=== PATIENT | male | born 1945 | race Hispanic/Latino ===

== ENCOUNTER 2016-11-05 21:07 | Inpatient (IN) | payer MEDICARE, OTHER ==
[2016-11-05] MEDS ORDERED: Albuterol-Ipratrop 3 mg / 0.5 (3 ml) UD IH STA (21:20)
[2016-11-05] MEDS ORDERED: Albuterol-Ipratrop 3 mg / 0.5 (3 ml) UD ONE (21:22)
[2016-11-05 21:49] LABS: BASO # 0.04 K/mm3 (0.0-2.0); BASO % 0.6 % (0.0-3.0); EOS # 0.2 (0.0-0.7); EOS % 2.8 % (1.5-5.0); GRAN # 5.05 (1.4-6.5); GRAN % 69.5 % (50.0-68.0); HEMATOCRIT 30.1 % (42.0-52.0); LYMPH # 1.1 (1.2-3.4); LYMPH % 14.5 % (22.0-35.0); MEAN CELL VOLUME 91.2 fl (80.0-105.0); MEAN CORPUSCULAR HEMOGLOBIN 33.9 pg (25.0-35.0); MEAN CORPUSCULAR HGB CONC 37.2 g/dl (31.0-37.0); MEAN PLATELET VOLUME 11.8 fl (7.0-11.0); MONO # 0.9 (0.1-0.6); MONO % 12.6 % (1.0-6.0); RED CELL DISTRIBUTION WIDTH 16.7 % (11.5-14.5); WHITE BLOOD COUNT 7.3 10^3/ul (4.5-11.0)
[2016-11-05 21:54] LABS: BILIRUBIN,TOTAL 1.7 mg/dL (0.2-1.3); CALCIUM 9.5 mg/dL (8.4-10.5); POTASSIUM 4.6 mmol/L (3.6-5.0)
[2016-11-05 22:07] LABS: TROPONIN I 0.01 ng/mL
--- NOTE | 2016-11-05 22:17 | ED PDOC ---
Arrival/HPI - General Chief Complaint: Shortness Of Breath Time Seen by Provider: 11/05/16 21:08 Historian: Patient - History of Present Illness Narrative History of Present Illness (Text): 11/05/16 21:35 A 71 year old male, whose past medical history includes hypertension, atrial fibrillation, and asbestosis, presents to the emergency department complaining of shortness of breath for 1 day. Patient denies of fever, chills, nausea, vomiting, diarrhea, abdominal pain, chest pain, or any other complaints. PMD: Dr. Reyes Time/Duration: 24 hours Symptom Onset: Sudden Symptom Course: Unchanged Activities at Onset: Rest, Light Context: Home Past Medical History - Provider Review Nursing Documentation Reviewed: Yes - Cardiac Hx Atrial Fibrillation: Yes Hx Hypertension: Yes - Pulmonary Hx Respiratory Disorders: Yes (asbestosis) - Neurological Hx Paralysis: No - HEENT Hx Macular Degeneration: Yes - Renal Hx Renal Disorder: No Hx Kidney Stones: Yes (several times) - Endocrine/Metabolic Hx Diabetes Mellitus Type 2: Yes Hx Hypothyroidism: Yes - Hematological/Oncological Hx Blood Transfusions: No Hx Blood Transfusion Reaction: No - Integumentary Hx Dermatological Disorder: No Other/Comment: ble brown skin discolorations - Musculoskeletal/Rheumatological Hx Musculoskeletal Disorders: Yes - Gastrointestinal Hx Gastrointestinal Disorders: Yes (colon polyps) - Genitourinary/Gynecological Other/Comment: kidney stones - Psychiatric Hx Emotional Abuse: No Hx Physical Abuse: No Hx Substance Use: No - Surgical History Hx Cholecystectomy: Yes Other/Comment: hernia repair. bilateral knee surgery - Anesthesia Hx Anesthesia Reactions: No Hx Malignant Hyperthermia: No - Suicidal Assessment Feels Threatened In Home Enviroment: No Family/Social History - Physician Review Nursing Documentation Reviewed: Yes Family/Social History: No Known Family HX Smoking Status: Former Smoker Hx Alcohol Use: No (SOCIALLY) Hx Substance Use: No Allergies/Home Meds Allergies/Adverse Reactions: Allergies No Known Allergies Allergy (Verified 11/05/16 21:11) Home Medications: Home Meds Medication Instructions Recorded Confirmed Cholecalciferol (Vitamin D3) 5,000 iu PO DAILY 10/08/14 11/05/16 [Vitamin D3] Aspirin [Ecotrin] 81 mg PO DAILY 04/30/15 11/09/16 Insulin Aspart Prot/Insuln Asp 25 units SQ BID 04/30/15 11/05/16 [Novolog Mix 70-30 Vial] Levothyroxine Sodium [Levoxyl] 88 mcg PO QAM 04/30/15 11/09/16 Amiodarone [Cordarone] 200 mg PO QAM 05/12/15 11/09/16 Fenofibrate [Tricor] 134 mg PO DAILY 05/12/15 11/09/16 Metoprolol Succinate [Toprol XL] 50 mg PO QAM 05/12/15 11/09/16 Liraglutide [Victoza 3-Anuel] 1.8 mg SQ DAILY 10/22/16 11/05/16 Pantoprazole [Protonix EC Tab] 40 mg PO DAILY 10/22/16 11/09/16 amLODIPine [Norvasc] 5 mg PO DAILY 10/22/16 11/09/16 Cilostazol 50 mg PO BID 11/06/16 11/09/16 Gabapentin [Neurontin] 300 mg PO BID 11/06/16 11/09/16 Review of Systems - Physician Review All systems were reviewed & negative as marked: Yes - Review of Systems Constitutional: absent: Fevers, Night Sweats Respiratory: SOB. absent: Cough Cardiovascular: absent: Chest Pain Gastrointestinal: absent: Abdominal Pain, Diarrhea, Nausea, Vomiting Physical Exam Vital Signs Reviewed: Yes Vital Signs Temp Pulse Resp BP Pulse Ox 11/06/16 02:04 79 18 144/86 100 11/06/16 00:59 151/73 H 11/06/16 00:36 80 18 155/56 H 98 11/05/16 21:25 23 100 11/05/16 21:20 97.7 F 76 16 162/69 H 100 Temperature: Afebrile Blood Pressure: Hypertensive Pulse: Regular Respiratory Rate: Normal Appearance: Positive for: Well-Appearing Pain Distress: None Mental Status: Positive for: Alert and Oriented X 3 - Systems Exam Head: Present: Atraumatic, Normocephalic Pupils: Present: PERRL Extroacular Muscles: Present: EOMI Conjunctiva: Present: Normal Mouth: Present: Moist Mucous Membranes Neck: Present: Normal Range of Motion Respiratory/Chest: Present: Decreased Breath Sounds (bilaterally poor breath ) Cardiovascular: Present: Regular Rate and Rhythm, Normal S1, S2. No: Murmurs Abdomen: Present: Normal Bowel Sounds. No: Tenderness, Distention, Peritoneal Signs Back: Present: Normal Inspection Upper Extremity: Present: Normal Inspection. No: Cyanosis, Edema Lower Extremity: Present: Normal Inspection. No: Edema Neurological: Present: GCS=15, CN II-XII Intact, Speech Normal Skin: Present: Warm, Dry, Normal Color. No: Rashes Psychiatric: Present: Alert, Oriented x 3, Normal Insight, Normal Concentration Medical Decision Making ED Course and Treatment: 11/05/16 21:40 Impression: 71 year old male with shortness of breath. Physical exam shows bilaterally poor breathing. Plan: -- EKG -- Chest X-ray -- Labs -- Blood Culture -- Duoneb -- Reassess and disposition Prior Visits: Notes and results from previous visits were reviewed. Patient was last seen in the emergency department on 04/30/2015 for renal colic. Progress Notes: 11/05/16 21:37 EKG: Ordered, reviewed, and independently interpreted the EKG. Rate : 78 BPM Rhythm : Sinus rhytm with 1st degree AV block Interpretation : ST and T-wave abnormality, consider lateral ischemia. Abnormal ECG Comparison : No previous EKG for comparison. 11/06/2016 00:37 NM Lung Perfusion and Ventilation Scan FINDINGS: Ventilation: Unremarkable. No ventilation defects. Perfusion: There are multifocal tracer accumulation within the lungs felt to be iatrogenic secondary to clumping of the tracer material. No segmental perfusion defects. IMPRESSION: No findings to suggest pulmonary embolism. Thank you for allowing us to participate in the care of your patient. Dictated and Authenticated by: Jose Jimenez MD 11/06/16 00:16 Chest X-ray fluoroplex consistent with asbestosis. case d/w dr eisenberg will tele obs 11/09/16 16:17 - Lab Interpretations Microbiology Results: Microbiology Results 11/05/16 21:40 Blood-Venous Blood Culture - Preliminary NO GROWTH AFTER 3 DAYS 11/05/16 21:15 Blood-Venous Blood Culture - Preliminary NO GROWTH AFTER 3 DAYS Lab Results: 11/05/16 21:25 11/05/16 21:25 Lab Results 11/05/16 21:25: D-Dimer, Quantitative 4.26 H 11/05/16 21:25: Sodium 145, Potassium 4.6, Chloride 114 H, Carbon Dioxide 17 L, Anion Gap 19, BUN 47 H, Creatinine 3.5 H, Est GFR ( Amer) 21, Est GFR ( Non-Af Amer) 17, Random Glucose 218 H, Calcium 9.5, Total Bilirubin 1.7 H, AST 68 H, ALT 44, Alkaline Phosphatase 131, Lactate Dehydrogenase 724 H, Total Creatine Kinase 121, Troponin I 0.01, NT-Pro-B Natriuret Pep 1530 H, Total Protein 8.0, Albumin 4.0, Globulin 3.9, Albumin/Globulin Ratio 1.0 L 11/05/16 21:25: WBC 7.3, RBC 3.30 L, Hgb 11.2 L, Hct 30.1 L, MCV 91.2, MCH 33.9 , MCHC 37.2 H, RDW 16.7 H, Plt Count 148, MPV 11.8 H, Gran % 69.5 H, Lymph % ( Auto) 14.5 L, [place] % (Auto) 12.6 H, Eos % (Auto) 2.8, Baso % (Auto) 0.6, Gran # 5.05, Lymph # 1.1 L, [place] # 0.9 H, Eos # 0.2, Baso # 0.04 I have reviewed the lab results: Yes - RAD Interpretation Radiology Orders: 11/05/16 21:20 CHEST PORTABLE [RAD] Stat 11/05/16 22:13 LUNG PERF & VENT SCAN [NM] Stat - Medication Orders Current Medication Orders: Discontinued Medications Acetaminophen (Tylenol 325mg Tab) 650 mg PO Q4H PRN PRN Reason: Pain, Mild (1-3) Albuterol/Ipratropium (Duoneb 3 Mg/0.5 Mg (3 Ml) Ud) 3 ml IH STAT STA Stop: 11/05/16 21:21 Last Admin: 11/05/16 21:23 Dose: 3 ml Albuterol/Ipratropium (Duoneb 3 Mg/0.5 Mg (3 Ml) Ud) Confirm Administered Dose 3 ml .ROUTE .STK-MED ONE Stop: 11/05/16 21:23 Last Admin: 11/05/16 21:25 Dose: Albuterol/Ipratropium (Duoneb 3 Mg/0.5 Mg (3 Ml) Ud) 3 ml IH Q4H PRN PRN Reason: Shortness of Breath Amiodarone HCl (Cordarone) 200 mg PO DAILY [facility] Last Admin: 11/09/16 10:56 Dose: 200 mg Amlodipine Besylate (Norvasc) 5 mg PO DAILY [facility] Last Admin: 11/09/16 10:55 Dose: 5 mg Aspirin (Ecotrin) 81 mg PO DAILY [facility] Last Admin: 11/09/16 10:55 Dose: 81 mg Calcium Acetate (Phoslo) 667 mg PO WM [facility] Last Admin: 11/09/16 12:55 Dose: 667 mg Cilostazol (Pletal) 50 mg PO BID [facility] Last Admin: 11/09/16 10:55 Dose: 50 mg Darbepoetin Ju[place]ino (Aranesp) 60 mcg SC ONCE ONE Stop: 11/09/16 10:01 Last Admin: 11/09/16 12:55 Dose: 60 mcg Fenofibrate (Tricor) 145 mg PO DAILY [facility] Last Admin: 11/09/16 10:55 Dose: 145 mg Furosemide (Lasix) 20 mg IVP ONCE ONE Stop: 11/06/16 00:46 Last Admin: 11/06/16 00:59 Dose: 20 mg Furosemide (Lasix) 80 mg IVP Q12H [facility] Last Admin: 11/08/16 22:20 Dose: 80 mg Gabapentin (Neurontin) 300 mg PO BID [facility] PRN Reason: Protocol Last Admin: 11/09/16 10:54 Dose: 300 mg Re-Assess: Reassess Psych Meds Document 11/09/16 11:54 GE (Rec: 11/09/16 12:20 GE [id number]) Reassess Psych Med Effective Heparin Sodium (Porcine) (Heparin) 8,800 units IV ONCE ONE PRN Reason: Protocol Stop: 11/05/16 22:28 Last Admin: 11/05/16 23:00 Dose: 8,800 units Heparin Sodium/Dextrose (Heparin 25,000 Units/250ml In D5w) 25,000 units in 250 mls @ 19.91 mls/hr IV .[id number] PRN; Protocol; 17 UNITS/KG/HR PRN Reason: ADJUST RATE PER PROTOCOL Last Admin: 11/06/16 13:23 Dose: 14.42 units/kg/hr, 16.888 mls/hr Insulin Detemir (Levemir) 12 unit SC [facility] Last Admin: 11/08/16 22:21 Dose: 12 unit Insulin Human Regular (Humulin R High) 0 units SC [facility] PRN Reason: Protocol Last Admin: 11/09/16 12:55 Dose: 1 units Levothyroxine Sodium (Synthroid) 88 mcg PO ACB [facility] Last Admin: 11/09/16 08:49 Dose: 88 mcg Metolazone (Zaroxolyn) 5 mg PO DAILY [facility] Last Admin: 11/08/16 10:02 Dose: 5 mg Metoprolol Succinate (Toprol Xl) 50 mg PO BRK [facility] Last Admin: 11/09/16 08:51 Dose: Nystatin (Nystop Topical Powder) 0 gm TOP BID [facility] Last Admin: 11/09/16 12:20 Dose: Not Given Non-Admin Reason: Patient Refused Pantoprazole Sodium (Protonix Ec Tab) 40 mg PO ACB [facility] Last Admin: 11/09/16 08:49 Dose: 40 mg - Scribe Statement The provider has reviewed the documentation as recorded by the Serjio Marques Provider Scribe Attestation: All medical record entries made by the Serjio were at my direction and personally dictated by me. I have reviewed the chart and agree that the record accurately reflects my personal performance of the history, physical exam, medical decision making, and the department course for this patient. I have also personally directed, reviewed, and agree with the discharge instructions and disposition. Disposition/Present on Arrival - Present on Arrival Any Indicators Present on Arrival: No History of DVT/PE: No History of Uncontrolled Diabetes: No Urinary Catheter: No History of Decub. Ulcer: No History Surgical Site Infection Following: None - Disposition Have Diagnosis and Disposition been Completed?: Yes Diagnosis: CHF (congestive heart failure) Disposition: HOSPITALIZED Disposition Time: 00:50 Condition: GOOD
[2016-11-05 22:18] VITALS: BMI 37.0
--- NOTE | 2016-11-05 22:21 | ED PDOC ---
Physical Exam Vital Signs Temp Pulse Resp BP Pulse Ox 11/05/16 21:25 23 100 11/05/16 21:20 97.7 F 76 16 162/69 H 100 Medical Decision Making ED Course and Treatment: 11/05/16 22:20 pt cleared by pes for dc - Lab Interpretations Lab Results: 11/05/16 21:25 11/05/16 21:25 Lab Results 11/05/16 21:25: D-Dimer, Quantitative 4.26 H 11/05/16 21:25: Sodium 145, Potassium 4.6, Chloride 114 H, Carbon Dioxide 17 L, Anion Gap 19, BUN 47 H, Creatinine 3.5 H, Est GFR ( Amer) 21, Est GFR ( Non-Af Amer) 17, Random Glucose 218 H, Calcium 9.5, Total Bilirubin 1.7 H, AST 68 H, ALT 44, Alkaline Phosphatase 131, Lactate Dehydrogenase 724 H, Total Creatine Kinase 121, Troponin I 0.01, NT-Pro-B Natriuret Pep 1530 H, Total Protein 8.0, Albumin 4.0, Globulin 3.9, Albumin/Globulin Ratio 1.0 L 11/05/16 21:25: WBC 7.3, RBC 3.30 L, Hgb 11.2 L, Hct 30.1 L, MCV 91.2, MCH 33.9 , MCHC 37.2 H, RDW 16.7 H, Plt Count 148, MPV 11.8 H, Gran % 69.5 H, Lymph % ( Auto) 14.5 L, [place] % (Auto) 12.6 H, Eos % (Auto) 2.8, Baso % (Auto) 0.6, Gran # 5.05, Lymph # 1.1 L, [place] # 0.9 H, Eos # 0.2, Baso # 0.04 - RAD Interpretation Radiology Orders: 11/05/16 21:20 CHEST PORTABLE [RAD] Stat 11/05/16 22:13 LUNG PERF & VENT SCAN [NM] Stat - Medication Orders Current Medication Orders: Discontinued Medications Albuterol/Ipratropium (Duoneb 3 Mg/0.5 Mg (3 Ml) Ud) 3 ml IH STAT STA Stop: 11/05/16 21:21 Last Admin: 11/05/16 21:23 Dose: 3 ml Albuterol/Ipratropium (Duoneb 3 Mg/0.5 Mg (3 Ml) Ud) Confirm Administered Dose 3 ml .ROUTE .[facility]-MED ONE Stop: 11/05/16 21:23 Last Admin: 11/05/16 21:25 Dose: Disposition/Present on Arrival - Present on Arrival Any Indicators Present on Arrival: No History of DVT/PE: No History of Uncontrolled Diabetes: No Urinary Catheter: No History of Decub. Ulcer: No History Surgical Site Infection Following: None - Disposition Have Diagnosis and Disposition been Completed?: Yes Diagnosis: Anxiety Disposition: HOME/ ROUTINE Disposition Time: 22:20 Condition: GOOD Referrals: Jim eRyes MD [Primary Care Provider] - Follow up with primary Forms: [employer] ([place]i)
[2016-11-05] MEDS ORDERED: Heparin 25,000units in D5W 25,000 UNITS/250 ML BAG IV PRN (22:27)
[2016-11-05] MEDS: Heparin 25,000units in D5W 25,000 UNITS/250 ML BAG IV PRN (23:03)
[2016-11-06] MEDS ORDERED: Albuterol-Ipratrop 3 mg / 0.5 (3 ml) UD IH PRN (01:00)
[2016-11-06] MEDS: Heparin 25,000units in D5W 25,000 UNITS/250 ML BAG IV PRN ×2 (08:00→13:23)
--- NOTE | 2016-11-06 10:39 | RAD ---
HISTORY: sob COMPARISON: 04/30/2015. FINDINGS: LUNGS: Extensive bilateral calcified pleural changes are again noted ; findings consistent with prior exposure to asbestos however clinical correlation with history recommended. Possibility of subtle underlying infiltrate not completely excluded. PLEURA: No significant pleural effusion identified, no pneumothorax apparent. CARDIOVASCULAR: . Heart appears enlarged. OSSEOUS STRUCTURES: No significant abnormalities. VISUALIZED UPPER ABDOMEN: Normal. OTHER FINDINGS: None. IMPRESSION: Extensive bilateral calcified pleural plaque changes again noted, consistent with prior asbestos exposure however clinical correlation recommended. Possibility of subtle underlying infiltrate not completely excluded Cardiomegaly.
[2016-11-06] MEDS: Metoprolol Succinate 50 mg XL Tab PO SCH (13:06)
[2016-11-06] MEDS: Cilostazol 50 mg Tab UD PO SCH ×2 (13:06→18:08)
[2016-11-06] MEDS: Levothyroxine 88 MCG TAB PO SCH (13:06)
[2016-11-06] MEDS: Pantoprazole 40 mg EC Tab PO SCH (13:07)
--- NOTE | 2016-11-06 13:25 | CP.PCM.CON ---
History of Present Illness - History of Present Illness History of Present Illness: 71 yo M w/ pmh of CKD, HTN, DM, ? CHF that presented with sob. Pt states he has had worsening sob and le edema for the last 2 weeks or so that has been progressively getting worse. Its not clear if he has CHF Or not he follows w/ cardiology though. He does have known history of kidney disease and follows w/ Dr. Dalton. At home on a review of his outpt meds he is not on a diuretic. He denies any n/v. he dose endorse NSAID use bid for the past week or so for this arthritis. He otherwise states uop has been ok. ROS: a full detailed ROS is negative except as in my hpi famhx: no esrd sochx: no active smoke/etoh/ivdu Past Patient History - Past Social History Smoking Status: 2 cigars/d - CARDIAC Hx Cardia Arrhythmia: Yes Hx Congestive Heart Failure: Yes Hx Hypertension: Yes - PULMONARY Hx Respiratory Disorders: Yes (Asbestosis) - NEUROLOGICAL Hx Paralysis: No - HEENT Hx Macular Degeneration: Yes - RENAL Hx Kidney Stones: Yes - ENDOCRINE/METABOLIC Hx Diabetes Mellitus Type 1: Yes - HEMATOLOGICAL/ONCOLOGICAL Hx Blood Transfusions: No Hx Blood Transfusion Reaction: No - INTEGUMENTARY Hx Dermatological Problems: No Other/Comment: ble brown skin discolorations - MUSCULOSKELETAL/RHEUMATOLOGICAL Hx Falls: No - GASTROINTESTINAL Hx Gastrointestinal Disorders: Yes (colon polyps) - GENITOURINARY/GYNECOLOGICAL Other/Comment: kidney stones - PSYCHIATRIC Hx Substance Use: No - SURGICAL HISTORY Hx Surgeries: Yes Hx Cholecystectomy: Yes Hx Musculoskeletal Surgery: Yes - ANESTHESIA Hx Anesthesia Reactions: No Hx Malignant Hyperthermia: No Meds Allergies/Adverse Reactions: Allergies Allergy/AdvReac Type Severity Reaction Status Date / Time No Known Allergies Allergy Verified 11/05/16 21:11 - Medications Medications: Current Medications Acetaminophen (Tylenol 325mg Tab) 650 mg PO Q4H PRN PRN Reason: Pain, Mild (1-3) Albuterol/Ipratropium (Duoneb 3 Mg/0.5 Mg (3 Ml) Ud) 3 ml IH Q4H PRN PRN Reason: Shortness of Breath Amiodarone HCl (Cordarone) 200 mg PO DAILY [facility] Amlodipine Besylate (Norvasc) 5 mg PO DAILY [facility] Last Admin: 11/06/16 13:06 Dose: 5 mg Aspirin (Ecotrin) 81 mg PO DAILY [facility] Cilostazol (Pletal) 50 mg PO BID [facility] Last Admin: 11/06/16 13:06 Dose: 50 mg Fenofibrate (Tricor) 145 mg PO DAILY [facility] Last Admin: 11/06/16 13:06 Dose: 145 mg Furosemide (Lasix) 80 mg IVP Q12H [facility] Last Admin: 11/06/16 13:07 Dose: 80 mg Gabapentin (Neurontin) 300 mg PO BID [facility] PRN Reason: Protocol Heparin Sodium/Dextrose (Heparin 25,000 Units/250ml In D5w) 25,000 units in 250 mls @ 19.91 mls/hr IV .[id number] PRN; Protocol; 17 UNITS/KG/HR PRN Reason: ADJUST RATE PER PROTOCOL Last Admin: 11/06/16 08:00 Dose: 14.42 units/kg/hr, 16.9 mls/hr Insulin Detemir (Levemir) 12 unit SC HS [facility] Levothyroxine Sodium (Synthroid) 88 mcg PO ACB [facility] Last Admin: 11/06/16 13:06 Dose: 88 mcg Metoprolol Succinate (Toprol Xl) 50 mg PO BRK [facility] Last Admin: 11/06/16 13:06 Dose: 50 mg Nystatin (Nystop Topical Powder) 0 gm TOP BID [facility] Pantoprazole Sodium (Protonix Ec Tab) 40 mg PO ACB [facility] Last Admin: 11/06/16 13:07 Dose: 40 mg Physical Exam - Constitutional Appears: Non-toxic - Head Exam Head Exam: ATRAUMATIC - Eye Exam Eye Exam: Normal appearance - ENT Exam ENT Exam: Mucous Membranes Moist - Neck Exam Neck exam: Positive for: Normal Inspection - Respiratory Exam Additional comments: dec at bases - Cardiovascular Exam Cardiovascular Exam: +S1, +S2 - GI/Abdominal Exam GI & Abdominal Exam: Normal Bowel Sounds - Extremities Exam Additional comments: 2+ edema - Back Exam Back exam: NORMAL INSPECTION - Neurological Exam Neurological exam: Alert, Oriented x3 - Psychiatric Exam Psychiatric exam: Normal Mood - Skin Skin Exam: Dry Results - Vital Signs Recent Vital Signs: Last Vital Signs Temp 97.9 F 11/06/16 12:00 Pulse 72 11/06/16 12:00 Resp 20 11/06/16 12:00 BP 135/60 11/06/16 13:07 Pulse Ox 98 11/06/16 06:00 - Labs Result Diagrams: 11/05/16 21:25 11/05/16 21:25 Labs: Laboratory Results - last 24 hr 11/06/16 11/06/16 06:00 11:49 APTT > 180.0 H* POC Glucose (mg/dL) 323 H Assessment & Plan - Assessment and Plan (Free Text) Assessment: ARF / CKD stage iii/iv/ anemia / ? CHF/ htn/ nsaid abuse plan: [place] - not sure of baseline but suspect [place] component from NSAID abuse this week +/- heart failure. Willl check ua and upcr Rec TTE. Agree w/ diuresis as ordered Will check renal us to r/o obstructive component bp well controlled hold nsaid
[2016-11-06] MEDS: Nystatin 100,000 Units/gm Topical Pow(15 gm) TOP SCH ×2 (14:20→18:08)
--- NOTE | 2016-11-06 16:30 | NM ---
COMPARISON: Portable chest 11/05/2016 TECHNIQUE: 30.0 mCi technetium 99-m DTPA aerosol. 3.0 mCI technetium 99-m MAA administered intravenously. FINDINGS: VENTILATION COMPONENT: Normal. PERFUSION COMPONENT: Essentially Normal. There are few areas of hyperactivity in the right upper lobe and left lower lobe which are felt to be related to clumping of radioisotope. IMPRESSION: Lowprobability ventilation perfusion scan for pulmonary embolism. Concur with V rad preliminary interpretation performed 11/06/2016 12:37 a.m..
--- NOTE | 2016-11-06 16:58 | US ---
PROCEDURE: Ultrasound of the Kidneys HISTORY: arf COMPARISON: Comparison made with prior renal ultrasound dated 01/16/2016 [address] made with CT scan of the abdomen and pelvis dated 07/19/2016 TECHNIQUE: Sonogram of the kidneys. FINDINGS: RIGHT KIDNEY: Measures: Measures approximately 10.0 x 4.5 x 5.2 cm. Renal parenchyma is appears slightly echogenic; rule out underlying medical renal disease. Clinical correlation recommended. No stone, solid mass lesion or hydronephrosis visualized. LEFT KIDNEY: Measures approximately 10.0 x 4.5 x 5.6 cm. Slight increased echogenicity; rule out underlying medical renal disease. Previously noted calculus in the lower pole left kidney (as seen on prior CT scan abdomen pelvis 07/19/2016 is poorly visualized on this exam OTHER FINDINGS: None. IMPRESSION: Previously noted nonobstructing calculus lower pole left kidney poorly visualized on this study as detailed above. Rule out underlying mild medical renal disease as detailed above.
[2016-11-06 18:08] LABS: URINE BILIRUBIN NEGATIVE (NEGATIVE); URINE BLOOD TRACE-LYSED (NEGATIVE); URINE GLUCOSE (UA) 250 mg/dL (NEGATIVE); URINE KETONE NEGATIVE (NEGATIVE); URINE LEUKOCYTE ESTERASE NEGATIVE Leu/uL (NEGATIVE); URINE PROTEIN NEGATIVE mg/dL (<30 mg/dL); URINE UROBILINOGEN 0.2 E.U./dL (<1 E.U./dL)
[2016-11-06] MEDS: metOLazone 5 MG TAB PO SCH (18:09)
[2016-11-06] MEDS: Insulin Reg-HIGH-Coverage SC SCH ×2 (18:09→22:04)
[2016-11-06 18:10] LABS: URINE APPEARANCE CLEAR (CLEAR); URINE COLOR YELLOW (YELLOW)
[2016-11-06 18:22] LABS: URINE BACTERIA FEW (NEG); URINE WBC 0 - 2 /hpf (0-6)
[2016-11-06] MEDS: Insulin Detemir 100 units/ml Vial (Levemir) SC SCH (22:07)
--- NOTE | 2016-11-07 01:34 | CARD ---
APPROVED REPORT EKG Measurement Heart [id number] <Conclusion> Sinus rhythm with 1st degree AV block Incomplete left bundle branch block ST & T wave abnormality, consider lateral ischemia Abnormal ECG
--- NOTE | 2016-11-07 05:54 | CON ---
DATE: 11/06/2016 SUBJECTIVE: The patient is in room 270, bed 1. REASON FOR CONSULTATION: Shortness of breath and swelling on the legs. HISTORY OF PRESENT ILLNESS: Patient known to have hypertension since five years, renal dysfunction since one year, diabetes mellitus since 20 years, asbestosis of lungs, atrial fibrillation for which he has ablation converted to sinus rhythm, history of kidney stones, admitted with history significant for which he is getting shortness of breath and he has got edema of the legs. He sleeps with three pillows and sometimes wakes up and he has to sit up for shortness of breath. Patient denies chest pain or palpitation. Patient was also told to have peripheral vascular disease. PAST MEDICAL HISTORY: Includes hypertension, renal dysfunction, diabetes mellitus, atrial fibrillation, for which he has ablation to maintain a sinus rhythm, asbestosis of lungs. Kidney stones most of them have passed, he will go to the stone center, patient still has one stone in one of the kidneys, a large stone. PERSONAL HISTORY: He smokes two cigars a day, used to smoke four packs of cigarettes for 30 years. Denies drinking. ALLERGIES: NO ALLERGIES. THE PATIENT DOES NOT HAVE ANY ALLERGIES. REVIEW OF SYSTEMS: All other systems were reviewed and positive is mentioned in the history. Patient states that he has gained around 50 pounds of weight in last four weeks. MEDICATIONS: Home medications included Neurontin 300 mg b.i.d., cilostazol 50 mg b.i.d., Norvasc 5 mg daily, Protonix 40 mg daily, Toprol-XL 50 mg daily, Victoza 3-Anuel 1.8 mg subQ daily, Levoxyl 88 mcg p.o. daily, insulin Novolog Mix 70/30, insulin aspart, fenofibrate, which is TriCor 134 mg p.o. daily, aspirin 81 mg daily, amiodarone 200 mg p.o. daily. PHYSICAL EXAMINATION VITAL SIGNS: Blood pressure 135/58, respiration 20, pulse 70, and temperature 97.9. HEENT: Head is normocephalic. Eyes, pupils are normal. Conjunctivae normal. NECK: JVP low. LUNGS: Bilateral rales all over the lungs. CARDIOVASCULAR: S1 and S2. ABDOMEN: Protuberant, according to the patient abdominal girth has increased. No organomegaly. Bowel sounds normal. EXTREMITIES: Patient has bilateral edema on the legs extending above the knees. LABORATORY DATA: Including WBC 7.3, hemoglobin 11.2, hematocrit of 30.1, and platelet 148, 000. Sodium 145, potassium 4.6, BUN 47 and creatinine 3.5. Random sugar 323, another glucose 212 and 218. Total bilirubin is 1.7, AST 68, troponin 0.01, NT-proBNP 1530. Protein and albumin normal. D-dimer 4.26. Patient's PTT is above 180, normal is 23.7 to 30.8. Chest x-ray shows extensive bilateral calcified pleural plaque changes consistent with asbestosis, cardiomegaly. EKG showed regular sinus rhythm with prolonged [place] ST-T changes. DIAGNOSES: Fifty pound gain of weight in last four weeks, fluid overload, kidney failure, diabetes mellitus, hypertension, kidney stones, asbestosis of lungs, atrial fibrillation status post ablation sinus rhythm, prolonged APTT, and anemia. PLAN: Patient had a stress test October 21, 2016 it shows a normal ejection fraction of 65%. 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 Patient is on amiodarone 200 mg daily, DuoNeb nebulizer therapy, aspirin 81 mg daily, heparin drip so that PTT that is prolonged is probably related to heparin, Lasix 80 mg IV q. 12 hour, Neurontin 300 mg b.i.d., amlodipine 5 mg daily, Pletal 50 mg p.o. b.i.d., Protonix 40 mg daily, Synthroid 88 mcg p.o. daily, Toprol-XL 50 mg p.o. daily, and fenofibrate 145 mg p.o. daily. We will also give Zaroxolyn 5 mg today to increase the diuresis and we will monitor the kidney function and we will follow with you closely. Isabella Connors MD
--- NOTE | 2016-11-07 06:18 | HP ---
CHIEF COMPLAINT: Volume overload, body edema, shortness of breath. HISTORY OF PRESENT ILLNESS: This is a 71-year-old man, new patient to me, but known to my office for several years, as he sees my partner Dr. Jim Reyes on a regular basis for diabetes and hypertension. The patient has a history of hypertension and diabetes, as well as first-degree AV block as best I recall and the patient reports there is a history of atrial fibrillation reported in the hospital records. I'll need to pursue this a little further. 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 He underwent Thallium Stress Test on 10/21/2016, 15 days ago, which has reported that it showed no ischemia and normal ejection fraction and so with the diagnoses of volume overload and CHF admitted in the ER and arrangements were made for him to be admitted to medical floor, because of his symptoms of shortness of breath, VQ scan was done. PAST MEDICAL HISTORY: Significant for hypertension and diabetes as well as renal insufficiency for which he follows closely with renal senior recruitment consultant Dr. Dalton. He follows a diabetic diet, takes insulin at home. Has recently seen Dr. Emery Dia for both venous and arterial Doppler's of lower extremities in 07/2016. No evidence of venous thrombus and arterial Doppler showed some degree of peripheral artery disease. CURRENT MEDICATIONS: Include amlodipine, pantoprazole, metoprolol, Victoza, Levoxyl, levothyroxine, NovoLog 70/30 insulin, Neurontin, fenofibrate, cilostazol, vitamin D, aspirin, and amiodarone. PAST SURGICAL HISTORY: Include right total knee replacement. ALLERGIES: He has no known allergies. SOCIAL HISTORY: Does not smoke or drink alcohol. REVIEW OF SYSTEMS: Otherwise unremarkable except for the items mentioned above, in particularly the worsening shortness of breath in the just the few days and chronic arthritis, especially knees and back. PHYSICAL EXAMINATION GENERAL: The patient was seen resting comfortably in room 270, bed 1 this Tuesday morning with his , son, and sister at the bedside. His sister is well known nurse from pediatrics floor here at [facility]. The patient was resting, awake, and alert. HEENT: Head and neck were unremarkable. Conjunctivae pink. Mucous membranes moist. NECK: Supple without masses. Thyroid was not palpable. There were no carotid bruits. LUNGS: Clear with a few basilar crackles. HEART: Regular, but not tachycardic. ABDOMEN: Soft, moderately overweight. No firm tenderness. EXTREMITIES: Soft, pitting edema on the dependant portions of the thighs and buttocks and low back. IMPRESSION: 1. Volume overload, anasarca. (suspect CKD as major contributing factor) 2. Diabetes. 3. Hypertension. 4. Diabetic neuropathy. 5. Chronic kidney disease - renal insufficiency. 6. History of cardiac arrhythmia on amiodarone. We will need to pursue further, as the patient was not able to give a detailed history. (a-fib in past , cardioverted to RSR) 7. History of hypothyroidism. 9. History of gastrointestinal exacerbated symptoms, gastroesophageal reflux disease versus peptic ulcer disease, therefore on pantoprazole 40 mg daily. PLAN: Begin aggressive diuresis. Case was discussed with the patient's developer programmer analyst Dr. Connosr on the floor. We will ask for renal consultation by Dr. Dalton who knows the patient well. We will resume prior medications or finish coverage and insulin. Morning labs were ordered as well. We will need to follow closely to determine etiology of his anasarca and volume overload. Berto Reyes MD MTDD
[2016-11-07 08:17] LABS: BASO # 0.04 K/mm3 (0.0-2.0); BASO % 0.7 % (0.0-3.0); EOS # 0.2 (0.0-0.7); EOS % 2.5 % (1.5-5.0); GRAN # 4.06 (1.4-6.5); GRAN % 66.4 % (50.0-68.0); HEMATOCRIT 26.7 % (42.0-52.0); LYMPH # 1.1 (1.2-3.4); MEAN CELL VOLUME 90.5 fl (80.0-105.0); MEAN CORPUSCULAR HEMOGLOBIN 32.5 pg (25.0-35.0); MONO # 0.8 (0.1-0.6); MONO % 12.4 % (1.0-6.0); PLATELET COUNT 123 10^3/uL (120.0-450.0); RED CELL DISTRIBUTION WIDTH 16.7 % (11.5-14.5); RETIC% 2.13 % (0.5-1.5); WHITE BLOOD COUNT 6.1 10^3/ul (4.5-11.0)
[2016-11-07 08:30] LABS: ALB/GLOB RATIO 0.9 (1.1-1.8); BILIRUBIN,TOTAL 1.5 mg/dL (0.2-1.3); CALCIUM 9.1 mg/dL (8.4-10.5); POTASSIUM 4.3 mmol/L (3.6-5.0); TOTAL PROTEIN 6.6 g/dL (5.8-8.3)
[2016-11-07] MEDS: Insulin Reg-HIGH-Coverage SC SCH ×4 (08:31→21:49)
[2016-11-07 08:36] LABS: IRON 107 ug/dL (45-180)
[2016-11-07 08:39] LABS: TROPONIN I 0.06 ng/mL
[2016-11-07 08:46] LABS: FREE T4 2.5 ng/dL (0.78-2.19)
[2016-11-07 09:00] LABS: THYROID STIMULATING HORMONE 2.09 mIU/mL (0.46-4.68)
[2016-11-07 09:30] LABS: ERYTHROCYTE SEDIMENTATION RATE 35 mm/hr (0.00-15.0)
[2016-11-07] MEDS: Metoprolol Succinate 50 mg XL Tab PO SCH (09:45)
[2016-11-07] MEDS: Pantoprazole 40 mg EC Tab PO SCH (09:45)
[2016-11-07] MEDS: Cilostazol 50 mg Tab UD PO SCH ×2 (09:45→17:40)
[2016-11-07] MEDS: Levothyroxine 88 MCG TAB PO SCH (09:45)
[2016-11-07] MEDS: metOLazone 5 MG TAB PO SCH (09:46)
[2016-11-07] MEDS: Nystatin 100,000 Units/gm Topical Pow(15 gm) TOP SCH ×2 (12:31→18:57)
[2016-11-07 13:26] LABS: FOLATE 12.8 ng/mL
--- NOTE | 2016-11-07 14:04 | PN ---
DATE: 11/07/2016 SUBJECTIVE: The patient is seen this Tuesday morning in room 270, bed 1, with his and sister and family at the bedside. Leg edema has gone down a bit overnight, but creatinine has gone up to 4.0. He is a bit more comfortable and less short of breath. PHYSICAL EXAMINATION: HEENT: Head and neck unremarkable. GASTROINTESTINAL: Abdomen is a bit bloated and protuberant. He said he moved his bowels yesterday. ASSESSMENT AND PLAN: Renal note is appreciated by Dr. Shelton. We will continue diuresis for now as well as cardiology follow up. Case discussed with Dr. Connors, the patient has a history of atrial fibrillation in the past with cardioversion to sinus rhythm. We will await further renal input and workup as indicated. Berto Reyes MD
[2016-11-07] MEDS: Insulin Detemir 100 units/ml Vial (Levemir) SC SCH (21:49)
[2016-11-08 00:07] VITALS: O2SAT 97
--- NOTE | 2016-11-08 00:49 | PN ---
DATE: 11/07/2016 LOCATION: The patient in room 270, bed 1. REASON FOR CONSULTATION AND FOLLOWUP: Shortness of breath, swelling of the legs. SUBJECTIVE: The patient was admitted with shortness of breath, swollen legs. He still has shortness of breath and swollen legs, but he states he is feeling slightly better. Denies any chest pain or heart palpitation. PHYSICAL EXAMINATION: VITAL SIGNS: Blood pressure 126/70, respirations 20, pulse 64, temperature 98.4. HEENT: Head is normocephalic. Eyes: Pupils normal. Conjunctiva slightly pale. NECK: JVP is low. Carotids equal. Thorax, AP diameter normal. LUNGS: Bilateral rales. CARDIOVASCULAR: S1 and S2. ABDOMEN: Protuberant. Abdominal girth has increased recently. No organomegaly. Bowel sounds are normal. EXTREMITIES: The patient has edema. No clubbing. No cyanosis. LABORATORY DATA: WBC is 6.1, hemoglobin 9.6, hematocrit 26.7, platelet 123. Sodium 140, potassium 4.3, BUN 49, creatinine 4.0, random sugar 244. Total bilirubin 1.5. AST and ALT normal. Alkaline phosphatase normal. Troponin 0.06. TSH is 2.09. DIAGNOSES: Shortness of breath, edema of legs, fluid overload, renal failure, the patient gained 50 pounds in 4 weeks, hypertension, kidney stone, diabetes mellitus, asbestosis of the lung, atrial fibrillation, status post ablation, now in sinus rhythm, prolonged PTT and anemia. Today, PTT 132.6. The patient is on amiodarone 200 daily, aspirin 81 mg daily, DuoNeb hand nebulizer therapy, furosemide 50 mg IV q.12 hour, Zaroxolyn 5 mg daily, insulin as ordered, Neurontin 300 mg b.i.d., amlodipine 5 mg daily, Pletal 50 mg b.i.d., Protonix 40 daily, levothyroxine 88 mcg p.o. daily, Toprol-XL 50 mg b.i.d., Tricor 145 mg daily, Zaroxolyn 5 mg daily. PLAN: We will continue to diurese the patient, and we will continue to monitor with you and follow with you. Isabella Connors MD
[2016-11-08 06:57] LABS: BASO # 0.03 K/mm3 (0.0-2.0); BASO % 0.4 % (0.0-3.0); EOS # 0.2 (0.0-0.7); EOS % 2.8 % (1.5-5.0); GRAN # 4.57 (1.4-6.5); GRAN % 67.6 % (50.0-68.0); HEMATOCRIT 27.3 % (42.0-52.0); LYMPH # 1.1 (1.2-3.4); LYMPH % 16.5 % (22.0-35.0); MEAN CELL VOLUME 90.7 fl (80.0-105.0); MEAN CORPUSCULAR HEMOGLOBIN 32.9 pg (25.0-35.0); MEAN CORPUSCULAR HGB CONC 36.3 g/dl (31.0-37.0); MEAN PLATELET VOLUME 11.6 fl (7.0-11.0); MONO # 0.9 (0.1-0.6); MONO % 12.7 % (1.0-6.0); RED CELL DISTRIBUTION WIDTH 16.4 % (11.5-14.5); WHITE BLOOD COUNT 6.8 10^3/ul (4.5-11.0)
[2016-11-08 07:04] LABS: CALCIUM 9.3 mg/dL (8.4-10.5); POTASSIUM 4.4 mmol/L (3.6-5.0)
[2016-11-08] MEDS: Levothyroxine 88 MCG TAB PO SCH (08:14)
[2016-11-08] MEDS: Pantoprazole 40 mg EC Tab PO SCH (08:14)
[2016-11-08] MEDS: Metoprolol Succinate 50 mg XL Tab PO SCH (08:15)
--- NOTE | 2016-11-08 09:39 | PQF CHF ---
This form is a permanent part of the medical record Dr. Connors, Patient admitted with SOB, volume overload, leg edema/weight gain. Patient has hx CHF and afib. BNP elevated, treated with Lasix IV. Most recent EF noted to be 65%. Please document if CHF was present (type and severity), ruled out, undetermined. Clarification of your documentation is requested to better reflect the severity of illness and intensity of treatment of your patient. Indicators present [] Diagnosis of CHF and/or history of CHF [] BNP > 200 [] Imaging Finding of Pulmonary Edema /Pleural Effusions [x] Fluid/Volume Overload [] Pitting edema [] Ejection Fraction < 40% (Indicative of Systolic Heart Failure) [] Ejection Fraction > 40% (Indicative of Diastolic Heart Failure) [] Dyspnea / Orthopenea / Paroxysmal Nocturnal Dyspnea [] Other: Location in the medical record that reflects the above clinical findings: [] Treatment Provided: [] PHYSICIAN'S RESPONSE Based on your medical judgment of the clinical indicators outlined above, are you treating this patient for a known or suspected: [] Acute CHF [] Systolic [] Diastolic [] Combined [] Chronic CHF [] Systolic [] Diastolic [] Combined [] Acute on Chronic CHF []Systolic [] Diastolic [] Combined [] CHF due hypertension [] Acute systolic []Chronic systolic [] Acute/ chronic systolic [] Other, please indicate: [] [] If Unable to Determine, please check the box, sign and date. Present On Admission (POA) Indicator: [] Present at the time of admission [] Not present at the time of admission [] Clinically Undetermined In responding to this query, please exercise your independent professional judgment. The fact that a question is asked does not imply that any particular answer is desired or expected. Thank you for your clarification on this documentation. 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
[2016-11-08] MEDS: Cilostazol 50 mg Tab UD PO SCH ×2 (10:01→17:30)
[2016-11-08] MEDS: metOLazone 5 MG TAB PO SCH (10:02)
[2016-11-08] MEDS: Insulin Reg-HIGH-Coverage SC SCH ×4 (10:05→22:21)
[2016-11-08] MEDS: Nystatin 100,000 Units/gm Topical Pow(15 gm) TOP SCH ×2 (10:14→17:31)
--- NOTE | 2016-11-08 14:19 | PN ---
DATE: 11/08/2016 SUBJECTIVE: The patient is currently seen lying comfortable in bed on telemetry. Family is at bedside. The patient has diuresed 15 pounds since admission with IV diuretics and oral diuretic therapy. His lower extremity edema has significantly improved. MEDICATIONS: The patient is currently on Cordarone, DuoNeb, Ecotrin, insulin, IV Lasix, Neurontin, Norvasc, nystatin, Pletal, Protonix, Synthroid, Toprol, TriCor, Tylenol p.r.n. and Zaroxolyn. PHYSICAL EXAMINATION/OBJECTIVE: INTAKE/OUTPUT: Intake 1500 and output 4525. Weight today is 243 pounds down from 258 on admission. VITAL SIGNS: Blood pressure is 112/52, pulse is 65 and regular. Afebrile. Respiratory rate is 16. HEENT: Shows him to be normocephalic and atraumatic. Conjunctivae are pale. Sclerae nonicteric. NECK: Supple. No neck vein distention. CHEST: Clear to auscultation and percussion with slight decreased breath sounds at the bases. CARDIOVASCULAR: Shows regular rate and rhythm without audible murmurs, rubs or gallops. ABDOMEN: Soft. Bowel sounds are normal. No rebound, no guarding and no masses. EXTREMITIES: Continue to show 1 to 2+ pitting lower extremity edema. No cyanosis or clubbing. NEUROLOGIC: Shows him to be alert and oriented, with no focal deficits. LABORATORY DATA AND IMAGING: Renal ultrasound done on admission showed chronic medical renal disease and normal size kidneys. No obstruction. Admitting chest x-ray showed pleural plaquing consistent with asbestosis with the possibility of underlying infiltrates, not clearly seen. Admitting EKG showed normal sinus rhythm and first-degree AV block. LABORATORY DATA: CBC: White blood cell count is 6.8, with hemoglobin of 9.9, and platelet count is 118,000. Chemistries; normal electrolytes. BUN of 55 with a creatinine of 4.3, his baseline creatinine in the office in the early summer was in the low to mid 3 range. Last one actually being 3.1. Glucose is 165. Calcium is 9.3 and iron saturations are 31%. Thyroid function test showed free T4 level of 2.5, and TSH level of 2.09. ASSESSMENT: 1. Significant hypervolemia with edema and perhaps mild congestive heart failure. The patient has diuresed 15 pounds with intravenous Lasix and p.o. Zaroxolyn therapy as a consequence to that his BUN and creatinine have elevated, baseline BUN is the 40s and baseline creatinine is in the low 3 range. He is currently running a BUN of 55 with creatinine of 4.3. The patient and his family were explained that the elevation of BUN and creatinine is likely secondary to the aggressive diuresis given his significant edema and mild congestive heart failure. The elevation is unavoidable. We will be cautious not over diurese patient, he is still continues to have significant lower extremity edema and for my standpoint may remain on intravenous diuretic therapy together with oral diuretic therapy. 2. History of chronic kidney disease, stage III as a baseline with baseline creatinine in the low 3 range. 3. History of diabetic nephropathy, secondary to longstanding insulin-dependent diabetes mellitus. 4. History of anemia, secondary to chronic kidney disease. The patient will be started on Aranesp and he will receive oral iron supplements. 5. History of atrial fibrillation, status post ablation therapy currently in the sinus rhythm with first-degree atrioventricular block, currently stable. 6. History of hypothyroidism, appears to be clinically and biochemically euthyroid. 7. History of nephrolithiasis with stent placement. Past history of obstructive uropathy, not an issue at this time. 8. History of insulin-dependent diabetes mellitus. Continue current insulin regimen. Continue to monitor sugars. PLAN: 1. As discussed with the patient and family, the elevation of BUN and creatinine is unavoidable given the circumstance of needing diuresis. 2. However, we will be cautious not to over diurese patient. 3. Continue accurate intake and output and daily weights. 4. Perhaps switch over in the next 24 to 48 hours to oral Lasix therapy, with perhaps the ability to discontinue Zaroxolyn therapy. 5. Aranesp and oral iron to be started today. 6. Check phosphorous level, the patient as an outpatient had no evidence for secondary hyperparathyroidism given his kidney disease. Manpreet Dalton MD
--- NOTE | 2016-11-08 19:23 | PN ---
DATE: 11/08/2016 LOCATION: Room 270, Bed 1. REASON FOR CONSULTATION: Followup of shortness of breath and swelling of legs. SUBJECTIVE: The patient still has swelling of legs and shortness of breath, but is improving. Denies chest pain or palpitation. PHYSICAL EXAMINATION: VITAL SIGNS: Blood pressure 126/65, respirations 20, pulse 59, temperature 98.1. HEENT: Head is normocephalic. Eyes: Pupils normal. Conjunctivae are slightly pale. NECK: JVP is low. Carotids equal. Thorax; AP diameter normal. LUNGS: Basal rales present. CARDIOVASCULAR: S1 and S2. ABDOMEN: Soft. No organomegaly. Bowel sounds normal. EXTREMITIES: No clubbing. No cyanosis. Still has edema on the legs. LABORATORY DATA: WBC is 6.8, hemoglobin 9.9, hematocrit 27.3, platelets 118. Sodium 140, potassium 4.4, BUN 55, creatinine 4.3, sugar 189, calcium 9.3. The patient's output 4525 and input 1500 for a negative balance of 3 L. DIAGNOSES: Shortness of breath, edema of legs, fluid overload, renal failure, the patient gained 50 pound weight in 4 weeks, hypertension, kidney stone, diabetes mellitus, asbestosis of the lung, atrial fibrillation, status post ablation, now maintaining a sinus rhythm, prolonged PTT. PLAN: Continue diuresis. The patient is on amiodarone 200 mg daily, aspirin 81 mg daily, furosemide 80 mg IV q.12 hours, amlodipine 5 mg daily, Pletal 50 mg b.i.d., Synthroid 88 mcg daily, metoprolol succinate, Toprol-XL 50 mg daily, Tricor 145 mg daily, Zaroxolyn 5 mg daily. We will follow with you. Isabella Connors MD
[2016-11-08] MEDS: Insulin Detemir 100 units/ml Vial (Levemir) SC SCH (22:21)
[2016-11-09 07:24] LABS: HEMATOCRIT 28.4 % (42.0-52.0); MEAN CORPUSCULAR HEMOGLOBIN 32.9 pg (25.0-35.0); MEAN PLATELET VOLUME 11.9 fl (7.0-11.0); RED CELL DISTRIBUTION WIDTH 15.8 % (11.5-14.5); WHITE BLOOD COUNT 5.8 10^3/ul (4.5-11.0)
[2016-11-09] MEDS: Insulin Reg-HIGH-Coverage SC SCH ×2 (08:49→12:55)
[2016-11-09] MEDS: Levothyroxine 88 MCG TAB PO SCH (08:49)
[2016-11-09] MEDS: Pantoprazole 40 mg EC Tab PO SCH (08:49)
[2016-11-09] MEDS: Metoprolol Succinate 50 mg XL Tab PO SCH (08:51)
[2016-11-09 09:46] LABS: BILIRUBIN,TOTAL 1.6 mg/dL (0.2-1.3); CALCIUM 9.4 mg/dL (8.4-10.5); PHOSPHOROUS 4.8 mg/dL (2.5-4.5); POTASSIUM 3.9 mmol/L (3.6-5.0); TOTAL PROTEIN 7.3 g/dL (5.8-8.3)
[2016-11-09] MEDS ORDERED: Darbepoetin Alfa 60 mcg/ml Inj SC ONE (10:00)
[2016-11-09] MEDS: Cilostazol 50 mg Tab UD PO SCH (10:55)
[2016-11-09 11:27] VITALS: BP 110/54; PULSE 67; RESP 16; TEMP 98
[2016-11-09] MEDS: Nystatin 100,000 Units/gm Topical Pow(15 gm) TOP SCH (12:20)
--- NOTE | 2016-11-09 14:28 | PN ---
DATE: SUBJECTIVE: The patient is currently seen sitting up in bed. Family is at bedside. The patient is continued to diurese. His weight this morning is down to 230.4 pounds, very close to his outpatient baseline weight in the upper 220 range. The patient remains in negative fluid balance. His BUN and creatinine have increased with successful diuresis. He has no uremic symptoms. MEDICATIONS: Medication list reviewed. The patient is currently on amiodarone, DuoNeb, Ecotrin, insulin, Lasix, Neurontin, Norvasc, nystatin, Pletal, Protonix, Synthroid, Toprol, TriCor, Tylenol and Zaroxolyn. OBJECTIVE: INTAKE/OUTPUT: Intake 840 mL and output 3175. Weight today again is 230.4 pounds. If accurate, this weight is down 28 pounds from admission. VITAL SIGNS: Blood pressure 106/56, pulse 58, respiratory rate 20 with a temperature of 98.4. HEENT: Shows him to be normocephalic and atraumatic. Conjunctivae are pale. Sclerae nonicteric. NECK: Supple. No neck vein distention. CHEST: Clear to auscultation and percussion. No rales, no rhonchi, no wheezing. CARDIOVASCULAR: Regular rate and rhythm without audible murmurs, rubs or gallops. ABDOMEN: Soft. Bowel sounds are normal. No rebound, no guarding and no masses. EXTREMITIES: Showed no lower extremity edema. No thigh edema. No cyanosis or clubbing. LABORATORY DATA AND IMAGING: Labs today, white blood cell count on CBC is 5.8, hemoglobin 10.5, stable with a platelet count of 123,000. Chemistries showed normal electrolytes. BUN 65 with a creatinine of 4.9. Glucose is 155. Calcium is 9.4 with a phosphorus of 4.8 and a magnesium level of 2.0. Bilirubin 1.6, liver enzymes are normal otherwise. Albumin is 3.6. PTH and vitamin D level are pending. ASSESSMENT: 1. Acute renal failure superimposed on chronic kidney disease stage III. The patient has a baseline creatinine in the low 3 range, his current creatinine is now 4.9. The patient's baseline BUN is in the 30-40 range. Current BUN is 65. The patient has been diuresed successfully. He is no longer hypervolemic. Edema has resolved. No evidence clinically for congestive heart failure. No choice, but put the diuretics on hold. I have explained the patient and his family that use of diuretics is a balancing act. Too dry would make him too prerenal; too wet would make him symptomatic from edema and congestive heart failure. For right now, I will place Zaroxolyn on hold and hold IV Lasix. 2. History of chronic kidney disease, stage III, baseline creatinine is in the low 3 range. 3. History of diabetic nephropathy, secondary to longstanding insulin-dependent diabetes mellitus, currently stable. Glucose control is excellent.. 4. History of anemia. The patient received Aranesp. He is on oral iron supplements. Try to keep hemoglobin in the 10-11 range. 5. History of atrial fibrillation, status post ablation therapy, currently appears to be in normal sinus rhythm with first-degree atrioventricular block, currently stable. 6. History of hypothyroidism, currently stable, clinically and biochemically euthyroid. 7. History of nephrolithiasis with stent placement, past history of obstructive uropathy. 8. History of insulin-dependent diabetes mellitus. Continue current regimen with long-acting and short-acting insulin. 9. Mild hyperphosphatemia, which is likely secondary to secondary hyperparathyroidism in the setting of acute renal failure superimposed on chronic kidney disease stage III. PTH and vitamin D level are pending. I will start the patient on binder therapy. PLAN: 1. Discussed with the patient and his family the need to place diuretics on hold. 2. Continue to monitor I's and O's and daily weights. 3. In all likelihood, the patient will be discharged home on low-dose oral Lasix therapy if his BUN and creatinine far closer to his baseline range. 4. The patient is a candidate for outpatient Procrit therapy if hemoglobin remains below 10. 5. Continue to monitor the patient on telemetry. Manpreet Dalton MD
--- NOTE | 2016-11-09 17:54 | PN ---
REASON FOR CONSULTATION: Cardiac evaluation, admitted with shortness of breath and swelling in the leg. SUBJECTIVE: Denies any chest pain, denies shortness of breath, denies any palpitation. OBJECTIVE: GENERAL: The patient sitting at the bedside, playing with telephone and texting, not in apparent distress. VITAL SIGNS: Temperature afebrile, heart rate 76, blood pressure 106/56. HEENT: PERRLA. Extraocular muscles intact. NECK: Supple. No carotid bruit. No thyromegaly. CHEST: Clear to auscultation. HEART: S1 and S2 regular. ABDOMEN: Soft. EXTREMITIES: Clubbing and cyanosis negative. LABORATORY DATA: Blood workup as follows: WBC 5.8, hemoglobin 10.5, hematocrit 28.4, platelet count 123. Chemistry shows sodium 139, potassium 3.9, chloride 99, carbon dioxide 25, anion gap of 19, BUN 65, creatinine 4.9. IMPRESSION: A 71-year-old male with past medical history significant for diabetes, hypertension, hyperlipidemia, history of kidney stone, history of paroxysmal atrial fibrillation, status post radiofrequency ablation, now the patient in normal sinus, admitted with acute on chronic renal insufficiency, now renal function is worsening, stage IV chronic kidney disease. No evidence of acute myocardial infarction. RECOMMENDATION: Continue amlodipine, avoid nephrotoxic medication. Continue amiodarone to maintain the normal sinus. Continue baby aspirin. Monitor renal function. Continue Synthroid for hypothyroidism. Continue metoprolol. Repeat the lab in the morning. We will follow electrolytes. We will discontinue telemetry. EKG shows normal sinus rhythm first-degree AV block, no arrhythmia noted during telemetry. Thank you, for providing us the opportunity in taking care of the patient Ciro Morales. Isabella Mcgregor MD
--- NOTE | 2016-11-25 05:29 | DS ---
HISTORY OF PRESENT ILLNESS: This is a 71-year-old man, new patient to me, but known to the office for several years as he sees my partner Dr. Jim Reyes, on a regular basis for diabetes and hypertension. 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 He said he had a thallium stress test just weeks before coming to the hospital that showed no ischemia and normal ejection fraction. He was also being followed by renal healthcare market consultant for renal insufficiency. PAST MEDICAL HISTORY: As mentioned above is significant for hypertension, diabetes, renal insufficiency. He further says that he in just 3 months ago had both venous and arterial Doppler of lower extremity by Dr. Emery Dia. He denies excessive salt intake or change in the diet. He denies chest pain or shortness of breath, but had volume overload. He was seen and admitted through the emergency room with anasarca of volume overload, diabetes etc. COURSE OF HOSPITAL STAY: The patient was admitted and consultation was requested by Dr. Connors, his consulting unit tender, who knows him as well as Dr. Dalton, renal healthcare market consultant and followup him on a outpatient basis. He was aggressively diuresed and over the course of the following 3 days that would be November 06, , and he diuresed nicely. I came to see him on Tuesday and found that he had been discharged to home via conversations with the nurse practitioner and reportedly other consultants and physicians involved and or based on the notes in the chart. He was instructed to followup in the office soon thereafter and followup with renal healthcare market consultant within a few days. FINAL DISCHARGE DIAGNOSES: 1. Anasarca, volume overload due to renal failure. 2. Hypertension. 3. Diabetes. 4. Diabetic neuropathy. 5. Chronic kidney disease. 6. History of cardiac arrhythmia, atrial fibrillation, now on amiodarone. 7. Hypothyroidism. 8. Gastroesophageal reflux and peptic ulcer disease. Berto Reyes MD
== END 2016-11-09 14:36 | disposition home or self-care (01) | DRG 292 ==
LOC: ED 21:07 → ERH 11-06 00:53 → 2RSO 11-06 02:04
PROVIDERS: ADMIT Internal Medicine; ATTEND Internal Medicine
DX: I13.0 Hypertensive heart and chronic kidney disease with heart failure and stage 1 through stage 4 chronic kidney disease, or unspecified chronic kidney disease (principal); N17.9 Acute kidney failure, unspecified; E10.40 Type 1 diabetes mellitus with diabetic neuropathy, unspecified; E10.21 Type 1 diabetes mellitus with diabetic nephropathy; N25.81 Secondary hyperparathyroidism of renal origin; I50.9 Heart failure, unspecified; I48.0 Paroxysmal atrial fibrillation; N18.3 Chronic kidney disease, stage 3 (moderate); N20.0 Calculus of kidney; E03.9 Hypothyroidism, unspecified; E78.5 Hyperlipidemia, unspecified; J61 Pneumoconiosis due to asbestos and other mineral fibers; I44.0 Atrioventricular block, first degree; D63.1 Anemia in chronic kidney disease; E83.39 Other disorders of phosphorus metabolism; F17.290 Nicotine dependence, other tobacco product, uncomplicated; M17.9 Osteoarthritis of knee, unspecified; Z96.651 Presence of right artificial knee joint; R79.1 Abnormal coagulation profile; Z79.82 Long term (current) use of aspirin; Z79.4 Long term (current) use of insulin

== ENCOUNTER 2016-11-10 07:06 | Inpatient (IN) | payer MEDICARE, OTHER ==
[2016-11-10 07:24] VITALS: BMI 32.1
--- NOTE | 2016-11-10 07:30 | ED PDOC ---
Arrival/HPI - General Time Seen by Provider: 11/10/16 07:12 Historian: Patient, Spouse - History of Present Illness Narrative History of Present Illness (Text): 11/10/16 07:12 A 71 year old male, whose past medical history includes hypertension, atrial fibrillation, and asbestosis, was brought in by EMS, along with , and presents to the emergency department complaining of AMS since this morning. Patient's reports patient was discharged yesterday for congestive heart failure and was stable. Patient was brought home and went to bed at 21:30. This morning when tried to have patient get up from bed to be measured on a scale, patient began to yell and appeared shaky. Patient went to go the bathroom at home and found that he had urinated on his bed. Afterwards, patient became combative and started to drool. Patient states not feeling well and denies of any pain or any other complaints. Also, mentions he becomes irritable around her, but is stable around other people. PMD: Dr. Reyes Time/Duration: Other (morning today) Symptom Onset: Sudden Symptom Course: Unchanged Context: Home Past Medical History - Provider Review Nursing Documentation Reviewed: Yes - Cardiac Hx Atrial Fibrillation: Yes Hx Hypertension: Yes - Pulmonary Hx Respiratory Disorders: Yes (asbestosis) - Neurological Hx Paralysis: No - HEENT Hx Macular Degeneration: Yes - Renal Hx Renal Disorder: No Hx Kidney Stones: Yes (several times) - Endocrine/Metabolic Hx Diabetes Mellitus Type 2: Yes Hx Hypothyroidism: Yes - Hematological/Oncological Hx Blood Transfusions: No Hx Blood Transfusion Reaction: No - Integumentary Hx Dermatological Disorder: No Other/Comment: ble brown skin discolorations - Musculoskeletal/Rheumatological Hx Musculoskeletal Disorders: Yes - Gastrointestinal Hx Gastrointestinal Disorders: Yes (colon polyps) - Genitourinary/Gynecological Other/Comment: kidney stones - Psychiatric Hx Emotional Abuse: No Hx Physical Abuse: No Hx Substance Use: No - Surgical History Hx Cholecystectomy: Yes Other/Comment: hernia repair. bilateral knee surgery - Anesthesia Hx Anesthesia Reactions: No Hx Malignant Hyperthermia: No - Suicidal Assessment Feels Threatened In Home Enviroment: No Family/Social History - Physician Review Nursing Documentation Reviewed: Yes Family/Social History: Other (nc) Smoking Status: Former Smoker Hx Alcohol Use: No (SOCIALLY) Hx Substance Use: No Allergies/Home Meds Allergies/Adverse Reactions: Allergies No Known Allergies Allergy (Verified 11/10/16 08:06) Home Medications: Home Meds Medication Instructions Recorded Confirmed Cholecalciferol (Vitamin D3) 5,000 iu PO DAILY 10/08/14 11/10/16 [Vitamin D3] Aspirin [Ecotrin] 81 mg PO DAILY 04/30/15 11/10/16 Insulin Aspart Prot/Insuln Asp 25 units SQ BID 04/30/15 11/10/16 [Novolog Mix 70-30 Vial] Levothyroxine Sodium [Levoxyl] 88 mcg PO QAM 04/30/15 11/10/16 Amiodarone [Cordarone] 200 mg PO QAM 05/12/15 11/10/16 Fenofibrate [Tricor] 134 mg PO DAILY 05/12/15 11/10/16 Metoprolol Succinate [Toprol XL] 50 mg PO QAM 05/12/15 11/10/16 Liraglutide [Victoza 3-Anuel] 1.8 mg SQ DAILY 10/22/16 11/10/16 Pantoprazole [Protonix EC Tab] 40 mg PO DAILY 10/22/16 11/10/16 amLODIPine [Norvasc] 5 mg PO BID 10/22/16 11/10/16 Cilostazol 50 mg PO BID 11/06/16 11/10/16 Gabapentin [Neurontin] 300 mg PO BID 11/06/16 11/10/16 Review of Systems - Review of Systems Systems not reviewed;Unavailable: Altered Mental Status Physical Exam Vital Signs Reviewed: Yes Vital Signs Temp Pulse Resp BP Pulse Ox 11/10/16 11:24 62 16 122/55 L 97 11/10/16 07:24 97.8 F 62 21 145/63 100 Appearance: Positive for: Comfortable Pain Distress: None Mental Status: Positive for: Confused - Systems Exam Head: Present: Atraumatic Pupils: Present: PERRL Mouth: Present: Moist Mucous Membranes Nose (Internal): No: Epistaxis Neck: Present: Normal Range of Motion Respiratory/Chest: Present: Clear to Auscultation. No: Respiratory Distress, Accessory Muscle Use Cardiovascular: Present: Regular Rate and Rhythm, Murmurs Abdomen: No: Tenderness, Distention Upper Extremity: Present: NORMAL PULSES Lower Extremity: Present: Edema (trace) Neurological: Present: Motor Func Grossly Intact, Normal Sensory Function, Other (myoclonic jerks. no focal deficits.). No: GCS=15 Skin: Present: Warm, Dry Psychiatric: Present: Alert. No: Oriented x 3 Medical Decision Making ED Course and Treatment: ecg- junctional rhythm 62, nonspecific IVCD 11/10/16 08:07 Chest X-ray shows bilateral patchy opacities, improved from prior in 11/05/2016 11/10/2016 09:[address] FINDINGS: HEMORRHAGE: No intracranial hemorrhage. BRAIN: No mass effect or edema. No atrophy or chronic microvascular ischemic changes. VENTRICLES: Unremarkable. No hydrocephalus. CALVARIUM: Unremarkable. PARANASAL SINUSES: Unremarkable as visualized. No significant inflammatory changes. MASTOID AIR CELLS: Unremarkable as visualized. No inflammatory changes. OTHER FINDINGS: None. IMPRESSION: Normal CT of the Head. Dictator : Jim Youssef MD - Lab Interpretations Lab Results: 11/10/16 07:45 11/10/16 07:45 Lab Results 11/10/16 09:10: pO2 48, VBG pH 7.49 H, VBG pCO2 37.0 L, VBG HCO3 28.2 H, VBG Total CO2 29.3 H, VBG O2 Sat (Calc) 90.4 H, VBG Base Excess 4.6 H, VBG Potassium 3.7, Glucose 135 H, Lactate 1.4, FiO2 21.0, Sodium 138.0, Chloride 103.0, Venous Blood Potassium 3.7 11/10/16 07:45: Alcohol, Quantitative < 10 11/10/16 07:45: Ammonia 37 H 11/10/16 07:45: WBC 6.1, RBC 3.09 L, Hgb 10.4 L, Hct 27.5 L, MCV 89.0, MCH 33.7 , MCHC 37.8 H, RDW 15.9 H, Plt Count 127, MPV 12.5 H, Gran % 69.6 H, Lymph % ( Auto) 16.6 L, [place] % (Auto) 11.2 H, Eos % (Auto) 2.1, Baso % (Auto) 0.5, Gran # 4.24, Lymph # 1.0 L, [place] # 0.7 H, Eos # 0.1, Baso # 0.03 11/10/16 07:45: Sodium 138, Potassium 3.9, Chloride 99, Carbon Dioxide 26, Anion Gap 17, BUN 70 H, Creatinine 5.0 H, Est GFR ( Amer) 14, Est GFR ( Non-Af Amer) 11, Random Glucose 132 H, Calcium 9.4, Total Bilirubin 1.8 H, AST 53, ALT 45, Alkaline Phosphatase 117, Troponin I 0.03 D, NT-Pro-B Natriuret Pep 1310 H, Total Protein 7.5, Albumin 3.8, Globulin 3.8, Albumin/Globulin Ratio 1.0 L 11/10/16 07:35: POC Glucose (mg/dL) 117 H I have reviewed the lab results: Yes - RAD Interpretation Radiology Orders: 11/10/16 07:30 HEAD W/O CONTRAST [CT] Stat 11/10/16 07:31 CHEST PORTABLE [RAD] Stat - Medication Orders Current Medication Orders: Amiodarone HCl (Cordarone) 200 mg PO QAM [facility] Amlodipine Besylate (Norvasc) 5 mg PO BID [facility] Aspirin (Ecotrin) 81 mg PO DAILY [facility] Calcium Acetate (Phoslo) 667 mg PO WM [facility] Cholecalciferol (Vitamin D) 5,000 iu PO DAILY [facility] Cilostazol (Pletal) 50 mg PO BID [facility] Fenofibrate (Tricor) 145 mg PO DAILY [facility] Gabapentin (Neurontin) 300 mg PO BID [facility] PRN Reason: Protocol Insulin Lispro Protam/Lispro Human (Humalog Mix 75/25) 25 units SC BID [facility] Levothyroxine Sodium (Synthroid) 88 mcg PO QAM [facility] Metoprolol Succinate (Toprol Xl) 50 mg PO QAM [facility] Liraglutide [Victoza 3-Anuel] 1.8 Mg ( Home Med) 1.8 mg SQ DAILY [facility] Pantoprazole Sodium (Protonix Ec Tab) 40 mg PO DAILY [facility] Discontinued Medications Sodium Chloride (Sodium Chloride 0.9%) 500 mls @ 999 mls/hr IV .Q31M STA Stop: 11/10/16 08:55 Last Admin: 11/10/16 08:55 Dose: 999 mls/hr - Scribe Statement The provider has reviewed the documentation as recorded by the Serjio Marques Provider Scribe Attestation: All medical record entries made by the Scribe were at my direction and personally dictated by me. I have reviewed the chart and agree that the record accurately reflects my personal performance of the history, physical exam, medical decision making, and the department course for this patient. I have also personally directed, reviewed, and agree with the discharge instructions and disposition. Disposition/Present on Arrival - Present on Arrival Any Indicators Present on Arrival: No History of DVT/PE: No History of Uncontrolled Diabetes: No Urinary Catheter: No History Surgical Site Infection Following: None - Disposition Have Diagnosis and Disposition been Completed?: Yes Diagnosis: Metabolic encephalopathy Disposition: HOSPITALIZED Disposition Time: 10:08 Condition: GUARDED
[2016-11-10 08:05] LABS: BASO # 0.03 K/mm3 (0.0-2.0); BASO % 0.5 % (0.0-3.0); EOS # 0.1 (0.0-0.7); EOS % 2.1 % (1.5-5.0); GRAN # 4.24 (1.4-6.5); GRAN % 69.6 % (50.0-68.0); HEMATOCRIT 27.5 % (42.0-52.0); LYMPH % 16.6 % (22.0-35.0); MEAN CORPUSCULAR HEMOGLOBIN 33.7 pg (25.0-35.0); MEAN CORPUSCULAR HGB CONC 37.8 g/dl (31.0-37.0); MEAN PLATELET VOLUME 12.5 fl (7.0-11.0); MONO # 0.7 (0.1-0.6); MONO % 11.2 % (1.0-6.0); RED CELL DISTRIBUTION WIDTH 15.9 % (11.5-14.5); WHITE BLOOD COUNT 6.1 10^3/ul (4.5-11.0)
[2016-11-10 08:11] LABS: BILIRUBIN,TOTAL 1.8 mg/dL (0.2-1.3); CALCIUM 9.4 mg/dL (8.4-10.5); POTASSIUM 3.9 mmol/L (3.6-5.0); TOTAL PROTEIN 7.5 g/dL (5.8-8.3)
[2016-11-10 08:22] LABS: TROPONIN I 0.03 ng/mL
[2016-11-10] MEDS ORDERED: Sodium Chloride 0.9% 500 ML IV STA (08:25)
--- NOTE | 2016-11-10 08:42 | RAD ---
HISTORY: ams COMPARISON: Portable chest 11/05/2016 FINDINGS: LUNGS: No definitive active pulmonary disease. PLEURA: No significant pleural effusion identified, no pneumothorax apparent. Multifocal pleural plaques are again seen at the left and right chest. CARDIOVASCULAR: Cardiac silhouette appears stable. There is no pulmonary vascular derangement appreciated. OSSEOUS STRUCTURES: No significant abnormalities. VISUALIZED UPPER ABDOMEN: Normal. OTHER FINDINGS: None. IMPRESSION: No definitive acute cardiopulmonary disease appreciated. Multifocal calcified pleural plaques again seen bilaterally. No significant interval change compared to 11/05/2016.
[2016-11-10 09:27] LABS: VENOUS BLOOD GAS BASE EXCESS 4.6 mmol/L (0.0-2.0); VENOUS BLOOD PH 7.49 (7.32-7.43)
--- NOTE | 2016-11-10 09:42 | CT ---
PROCEDURE: CT HEAD WITHOUT CONTRAST. HISTORY: ams COMPARISON: None available. TECHNIQUE: Axial computed tomography images were obtained through the head/brain without intravenous contrast. Radiation dose: Total exam DLP = 789 mGy-cm. This CT exam was performed using one or more of the following dose reduction techniques: Automated exposure control, adjustment of the mA and/or kV according to patient size, and/or use of iterative reconstruction technique. FINDINGS: HEMORRHAGE: No intracranial hemorrhage. BRAIN: No mass effect or edema. No atrophy or chronic microvascular ischemic changes. VENTRICLES: Unremarkable. No hydrocephalus. CALVARIUM: Unremarkable. PARANASAL SINUSES: Unremarkable as visualized. No significant inflammatory changes. MASTOID AIR CELLS: Unremarkable as visualized. No inflammatory changes. OTHER FINDINGS: None. IMPRESSION: Normal CT of the Head.
[2016-11-10 10:49] LABS: URINE BILIRUBIN NEGATIVE (NEGATIVE); URINE BLOOD TRACE-INTACT (NEGATIVE); URINE GLUCOSE (UA) NEGATIVE (NEGATIVE); URINE KETONE NEGATIVE (NEGATIVE); URINE LEUKOCYTE ESTERASE NEGATIVE Leu/uL (NEGATIVE); URINE PROTEIN TRACE mg/dL (<30 mg/dL)
[2016-11-10 10:50] LABS: URINE APPEARANCE CLEAR (CLEAR); URINE COLOR YELLOW (YELLOW)
[2016-11-10 11:04] LABS: URINE RBC NEGATIVE /hpf (0-2); URINE WBC NEGATIVE /hpf (0-6)
--- NOTE | 2016-11-10 12:29 | CARD ---
APPROVED REPORT EKG Measurement Heart [id number] <Conclusion> Sinus rhythm with first degree AV block Nonspecific intraventricular conduction delay Borderline ECG
[2016-11-10] MEDS ORDERED: LIRAGLUTIDE 1.8 MG SQ SCH ×2 (12:45→20:12)
[2016-11-10] MEDS: Pantoprazole 40 mg EC Tab PO SCH (13:34)
[2016-11-10 13:38] LABS: URINE BILIRUBIN NEGATIVE (NEGATIVE); URINE BLOOD TRACE-INTACT (NEGATIVE); URINE GLUCOSE (UA) NEGATIVE (NEGATIVE); URINE KETONE NEGATIVE (NEGATIVE); URINE LEUKOCYTE ESTERASE NEGATIVE Leu/uL (NEGATIVE); URINE PROTEIN TRACE mg/dL (<30 mg/dL)
[2016-11-10 13:40] LABS: URINE APPEARANCE SL CLOUDY (CLEAR); URINE COLOR YELLOW (YELLOW)
[2016-11-10 13:51] LABS: URINE RBC NEGATIVE /hpf (0-2); URINE WBC NEGATIVE /hpf (0-6)
[2016-11-10] MEDS: Cilostazol 50 mg Tab UD PO SCH (17:44)
--- NOTE | 2016-11-10 17:59 | CP.PCM.CON ---
<Lobo Varma - Last Filed: 11/10/16 17:35> History of Present Illness - History of Present Illness History of Present Illness: Neurology Consult Note for Dr. Shah Service Consulted for AMS HPI: This is a 71 yo M with PMH of AFib s/p ablation in 1998, HTN, CKD Stage IV, HLD, PVD, DM, and asbestosis who presents to [facility] with complaint of AMS since this morning. Patient's reports patient was discharged yesterday for suspected congestive heart failure and was mentating normally. Patient has no memory of events this AM, so HPI provided by ED documentation and family at bedside. As per , patient was difficult to arouse this AM, and when he was finally awakened, had acutely worsened gait, requiring assistance to the bathroom. When arriving at the bathroom, patient became combative, refusing to step on the scale, and then repeatedly needed to go to the bathroom. Patient became somnolent again, and did not recognize his son, so family returned him to bed, and called EMS. Later noted patient urinated in the bed and soaked it and himself. Family denies hematuria, shortness of breath, fevers/chills, diarrhea/melena/hematochezia. Patient remained confused in the ED, but at time of exam on the floors, patient is AAOx3 , and family at bedside report he is back to his mentation baseline. Only persisting symptom as per family is a bilateral UE tremor that appears to be an intention tremor. All other ROS in 12-point system review negative. EKG in the ED was supicious for borderline bradycardic afib, was read as Sinus at 63 bpm with 1st degree AV block, prolonged QTc (525), and non-specific intraventricular conduction delay. CT head obtained was negative for acute process. CXR was read as multifocal calicified pleural plaques previously seen without significant interval change from last scan. PMH: As above PSH: Cholecystectomy, Hernia Repair, L knee replacement FHx: Possible CO (Mother), Denies any hx of stroke in immediate family SHx: Denies tobacco, illicits/IVDA; Admits social alcohol, but denies any binging episode within last 4 weeks PMD: Dr. Reyes Review of Systems - Review of Systems All systems: reviewed and no additional remarkable complaints except (as per HPI ) Past Patient History - Past Social History Smoking Status: 2 cigars a - CARDIAC Hx Cardia Arrhythmia: Yes (afob) Hx Congestive Heart Failure: Yes (d/c'd [place] 11[place]09[place] [facility] [place]) Hx Hypertension: Yes Hx Peripheral Edema: Yes (ble +1 tight skin) Other/Comment: cardiac ablation - PULMONARY Hx Respiratory Disorders: Yes (asbestosis) - NEUROLOGICAL Hx Neurological Disorder: Yes (neuropathy "all over" pt stated) - HEENT Hx Macular Degeneration: Yes - RENAL Hx Chronic Kidney Disease: No Hx Kidney Stones: Yes (several times) - ENDOCRINE/METABOLIC Hx Diabetes Mellitus Type 2: Yes Hx Hypothyroidism: Yes - HEMATOLOGICAL/ONCOLOGICAL Hx Blood Disorders: No - INTEGUMENTARY Hx Dermatological Problems: No Other/Comment: ble brown skin discolorations, redness dry flakey skin multiple dry brown skin areas to lle, inner left thigh flat red itchy rash, right inner thigh smaller area of red flat itchy rash just noticed by this morning, 1cm round water blister to rle, red discolored dry flakey skin, skin tight to both lower extremities, buttocks hard dry red skin b/l 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 skin burning painful "especially" at night" as per pt no openings noted,b/l surgical scars both knees, left foot skin discolorations, pt being treated by dr farrah jerry for vascular issues last saw him 2 wks ago, [place] - MUSCULOSKELETAL/RHEUMATOLOGICAL Hx Falls: No - GASTROINTESTINAL Hx Gastrointestinal Disorders: Yes (colon polyps) - GENITOURINARY/GYNECOLOGICAL Other/Comment: kidney stones, stone center x5 - PSYCHIATRIC Hx Substance Use: No - SURGICAL HISTORY Hx Cholecystectomy: Yes Other/Comment: hernia repair, b/l total knee replacement 1996, 2001, left pigtail stent, r elbow sx - ANESTHESIA Hx Anesthesia Reactions: No Hx Malignant Hyperthermia: No Meds Allergies/Adverse Reactions: Allergies Allergy/AdvReac Type Severity Reaction Status Date / Time No Known Allergies Allergy Verified 11/10/16 08:06 - Medications Medications: Current Medications Amiodarone HCl (Cordarone) 200 mg PO QAM [facility] Amlodipine Besylate (Norvasc) 5 mg PO BID [facility] Aspirin (Ecotrin) 81 mg PO DAILY [facility] Last Admin: 11/10/16 13:45 Dose: 81 mg Calcium Acetate (Phoslo) 667 mg PO WM [facility] Cholecalciferol (Vitamin D) 5,000 iu PO DAILY [facility] Cilostazol (Pletal) 50 mg PO BID [facility] Fenofibrate (Tricor) 145 mg PO DAILY [facility] Gabapentin (Neurontin) 300 mg PO BID [facility] PRN Reason: Protocol Insulin Lispro Protam/Lispro Human (Humalog Mix 75/25) 25 units SC BID [facility] Levothyroxine Sodium (Synthroid) 88 mcg PO QAM [facility] Metoprolol Succinate (Toprol Xl) 50 mg PO QAM [facility] Liraglutide [Victoza 3-Anuel] 1.8 Mg ( Home Med) 1.8 mg SQ DAILY [facility] Pantoprazole Sodium (Protonix Ec Tab) 40 mg PO DAILY [facility] Last Admin: 11/10/16 13:34 Dose: 40 mg Thiamine HCl (Vitamin B1 Tab) 100 mg PO BID [facility] Physical Exam - Constitutional Appears: Well, Non-toxic, No Acute Distress - Head Exam Head Exam: ATRAUMATIC, NORMAL INSPECTION, NORMOCEPHALIC - Eye Exam Eye Exam: EOMI, Normal appearance, PERRL. absent: Conjunctival injection, Scleral icterus Pupil Exam: NORMAL ACCOMODATION, PERRL. absent: Fixed, Irregular, Unequal - ENT Exam ENT Exam: Mucous Membranes Moist - Neck Exam Neck exam: Positive for: Full Rom. Negative for: Lymphadenopathy, Tenderness, Thyromegaly - Respiratory Exam Respiratory Exam: Decreased Breath Sounds (mildly decreased breath sounds in all ayon), Clear to Auscultation Bilateral, NORMAL BREATHING PATTERN. absent : Accessory Muscle Use, Chest Wall Tenderness, Prolonged Expiratory Phase, Rales , Rhonchi, Wheezes - Cardiovascular Exam Cardiovascular Exam: Bradycardia, REGULAR RHYTHM, +S1, +S2. absent: Tachycardia , Clicks, Irregular Rhythm, JVD, +S4 - GI/Abdominal Exam GI & Abdominal Exam: Normal Bowel Sounds, Soft. absent: Diminished Bowel Sounds , Distended, Firm, Hyperactive Bowel Sounds, Hypoactive Bowel Sounds, Rigid, Tenderness - Extremities Exam Additional comments: Bilateral LE redness from ankles to mid rae, no abnormal warmth to palpation, and waxy skin at both sites, so more likely PVD than cellulitis Sensation grossly intact in all extremities, some tenderness to palpation at bilateral heels Faintly palpable bilateral dorsalis pedis pulses, +2 bilateral radial pulses - Back Exam Back exam: absent: CVA tenderness (L), CVA tenderness (R), rash noted - Neurological Exam Neurological exam: Alert, CN II-XII Intact, Oriented x3 Additional comments: Motor and sensory grossly intact +3/5 LE strength, +4/5 UE strength, +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 and foot flexion/ extension bilaterally - Psychiatric Exam Psychiatric exam: Normal Affect, Normal Mood - Skin Skin Exam: Dry, Intact, Normal Color (except as noted in Extremities exam), Warm Results - Vital Signs Recent Vital Signs: Last Vital Signs Temp 98.3 F 11/10/16 16:00 Pulse 64 11/10/16 16:00 Resp 18 11/10/16 16:00 BP 134/82 11/10/16 16:00 Pulse Ox 97 11/10/16 16:00 - Labs Result Diagrams: 11/10/16 07:45 11/10/16 07:45 Labs: Laboratory Results - last 24 hr 11/10/16 11/10/16 10:45 13:10 Urine Color Yellow Yellow Urine Appearance Clear Sl cloudy Urine pH 7.0 7.0 Ur Specific [place] 1.015 1.010 Urine Protein Trace H Trace H Urine Glucose (UA) Negative Negative Urine Ketones Negative Negative Urine Blood Trace-intact H Trace-intact H Urine Nitrate Negative Negative Urine Bilirubin Negative Negative Urine Urobilinogen 1.0 H 1.0 H Ur Leukocyte Esterase Negative Negative Urine RBC Negative Negative Urine WBC Negative Negative Assessment & Plan - Assessment and Plan (Free Text) Assessment: This is a 71 yo M with PMH of AFib s/p ablation in 1998, Provoked DVT , HTN, CKD Stage IV, HLD, PVD, DM, and asbestosis who presents to [facility] with complaint of AMS since this morning. AMS likely 2/2 metabolic encephalopathy from elevated ammonia in setting of underlying CKD appearing to acutely worsen (Cr 4.0 3 days prior, trending up to 5.0 on this admission). However, given risk of histories of paroxysmal afib, prior DVT, and vascular disease, need to rule out AMS 2/2 embolic stroke. Gait instability may be due to encephalopathy vs PVD vs underlying diabetic neuropathy. Plan: 1) MRI brain w/ & w/o contrast ordered, f/u 2) ASA 81mg PO daily 3) Thaimine 100mg PO BID 4) PT/OT due to gait instability. Case discussed and reviewed with attending, Dr. Lynne Shah. <Asad Shah - Last Filed: 11/10/16 18:22> Meds - Medications Medications: Current Medications Amiodarone HCl (Cordarone) 200 mg PO QAM [facility] Amlodipine Besylate (Norvasc) 5 mg PO BID [facility] Last Admin: 11/10/16 17:42 Dose: 5 mg Aspirin (Ecotrin) 81 mg PO DAILY [facility] Last Admin: 11/10/16 13:45 Dose: 81 mg Calcium Acetate (Phoslo) 667 mg PO WM [facility] Last Admin: 11/10/16 17:42 Dose: 667 mg Cholecalciferol (Vitamin D) 5,000 iu PO DAILY [facility] Cilostazol (Pletal) 50 mg PO BID [facility] Last Admin: 11/10/16 17:44 Dose: 50 mg Fenofibrate (Tricor) 145 mg PO DAILY [facility] Gabapentin (Neurontin) 300 mg PO BID [facility] PRN Reason: Protocol Last Admin: 11/10/16 17:42 Dose: 300 mg Insulin Lispro Protam/Lispro Human (Humalog Mix 75/25) 25 units SC BID [facility] Levothyroxine Sodium (Synthroid) 88 mcg PO QAM [facility] Metoprolol Succinate (Toprol Xl) 50 mg PO QAM [facility] Liraglutide [Victoza 3-Anuel] 1.8 Mg ( Home Med) 1.8 mg SQ DAILY [facility] Last Admin: 11/10/16 17:45 Dose: Not Given Pantoprazole Sodium (Protonix Ec Tab) 40 mg PO DAILY [facility] Last Admin: 11/10/16 13:34 Dose: 40 mg Thiamine HCl (Vitamin B1 Tab) 100 mg PO BID [facility] Last Admin: 11/10/16 17:49 Dose: 100 mg Results - Vital Signs Recent Vital Signs: Last Vital Signs Temp 98.3 F 11/10/16 16:00 Pulse 64 11/10/16 17:42 Resp 18 11/10/16 16:00 BP 134/82 11/10/16 17:42 Pulse Ox 97 11/10/16 16:00 - Labs Result Diagrams: 11/10/16 07:45 11/10/16 07:45 Labs: Laboratory Results - last 24 hr 11/10/16 11/10/16 10:45 13:10 Urine Color Yellow Yellow Urine Appearance Clear Sl cloudy Urine pH 7.0 7.0 Ur Specific [place] 1.015 1.010 Urine Protein Trace H Trace H Urine Glucose (UA) Negative Negative Urine Ketones Negative Negative Urine Blood Trace-intact H Trace-intact H Urine Nitrate Negative Negative Urine Bilirubin Negative Negative Urine Urobilinogen 1.0 H 1.0 H Ur Leukocyte Esterase Negative Negative Urine RBC Negative Negative Urine WBC Negative Negative Attending/Attestation - Attestation I have personally seen and examined this patient.: Yes I have fully participated in the care of the patient.: Yes I have reviewed all pertinent clinical information: Yes
[2016-11-10] MEDS ORDERED: TraMADol/Apap 37.5/325 mg Tab PO PRN (19:46)
[2016-11-11 08:30] VITALS: TEMP 97.7
[2016-11-11] MEDS: Insulin Lispro (humaLOG) MIX 75/25(10 ml) SC SCH ×2 (10:00→18:14)
[2016-11-11] MEDS: Levothyroxine 88 MCG TAB PO SCH (10:42)
[2016-11-11] MEDS: Pantoprazole 40 mg EC Tab PO SCH (10:42)
[2016-11-11] MEDS: Cilostazol 50 mg Tab UD PO SCH ×2 (10:42→17:33)
[2016-11-11] MEDS: Metoprolol Succinate 50 mg XL Tab PO SCH (10:42)
[2016-11-11] MEDS ORDERED: Sodium Chloride 0.45% 1,000 ML IV SCH (10:45)
--- NOTE | 2016-11-11 14:17 | CP.PCM.PN ---
<Lobo Varma - Last Filed: 11/11/16 14:12> Subjective - Date & Time of Evaluation Date of Evaluation: 11/11/16 Time of Evaluation: 09:20 - Subjective Subjective: Neurology Progress Note for Dr. Shah Service Patient seen and examined at bedside. Overnight and early this AM, patient became increasingly confused (as per patient and family at bedside), believing that staff and family were not being honest about his condition and hiding things from him. This AM, at time of exam, patient displays normal mentation, AAOx4 (self, location, year, president), logical thought processes, and denies any complaints, including chest pain, shortness of breath, dizziness, vision changes, or syncope. Still complains of some L heel pain, reports that this is baseline. Objective - Vital Signs/Intake and Output Vital Signs (last 24 hours): Temp Pulse Resp BP Pulse Ox 97.7 F 60 20 120/54 L 96 11/11/16 08:29 11/11/16 10:40 11/11/16 08:29 11/11/16 10:40 11/11/16 08:29 Intake and Output: 11/11/16 11/11/16 06:59 18:59 Intake Total 900 Output Total 1900 Balance -1000 - Medications Medications: Current Medications Amiodarone HCl (Cordarone) 200 mg PO QAM [facility] Last Admin: 11/11/16 10:41 Dose: 200 mg Amlodipine Besylate (Norvasc) 5 mg PO BID [facility] Last Admin: 11/11/16 10:40 Dose: 5 mg Aspirin (Ecotrin) 81 mg PO DAILY [facility] Last Admin: 11/11/16 10:41 Dose: 81 mg Calcium Acetate (Phoslo) 667 mg PO WM [facility] Last Admin: 11/11/16 08:42 Dose: 667 mg Cholecalciferol (Vitamin D) 5,000 iu PO DAILY [facility] Last Admin: 11/11/16 10:43 Dose: 5,000 iu Cilostazol (Pletal) 50 mg PO BID [facility] Last Admin: 11/11/16 10:42 Dose: 50 mg Fenofibrate (Tricor) 145 mg PO DAILY [facility] Last Admin: 11/11/16 10:42 Dose: 145 mg Sodium Chloride (Sodium Chloride 0.45%) 1,000 mls @ 60 mls/hr IV .[id number] [facility] Insulin Lispro Protam/Lispro Human (Humalog Mix 75/25) 25 units SC BID [facility] Lactulose (Enulose) 20 gm PO HS [facility] Levothyroxine Sodium (Synthroid) 88 mcg PO QAM [facility] Last Admin: 11/11/16 10:42 Dose: 88 mcg Metoprolol Succinate (Toprol Xl) 50 mg PO QAM [facility] Last Admin: 11/11/16 10:42 Dose: 50 mg Liraglutide [Victoza 3-Anuel] 1.8 Mg ( Home Med) 1.8 mg SQ DAILY [facility] Pantoprazole Sodium (Protonix Ec Tab) 40 mg PO DAILY [facility] Last Admin: 11/11/16 10:42 Dose: 40 mg Thiamine HCl (Vitamin B1 Tab) 100 mg PO BID [facility] Last Admin: 11/11/16 10:43 Dose: 100 mg Tramadol/Acetaminophen (Ultracet 37.5/325 Mg) 2 tab PO Q12H PRN PRN Reason: Headache Stop: 11/14/16 19:47 Last Admin: 11/10/16 23:22 Dose: 2 tab - Additional Findings Additional findings: - Constitutional Appears: Well, Non-toxic, No Acute Distress - Head Exam Head Exam: ATRAUMATIC, NORMAL INSPECTION, NORMOCEPHALIC - Eye Exam Eye Exam: EOMI, Normal appearance, PERRL. absent: Conjunctival injection, Scleral icterus Pupil Exam: NORMAL ACCOMODATION, PERRL. absent: Fixed, Irregular, Unequal - ENT Exam ENT Exam: Mucous Membranes Moist - Neck Exam Neck exam: Positive for: Full Rom. Negative for: Lymphadenopathy, Tenderness, Thyromegaly - Respiratory Exam Respiratory Exam: Decreased Breath Sounds (mildly decreased breath sounds in all ayon), Clear to Auscultation Bilateral, NORMAL BREATHING PATTERN. absent : Accessory Muscle Use, Chest Wall Tenderness, Prolonged Expiratory Phase, Rales , Rhonchi, Wheezes - Cardiovascular Exam Cardiovascular Exam: Bradycardia, Irregularly Irregular, +S1, +S2. absent: Tachycardia, Clicks, RRR, JVD, +S4 - GI/Abdominal Exam GI & Abdominal Exam: Normal Bowel Sounds, Soft. absent: Diminished Bowel Sounds , Distended, Firm, Hyperactive Bowel Sounds, Hypoactive Bowel Sounds, Rigid, Tenderness - Extremities Exam Bilateral LE redness from ankles to mid rae, no abnormal warmth to palpation, and waxy skin at both sites, no change in size/location of erythema & waxy skin Sensation grossly intact in all extremities, some tenderness to palpation at bilateral heels Faintly palpable bilateral dorsalis pedis pulses, +2 bilateral radial pulses - Back Exam Back exam: absent: CVA tenderness (L), CVA tenderness (R), Rash - Neurological Exam Neurological exam: Alert, CN II-XII Intact, Oriented x3 Motor and sensory grossly intact +3/5 LE strength, +4/5 UE strength, +5/5 application systems engineer strength and foot flexion/ extension bilaterally - Psychiatric Exam Psychiatric exam: Normal Affect, Normal Mood - Skin Skin Exam: Dry, Intact, Normal Color (except as noted in Extremities exam), Warm Assessment and Plan - Assessment and Plan (Free Text) Assessment: This is a 71 yo M with PMH of AFib s/p ablation in 1998, Provoked DVT , HTN, CKD Stage IV, HLD, PVD, DM, and asbestosis who presents to [facility] with complaint of AMS since this morning. AMS likely 2/2 metabolic encephalopathy from elevated ammonia in setting of underlying CKD appearing to acutely worsen (Cr 4.0 3 days prior, trending up to 5.0 on this admission). However, given risk of histories of paroxysmal afib, prior DVT, and vascular disease, need to rule out AMS 2/2 embolic stroke. Gait instability may be due to encephalopathy vs PVD vs underlying diabetic neuropathy. Still pending MRI to rule out embolic CVA. Plan: 1) MRI brain w/o contrast ordered (no contrast due to renal fxn), pending 2) ASA 81mg PO daily 3) Thaimine 100mg PO BID 4) PT/OT due to gait instability. Case discussed and reviewed with attending, Dr. Lynne Shah. <Asad Shah - Last Filed: 11/11/16 14:24> Objective - Vital Signs/Intake and Output Vital Signs (last 24 hours): Temp Pulse Resp BP Pulse Ox 97.7 F 60 20 120/54 L 96 11/11/16 08:29 11/11/16 10:40 11/11/16 08:29 11/11/16 10:40 11/11/16 08:29 Intake and Output: 11/11/16 11/11/16 06:59 18:59 Intake Total 900 Output Total 1900 Balance -1000 - Medications Medications: Current Medications Amiodarone HCl (Cordarone) 200 mg PO QAM [facility] Last Admin: 11/11/16 10:41 Dose: 200 mg Amlodipine Besylate (Norvasc) 5 mg PO BID [facility] Last Admin: 11/11/16 10:40 Dose: 5 mg Aspirin (Ecotrin) 81 mg PO DAILY [facility] Last Admin: 11/11/16 10:41 Dose: 81 mg Calcium Acetate (Phoslo) 667 mg PO WM [facility] Last Admin: 11/11/16 08:42 Dose: 667 mg Cholecalciferol (Vitamin D) 5,000 iu PO DAILY [facility] Last Admin: 11/11/16 10:43 Dose: 5,000 iu Cilostazol (Pletal) 50 mg PO BID [facility] Last Admin: 11/11/16 10:42 Dose: 50 mg Fenofibrate (Tricor) 145 mg PO DAILY [facility] Last Admin: 11/11/16 10:42 Dose: 145 mg Sodium Chloride (Sodium Chloride 0.45%) 1,000 mls @ 60 mls/hr IV .[id number] [facility] Insulin Lispro Protam/Lispro Human (Humalog Mix 75/25) 25 units SC BID [facility] Lactulose (Enulose) 20 gm PO HS [facility] Levothyroxine Sodium (Synthroid) 88 mcg PO QAM [facility] Last Admin: 11/11/16 10:42 Dose: 88 mcg Metoprolol Succinate (Toprol Xl) 50 mg PO QAM [facility] Last Admin: 11/11/16 10:42 Dose: 50 mg Liraglutide [Victoza 3-Anuel] 1.8 Mg ( Home Med) 1.8 mg SQ DAILY [facility] Pantoprazole Sodium (Protonix Ec Tab) 40 mg PO DAILY [facility] Last Admin: 11/11/16 10:42 Dose: 40 mg Thiamine HCl (Vitamin B1 Tab) 100 mg PO BID [facility] Last Admin: 11/11/16 10:43 Dose: 100 mg Tramadol/Acetaminophen (Ultracet 37.5/325 Mg) 2 tab PO Q12H PRN PRN Reason: Headache Stop: 11/14/16 19:47 Last Admin: 11/10/16 23:22 Dose: 2 tab Attending/Attestation - Attestation I have personally seen and examined this patient.: Yes I have fully participated in the care of the patient.: Yes I have reviewed all pertinent clinical information, including history, physical exam and plan: Yes
[2016-11-11 18:19] LABS: BASO # 0.02 K/mm3 (0.0-2.0); BASO % 0.3 % (0.0-3.0); EOS # 0.1 (0.0-0.7); EOS % 1.1 % (1.5-5.0); GRAN # 4.81 (1.4-6.5); GRAN % 77.5 % (50.0-68.0); HEMATOCRIT 29.3 % (42.0-52.0); LYMPH # 0.8 (1.2-3.4); LYMPH % 12.4 % (22.0-35.0); MEAN CELL VOLUME 89.6 fl (80.0-105.0); MEAN CORPUSCULAR HEMOGLOBIN 33.3 pg (25.0-35.0); MEAN CORPUSCULAR HGB CONC 37.2 g/dl (31.0-37.0); MEAN PLATELET VOLUME 11.5 fl (7.0-11.0); MONO # 0.5 (0.1-0.6); MONO % 8.7 % (1.0-6.0); RED CELL DISTRIBUTION WIDTH 15.8 % (11.5-14.5); WHITE BLOOD COUNT 6.2 10^3/ul (4.5-11.0)
[2016-11-11 18:29] LABS: BILIRUBIN,TOTAL 1.8 mg/dL (0.2-1.3); CALCIUM 9.4 mg/dL (8.4-10.5); MAGNESIUM 2.3 mg/dL (1.7-2.2); PHOSPHOROUS 4.2 mg/dL (2.5-4.5); POTASSIUM 4.3 mmol/L (3.6-5.0); TOTAL PROTEIN 7.5 g/dL (5.8-8.3)
--- NOTE | 2016-11-11 18:31 | EEG ---
DATE: 11/11/2016 CONDITION OF THE RECORDING: Drowsy. DIAGNOSIS: Altered mental status. MEDICATIONS: Reviewed by nurse per reconciliation sheet. INTERPRETATION: This is a 16-channel international recording. Background activity of this tracing was composed of 6 to 7 cycles per second. There was small amount of beta activity of 16 to 20 cycles per second seen in this tracing. There was increased amount of theta activity of 5 to 7 cycles per second seen in this tracing. Drowsiness was characterized by mixed beta and theta activities. Sleep was characterized by vertex transient waves and sleep spindles and bilateral slowing. Photic stimulation showed no change in the tracing. No paroxysmal activity noted in this recording. CONCLUSION: This is an abnormal EEG due to presence of diffuse slowing throughout the recording consistent with bilateral cerebral dysfunction. Please clinically correlate. No evidence of any epileptiform activity. Asad Shah MD
--- NOTE | 2016-11-11 20:22 | US ---
PROCEDURE: Lower extremity IMTIAZ exam HISTORY: Peripheral vascular disease with ischemic pain. Diabetes. Smoker. PHYSICIAN(S): Emery Dia MD. FINDINGS: The exam is limited by calcified noncompressible vessels. The resting ABIs are reliable The brachial systolic pressures are symmetric. The high thigh pressures noncompressible. The high thigh PVR waveforms are normal and symmetric. The right calf PVR waveform is normal. The left calf PVR waveform is mildly blunted. The findings are consistent with left SFA occlusive disease The right ankle and metatarsal waveforms are mildly blunted. The left ankle and metatarsal waveforms are moderately blunted. This could represent subtle bilateral tibial disease IMPRESSION: 1. Limited study due to calcified vessels. 2. Left SFA occlusive disease. 3. Possible subtle bilateral tibial occlusive disease.
--- NOTE | 2016-11-11 21:35 | CON ---
DATE OF CONSULTATION: 11/11/2016 ADMITTING PROVIDER: Dr. Jim Reyes. REFERRING PROVIDER: Dr. Berto Reyes. REASON FOR CONSULTATION: Evaluation of a patient with a rising BUN and creatinine in the setting of previous diuretic therapy who presents with altered mental status and asterixis. HISTORY OF PRESENT ILLNESS: The patient is a pleasant 71-year-old white male, known to me from outpatient followup and from recent inpatient followup. The patient was admitted to the hospital earlier this week with a 20 to 25-pound fluid gain, edema, and CHF. He was successfully diuresed. His BUN and creatinine had elevated secondary to the diuretics. The patient was sent home off diuretics, told to increase p.o. fluid hydration. The patient was noted by his family to have asterixis, altered mental status. He was brought back to the hospital. He was noted to have a BUN of 70 with a creatinine of 5.0, and noted to have a mild elevation of his ammonia level at 37. The patient is currently seen in 3R. He appears to be comfortable. His weight is similar to his weight upon discharge, 230 pounds, down approximately 20 to 25 pounds with successful IV diuretic therapy. His baseline BUN is in the 30 to 40 range with a baseline creatinine in the low-to-mid 3 range. The patient has chronic kidney disease, stage III/IV. This is in the setting of diabetic nephropathy. We are asked to evaluate the patient for his asterixis, elevated BUN and creatinine, and to help with fluid administration given his previous hypervolumic state and his now more advanced renal failure. PAST MEDICAL HISTORY: Significant for that of chronic kidney disease stage III/IV, baseline creatinine in the low-to-mid range of 3 with baseline BUN in the 30 to 40 range. History of atrial fibrillation, status post ablation therapy. History of diabetic nephropathy secondary to longstanding IDDM, history of anemia secondary to chronic kidney disease. History of hypothyroidism, on thyroid replacement therapy, history of mild hyperphosphatemia with mild secondary hyperparathyroidism, history of nephrolithiasis. History of recent CHF and edema, status post recent aggressive diuretic therapy. No past history of liver disease. The patient had been a drinker in the past but now only drinks socially. MEDICATIONS: At home include that of Norvasc, Protonix, Toprol, Victoza, Levoxyl, insulin, Neurontin, TriCor, cilostazol, vitamin D, PhosLo, Ecotrin, and amiodarone. Current medications in hospital include that of Victoza, amiodarone, Ecotrin, insulin, Neurontin has been discontinued, Norvasc, PhosLo, Pletal, Protonix, Synthroid, Toprol, TriCor, Ultracet, vitamin B1, and vitamin D. ALLERGIES: The patient has no known allergies to medications. SOCIAL HISTORY: The patient has a supportive family. The patient does not smoke cigarettes. Positive occupational exposure to asbestos. History of alcohol use in the past but most recently, he is only a social drinker. FAMILY HISTORY: Mother of gastric cancer. Father of colon cancer. REVIEW OF SYSTEMS: GENERAL: The patient states that he has lost 20 to 25 pounds with the recent diuresis. Appetite has been stable, but he has been hospitalized over the last several days, so decreased appetite. HEENT: Denies any hearing or visual problems. PULMONARY: No shortness of breath at present. No history of COPD. History of pleural plaquing on his chest x-ray and chest scan secondary to asbestosis. No history of asthma. CARDIAC: History of atrial fibrillation, status post ablation therapy as noted above. GASTROINTESTINAL: No history of nausea, no vomiting, no diarrhea, no constipation, no abdominal pain. GENITOURINARY: History of advanced chronic kidney disease, stage III/IV. ENDOCRINE: History of diabetes with macrovascular and microvascular complications, history of secondary hyperparathyroidism. MUSCULOSKELETAL: No complaints. NEUROLOGIC: No past history of CVA, TIA, seizure, or syncope. HEME/ONC: History of anemia secondary to chronic kidney disease. PSYCHIATRIC: Negative. PHYSICAL EXAMINATION: GENERAL: The patient is currently seen in . The patient is sitting up in bed. He appears to be comfortable. He does have some mild jerkiness of his hands. VITAL SIGNS: Blood pressure 128/54, pulse 60, temperature 97.7, respiratory rate 20, pulse oximetry of 96%. HEENT: Shows him to be normocephalic, atraumatic. Conjunctivae are pink. Sclerae are anicteric. Pupils are equal and reactive to light and accommodation. Extraocular muscles are intact. Posterior pharynx is normal. NECK: Supple. No neck vein distention. No thyromegaly. No lymphadenopathy. No bruits. CHEST: Clear to auscultation and percussion. No rales, no rhonchi, no wheezing. CARDIOVASCULAR: Shows irregular rate and rhythm with 2 to 3/6 holosystolic murmur in the left lower sternal border. No S3,no S4, no rub. ABDOMEN: Soft. Bowel sounds are normal. No rebound, no guarding, no masses. No organomegaly noted. BACK: No CVAT, no swelling, no tenderness. EXTREMITIES: Show no lower extremity edema. No cyanosis or clubbing. Slightly diminished pulses in his lower extremity bilaterally. NEUROLOGIC: Shows him to have asterixis bilaterally. No gross focal motor or sensory deficits noted. LABORATORY DATA AND IMAGING: Admitting chest x-ray showed pleural plaques, no acute pulmonary disease. Admitting head CT was normal. Admitting EKG showed normal sinus rhythm and first-degree AV block. Renal ultrasound done on previous admission earlier this week showed left kidney stones, nonobstructive. No hydronephrosis with bilateral scarring in his kidneys consistent with chronic medical renal disease. Labs, CBC, white blood cell count 6.1, hemoglobin 10.4, and platelet count of 127,000. Chemistries today, sodium 138, potassium 3.9, chloride 99, CO2 of 26, BUN 70 with a creatinine of 5.0. When the patient left the hospital 2 days ago, his BUN was 55, his baseline BUN is in the upper 30 and lower 40 range. Creatinine 5.0. When the patient left the hospital, it was 4.3, baseline creatinine is in the low-to-mid 3 range. Glucose is 132. Calcium is 9.4, bilirubin 1.8, liver enzymes are normal. Ammonia level was noted to be high at 37. BNP is slightly elevated at 1310. Troponin is negative with 0.03. Albumin is 3.8. Urine showed trace protein. No white blood cells. No red blood cells. Toxicology screen for alcohol is negative. Microbiology, all cultures are pending at the time of dictation. ASSESSMENT: 1. Acute renal failure superimposed on chronic kidney disease stage III/IV in the setting of known diabetic nephropathy. The elevated BUN and creatinine were secondary to the use of diuretics during the previous admission. In all likelihood, oral intake has been down over the last 24 to 36 hours. So his BUN and creatinine have continued to drift higher. I see no choice but to start the patient on gentle intravenous fluid hydration. We again need to balance out the kidney disease with hypervolemia, congestive heart failure, and edema. The patient understands that he will be receiving intravenous fluid hydration. He may drink adequate amounts of fluid without fluid restriction. We will need to follow with labs on a daily basis. His baseline BUN is in the upper 30 and lower 40 range, the baseline creatinine in the low-to-mid 3 range. There is concern regarding him having some [id number] asterixis. Neurontin has been discontinued as this can cause asterixis in a patient with chronic kidney disease. Also noted is a mild elevation of his ammonia level. Perhaps, treatment with lactulose as per Gastroenterology client care consultant. Renal ultrasound done on previous admission showed no acute abnormalities. I would expect this BUN and creatinine to drift back to baseline levels with cautious intravenous fluid hydration. I did have a short discussion with the patient about the possible need to start thinking about dialysis should his BUN and creatinine remain elevated. 2. History of [id number] diabetes mellitus, now on insulin with diabetic nephropathy. The patient will continue present outpatient medication for his diabetes. He is on insulin plus Victoza. 3. Hypothyroidism. Continue thyroid replacement therapy. His TSH level from the previous admission was acceptable at 2.09. 4. History of mild secondary hyperparathyroidism. We will check his phosphorus levels. The patient will continue on Renal-guided binder therapy. 5. Past history of congestive heart failure and edema. Diuretics will be on hold and again, cautious intravenous fluid hydration. 6. History of anemia. The patient would be a candidate for Procrit and iron therapy should his hemoglobin drop below 10.4. 7. Past history of atrial fibrillation, status post ablation therapy. The patient appears to be in normal sinus rhythm with a first-degree atrioventricular block on his EKG. PLAN: 1. Discussed with the patient, patient's sister, the patient's family, and Dr. Reyes in detail. We will cautiously start IV fluid hydration. Goal is to try and lower his BUN and creatinine close to baseline range. 2. Continue to monitor accurate I's and O's and daily labs. 3. Hoping to see resolution of the asterixis with lowering of the ammonia level, lowering of the BUN and creatinine, and potentially uremic toxins, and discontinuation of Neurontin. 4. Neuro evaluation. Thank you for letting me partake and share in the care of our mutual patient. Manpreet Dalton MD
[2016-11-11] MEDS: LIRAGLUTIDE 1.8 MG SQ SCH (21:38)
--- NOTE | 2016-11-11 22:43 | HP ---
HISTORY OF PRESENT ILLNESS: The patient is a 71-year-old male who is brought to the emergency room with mental status changes. The patient was discharged from [facility] yesterday. At that time, he was admitted with volume overload, anasarca, shortness of breath and leg pains. He was treated and was originally planning to go to the transitional care unit; however, Nephrology decided that the patient was no longer in need of intravenous Lasix, and therefore, the patient was no longer qualified for our transitional care unit and was discharged to home. He was fine yesterday evening and overnight; however, this morning when he woke up, he was very aggressive, abusive verbally, and simply not himself, so he was brought to the emergency room. He was also confused and disoriented. PAST MEDICAL HISTORY: Positive for hypertension; diabetes; chronic renal insufficiency, for which he is followed by nephrology, Dr. Dalton; he is an insulin-dependant diabetic; and has some degree of peripheral vascular disease as per arterial Doppler studies from July 2016. SOCIAL HISTORY: He is a nonsmoker and nonalcoholic drinker. ALLERGIES: HE HAS NO KNOWN MEDICAL ALLERGIES. MEDICATIONS: Included amlodipine, pantoprazole, metoprolol, Victoza, Levoxyl, NovoLog 70/30 insulin, Neurontin, fenofibrate, cilostazol, vitamin D, aspirin, and amiodarone. REVIEW OF SYSTEMS: When seen, the patient is resting comfortably in bed. His family is at bedside. He is complaining of onset of mild left frontal headache. He does not recall the events from this morning. He does not recall being verbally abusive or belligerent this morning. PHYSICAL EXAMINATION: HEAD, EYES, EARS, NOSE AND THROAT: Unremarkable. NECK: Supple with no lymphadenopathy and no goiter. LUNGS: Distant, but clear to auscultation and percussion. CARDIAC: Heart sounds are regular. ABDOMEN: Soft and nontender. EXTREMITIES: Show +1 edema. They are tender to palpation. NEUROLOGIC: The patient is awake, alert and, oriented; however, he does not recall events surrounding his presentation to the emergency room. VITAL SIGNS: His blood pressure is 122/55 with a heart rate of 62, and he is afebrile. LABORATORY STUDIES: Show the white blood cell count to be 6.1, hemoglobin and hematocrit are 10.4 and 27.5, platelet count is 12.2. Sodium is 138, potassium 3.7, BUN is slightly elevated from discharge yesterday at 70 and creatinine is 5.0, which yesterday was 4.9. Nonfasting glucose is 132. DIAGNOSTIC DATA: CAT scan of the head done in the emergency room shows no acute changes. Chest x-ray shows no acute disease. EKG shows no acute changes. IMPRESSION: The patient is admitted. Consultation from Dr. Shah, the neurologist, as well as Dr. Dalton, the weather analyst, is requested. The patient will be reevaluated in the morning and will be followed closely. ADMITTING DIAGNOSES: 1. Mental status changes. 2. Metabolic encephalopathy. Jim Reyes MD
--- NOTE | 2016-11-11 23:11 | CP.PCM.PN ---
Subjective - Date & Time of Evaluation Date of Evaluation: 11/11/16 Time of Evaluation: 23:05 - Subjective Subjective: It was requested by nurse to order sliding scale insulin.FSBS is 335 mg %. Patient is on Novolog 70/30 27 units BID and 1.2 mg of Victoza. With this regime his glucose is under control as per . Has no complaints at this time. Medical record was reviewed. This 71 year old white male was admitted altered mental status. Has PMH of IDDM, Hypertension, chronic renal insufficiency, PVD. Objective - Vital Signs/Intake and Output Vital Signs (last 24 hours): Temp Pulse Resp BP Pulse Ox 97.7 F 62 18 120/60 99 11/11/16 16:00 11/11/16 17:32 11/11/16 16:00 11/11/16 17:32 11/11/16 16:00 Intake and Output: 11/11/16 11/12/16 18:59 06:59 Intake Total 300 240 Output Total 800 900 Balance -500 -660 - Medications Medications: Current Medications Amiodarone HCl (Cordarone) 200 mg PO QAM [facility] Last Admin: 11/11/16 10:41 Dose: 200 mg Amlodipine Besylate (Norvasc) 5 mg PO BID [facility] Last Admin: 11/11/16 17:32 Dose: 5 mg Aspirin (Ecotrin) 81 mg PO DAILY [facility] Last Admin: 11/11/16 10:41 Dose: 81 mg Calcium Acetate (Phoslo) 667 mg PO WM [facility] Last Admin: 11/11/16 17:33 Dose: 667 mg Cholecalciferol (Vitamin D) 5,000 iu PO DAILY [facility] Last Admin: 11/11/16 10:43 Dose: 5,000 iu Cilostazol (Pletal) 50 mg PO BID [facility] Last Admin: 11/11/16 17:33 Dose: 50 mg Fenofibrate (Tricor) 145 mg PO DAILY [facility] Last Admin: 11/11/16 10:42 Dose: 145 mg Sodium Chloride (Sodium Chloride 0.45%) 1,000 mls @ 60 mls/hr IV .[id number] [facility] Last Admin: 11/11/16 10:45 Dose: 60 mls/hr Insulin Lispro Protam/Lispro Human (Humalog Mix 75/25) 25 units SC BID [facility] Last Admin: 11/11/16 18:14 Dose: 25 units Lactulose (Enulose) 20 gm PO [facility] Levothyroxine Sodium (Synthroid) 88 mcg PO QAM [facility] Last Admin: 11/11/16 10:42 Dose: 88 mcg Metoprolol Succinate (Toprol Xl) 50 mg PO QAM [facility] Last Admin: 11/11/16 10:42 Dose: 50 mg Liraglutide [Victoza 3-Anuel] 1.8 Mg ( Home Med) 1.8 mg SQ 2100 [facility] Last Admin: 11/11/16 21:38 Dose: 1.8 mg Pantoprazole Sodium (Protonix Ec Tab) 40 mg PO DAILY [facility] Last Admin: 11/11/16 10:42 Dose: 40 mg Thiamine HCl (Vitamin B1 Tab) 100 mg PO BID [facility] Last Admin: 11/11/16 17:33 Dose: 100 mg Tramadol/Acetaminophen (Ultracet 37.5/325 Mg) 2 tab PO Q12H PRN PRN Reason: Headache Stop: 11/14/16 19:47 Last Admin: 11/10/16 23:22 Dose: 2 tab - Labs Labs: 11/11/16 18:14 11/11/16 18:14 - Constitutional Appears: Well, No Acute Distress - Head Exam Head Exam: ATRAUMATIC, NORMAL INSPECTION, NORMOCEPHALIC - Eye Exam Eye Exam: Normal appearance - ENT Exam ENT Exam: Normal External Ear Exam - Neck Exam Neck Exam: Normal Inspection - Respiratory Exam Respiratory Exam: NORMAL BREATHING PATTERN - Cardiovascular Exam Cardiovascular Exam: absent: JVD - GI/Abdominal Exam GI & Abdominal Exam: absent: Distended - Rectal Exam Rectal Exam: Deferred - Exam Additional comments: Deferred. - Extremities Exam Extremities Exam: Normal Inspection - Back Exam Back Exam: NORMAL INSPECTION - Neurological Exam Additional comments: Asleep. - Psychiatric Exam Additional comments: Asleep. - Skin Skin Exam: Normal Color - Additional Findings Additional findings: Spoke to who in sitting in chair next to him. Assessment and Plan - Assessment and Plan (Free Text) Assessment: Hyperglycemia. IDDM. HTN. Chronic renal insufficiency. PVD. Plan: Regular insulin sliding scale (Medium) ordered. Continue present management.
--- NOTE | 2016-11-12 00:53 | CON ---
DATE: 11/11/2016 LOCATION: The patient in room 376, bed 2. REASON FOR CONSULTATION: Altered mental status, hypertension, history of atrial fibrillation status post ablation; and renal failure. HISTORY OF PRESENT ILLNESS: The patient known to have paroxysmal atrial fibrillation for which he had ablation. Since ablation, he has been staying in sinus rhythm. The patient also known to have hypertension, renal dysfunction, diabetes mellitus, asbestosis of lungs, history of kidney stones and renal failure. The patient was recently in hospital for gaining lot of fluid and shortness of breath for which he was treated and sent home and according to family, the patient at home started having incontinence and he became very shaky and could not stand up and he also was inappropriate in his behavior. Also, having tremors and no history of chest pain, shortness of breath or palpitation. PAST MEDICAL HISTORY: Includes hypertension, paroxysmal atrial fibrillation status post ablation, renal dysfunction, diabetes mellitus, asbestosis of the lungs; kidney stone, most of them have passed, the patient still has 1 stone in one of the kidney, which is a large stone. PERSONAL HISTORY: He smokes 2 cigars a days, used to smoke 4 packs of cigarettes for 30 years. Denies drinking. ALLERGIES: THE PATIENT DOES NOT HAVE ANY ALLERGIES. REVIEW OF SYSTEMS: All the systems reviewed. Positive mentioned in the history, others are negative. MEDICATIONS: The patient's home medications include amlodipine 5 mg daily, Protonix 40 daily, metoprolol succinate, which is Toprol-XL 50 mg daily, Victoza 3-Anuel 1.8 mg subQ daily, Levoxyl 88 mcg p.o. daily, NovoLog insulin mix 70/30, 25 units b.i.d., Neurontin 300 mg b.i.d., TriCor 134 p.o. daily, cilostazol 50 mg b.i.d., PhosLo 667 mg p.o. Wednesdays and Mondays, aspirin 81 daily and amiodarone 200 mg p.o. daily. PHYSICAL EXAMINATION: VITAL SIGNS: Blood pressure 120/54, respirations 20, pulse 60 and temperature 97.7. HEAD: Normocephalic. EYES: Pupils normal. Conjunctivae slightly pale. NECK: JVP low. Carotids equal. THORAX: AP diameter normal. LUNGS: Clear. CARDIOVASCULAR: S1 and S2. ABDOMEN: Soft and nontender. No organomegaly. Bowel sounds normal. EXTREMITIES: No clubbing and no cyanosis. LABORATORY AND DIAGNOSTIC DATA: WBC 6.1, hemoglobin 10.4, hematocrit 27.5, platelets 127. Chemistry; sodium 138, potassium 3.9, BUN 70, creatinine 5.0. Random glucose 132. Ammonia level is 37, which is elevated slightly, normal is 5 to 33. Troponin 0.03, which is normal. Total protein and albumin normal. EKG showed regular sinus rhythm with prolonged AL, nonspecific ST-T changes. Chest x-ray; multifocal calcified pleural plaques seen bilaterally, no change from 11/05/2016. DIAGNOSES: Diabetes mellitus, asbestosis, hypertension, paroxysmal atrial fibrillation status post ablation, altered mental status, acute on chronic renal failure, anemia, high ammonia level. PLAN: The patient on IV fluid 0.45 saline 60 mL an hour, amiodarone 200 mg daily, aspirin 81 mg daily, lactulose 20 mg p.o. at bedtime has been ordered, that will help ammonia level, insulin has ordered, amlodipine 5 mg daily, PhosLo 667 mg p.o. W and M, Pletal 50 mg b.i.d., Protonix 40 daily, Synthroid 88 mcg daily, Toprol-XL 50 daily, TriCor 145 p.o. daily, thiamine 100 mg b.i.d. We will continue present therapy. We will follow the repeat labs and we will monitor the patient closely. We will follow with you. Isabella Connors MD
--- NOTE | 2016-11-12 02:14 | PN ---
DATE: 11/11/2016 SUBJECTIVE: The patient was seen this morning in room 376, bed 1 with his daughter and sister at the bedside. He is groggy, lethargy, encephalopathic. Answers most questions appropriately, but is obviously slow in mentation and for him, his far from his baseline. PHYSICAL EXAMINATION: HEENT: Conjunctiva is pink. Mucous membrane is dry. NECK: Supple without masses. LUNGS: Show good aeration right and left. HEART: Regular, but not tachycardiac. ABDOMEN: Soft, nontender. EXTREMITIES: Show no significant edema. Arm show a flap and asterixis. IMPRESSION: 1. Metabolic encephalopathy. 2. History of heavy alcohol use in the distant past with minimal alcohol consumption in the last 40 years. 3. Diabetes. 4. Hypertension. 5. Chronic renal failure worsening. PLAN: Case was discussed at great length with Dr. Dalton at the bedside. Give IV fluids, gentle IV hydration for the next one to three days and then transfer to transitional care unit for further evaluation. We will monitor liver enzymes and ammonia level as well. Berto Reyes MD [facility]
[2016-11-12 06:50] LABS: BASO # 0.04 K/mm3 (0.0-2.0); BASO % 0.7 % (0.0-3.0); EOS # 0.2 (0.0-0.7); EOS % 3.1 % (1.5-5.0); GRAN # 4.27 (1.4-6.5); GRAN % 69.6 % (50.0-68.0); LYMPH # 0.9 (1.2-3.4); LYMPH % 15.3 % (22.0-35.0); MEAN CELL VOLUME 89.3 fl (80.0-105.0); MEAN CORPUSCULAR HEMOGLOBIN 33.1 pg (25.0-35.0); MEAN CORPUSCULAR HGB CONC 37.1 g/dl (31.0-37.0); MEAN PLATELET VOLUME 11.7 fl (7.0-11.0); MONO # 0.7 (0.1-0.6); MONO % 11.3 % (1.0-6.0); RED CELL DISTRIBUTION WIDTH 15.9 % (11.5-14.5); WHITE BLOOD COUNT 6.1 10^3/ul (4.5-11.0)
[2016-11-12 06:59] LABS: ALB/GLOB RATIO 0.9 (1.1-1.8); BILIRUBIN,TOTAL 1.7 mg/dL (0.2-1.3); CALCIUM 9.4 mg/dL (8.4-10.5); MAGNESIUM 2.2 mg/dL (1.7-2.2); PHOSPHOROUS 4.1 mg/dL (2.5-4.5); POTASSIUM 3.9 mmol/L (3.6-5.0); TOTAL PROTEIN 7.9 g/dL (5.8-8.3)
[2016-11-12] MEDS: Insulin Reg-MEDIUM-Coverage SC SCH ×4 (07:44→21:17)
--- NOTE | 2016-11-12 09:56 | MRI ---
PROCEDURE: MRI BRAIN WITHOUT CONTRAST HISTORY: Encephalopathy COMPARISON: None. TECHNIQUE: Multiplanar, multisequence MR images of the brain were obtained without intravenous contrast enhancement. FINDINGS: HEMORRHAGE: None DWI: No evidence of an acute or early subacute infarction. BRAIN PARENCHYMA: Periventricular white matter lucency is well as sub cm long TR hyperintensities scattered in the subcortical centrum semiovale and optic radiation white matter distributions is compatible chronic microangiopathy. Further, minimal expansion of the ventricular sulcal and cisternal spaces appreciated compatible diffuse cerebral atrophy. There is no mass effect or suspicious extra-axial fluid collection identified. Midline brain anatomy appears within normal limits including the corpus callosum and brainstem. No cortical edema is identified throughout. Posterior fossa contents appear diffusely unremarkable the brainstem. VENTRICLES: Unremarkable. No hydrocephalus. CRANIUM: Unremarkable. ORBITS: Grossly unremarkable. PARANASAL SINUSES/MASTOIDS: Left mastoiditis identified. VASCULAR SYSTEM: Skull base flow voids intact. OTHER FINDINGS: None. IMPRESSION: 1. Nonacute unenhanced brain MRI. 2. Age-appropriate limited age-related neuro degenerate changes are identified.
[2016-11-12] MEDS: Metoprolol Succinate 50 mg XL Tab PO SCH (10:00)
[2016-11-12] MEDS: Cilostazol 50 mg Tab UD PO SCH ×2 (10:01→18:10)
[2016-11-12] MEDS: Levothyroxine 88 MCG TAB PO SCH (10:01)
[2016-11-12] MEDS: Pantoprazole 40 mg EC Tab PO SCH (10:01)
[2016-11-12] MEDS: Insulin Lispro (humaLOG) MIX 75/25(10 ml) SC SCH ×3 (10:05→18:10)
--- NOTE | 2016-11-12 10:33 | CP.PCM.PN ---
<oLbo Varma - Last Filed: 11/12/16 12:39> Subjective - Date & Time of Evaluation Date of Evaluation: 11/12/16 Time of Evaluation: 07:55 - Subjective Subjective: Neurology Progress Note for Dr. Shah Service Patient seen and examined at bedside. Somnolent, resting without overt discomfort. As per at bedside, had another episode of lethargy prior to sleep last night, but not confused or refusing medications. Objective - Vital Signs/Intake and Output Vital Signs (last 24 hours): Temp Pulse Resp BP Pulse Ox 97.7 F 62 20 110/48 L 99 11/12/16 08:30 11/12/16 08:30 11/12/16 08:30 11/12/16 08:30 11/12/16 08:30 Intake and Output: 11/12/16 11/12/16 06:59 18:59 Intake Total 1440 Output Total 900 Balance 540 - Medications Medications: Current Medications Amiodarone HCl (Cordarone) 200 mg PO QAM [facility] Last Admin: 11/11/16 10:41 Dose: 200 mg Amlodipine Besylate (Norvasc) 5 mg PO BID [facility] Last Admin: 11/11/16 17:32 Dose: 5 mg Aspirin (Ecotrin) 81 mg PO DAILY [facility] Last Admin: 11/11/16 10:41 Dose: 81 mg Calcium Acetate (Phoslo) 667 mg PO WM [facility] Last Admin: 11/12/16 09:07 Dose: Not Given Cholecalciferol (Vitamin D) 5,000 iu PO DAILY [facility] Last Admin: 11/11/16 10:43 Dose: 5,000 iu Cilostazol (Pletal) 50 mg PO BID [facility] Last Admin: 11/11/16 17:33 Dose: 50 mg Fenofibrate (Tricor) 145 mg PO DAILY [facility] Last Admin: 11/11/16 10:42 Dose: 145 mg Sodium Chloride (Sodium Chloride 0.45%) 1,000 mls @ 60 mls/hr IV .[id number] [facility] Last Admin: 11/11/16 10:45 Dose: 60 mls/hr Insulin Human Regular (Humulin R Med) 0 units SC [facility] PRN Reason: Protocol Last Admin: 11/12/16 07:44 Dose: Not Given Insulin Lispro Protam/Lispro Human (Humalog Mix 75/25) 25 units SC BID [facility] Last Admin: 11/11/16 18:14 Dose: 25 units Lactulose (Enulose) 20 gm PO HS [facility] Last Admin: 11/11/16 22:00 Dose: Not Given Levothyroxine Sodium (Synthroid) 88 mcg PO QAM [facility] Last Admin: 11/11/16 10:42 Dose: 88 mcg Metoprolol Succinate (Toprol Xl) 50 mg PO QAM [facility] Last Admin: 11/11/16 10:42 Dose: 50 mg Liraglutide [Victoza 3-Anuel] 1.8 Mg ( Home Med) 1.8 mg SQ 2100 [facility] Last Admin: 11/11/16 21:38 Dose: 1.8 mg Pantoprazole Sodium (Protonix Ec Tab) 40 mg PO DAILY [facility] Last Admin: 11/11/16 10:42 Dose: 40 mg Thiamine HCl (Vitamin B1 Tab) 100 mg PO BID [facility] Last Admin: 11/11/16 17:33 Dose: 100 mg Tramadol/Acetaminophen (Ultracet 37.5/325 Mg) 2 tab PO Q12H PRN PRN Reason: Headache Stop: 11/14/16 19:47 Last Admin: 11/10/16 23:22 Dose: 2 tab - Labs Labs: 11/12/16 06:00 11/12/16 06:00 Assessment and Plan - Assessment and Plan (Free Text) Assessment: This is a 71 yo M with PMH of AFib s/p ablation in 1998, Provoked DVT , HTN, CKD Stage IV, HLD, PVD, DM, and asbestosis who presents to [facility] with complaint of AMS since this morning. AMS likely 2/2 metabolic encephalopathy from elevated ammonia (was 105, now 95) in setting of underlying CKD appearing to acutely worsen (Cr 4.0 3 days prior, trending up to 5.0 on this admission). However, given risk of histories of paroxysmal afib, prior DVT, and vascular disease, need to rule out AMS 2/2 embolic stroke. Gait instability may be due to encephalopathy vs PVD vs underlying diabetic neuropathy. MRI to rule out embolic CVA negative for acute findings. EEG obtained, notable for diffuse slowing (please see full report for further details) consistent with bilateral cerebral dysfxn. Plan: 1) MRI brain negative for acute findings, EEG negative for seizures 2) ASA 81mg PO daily 3) Thaimine 100mg PO BID for cognition 4) PT/OT due to gait instability. 5) Repeat ammonia level 105 yesterday, 95 today; continue Lactulose as per Nephro; may benefit from GI consult 6) Delirium precautions; frequent daytime re-orientations, avoid nighttime interruptions Case discussed and reviewed with attending, Dr. Lynne Shah. <Asad Shah - Last Filed: 11/12/16 12:43> Objective - Vital Signs/Intake and Output Vital Signs (last 24 hours): Temp Pulse Resp BP Pulse Ox 97.7 F 62 20 110/48 L 99 11/12/16 08:30 11/12/16 10:00 11/12/16 08:30 11/12/16 10:00 11/12/16 08:30 Intake and Output: 11/12/16 11/12/16 06:59 18:59 Intake Total 1440 Output Total 900 Balance 540 - Medications Medications: Current Medications Amiodarone HCl (Cordarone) 200 mg PO QAM [facility] Last Admin: 11/12/16 10:00 Dose: 200 mg Amlodipine Besylate (Norvasc) 5 mg PO BID [facility] Last Admin: 11/12/16 10:00 Dose: 5 mg Aspirin (Ecotrin) 81 mg PO DAILY [facility] Last Admin: 11/12/16 10:01 Dose: 81 mg Calcium Acetate (Phoslo) 667 mg PO WM [facility] Last Admin: 11/12/16 10:00 Dose: 667 mg Cholecalciferol (Vitamin D) 5,000 iu PO DAILY [facility] Last Admin: 11/12/16 09:59 Dose: 5,000 iu Cilostazol (Pletal) 50 mg PO BID [facility] Last Admin: 11/12/16 10:01 Dose: 50 mg Fenofibrate (Tricor) 145 mg PO DAILY [facility] Last Admin: 11/12/16 10:01 Dose: 145 mg Sodium Chloride (Sodium Chloride 0.45%) 1,000 mls @ 60 mls/hr IV .[id number] [facility] Last Admin: 11/11/16 10:45 Dose: 60 mls/hr Insulin Human Regular (Humulin R Med) 0 units SC ACHS [facility] PRN Reason: Protocol Last Admin: 11/12/16 11:39 Dose: Not Given Insulin Lispro Protam/Lispro Human (Humalog Mix 75/25) 25 units SC BID [facility] Last Admin: 11/12/16 10:05 Dose: 25 units Lactulose (Enulose) 20 gm PO HS [facility] Last Admin: 11/12/16 09:59 Dose: 20 gm Levothyroxine Sodium (Synthroid) 88 mcg PO QAM [facility] Last Admin: 11/12/16 10:01 Dose: 88 mcg Metoprolol Succinate (Toprol Xl) 50 mg PO QAM [facility] Last Admin: 11/12/16 10:00 Dose: 50 mg Liraglutide [Victoza 3-Anuel] 1.8 Mg ( Home Med) 1.8 mg SQ 2100 [facility] Last Admin: 11/11/16 21:38 Dose: 1.8 mg Pantoprazole Sodium (Protonix Ec Tab) 40 mg PO DAILY [facility] Last Admin: 11/12/16 10:01 Dose: 40 mg Thiamine HCl (Vitamin B1 Tab) 100 mg PO BID [facility] Last Admin: 11/12/16 10:03 Dose: 100 mg Tramadol/Acetaminophen (Ultracet 37.5/325 Mg) 2 tab PO Q12H PRN PRN Reason: Headache Stop: 11/14/16 19:47 Last Admin: 11/10/16 23:22 Dose: 2 tab - Labs Labs: 11/12/16 06:00 11/12/16 06:00 Attending/Attestation - Attestation I have personally seen and examined this patient.: Yes I have fully participated in the care of the patient.: Yes I have reviewed all pertinent clinical information, including history, physical exam and plan: Yes
[2016-11-12 16:40] VITALS: RESP 18; O2SAT 98
--- NOTE | 2016-11-12 20:45 | PN ---
DATE: 11/12/2016 SUBJECTIVE: The patient is currently seen on 3R. He has multiple family members in the room. The patient continues to doze off. The patient still has shakes in his upper extremity when he extends his hands. The patient is still not back to his baseline. He remains on IV fluid hydration with a mild improvement in his BUN and creatinine. He has not develop any significant lower extremity edema at this point in time. MEDICATIONS: Medication list reviewed. The patient is currently on amiodarone, Ecotrin, lactulose, insulin, Victoza, Norvasc, PhosLo, Pletal, Protonix, half normal saline 16-hour, Synthroid, metoprolol, TriCor, Ultracet, vitamin B1, and vitamin D. OBJECTIVE: INTAKE/OUTPUT: Intake 1740, output 1700. Last weight of 230 pounds. VITAL SIGNS: Blood pressure 110/48, temperature 97.7, pulse of 62, respiratory rate of 20, pulse oximetry of 99%. HEENT: Shows him to be normocephalic, atraumatic. Conjunctivae are pink. Sclerae are anicteric. NECK: Supple. No neck vein distention. CHEST: Clear to auscultation and percussion. No rales, rhonchi, or wheezing. CARDIOVASCULAR: Shows irregular rate and rhythm with a 2 to 3/6 holosystolic murmur in the left lower sternal border. No S3,no S4, no rub. ABDOMEN: Soft. Bowel sounds are normal. No rebound, no guarding, no masses. No organomegaly noted. EXTREMITIES: Show no lower extremity pitting edema. No cyanosis or clubbing. Diminished lower extremity pulses. NEUROLOGIC: Shows him to have asterixis bilaterally. His upper extremity unchanged from previous exam. LABORATORY DATA: CBC today, white blood cell count is 6.1, hemoglobin 11.5, platelet count 127,000. Coags show PTT of 31. Chemistries normal electrolytes. BUN 57 down from 70. Creatinine 4.5 down from high at 5.0 again his baseline BUN is in the 30-40 range with a baseline creatinine in the upper 2 to low 3 range. Calcium is 9.4, phosphorus 4.1, magnesium 2.2, glucose is 142, bilirubin 1.7 with mild elevation of alkaline phosphatase. Ammonia level is 105. Yesterday 95. Today, the patient had started lactulose. Albumin is 3.8. Thyroid function test are normal. PTH is normal. Vitamin D25 hydroxy level normal. ASSESSMENT: 1. Acute renal failure superimposed on chronic kidney disease stage III/IV. This is in the setting of diabetic nephropathy, elevation of his BUN and creatinine was secondary to a greater than 20 pound diuresis during the previous hospitalization. The patient presented with congestive heart failure and significant lower extremity edema. The patient is now cautiously receiving IV fluid hydration to try and balance out his level of prerenal azotemia and keeping in mind they need to prevent edema formation and re-development of congestive heart failure. His baseline BUN is in the 30-40 range with the baseline creatinine in the upper 2 to low 3 range, those will be our target goals. The patient presently has no uremic symptoms. He does; however, have to [id number] asterixis and that might be associated with high ammonia level. 2. Non-insulin dependent diabetes mellitus. The patient is currently on insulin, but not diabetic nephropathy. The patient will continue insulin plus Victoza. 3. History of hypothyroidism. Thyroid function levels have been okay. The patient will continue thyroid replacement therapy. No changes. 4. History of anemia. No Procrit necessary at this point in time. Hemoglobin is acceptable at 11.5. 5. Past history of atrial fibrillation, status post ablation therapy. The patient is presently in normal sinus rhythm with the first degree atrioventricular block. 6. Elevated pneumonia level. There was concerned about underlying liver disease. Repeat liver CT scan showed no evidence for cirrhosis or scarring. The patient is status post gallbladder resection. The patient had been a heavy drinker many years ago. 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 PLAN: 1. Discussed with family in detail. Discussed with the patient and discussed with staff on 3R. I will increase to lactulose to 20 g twice a day. I do suggest a GI evaluation with the possibility perhaps of starting Xifaxan. Also, some further clarification regarding the extent of his liver disease would be helpful. 2. Continue cautious IV fluid hydration with accurate I's and O's and daily weights. 3. Once BUN falls into the low 40 range, the creatinine falls into the low 3 range, IV fluid may be discontinued. 4. Appreciate neuro evaluation. 5. Appreciate cardiology evaluation. 6. Close renal followup during hospitalization. Manpreet Dalton MD
[2016-11-12] MEDS: LIRAGLUTIDE 1.8 MG SQ SCH (21:00)
--- NOTE | 2016-11-12 21:16 | CP.PCM.PN ---
Subjective - Date & Time of Evaluation Date of Evaluation: 11/12/16 Time of Evaluation: 21:11 - Subjective Subjective: Patient was seen at bedside. Has no complaints. Denies chest pain , sob. Was noted to have Wencheback on monitor by cardiac monitor technician and nurse. As per cardiac monitor technician heart rate went down upto 40/min several times. 71 year old white male was admitted altered mental status. PMH of Hypertension, IDDM, chronic renal insufficiency, PVD. Objective - Vital Signs/Intake and Output Vital Signs (last 24 hours): Temp Pulse Resp BP Pulse Ox 97.7 F 57 L 18 121/80 98 11/12/16 08:30 11/12/16 18:10 11/12/16 16:00 11/12/16 18:10 11/12/16 16:00 Intake and Output: 11/12/16 11/13/16 18:59 06:59 Intake Total 360 Output Total 1075 Balance -715 - Medications Medications: Current Medications Amiodarone HCl (Cordarone) 200 mg PO QAM [facility] Last Admin: 11/12/16 10:00 Dose: 200 mg Amlodipine Besylate (Norvasc) 5 mg PO BID [facility] Last Admin: 11/12/16 18:10 Dose: 5 mg Aspirin (Ecotrin) 81 mg PO DAILY [facility] Last Admin: 11/12/16 10:01 Dose: 81 mg Calcium Acetate (Phoslo) 667 mg PO WM [facility] Last Admin: 11/12/16 18:10 Dose: 667 mg Cholecalciferol (Vitamin D) 5,000 iu PO DAILY [facility] Last Admin: 11/12/16 09:59 Dose: 5,000 iu Cilostazol (Pletal) 50 mg PO BID [facility] Last Admin: 11/12/16 18:10 Dose: 50 mg Fenofibrate (Tricor) 145 mg PO DAILY [facility] Last Admin: 11/12/16 10:01 Dose: 145 mg Sodium Chloride (Sodium Chloride 0.45%) 1,000 mls @ 60 mls/hr IV .[id number] [facility] Last Admin: 11/11/16 10:45 Dose: 60 mls/hr Insulin Human Regular (Humulin R Med) 0 units SC ACHS [facility] PRN Reason: Protocol Last Admin: 11/12/16 17:13 Dose: Not Given Insulin Lispro Protam/Lispro Human (Humalog Mix 75/25) 25 units SC BID [facility] Last Admin: 11/12/16 18:10 Dose: 25 units Lactulose (Enulose) 20 gm PO BID [facility] Last Admin: 11/12/16 18:10 Dose: 20 gm Levothyroxine Sodium (Synthroid) 88 mcg PO QAM [facility] Last Admin: 11/12/16 10:01 Dose: 88 mcg Metoprolol Succinate (Toprol Xl) 50 mg PO QAM [facility] Last Admin: 11/12/16 10:00 Dose: 50 mg Liraglutide [Victoza 3-Anuel] 1.8 Mg ( Home Med) 1.8 mg SQ 2100 [facility] Last Admin: 11/11/16 21:38 Dose: 1.8 mg Pantoprazole Sodium (Protonix Ec Tab) 40 mg PO DAILY [facility] Last Admin: 11/12/16 10:01 Dose: 40 mg Thiamine HCl (Vitamin B1 Tab) 100 mg PO BID [facility] Last Admin: 11/12/16 18:10 Dose: 100 mg Tramadol/Acetaminophen (Ultracet 37.5/325 Mg) 2 tab PO Q12H PRN PRN Reason: Headache Stop: 11/14/16 19:47 Last Admin: 11/10/16 23:22 Dose: 2 tab - Labs Labs: 11/12/16 06:00 11/12/16 06:00 Most Recent Lab Values WBC 6.1 10^3/ul (4.5-11.0) 11/12/16 06:00 RBC 3.47 10^6/uL (3.5-6.1) L 11/12/16 06:00 Hgb 11.5 g/dL (14.0-18.0) L 11/12/16 06:00 Hct 31.0 % (42.0-52.0) L 11/12/16 06:00 MCV 89.3 fl (80.0-105.0) 11/12/16 06:00 MCH 33.1 pg (25.0-35.0) 11/12/16 06:00 MCHC 37.1 g/dl (31.0-37.0) H 11/12/16 06:00 RDW 15.9 % (11.5-14.5) H 11/12/16 06:00 Plt Count 127 10^3/uL (120.0-450.0) 11/12/16 06:00 MPV 11.7 fl (7.0-11.0) H 11/12/16 06:00 Gran % 69.6 % (50.0-68.0) H 11/12/16 06:00 Lymph % (Auto) 15.3 % (22.0-35.0) L 11/12/16 06:00 Rowan % (Auto) 11.3 % (1.0-6.0) H 11/12/16 06:00 Eos % (Auto) 3.1 % (1.5-5.0) 11/12/16 06:00 Baso % (Auto) 0.7 % (0.0-3.0) 11/12/16 06:00 Gran # 4.27 (1.4-6.5) 11/12/16 06:00 Lymph # 0.9 (1.2-3.4) L 11/12/16 06:00 Rowan # 0.7 (0.1-0.6) H 11/12/16 06:00 Eos # 0.2 (0.0-0.7) 11/12/16 06:00 Baso # 0.04 K/mm3 (0.0-2.0) 11/12/16 06:00 pO2 48 mm/Hg (30-55) 11/10/16 09:10 VBG pH 7.49 (7.32-7.43) H 11/10/16 09:10 VBG pCO2 37.0 (40-60) L 11/10/16 09:10 VBG HCO3 28.2 mmol/l (21-28) H 11/10/16 09:10 VBG Total CO2 29.3 mmol.L (22-28) H 11/10/16 09:10 VBG O2 Sat (Calc) 90.4 % (40-65) H 11/10/16 09:10 VBG Base Excess 4.6 mmol/L (0.0-2.0) H 11/10/16 09:10 VBG Potassium 3.7 mmol/L (3.6-5.2) 11/10/16 09:10 Sodium 138.0 mmol/L (132-148) 11/10/16 09:10 Chloride 103.0 mmol/L (98-107) 11/10/16 09:10 Glucose 135 mg/dl (75-110) H 11/10/16 09:10 Lactate 1.4 mmol/L (0.7-2.1) 11/10/16 09:10 FiO2 21.0 % 11/10/16 09:10 Sodium 138 mmol/L (132-148) 11/12/16 06:00 Potassium 3.9 mmol/L (3.6-5.0) 11/12/16 06:00 Chloride 103 mmol/L (95-110) 11/12/16 06:00 Carbon Dioxide 23 mmol/L (21-33) 11/12/16 06:00 Anion Gap 16 (10-20) 11/12/16 06:00 BUN 57 mg/dL (7-21) H 11/12/16 06:00 Creatinine 4.5 mg/dL (0.5-1.4) H 11/12/16 06:00 Est GFR ( Amer) 16 11/12/16 06:00 Est GFR (Non-Af Amer) 13 11/12/16 06:00 POC Glucose (mg/dL) 96 mg/dL (65-110) 11/12/16 22:21 Random Glucose 142 mg/dL (70-110) H 11/12/16 06:00 Calcium 9.4 mg/dL (8.4-10.5) 11/12/16 06:00 Phosphorus 4.1 mg/dL (2.5-4.5) 11/12/16 06:00 Magnesium 2.2 mg/dL (1.7-2.2) 11/12/16 06:00 Total Bilirubin 1.7 mg/dL (0.2-1.3) H 11/12/16 06:00 AST 58 U/L (17-59) 11/12/16 06:00 ALT 41 U/L (7-56) 11/12/16 06:00 Alkaline Phosphatase 128 U/L (38-126) H 11/12/16 06:00 Ammonia 95 umol/L (9-33) H 11/12/16 06:00 Troponin I 0.03 ng/mL D 11/10/16 07:45 NT-Pro-B Natriuret Pep 1310 pg/mL (0-450) H 11/10/16 07:45 Total Protein 7.9 g/dL (5.8-8.3) 11/12/16 06:00 Albumin 3.8 g/dL (3.0-4.8) 11/12/16 06:00 Globulin 4.1 gm/dL 11/12/16 06:00 Albumin/Globulin Ratio 0.9 (1.1-1.8) L 11/12/16 06:00 Venous Blood Potassium 3.7 mmol/L (3.6-5.2) 11/10/16 09:10 Urine Color Yellow (YELLOW) 11/10/16 13:10 Urine Appearance Sl cloudy (CLEAR) 11/10/16 13:10 Urine pH 7.0 (4.7-8.0) 11/10/16 13:10 Ur Specific [place] 1.010 (1.005-1.035) 11/10/16 13:10 Urine Protein Trace mg/dL (<30 mg/dL) H 11/10/16 13:10 Urine Glucose (UA) Negative mg/dL (NEGATIVE) 11/10/16 13:10 Urine Ketones Negative mg/dL (NEGATIVE) 11/10/16 13:10 Urine Blood Trace-intact (NEGATIVE) H 11/10/16 13:10 Urine Nitrate Negative (NEGATIVE) 11/10/16 13:10 Urine Bilirubin Negative (NEGATIVE) 11/10/16 13:10 Urine Urobilinogen 1.0 E.U./dL (<1 E.U./dL) H 11/10/16 13:10 Ur Leukocyte Esterase Negative Mallorie/uL (NEGATIVE) 11/10/16 13:10 Urine RBC Negative /hpf (0-2) 11/10/16 13:10 Urine WBC Negative /hpf (0-6) 11/10/16 13:10 Alcohol, Quantitative < 10 mg/dL (0-10) 11/10/16 07:45 - Constitutional Appears: Well, No Acute Distress - Head Exam Head Exam: ATRAUMATIC, NORMAL INSPECTION, NORMOCEPHALIC - Eye Exam Eye Exam: Normal appearance - ENT Exam ENT Exam: Normal External Ear Exam - Neck Exam Neck Exam: Normal Inspection - Respiratory Exam Respiratory Exam: NORMAL BREATHING PATTERN - Cardiovascular Exam Cardiovascular Exam: absent: JVD - GI/Abdominal Exam GI & Abdominal Exam: absent: Distended - Rectal Exam Rectal Exam: Deferred - Exam Additional comments: Deferred. - Extremities Exam Extremities Exam: Normal Inspection - Back Exam Back Exam: NORMAL INSPECTION - Neurological Exam Neurological Exam: Alert, Oriented x3 - Psychiatric Exam Psychiatric exam: Normal Affect, Normal Mood - Skin Skin Exam: Normal Color Assessment and Plan - Assessment and Plan (Free Text) Assessment: Wenchebach block. HTN. IDDM. Chronic renal insufficiency Plan: Observation. Hold Metoprolol.
--- NOTE | 2016-11-13 01:39 | PN ---
DATE: 11/12/2016 SUBJECTIVE: The patient denies any chest pain, shortness of breath, any palpitations. Family is at the bedside. PHYSICAL EXAMINATION: GENERAL: Lying flat in the bed, not in apparent distress. VITAL SIGNS: Temperature afebrile, heart rate 62, blood pressure 110/48. HEENT: PERRLA. Extraocular muscles intact. NECK: Supple. No carotid bruit or thyromegaly. CHEST: Clear to auscultation. HEART: S1 and S2, regular. ABDOMEN: Soft. EXTREMITIES: Clubbing and cyanosis negative. LABORATORY DATA: Blood workup as follows; WBC is , hemoglobin 11.4, hematocrit 31.0, platelet count 127. Chemistry showed sodium 130, potassium 3.9, chloride 103, carbon dioxide 23, anion gap 16, BUN 57, creatinine 4.5. Random sugar 142, calcium 9.4, phosphorus 4.1, magnesium 2.2, and bilirubin 1.7. IMPRESSION: Altered mental status, acute chronic renal insufficiency, diabetes, peripheral artery disease, asbestosis, hypertension, paroxysmal atrial fibrillation status post ablation, high ammonia level anemia, bilateral ankle-brachial index and pulse volume recording suggestive of possible left superficial femoral artery occlusive disease, possible bilateral tibial occlusive disease. RECOMMENDATIONS: Since the patient has renal insufficiency particularly stage IV or V, any aggressive through the patient to complete renal failure. He will try to conservatively for now, aggressive control of blood pressure. Lasix is on hold. Continue Toprol XL. Continue Tricor, Protonix, and PhosLo. Followup kiln setter and follow up blood workup. I discussed with the patient's family and will follow with you. Continue Norvasc. Avoid nephrotoxic medication. We will follow with you. Thank you, Dr. Flower, for providing us the opportunity in taking care of Andrew Tanner. Isabella Mcgregor MD
[2016-11-13 07:17] LABS: HEMATOCRIT 28.4 % (42.0-52.0); MEAN CORPUSCULAR HEMOGLOBIN 32.9 pg (25.0-35.0); MEAN PLATELET VOLUME 11.5 fl (7.0-11.0); WHITE BLOOD COUNT 5.3 10^3/ul (4.5-11.0)
[2016-11-13 07:29] LABS: ALB/GLOB RATIO 0.9 (1.1-1.8); BILIRUBIN,TOTAL 1.4 mg/dL (0.2-1.3); CALCIUM 9.1 mg/dL (8.4-10.5); POTASSIUM 3.7 mmol/L (3.6-5.0); TOTAL PROTEIN 6.8 g/dL (5.8-8.3)
[2016-11-13 07:59] LABS: FREE T4 2.98 ng/dL (0.78-2.19)
[2016-11-13 08:13] LABS: THYROID STIMULATING HORMONE 4.09 mIU/mL (0.46-4.68)
[2016-11-13] MEDS: Insulin Reg-MEDIUM-Coverage SC SCH ×2 (08:32→12:15)
[2016-11-13] MEDS: Pantoprazole 40 mg EC Tab PO SCH (10:42)
[2016-11-13] MEDS: Cilostazol 50 mg Tab UD PO SCH (10:42)
[2016-11-13] MEDS: Levothyroxine 88 MCG TAB PO SCH (10:45)
[2016-11-13 10:56] VITALS: BP 157/68; PULSE 67
--- NOTE | 2016-11-13 12:32 | PN ---
SUBJECTIVE: The patient according to the nursing staff and his family had a difficult night. He was up most of the night. He apparently urinated in bed. He still remains a bit agitated and still has asterixis. He has not back to himself yet. Of note, his ammonia level has dropped down to 68 with the doubling of the lactulose dose. Morning chemistries show a BUN of 48 with a creatinine of 4.1, which continue to show improvement with gentle hydration. MEDICATIONS: Medication list reviewed. The patient is currently on Victoza, amiodarone, Ecotrin, lactulose, insulin, Norvasc, PhosLo, Pletal, Protonix, half normal saline 60 mL an hour, Synthroid, Toprol, TriCor, Ultracet, vitamin B, and vitamin D. OBJECTIVE: INTAKE/OUTPUT: Intake is 2160 with an urine output of 6225. A.m. weight is pending. VITAL SIGNS: Blood pressure 121/80, pulse of 57, temperature is 97.7, respiratory rate is 18. HEENT: Shows him to be normocephalic, atraumatic. Conjunctivae are pink. Sclerae are nonicteric. NECK: Supple. No neck vein distention. CHEST: Clear to auscultation and percussion. No rales, rhonchi, or wheezing. CARDIOVASCULAR: Shows irregular rate and rhythm with a 2 to 3/6 holosystolic murmur in the left lower sternal border. No S3, no S4, no rub. ABDOMEN: Soft. Bowel sounds are normal. No rebound, no guarding, no masses. No organomegaly noted. EXTREMITIES: Show no lower extremity pitting edema. No cyanosis or clubbing. Diminished lower extremity pulses. NEUROLOGIC: Shows him to be mildly confused with continued asterixis of his upper extremity bilaterally. LABORATORY DATA AND IMAGING: CBC today, white blood cell count 5.3 with a hemoglobin of 10.5, platelet count is 118,000. Chemistries today show sodium 138, potassium 3.7, chloride 106 with a CO2 of 22, BUN is 48 down from 70. Creatinine is 4.1 down from 5.0. His baseline BUN is in the 30-40 range, though he is rapidly approaching that. His baseline creatinine is in the upper 2 to low 3 range. Calcium is 9.1, phosphorus is 4.1 with a magnesium of 2.2. His glucose level this morning was 94. His ammonia level is significantly improved down to 68 from 128 yesterday. Thyroid function tests were normal. PTH was normal. Vitamin D level was normal. ASSESSMENT: 1. Acute renal failure superimposed on chronic kidney disease stage III/IV. This is in the setting of history of diabetic nephropathy. BUN and creatinine continued to fall slowly with hydration despite the patient being in negative fluid balance. The patient is no longer receiving diuretics. The patient's baseline BUN and creatinine are in the upper 30 to low 40 range and mid 2 to low 3 range respectively. I will continue IV fluid hydration until he reaches his baseline BUN and creatinine with close monitoring of his volume status. He appears to be euvolemic, if anything he appears to be in negative fluid balance. No evidence for congestive heart failure and no evidence for lower extremity edema. The patient other than mild to moderate asterixis has no uremic symptoms. It is quite possible that the asterixis is related to the elevated ammonia level. 2. History of non-insulin dependent diabetes mellitus. The patient's sugar control is good, now on insulin. The patient will continue insulin plus Victoza. 3. History of hypothyroidism. Thyroid function tests are normal. 4. History of anemia. No Procrit necessary at this point in time. Hemoglobin level remains greater than 10. 5. Past history of atrial fibrillation, status post ablation therapy. The patient appears to be in normal sinus rhythm with a periodic bradycardia. 6. History of an elevated ammonia level. This has number has improved from a high of 105 down to 68 with the addition of additional lactulose. The patient will be seen by GI over the weekend. No evidence for cirrhosis. There is, however, evidence of alcohol use in the distant past with episodes of hepatitis according to his family members. PLAN: 1. Discussed with his daughter in detail and staff on 3R. The patient will continue lactulose 20 g twice a day. Await GI recommendation and followup. 2. Continue cautious IV fluid hydration and try and balance his I's and O's. 3. Once his BUN and creatinine fall to baseline range, BUN in the low 40s with a creatinine in the upper 2 to low 3 range, IV fluids may be discontinued if the patient is tolerating p.o. fluid intake. 4. Continue to hold Lasix therapy. 5. Neuro followup appreciated. 6. Cardiology followup appreciated. 7. We will continue to monitor the patient closely in the hospital from the renal standpoint. Manpreet Dalton MD [facility]
[2016-11-13] MEDS: Insulin Lispro (humaLOG) MIX 75/25(10 ml) SC SCH (15:12)
--- NOTE | 2016-11-13 18:22 | CON ---
DATE: 11/13/2016 This consult is for Dr. Mejia, who I am covering. REASON FOR CONSULTATION: I have been asked to see this 71-year-old male who was seen recently hospitalized for congestive heart failure and fluid overload who was readmitted to the hospital yesterday with increasing confusion and altered mental status. The patient apparently was disoriented and difficult to arouse on the morning of admission and was incontinent of urine. I have been asked to see this patient as he is noted to have a rise in his serum ammonia level. There is no prior history of liver disease. The patient used to consume alcohol excessively over 20 years ago, but denies any recent alcohol abuse. A CT scan of the abdomen and pelvis performed on his admission last week that showed no evidence of cirrhosis and essentially a normal appearing liver. The patient has multiple comorbidities including stage IV CKD, hypertension, diabetes mellitus, asbestosis, peripheral arterial disease with arterial insufficiency of his lower extremities and atrial fibrillation status post ablation many years ago. This morning, the patient is more lucid and is conversing with family. He is alert and oriented x3. MRI of the brain was negative for any acute changes. EEG shows diffuse cerebral dysfunction. PAST SURGICAL HISTORY: Notable for hernia repair, left knee replacement, cholecystectomy. SOCIAL HISTORY: He denies cigarette smoking. He consumes alcohol socially, but denies any recent alcohol abuse. REVIEW OF SYSTEMS: A 14-point review of systems is notable for confusion, disorientation and edema of his legs. PHYSICAL EXAMINATION: GENERAL: Middle-aged male lying in bed, awake, alert, in no acute distress. VITAL SIGNS: Reveal that he is afebrile. Blood pressure of 157/68, heart rate is 67. HEENT: Reveal sclerae to be white. Conjunctivae pink. NECK: Supple. CHEST: Reveal scattered rhonchi. HEART: Reveals a irregular rate. ABDOMEN: Protuberant, soft, nontender. EXTREMITIES: Showed trace pedal edema with some mild erythema in his tibial areas. LABORATORY DATA: Reveal white blood cell count 5.3, hemoglobin 10.5. Chemistries reveal BUN of 48, creatinine 4.1, AST 64, ALT 49, total bilirubin 1.4. Serum ammonia this morning is 68. On admission serum ammonia was 37 and 2 days ago went up to 105 and this morning is 68. IMPRESSION: A 71-year-old male with multiple comorbidities including stage IV chronic kidney disease, hypertension, asbestosis, peripheral vascular disease, admitted with altered mental status. His serum ammonia level on admission to the hospital was only minimally elevated at 37. CT scan of the abdomen and pelvis performed 1 month ago does not show any evidence of cirrhosis of the liver or any liver abnormalities. I do not believe that this patient's encephalopathy is due to liver disease although his serum ammonia level did rise. He has been started on lactulose. RECOMMENDATIONS 1. We will add Xifaxan 550 mg p.o. b.i.d. 2. Close monitoring of his mental status. Shane Bonilla MD
== END 2016-11-13 15:21 | DRG 682 ==
LOC: ED 07:06 → ERH 10:08 → 3RSO 13:12
PROVIDERS: ADMIT Internal Medicine; ATTEND Internal Medicine
DX: N17.9 Acute kidney failure, unspecified (principal); G93.41 Metabolic encephalopathy; I13.0 Hypertensive heart and chronic kidney disease with heart failure and stage 1 through stage 4 chronic kidney disease, or unspecified chronic kidney disease; I50.9 Heart failure, unspecified; E11.21 Type 2 diabetes mellitus with diabetic nephropathy; N18.4 Chronic kidney disease, stage 4 (severe); E11.40 Type 2 diabetes mellitus with diabetic neuropathy, unspecified; I48.0 Paroxysmal atrial fibrillation; N25.81 Secondary hyperparathyroidism of renal origin; E11.51 Type 2 diabetes mellitus with diabetic peripheral angiopathy without gangrene; E78.5 Hyperlipidemia, unspecified; E11.65 Type 2 diabetes mellitus with hyperglycemia; E03.9 Hypothyroidism, unspecified; R26.9 Unspecified abnormalities of gait and mobility; D63.1 Anemia in chronic kidney disease; E83.39 Other disorders of phosphorus metabolism; I44.0 Atrioventricular block, first degree; F17.290 Nicotine dependence, other tobacco product, uncomplicated; Z96.652 Presence of left artificial knee joint; Z77.090 Contact with and (suspected) exposure to asbestos; Z79.82 Long term (current) use of aspirin; Z79.4 Long term (current) use of insulin; Z87.442 Personal history of urinary calculi

== ENCOUNTER 2016-11-13 15:21 | Inpatient (IN) | payer OTHER ==
[2016-11-13] MEDS ORDERED: TraMADol/Apap 37.5/325 mg Tab PO PRN (16:09)
[2016-11-13 17:14] VITALS: BMI 22.4
[2016-11-13] MEDS ORDERED: Pneumococcal 23-Valent Vaccine IM ONE (17:14)
[2016-11-13] MEDS: Insulin Reg-MEDIUM-Coverage SC SCH ×2 (17:14→22:40)
[2016-11-13] MEDS: Sodium Chloride 0.45% 1,000 ML IV SCH (17:18)
[2016-11-13] MEDS: Cilostazol 50 mg Tab UD PO SCH (17:19)
[2016-11-13] MEDS: Insulin Lispro (humaLOG) MIX 75/25(10 ml) SC SCH (17:20)
[2016-11-13] MEDS: LIRAGLUTIDE SC SCH (22:38)
[2016-11-14] MEDS: Pantoprazole 40 mg EC Tab PO SCH (05:29)
[2016-11-14] MEDS: Levothyroxine 88 MCG TAB PO SCH (05:29)
[2016-11-14 06:19] LABS: BASO # 0.03 K/mm3 (0.0-2.0); BASO % 0.5 % (0.0-3.0); EOS # 0.2 (0.0-0.7); EOS % 2.5 % (1.5-5.0); GRAN # 3.77 (1.4-6.5); GRAN % 62.9 % (50.0-68.0); HEMATOCRIT 28.1 % (42.0-52.0); LYMPH # 1.3 (1.2-3.4); LYMPH % 21.8 % (22.0-35.0); MEAN CELL VOLUME 89.2 fl (80.0-105.0); MEAN CORPUSCULAR HEMOGLOBIN 32.7 pg (25.0-35.0); MEAN CORPUSCULAR HGB CONC 36.7 g/dl (31.0-37.0); MEAN PLATELET VOLUME 11.2 fl (7.0-11.0); MONO # 0.7 (0.1-0.6); MONO % 12.3 % (1.0-6.0); RED CELL DISTRIBUTION WIDTH 16.4 % (11.5-14.5)
[2016-11-14 06:29] LABS: BILIRUBIN,TOTAL 1.4 mg/dL (0.2-1.3); CALCIUM 9.3 mg/dL (8.4-10.5); POTASSIUM 3.8 mmol/L (3.6-5.0); TOTAL PROTEIN 7.1 g/dL (5.8-8.3)
[2016-11-14] MEDS: Insulin Reg-MEDIUM-Coverage SC SCH ×4 (08:06→22:38)
[2016-11-14] MEDS: Metoprolol Succinate 50 mg XL Tab PO SCH (08:48)
[2016-11-14] MEDS: Sodium Chloride 0.45% 1,000 ML IV SCH (10:37)
[2016-11-14] MEDS: Insulin Lispro (humaLOG) MIX 75/25(10 ml) SC SCH ×2 (10:40→18:13)
[2016-11-14] MEDS: Cilostazol 50 mg Tab UD PO SCH ×2 (10:42→18:14)
--- NOTE | 2016-11-14 13:52 | PN ---
DATE: 11/14/2016 SUBJECTIVE: The patient is seen in TCU. He is sitting in a chair, awake, alert. He denies any abdominal pain, nausea, vomiting. OBJECTIVE: VITAL SIGNS: Reveal temperature of 98.4, blood pressure 125/50, heart rate of 83. HEENT: Reveal sclerae to be white. Conjunctivae pink. NECK: Supple. CHEST: Reveal lungs to be clear. HEART: Reveal an irregular rate. ABDOMEN: Soft, nontender. EXTREMITIES: Sow erythema of his pretibial area with small blister on his right leg anteriorly. LABORATORY DATA: Reveal hemoglobin 10.3. Chemistries reveal BUN 42, creatinine 3.9, AST 63, ammonia 52. IMPRESSION: This is a 71-year-old male with stage IV chronic kidney disease, peripheral vascular disease admitted to the hospital with altered mental status with confusion and disorientation and combativeness. The patient was noted to have a elevated ammonia level after initial serum ammonia level was only mildly elevated. Repeat showed ammonia level over 100. The patient improved clinically with lactulose and Xifaxan. This morning his ammonia level was 52. Again, he does appear to have asterixis. His lactulose was stopped due to diarrhea. For some reason his Xifaxan was not reordered on admission to TCU. RECOMMENDATIONS: 1. We will reorder Xifaxan 550 mg p.o. b.i.d. 2. The patient can again elective liver spleen scan for further evaluation of cirrhosis. A CT scan of the abdomen and pelvis performed several months ago did not show any radiographic evidence of cirrhosis. Shane Bonilla MD
--- NOTE | 2016-11-14 19:23 | CON ---
DATE: 11/14/2016 CHIEF COMPLAINT: Altered mental status, confusion. HISTORY OF PRESENT ILLNESS: This 71-year-old man with stage IV chronic kidney disease, peripheral vascular disease, history of atrial fibrillation, status post ablation 1998, history of provoked DVT, hypertension, PVD, hyperlipidemia, type 2 diabetes mellitus, history of asbestosis, initial came to [facility] because he was altered. On previous evaluation, he was found to have intermittent confusion, so he was disoriented and combative. He was found to have elevated ammonia level. Today his ammonia level is 52. GI is on board, and this patient is on Xifaxan. Lactulose was stopped due to diarrhea. Currently, in TRCU for underlying deconditioned state, again rehabilitated. He has intermittent episodes of confusion but is somewhat stable. His MRI of the brain showed no acute intracranial abnormalities. EEG showed features consistent with bilateral cerebral dysfunction. No evidence of any epileptiform activity. He is following simple commands. He had some metabolic derangements seen on his labs today. He is on aspirin 81 mg and Pletal 50 mg p.o. b.i.d. for stroke as well as peripheral vascular disease prevention. No acute events overnight. PAST MEDICAL HISTORY: Atrial fibrillation, status post ablation in 1998; provoked DVT; hypertension; chronic kidney disease, stage IV; hyperlipidemia; peripheral vascular disease; type 2 diabetes mellitus; asbestosis. REVIEW OF SYSTEMS: A 14-point review of systems negative except as per HPI. FAMILY HISTORY: Noncontributory. ALLERGY: NO KNOWN DRUG ALLERGIES. SOCIAL HISTORY: Former smoker. No illicit drug abuse, smoking, or EtOH abuse. PHYSICAL EXAMINATION: VITAL SIGNS: Temperature 98.4, pulse rate 70, blood pressure 125/60, respirations 18, oxygen saturation is 97% on room air. GENERAL: The patient is sitting up in bed, in no acute distress. HEART: S1 and S2 normal, irregular rate and rhythm. No murmurs, rubs or gallops. LUNGS: Slightly decreased breath sounds but no adventitious sounds heard. ABDOMEN: Soft, nontender, nondistended. Bowel sounds present. EXTREMITIES: Has some erythema on the pretibial area with some small blisters on his right leg anteriorly. NEUROLOGIC: The patient is alert, oriented to person place, month, and year. Recall in 5 minutes is 0/3. Poor attention span, slow thought process. Cranial nerves II to XII intact. Motor exam: Moves all extremities equally. Slight increased tone throughout. decreased strength. Sensory exam: Decreased light touch and pinprick up to calves bilaterally. Decreased vibration to the toes. Proprioception is intact. DTRs are 2+ throughout, 1 at the knees, and absent at the ankles. Coordination: Coordination: [id number] intact. Gait is deferred for now. He has some mild asterixis when his hands are outstretched. LABORATORY DATA: Sodium 141, potassium 3.8, chloride 110, carbon dioxide 20, BUN of 42, creatinine 2.9, random glucose 80, ammonia level of 52. ASSESSMENT: This is a 71-year-old man with history of atrial fibrillation, status post ablation, provoked deep venous thrombosis, hypertension, chronic kidney disease stage IV, hyperlipidemia, peripheral vascular disease, type 2 diabetes mellitus, asbestosis was called for transient and confusional episodes. His altered mental status is secondary to metabolic encephalopathy following elevated ammonia. 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 His ammonia level was slightly elevated with 52. GI is on the case. He is on Xifaxan. RECOMMENDATION: 1. Frequent orientation throughout the day. His MRI of the brain was negative for any acute findings and EEG is negative for any seizures. 2. Continue with thiamine 100 mg p.o. b.i.d. for cognition. 3. Avoid sedative medications. 4. Continue PT and OT for gait dysfunction and deconditioned state, and poor balance. At this time delirium precautions should be intact. Continue current present medical management. No further neurological workup needed at this time. Thank you for this consult. Asad Shah MD
[2016-11-14] MEDS: LIRAGLUTIDE SC SCH (22:37)
[2016-11-15] MEDS: Sodium Chloride 0.45% 1,000 ML IV SCH ×3 (02:06→21:45)
--- NOTE | 2016-11-15 02:12 | PN ---
SUBJECTIVE: The patient is a 71-year-old male, who was admitted to [facility] on 11/10 with mental status changes. He had been discharged from [facility] the day before after being treated for volume overload, anasarca, shortness of breath, and leg pains. 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 His ammonia level was found to be elevated at 105. He was admitted with a diagnosis of metabolic encephalopathy. He had been treated with lactulose and his ammonia level is decreasing as the patient's mental status is increasing. Yesterday, he was transferred to the transitional care unit for continued therapy and ambulatory physical therapy. When seen today, his is at bedside. The patient was out in the [place]arcia receiving physical therapy, walking with a walker and doing quite well. He is awake, alert, oriented. He had previously been complaining of pain in the legs, however, this is not a problem at this time. His heart is regular. His lungs are clear. Extremities reveal +1 edema in the lower extremities bilaterally. This morning, his ammonia level is down to 52. His white blood cell count is 6.0, hemoglobin and hematocrit are 10.3 and 28.1 respectively. Sodium is 141, potassium 3.8, BUN is 42, and creatinine is 3.9. The patient is being followed by Dr. Dalton, the seo associate, by Dr. Mcgregor, the clinical fellow, as well as Dr. Shah, the neurologist, and Dr. Bonilla, the boiler setter. Dr. Bonilla is covering for Dr. Mejia. The patient was started on Xifaxan by Dr. Bonilla as the ammonia level is decreased and the patient is having diarrhea from the lactulose. I will discontinue the lactulose at this time. The patient is also having some difficulty sleeping. I will change the Ambien to Valium 5 mg to be given at bedtime. The patient will be re-evaluated in the morning, and we will continue to follow the patient closely. Jim Reyes MD
[2016-11-15] MEDS: Pantoprazole 40 mg EC Tab PO SCH (06:17)
[2016-11-15] MEDS: Levothyroxine 88 MCG TAB PO SCH (06:18)
[2016-11-15] MEDS: Insulin Reg-MEDIUM-Coverage SC SCH ×4 (07:14→21:46)
[2016-11-15] MEDS: Metoprolol Succinate 50 mg XL Tab PO SCH (08:22)
[2016-11-15] MEDS: Cilostazol 50 mg Tab UD PO SCH ×2 (09:58→17:23)
[2016-11-15] MEDS: Insulin Lispro (humaLOG) MIX 75/25(10 ml) SC SCH ×2 (10:04→17:21)
--- NOTE | 2016-11-15 14:48 | PN ---
SUBJECTIVE: The patient had been transferred to the TCU. He currently remained stable on low volume IV fluid hydration. The patient was switched to Xifaxan and lactulose was discontinued. His ammonia level continues to drop. The patient has less asterixis and is getting back to baseline levels. MEDICATIONS: Medication list reviewed. The patient is on Benadryl, amiodarone, Ecotrin, Victoza, insulin, Norvasc, PhosLo, Pletal, Protonix, half normal saline 60 an hour, Synthroid, Toprol, TriCor, Ultracet, vitamin B1 tablet, vitamin D, and Xifaxan. OBJECTIVE: VITAL SIGNS: Blood pressure 148/75, pulse 69, temperature 98.4 with a respiratory rate of 18. Yesterday's weight according to the family though not charted was 223 pounds. HEENT: Shows him to be normocephalic and atraumatic. Conjunctivae pink. Sclerae nonicteric. NECK: Supple. No neck vein distention. CHEST: Clear to auscultation and percussion. No rales, no rhonchi, no wheezing. CARDIOVASCULAR: Shows a regular rate and rhythm with 2 to 3/6 holosystolic murmur, left lower sternal border. No S3, no S4, no rub. ABDOMEN: Soft. Bowel sounds normal. No rebound, no guarding, no masses. No organomegaly noted. EXTREMITIES: Show no lower extremity edema. No cyanosis or clubbing. Diminished lower extremity pulses bilaterally. NEUROLOGIC: Shows him to be completely lucid. No level of confusion noted this morning. He has only very minimal asterixis of his upper extremity with his hands extended. LABORATORY DATA AND IMAGING: CBC today, white blood cell count 6.0, hemoglobin 10.3 with a platelet count of 111,000. Chemistries showed a sodium of 141, potassium 3.8, chloride 110 with a CO2 of 20, BUN 42 with a creatinine of 3.9. The patient's baseline BUN is in the upper 30 to lower 40 range with a baseline creatinine in the mid 3 range. He is slowly approaching baseline ranges with gentle IV fluid hydration. Glucose was 111. Calcium 9.3. Last ammonia level was 52. ASSESSMENT: 1. Acute renal failure superimposed on chronic kidney disease stage 3/4. With gentle IV fluid hydration, coming off aggressive diuresis, the patient's BUN and creatinine are slowly falling to baseline levels. I will likely continue IV fluid hydration perhaps 24 hours more, at which point in time, the patient should remain adequately hydrated with oral fluids and IV fluids may be discontinued. At this point in time, I will not restart diuretics back. As his weights appear to be at baseline low levels, in the 220 to 223 range. 2. History of NIDDM, the patient's sugar control is excellent on insulin. The patient will continue insulin plus Victoza. 3. History of hypothyroidism. Thyroid function levels have been normal. 4. History of anemia. Hemoglobin has remained stable above 10. No Procrit necessary. 5. Past history of atrial fibrillation, status post ablation therapy. The patient is in a normal sinus rhythm at present. 6. Elevated ammonia level. The patient was seen by GI and was felt not to have any significant chronic liver disease. For right now, he will remain on Xifaxan to try and keep his ammonia level as close to normal as possible. Lactulose was discontinued. PLAN: 1. Again, discussed with the patient's entire family and the patient in detail. He appears to be making progress, but clinically and biochemically. We will recheck ammonia levels tomorrow along with labs. His creatinine is in the mid 3 range. IV fluids may be discontinued. His BUN is currently at baseline range. 2. We will continue to hold diuretic therapy as his weights have remained stable and he has no significant lower extremity edema. 3. Continue rehabilitation and followup in the TCU. 4. Obtain daily weights. Manpreet Dalton MD
[2016-11-15] MEDS: LIRAGLUTIDE SC SCH (21:46)
--- NOTE | 2016-11-16 01:27 | PN ---
DATE: 11/15/2016 SUBJECTIVE: This patient was seen and evaluated earlier, the patient's family was at bedside. The patient appears more alert. PHYSICAL EXAMINATION: VITAL SIGNS: Temperature is 98.4, pulse is 66, and blood pressure is 125/62. HEENT: Atraumatic and anicteric. NECK: Supple. HEART: S1 and S2 heard. LUNGS: Bilateral air entry present. ABDOMEN: Soft and there was no tenderness. EXTREMITIES: Mild erythema present in the right leg. LABORATORY DATA: Hemoglobin is 10.3, hematocrit is 28.1, WBC is 86.0, and platelets are 111. There is no recent labs today. The patient's ammonia yesterday was 52. IMPRESSION: This 71-year-old patient was recently discharged from the hospital and was readmitted with a change of mental status, confusion. The patient was found to have elevated ammonia level and also may elevated liver function tests. The patient was on lactulose, have developed diarrhea, it was discontinued and presently on Xifaxan. He appears more alert and ambulating. The etiology for the chronic liver disease is unclear. The imaging studies done in the past, CT done without contrast did not suggest any obvious cirrhosis. However, in view of this thrombocytopenia and elevated ammonia level, the concern is still possible cirrhosis to be considered. In this setting, the patient had history of colon polyp and does not having an endoscopy done recently. RECOMMENDATIONS: We would recommend: 1. Continue the Xifaxan. 2. Follow up of the ammonia level. 3. Hepatitis profile and also autoimmune markers to further evaluate the chronic liver disease. 4. The patient may benefit from the elective endoscopy to evaluate for varices. His other comorbidities include diabetes mellitus, peripheral vascular disease, chronic kidney disease, asbestosis, and hypertension. Thank you very much for allowing us to participate in the care of the patient. We will continue to closely follow up with care and suggest further management based on the clinical course. Delbert Mejia MD
[2016-11-16] MEDS: Levothyroxine 88 MCG TAB PO SCH (05:56)
[2016-11-16] MEDS: Pantoprazole 40 mg EC Tab PO SCH (05:57)
[2016-11-16 07:21] LABS: HEMATOCRIT 28.5 % (42.0-52.0); MEAN CELL VOLUME 88.2 fl (80.0-105.0); MEAN CORPUSCULAR HEMOGLOBIN 32.5 pg (25.0-35.0); MEAN CORPUSCULAR HGB CONC 36.8 g/dl (31.0-37.0); MEAN PLATELET VOLUME 11.5 fl (7.0-11.0); RED CELL DISTRIBUTION WIDTH 16.1 % (11.5-14.5); WHITE BLOOD COUNT 5.6 10^3/ul (4.5-11.0)
[2016-11-16 07:30] LABS: INR 1.18 (0.93-1.08)
[2016-11-16 07:57] LABS: BILIRUBIN,TOTAL 1.1 mg/dL (0.2-1.3); CALCIUM 8.9 mg/dL (8.4-10.5); MAGNESIUM 1.8 mg/dL (1.7-2.2); PHOSPHOROUS 3.3 mg/dL (2.5-4.5); POTASSIUM 3.8 mmol/L (3.6-5.0); TOTAL PROTEIN 6.7 g/dL (5.8-8.3)
[2016-11-16] MEDS: Insulin Reg-MEDIUM-Coverage SC SCH ×4 (07:57→22:16)
[2016-11-16] MEDS: Metoprolol Succinate 50 mg XL Tab PO SCH (08:40)
[2016-11-16] MEDS: Cilostazol 50 mg Tab UD PO SCH ×2 (10:07→17:32)
[2016-11-16] MEDS: Insulin Lispro (humaLOG) MIX 75/25(10 ml) SC SCH ×2 (10:12→17:28)
--- NOTE | 2016-11-16 20:47 | PN ---
SUBJECTIVE: The patient is currently seen in the TCU, lying comfortable in bed. IV fluids are running. His BUN and creatinine have returned to baseline levels with a BUN of 36 and a creatinine of 3.4. Of note, his ammonia level is high at 97 today. Lactulose was discontinued and Xifaxan was started. The patient is being followed by GI. He no longer has asterixis. MEDICATIONS: Medication list reviewed. The patient is currently on Benadryl, amiodarone, Ecotrin, Victoza, insulin, Norvasc, PhosLo, Pletal, Protonix, half-normal saline which will be discontinued, Synthroid, Toprol, TriCor, Ultracet p.r.n., vitamin B1 and vitamin D. OBJECTIVE: GENERAL: The patient states his weight today is 222-1/2 pounds, stable. VITAL SIGNS: Blood pressure 133/72, temperature 98.2, respiratory rate 20 with a pulse of 72, pulse ox is 97%. HEENT: Exam shows him to be normocephalic and atraumatic. Conjunctivae are pale. Sclerae are nonicteric. NECK: Supple. No neck vein distention. CHEST: Clear to auscultation and percussion. No rales, no rhonchi, no wheezing. CARDIOVASCULAR: Shows a regular rate and rhythm with a holosystolic murmur, 2 to 3/6 left lower sternal border. No S3, no S4, no rub. ABDOMEN: Soft. Bowel sounds normal. No rebound, no guarding, no masses. No organomegaly noted. No tenderness over his right upper quadrant EXTREMITIES: Show no lower extremity edema. No cyanosis or clubbing. NEUROLOGIC: Shows complete resolution of his asterixis. The patient is alert, oriented x3 with no gross focal, motor or sensory deficits noted. LABORATORY DATA AND IMAGING: CBC today, white blood cell count 5.6, hemoglobin 10.5, stable; platelet count of 114,000. Coags PT 12.7 with an INR of 1.18, PTT 32. Chemistries showed sodium 138, potassium 3.8, chloride is 108 with a CO2 of 19, BUN is 36 with a creatinine of 3.4, which are back to baseline levels. Glucose is 148. Calcium 8.9, phosphorus 3.3, mag 1.8. Ammonia level is higher today at 97 up from yesterdays' 52. Albumin level is 3.3. Liver serologies were all negative. Hepatitis A negative, hepatitis B surface antigen and hepatitis B core antibody negative; hepatitis C antibody negative. ASSESSMENT: 1. Status post acute renal failure. The patient is now back to baseline. Chronic kidney disease, stage III/IV. The patient achieved this with gentle IV fluid hydration, he was aggressively diuresed during his previous admission to the hospital with over 20 pounds of fluid removed. With the addition of IV fluids in a controlled manner, the patient was able to maintain his bodyweight, he has no edema, no CHF and his BUN and creatinine have returned back to baseline. 2. History of non-insulin dependent diabetes mellitus. The patient's sugar control remains controlled on Victoza and insulin. 3. History of hypothyroidism. Thyroid function tests have been normal. 4. History of anemia. Hemoglobin stable from 10 to 11 range likely secondary to chronic kidney disease. No Procrit necessary. 5. History of atrial fibrillation, status post ablation therapy. The patient appears to be in a normal sinus rhythm. 6. Elevated ammonia levels. Underlying liver disease suspect. The patient is being evaluated by gastroenterology. Perhaps the combination use of lactulose together with Xifaxan to further lower his ammonia level. His asterixis has resolved. PLAN: 1. Continue to monitor labs closely in the TCU. 2. Await for the GI evaluation workup and recommendations. 3. IV fluids to be discontinued. At this point in time, no diuretic therapy needs to be restarted as he appears to be euvolemic and he has had no weight gain with IV fluid hydration over the last several days. 4. Continue rehabilitation in the TCU. Manpreet Dalton MD
--- NOTE | 2016-11-16 20:53 | CP.PCM.PN ---
Subjective - Date & Time of Evaluation Date of Evaluation: 11/16/16 Time of Evaluation: 18:00 Objective - Vital Signs/Intake and Output Vital Signs (last 24 hours): Temp Pulse Resp BP Pulse Ox 98.2 F 70 14 127/65 97 11/16/16 16:09 11/16/16 17:32 11/16/16 16:09 11/16/16 17:32 11/16/16 06:39 - Medications Medications: Current Medications Amiodarone HCl (Cordarone) 200 mg PO DAILY MOHINDER PRN Reason: Protocol Last Admin: 11/16/16 10:01 Dose: 200 mg Amlodipine Besylate (Norvasc) 5 mg PO BID MOHINDER PRN Reason: Protocol Last Admin: 11/16/16 17:32 Dose: 5 mg Aspirin (Ecotrin) 81 mg PO 0800 MOHINDER PRN Reason: Protocol Last Admin: 11/16/16 08:40 Dose: 81 mg Calcium Acetate (Phoslo) 667 mg PO WM MOHINDER PRN Reason: Protocol Last Admin: 11/16/16 17:31 Dose: 667 mg Cholecalciferol (Vitamin D) 5,000 iu PO DAILY MOHINDER PRN Reason: Protocol Last Admin: 11/16/16 10:09 Dose: 5,000 iu Cilostazol (Pletal) 50 mg PO BID MOHINDER PRN Reason: Protocol Last Admin: 11/16/16 17:32 Dose: 50 mg Diphenhydramine HCl (Benadryl) 50 mg PO HS [facility] Last Admin: 11/15/16 21:45 Dose: 50 mg Fenofibrate (Tricor) 145 mg PO DAILY MOHINDER PRN Reason: Protocol Last Admin: 11/16/16 10:09 Dose: 145 mg Home Med (Home Med) 1.8 unit SC HS MOHINDER PRN Reason: Protocol Last Admin: 11/15/16 21:46 Dose: 1.8 unit Insulin Human Regular (Humulin R Med) 0 units SC ACHS MOHINDER PRN Reason: Protocol Last Admin: 11/16/16 17:28 Dose: 3 units Insulin Lispro Protam/Lispro Human (Humalog Mix 75/25) 25 units SC BID MOHINDER PRN Reason: Protocol Last Admin: 11/16/16 17:28 Dose: 25 units Lactulose (Enulose) 20 gm PO 1800 MOHINDER PRN Reason: Protocol Last Admin: 11/16/16 18:33 Dose: 20 gm Levothyroxine Sodium (Synthroid) 88 mcg PO 0600 MOHINDER PRN Reason: Protocol Last Admin: 11/16/16 05:56 Dose: 88 mcg Metoprolol Succinate (Toprol Xl) 50 mg PO BRK MOHINDER PRN Reason: Protocol Last Admin: 11/16/16 08:40 Dose: 50 mg Pantoprazole Sodium (Protonix Ec Tab) 40 mg PO 0600 MOHINDER PRN Reason: Protocol Last Admin: 11/16/16 05:57 Dose: 40 mg Rifaximin (Xifaxan) 550 mg PO BID MOHINDER PRN Reason: Protocol Last Admin: 11/16/16 17:31 Dose: 550 mg Thiamine HCl (Vitamin B1 Tab) 100 mg PO BID MOHINDER PRN Reason: Protocol Last Admin: 11/16/16 17:33 Dose: 100 mg Tramadol/Acetaminophen (Ultracet 37.5/325 Mg) 2 tab PO Q12H PRN; Protocol PRN Reason: Pain, moderate (4-7) Last Admin: 11/13/16 22:46 Dose: 2 tab - Labs Labs: 11/16/16 07:00 11/16/16 07:00 PT 12.7 Seconds (9.9-11.8) H 11/16/16 07:00 INR 1.18 (0.93-1.08) H 11/16/16 07:00 APTT 32.0 Seconds (23.7-30.8) H 11/16/16 07:00 Assessment and Plan - Assessment and Plan (Free Text) Assessment: This patient was seen and evaluated earlier. This is an addendum to the GI progress report dictated by Darline Hannah APN. ammonia level is now elevated again. Etiology of his chronic liver disease is unclear. Requested for sonogram autoimmune markers and hepatitis profile On examination patient does not have any asterixis alert oriented at the present time Would restart lactulose at 30 cc daily first dose now. We'll also continue his rifaximin. Patient had significant diarrhea while on lactulose before. However we need to restart it as the patient's ammonia level is significantly high. We will titrate the dose based on the patient's bowel movements
--- NOTE | 2016-11-16 21:37 | PN ---
DATE: 11/16/2016 Today is day #3 in transitional care unit for the patient. He has already been oriented to the activities of the unit. He is being monitored closely by renal consultants, Dr. Dalton, as well as GI. He is overall doing well. His H and H is holding steady at 10 and 28. Coags are unremarkable. Chemistries show his creatinine has improved a slight bit to 3.9 with a BUN of 36. Hepatitis serology for hepatitis A, B and C are negative. PHYSICAL EXAMINATION: VITAL SIGNS: Otherwise unremarkable. Heart rate is not tachycardic, running in the high 60s to 70s. He is afebrile with blood pressure in the 120 to 130/70. He is comfortable and his meds are being adjusted as his fluid and electrolyte status is monitored closely. His medications included Benadryl for sleep, amiodarone, aspirin, Lactulose, insulin, amlodipine, PhosLo, Pletal, Protonix, Synthroid, metoprolol, TriCor, tramadol, vitamin B, vitamin D and Xifaxan for hepatic encephalopathy. Berto Reyes MD
--- NOTE | 2016-11-16 22:19 | CP.PCM.PN ---
Subjective - Date & Time of Evaluation Date of Evaluation: 11/16/16 Time of Evaluation: 17:40 - Subjective Subjective: Seen and examined at bedside late afternoon. Chart reviewed. No acute overnight events or complaints. No recent BM. Family at bedside. Denies N/V, abdominal pain. No acute distress, ammonia level today is 95. Objective - Vital Signs/Intake and Output Vital Signs (last 24 hours): Temp Pulse Resp BP Pulse Ox 98.2 F 70 14 127/65 97 11/16/16 16:09 11/16/16 17:32 11/16/16 16:09 11/16/16 17:32 11/16/16 06:39 - Medications Medications: Current Medications Amiodarone HCl (Cordarone) 200 mg PO DAILY MOHINDER PRN Reason: Protocol Last Admin: 11/16/16 10:01 Dose: 200 mg Amlodipine Besylate (Norvasc) 5 mg PO BID MOHINDER PRN Reason: Protocol Last Admin: 11/16/16 17:32 Dose: 5 mg Aspirin (Ecotrin) 81 mg PO 0800 MOHINDER PRN Reason: Protocol Last Admin: 11/16/16 08:40 Dose: 81 mg Calcium Acetate (Phoslo) 667 mg PO WM MOHINDER PRN Reason: Protocol Last Admin: 11/16/16 17:31 Dose: 667 mg Cholecalciferol (Vitamin D) 5,000 iu PO DAILY MOHINDER PRN Reason: Protocol Last Admin: 11/16/16 10:09 Dose: 5,000 iu Cilostazol (Pletal) 50 mg PO BID MOHINDER PRN Reason: Protocol Last Admin: 11/16/16 17:32 Dose: 50 mg Diphenhydramine HCl (Benadryl) 50 mg PO HS MOHINDER Last Admin: 11/15/16 21:45 Dose: 50 mg Fenofibrate (Tricor) 145 mg PO DAILY MOHINDER PRN Reason: Protocol Last Admin: 11/16/16 10:09 Dose: 145 mg Home Med (Home Med) 1.8 unit SC HS MOHINDER PRN Reason: Protocol Last Admin: 11/15/16 21:46 Dose: 1.8 unit Insulin Human Regular (Humulin R Med) 0 units SC ACHS MOHINDER PRN Reason: Protocol Last Admin: 11/16/16 17:28 Dose: 3 units Insulin Lispro Protam/Lispro Human (Humalog Mix 75/25) 25 units SC BID MOHINDER PRN Reason: Protocol Last Admin: 11/16/16 17:28 Dose: 25 units Lactulose (Enulose) 20 gm PO 1800 MOHINDER PRN Reason: Protocol Last Admin: 11/16/16 18:33 Dose: 20 gm Levothyroxine Sodium (Synthroid) 88 mcg PO 0600 MOHINDER PRN Reason: Protocol Last Admin: 11/16/16 05:56 Dose: 88 mcg Metoprolol Succinate (Toprol Xl) 50 mg PO BRK MOHINDER PRN Reason: Protocol Last Admin: 11/16/16 08:40 Dose: 50 mg Pantoprazole Sodium (Protonix Ec Tab) 40 mg PO 0600 MOHINDER PRN Reason: Protocol Last Admin: 11/16/16 05:57 Dose: 40 mg Rifaximin (Xifaxan) 550 mg PO BID MOHINDER PRN Reason: Protocol Last Admin: 11/16/16 17:31 Dose: 550 mg Thiamine HCl (Vitamin B1 Tab) 100 mg PO BID MOHINDER PRN Reason: Protocol Last Admin: 11/16/16 17:33 Dose: 100 mg Tramadol/Acetaminophen (Ultracet 37.5/325 Mg) 2 tab PO Q12H PRN; Protocol PRN Reason: Pain, moderate (4-7) Last Admin: 11/13/16 22:46 Dose: 2 tab - Labs Labs: 11/16/16 07:00 11/16/16 07:00 PT 12.7 Seconds (9.9-11.8) H 11/16/16 07:00 INR 1.18 (0.93-1.08) H 11/16/16 07:00 APTT 32.0 Seconds (23.7-30.8) H 11/16/16 07:00 - Constitutional Appears: No Acute Distress - Head Exam Head Exam: NORMOCEPHALIC - Eye Exam Eye Exam: Normal appearance. absent: Scleral icterus - ENT Exam ENT Exam: Mucous Membranes Moist - Neck Exam Neck Exam: Normal Inspection - Respiratory Exam Respiratory Exam: NORMAL BREATHING PATTERN. absent: Respiratory Distress - Cardiovascular Exam Cardiovascular Exam: +S1, +S2 - GI/Abdominal Exam GI & Abdominal Exam: Soft, Normal Bowel Sounds. absent: Guarding, Tenderness, Organomegaly, Rebound - Extremities Exam Extremities Exam: Normal Capillary Refill. absent: Calf Tenderness, Pedal Edema - Neurological Exam Neurological Exam: Alert, Awake, Oriented x3 (no axterxis), Reflexes Normal - Skin Skin Exam: Dry, Warm Assessment and Plan - Assessment and Plan (Free Text) Assessment: Assessment: Altered mental status Hepatic encephalopathy Chronic liver disease, etiology unclear, CT scan with no obvious cirrhosis History of colon polyps Plan: Give stat dose of lactulose and continue daily Trend ammonia level check autoimmune marker, see orders abdominal US in am May benefit from elective endoscopy to evaluate for varices, discuss with patient and family at bedside. Seen and discussed w/ Dr. Mejia.
[2016-11-16] MEDS: LIRAGLUTIDE SC SCH (23:52)
[2016-11-17] MEDS: Levothyroxine 88 MCG TAB PO SCH (05:21)
[2016-11-17] MEDS: Pantoprazole 40 mg EC Tab PO SCH (05:21)
[2016-11-17 06:40] LABS: HEMATOCRIT 29.8 % (42.0-52.0); MEAN CELL VOLUME 88.4 fl (80.0-105.0); MEAN CORPUSCULAR HEMOGLOBIN 32.9 pg (25.0-35.0); MEAN CORPUSCULAR HGB CONC 37.2 g/dl (31.0-37.0); RED CELL DISTRIBUTION WIDTH 16.2 % (11.5-14.5); WHITE BLOOD COUNT 5.4 10^3/ul (4.5-11.0)
[2016-11-17] MEDS: Insulin Reg-MEDIUM-Coverage SC SCH ×4 (06:54→22:06)
[2016-11-17 06:55] LABS: ALB/GLOB RATIO 0.9 (1.1-1.8); BILIRUBIN,TOTAL 1.3 mg/dL (0.2-1.3); CALCIUM 9.2 mg/dL (8.4-10.5); POTASSIUM 3.8 mmol/L (3.6-5.0); TOTAL PROTEIN 6.9 g/dL (5.8-8.3)
[2016-11-17] MEDS: Metoprolol Succinate 50 mg XL Tab PO SCH (08:24)
--- NOTE | 2016-11-17 10:57 | CP.PCM.PN ---
Subjective - Date & Time of Evaluation Date of Evaluation: 11/17/16 Time of Evaluation: 09:00 - Subjective Subjective: Seen and examined at the bedside earlier today. The patient had abdominal ultrasound this morning, reports still pending. He tolerated oral lactulose last night and reported having 3 bowel movements, no reports of melena or bright red blood per rectum. Denies nausea, vomiting, or abdominal pain. Daughter visiting at bedside.ammonia level improved this morning from 97 to 59. Objective - Vital Signs/Intake and Output Vital Signs (last 24 hours): Temp Pulse Resp BP Pulse Ox 98.2 F 65 14 136/61 97 11/16/16 16:09 11/17/16 08:24 11/16/16 16:09 11/17/16 08:24 11/16/16 06:39 - Medications Medications: Current Medications Amiodarone HCl (Cordarone) 200 mg PO DAILY MOHINDER PRN Reason: Protocol Last Admin: 11/16/16 10:01 Dose: 200 mg Amlodipine Besylate (Norvasc) 5 mg PO BID MOHINDER PRN Reason: Protocol Last Admin: 11/16/16 17:32 Dose: 5 mg Aspirin (Ecotrin) 81 mg PO 0800 MOHINDER PRN Reason: Protocol Last Admin: 11/17/16 08:23 Dose: 81 mg Calcium Acetate (Phoslo) 667 mg PO WM MOHINDER PRN Reason: Protocol Last Admin: 11/17/16 08:23 Dose: 667 mg Cholecalciferol (Vitamin D) 5,000 iu PO DAILY MOHINDER PRN Reason: Protocol Last Admin: 11/16/16 10:09 Dose: 5,000 iu Cilostazol (Pletal) 50 mg PO BID MOHINDER PRN Reason: Protocol Last Admin: 11/16/16 17:32 Dose: 50 mg Diphenhydramine HCl (Benadryl) 50 mg PO HS MOHINDER Last Admin: 11/16/16 22:16 Dose: 50 mg Fenofibrate (Tricor) 145 mg PO DAILY MOHINDER PRN Reason: Protocol Last Admin: 11/16/16 10:09 Dose: 145 mg Home Med (Home Med) 1.8 unit SC HS MOHINDER PRN Reason: Protocol Last Admin: 11/16/16 23:52 Dose: Not Given Insulin Human Regular (Humulin R Med) 0 units SC ACHS MOHINDER PRN Reason: Protocol Last Admin: 11/17/16 06:54 Dose: Not Given Insulin Lispro Protam/Lispro Human (Humalog Mix 75/25) 25 units SC BID MOHINDER PRN Reason: Protocol Last Admin: 11/16/16 17:28 Dose: 25 units Lactulose (Enulose) 20 gm PO 1800 MOHINDER PRN Reason: Protocol Last Admin: 11/16/16 18:33 Dose: 20 gm Levothyroxine Sodium (Synthroid) 88 mcg PO 0600 MOHINDER PRN Reason: Protocol Last Admin: 11/17/16 05:21 Dose: 88 mcg Metoprolol Succinate (Toprol Xl) 50 mg PO BRK MOHINDER PRN Reason: Protocol Last Admin: 11/17/16 08:24 Dose: 50 mg Pantoprazole Sodium (Protonix Ec Tab) 40 mg PO 0600 MOHINDER PRN Reason: Protocol Last Admin: 11/17/16 05:21 Dose: 40 mg Rifaximin (Xifaxan) 550 mg PO BID MOHINDER PRN Reason: Protocol Last Admin: 11/16/16 17:31 Dose: 550 mg Thiamine HCl (Vitamin B1 Tab) 100 mg PO BID MOHINDER PRN Reason: Protocol Last Admin: 11/16/16 17:33 Dose: 100 mg Tramadol/Acetaminophen (Ultracet 37.5/325 Mg) 2 tab PO Q12H PRN; Protocol PRN Reason: Pain, moderate (4-7) Last Admin: 11/13/16 22:46 Dose: 2 tab - Labs Labs: 11/17/16 06:30 11/17/16 06:30 PT 12.7 Seconds (9.9-11.8) H 11/16/16 07:00 INR 1.18 (0.93-1.08) H 11/16/16 07:00 APTT 32.0 Seconds (23.7-30.8) H 11/16/16 07:00 - Constitutional Appears: No Acute Distress - Head Exam Head Exam: NORMOCEPHALIC - Eye Exam Eye Exam: Normal appearance. absent: Scleral icterus - ENT Exam ENT Exam: Mucous Membranes Moist - Neck Exam Neck Exam: Normal Inspection - Respiratory Exam Respiratory Exam: Clear to Ausculation Bilateral, NORMAL BREATHING PATTERN. absent: Respiratory Distress - Cardiovascular Exam Cardiovascular Exam: +S1, +S2 - GI/Abdominal Exam GI & Abdominal Exam: Soft, Normal Bowel Sounds. absent: Guarding, Tenderness, Rebound - Extremities Exam Extremities Exam: Normal Capillary Refill. absent: Calf Tenderness, Pedal Edema - Neurological Exam Neurological Exam: Alert, Awake, Oriented x3 (no asterxis) - Skin Skin Exam: Dry (Belen), Warm Assessment and Plan - Assessment and Plan (Free Text) Assessment: Assessment: S/P Altered mental status Hepatic encephalopathy Chronic liver disease, etiology unclear, CT scan with no obvious cirrhosis History of colon polyps Plan: continue lactulose daily, monitor stools Trend ammonia level Follow-up autoimmune markers Follow-up abdominal US final report May benefit from elective endoscopy to evaluate for varices, discuss with patient and family at bedside. Seen and discussed w/ Dr. Mejia.
[2016-11-17] MEDS: Insulin Lispro (humaLOG) MIX 75/25(10 ml) SC SCH ×2 (10:58→17:43)
[2016-11-17] MEDS: Cilostazol 50 mg Tab UD PO SCH ×2 (10:59→17:45)
--- NOTE | 2016-11-17 13:24 | US ---
HISTORY: Elevated LFT COMPARISON: CT abdomen and pelvis without contrast 06/19/2016 TECHNIQUE: Sonographic evaluation of the abdomen. FINDINGS: LIVER: Measures 19.5 cm. The liver is enlarged Normal echogenicity of the liver parenchyma. No mass. No intrahepatic bile duct dilatation. GALLBLADDER: Nonvisualized consistent with a prior cholecystectomy COMMON BILE DUCT: Measures 5.9 mm. No stones. No dilatation. PANCREAS: Unremarkable as visualized. No mass. No ductal dilatation. RIGHT KIDNEY: Measures 11.6 x 4.3 x 5.9cm. Normal echogenicity. No calculus, mass, or hydronephrosis. LEFT KIDNEY: Measures 10.9 x 4.7 x 6.0cm. Normal echogenicity. No calculus, mass, or hydronephrosis. The CT prior referenced 7 mm stone in left lower renal pole is not appreciated on this exam SPLEEN: Sprain is enlarged at 16.3 x 6.8 x 6.9 No mass. AORTA: No aneurysmal dilatation. IVC: Unremarkable. OTHER FINDINGS: None. IMPRESSION: Hepatomegaly. Splenomegaly. Status postcholecystectomy The CT prior referenced 7 mm stone in left lower renal pole is not appreciated on this exam
--- NOTE | 2016-11-17 14:22 | PN ---
DATE: 11/17/2016 SUBJECTIVE: The patient is seen sitting in chair. is at bedside. He is awake, he is alert, is comfortable. He denies any pain. He denies any shortness of breath. PHYSICAL EXAMINATION GENERAL: An elderly male sitting in chair. VITAL SIGNS: Blood pressure is 144/75, heart rate is 66, respiratory rate is 20, and temperature is 98.7. HEENT: Normocephalic and atraumatic. NECK: Supple and no JVD. LUNGS: Bilateral equal entry, no rales. CARDIAC: S1 and S2, regular rate and rhythm. No murmur and no rub. ABDOMEN: Obese, distended, soft, and nontender. Bowel sounds present. EXTREMITIES: No lower extremity edema, dressing of the left foot. INTAKE AND OUTPUT: Not charted. LABORATORY DATA: WBC of 5.4, hemoglobin of 11.1, hematocrit of 29.8, and platelets of 109. Sodium of 140, potassium of 3.8, chloride of 110, CO2 of 18, BUN of 37, creatinine of 3.4, and glucose of 99. Calcium of 9.2, phosphorus of 3.3, and albumin of 3.3. Hepatitis negative. RADIOLOGIC DATA: Ultrasound of the abdomen: Right kidney 11.6 cm, left kidney 10.9 cm hepatomegaly, splenomegaly. ASSESSMENT AND PLAN: 1. Resolving acute kidney injury. 2. Underlying chronic kidney disease stage IV. 3. Anemia of chronic kidney disease. 4. Ass-niwcrep-roatcqdhs diabetes mellitus. 5. Hypertension. 6. Hypothyroidism. 7. Atrial fibrillation. 8. Hyperammonemia. PLAN 1. Continue to monitor labs. 2. Off IV FLUIDS 3. Continue physical therapy. 4. Follow up GI recommendations. 5. Continue lactulose and rifaximin. Selina Garcia MD
[2016-11-17] MEDS: LIRAGLUTIDE SC SCH (22:12)
--- NOTE | 2016-11-18 00:01 | PN ---
DATE: 11/17/2016 SUBJECTIVE: The patient is a 71-year-old male who was admitted to [facility] on 11/10/2016, with mental status changes. He was found to have elevated ammonia level. He had just been discharged to home to be treated for congestive heart failure. He is also noted to have stage III/IV chronic renal disease, hypertension, insulin dependent diabetes, and peripheral vascular disease. The patient was treated with lactulose during his hospital stay. The ammonia levels came down to the low 50s. The patient was then started on Xifaxan by Dr. Bonilla. The lactulose was then discontinued. The patient is being followed also by Dr. Dalton for his chronic renal failure. This morning his BUN is 37 and his creatinine is 3.4, which is on the lower side of baseline for this patient. When seeing the patient is awake, alert, and oriented. He is very happy. He is in good spirits. He feels he is doing well at physical therapy. His PT/INR is at 1.18. He had been taking warfarin for a history of atrial fibrillation in the past; however, it does not appear on his medication list at this time. We will consider resuming the warfarin in the morning. We are continuing to encourage physical therapy. Jim Reyes MD MTDD
[2016-11-18] MEDS: Levothyroxine 88 MCG TAB PO SCH (05:48)
[2016-11-18] MEDS: Pantoprazole 40 mg EC Tab PO SCH (05:48)
[2016-11-18] MEDS: Insulin Reg-MEDIUM-Coverage SC SCH ×4 (08:04→22:31)
[2016-11-18] MEDS: Metoprolol Succinate 50 mg XL Tab PO SCH (08:05)
[2016-11-18] MEDS: Cilostazol 50 mg Tab UD PO SCH ×2 (11:33→17:44)
[2016-11-18] MEDS: Insulin Lispro (humaLOG) MIX 75/25(10 ml) SC SCH ×2 (11:50→17:42)
[2016-11-18 12:04] LABS: BASO # 0.05 K/mm3 (0.0-2.0); BASO % 0.8 % (0.0-3.0); EOS # 0.2 (0.0-0.7); EOS % 3.9 % (1.5-5.0); GRAN # 3.94 (1.4-6.5); GRAN % 64.8 % (50.0-68.0); HEMATOCRIT 32.3 % (42.0-52.0); LYMPH # 1.2 (1.2-3.4); LYMPH % 19.5 % (22.0-35.0); MEAN CELL VOLUME 89.5 fl (80.0-105.0); MEAN CORPUSCULAR HGB CONC 36.8 g/dl (31.0-37.0); MEAN PLATELET VOLUME 11.6 fl (7.0-11.0); MONO # 0.7 (0.1-0.6); RED CELL DISTRIBUTION WIDTH 16.1 % (11.5-14.5); WHITE BLOOD COUNT 6.1 10^3/ul (4.5-11.0)
[2016-11-18 12:08] LABS: INR 1.13 (0.93-1.08)
[2016-11-18 12:10] LABS: BILIRUBIN,TOTAL 1.8 mg/dL (0.2-1.3); CALCIUM 9.9 mg/dL (8.4-10.5); MAGNESIUM 2.1 mg/dL (1.7-2.2); POTASSIUM 4.3 mmol/L (3.6-5.0); TOTAL PROTEIN 8.4 g/dL (5.8-8.3)
--- NOTE | 2016-11-18 14:29 | PN ---
DATE: 11/18/2016 SUBJECTIVE: The patient is seen sitting in chair. He is awake, he is alert, is comfortable. He denies any pain, shortness of breath. PHYSICAL EXAMINATION GENERAL: Elderly male sitting in chair. VITAL SIGNS: Blood pressure 125/59, heart rate 60, respiratory rate 18, temperature 98.4. HEENT: Normocephalic, atraumatic. NECK: Supple, no JVD. LUNGS: Bilateral equal entry, no rales. CARDIAC: S1 and S2. Regular rate and rhythm. No murmur, no rub. ABDOMEN: Obese, distended, soft, nontender, bowel sounds present. EXTREMITIES: No lower extremity edema. Intake and output not charted. LABORATORY DATA: WBC 6.1, hemoglobin 11.9, hematocrit 32, platelets 137. Sodium 139, potassium 4.3, chloride 107, CO2 of 18, BUN 39, creatinine 3.5, glucose 223, calcium 9.9, phosphorus not checked, magnesium 2.1, total bili 1.8, AST 62, ALT 27. PAIGE negative. Hepatitis profile negative. Current medications list reviewed. ASSESSMENT/PLAN 1. Stable chronic kidney disease, stage IV. 2. Elevated bilirubin/ammonia 3. Hepatomegaly/splenomegaly 4. Noninsulin dependent diabetes mellitus. 5. Hypertension. 6. Atrial fibrillation. 7. Hypothyroidism. PLAN 1. Monitor daily labs. 2. Continue lactulose and rifaximin per GI. 3. Closely monitor LFTs/bilirubin Selina Garcia MD
[2016-11-18] MEDS: LIRAGLUTIDE SC SCH (22:33)
--- NOTE | 2016-11-19 00:09 | PN ---
DATE: 11/18/2016 SUBJECTIVE: The patient was seen and evaluated earlier. PHYSICAL EXAMINATION GENERAL: Appears more alert. VITAL SIGNS: Temperature 98.4, blood pressure 126/59, pulse 60, respirations is 18. HEENT: Atraumatic. Anicteric. NECK: Supple. HEART: S1 and S2 heard. LUNGS: Bilateral air entry present. ABDOMEN: Soft. No mass palpable. No tenderness. EXTREMITIES: No edema. No cyanosis. LABORATORY DATA: At the time of examination, the labs were not done, which was requested for the labs. IMPRESSION: 1. Hepatic encephalopathy secondary to the probable cirrhosis, etiology unclear, probable nonalcoholic steatohepatitis to be considered. 2. Chronic kidney disease, stage IV. 3. Diabetes mellitus. 4. History of atrial fibrillation. 5. Kidney stones. Ultrasound scan of the abdomen reviewed, which revealed statu post cholecystectomy, normal common bile duct. RECOMMENDATION: Would reasonable to consider MRI to rule out any focal hepatic lesion. The patient has been on amiodarone for longtime for atrial fibrillation. In view of the hepatic dysfunction, we will discuss with the cardiology regarding the amiodarone. The patient is presently on Xifaxan and also once a day lactulose. We will titrate the dose according to the labs. Thank you very much for allowing us to participate in the care of the patient. Delbert Mejia MD
[2016-11-19] MEDS: Levothyroxine 88 MCG TAB PO SCH (06:04)
[2016-11-19] MEDS: Pantoprazole 40 mg EC Tab PO SCH (06:04)
[2016-11-19] MEDS: Insulin Reg-MEDIUM-Coverage SC SCH ×4 (08:39→23:09)
[2016-11-19] MEDS: Metoprolol Succinate 50 mg XL Tab PO SCH (09:16)
[2016-11-19] MEDS: Cilostazol 50 mg Tab UD PO SCH ×2 (09:27→18:07)
[2016-11-19] MEDS: Insulin Lispro (humaLOG) MIX 75/25(10 ml) SC SCH ×2 (11:58→18:05)
[2016-11-19 13:44] LABS: BILIRUBIN,TOTAL 1.6 mg/dL (0.2-1.3); CALCIUM 9.5 mg/dL (8.4-10.5); POTASSIUM 4.2 mmol/L (3.6-5.0); TOTAL PROTEIN 7.3 g/dL (5.8-8.3)
[2016-11-19] MEDS: LIRAGLUTIDE SC SCH (23:08)
[2016-11-20 01:06] LABS: LKM-1 Ab (IgG) <=20.0 U (<=20.0)
--- NOTE | 2016-11-20 01:17 | PN ---
DATE: 11/19/2016 SUBJECTIVE: The patient was seen, walking in the hallways. He is awake, he is alert, is comfortable. He denies any pain. He denies any shortness of breath. PHYSICAL EXAMINATION GENERAL: An elderly male. VITAL SIGNS: Blood pressure 125/69, heart rate 72, respiratory rate 18, temperature 98.2. HEENT: Normocephalic, atraumatic and anicteric. NECK: Supple and no JVD. LUNGS: Bilateral equal air entry, rales present. CARDIAC: S1 and S2, regular rate, and rhythm. No murmur and no rub. ABDOMEN: Obese, distended, soft, and nontender. Bowel sounds present. EXTREMITIES: No lower extremity edema. LABORATORY DATA: WBC 6.1, hemoglobin 11.9, hematocrit 32, platelet 137. Sodium 138, potassium 4.2, chloride 106, CO2 20, BUN 27, and creatinine 3.5. Glucose 204, calcium 9.5, total bili 1.6, ammonia 34, albumin 3.6. ASSESSMENT AND PLAN: 1. Stable chronic kidney disease, stage IV. 2. Resolved acute kidney injury. 3. Hepatomegaly/splenomegaly/elevated ammonia. 4. Non-insulin dependent diabetes mellitus. 5. Hypertension. 6. Anemia. PLAN: 1. Stable renal standpoint. 2. GI workup as per Dr. Mejia. 3. Continue lactulose. 4. Continue physical therapy. Selina Garcia MD
[2016-11-20] MEDS: Levothyroxine 88 MCG TAB PO SCH (05:38)
[2016-11-20] MEDS: Pantoprazole 40 mg EC Tab PO SCH (05:38)
[2016-11-20] MEDS: Insulin Reg-MEDIUM-Coverage SC SCH ×2 (06:40→12:30)
[2016-11-20] MEDS: Metoprolol Succinate 50 mg XL Tab PO SCH (08:33)
[2016-11-20] MEDS: Cilostazol 50 mg Tab UD PO SCH (10:31)
[2016-11-20 10:55] VITALS: BP 107/54
[2016-11-20] MEDS: Insulin Lispro (humaLOG) MIX 75/25(10 ml) SC SCH (11:00)
[2016-11-20 11:01] VITALS: PULSE 71; RESP 20; TEMP 98.3; O2SAT 99
--- NOTE | 2016-11-20 13:37 | PN ---
DATE: 11/20/2016 SUBJECTIVE: The patient is seen sitting in chair. He is awake, he is alert, he is comfortable. PHYSICAL EXAMINATION: GENERAL: Elderly male sitting in chair. VITAL SIGNS: Blood pressure 107/54, heart rate 71, respiratory rate 20, temperature 98.3. HEENT: Normocephalic, atraumatic. NECK: Supple, no JVD. LUNGS: Bilateral equal entry, no rales. CARDIAC: S1 and S2. Regular rate rhythm. No murmur, no rub. ABDOMEN: Obese, distended, soft, nontender, bowel sounds present. EXTREMITIES: No lower extremity edema. LABORATORY DATA: No new labs. MEDICATIONS: List reviewed. ASSESSMENT AND PLAN: 1. Acute kidney injury superimposed on chronic kidney disease stage IV, creatinine now stable. 2. Non-insulin dependent diabetes mellitus. 3. Hypertension. 4. Elevated ammonia. 5. Elevated bilirubin. 6. Anemia of chronic disease. PLAN: 1. Stable renal function. 2. Continue management of hyperammonemia as per GI. 3. Physical therapy. Selina Garcia MD
--- NOTE | 2016-11-22 05:36 | DS ---
HISTORY OF PRESENT ILLNESS: This is a 71-year-old man with a history of diabetes and history of alcohol use 40 years ago. He was doing rather well, but recently hospitalized for shortness of breath and found to be anasarcic with volume overload. He was diuresed and rather quickly went home from the hospital. His reports that he was well and then returned to the hospital with acute altered mental status. He had an elevated ammonia level and hepatic as well as metabolic encephalopathy, treated on the medical floor with gentle IV hydration and followed by Renal as well as Cardiology. He improved clinically and came to the transitional care unit for physical therapy and re-collaboration of his metabolic state. This is the discharge summary for his staying on TCU with complex past medical history including chronic renal insufficiency, hypertension, diabetes, coronary artery disease and anasarca. The patient stayed on transitional care and overall did rather well. His hepatic encephalopathy was treated with lactulose and Xifaxan, flapping of the hands subsided. He was ambulatory and did well. Gentle hydration was continued as part of the treatment. Fluids and electrolytes and chemistries were monitored closely. He engaged in physical therapy and activities in the unit, did well, ready for discharge to home this Tuesday morning. Prescriptions and medications were reviewed. He will stay on essentially same home medications with the addition of lactulose. I spoke with his as well as the patient and his sister, a well-known nurse from our former pediatrics unit about Xifaxan and his recent MRI, which showed cirrhosis, but no other significant abnormalities. We will continue the lactulose for now. He will follow up with us in the office in approximately within 1 week and then followup with GI and renal in the future after that. FINAL DISCHARGE DIAGNOSES: 1. Deconditioning. 2. Dehydration. 3. Metabolic encephalopathy. 4. Hepatic encephalopathy. 5. Hypertension. 6. Diabetes. 7. Chronic renal insufficiency. Berto Reyes MD
== END 2016-11-20 14:13 | disposition home or self-care (01) | DRG 71 ==
LOC: TRCU 15:21
PROVIDERS: ADMIT Internal Medicine; ATTEND Internal Medicine
PROC: F07Z9FZ Gait Training/Functional Ambulation Treatment using Assistive, Adaptive, Supportive or Protective Equipment (ICD-10-PCS; principal; 2016-11-14)
PROC: F07M6ZZ Therapeutic Exercise Treatment of Musculoskeletal System - Whole Body (ICD-10-PCS; 2016-11-14)
PROC: F08Z4ZZ Home Management Treatment (ICD-10-PCS; 2016-11-16)
DX: G93.41 Metabolic encephalopathy (principal); I13.0 Hypertensive heart and chronic kidney disease with heart failure and stage 1 through stage 4 chronic kidney disease, or unspecified chronic kidney disease; N18.4 Chronic kidney disease, stage 4 (severe); E11.22 Type 2 diabetes mellitus with diabetic chronic kidney disease; N17.9 Acute kidney failure, unspecified; E72.20 Disorder of urea cycle metabolism, unspecified; E11.42 Type 2 diabetes mellitus with diabetic polyneuropathy; I48.91 Unspecified atrial fibrillation; I50.9 Heart failure, unspecified; K72.90 Hepatic failure, unspecified without coma; E86.0 Dehydration; E03.9 Hypothyroidism, unspecified; E78.5 Hyperlipidemia, unspecified; D63.1 Anemia in chronic kidney disease; I25.10 Atherosclerotic heart disease of native coronary artery without angina pectoris; I73.9 Peripheral vascular disease, unspecified; J61 Pneumoconiosis due to asbestos and other mineral fibers; N20.0 Calculus of kidney; Z79.4 Long term (current) use of insulin; Z79.84 Long term (current) use of oral hypoglycemic drugs; Z86.010 Personal history of colon polyps; Z87.891 Personal history of nicotine dependence; R16.2 Hepatomegaly with splenomegaly, not elsewhere classified; R53.81 Other malaise

== ENCOUNTER 2017-02-10 13:28 | Inpatient (IN) | payer MEDICARE, OTHER ==
[2017-02-10 13:28] VITALS: BMI 22.4
[2017-02-10] MEDS ORDERED: Vancomycin 1gm in NS 250ml 250 ML IVPB STA (14:21)
[2017-02-10] MEDS ORDERED: Vancomycin 1gm in NS 250ml 1 GM/250 ML BAG IVPB STA (14:30)
[2017-02-10 14:59] LABS: BASO # 0.03 K/mm3 (0.0-2.0); BASO % 0.5 % (0.0-3.0); EOS # 0.2 (0.0-0.7); EOS % 2.9 % (1.5-5.0); GRAN # 4.3 (1.4-6.5); GRAN % 64.9 % (50.0-68.0); HEMATOCRIT 30.9 % (42.0-52.0); LYMPH # 1.3 (1.2-3.4); LYMPH % 20.1 % (22.0-35.0); MEAN CELL VOLUME 90.4 fl (80.0-105.0); MEAN CORPUSCULAR HEMOGLOBIN 33.6 pg (25.0-35.0); MEAN CORPUSCULAR HGB CONC 37.2 g/dl (31.0-37.0); MEAN PLATELET VOLUME 12.4 fl (7.0-11.0); MONO # 0.8 (0.1-0.6); MONO % 11.6 % (1.0-6.0); RED CELL DISTRIBUTION WIDTH 15.7 % (11.5-14.5); VENOUS BLOOD GAS BASE EXCESS -4.2 mmol/L (0.0-2.0); VENOUS BLOOD PH 7.38 (7.32-7.43); WHITE BLOOD COUNT 6.6 10^3/ul (4.5-11.0)
[2017-02-10 15:09] LABS: ALB/GLOB RATIO 0.9 (1.1-1.8); BILIRUBIN,TOTAL 2.1 mg/dL (0.2-1.3); CALCIUM 9.5 mg/dL (8.4-10.5); MAGNESIUM 2.1 mg/dL (1.7-2.2); POTASSIUM 3.9 mmol/L (3.6-5.0); TOTAL PROTEIN 7.8 g/dL (5.8-8.3)
[2017-02-10 15:15] LABS: URINE BILIRUBIN NEGATIVE (NEGATIVE); URINE BLOOD TRACE-INTACT (NEGATIVE); URINE GLUCOSE (UA) NEGATIVE (NEGATIVE); URINE KETONE NEGATIVE (NEGATIVE); URINE LEUKOCYTE ESTERASE NEGATIVE Leu/uL (NEGATIVE); URINE PROTEIN 30 mg/dL (<30 mg/dL); URINE UROBILINOGEN 0.2 E.U./dL (<1 E.U./dL)
[2017-02-10 15:16] LABS: URINE APPEARANCE CLEAR (CLEAR); URINE COLOR YELLOW (YELLOW)
[2017-02-10 15:21] LABS: INR 1.2 (0.93-1.08); PARTIAL THROMBOPLASTIN TIME 33.5 Seconds (25.1-36.5)
--- NOTE | 2017-02-10 15:56 | RAD ---
PROCEDURE: Right Foot Radiographs. HISTORY: r/o soft tissue gas COMPARISON: None. FINDINGS: BONES: Normal. No fracture. JOINTS: Normal. SOFT TISSUES: Normal. OTHER FINDINGS: None. IMPRESSION: Normal right foot radiographs.
--- NOTE | 2017-02-10 15:57 | RAD ---
PROCEDURE: Left Foot Radiographs. HISTORY: r/o perisoteal cuffing COMPARISON: None. FINDINGS: BONES: Normal. No fracture. JOINTS: Normal. SOFT TISSUES: Normal. OTHER FINDINGS: None. IMPRESSION: No acute findings
--- NOTE | 2017-02-10 16:05 | RAD ---
HISTORY: Sepsis Patient COMPARISON: 11/10/2016 TECHNIQUE: Chest PA and lateral FINDINGS: LUNGS: No active pulmonary disease. PLEURA: Bilateral pleural plaques CARDIOVASCULAR: Mild cardiomegaly OSSEOUS STRUCTURES: No significant abnormalities. VISUALIZED UPPER ABDOMEN: Normal. OTHER FINDINGS: None. IMPRESSION: No active disease.
[2017-02-10] MEDS ORDERED: Meropenem 1 GM in Dextrose 5% In Water 100 ML IVPB STA (16:52)
[2017-02-11] MEDS: Pantoprazole 40 mg EC Tab PO SCH (06:27)
[2017-02-11] MEDS: Levothyroxine 88 MCG TAB PO SCH (06:27)
[2017-02-11] MEDS ORDERED: Barium Sulfate Susp 2.1% w/v, 2.0% w/w 450 mL Bottle PO ONE (06:59)
[2017-02-11 07:14] LABS: BASO # 0.05 K/mm3 (0.0-2.0); BASO % 0.9 % (0.0-3.0); EOS # 0.2 (0.0-0.7); EOS % 3.3 % (1.5-5.0); GRAN # 3.42 (1.4-6.5); GRAN % 59.8 % (50.0-68.0); HEMATOCRIT 27.8 % (42.0-52.0); LYMPH # 1.4 (1.2-3.4); LYMPH % 23.6 % (22.0-35.0); MEAN CELL VOLUME 90.3 fl (80.0-105.0); MEAN CORPUSCULAR HEMOGLOBIN 33.1 pg (25.0-35.0); MEAN CORPUSCULAR HGB CONC 36.7 g/dl (31.0-37.0); MONO # 0.7 (0.1-0.6); MONO % 12.4 % (1.0-6.0); RED CELL DISTRIBUTION WIDTH 15.8 % (11.5-14.5); WHITE BLOOD COUNT 5.7 10^3/ul (4.5-11.0)
[2017-02-11] MEDS: Insulin Reg-HIGH-Coverage SC SCH ×4 (07:34→21:56)
[2017-02-11 07:37] LABS: CALCIUM 9.1 mg/dL (8.4-10.5); POTASSIUM 4.7 mmol/L (3.6-5.0)
[2017-02-11] MEDS: Metoprolol Succinate 50 mg XL Tab PO SCH (08:33)
--- NOTE | 2017-02-11 13:34 | CP.PCM.CON ---
<Darline Hannah - Last Filed: 02/11/17 13:06> History of Present Illness - History of Present Illness History of Present Illness: Seen and examined at the bedside earlier this morning, chart was reviewed. at bedside. Request for GI consult is for history of hepatic encephalopathy. HPI: This is a 71-year-old male with a past medical history of CHF, stage IV chronic kidney disease,, hypertension, diabetes mellitus came to the emergency room with complaints of lower extremity erythema. The patient has been seen by our service back in November for hepatic encephalopathy, the patient had elevated ammonia level. The patient has previous history of consuming excessive alcohol over 20 years ago, the patient states in his "young age",, but has not consumed alcohol for years now. The patient had abdominal MRI on which revealed hepatic cirrhosis with no focal lesion and mild ascites. The patient endorses that on outpatient basis his ammonia level was elevated at 254 and decrease to 224(?), he has been on lactulose and moving his bowels, no melena or bright red blood per. He is also on Xifaxan. He does report increasing abdominal distention as well as weight gain of 10 pounds over the past few days. Patient most recent colonoscopy was 12/2015, found to have multiple colon polyps. Past medical history: chronic kidney disease stage IV, CHF, diabetes mellitus, hypertension, peripheral arterial disease with arterial insufficieny, atrial fibrillation s/p cardiac ablation Surgical history: Hernia repair, left knee replacement, cholecystectomy Allergies: No known drug allergies Medications reviewed as per [facility] Social history: Denies smoking, in the past consumed excessive amount of alcohol , denies drugs ROS: Systems review with positive findings see HPI. Past Patient History - Past Social History Smoking Status: Light Smoker < 10 Cigarettes Daily - CARDIAC Hx Cardiac Disorders: Yes Hx Congestive Heart Failure: Yes Hx Hypertension: Yes - PULMONARY Hx Respiratory Disorders: Yes (asbestosis) - NEUROLOGICAL Hx Neurological Disorder: Yes (neuropathy "all over" pt stated) - HEENT Hx Macular Degeneration: Yes - RENAL Hx Chronic Kidney Disease: No Hx Kidney Stones: Yes (several times) - ENDOCRINE/METABOLIC Hx Diabetes Mellitus Type 2: Yes Hx Hypothyroidism: Yes Other/Comment: metabolic encephalopathy - HEMATOLOGICAL/ONCOLOGICAL Hx Blood Disorders: No - INTEGUMENTARY Hx Dermatological Problems: No Other/Comment: B/L leg erythema. Edema +1 B/L - MUSCULOSKELETAL/RHEUMATOLOGICAL Hx Falls: No - GASTROINTESTINAL Hx Gastrointestinal Disorders: Yes (COLON POLYPS,CHOLECYSTECTOMY,METABOLIC ENCEPHALOPATHY,) - GENITOURINARY/GYNECOLOGICAL Hx Genitourinary Disorders: Yes - PSYCHIATRIC Hx Emotional Abuse: No Hx Physical Abuse: No Hx Substance Use: No - SURGICAL HISTORY Hx Cholecystectomy: Yes Other/Comment: hernia repair, b/l total knee replacement 1996, 2001, left pigtail stent, r elbow sx - ANESTHESIA Hx Anesthesia Reactions: No Hx Malignant Hyperthermia: No Meds Allergies/Adverse Reactions: Allergies Allergy/AdvReac Type Severity Reaction Status Date / Time No Known Allergies Allergy Verified 02/10/17 14:02 - Medications Medications: Current Medications Acetaminophen (Tylenol 325mg Tab) 650 mg PO Q4H PRN PRN Reason: Pain, moderate (4-7) Last Admin: 02/10/17 22:26 Dose: 650 mg Amlodipine Besylate (Norvasc) 5 mg PO BID [facility] Last Admin: 02/11/17 10:12 Dose: 5 mg Aspirin (Ecotrin) 81 mg PO DAILY [facility] Last Admin: 02/11/17 10:08 Dose: 81 mg Furosemide (Lasix) 40 mg PO DAILY [facility] Last Admin: 02/11/17 10:13 Dose: 40 mg Gabapentin (Neurontin) 300 mg PO BID [facility] PRN Reason: Protocol Last Admin: 02/11/17 10:07 Dose: 300 mg Ceftaroline Fosamil 300 mg/ (Sodium Chloride) 100 mls @ 100 mls/hr IVPB Q12 [facility] PRN Reason: Protocol Stop: 02/18/17 10:01 Last Admin: 02/11/17 09:31 Dose: 100 mls/hr Insulin Human Regular (Humulin R High) 0 units SC ACHS [facility] PRN Reason: Protocol Last Admin: 02/11/17 12:03 Dose: 10 units Lactulose (Enulose) 20 gm PO HS [facility] Last Admin: 02/11/17 08:34 Dose: 20 gm Levothyroxine Sodium (Synthroid) 88 mcg PO 0600 [facility] Last Admin: 02/11/17 06:27 Dose: 88 mcg Metoprolol Succinate (Toprol Xl) 50 mg PO BRK [facility] Last Admin: 02/11/17 08:33 Dose: 50 mg Mupirocin (Bactroban Ointment) 0 gm TOP BID [facility] Oxycodone/Acetaminophen (Percocet 5/325 Mg Tab) 1 tab PO Q6H PRN PRN Reason: Pain, severe (8-10) Stop: 02/13/17 22:54 Pantoprazole Sodium (Protonix Ec Tab) 40 mg PO 0600 [facility] Last Admin: 02/11/17 06:27 Dose: 40 mg Rifaximin (Xifaxan) 550 mg PO DAILY [facility] PRN Reason: Protocol Last Admin: 02/11/17 10:07 Dose: 550 mg Physical Exam - Constitutional Appears: No Acute Distress - Head Exam Head Exam: NORMOCEPHALIC - Eye Exam Eye Exam: Normal appearance. absent: Scleral icterus - ENT Exam ENT Exam: Mucous Membranes Moist - Neck Exam Neck exam: Positive for: Normal Inspection - Respiratory Exam Respiratory Exam: Decreased Breath Sounds, NORMAL BREATHING PATTERN. absent: Rales, Wheezes, Respiratory Distress - Cardiovascular Exam Cardiovascular Exam: +S1, +S2 - GI/Abdominal Exam GI & Abdominal Exam: Distended, Normal Bowel Sounds, Soft. absent: Guarding, Rebound, Tenderness - Extremities Exam Extremities exam: Negative for: calf tenderness Additional comments: bilateral LE erythema - Neurological Exam Neurological exam: Alert, Oriented x3 - Skin Skin Exam: Dry, Warm Results - Vital Signs Recent Vital Signs: Last Vital Signs Temp 98.3 F 02/11/17 08:34 Pulse 61 02/11/17 10:12 Resp 18 02/11/17 08:34 BP 142/64 02/11/17 10:13 Pulse Ox 100 02/11/17 08:34 - Labs Result Diagrams: 02/11/17 06:10 02/11/17 06:10 Labs: Laboratory Results - last 24 hr 02/10/17 02/11/17 02/11/17 21:19 06:10 06:10 WBC 5.7 RBC 3.08 L Hgb 10.2 L Hct 27.8 L MCV 90.3 MCH 33.1 MCHC 36.7 RDW 15.8 H Plt Count 109 L MPV 12.0 H Gran % 59.8 Lymph % (Auto) 23.6 [place] % (Auto) 12.4 H Eos % (Auto) 3.3 Baso % (Auto) 0.9 Gran # 3.42 Lymph # 1.4 [place] # 0.7 H Eos # 0.2 Baso # 0.05 ESR 37 H Sodium 143 Potassium 4.7 Chloride 113 H Carbon Dioxide 21 Anion Gap 14 BUN 42 H Creatinine 3.2 H Est GFR ( Amer) 23 Est GFR (Non-Af Amer) 19 POC Glucose (mg/dL) 250 H Random Glucose 113 H Calcium 9.1 Assessment & Plan - Assessment and Plan (Free Text) Assessment: ASSESSMENT: Hepatic Cirrhosis H/O Hepatic encephelopathy H/O Excessive alcohol in the past Abdominal Ascites Lower extremity cellulitis PAD DM PLAN: on IV antibiotics as per ID pending ct scan abdomen and pelvis, FU results consider paracentesis evaluation diet as tolerated continue PPI check ammonia level on lacutlose and Xiafaxin monitor LFT as per ID/Podiatry Thank you for this consult and for allowing us to participate in your patient care, further recommendation based upon clinical course. Seen and examined w/ Dr. Mejia. <Delbert Mejia V - Last Filed: 02/12/17 00:37> Meds - Medications Medications: Current Medications Acetaminophen (Tylenol 325mg Tab) 650 mg PO Q4H PRN PRN Reason: Pain, moderate (4-7) Last Admin: 02/10/17 22:26 Dose: 650 mg Amlodipine Besylate (Norvasc) 5 mg PO BID [facility] Last Admin: 02/11/17 16:59 Dose: 5 mg Aspirin (Ecotrin) 81 mg PO DAILY [facility] Last Admin: 02/11/17 10:08 Dose: 81 mg Furosemide (Lasix) 40 mg PO DAILY [facility] Last Admin: 02/11/17 10:13 Dose: 40 mg Gabapentin (Neurontin) 300 mg PO BID [facility] PRN Reason: Protocol Last Admin: 02/11/17 16:59 Dose: 300 mg Ceftaroline Fosamil 300 mg/ (Sodium Chloride) 100 mls @ 100 mls/hr IVPB Q12 [facility] PRN Reason: Protocol Stop: 02/18/17 10:01 Last Admin: 02/11/17 21:19 Dose: 100 mls/hr Insulin Detemir (Levemir) 10 unit SC HS [facility] Last Admin: 02/11/17 21:56 Dose: 10 unit Insulin Human Regular (Humulin R High) 0 units SC ACHS [facility] PRN Reason: Protocol Last Admin: 02/11/17 21:56 Dose: 2 units Lactulose (Enulose) 20 gm PO HS [facility] Last Admin: 02/11/17 08:34 Dose: 20 gm Levothyroxine Sodium (Synthroid) 88 mcg PO 0600 [facility] Last Admin: 02/11/17 06:27 Dose: 88 mcg Metoprolol Succinate (Toprol Xl) 50 mg PO BRK [facility] Last Admin: 02/11/17 08:33 Dose: 50 mg Mupirocin (Bactroban Ointment) 0 gm TOP BID [facility] Last Admin: 02/11/17 17:00 Dose: 1 applic Oxycodone/Acetaminophen (Percocet 5/325 Mg Tab) 1 tab PO Q6H PRN PRN Reason: Pain, severe (8-10) Stop: 02/13/17 22:54 Last Admin: 02/11/17 19:35 Dose: 1 tab Pantoprazole Sodium (Protonix Ec Tab) 40 mg PO 0600 [facility] Last Admin: 02/11/17 06:27 Dose: 40 mg Rifaximin (Xifaxan) 550 mg PO DAILY [facility] PRN Reason: Protocol Last Admin: 02/11/17 10:07 Dose: 550 mg Results - Vital Signs Recent Vital Signs: Last Vital Signs Temp 98.6 F 02/11/17 16:00 Pulse 69 02/11/17 16:00 Resp 20 02/11/17 16:00 BP 143/71 02/11/17 16:00 Pulse Ox 99 02/11/17 16:00 - Labs Result Diagrams: 02/11/17 06:10 02/11/17 06:10 Labs: Laboratory Results - last 24 hr 02/10/17 02/11/17 02/11/17 21:19 06:10 06:10 WBC 5.7 RBC 3.08 L Hgb 10.2 L Hct 27.8 L MCV 90.3 MCH 33.1 MCHC 36.7 RDW 15.8 H Plt Count 109 L MPV 12.0 H Gran % 59.8 Lymph % (Auto) 23.6 [place] % (Auto) 12.4 H Eos % (Auto) 3.3 Baso % (Auto) 0.9 Gran # 3.42 Lymph # 1.4 [place] # 0.7 H Eos # 0.2 Baso # 0.05 ESR 37 H Sodium 143 Potassium 4.7 Chloride 113 H Carbon Dioxide 21 Anion Gap 14 BUN 42 H Creatinine 3.2 H Est GFR ( Amer) 23 Est GFR (Non-Af Amer) 19 POC Glucose (mg/dL) 250 H Random Glucose 113 H Calcium 9.1 02/11/17 02/11/17 02/11/17 07:18 11:36 16:13 WBC RBC Hgb Hct MCV MCH MCHC RDW Plt Count MPV Gran % Lymph % (Auto) [place] % (Auto) Eos % (Auto) Baso % (Auto) Gran # Lymph # [place] # Eos # Baso # ESR Sodium Potassium Chloride Carbon Dioxide Anion Gap BUN Creatinine Est GFR ( Amer) Est GFR (Non-Af Amer) POC Glucose (mg/dL) 117 H 300 H 263 H Random Glucose Calcium 02/11/17 21:43 WBC RBC Hgb Hct MCV MCH MCHC RDW Plt Count MPV Gran % Lymph % (Auto) [place] % (Auto) Eos % (Auto) Baso % (Auto) Gran # Lymph # [place] # Eos # Baso # ESR Sodium Potassium Chloride Carbon Dioxide Anion Gap BUN Creatinine Est GFR ( Amer) Est GFR (Non-Af Amer) POC Glucose (mg/dL) 318 H Random Glucose Calcium Attending/Attestation - Attestation I have personally seen and examined this patient.: Yes I have fully participated in the care of the patient.: Yes I have reviewed all pertinent clinical information: Yes Notes (Text): 02/12/17 00:37 p
--- NOTE | 2017-02-11 13:52 | CP.PCM.CON ---
History of Present Illness - History of Present Illness History of Present Illness: Podiatry Consult Note - Dr. Abbasi 71 year old male patient PMHx chronic kidney disease stage IV, CHF, DM, HTN, PAD , afib s/p cardiac ablation seen and evaluated at bedside for bilateral foot ulcerations. Patient is accompanied by at bedside. Patient hemodynamically stable and NAD. Patient relates that an ulcer on his left 4th digit initially appeared approximately 6 weeks ago; his 4th digit started to increase in size, turn red, hot, and swollen which led him to present to [facility] yesterday. Patient admits he was not able to walk on his left foot prior to admission 2/2 pain, however believes the pain has decreased significantly. Patient states he also has ulcers on the outside of his left 5th digit and on his right 4th digit that he believes to be healing. Patient states he follows up with an outside home care giver who has been taking care of his wounds. Patient also states that he has chronic red skin changes on the anterior aspect of his legs b/l from when he tried to remove his compression stockings; states the skin on his legs got scratched off during removal of stockings but have since healed. Patient denies N/V/F/D/C/SOB/calf pain. Offers no other pedal complaints at this time. Review of Systems - Review of Systems All systems: reviewed and no additional remarkable complaints except (as per HPI ) Past Patient History - Past Social History Smoking Status: Light Smoker < 10 Cigarettes Daily - CARDIAC Hx Cardiac Disorders: Yes Hx Congestive Heart Failure: Yes Hx Hypertension: Yes - PULMONARY Hx Respiratory Disorders: Yes (asbestosis) - NEUROLOGICAL Hx Neurological Disorder: Yes (neuropathy "all over" pt stated) - HEENT Hx Macular Degeneration: Yes - RENAL Hx Chronic Kidney Disease: No Hx Kidney Stones: Yes (several times) - ENDOCRINE/METABOLIC Hx Diabetes Mellitus Type 2: Yes Hx Hypothyroidism: Yes Other/Comment: metabolic encephalopathy - HEMATOLOGICAL/ONCOLOGICAL Hx Blood Disorders: No - INTEGUMENTARY Hx Dermatological Problems: No Other/Comment: B/L leg erythema. Edema +1 B/L - MUSCULOSKELETAL/RHEUMATOLOGICAL Hx Falls: No - GASTROINTESTINAL Hx Gastrointestinal Disorders: Yes (COLON POLYPS,CHOLECYSTECTOMY,METABOLIC ENCEPHALOPATHY,) - GENITOURINARY/GYNECOLOGICAL Hx Genitourinary Disorders: Yes - PSYCHIATRIC Hx Emotional Abuse: No Hx Physical Abuse: No Hx Substance Use: No - SURGICAL HISTORY Hx Cholecystectomy: Yes Other/Comment: hernia repair, b/l total knee replacement 1996, 2001, left pigtail stent, r elbow sx - ANESTHESIA Hx Anesthesia Reactions: No Hx Malignant Hyperthermia: No Meds Allergies/Adverse Reactions: Allergies Allergy/AdvReac Type Severity Reaction Status Date / Time No Known Allergies Allergy Verified 02/10/17 14:02 - Medications Medications: Current Medications Acetaminophen (Tylenol 325mg Tab) 650 mg PO Q4H PRN PRN Reason: Pain, moderate (4-7) Last Admin: 02/10/17 22:26 Dose: 650 mg Amlodipine Besylate (Norvasc) 5 mg PO BID [facility] Last Admin: 02/11/17 10:12 Dose: 5 mg Aspirin (Ecotrin) 81 mg PO DAILY [facility] Last Admin: 02/11/17 10:08 Dose: 81 mg Furosemide (Lasix) 40 mg PO DAILY [facility] Last Admin: 02/11/17 10:13 Dose: 40 mg Gabapentin (Neurontin) 300 mg PO BID [facility] PRN Reason: Protocol Last Admin: 02/11/17 10:07 Dose: 300 mg Ceftaroline Fosamil 300 mg/ (Sodium Chloride) 100 mls @ 100 mls/hr IVPB Q12 [facility] PRN Reason: Protocol Stop: 02/18/17 10:01 Last Admin: 02/11/17 09:31 Dose: 100 mls/hr Insulin Human Regular (Humulin R High) 0 units SC ACHS [facility] PRN Reason: Protocol Last Admin: 02/11/17 12:03 Dose: 10 units Lactulose (Enulose) 20 gm PO HS [facility] Last Admin: 02/11/17 08:34 Dose: 20 gm Levothyroxine Sodium (Synthroid) 88 mcg PO 0600 [facility] Last Admin: 02/11/17 06:27 Dose: 88 mcg Metoprolol Succinate (Toprol Xl) 50 mg PO BRK [facility] Last Admin: 02/11/17 08:33 Dose: 50 mg Mupirocin (Bactroban Ointment) 0 gm TOP BID [facility] Oxycodone/Acetaminophen (Percocet 5/325 Mg Tab) 1 tab PO Q6H PRN PRN Reason: Pain, severe (8-10) Stop: 02/13/17 22:54 Pantoprazole Sodium (Protonix Ec Tab) 40 mg PO 0600 [facility] Last Admin: 02/11/17 06:27 Dose: 40 mg Rifaximin (Xifaxan) 550 mg PO DAILY [facility] PRN Reason: Protocol Last Admin: 02/11/17 10:07 Dose: 550 mg Physical Exam - Constitutional Appears: Well, Non-toxic, No Acute Distress - Extremities Exam Additional comments: VASC: DP and PT pulses palpable 2/4. CFT <3 seconds to all digits. Temperature gradient warm to warm b/l. No increase in warmth noted to left 4th digit. Nonpitting edema noted to left 4th digit. NEURO: Gross sensation diminished bilaterally. DERM: Left 4th digit erythema with ulceration #1 noted to lateral aspect measuring approximately 1.3 x 1.3 x 0.2 cm - ulcer noted to have a 100% fibrous base with macerated rim and serous drainage; no probe to bone/purulence/ tunneling/undermining noted. Left foot dorsolateral 5th digit healed ulceration #2 measuring approximately 0.2 x 0.2 x 0.1 cm with eschar cap and hyperkeratotic rim; no clinical signs of infection noted at this time. Right foot 4th digit ulceration #3 noted to lateral asepct measuring approximately 0.3 x 0.3 x 0.1 cm - ulcer noted to have a mixed fibrogranular base and macerated rim; no drainage/purulence/probe to bone/tunneling/undermining/ erythema noted; no clinical signs of infection noted at this time. Hyperkeratotic lesion noted to dorsolateral right 5th digit. ORTHO: Mild tenderness upon ROM of left 4th digit and upon palpation of ulceration. - Neurological Exam Neurological exam: Alert, Oriented x3 - Psychiatric Exam Psychiatric exam: Normal Affect, Normal Mood Results - Vital Signs Recent Vital Signs: Last Vital Signs Temp 98.3 F 02/11/17 08:34 Pulse 61 02/11/17 10:12 Resp 18 02/11/17 08:34 BP 142/64 02/11/17 10:13 Pulse Ox 100 02/11/17 08:34 - Labs Result Diagrams: 02/11/17 06:10 02/11/17 06:10 Labs: Laboratory Results - last 24 hr 02/10/17 02/11/17 02/11/17 21:19 06:10 06:10 WBC 5.7 RBC 3.08 L Hgb 10.2 L Hct 27.8 L MCV 90.3 MCH 33.1 MCHC 36.7 RDW 15.8 H Plt Count 109 L MPV 12.0 H Gran % 59.8 Lymph % (Auto) 23.6 [place] % (Auto) 12.4 H Eos % (Auto) 3.3 Baso % (Auto) 0.9 Gran # 3.42 Lymph # 1.4 [place] # 0.7 H Eos # 0.2 Baso # 0.05 ESR 37 H Sodium 143 Potassium 4.7 Chloride 113 H Carbon Dioxide 21 Anion Gap 14 BUN 42 H Creatinine 3.2 H Est GFR ( Amer) 23 Est GFR (Non-Af Amer) 19 POC Glucose (mg/dL) 250 H Random Glucose 113 H Calcium 9.1 Assessment & Plan - Assessment and Plan (Free Text) Assessment: 71 year old male patient with bilateral foot ulcerations 2/2 diabetic neuropathy Plan: Patient seen and evaluated at bedside Discussed with attending, Dr. Abbasi Afebrile, WBC 5.7 Left foot XR reviewed - WNL Right foot XR reviewed - WNL Wound culture taken of left 4th digit ulceration Betadine applied to ulcerations and dressed with DSD Bactroban ordered, to be applied to bilateral 4th digit ulcerations QD Continue abx per ID - start Teflaro pending wound cultures and blood cultures Podiatry will continue to follow patient while in house
--- NOTE | 2017-02-11 14:38 | CT ---
PROCEDURE: CT Abdomen and Pelvis without intravenous contrast HISTORY: increase girth, ascites, cirrhosis COMPARISON: 07/19/2016 TECHNIQUE: Without contrast.. Contrast Dose: Radiation dose: Total exam DLP = 1275 mGy-cm. This CT exam was performed using one or more of the following dose reduction techniques: Automated exposure control, adjustment of the mA and/or kV according to patient size, and/or use of iterative reconstruction technique. FINDINGS: LOWER THORAX: Calcified pleural plaques on the diaphragmatic surfaces LIVER: There is minimal irregularity of the surface of the liver consistent with cirrhosis. GALLBLADDER AND BILE DUCTS: Gallbladder removed PANCREAS: Unremarkable. No gross lesion or ductal dilatation. SPLEEN: Unremarkable. ADRENALS: Unremarkable. No mass. KIDNEYS AND URETERS: There is a 5 mm stone in the lower pole of the left kidney VASCULATURE: Unremarkable. No aortic aneurysm. BOWEL: There is mural thickening throughout the colon consistent with colitis APPENDIX: Unremarkable. Normal appendix. PERITONEUM: There is moderate ascites. LYMPH NODES: Unremarkable. No enlarged lymph nodes. BLADDER: Unremarkable. REPRODUCTIVE: Unremarkable. BONES: No acute fracture. OTHER FINDINGS: None. IMPRESSION: Cirrhosis with moderate ascites. Mural thickening throughout the colon consistent with colitis
--- NOTE | 2017-02-11 17:41 | CARD ---
APPROVED REPORT EKG Measurement Heart [id number] <Conclusion> Junctional rhythm Nonspecific ST abnormality Prolonged QT Abnormal ECG
--- NOTE | 2017-02-11 18:31 | CP.PCM.CON ---
History of Present Illness - History of Present Illness History of Present Illness: 71 year old male with PMH of obesity with BMI 31, chronic liver disease, history of colonic polyps, atrial fibrillation, COPD, HTN, chronic renal failure , DM, peripheral vascular disease, asbestosis was brought in to [facility] because of continued pain i both lower extremities, particularly the left foot. The patient states that he has been having pain and swelling on the left dorsal forefoot area for the past 2 weeks and he was seen by his PMD and was given an unrecalled antibiotic which he took for a week, with minimal relief. He denies animal contacts, walking barefoot or soaking his feet in water. He denies recent travel outside of [place] in the past 3 months. He denies fever or chills, no nausea or vomiting, no chest pain, no SOB, no headache or dizziness, no abdominal pain, no diarrhea, no dysuria. Infectious diseases consult is requested to further evaluate and manage. Review of Systems - Review of Systems All systems: reviewed and no additional remarkable complaints except (as per [facility] ) Past Patient History - Past Social History Smoking Status: Light Smoker < 10 Cigarettes Daily - CARDIAC Hx Cardiac Disorders: Yes Hx Congestive Heart Failure: Yes Hx Hypertension: Yes - PULMONARY Hx Respiratory Disorders: Yes (asbestosis) - NEUROLOGICAL Hx Neurological Disorder: Yes (neuropathy "all over" pt stated) - HEENT Hx Macular Degeneration: Yes - RENAL Hx Chronic Kidney Disease: No Hx Kidney Stones: Yes (several times) - ENDOCRINE/METABOLIC Hx Diabetes Mellitus Type 2: Yes Hx Hypothyroidism: Yes Other/Comment: metabolic encephalopathy - HEMATOLOGICAL/ONCOLOGICAL Hx Blood Disorders: No - INTEGUMENTARY Hx Dermatological Problems: No Other/Comment: B/L leg erythema. Edema +1 B/L - MUSCULOSKELETAL/RHEUMATOLOGICAL Hx Falls: No - GASTROINTESTINAL Hx Gastrointestinal Disorders: Yes (COLON POLYPS,CHOLECYSTECTOMY,METABOLIC ENCEPHALOPATHY,) - GENITOURINARY/GYNECOLOGICAL Hx Genitourinary Disorders: Yes - PSYCHIATRIC Hx Emotional Abuse: No Hx Physical Abuse: No Hx Substance Use: No - SURGICAL HISTORY Hx Cholecystectomy: Yes Other/Comment: hernia repair, b/l total knee replacement 2001, left pigtail stent, r elbow sx - ANESTHESIA Hx Anesthesia Reactions: No Hx Malignant Hyperthermia: No Meds Allergies/Adverse Reactions: Allergies Allergy/AdvReac Type Severity Reaction Status Date / Time No Known Allergies Allergy Verified 02/10/17 14:02 - Medications Medications: Current Medications Acetaminophen (Tylenol 325mg Tab) 650 mg PO Q4H PRN PRN Reason: Pain, moderate (4-7) Last Admin: 02/10/17 22:26 Dose: 650 mg Amlodipine Besylate (Norvasc) 5 mg PO BID [facility] Last Admin: 02/10/17 22:27 Dose: 5 mg Aspirin (Ecotrin) 81 mg PO DAILY [facility] Furosemide (Lasix) 40 mg PO DAILY [facility] Gabapentin (Neurontin) 300 mg PO BID [facility] PRN Reason: Protocol Last Admin: 02/10/17 22:27 Dose: 300 mg Insulin Human Regular (Humulin R High) 0 units SC ACHS [facility] PRN Reason: Protocol Lactulose (Enulose) 20 gm PO HS [facility] Levothyroxine Sodium (Synthroid) 88 mcg PO 0600 [facility] Last Admin: 02/11/17 06:27 Dose: 88 mcg Metoprolol Succinate (Toprol Xl) 50 mg PO BRK [facility] Oxycodone/Acetaminophen (Percocet 5/325 Mg Tab) 1 tab PO Q6H PRN PRN Reason: Pain, severe (8-10) Stop: 02/13/17 22:54 Pantoprazole Sodium (Protonix Ec Tab) 40 mg PO 0600 [facility] Last Admin: 02/11/17 06:27 Dose: 40 mg Rifaximin (Xifaxan) 550 mg PO DAILY [facility] PRN Reason: Protocol Physical Exam - Constitutional Appears: Non-toxic, No Acute Distress - Head Exam Head Exam: NORMAL INSPECTION - ENT Exam ENT Exam: Mucous Membranes Moist - Neck Exam Neck exam: Negative for: Lymphadenopathy, Meningismus - Respiratory Exam Respiratory Exam: Decreased Breath Sounds - Cardiovascular Exam Cardiovascular Exam: +S1, +S2 - GI/Abdominal Exam GI & Abdominal Exam: Soft. absent: Tenderness - Extremities Exam Additional comments: left foot with erythema over the dorsal distal third with tenderness noted Results - Vital Signs Recent Vital Signs: Last Vital Signs Temp 98.5 F 02/11/17 00:00 Pulse 65 02/10/17 22:27 Resp 20 02/10/17 19:26 BP 129/66 02/10/17 22:27 Pulse Ox 99 02/11/17 00:00 - Labs Result Diagrams: 02/11/17 06:10 02/11/17 06:10 Labs: Laboratory Results - last 24 hr 02/10/17 21:19 POC Glucose (mg/dL) 250 H Assessment & Plan - Assessment and Plan (Free Text) Plan: Assessment Consider left foot cellulitis in a patient with DM and peripheral vascular disease obesity with BMI 31 chronic liver disease history of colonic polyps atrial fibrillation COPD HTN chronic renal failure DM peripheral vascular disease asbestosis Plan Started the patient on Teflaro pending blood and wound cx; follow up Podiatry evaluation and recommendations will monitor clinically
[2017-02-11] MEDS: Oxycodone/Acetaminophen 5/325 mg Tab PO PRN (19:35)
[2017-02-11] MEDS ORDERED: Insulin Detemir 100 units/ml Vial (Levemir) SC SCH (22:00)
--- NOTE | 2017-02-11 23:36 | PN ---
DATE: 02/11/2017 DAILY PROGRESS NOTE SUBJECTIVE: The patient was seen this Tuesday morning in room 566, bed 2, with his at the bedside. He is awake, alert, clear, and in good spirits. Erythema on the lower extremity has improved dramatically with just overnight antibiotics. Case was discussed with Infectious Disease sediment remediation consultant, Dr. Corona. We will await GI input. A CT scan of the abdomen has been ordered. Continuing antibiotics and gentle IV hydration and following the sugars. We will add the nighttime dose of long-acting insulin and continue high-schedule coverage for a.c. and at bedtime fingersticks. Berto Reyes MD MTDD
[2017-02-12] MEDS: Pantoprazole 40 mg EC Tab PO SCH (05:27)
[2017-02-12] MEDS: Levothyroxine 88 MCG TAB PO SCH (05:27)
[2017-02-12] MEDS: Insulin Reg-HIGH-Coverage SC SCH ×4 (08:21→22:03)
[2017-02-12] MEDS: Metoprolol Succinate 50 mg XL Tab PO SCH (08:37)
[2017-02-12] MEDS: Oxycodone/Acetaminophen 5/325 mg Tab PO PRN (13:42)
--- NOTE | 2017-02-12 18:05 | PN ---
DATE: 02/12/2017 SUBJECTIVE: The patient is in bed in no acute distress, nontoxic. No fevers. The patient was seen early this morning in room 566, bed 1. PHYSICAL EXAMINATION: VITAL SIGNS: Temperature is 97, blood pressure is 117/60, respiratory rate of 16. HEENT: Unremarkable. NECK: Supple. LUNGS: Have decreased breath sounds. HEART: Normal S1, S2. ABDOMEN: Emanation is soft, nontender. LABORATORY EXAMINATION: Reveals the patient have a white count of 5.7, hemoglobin of 10, platelets of 109. Chemistries reveal is noted and with a creatinine of 3.2. Microbiology reveals the foot culture has a Gram-negative johann. The blood cultures have no growth. Urine cultures are no growth and the patient is on ceftaroline. ASSESSMENT AND PLAN: A 71-year-old male with morbid obesity with a BMI of 31 and chronic liver disease, history of chronic polyps with chronic obstructive pulmonary disease, hypertension, chronic renal failure and diabetes, peripheral vascular disease who has had left foot Gram-negative johann cellulitis and diabetic with peripheral vascular disease and obesity, BMI of 31, chronic liver disease, and chronic history of colonic polyps and hypertension and currently on Teflaro, we will check on the identification and sensitivity, he has a Gram-negative johann. We will follow closely with you. Moustapha Frankel MD
--- NOTE | 2017-02-12 21:39 | PN ---
DATE: 02/12/2017 SUBJECTIVE: The patient is seen this Tuesday morning in room 566, bed 1. He is resting comfortably in bed with his at the bedside. The patient is awake, alert, clear, appropriate, and has no complaints. Pain in the foot has markedly improved. He says erythema has improved as well and recent increase in abdominal girth seem to have improved here in the hospital. PHYSICAL EXAMINATION: HEENT: Head and neck are unremarkable. Conjunctivae pink. Mucous membranes are moist. NECK: Supple without masses. LUNGS: Have good aeration in right and left. HEART: Regular. Not tachycardic. ABDOMEN: Moderately obese with ascites present. EXTREMITIES: thin, but no significant edema. Erythema of the left foot has markedly improved. Wound is healing. There is noted an ulcer between the third and fourth toes of the left foot, being dressed with Silvadene and care for by podiatry. IMPRESSION: Diabetic foot cellulitis. PLAN: Continue IV antibiotics per infectious disease security system sales consultant ([employer]). Continue to monitor sugars with insulin coverage. I have added evening dose of Levemir. The patient takes Humalog 70/30 30 units twice a day at home. We will check cultures and follow ID as far as course of antibiotics. Berto Reyes MD
[2017-02-12] MEDS: Insulin Detemir 100 units/ml Vial (Levemir) SC SCH (22:04)
[2017-02-13] MEDS: Levothyroxine 88 MCG TAB PO SCH (05:33)
[2017-02-13] MEDS: Pantoprazole 40 mg EC Tab PO SCH (05:33)
[2017-02-13 06:42] LABS: ALB/GLOB RATIO 0.9 (1.1-1.8); BILIRUBIN,TOTAL 1.5 mg/dL (0.2-1.3); CALCIUM 8.6 mg/dL (8.4-10.5); POTASSIUM 4.1 mmol/L (3.6-5.0); TOTAL PROTEIN 6.9 g/dL (5.8-8.3)
[2017-02-13] MEDS: Insulin Reg-HIGH-Coverage SC SCH ×4 (08:30→21:18)
[2017-02-13] MEDS: Metoprolol Succinate 50 mg XL Tab PO SCH (08:40)
[2017-02-13] MEDS: Lactobacillus Acidophilus 500 MU Cap PO SCH ×2 (10:44→17:37)
--- NOTE | 2017-02-13 11:13 | CP.PCM.PN ---
Subjective - Date & Time of Evaluation Date of Evaluation: 02/13/17 Time of Evaluation: 11:10 - Subjective Subjective: Podiatry progress note - Dr. Abbasi 71 year old male patient seen and evaluated at bedside for bilateral foot ulcerations. Patient is accompanied by at bedside. Patient hemodynamically stable and NAD. Patient states he follows up with an outside security services manager who has been taking care of his wounds. Patient states that he has a lot of pain on the left ulceration and less pain on the right foot. Patient denies N/V/F/D/C/SOB/ calf pain. Offers no other pedal complaints at this time. Objective - Vital Signs/Intake and Output Vital Signs (last 24 hours): Temp Pulse Resp BP Pulse Ox 98 F 83 20 126/65 98 02/13/17 08:11 02/13/17 10:45 02/13/17 08:11 02/13/17 10:45 02/13/17 08:11 Intake and Output: 02/13/17 02/13/17 06:59 18:59 Intake Total 2020 Output Total 600 Balance 1420 - Medications Medications: Current Medications Acetaminophen (Tylenol 325mg Tab) 650 mg PO Q4H PRN PRN Reason: Pain, moderate (4-7) Last Admin: 02/10/17 22:26 Dose: 650 mg Amlodipine Besylate (Norvasc) 5 mg PO BID [facility] Last Admin: 02/13/17 10:45 Dose: 5 mg Aspirin (Ecotrin) 81 mg PO DAILY [facility] Last Admin: 02/13/17 10:44 Dose: 81 mg Furosemide (Lasix) 40 mg PO DAILY [facility] Last Admin: 02/13/17 10:44 Dose: 40 mg Gabapentin (Neurontin) 300 mg PO BID [facility] PRN Reason: Protocol Last Admin: 02/13/17 10:45 Dose: 300 mg Meropenem 250 mg/ Sodium (Chloride) 100 mls @ 100 mls/hr IVPB Q8H [facility] PRN Reason: Protocol Stop: 02/21/17 11:01 Insulin Detemir (Levemir) 14 unit SC HS [facility] Last Admin: 02/12/17 22:04 Dose: 14 unit Insulin Human Regular (Humulin R High) 0 units SC ACHS [facility] PRN Reason: Protocol Last Admin: 02/13/17 08:30 Dose: Not Given Lactobacillus Acidophilus (Bacid Acidophilus) 1 cap PO BID [facility] Last Admin: 02/13/17 10:44 Dose: 1 cap Levothyroxine Sodium (Synthroid) 88 mcg PO 0600 [facility] Last Admin: 02/13/17 05:33 Dose: 88 mcg Metoprolol Succinate (Toprol Xl) 50 mg PO BRK [facility] Last Admin: 02/13/17 08:40 Dose: 50 mg Mupirocin (Bactroban Ointment) 0 gm TOP BID [facility] Last Admin: 02/13/17 10:46 Dose: 1 applic Oxycodone/Acetaminophen (Percocet 5/325 Mg Tab) 1 tab PO Q6H PRN PRN Reason: Pain, severe (8-10) Stop: 02/13/17 22:54 Last Admin: 02/12/17 13:42 Dose: 1 tab Pantoprazole Sodium (Protonix Ec Tab) 40 mg PO 0600 [facility] Last Admin: 02/13/17 05:33 Dose: 40 mg Rifaximin (Xifaxan) 550 mg PO DAILY [facility] PRN Reason: Protocol Last Admin: 02/13/17 10:44 Dose: 550 mg - Labs Labs: 02/11/17 06:10 02/13/17 05:30 PT 13.1 SECONDS (9.4-12.5) H 02/10/17 14:25 INR 1.20 (0.93-1.08) H 02/10/17 14:25 APTT 33.5 Seconds (25.1-36.5) 02/10/17 14:25 - Constitutional Appears: Well, Non-toxic, No Acute Distress - Extremities Exam Additional comments: VASC: DP and PT pulses palpable 2/4. CFT <3 seconds to all digits. Temperature gradient warm to warm b/l. No increase in warmth noted to left 4th digit. Nonpitting edema noted to left 4th digit. NEURO: Gross sensation diminished bilaterally. DERM: Left 4th digit erythema with ulceration #1 noted to lateral aspect measuring approximately 1.3 x 1.3 x 0.2 cm - ulcer noted to have a 100% fibrous base with macerated rim and serous drainage; no probe to bone/purulence/ tunneling/undermining noted. Left foot dorsolateral 5th digit healed ulceration #2 measuring approximately 0.2 x 0.2 x 0.1 cm with eschar cap and hyperkeratotic rim; no clinical signs of infection noted at this time. Right foot 4th digit ulceration #3 noted to lateral asepct measuring approximately 0.3 x 0.3 x 0.1 cm - ulcer noted to have a mixed fibrogranular base and macerated rim; no drainage/purulence/probe to bone/tunneling/undermining/ erythema noted; no clinical signs of infection noted at this time. Hyperkeratotic lesion noted to dorsolateral right 5th digit. ORTHO: Mild tenderness upon ROM of left 4th digit and upon palpation of ulceration. - Neurological Exam Neurological Exam: Alert, Awake, Oriented x3 - Psychiatric Exam Psychiatric exam: Normal Affect, Normal Mood Assessment and Plan - Assessment and Plan (Free Text) Assessment: 71 year old male patient with bilateral foot ulcerations 2/2 diabetic neuropathy Plan: Patient seen and evaluated at bedside Discussed with attending, Dr. Abbasi Afebrile Left foot XR reviewed - WNL Right foot XR reviewed - WNL Wound culture taken of left 4th digit- pseudomonas applied bactroban to bilateral foot ulcerations, DSD Continue abx per ID Podiatry will continue to follow patient while in house
[2017-02-13] MEDS: Oxycodone/Acetaminophen 5/325 mg Tab PO PRN (13:46)
--- NOTE | 2017-02-13 16:19 | PN ---
DATE: 02/13/2017 SUBJECTIVE: The patient is seen earlier today in room 566, bed 1. No fevers and no chills. Tolerating medications well. PHYSICAL EXAMINATION: VITAL SIGNS: Temperature is 98, blood pressure is 121/50, and respiratory rate of 16. HEENT: Unremarkable. NECK: Supple. LUNGS: Decreased breath sounds. HEART: Normal S1 and S2. ABDOMEN: Soft and nontender. LABORATORY DATA: Reveals white count of 5.7, hemoglobin of 10, and platelets of 109. Chemistries reveals BUN of 41 and creatinine of 3.3. Microbiology reveals Pseudomonas aeruginosa from the left foot culture, sensitive to cefepime and meropenem. Blood cultures are negative. Urine cultures are negative. ASSESSMENT AND PLAN: This is a 71-year-old male who was seen in 566, bed 1, with obesity, body mass index of 31, chronic liver disease, chronic polyps, chronic obstructive lung disease, hypertension, chronic renal failure, diabetes, and peripheral vascular disease with Pseudomonas,, cellulitis, and diabetic underlying osteomyelitis. We will discontinue Teflaro and start meropenem 250 mg IV q.8 hours due to her renal insufficiency, may be able to use a simple dose, rule out underlying osteomyelitis and vascular workup. Should have imaging to rule out underlying osteomyelitis. Check on the sed rate, C-reactive protein. Should have MRI if possible to rule out osteomyelitis. Moustapha Frankel MD
[2017-02-13] MEDS: Insulin Detemir 100 units/ml Vial (Levemir) SC SCH (21:18)
--- NOTE | 2017-02-13 23:27 | PN ---
DATE: 02/13/2017 SUBJECTIVE: The patient was seen this Tuesday morning in Room #566, bed 1 with his at the bedside. He is in bed, comfortable, awake, alert and clear. The vital signs are stable. Medications were reviewed. Case was discussed with Infectious Disease foreign legal consultant Dr. Moustapha Frankel. The patient and his were both concerned about the diarrhea, which they believe to be caused by the lactulose and questioning as sometimes at home he skips the dose. I also explained how my concern is that the diarrhea could be from C. diff. as well. So, we will hold the lactulose, check the ammonia level, check for C. diff, follow his labs and add probiotic. Physical exam remains essentially unchanged except for continued slow improvement in the erythema and swollen left foot. The ulcer between the fourth and fifth toe is being treated with topicals and dressing. Berto Reyes MD MTDD
--- NOTE | 2017-02-14 00:11 | CP.PCM.CON ---
History of Present Illness - History of Present Illness History of Present Illness: She is slightly better. He has episodes of loose bowel movement. Patient is on lactulose and also on Xifaxan. Ammonia Shows downward trend but still remains on a higher level. Past Patient History - Past Social History Smoking Status: Light Smoker < 10 Cigarettes Daily - CARDIAC Hx Cardiac Disorders: Yes Hx Congestive Heart Failure: Yes Hx Hypertension: Yes - PULMONARY Hx Respiratory Disorders: Yes (asbestosis) - NEUROLOGICAL Hx Neurological Disorder: Yes (neuropathy "all over" pt stated) - HEENT Hx Macular Degeneration: Yes - RENAL Hx Chronic Kidney Disease: No Hx Kidney Stones: Yes (several times) - ENDOCRINE/METABOLIC Hx Diabetes Mellitus Type 2: Yes Hx Hypothyroidism: Yes Other/Comment: metabolic encephalopathy - HEMATOLOGICAL/ONCOLOGICAL Hx Blood Disorders: No - INTEGUMENTARY Hx Dermatological Problems: No Other/Comment: B/L leg erythema. Edema +1 B/L - MUSCULOSKELETAL/RHEUMATOLOGICAL Hx Falls: No - GASTROINTESTINAL Hx Gastrointestinal Disorders: Yes (COLON POLYPS,CHOLECYSTECTOMY,METABOLIC ENCEPHALOPATHY,) - GENITOURINARY/GYNECOLOGICAL Hx Genitourinary Disorders: Yes - PSYCHIATRIC Hx Emotional Abuse: No Hx Physical Abuse: No Hx Substance Use: No - SURGICAL HISTORY Hx Cholecystectomy: Yes Other/Comment: hernia repair, b/l total knee replacement 1996, 2001, left pigtail stent, r elbow sx - ANESTHESIA Hx Anesthesia Reactions: No Hx Malignant Hyperthermia: No Meds Allergies/Adverse Reactions: Allergies Allergy/AdvReac Type Severity Reaction Status Date / Time No Known Allergies Allergy Verified 02/10/17 14:02 - Medications Medications: Current Medications Acetaminophen (Tylenol 325mg Tab) 650 mg PO Q4H PRN PRN Reason: Pain, moderate (4-7) Last Admin: 02/10/17 22:26 Dose: 650 mg Amlodipine Besylate (Norvasc) 5 mg PO BID [facility] Last Admin: 02/12/17 17:30 Dose: 5 mg Aspirin (Ecotrin) 81 mg PO DAILY [facility] Last Admin: 02/12/17 09:25 Dose: 81 mg Furosemide (Lasix) 40 mg PO DAILY [facility] Last Admin: 02/12/17 09:25 Dose: 40 mg Gabapentin (Neurontin) 300 mg PO BID [facility] PRN Reason: Protocol Last Admin: 02/12/17 17:31 Dose: 300 mg Ceftaroline Fosamil 300 mg/ (Sodium Chloride) 100 mls @ 100 mls/hr IVPB Q12 [facility] PRN Reason: Protocol Stop: 02/18/17 10:01 Last Admin: 02/12/17 22:05 Dose: 100 mls/hr Insulin Detemir (Levemir) 14 unit SC HS [facility] Last Admin: 02/12/17 22:04 Dose: 14 unit Insulin Human Regular (Humulin R High) 0 units SC ACHS [facility] PRN Reason: Protocol Last Admin: 02/12/17 22:03 Dose: 2 units Lactulose (Enulose) 20 gm PO HS [facility] Last Admin: 02/12/17 22:06 Dose: Not Given Levothyroxine Sodium (Synthroid) 88 mcg PO 0600 [facility] Last Admin: 02/12/17 05:27 Dose: 88 mcg Metoprolol Succinate (Toprol Xl) 50 mg PO BRK [facility] Last Admin: 02/12/17 08:37 Dose: 50 mg Mupirocin (Bactroban Ointment) 0 gm TOP BID [facility] Last Admin: 02/12/17 17:33 Dose: 1 applic Oxycodone/Acetaminophen (Percocet 5/325 Mg Tab) 1 tab PO Q6H PRN PRN Reason: Pain, severe (8-10) Stop: 02/13/17 22:54 Last Admin: 02/12/17 13:42 Dose: 1 tab Pantoprazole Sodium (Protonix Ec Tab) 40 mg PO 0600 [facility] Last Admin: 02/12/17 05:27 Dose: 40 mg Rifaximin (Xifaxan) 550 mg PO DAILY [facility] PRN Reason: Protocol Last Admin: 02/12/17 09:24 Dose: 550 mg Physical Exam - Head Exam Head Exam: ATRAUMATIC, NORMOCEPHALIC - Eye Exam Eye Exam: EOMI, PERRL - Respiratory Exam Respiratory Exam: NORMAL BREATHING PATTERN. absent: Rales, Rhonchi - Cardiovascular Exam Cardiovascular Exam: +S1, +S2 - GI/Abdominal Exam GI & Abdominal Exam: Soft Additional comments: Distended ascites present but less prominently than before - Extremities Exam Extremities exam: Positive for: full ROM. Negative for: calf tenderness, pedal edema - Neurological Exam Neurological exam: Alert, Altered, Oriented x3 Additional comments: No asterixis Results - Vital Signs Recent Vital Signs: Last Vital Signs Temp 97.7 F 02/12/17 16:02 Pulse 61 02/12/17 17:30 Resp 20 02/12/17 16:02 BP 117/61 02/12/17 17:30 Pulse Ox 100 02/12/17 16:02 - Labs Result Diagrams: 02/11/17 06:10 02/13/17 05:30 Labs: Laboratory Results - last 24 hr 02/12/17 02/12/17 02/12/17 07:40 11:20 15:59 POC Glucose (mg/dL) 147 H 293 H 236 H 02/12/17 21:10 POC Glucose (mg/dL) 318 H Assessment & Plan - Assessment and Plan (Free Text) Plan: This 71-year-old patient with decompensated cirrhosis congestive heart failure predominantly right-sided COPD chronic kidney disease refractory ascites now has cellulitis of the foot possible osteomyelitis Has elevated ammonia level also patient has diarrhea on lactulose and Xifaxan Follow-up will be ammonia levels consider titrating the dose of lactulose down The ascitic fluid is not that significant today for large-volume paracentesis will continue to closely follow per his care and suggest further recommendation based on the clinical course - Date & Time Date: 02/12/17 Time: 18:45
[2017-02-14] MEDS: Levothyroxine 88 MCG TAB PO SCH (05:17)
[2017-02-14] MEDS: Pantoprazole 40 mg EC Tab PO SCH (05:17)
[2017-02-14 06:51] LABS: BASO # 0.06 K/mm3 (0.0-2.0); BASO % 0.9 % (0.0-3.0); EOS # 0.2 (0.0-0.7); EOS % 3.5 % (1.5-5.0); GRAN # 4.33 (1.4-6.5); GRAN % 66.1 % (50.0-68.0); HEMATOCRIT 29.9 % (42.0-52.0); LYMPH # 1.3 (1.2-3.4); LYMPH % 20.2 % (22.0-35.0); MEAN CORPUSCULAR HEMOGLOBIN 32.9 pg (25.0-35.0); MEAN CORPUSCULAR HGB CONC 35.8 g/dl (31.0-37.0); MEAN PLATELET VOLUME 12.4 fl (7.0-11.0); MONO # 0.6 (0.1-0.6); MONO % 9.3 % (1.0-6.0); RED CELL DISTRIBUTION WIDTH 15.5 % (11.5-14.5); WHITE BLOOD COUNT 6.6 10^3/ul (4.5-11.0)
[2017-02-14 07:09] LABS: BILIRUBIN,TOTAL 1.5 mg/dL (0.2-1.3); CALCIUM 9.3 mg/dL (8.4-10.5); TOTAL PROTEIN 7.7 g/dL (5.8-8.3)
[2017-02-14] MEDS: Insulin Reg-HIGH-Coverage SC SCH ×4 (08:36→22:37)
[2017-02-14] MEDS: Metoprolol Succinate 50 mg XL Tab PO SCH (08:46)
--- NOTE | 2017-02-14 09:00 | CP.PCM.PN ---
Subjective - Date & Time of Evaluation Date of Evaluation: 02/14/17 Time of Evaluation: 15:00 - Subjective Subjective: Podiatry Progress Note - Dr. Abbasi 71 year old male patient seen and evaluated at bedside with attending, Dr. Abbasi , for bilateral foot ulcerations. Patient hemodynamically stable and NAD. Patient denies any acute events overnight. Patient reports decreased pain to left 4th toe. Denies N/V/F/D/C/SOB/calf pain. Offers no other pedal complaints at this time. Objective - Vital Signs/Intake and Output Vital Signs (last 24 hours): Temp Pulse Resp BP Pulse Ox 98.8 F 66 20 122/50 L 100 02/14/17 07:30 02/14/17 08:46 02/14/17 07:30 02/14/17 08:46 02/14/17 07:30 Intake and Output: 02/14/17 02/14/17 06:59 18:59 Intake Total 240 Balance 240 - Medications Medications: Current Medications Acetaminophen (Tylenol 325mg Tab) 650 mg PO Q4H PRN PRN Reason: Pain, moderate (4-7) Last Admin: 02/10/17 22:26 Dose: 650 mg Amlodipine Besylate (Norvasc) 5 mg PO BID [facility] Last Admin: 02/13/17 17:33 Dose: 5 mg Aspirin (Ecotrin) 81 mg PO DAILY [facility] Last Admin: 02/13/17 10:44 Dose: 81 mg Furosemide (Lasix) 40 mg PO DAILY [facility] Last Admin: 02/13/17 10:44 Dose: 40 mg Gabapentin (Neurontin) 300 mg PO BID [facility] PRN Reason: Protocol Last Admin: 02/13/17 17:35 Dose: 300 mg Meropenem 250 mg/ Sodium (Chloride) 100 mls @ 100 mls/hr IVPB Q8H [facility] PRN Reason: Protocol Stop: 02/21/17 11:01 Last Admin: 02/14/17 03:27 Dose: 100 mls/hr Insulin Detemir (Levemir) 14 unit SC HS [facility] Last Admin: 02/13/17 21:18 Dose: 14 unit Insulin Human Regular (Humulin R High) 0 units SC ACHS [facility] PRN Reason: Protocol Last Admin: 02/14/17 08:36 Dose: Not Given Lactobacillus Acidophilus (Bacid Acidophilus) 1 cap PO BID [facility] Last Admin: 02/13/17 17:37 Dose: 1 cap Levothyroxine Sodium (Synthroid) 88 mcg PO 0600 [facility] Last Admin: 02/14/17 05:17 Dose: 88 mcg Metoprolol Succinate (Toprol Xl) 50 mg PO BRK [facility] Last Admin: 02/14/17 08:46 Dose: 50 mg Mupirocin (Bactroban Ointment) 0 gm TOP BID [facility] Last Admin: 02/13/17 18:37 Dose: 1 applic Pantoprazole Sodium (Protonix Ec Tab) 40 mg PO 0600 [facility] Last Admin: 02/14/17 05:17 Dose: 40 mg Rifaximin (Xifaxan) 550 mg PO DAILY [facility] PRN Reason: Protocol Last Admin: 02/13/17 10:44 Dose: 550 mg - Labs Labs: 02/14/17 06:20 02/14/17 06:20 PT 13.1 SECONDS (9.4-12.5) H 02/10/17 14:25 INR 1.20 (0.93-1.08) H 02/10/17 14:25 APTT 33.5 Seconds (25.1-36.5) 02/10/17 14:25 - Constitutional Appears: Well, Non-toxic, No Acute Distress - Extremities Exam Additional comments: VASC: DP and PT pulses palpable 2/4. CFT <3 seconds to all digits. Temperature gradient warm to warm b/l. No increase in warmth noted to left 4th digit. Nonpitting edema noted to left 4th digit. NEURO: Gross sensation diminished bilaterally. DERM: Erythema noted to left 4th digit, resolving. Left 4th digit with ulceration #1 noted to lateral aspect measuring approximately 1.3 x 1.3 x 0.2 cm - ulcer noted to have a mixed fibronecrotic base with slough, macerated rim and serous drainage; no probe to bone/purulence/tunneling/undermining noted. Left foot dorsolateral 5th digit healed ulceration #2 measuring approximately 0.2 x 0.2 x 0.1 cm with eschar cap and hyperkeratotic rim; no clinical signs of infection noted at this time. Right foot 4th digit ulceration #3 noted to lateral asepct measuring approximately 0.3 x 0.3 x 0.1 cm - ulcer noted to have a mixed fibrogranular base and macerated rim; no drainage/purulence/probe to bone/tunneling/undermining/erythema noted; no clinical signs of infection noted at this time. Hyperkeratotic lesion noted to dorsolateral right 5th digit. ORTHO: Mild tenderness upon ROM of left 4th digit and upon palpation of ulceration. - Neurological Exam Neurological Exam: Alert, Awake, Oriented x3 - Psychiatric Exam Psychiatric exam: Normal Affect, Normal Mood Assessment and Plan - Assessment and Plan (Free Text) Assessment: 71 year old male patient with bilateral foot ulcerations 2/2 diabetic neuropathy Plan: Patient seen and evaluated at bedside with attending, Dr. Abbasi Afebrile, WBC 6.6 Left foot XR reviewed - WNL Right foot XR reviewed - WNL Left foot MRI reviewed -Minimal marrow edema in proximal and middle 4th phalanx. Significance uncertain. This could represent early OM Arterial duplex bilateral LE reviewed -Limited study due to calcified vessels. -Bilateral SFA disease, L>R -Bilateral tibial disease Wound culture taken of left 4th digit reveals growth of pseudomonas Applied bactroban to bilateral foot ulcerations, DSD -Santyl ordered for QD dressing changes Surgical shoe ordered for L foot -Patient WBAT in surgical shoe Continue abx per ID - Meropenem Podiatry will continue to follow patient while in house
[2017-02-14] MEDS: Lactobacillus Acidophilus 500 MU Cap PO SCH ×2 (10:12→18:13)
--- NOTE | 2017-02-14 10:24 | PN ---
DATE: 02/13/2017 SUBJECTIVE: This patient was seen and evaluated earlier. The patient feels much better, tolerating the diet. PHYSICAL EXAMINATION: VITAL SIGNS: Temperature is afebrile, blood pressure 113/59, pulse 80, respirations 20, and O2 saturation 97%. HEENT: Atraumatic and anicteric. NECK: Supple. HEART: S1 and S2 heard. LUNGS: Bilateral air entry present. ABDOMEN: Soft, less distended. EXTREMITIES: No cyanosis. No clubbing. LABORATORY DATA: Ammonia level is now 51. IMPRESSION: This 71-year-old patient with decompensated cirrhosis, history of chronic obstructive pulmonary disease, chronic kidney disease, peripheral vascular disease. The patient has diabetes with Pseudomonas cellulitis. The patient is now started on meropenem by ID ,Teflaro was discontinued. Dr. Berto Reyes's note was reviewed. I agree that the possibility of Clostridium diff has to be considered and he has a case in the past has been negative. We will request again stool for Clostridium diff. The consent in this patient, the patient is on . Presently, is off the lactulose. We will continue to closely follow up his care and followup of his stools and recommend further suggestion based on the clinical course. Reasonable option, his diarrhea still persist. Reasonable option is to consider empirically Flagyl. Thank you very much for allowing me to participate in the care of the patient. Delbert Mejia MD
--- NOTE | 2017-02-14 16:10 | MRI ---
PROCEDURE: MRI of the left foot without contrast HISTORY: r/o OM. PLEASE CUT 2MM SLICES COMPARISON: TECHNIQUE: MRI of the left foot was performed in multiple planes using multiple pulse sequences. FINDINGS: The study shows minimal marrow edema in the proximal and middle phalanx of the 4th toe. This is seen on sagittal image 27 series 5. On the axial images there is some increased signal intensity and multiple toes which is artifactual. This is not confirmed in other planes. There is no bony destruction. There is some subcutaneous edema over the dorsum of the foot. IMPRESSION: Minimal marrow edema in the proximal and middle 4th phalanx. Significance uncertain. This could represent early osteomyelitis.
--- NOTE | 2017-02-14 17:09 | US ---
PROCEDURE: Lower extremity IMTIAZ exam HISTORY: Peripheral vascular disease with pain and ulceration. Smoker. Diabetes. PHYSICIAN(S): Emery Dia MD. FINDINGS: The exam is limited by calcified noncompressible vessels bilaterally. The resting ABIs are not accurate The brachial systolic pressures are symmetric. The high thigh pressures are noncompressible. The high thigh PVR waveforms are normal and symmetric The right calf PVR waveform is relatively normal. However, it does not augment. The left calf PVR waveform is moderately blunted. Findings are consistent with bilateral SFA disease, greater on the left than the right. The right ankle PVR waveform is pulsatile and mildly blunted. The left ankle PVR waveform is moderately blunted IMPRESSION: 1. Limited study due to calcified vessels. 2. Bilateral SFA disease, greater on the left than the right. 3. Bilateral tibial disease.
--- NOTE | 2017-02-14 18:08 | CP.PCM.PN ---
Subjective - Date & Time of Evaluation Date of Evaluation: 02/14/17 Time of Evaluation: 12:05 - Subjective Subjective: Comfortable, less pain in the left foot, no fevers. Objective - Vital Signs/Intake and Output Vital Signs (last 24 hours): Temp Pulse Resp BP Pulse Ox 98.8 F 66 20 122/50 L 100 02/14/17 07:30 02/14/17 10:12 02/14/17 07:30 02/14/17 10:12 02/14/17 07:30 Intake and Output: 02/14/17 02/14/17 06:59 18:59 Intake Total 240 Balance 240 - Medications Medications: Current Medications Acetaminophen (Tylenol 325mg Tab) 650 mg PO Q4H PRN PRN Reason: Pain, moderate (4-7) Last Admin: 02/10/17 22:26 Dose: 650 mg Amlodipine Besylate (Norvasc) 5 mg PO BID [facility] Last Admin: 02/14/17 10:12 Dose: 5 mg Aspirin (Ecotrin) 81 mg PO DAILY [facility] Last Admin: 02/14/17 10:11 Dose: 81 mg Furosemide (Lasix) 40 mg PO DAILY [facility] Last Admin: 02/14/17 10:11 Dose: 40 mg Gabapentin (Neurontin) 300 mg PO BID [facility] PRN Reason: Protocol Last Admin: 02/14/17 10:11 Dose: 300 mg Meropenem 250 mg/ Sodium (Chloride) 100 mls @ 100 mls/hr IVPB Q8H [facility] PRN Reason: Protocol Stop: 02/21/17 11:01 Last Admin: 02/14/17 10:14 Dose: 100 mls/hr Insulin Detemir (Levemir) 14 unit SC HS [facility] Last Admin: 02/13/17 21:18 Dose: 14 unit Insulin Human Regular (Humulin R High) 0 units SC ACHS [facility] PRN Reason: Protocol Last Admin: 02/14/17 08:36 Dose: Not Given Lactobacillus Acidophilus (Bacid Acidophilus) 1 cap PO BID [facility] Last Admin: 02/14/17 10:12 Dose: 1 cap Levothyroxine Sodium (Synthroid) 88 mcg PO 0600 [facility] Last Admin: 02/14/17 05:17 Dose: 88 mcg Metoprolol Succinate (Toprol Xl) 50 mg PO BRK [facility] Last Admin: 12/04/17 08:46 Dose: 50 mg Mupirocin (Bactroban Ointment) 0 gm TOP BID [facility] Last Admin: 02/14/17 10:13 Dose: 1 applic Pantoprazole Sodium (Protonix Ec Tab) 40 mg PO 0600 [facility] Last Admin: 02/14/17 05:17 Dose: 40 mg Rifaximin (Xifaxan) 550 mg PO DAILY [facility] PRN Reason: Protocol Last Admin: 02/14/17 10:11 Dose: 550 mg - Labs Labs: 02/14/17 06:20 02/14/17 06:20 PT 13.1 SECONDS (9.4-12.5) H 02/10/17 14:25 INR 1.20 (0.93-1.08) H 02/10/17 14:25 APTT 33.5 Seconds (25.1-36.5) 02/10/17 14:25 - Constitutional Appears: Non-toxic - Head Exam Head Exam: NORMAL INSPECTION - ENT Exam ENT Exam: Mucous Membranes Moist - Neck Exam Neck Exam: absent: Meningismus - Respiratory Exam Respiratory Exam: Decreased Breath Sounds - Cardiovascular Exam Cardiovascular Exam: +S1, +S2 - GI/Abdominal Exam GI & Abdominal Exam: Soft. absent: Tenderness - Extremities Exam Additional comments: left foot with dressings in place Assessment and Plan - Assessment and Plan (Free Text) Plan: Assessment Consider left foot cellulitis in a patient with DM and peripheral vascular disease, growing PSeudomonas, R/O osteomyelitis obesity with BMI 31 chronic liver disease history of colonic polyps atrial fibrillation COPD HTN chronic renal failure DM peripheral vascular disease asbestosis Plan continue MErrem pending MRI of the foot; reviewed Podiatry evaluation and recommendations will monitor clinically
[2017-02-14] MEDS: Insulin Detemir 100 units/ml Vial (Levemir) SC SCH (22:36)
[2017-02-15] MEDS: Pantoprazole 40 mg EC Tab PO SCH (05:45)
[2017-02-15] MEDS: Levothyroxine 88 MCG TAB PO SCH (05:45)
[2017-02-15 06:49] LABS: HEMATOCRIT 26.6 % (42.0-52.0); MEAN CELL VOLUME 91.4 fl (80.0-105.0); MEAN CORPUSCULAR HEMOGLOBIN 33.7 pg (25.0-35.0); MEAN CORPUSCULAR HGB CONC 36.8 g/dl (31.0-37.0); MEAN PLATELET VOLUME 10.9 fl (7.0-11.0); RED CELL DISTRIBUTION WIDTH 15.3 % (11.5-14.5); WHITE BLOOD COUNT 5.5 10^3/ul (4.5-11.0)
[2017-02-15 07:27] LABS: CALCIUM 8.7 mg/dL (8.4-10.5); POTASSIUM 4.2 mmol/L (3.6-5.0)
[2017-02-15] MEDS: Insulin Reg-HIGH-Coverage SC SCH ×4 (09:02→22:53)
--- NOTE | 2017-02-15 10:57 | PN ---
DATE: SUBJECTIVE: This patient was seen and evaluated earlier today. Patient is comfortable, tolerating the diet, more alert. PHYSICAL EXAMINATION: VITAL SIGNS: Temperature is 97.7, blood pressure is 135/60, pulse 68. HEENT: Atraumatic. Anicteric. NECK: Supple. HEART: S1 and S2 heard. LUNGS: Bilateral air entry present. ABDOMEN: Soft, no tenderness. EXTREMITIES: No edema. No cyanosis. No clubbing. LABORATORY DATA: Hemoglobin 10.7, hematocrit 29.9, WBC 6.6, platelets 126. BUN 46, creatinine 3.6. Total bilirubin 1.5, AST 73 and ammonia level yesterday was 51. IMPRESSION: A 71-year-old patient with decompensated cirrhosis, ascites, chronic obstructive pulmonary disease, chronic kidney disease, and diabetes mellitus, pseudomonas cellulitis, had diarrhea, which is improved after stopping the lactulose. The patient is on meropenem, now antibiotics. RECOMMENDATIONS: We would recommend now: 1. Continue the Xifaxan. 2. Cautious use of meropenem now. The patient has refractory ascites, may need large volume paracentesis if the ascites is the major issue. Would continue Xifaxan, may add lactulose based on the ammonia level and also clinical status with regard to the hepatic encephalopathy. Lactulose has been on hold. No diarrhea at the present time. We will continue to closely follow up his care. Thank you very much for allowing us to participate in the care of the patient. Delbert Mejia MD
[2017-02-15] MEDS: Metoprolol Succinate 50 mg XL Tab PO SCH (11:15)
[2017-02-15] MEDS: Lactobacillus Acidophilus 500 MU Cap PO SCH ×2 (11:16→18:45)
--- NOTE | 2017-02-15 12:32 | CP.PCM.PN ---
Subjective - Date & Time of Evaluation Date of Evaluation: 02/15/17 Time of Evaluation: 12:31 - Subjective Subjective: Podiatry Progress Note - Dr. Abbasi 71 year old male patient seen and evaluated at bedside for bilateral foot ulceration. Patient hemodynamically stable and NAD. Family present at bedside. Denies any acute vents overnight. Patient believes his left 4th toe is improving ; denies any changes to his right 4th toe. Denies N/V/F/D/C/SOB/calf pain. Offers no other pedal complaints today. Objective - Vital Signs/Intake and Output Vital Signs (last 24 hours): Temp Pulse Resp BP Pulse Ox 98.5 F 62 18 110/62 97 02/15/17 07:30 02/15/17 11:17 02/15/17 07:30 02/15/17 11:17 02/15/17 07:30 Intake and Output: 02/15/17 02/15/17 06:59 18:59 Intake Total 600 Balance 600 - Medications Medications: Current Medications Acetaminophen (Tylenol 325mg Tab) 650 mg PO Q4H PRN PRN Reason: Pain, moderate (4-7) Last Admin: 02/10/17 22:26 Dose: 650 mg Amlodipine Besylate (Norvasc) 5 mg PO BID [facility] Last Admin: 02/15/17 11:17 Dose: 5 mg Aspirin (Ecotrin) 81 mg PO DAILY [facility] Last Admin: 02/15/17 11:17 Dose: 81 mg Collagenase (Santyl) 0 gm TOP DAILY [facility] Furosemide (Lasix) 40 mg PO DAILY [facility] Last Admin: 02/15/17 11:15 Dose: 40 mg Gabapentin (Neurontin) 300 mg PO BID [facility] PRN Reason: Protocol Last Admin: 02/15/17 11:16 Dose: 300 mg Meropenem 250 mg/ Sodium (Chloride) 100 mls @ 100 mls/hr IVPB Q8H [facility] PRN Reason: Protocol Stop: 02/21/17 11:01 Last Admin: 02/15/17 03:29 Dose: 100 mls/hr Insulin Detemir (Levemir) 14 unit SC HS [facility] Last Admin: 02/14/17 22:36 Dose: 14 unit Insulin Human Regular (Humulin R High) 0 units SC ACHS [facility] PRN Reason: Protocol Last Admin: 02/15/17 09:02 Dose: Not Given Lactobacillus Acidophilus (Bacid Acidophilus) 1 cap PO BID [facility] Last Admin: 02/15/17 11:16 Dose: 1 cap Levothyroxine Sodium (Synthroid) 88 mcg PO 0600 [facility] Last Admin: 02/15/17 05:45 Dose: 88 mcg Metoprolol Succinate (Toprol Xl) 50 mg PO BRK [facility] Last Admin: 02/15/17 11:15 Dose: 50 mg Mupirocin (Bactroban Ointment) 0 gm TOP BID [facility] Last Admin: 02/14/17 18:13 Dose: 1 applic Pantoprazole Sodium (Protonix Ec Tab) 40 mg PO 0600 [facility] Last Admin: 02/15/17 05:45 Dose: 40 mg Rifaximin (Xifaxan) 550 mg PO DAILY [facility] PRN Reason: Protocol Last Admin: 02/15/17 11:15 Dose: 550 mg - Labs Labs: 02/15/17 06:15 02/15/17 06:15 PT 13.1 SECONDS (9.4-12.5) H 02/10/17 14:25 INR 1.20 (0.93-1.08) H 02/10/17 14:25 APTT 33.5 Seconds (25.1-36.5) 02/10/17 14:25 - Constitutional Appears: Well, Non-toxic, No Acute Distress - Extremities Exam Additional comments: Dressings to bilateral 4th digit have been removed. VASC: DP and PT pulses palpable 2/4. CFT <3 seconds to all digits. Temperature gradient warm to warm b/l. No increase in warmth noted to left 4th digit. Nonpitting edema noted to left 4th digit, decreasing. NEURO: Gross sensation diminished bilaterally. DERM: Erythema noted to left 4th digit, resolving. Left 4th digit with ulceration #1 noted to lateral aspect measuring approximately 1.3 x 1.3 x 0.2 cm - ulcer noted to have a mixed fibronecrotic base with fibrin/slough, macerated rim and serous drainage; no probe to bone/purulence/tunneling/ undermining noted. Left foot dorsolateral 5th digit healed ulceration #2 measuring approximately 0.2 x 0.2 x 0.1 cm with eschar cap and hyperkeratotic rim; no clinical signs of infection noted at this time. Right foot 4th digit ulceration #3 noted to lateral asepct measuring approximately 0.3 x 0.3 x 0.1 cm - ulcer noted to have a mixed fibrogranular base and macerated rim; no drainage/purulence/probe to bone/tunneling/undermining/erythema noted; no clinical signs of infection noted at this time. Hyperkeratotic lesion noted to dorsolateral right 5th digit. ORTHO: Mild tenderness upon ROM of left 4th digit and upon palpation of ulceration. - Neurological Exam Neurological Exam: Alert, Awake, Oriented x3 - Psychiatric Exam Psychiatric exam: Normal Affect, Normal Mood Assessment and Plan - Assessment and Plan (Free Text) Assessment: 71 year old male patient with bilateral foot ulcerations 2/2 diabetic neuropathy Plan: Patient seen and evaluated at bedside Disucssed with attending, Dr. Abbasi Afebrile, WBC 5.5 Left foot XR reviewed - WNL Right foot XR reviewed - WNL Left foot MRI reviewed -Minimal marrow edema in proximal and middle 4th phalanx. Significance uncertain. This could represent early OM Arterial duplex bilateral LE reviewed -Limited study due to calcified vessels. -Bilateral SFA disease, L>R -Bilateral tibial disease Wound culture taken of left 4th digit reveals growth of pseudomonas Discussed with patient and family at length that MRI is suspicious for OM proximal and middle phalanx left 4th digit, and informed patient of terminologist abx vs. amputation with postoperative course. Patient and family demonstrate verbal understanding. Santyl applied to left foot 4th digit wound and dressed with DSD Bactroban applied to right foot 4th digit wound and dressed with DSD Patient WBAT in surgical shoe Continue abx per ID - Meropenem Podiatry will continue to follow patient while in house
[2017-02-15] MEDS: Collagenase 250 Units/gm Ointment(30 gm) TOP SCH (12:37)
--- NOTE | 2017-02-15 14:33 | CP.PCM.PN ---
<Darline Hannah - Last Filed: 02/15/17 14:33> Subjective - Date & Time of Evaluation Date of Evaluation: 02/15/17 Time of Evaluation: 11:05 - Subjective Subjective: S&E at bedside, chart reviewed, family at bedside, had MRI foot, report early osteomyelitis. no episode of diarrhea since off Lactulose per pT, stool cdiff sent and results are pending. No new complaints. Objective - Vital Signs/Intake and Output Vital Signs (last 24 hours): Temp Pulse Resp BP Pulse Ox 98.5 F 62 18 110/62 97 02/15/17 07:30 02/15/17 11:17 02/15/17 07:30 02/15/17 11:17 02/15/17 07:30 Intake and Output: 02/15/17 02/15/17 06:59 18:59 Intake Total 600 Balance 600 - Medications Medications: Current Medications Acetaminophen (Tylenol 325mg Tab) 650 mg PO Q4H PRN PRN Reason: Pain, moderate (4-7) Last Admin: 02/10/17 22:26 Dose: 650 mg Amlodipine Besylate (Norvasc) 5 mg PO BID [facility] Last Admin: 02/15/17 11:17 Dose: 5 mg Aspirin (Ecotrin) 81 mg PO DAILY [facility] Last Admin: 02/15/17 11:17 Dose: 81 mg Collagenase (Santyl) 0 gm TOP DAILY [facility] Last Admin: 02/15/17 12:37 Dose: 1 oin Furosemide (Lasix) 40 mg PO DAILY [facility] Last Admin: 02/15/17 11:15 Dose: 40 mg Gabapentin (Neurontin) 300 mg PO BID [facility] PRN Reason: Protocol Last Admin: 02/15/17 11:16 Dose: 300 mg Meropenem 250 mg/ Sodium (Chloride) 100 mls @ 100 mls/hr IVPB Q8H [facility] PRN Reason: Protocol Stop: 02/21/17 11:01 Last Admin: 02/15/17 12:36 Dose: 100 mls/hr Insulin Detemir (Levemir) 14 unit SC HS [facility] Last Admin: 02/14/17 22:36 Dose: 14 unit Insulin Human Regular (Humulin R High) 0 units SC ACHS [facility] PRN Reason: Protocol Last Admin: 02/15/17 12:35 Dose: 7 units Lactobacillus Acidophilus (Bacid Acidophilus) 1 cap PO BID [facility] Last Admin: 02/15/17 11:16 Dose: 1 cap Levothyroxine Sodium (Synthroid) 88 mcg PO 0600 [facility] Last Admin: 02/15/17 05:45 Dose: 88 mcg Metoprolol Succinate (Toprol Xl) 50 mg PO BRK [facility] Last Admin: 02/15/17 11:15 Dose: 50 mg Mupirocin (Bactroban Ointment) 0 gm TOP BID [facility] Last Admin: 02/15/17 12:35 Dose: 1 applic Pantoprazole Sodium (Protonix Ec Tab) 40 mg PO 0600 [facility] Last Admin: 02/15/17 05:45 Dose: 40 mg Rifaximin (Xifaxan) 550 mg PO DAILY [facility] PRN Reason: Protocol Last Admin: 02/15/17 11:15 Dose: 550 mg - Labs Labs: 02/15/17 06:15 02/15/17 06:15 PT 13.1 SECONDS (9.4-12.5) H 02/10/17 14:25 INR 1.20 (0.93-1.08) H 02/10/17 14:25 APTT 33.5 Seconds (25.1-36.5) 02/10/17 14:25 - Constitutional Appears: No Acute Distress - Head Exam Head Exam: NORMOCEPHALIC - Eye Exam Eye Exam: Normal appearance. absent: Scleral icterus - ENT Exam ENT Exam: Mucous Membranes Moist - Neck Exam Neck Exam: Normal Inspection - Respiratory Exam Respiratory Exam: NORMAL BREATHING PATTERN. absent: Respiratory Distress - Cardiovascular Exam Cardiovascular Exam: +S1, +S2 - GI/Abdominal Exam GI & Abdominal Exam: Soft, Normal Bowel Sounds. absent: Guarding, Tenderness, Rebound - Extremities Exam Extremities Exam: absent: Calf Tenderness Additional comments: bilateral toes w/ dressing in place, (+) erythema on both legs - Neurological Exam Neurological Exam: Alert, Awake, Oriented x3 - Skin Skin Exam: Dry, Warm Assessment and Plan - Assessment and Plan (Free Text) Assessment: ASSESSMENT: Hepatic Cirrhosis H/O Hepatic encephelopathy H/O Excessive alcohol in the past Abdominal Ascites Lower extremity cellulitis, s/p MRI ? early osteomyelitis, Left foot C&S (+) Pseudomonas Aerongenosa PAD DM PLAN: on IV antibiotics as per ID diet as tolerated continue PPI on Xiafaxin monitor LFT FU stool cdiff as per ID/Podiatry Seen and examined w/ Dr. Mejia. <Delbert Mejia V - Last Filed: 02/15/17 22:06> Objective - Vital Signs/Intake and Output Vital Signs (last 24 hours): Temp Pulse Resp BP Pulse Ox 97.5 F L 68 18 135/60 100 02/15/17 16:00 02/15/17 18:45 02/15/17 16:00 02/15/17 18:45 02/15/17 16:00 Intake and Output: 02/15/17 02/16/17 18:59 06:59 Intake Total 1250 Balance 1250 - Medications Medications: Current Medications Acetaminophen (Tylenol 325mg Tab) 650 mg PO Q4H PRN PRN Reason: Pain, moderate (4-7) Last Admin: 02/10/17 22:26 Dose: 650 mg Amlodipine Besylate (Norvasc) 5 mg PO BID [facility] Last Admin: 02/15/17 18:45 Dose: 5 mg Aspirin (Ecotrin) 81 mg PO DAILY [facility] Last Admin: 02/15/17 11:17 Dose: 81 mg Collagenase (Santyl) 0 gm TOP DAILY [facility] Last Admin: 02/15/17 12:37 Dose: 1 oin Furosemide (Lasix) 40 mg PO DAILY [facility] Last Admin: 02/15/17 11:15 Dose: 40 mg Gabapentin (Neurontin) 300 mg PO BID [facility] PRN Reason: Protocol Last Admin: 02/15/17 18:47 Dose: 300 mg Meropenem 250 mg/ Sodium (Chloride) 100 mls @ 100 mls/hr IVPB Q8H [facility] PRN Reason: Protocol Stop: 02/21/17 11:01 Last Admin: 02/15/17 21:00 Dose: 100 mls/hr Insulin Detemir (Levemir) 14 unit SC HS [facility] Last Admin: 02/14/17 22:36 Dose: 14 unit Insulin Human Regular (Humulin R High) 0 units SC ACHS [facility] PRN Reason: Protocol Last Admin: 02/15/17 18:39 Dose: 10 units Lactobacillus Acidophilus (Bacid Acidophilus) 1 cap PO BID [facility] Last Admin: 02/15/17 18:45 Dose: 1 cap Levothyroxine Sodium (Synthroid) 88 mcg PO 0600 [facility] Last Admin: 02/15/17 05:45 Dose: 88 mcg Metoprolol Succinate (Toprol Xl) 50 mg PO BRK [facility] Last Admin: 02/15/17 11:15 Dose: 50 mg Mupirocin (Bactroban Ointment) 0 gm TOP BID [facility] Last Admin: 02/15/17 18:39 Dose: 1 applic Pantoprazole Sodium (Protonix Ec Tab) 40 mg PO 0600 [facility] Last Admin: 02/15/17 05:45 Dose: 40 mg Rifaximin (Xifaxan) 550 mg PO DAILY [facility] PRN Reason: Protocol Last Admin: 02/15/17 11:15 Dose: 550 mg - Labs Labs: 02/15/17 06:15 02/15/17 06:15 PT 13.1 SECONDS (9.4-12.5) H 02/10/17 14:25 INR 1.20 (0.93-1.08) H 02/10/17 14:25 APTT 33.5 Seconds (25.1-36.5) 02/10/17 14:25 Attending/Attestation - Attestation I have personally seen and examined this patient.: Yes I have fully participated in the care of the patient.: Yes I have reviewed all pertinent clinical information, including history, physical exam and plan: Yes Notes (Text): This is an addendum to GI progress report dictated by Darline Hannah APN.The patient was seen and examined earlier. Medical records, lab studies, imagings were reviewed. Last 24 hours events reviewed. Agreed with the above treatment plan as outlined in Darline Hannah APN's notes the with the addition of the following patient is a comfortable Abdomen soft no tenderness Patient is off lactulose only on xifaxan twice a day Follow ammonia levels we'll titrate the dose based on the ammonia level and the clinical status. Patient did develop significant diarrhea this admission while on lactulose as patient is also on antibiotics follow-up stool for C. difficile 02/15/17 22:03
--- NOTE | 2017-02-15 18:17 | PN ---
DATE: 02/15/2017 SUBJECTIVE: The patient is in bed in no acute distress, nontoxic. PHYSICAL EXAMINATION: VITAL SIGNS: Temperature is 98, blood pressure is 102/40, respiratory rate of 18, heart rate of 56. HEENT: Unremarkable. NECK: Supple. LUNGS: Have decreased breath sounds. HEART: Normal S1, S2. ABDOMEN: Soft, nontender. LABORATORY EXAMINATION: Reveals a white count of 5.5, hemoglobin of 9, platelets of 100. Chemistries reveals a BUN of 46, creatinine of 3.5. Urinalysis is noted and microbiology reveals Pseudomonas in the left foot culture. MRI shows early osteomyelitis. The Pseudomonas is sensitive to Cipro and the EKG reveals the patient's QTC of 484. ASSESSMENT AND PLAN: This is a 71-year-old with Pseudomonas left foot cellulitis and osteomyelitis in a patient with diabetes mellitus, peripheral vascular disease with obesity and chronic liver disease and colonic polyps, atrial fibrillation, chronic obstructive pulmonary disease, hypertension, diabetes, and renal disease, peripheral vascular disease. We will continue the meropenem. We will need 4 to 6 weeks of antibiotics. Maybe able to use Cipro although the QTC is over 480, relative contraindication to use of Cipro here should have a sed rate from yesterday was 34 once weekly and C-reactive protein of greater than 15 once weekly in addition to CBC, SMA-18 once weekly. We will follow with you. Moustapha Frankel MD
[2017-02-15] MEDS: Insulin Detemir 100 units/ml Vial (Levemir) SC SCH (22:52)
[2017-02-16] MEDS: Pantoprazole 40 mg EC Tab PO SCH (05:07)
[2017-02-16] MEDS: Levothyroxine 88 MCG TAB PO SCH (05:07)
[2017-02-16] MEDS: Insulin Reg-HIGH-Coverage SC SCH ×4 (08:33→22:20)
[2017-02-16] MEDS: Metoprolol Succinate 50 mg XL Tab PO SCH (08:56)
[2017-02-16] MEDS: Lactobacillus Acidophilus 500 MU Cap PO SCH ×2 (09:43→17:09)
[2017-02-16] MEDS: Collagenase 250 Units/gm Ointment(30 gm) TOP SCH (09:44)
--- NOTE | 2017-02-16 10:49 | CP.PCM.PN ---
Subjective - Date & Time of Evaluation Date of Evaluation: 02/16/17 Time of Evaluation: 10:10 - Subjective Subjective: S&E at bedside this am, chart reviewed, no acute overnight events reported, BM is soft formed, no overt GI bleeding. No N/V or abdominal pain. Tolerating oral intake, does get foot pain. Making decision regarding foot surgery, at bedside. Objective - Vital Signs/Intake and Output Vital Signs (last 24 hours): Temp Pulse Resp BP Pulse Ox 97.4 F L 60 19 130/62 97 02/16/17 07:30 02/16/17 09:48 02/16/17 07:30 02/16/17 09:48 02/16/17 07:30 Intake and Output: 02/16/17 02/16/17 06:59 18:59 Intake Total 600 Balance 600 - Medications Medications: Current Medications Acetaminophen (Tylenol 325mg Tab) 650 mg PO Q4H PRN PRN Reason: Pain, moderate (4-7) Last Admin: 02/10/17 22:26 Dose: 650 mg Amlodipine Besylate (Norvasc) 5 mg PO BID [facility] Last Admin: 02/16/17 09:48 Dose: 5 mg Aspirin (Ecotrin) 81 mg PO DAILY [facility] Last Admin: 02/16/17 09:44 Dose: 81 mg Collagenase (Santyl) 0 gm TOP DAILY [facility] Last Admin: 02/16/17 09:44 Dose: Not Given Furosemide (Lasix) 40 mg PO DAILY [facility] Last Admin: 02/16/17 09:48 Dose: 40 mg Gabapentin (Neurontin) 300 mg PO BID [facility] PRN Reason: Protocol Last Admin: 02/16/17 09:43 Dose: 300 mg Meropenem 250 mg/ Sodium (Chloride) 100 mls @ 100 mls/hr IVPB Q8H [facility] PRN Reason: Protocol Stop: 02/21/17 11:01 Last Admin: 02/16/17 10:17 Dose: 100 mls/hr Insulin Detemir (Levemir) 14 unit SC HS [facility] Last Admin: 02/15/17 22:52 Dose: 14 unit Insulin Human Regular (Humulin R High) 0 units SC ACHS [facility] PRN Reason: Protocol Last Admin: 02/16/17 08:33 Dose: Not Given Lactobacillus Acidophilus (Bacid Acidophilus) 1 cap PO BID [facility] Last Admin: 02/16/17 09:43 Dose: 1 cap Levothyroxine Sodium (Synthroid) 88 mcg PO 0600 [facility] Last Admin: 02/16/17 05:07 Dose: 88 mcg Metoprolol Succinate (Toprol Xl) 50 mg PO BRK [facility] Last Admin: 02/16/17 08:56 Dose: Not Given Mupirocin (Bactroban Ointment) 0 gm TOP BID [facility] Last Admin: 02/16/17 09:44 Dose: Not Given Pantoprazole Sodium (Protonix Ec Tab) 40 mg PO 0600 [facility] Last Admin: 02/16/17 05:07 Dose: 40 mg Rifaximin (Xifaxan) 550 mg PO DAILY [facility] PRN Reason: Protocol Last Admin: 02/16/17 09:43 Dose: 550 mg - Labs Labs: 02/15/17 06:15 02/15/17 06:15 PT 13.1 SECONDS (9.4-12.5) H 02/10/17 14:25 INR 1.20 (0.93-1.08) H 02/10/17 14:25 APTT 33.5 Seconds (25.1-36.5) 02/10/17 14:25 - Constitutional Appears: No Acute Distress - Eye Exam Eye Exam: Normal appearance. absent: Scleral icterus - ENT Exam ENT Exam: Mucous Membranes Moist - Neck Exam Neck Exam: Normal Inspection - Respiratory Exam Respiratory Exam: NORMAL BREATHING PATTERN. absent: Respiratory Distress - Cardiovascular Exam Cardiovascular Exam: +S1, +S2 - GI/Abdominal Exam GI & Abdominal Exam: Soft, Normal Bowel Sounds. absent: Guarding, Tenderness, Rebound - Neurological Exam Neurological Exam: Alert, Awake, Oriented x3 - Skin Skin Exam: Dry, Warm Assessment and Plan - Assessment and Plan (Free Text) Assessment: ASSESSMENT: Hepatic Cirrhosis H/O Hepatic encephelopathy H/O Excessive alcohol in the past Abdominal Ascites Lower extremity cellulitis, s/p MRI ? early osteomyelitis, Left foot C&S (+) Pseudomonas Aerongenosa PAD DM PLAN: on IV antibiotics as per ID diet as tolerated continue PPI on Xiafaxin monitor LFT check ammonia level as per ID/Podiatry family to make decision regarding foot surgery. Seen and examined w/ Dr. Mejia.
--- NOTE | 2017-02-16 11:45 | CP.PCM.PN ---
Subjective - Date & Time of Evaluation Date of Evaluation: 02/16/17 Time of Evaluation: 11:45 - Subjective Subjective: Podiatry Progress Note - Dr. Abbasi 71 year old male patient seen and evaluated at bedside for bilateral foot ulceration. Patient hemodynamically stable and NAD. Dressings clean/dry/intact. Patient is accompanied by his at bedside. Admits the pain in his left 4th toe waxes and wanes. Denies N/V/F/D/C/SOB. Offers no other pedal complaints at this time. Objective - Vital Signs/Intake and Output Vital Signs (last 24 hours): Temp Pulse Resp BP Pulse Ox 97.4 F L 60 19 130/62 97 02/16/17 07:30 02/16/17 09:48 02/16/17 07:30 02/16/17 09:48 02/16/17 07:30 Intake and Output: 02/16/17 02/16/17 06:59 18:59 Intake Total 600 Balance 600 - Medications Medications: Current Medications Acetaminophen (Tylenol 325mg Tab) 650 mg PO Q4H PRN PRN Reason: Pain, moderate (4-7) Last Admin: 02/10/17 22:26 Dose: 650 mg Amlodipine Besylate (Norvasc) 5 mg PO BID [facility] Last Admin: 02/16/17 09:48 Dose: 5 mg Aspirin (Ecotrin) 81 mg PO DAILY [facility] Last Admin: 02/16/17 09:44 Dose: 81 mg Collagenase (Santyl) 0 gm TOP DAILY [facility] Last Admin: 02/16/17 09:44 Dose: Not Given Furosemide (Lasix) 40 mg PO DAILY [facility] Last Admin: 02/16/17 09:48 Dose: 40 mg Gabapentin (Neurontin) 300 mg PO BID [facility] PRN Reason: Protocol Last Admin: 02/16/17 09:43 Dose: 300 mg Meropenem 250 mg/ Sodium (Chloride) 100 mls @ 100 mls/hr IVPB Q8H [facility] PRN Reason: Protocol Stop: 02/21/17 11:01 Last Admin: 02/16/17 10:17 Dose: 100 mls/hr Insulin Detemir (Levemir) 14 unit SC HS [facility] Last Admin: 02/15/17 22:52 Dose: 14 unit Insulin Human Regular (Humulin R High) 0 units SC ACHS [facility] PRN Reason: Protocol Last Admin: 02/16/17 08:33 Dose: Not Given Lactobacillus Acidophilus (Bacid Acidophilus) 1 cap PO BID [facility] Last Admin: 02/16/17 09:43 Dose: 1 cap Levothyroxine Sodium (Synthroid) 88 mcg PO 0600 [facility] Last Admin: 02/16/17 05:07 Dose: 88 mcg Metoprolol Succinate (Toprol Xl) 50 mg PO BRK [facility] Last Admin: 02/16/17 08:56 Dose: Not Given Mupirocin (Bactroban Ointment) 0 gm TOP BID [facility] Last Admin: 02/16/17 09:44 Dose: Not Given Pantoprazole Sodium (Protonix Ec Tab) 40 mg PO 0600 [facility] Last Admin: 02/16/17 05:07 Dose: 40 mg Rifaximin (Xifaxan) 550 mg PO DAILY [facility] PRN Reason: Protocol Last Admin: 02/16/17 09:43 Dose: 550 mg - Labs Labs: 02/15/17 06:15 02/15/17 06:15 PT 13.1 SECONDS (9.4-12.5) H 02/10/17 14:25 INR 1.20 (0.93-1.08) H 02/10/17 14:25 APTT 33.5 Seconds (25.1-36.5) 02/10/17 14:25 - Constitutional Appears: Well, Non-toxic, No Acute Distress - Extremities Exam Additional comments: Dressings to bilateral LE appear clean/dry/intact with no strikethrough noted. VASC: DP and PT pulses palpable 2/4. CFT <3 seconds to all digits. Temperature gradient warm to warm b/l. No increase in warmth noted to left 4th digit. Nonpitting edema noted to left 4th digit. NEURO: Gross sensation diminished bilaterally. DERM: Erythema noted to left 4th digit, resolving. Left 4th digit with ulceration #1 noted to lateral aspect measuring approximately 1.3 x 1.3 x 0.2 cm - ulcer noted to have a mixed granular/fibrous/necrotic base with fibrin/ slough - necrotic sloughing appears to be decreased at this visit with increase in granulation, macerated rim and serous drainage; no probe to bone/purulence/ tunneling/undermining noted. Left foot dorsolateral 5th digit healed ulceration #2 measuring approximately 0.2 x 0.2 x 0.1 cm with eschar cap and hyperkeratotic rim; no clinical signs of infection noted at this time. Right foot 4th digit ulceration #3 noted to lateral asepct measuring approximately 0.3 x 0.3 x 0.1 cm - ulcer noted to have a mixed fibrogranular base; no drainage /purulence/probe to bone/tunneling/undermining/erythema noted; no clinical signs of infection noted at this time. Hyperkeratotic lesion noted to dorsolateral right 5th digit. ORTHO: Mild tenderness upon ROM of left 4th digit and upon palpation of ulceration. - Neurological Exam Neurological Exam: Alert, Awake, Oriented x3 - Psychiatric Exam Psychiatric exam: Normal Affect, Normal Mood Assessment and Plan - Assessment and Plan (Free Text) Assessment: 71 year old male patient with bilateral foot ulcerations 2/2 diabetic neuropathy Plan: Patient seen and evaluated at bedside Disucssed with attending, Dr. Abbasi Afebrile, WBC 5.5 yesterday Left foot XR reviewed - WNL Right foot XR reviewed - WNL Left foot MRI reviewed -Minimal marrow edema in proximal and middle 4th phalanx. Significance uncertain. This could represent early OM Arterial duplex bilateral LE reviewed -Limited study due to calcified vessels. -Bilateral SFA disease, L>R -Bilateral tibial disease -Vascular recs appreciated Wound culture taken of left 4th digit reveals growth of pseudomonas, ID recs appreciated -Continue abx per ID - Meropenem Discussed with patient and family at length that MRI is suspicious for OM proximal and middle phalanx left 4th digit, and informed patient of intermediate abx vs. amputation with postoperative course. Patient and family demonstrate verbal understanding. Continue local wound care -Santyl applied to left foot 4th digit wound and dressed with DSD -Bactroban applied to right foot 4th digit wound and dressed with DSD Patient WBAT in surgical shoe Podiatry will continue to follow patient while in house
[2017-02-16] MEDS ORDERED: Cefepime 1gm in NS 100ml 1 GM/100 ML BAG IVPB SCH (14:30)
[2017-02-16] MEDS ORDERED: Darbepoetin Alfa 60 mcg/ml Inj SC ONE (15:55)
[2017-02-16] MEDS: Nystatin 100,000 Units/gm Topical Pow(15 gm) TOP PRN (17:08)
[2017-02-16 17:18] LABS: IRON 70 ug/dL (45-180)
[2017-02-16 17:39] VITALS: RESP 20
--- NOTE | 2017-02-16 18:38 | CON ---
DATE: 02/16/2017 TIME: 04:26 p.m. CHIEF COMPLAINT AND HISTORY OF PRESENT ILLNESS: This is a 71-year-old gentleman who was admitted by Dr. Abbasi and Dr. Reyes for PVD with digital ulcerations and infection. The patient has noted the ulcerations for approximately 6 weeks. They are painful. He recently saw Dr. Emery Abbasi in the office. His most worrisome ulceration is on the left foot overlying the fourth toe. The wound is growing pseudomonas. The MRI is indeterminate for osteomyelitis. I reviewed the situation at length with Dr. Jim Reyes and Dr. Emery Abbasi. The patient's IMTIAZ/PVR exam reveals SFA and tibial disease. However, the distal waveforms are pulsatile. Options are limited by Mr. Tanner's chronic renal insufficiency. I spoke about the situation with Dr. Kim. His current creatinine is approximately 3.5. The risk of angiography and intervention is significant with that level of renal insufficiency. After discussion with Dr. Abbasi, we will initially attempt to manage the situation conservatively with wound care and antibiotics. If the wounds deteriorate, limited angiography and intervention may be necessary. Hopefully, he will improve with wound care alone. Emery Dia MD MTDD
--- NOTE | 2017-02-16 18:45 | PN ---
DATE: 02/16/2017 SUBJECTIVE: The patient is in bed, in no acute distress, nontoxic. PHYSICAL EXAMINATION: VITAL SIGNS: Temperature is 97, blood pressure is 130/60, respiratory rate of 18. HEENT: Unremarkable. NECK: Supple. LUNGS: Have decreased breath sounds. HEART: Normal S1, S2. ABDOMEN: Soft. LABORATORY EXAMINATION: Reveals a white count of 5.5, hemoglobin of 9, platelets of 100. Chemistries reveals are noted and BUN of 46, creatinine of 3.5. Urinalysis is noted. MEDICATIONS: Review of the medications reveals the patient is on meropenem. Review of the culture reveals to be Pseudomonas, but sensitive to cefepime. Reveals a creatinine of 3.5 with GFR of 17. ASSESSMENT AND PLAN: This is a 71-year-old male with Pseudomonas left foot osteomyelitis and cellulitis, severe peripheral vascular disease, chronic liver disease, atrial fibrillation, colonic polyps, chronic obstructive lung disease, hypertension, diabetes, renal disease. We will change to Maxipime 1 g q. 24 hours for 28 days. I recommend CBC, SMA-18, sedimentation rate, C-reactive protein once weekly. because of renal function is possible. We will follow closely with you. Vascular workup still in progress. Moustapha Frankel MD
--- NOTE | 2017-02-16 20:42 | CON ---
DATE: 02/16/2017 REASON FOR CONSULTATION: Safety of angiogram in the setting of chronic kidney disease stage IV. HISTORY OF PRESENT ILLNESS: A 71-year-old male, known to Dr. Dalton, from our group was admitted on 02/10/2017 because of nonhealing ulcer on the left fourth toe. The patient found to have osteomyelitis of the fourth phalanx, also found to have gangrene. The patient is receiving antibiotics. The patient had a lower extremity IMTIAZ exam, which showed calcified vessels; bilateral SFA disease, left greater than right; bilateral tibial disease. Would cultures growing Pseudomonas. The patient is on antibiotics. Reason for consultation is safety of IV contrast since angiogram has been considered. PAST MEDICAL AND SURGICAL HISTORY: NIDDM for 30 plus years; hypertension; peripheral arterial disease; atrial fibrillation status post cardiac ablation; chronic kidney disease stage IV; macular degeneration, status post surgery. FAMILY HISTORY: Hypertension and diabetes. SOCIAL HISTORY: Smoker, current smoker with 10 cigarettes a day. No alcohol. No IV drug abuse. ALLERGIES: NO KNOWN DRUG ALLERGIES. MEDICATIONS AT HOME: Tylenol, amlodipine 5 mg, aspirin, Lasix 40 mg daily, gabapentin, ceftaroline, insulin, lactulose, Synthroid, Toprol-XL 50, mupirocin, Protonix, rifaximin. REVIEW OF SYSTEMS: Currently, the patient denies any chest pain or palpitation. Denies any shortness of breath. Denies any abdominal pain, nausea, vomiting, diarrhea. He denies any constipation. He complaints of some right low back pain. He denies any urinary complaints. All other systems are reviewed and unremarkable. PHYSICAL EXAMINATION: GENERAL: An elderly male, sitting in chair, is at bedside. VITAL SIGNS: Blood pressure 130/62, heart rate 60, respiratory rate 18, temperature 97.4. HEENT: Normocephalic, atraumatic. Positive pallor. NECK: Supple. No JVD. LUNGS: Bilateral equal air entry, bilateral equal expansion, no rales. CARDIAC: S1 and S2. Regular rate and rhythm. No murmur. No rub. ABDOMEN: Obese, distended, soft, nontender. Bowel sounds present. EXTREMITIES: 1+ pitting edema of lower extremities. INTAKE AND OUTPUT: 1250/Not charted. LABORATORY DATA: WBC 5.5, hemoglobin 9.8, hematocrit 27, and platelets 100. Sodium 141, potassium 4.12, chloride 111, CO2 of 21, BUN 46, creatinine 2.5, glucose 102, and calcium 8.7. Urinalysis from the 02/10/2017, yellow clear, pH 6.0, specific gravity 1020, protein 30, blood trace intact. RBC is 123, WBC is 123. Stool occult positive on 02/14/2017. Wound culture from 02/11/2017 shows Pseudomonas. Urine culture, no growth. Blood culture, no growth. A CT of the abdomen and pelvis done on 02/10/2017 cirrhosis with moderate ascites, mural thickening throughout, the colon consistent with colitis. Kidneys and ureter 5 mm stone in the lower pole of the left kidney. ASSESSMENT AND PLAN: A 71-year-old male with history of [id number] diabetes mellitus, hypertension, peripheral arterial disease, atrial fibrillation status post ablation, chronic kidney disease stage IV, anemia of chronic kidney disease, suspect secondary hyperparathyroidism, is admitted with non-healing ulcer of the left fourth toe. Possible osteomyelitis. At this time, the patient is receiving antibiotics. Renal function appears to be stable. Creatinine is in the baseline range. We will discuss with Dr. Emery Dia regarding possibility of angiogram and angioplasty to increase/improve circulation. Discussed with the patient and at bedside at length, risk of worsening renal function with dye exposure. Discussed with the patient and measures that could be taking to minimize risk of dye induced injury. 1. Chronic kidney disease, stage IV, stable. 2. Zkr-sikssza-mytmvylzv diabetes mellitus. 3. Hypertension. 4. Peripheral vascular disease. 5. Nonhealing ulcer of the left foot, fourth toe, possible osteomyelitis. 6. Anemia of chronic kidney disease, stool occult positive?. 7. Suspect secondary hyperparathyroidism. PLAN: 1. Repeat stool occult. 2. Check iron studies. 3. Check ferritin. 4. Check phosphorous and intact PTH. 5. We will discuss with Dr. Emery Dia. 6. We will make recommendations once spoken to other doctors. Selina Garcia MD
[2017-02-16] MEDS: Insulin Detemir 100 units/ml Vial (Levemir) SC SCH (22:20)
[2017-02-17 04:06] VITALS: TEMP 98.5
[2017-02-17] MEDS: Levothyroxine 88 MCG TAB PO SCH (05:15)
[2017-02-17] MEDS: Pantoprazole 40 mg EC Tab PO SCH (05:15)
--- NOTE | 2017-02-17 07:16 | CP.PCM.PN ---
Subjective - Date & Time of Evaluation Date of Evaluation: 02/17/17 Time of Evaluation: 06:30 - Subjective Subjective: Podiatry Progress Note - Dr. Abbasi 71 year old male patient seen and evaluated at bedside with attending, Dr. Abbasi , for bilateral foot ulcerations. Patient hemodynamically stable and NAD. Patient is accompanied by at bedside. Denies any acute events overnight. Occasional mild pain, well-controlled. No pedal complaints today. Denies N/V/F/D /C/SOB. Objective - Vital Signs/Intake and Output Vital Signs (last 24 hours): Temp Pulse Resp BP Pulse Ox 98.5 F 62 20 115/56 L 97 02/17/17 00:00 02/17/17 00:00 02/17/17 00:00 02/17/17 00:00 02/17/17 00:00 Intake and Output: 02/17/17 02/17/17 06:59 18:59 Intake Total 720 Balance 720 - Medications Medications: Current Medications Acetaminophen (Tylenol 325mg Tab) 650 mg PO Q4H PRN PRN Reason: Pain, moderate (4-7) Last Admin: 02/16/17 20:01 Dose: 650 mg Amlodipine Besylate (Norvasc) 5 mg PO BID [facility] Last Admin: 02/16/17 17:09 Dose: 5 mg Aspirin (Ecotrin) 81 mg PO DAILY [facility] Last Admin: 02/16/17 09:44 Dose: 81 mg Collagenase (Santyl) 0 gm TOP DAILY [facility] Last Admin: 02/16/17 09:44 Dose: Not Given Furosemide (Lasix) 40 mg PO DAILY [facility] Last Admin: 02/16/17 09:48 Dose: 40 mg Gabapentin (Neurontin) 300 mg PO BID [facility] PRN Reason: Protocol Last Admin: 02/16/17 17:09 Dose: 300 mg Cefepime HCl (Maxipime 1gm) 1 gm in 100 mls @ 100 mls/hr IVPB Q24H [facility] PRN Reason: Protocol Stop: 03/16/17 14:31 Last Admin: 02/16/17 15:41 Dose: 100 mls/hr Insulin Detemir (Levemir) 14 unit SC HS [facility] Last Admin: 02/16/17 22:20 Dose: 14 unit Insulin Human Regular (Humulin R High) 0 units SC ACHS [facility] PRN Reason: Protocol Last Admin: 02/16/17 22:20 Dose: 2 units Lactobacillus Acidophilus (Bacid Acidophilus) 1 cap PO BID [facility] Last Admin: 02/16/17 17:09 Dose: 1 cap Levothyroxine Sodium (Synthroid) 88 mcg PO 0600 [facility] Last Admin: 02/17/17 05:15 Dose: 88 mcg Metoprolol Succinate (Toprol Xl) 50 mg PO BRK [facility] Last Admin: 02/16/17 08:56 Dose: Not Given Mupirocin (Bactroban Ointment) 0 gm TOP BID [facility] Last Admin: 02/16/17 17:10 Dose: Not Given Nystatin (Nystop Topical Powder) 1 gm TOP BID PRN PRN Reason: Other Last Admin: 02/16/17 17:08 Dose: 1 gm Pantoprazole Sodium (Protonix Ec Tab) 40 mg PO 0600 [facility] Last Admin: 02/17/17 05:15 Dose: 40 mg Rifaximin (Xifaxan) 550 mg PO DAILY [facility] PRN Reason: Protocol Last Admin: 02/16/17 09:43 Dose: 550 mg - Labs Labs: 02/15/17 06:15 02/15/17 06:15 PT 13.1 SECONDS (9.4-12.5) H 02/10/17 14:25 INR 1.20 (0.93-1.08) H 02/10/17 14:25 APTT 33.5 Seconds (25.1-36.5) 02/10/17 14:25 - Constitutional Appears: Well, Non-toxic, No Acute Distress - Extremities Exam Additional comments: Dressings to bilateral LE appear clean/dry/intact with no strikethrough noted. Bilateral surgical shoes present. VASC: DP and PT pulses palpable 2/4. CFT <3 seconds to all digits. Temperature gradient warm to warm b/l. No increase in warmth noted to left 4th digit. Nonpitting edema noted to left 4th digit. NEURO: Gross sensation diminished bilaterally. DERM: Erythema noted to left 4th digit. Left 4th digit with ulceration #1 noted to lateral aspect measuring approximately 1.3 x 1.3 x 0.2 cm - ulcer noted to have a mixed granular/fibrous/necrotic base with fibrin/slough - necrotic sloughing appears to be decreased at this visit with increase in granulation, macerated rim and serous drainage; no probe to bone/purulence/tunneling/ undermining noted. Left foot dorsolateral 5th digit healed ulceration #2 measuring approximately 0.2 x 0.2 x 0.1 cm with eschar cap and hyperkeratotic rim; no clinical signs of infection noted at this time. Right foot 4th digit ulceration #3 noted to lateral asepct measuring approximately 0.3 x 0.3 x 0.1 cm - ulcer noted to have a mixed fibrogranular base; no drainage/purulence/ probe to bone/tunneling/undermining/erythema noted; no clinical signs of infection noted at this time. Hyperkeratotic lesion noted to dorsolateral right 5th digit. ORTHO: Mild tenderness upon ROM of left 4th digit and upon palpation of ulceration. - Neurological Exam Neurological Exam: Alert, Awake, Oriented x3 - Psychiatric Exam Psychiatric exam: Normal Affect, Normal Mood Assessment and Plan - Assessment and Plan (Free Text) Assessment: 71 year old male patient with bilateral foot ulcerations 2/2 diabetic neuropathy Plan: Patient seen and evaluated at bedside with attending, Dr. Abbasi Afebrile f/u today CBC Left foot XR reviewed - WNL Right foot XR reviewed - WNL Left foot MRI reviewed -Minimal marrow edema in proximal and middle 4th phalanx. Significance uncertain. This could represent early OM Arterial duplex bilateral LE reviewed -Limited study due to calcified vessels. -Bilateral SFA disease, L>R -Bilateral tibial disease -Per vascular risk of angiography and intervention is significant due to renal insufficiency, Cr = 3.5 Wound culture taken of left 4th digit reveals growth of pseudomonas; patient currently on Cefepime -Per ID, abx changed from meropenem to cefepime. Patient will continue with this treatment 1g q24h x28 days Discussed with patient and family at length that MRI is suspicious for OM proximal and middle phalanx left 4th digit, and informed patient of penitentiary abx vs. amputation with postoperative course. Patient and family demonstrate verbal understanding. Patient elects to manage via conservative care - penitentiary abx and local wound care. -Santyl applied to bilateral 4th digit wound and dressed with DSD Patient WBAT in surgical shoe Podiatry will continue to follow patient while in house
[2017-02-17 07:25] VITALS: O2SAT 99
[2017-02-17] MEDS: Insulin Reg-HIGH-Coverage SC SCH ×2 (07:55→11:33)
[2017-02-17] MEDS: Metoprolol Succinate 50 mg XL Tab PO SCH (08:15)
[2017-02-17 08:43] LABS: ALB/GLOB RATIO 0.9 (1.1-1.8); BILIRUBIN,TOTAL 1.9 mg/dL (0.2-1.3); CALCIUM 9.4 mg/dL (8.4-10.5); POTASSIUM 5.1 mmol/L (3.6-5.0); TOTAL PROTEIN 7.7 g/dL (5.8-8.3)
[2017-02-17] MEDS ORDERED: Sod Polystyrene Sulf 15 gm/60 ml Susp PO ONE (09:23)
[2017-02-17] MEDS: Lactobacillus Acidophilus 500 MU Cap PO SCH (09:54)
[2017-02-17] MEDS: Nystatin 100,000 Units/gm Topical Pow(15 gm) TOP PRN (09:55)
[2017-02-17] MEDS: Collagenase 250 Units/gm Ointment(30 gm) TOP SCH (09:55)
[2017-02-17 10:01] VITALS: BP 118/64; PULSE 60
[2017-02-17 10:22] LABS: HEMATOCRIT 29.2 % (42.0-52.0); MEAN CORPUSCULAR HEMOGLOBIN 33.4 pg (25.0-35.0); MEAN PLATELET VOLUME 11.7 fl (7.0-11.0); RED CELL DISTRIBUTION WIDTH 15.5 % (11.5-14.5); WHITE BLOOD COUNT 6.5 10^3/ul (4.5-11.0)
--- NOTE | 2017-02-17 13:31 | PN ---
DATE: 02/17/2017 SUBJECTIVE: The patient is seen sitting in bed. He is eating breakfast. He denies any pain. Denies any shortness of breath. He denies any chest tightness at present. PHYSICAL EXAMINATION: GENERAL: Elderly male sitting in bed. VITAL SIGNS: Blood pressure 118/64, heart rate 60, respiratory rate 20, temperature 98.5. HEENT: Normocephalic, atraumatic. NECK: Supple, no JVD. LUNGS: Bilateral equal entry, bilateral equal expansion. CARDIAC: S1, S2,. regular rate and rhythm, no murmur, no rub. ABDOMEN: Obese, distended, soft, nontender, bowel sounds present. EXTREMITIES: Dressing of the left foot. INTAKE AND OUTPUT: 1920/not charted. LABORATORY DATA: WBC 6.5, hemoglobin 10.5, hematocrit 29, platelets 113. Sodium 142, potassium 5.1, chloride 106, CO2 25, BUN 50, creatinine 3.7, glucose 130, calcium 9.4, total bili 1.9, AST 75, ALT 40, albumin 3.7. Foot culture Pseudomonas. CURRENT MEDICATIONS: Acidophilus, Bactroban, Ecotrin, insulin, Lasix 40 p.o. daily, Levemir, Maxipime, Neurontin, amlodipine 5, nystatin, Protonix, collagenase, Synthroid, Toprol-XL, Tylenol. ASSESSMENT AND PLAN: 1. Nonhealing ulcer of the left fourth digit. 2. Possible osteomyelitis. 3. Peripheral vascular disease. 4. Stable chronic kidney disease stage IV. 5. Non-insulin dependent diabetes mellitus. 6. Hypertension. 7. Resolved hyperkalemia. PLAN: 1. Discussed with Dr. Emery Dia. Reviewed MRI again. MRI is indeterminate for osteomyelitis. At this time, the risk of angiogram and contrast-induced injury is much higher than likely benefit. Therefore at this time, the patient will be treated with antibiotics for his Pseudomonas wound infection. 2. Avoid use of Kayexalate. 3.. New antibiotics as per ID recommendations. 4. Monitor fingersticks. 5. Avoid nephrotoxins. 6. Close outpatient followup. Selina Garcia MD [facility] # [id number]
--- NOTE | 2017-02-17 13:35 | CP.PCM.PN ---
<Darline Hannah - Last Filed: 02/17/17 13:33> Subjective - Date & Time of Evaluation Date of Evaluation: 02/17/17 Time of Evaluation: 10:10 - Subjective Subjective: S&E at bedside , no acute overnight events, No diarrhea , no bleeding. No new complaints. Tolerating oral intake. Ammonia level 22.8. Objective - Vital Signs/Intake and Output Vital Signs (last 24 hours): Temp Pulse Resp BP Pulse Ox 98.5 F 60 20 118/64 99 02/17/17 07:24 02/17/17 09:57 02/17/17 07:24 02/17/17 09:57 02/17/17 07:24 Intake and Output: 02/17/17 02/17/17 06:59 18:59 Intake Total 720 Balance 720 - Medications Medications: Current Medications Acetaminophen (Tylenol 325mg Tab) 650 mg PO Q4H PRN PRN Reason: Pain, moderate (4-7) Last Admin: 02/16/17 20:01 Dose: 650 mg Amlodipine Besylate (Norvasc) 5 mg PO BID [facility] Last Admin: 02/17/17 09:57 Dose: 5 mg Aspirin (Ecotrin) 81 mg PO DAILY [facility] Last Admin: 02/17/17 09:54 Dose: 81 mg Collagenase (Santyl) 0 gm TOP DAILY [facility] Last Admin: 02/17/17 09:55 Dose: Not Given Furosemide (Lasix) 40 mg PO DAILY [facility] Last Admin: 02/17/17 09:57 Dose: 40 mg Gabapentin (Neurontin) 300 mg PO BID [facility] PRN Reason: Protocol Last Admin: 02/17/17 09:54 Dose: 300 mg Cefepime HCl (Maxipime 1gm) 1 gm in 100 mls @ 100 mls/hr IVPB Q24H [facility] PRN Reason: Protocol Stop: 03/16/17 14:31 Last Admin: 02/16/17 15:41 Dose: 100 mls/hr Insulin Detemir (Levemir) 14 unit SC HS [facility] Last Admin: 02/16/17 22:20 Dose: 14 unit Insulin Human Regular (Humulin R High) 0 units SC ACHS [facility] PRN Reason: Protocol Last Admin: 02/17/17 11:33 Dose: Not Given Lactobacillus Acidophilus (Bacid Acidophilus) 1 cap PO BID [facility] Last Admin: 02/17/17 09:54 Dose: 1 cap Levothyroxine Sodium (Synthroid) 88 mcg PO 0600 [facility] Last Admin: 02/17/17 05:15 Dose: 88 mcg Metoprolol Succinate (Toprol Xl) 50 mg PO BRK [facility] Last Admin: 02/17/17 08:15 Dose: 50 mg Mupirocin (Bactroban Ointment) 0 gm TOP BID [facility] Last Admin: 02/17/17 09:55 Dose: Not Given Nystatin (Nystop Topical Powder) 1 gm TOP BID PRN PRN Reason: Other Last Admin: 02/17/17 09:55 Dose: 1 gm Pantoprazole Sodium (Protonix Ec Tab) 40 mg PO 0600 [facility] Last Admin: 02/17/17 05:15 Dose: 40 mg - Labs Labs: 02/17/17 10:10 02/17/17 06:30 PT 13.1 SECONDS (9.4-12.5) H 02/10/17 14:25 INR 1.20 (0.93-1.08) H 02/10/17 14:25 APTT 33.5 Seconds (25.1-36.5) 02/10/17 14:25 - Constitutional Appears: No Acute Distress - Head Exam Head Exam: NORMOCEPHALIC - Eye Exam Eye Exam: Scleral icterus. absent: Normal appearance - ENT Exam ENT Exam: Mucous Membranes Moist - Neck Exam Neck Exam: Normal Inspection - Respiratory Exam Respiratory Exam: NORMAL BREATHING PATTERN. absent: Respiratory Distress - Cardiovascular Exam Cardiovascular Exam: +S1, +S2 - GI/Abdominal Exam GI & Abdominal Exam: Soft, Normal Bowel Sounds. absent: Guarding, Tenderness, Rebound - Extremities Exam Extremities Exam: absent: Calf Tenderness - Neurological Exam Neurological Exam: Alert, Awake, Oriented x3 - Skin Skin Exam: Dry, Warm Assessment and Plan - Assessment and Plan (Free Text) Assessment: ASSESSMENT: Hepatic Cirrhosis H/O Hepatic encephelopathy H/O Excessive alcohol in the past Abdominal Ascites Lower extremity cellulitis, s/p MRI ? early osteomyelitis, Left foot C&S (+) Pseudomonas Aerongenosa PAD DM PLAN: on IV antibiotics as per ID diet as tolerated continue PPI on Xiafaxin, ammonia level ok monitor LFT as per ID/Podiatry Patient with family opt for conservative mgt of left foot early osteomyelitis per MRI, antibiotics and podiatry FU. Plan for TCU Seen and examined w/ Dr. Mejia. <Delbert Mejia V - Last Filed: 02/18/17 01:37> Objective - Vital Signs/Intake and Output Vital Signs (last 24 hours): Temp Pulse Resp BP Pulse Ox 98.5 F 60 20 118/64 99 02/17/17 07:24 02/17/17 09:57 02/17/17 07:24 02/17/17 09:57 02/17/17 07:24 Intake and Output: 02/17/17 02/18/17 18:59 06:59 Intake Total 720 Balance 720 - Labs Labs: 02/17/17 10:10 02/17/17 06:30 PT 13.1 SECONDS (9.4-12.5) H 02/10/17 14:25 INR 1.20 (0.93-1.08) H 02/10/17 14:25 APTT 33.5 Seconds (25.1-36.5) 02/10/17 14:25 Attending/Attestation - Attestation I have personally seen and examined this patient.: Yes I have fully participated in the care of the patient.: Yes I have reviewed all pertinent clinical information, including history, physical exam and plan: Yes Notes (Text): This is an addendum to GI progress report dictated by Darline Hannah APN.The patient was seen and examined earlier. Medical records, lab studies, imagings were reviewed. Last 24 hours events reviewed. Agreed with the above treatment plan as outlined in Darline Hannah APN's notes the with the addition of the following on examination abdomen appears slightly less distended tenderness Patient is more alert Only on Xifaxan note on lactulose Continue xifaxan 02/18/17 01:36
--- NOTE | 2017-02-17 20:07 | PN ---
DATE: 02/17/2017 SUBJECTIVE: The patient is seen in bed, in no acute distress, and nontoxic. PHYSICAL EXAMINATION: VITAL SIGNS: Temperature is 98, blood pressure is 118/60, respiratory rate of 20, and heart rate of 61. HEENT: Unremarkable. NECK: Supple. LUNGS: Have decreased breath sounds. HEART: Normal S1 and S2. ABDOMEN: Soft and nontender. LABORATORY DATA: Reveals a white count of 6.5 and hemoglobin of 10. BUN of 50 and creatinine is 3.7. Microbiology reveals left foot with Pseudomonas. ASSESSMENT AND PLAN: A 71-year-old male with Pseudomonas with left foot osteomyelitis and cellulitis with severe peripheral vascular disease, chronic liver disease, atrial fibrillation, colonic polyps, chronic obstructive lung disease, hypertension, diabetes, and renal disease, currently on Maxipime 1 gm IV q.24 hours for 28 days. Recommend CBC, SMA-18, sed rate, and C-reactive protein once weekly, did have a prolonged QTc interval, poor quality, and Pseudomonas is sensitive to Cipro, we would not recommend to introduce the quinolone. Case discussed with the patient's in detail and we will follow. Moustapha Frankel MD
--- NOTE | 2017-02-18 09:29 | DS ---
HISTORY AND HOSPITAL COURSE: This is a 71-year-old man known to my office with diabetes and renal insufficiency, who presented to the Acute Care Facility at [facility] with cellulitis to lower extremity, having failed outpatient treatment with Augmentin. He was sen to the ER by his porcelain slusher concerned about nonhealing ulcer and worsening erythema in the left foot. On physical exam, there was a ulceration between the toe with erythema, so the patient was admitted and started on IV antibiotics. He was followed by Podiatry, Dr. Abbasi, and Infectious Diseases lean process deployment consultant Dr. Frankel, and Interventional Radiology, Dr. Emery Dia. He was treated with antibiotics, the erythema is improved and MRI raised a question suspicious of osteomyelitis of the fourth digit. Several options were discussed with the patient and consultants, amputation of the fourth toe versus antibiotics. The patient was perhaps leaning in the direction of the amputation as a definitive treatment and shortening the course of antibiotics and hospitalization, but then concern was raised by vascular regarding wound healing and so he opted for conservative approach, however, prolonged course of antibiotics knowing the patient with those be an option in the future. I explained him this might cause problems also with shoe fitting, etc., as there has already been an issue that the patient related to me, but we will proceed on this course. So, the patient was discharged today, , 02/17/2017 to the Transitional Care Unit for additional course of antibiotics. FINAL DISCHARGE DIAGNOSES: 1. Diabetic foot. 2. Cellulitis of the left lower extremity. 3. Diabetes. 4. Chronic renal insufficiency. Berto Reyes MD
== END 2017-02-17 14:25 | DRG 300 ==
LOC: ED 13:28 → ERH 16:48 → 5RNO 19:02
PROVIDERS: ADMIT Internal Medicine; ATTEND Internal Medicine
DX: E11.52 Type 2 diabetes mellitus with diabetic peripheral angiopathy with gangrene (principal); L03.116 Cellulitis of left lower limb; E11.628 Type 2 diabetes mellitus with other skin complications; E11.69 Type 2 diabetes mellitus with other specified complication; M86.8X7 Other osteomyelitis, ankle and foot; N18.4 Chronic kidney disease, stage 4 (severe); R18.8 Other ascites; I13.0 Hypertensive heart and chronic kidney disease with heart failure and stage 1 through stage 4 chronic kidney disease, or unspecified chronic kidney disease; E11.22 Type 2 diabetes mellitus with diabetic chronic kidney disease; N25.81 Secondary hyperparathyroidism of renal origin; E11.621 Type 2 diabetes mellitus with foot ulcer; L97.519 Non-pressure chronic ulcer of other part of right foot with unspecified severity; L97.529 Non-pressure chronic ulcer of other part of left foot with unspecified severity; E11.40 Type 2 diabetes mellitus with diabetic neuropathy, unspecified; E66.01 Morbid (severe) obesity due to excess calories; B96.5 Pseudomonas (aeruginosa) (mallei) (pseudomallei) as the cause of diseases classified elsewhere; I50.9 Heart failure, unspecified; K74.60 Unspecified cirrhosis of liver; I48.91 Unspecified atrial fibrillation; J44.9 Chronic obstructive pulmonary disease, unspecified; E03.9 Hypothyroidism, unspecified; F17.210 Nicotine dependence, cigarettes, uncomplicated; H35.30 Unspecified macular degeneration; Z77.090 Contact with and (suspected) exposure to asbestos; D63.1 Anemia in chronic kidney disease; E87.5 Hyperkalemia; R19.7 Diarrhea, unspecified; Z68.31 Body mass index [BMI] 31.0-31.9, adult; Z86.010 Personal history of colon polyps; Z79.4 Long term (current) use of insulin

== ENCOUNTER 2017-02-17 14:34 | Inpatient (IN) | payer OTHER ==
[2017-02-17] MEDS ORDERED: Nystatin 100,000 Units/gm Cream(15 gm) TOP PRN (14:39)
[2017-02-17] MEDS: Cefepime 1gm in NS 100ml 1 GM/100 ML BAG IVPB SCH (15:27)
[2017-02-17 16:22] VITALS: BMI 32.0
[2017-02-17] MEDS ORDERED: Pneumococcal 23-Valent Vaccine IM ONE (16:22)
[2017-02-17] MEDS ORDERED: Influenza Vaccine 60 mcg/0.5 mL SYR (4YR UP) IM ONE (16:22)
[2017-02-17] MEDS: Insulin Reg-HIGH-Coverage SC SCH ×2 (17:28→22:20)
[2017-02-17] MEDS: Lactobacillus Acidophilus 500 MU Cap PO SCH (17:35)
[2017-02-17] MEDS: Insulin Detemir 100 units/ml Vial (Levemir) SC SCH (21:44)
[2017-02-18] MEDS ORDERED: Cefepime 1gm in NS 100ml 1 GM/100 ML BAG IVPB SCH (06:00)
[2017-02-18] MEDS: Levothyroxine 88 MCG TAB PO SCH (06:02)
[2017-02-18] MEDS: Pantoprazole 40 mg EC Tab PO SCH (06:02)
[2017-02-18] MEDS: Insulin Reg-HIGH-Coverage SC SCH ×4 (06:52→21:54)
[2017-02-18 07:12] LABS: BASO # 0.05 K/mm3 (0.0-2.0); BASO % 0.8 % (0.0-3.0); EOS # 0.2 (0.0-0.7); EOS % 2.6 % (1.5-5.0); GRAN # 4.15 (1.4-6.5); GRAN % 66.6 % (50.0-68.0); HEMATOCRIT 28.2 % (42.0-52.0); LYMPH # 1.1 (1.2-3.4); LYMPH % 17.5 % (22.0-35.0); MEAN CELL VOLUME 93.4 fl (80.0-105.0); MEAN CORPUSCULAR HEMOGLOBIN 33.8 pg (25.0-35.0); MEAN CORPUSCULAR HGB CONC 36.2 g/dl (31.0-37.0); MEAN PLATELET VOLUME 12.5 fl (7.0-11.0); MONO # 0.8 (0.1-0.6); MONO % 12.5 % (1.0-6.0); RED CELL DISTRIBUTION WIDTH 15.3 % (11.5-14.5); WHITE BLOOD COUNT 6.2 10^3/ul (4.5-11.0)
[2017-02-18 07:46] LABS: POTASSIUM 4.4 mmol/L (3.6-5.0)
[2017-02-18] MEDS: Lactobacillus Acidophilus 500 MU Cap PO SCH ×2 (12:22→18:57)
[2017-02-18] MEDS: Metoprolol Succinate 50 mg XL Tab PO SCH (12:23)
[2017-02-18] MEDS: Collagenase 250 Units/gm Ointment(30 gm) TOP SCH (12:57)
--- NOTE | 2017-02-18 13:46 | CP.PCM.PN ---
Subjective - Date & Time of Evaluation Date of Evaluation: 02/18/17 Time of Evaluation: 10:25 - Subjective Subjective: S&E at bedside, chart reviewed, no acute overnight events, had soft BM, no bleeding. No abdominal pain, N/V. Tolerating oral intake. Objective - Vital Signs/Intake and Output Vital Signs (last 24 hours): Temp Pulse Resp BP Pulse Ox 98.8 F 70 14 142/52 L 99 02/18/17 11:18 02/18/17 11:18 02/18/17 11:18 02/18/17 12:22 02/18/17 11:18 Intake and Output: 02/18/17 02/18/17 06:59 18:59 Intake Total 360 Balance 360 - Medications Medications: Current Medications Acetaminophen (Tylenol 325mg Tab) 650 mg PO Q4H PRN; Protocol PRN Reason: Pain, moderate (4-7) Amlodipine Besylate (Norvasc) 5 mg PO BID [facility] PRN Reason: Protocol Last Admin: 02/18/17 12:56 Dose: 5 mg Aspirin (Ecotrin) 81 mg PO 0800 [facility] PRN Reason: Protocol Last Admin: 02/18/17 12:22 Dose: 81 mg Collagenase (Santyl) 0 gm TOP DAILY [facility] PRN Reason: Protocol Last Admin: 02/18/17 12:57 Dose: 1 appful Furosemide (Lasix) 40 mg PO DAILY [facility] PRN Reason: Protocol Last Admin: 02/18/17 12:22 Dose: 40 mg Gabapentin (Neurontin) 300 mg PO BID [facility] PRN Reason: Protocol Last Admin: 02/18/17 12:22 Dose: 300 mg Cefepime HCl (Maxipime 1gm) 1 gm in 100 mls @ 100 mls/hr IVPB Q24H [facility] PRN Reason: Protocol Last Admin: 02/17/17 15:27 Dose: 100 mls/hr Insulin Detemir (Levemir) 14 unit SC HS [facility] PRN Reason: Protocol Last Admin: 02/17/17 21:44 Dose: 14 unit Insulin Human Regular (Humulin R High) 0 units SC ACHS [facility] PRN Reason: Protocol Last Admin: 02/18/17 13:25 Dose: Not Given Lactobacillus Acidophilus (Bacid Acidophilus) 1 cap PO BID [facility] PRN Reason: Protocol Last Admin: 02/18/17 12:22 Dose: 1 cap Levothyroxine Sodium (Synthroid) 88 mcg PO 0600 [facility] PRN Reason: Protocol Last Admin: 02/18/17 06:02 Dose: 88 mcg Metoprolol Succinate (Toprol Xl) 50 mg PO BRK [facility] PRN Reason: Protocol Last Admin: 02/18/17 12:23 Dose: 50 mg Mupirocin (Bactroban Ointment) 0 gm TOP BID [facility] PRN Reason: Protocol Last Admin: 02/18/17 12:56 Dose: 1 apful Nystatin (Mycostatin Cream) 0 ea TOP BID PRN; Protocol PRN Reason: Other Pantoprazole Sodium (Protonix Ec Tab) 40 mg PO 0600 [facility] PRN Reason: Protocol Last Admin: 02/18/17 06:02 Dose: 40 mg - Labs Labs: 02/18/17 06:40 02/18/17 06:40 - Constitutional Appears: No Acute Distress - Head Exam Head Exam: NORMOCEPHALIC - Eye Exam Eye Exam: Normal appearance. absent: Scleral icterus - ENT Exam ENT Exam: Mucous Membranes Moist - Respiratory Exam Respiratory Exam: NORMAL BREATHING PATTERN. absent: Respiratory Distress - Cardiovascular Exam Cardiovascular Exam: +S1, +S2 - GI/Abdominal Exam GI & Abdominal Exam: Distended, Soft, Normal Bowel Sounds. absent: Guarding, Tenderness, Rebound - Extremities Exam Extremities Exam: absent: Calf Tenderness - Neurological Exam Neurological Exam: Alert, Awake, Oriented x3 - Skin Skin Exam: Dry, Warm Assessment and Plan - Assessment and Plan (Free Text) Assessment: ASSESSMENT: Hepatic Cirrhosis H/O Hepatic encephelopathy H/O Excessive alcohol in the past Abdominal Ascites Lower extremity cellulitis, s/p MRI ? early osteomyelitis, Left foot C&S (+) Pseudomonas Aerongenosa PAD DM PLAN: on IV antibiotics as per ID diet as tolerated continue PPI continue Xiafaxin, monitor ammonia , last level 127: 22 monitor LFT as per ID/Podiatry Patient with family opt for conservative mgt w/ antibiotics and podiatry FU. Seen and examined w/ Dr. Mejia.
--- NOTE | 2017-02-18 14:30 | CP.PCM.CON ---
History of Present Illness - History of Present Illness History of Present Illness: Podiatry Consult Note - Dr. Abbasi 71 year old male patient seen and evaluated in TCU for bilateral foot ulcerations. Patient hemodynamically stable and NAD. Patient is accompanied by daughter at bedside. Denies any acute events overnight. No new complaints to bilateral lower extremity. Patient states he has been working with physical therapy and has been ambulating with surgical shoes in place, no issues. Denies N/V/F/D/C/SOB/calf pain. Review of Systems - Review of Systems All systems: reviewed and no additional remarkable complaints except (as per HPI ) Past Patient History - Past Social History Smoking Status: Light Smoker < 10 Cigarettes Daily - CARDIAC Hx Cardiac Disorders: Yes Hx Congestive Heart Failure: Yes Hx Hypertension: Yes - PULMONARY Hx Respiratory Disorders: Yes (asbestosis) - NEUROLOGICAL Hx Neurological Disorder: Yes (neuropathy "all over" pt stated) - HEENT Hx Macular Degeneration: Yes - RENAL Hx Chronic Kidney Disease: No Hx Kidney Stones: Yes (several times) - ENDOCRINE/METABOLIC Hx Diabetes Mellitus Type 2: Yes Hx Hypothyroidism: Yes - HEMATOLOGICAL/ONCOLOGICAL Hx Blood Disorders: No - INTEGUMENTARY Hx Dermatological Problems: No Other/Comment: B/L leg erythema. Edema +1 B/L - MUSCULOSKELETAL/RHEUMATOLOGICAL Hx Falls: No - GASTROINTESTINAL Hx Gastrointestinal Disorders: (ascites) - GENITOURINARY/GYNECOLOGICAL Hx Reproductive Disorders: No - PSYCHIATRIC Hx Emotional Abuse: No Hx Physical Abuse: No Hx Substance Use: No - SURGICAL HISTORY Hx Cholecystectomy: Yes Other/Comment: hernia repair, b/l total knee replacement 1996, 2001, left pigtail stent, r elbow sx - ANESTHESIA Hx Anesthesia Reactions: No Hx Malignant Hyperthermia: No Meds Allergies/Adverse Reactions: Allergies Allergy/AdvReac Type Severity Reaction Status Date / Time No Known Allergies Allergy Verified 02/10/17 14:02 - Medications Medications: Current Medications Acetaminophen (Tylenol 325mg Tab) 650 mg PO Q4H PRN; Protocol PRN Reason: Pain, moderate (4-7) Amlodipine Besylate (Norvasc) 5 mg PO BID MOHINDER PRN Reason: Protocol Last Admin: 02/18/17 12:56 Dose: 5 mg Aspirin (Ecotrin) 81 mg PO 0800 MOHINDER PRN Reason: Protocol Last Admin: 02/18/17 12:22 Dose: 81 mg Collagenase (Santyl) 0 gm TOP DAILY MOHINDER PRN Reason: Protocol Last Admin: 02/18/17 12:57 Dose: 1 appful Furosemide (Lasix) 40 mg PO DAILY MOHINDER PRN Reason: Protocol Last Admin: 02/18/17 12:22 Dose: 40 mg Gabapentin (Neurontin) 300 mg PO BID MOHINDER PRN Reason: Protocol Last Admin: 02/18/17 12:22 Dose: 300 mg Cefepime HCl (Maxipime 1gm) 1 gm in 100 mls @ 100 mls/hr IVPB Q24H MOHINDER PRN Reason: Protocol Last Admin: 02/17/17 15:27 Dose: 100 mls/hr Insulin Detemir (Levemir) 14 unit SC HS MOHINDER PRN Reason: Protocol Last Admin: 02/17/17 21:44 Dose: 14 unit Insulin Human Regular (Humulin R High) 0 units SC ACHS MOHINDER PRN Reason: Protocol Last Admin: 02/18/17 13:25 Dose: Not Given Lactobacillus Acidophilus (Bacid Acidophilus) 1 cap PO BID MOHINDER PRN Reason: Protocol Last Admin: 02/18/17 12:22 Dose: 1 cap Levothyroxine Sodium (Synthroid) 88 mcg PO 0600 MOHINDER PRN Reason: Protocol Last Admin: 02/18/17 06:02 Dose: 88 mcg Metoprolol Succinate (Toprol Xl) 50 mg PO BRK MOHINDER PRN Reason: Protocol Last Admin: 02/18/17 12:23 Dose: 50 mg Mupirocin (Bactroban Ointment) 0 gm TOP BID MOHINDER PRN Reason: Protocol Last Admin: 02/18/17 12:56 Dose: 1 apful Nystatin (Mycostatin Cream) 0 ea TOP BID PRN; Protocol PRN Reason: Other Pantoprazole Sodium (Protonix Ec Tab) 40 mg PO 0600 MOHINDER PRN Reason: Protocol Last Admin: 02/18/17 06:02 Dose: 40 mg Physical Exam - Constitutional Appears: Well, Non-toxic, No Acute Distress - Extremities Exam Additional comments: Dressings to bilateral LE appear clean/dry/intact with no strikethrough noted. Bilateral surgical shoes present. VASC: DP and PT pulses palpable 2/4. CFT <3 seconds to all digits. Temperature gradient warm to warm b/l. No increase in warmth noted to left 4th digit. Nonpitting edema noted to left 4th digit with peeling skin, resolving. NEURO: Gross sensation diminished bilaterally. DERM: Erythema noted to left 4th digit, resolving. Left 4th digit with ulceration #1 noted to lateral aspect measuring approximately 1.3 x 1.3 x 0.2 cm - ulcer noted to have a mixed granular/fibrous/necrotic base with fibrin/ slough - necrotic sloughing continues to decrease with increase in granulation tissue, macerated rim and serous drainage; no probe to bone/purulence/tunneling/ undermining noted. Left foot dorsolateral 5th digit healed ulceration #2 measuring approximately 0.2 x 0.2 x 0.1 cm with eschar cap and hyperkeratotic rim; no clinical signs of infection noted at this time. Right foot 4th digit ulceration #3 noted to lateral asepct measuring approximately 0.3 x 0.3 x 0.1 cm - ulcer noted to have a mixed fibrogranular base; no drainage/purulence/ probe to bone/tunneling/undermining/erythema noted; no clinical signs of infection noted at this time. Hyperkeratotic lesion noted to dorsolateral right 5th digit. ORTHO: Mild tenderness upon ROM of left 4th digit and upon palpation of ulceration. - Neurological Exam Neurological exam: Alert, Oriented x3 - Psychiatric Exam Psychiatric exam: Normal Affect, Normal Mood Results - Vital Signs Recent Vital Signs: Last Vital Signs Temp 98.8 F 02/18/17 11:18 Pulse 70 02/18/17 11:18 Resp 14 02/18/17 11:18 BP 142/52 L 02/18/17 12:22 Pulse Ox 99 02/18/17 11:18 - Labs Result Diagrams: 02/18/17 06:40 02/18/17 06:40 Labs: Laboratory Results - last 24 hr 02/17/17 02/18/17 02/18/17 21:33 02:03 05:58 WBC RBC Hgb Hct MCV MCH MCHC RDW Plt Count MPV Gran % Lymph % (Auto) Rains % (Auto) Eos % (Auto) Baso % (Auto) Gran # Lymph # Rains # Eos # Baso # Sodium Potassium Chloride Carbon Dioxide Anion Gap BUN Creatinine Est GFR ( Amer) Est GFR (Non-Af Amer) POC Glucose (mg/dL) 341 H 330 H 236 H Random Glucose Calcium 02/18/17 02/18/17 06:40 06:40 WBC 6.2 RBC 3.02 L Hgb 10.2 L Hct 28.2 L MCV 93.4 MCH 33.8 MCHC 36.2 RDW 15.3 H Plt Count 113 L MPV 12.5 H Gran % 66.6 Lymph % (Auto) 17.5 L Rains % (Auto) 12.5 H Eos % (Auto) 2.6 Baso % (Auto) 0.8 Gran # 4.15 Lymph # 1.1 L Rains # 0.8 H Eos # 0.2 Baso # 0.05 Sodium 140 Potassium 4.4 Chloride 105 Carbon Dioxide 23 Anion Gap 16 BUN 52 H Creatinine 3.7 H Est GFR ( Amer) 20 Est GFR (Non-Af Amer) 16 POC Glucose (mg/dL) Random Glucose 219 H Calcium 9.0 Assessment & Plan - Assessment and Plan (Free Text) Assessment: 71 year old male patient with bilateral foot ulcerations and probable early OM left 4th digit 2/2 diabetic neuropathy Plan: Patient seen and evaluated at bedside Discussed with attending, Dr. Abbasi Afebrile, WBC 6.2 Left foot XR reviewed - WNL Right foot XR reviewed - WNL Left foot MRI reviewed -Minimal marrow edema in proximal and middle 4th phalanx. Significance uncertain. This could represent early OM Arterial duplex bilateral LE reviewed -Limited study due to calcified vessels. -Bilateral SFA disease, L>R -Bilateral tibial disease -Per vascular risk of angiography and intervention is significant due to renal insufficiency, Cr = 3.5 Wound culture taken of left 4th digit reveals growth of pseudomonas; patient currently on Cefepime -Per ID, abx changed from meropenem to cefepime. Patient will continue with this treatment 1g q24h x28 days Discussed with patient and family at length that MRI is suspicious for OM proximal and middle phalanx left 4th digit, and informed patient of intermediate accountant abx vs. amputation with postoperative course. Patient and family demonstrate verbal understanding. Patient elects to manage via conservative care - intermediate accountant abx and local wound care. -Santyl applied to bilateral 4th digit wounds and dressed with DSD Patient WBAT in surgical shoe b/l Podiatry will continue to follow patient while in house
--- NOTE | 2017-02-18 14:41 | RAD ---
HISTORY: CONFIRMATION OF PICC LINE PLACEMENT COMPARISON: 02/10/2017 FINDINGS: LUNGS: No active pulmonary disease. 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 CARDIOVASCULAR: No radiographic findings to suggest acute or significant cardiovascular disease. OSSEOUS STRUCTURES: No significant abnormalities. VISUALIZED UPPER ABDOMEN: Normal. OTHER FINDINGS: None. IMPRESSION: No active disease. No significant interval change compared to the prior examination(s).
--- NOTE | 2017-02-18 14:53 | RAD ---
HISTORY: Confirm PICC repositioning COMPARISON: February 16, 2017. 14:00 FINDINGS: LUNGS: No active pulmonary disease. PLEURA: No significant pleural effusion identified, no pneumothorax apparent. CARDIOVASCULAR: No radiographic findings to suggest acute or significant cardiovascular disease. PICC line in satisfactory position OSSEOUS STRUCTURES: No significant abnormalities. VISUALIZED UPPER ABDOMEN: Normal. OTHER FINDINGS: None. IMPRESSION: Satisfactory position of PICC line following repositioning.
--- NOTE | 2017-02-18 16:00 | CP.PCM.CON ---
History of Present Illness - History of Present Illness History of Present Illness: 71 year old male with PMH of obesity with BMI 32, chronic liver disease, history of colonic polyps, atrial fibrillation, COPD, HTN, chronic renal failure , DM, peripheral vascular disease, asbestosis was initially admitted in [facility] [place], [place] for left foot cellulitis and was found to have osteomyelitis. He underwent debridement and was found to have Pseudomonas in the foot. MRI was done which also showed probable early osteomyelitis of the 4th digit. He is now transferred to [facility] for continued medical therapy and physical rehab. Infectious Diseases consult is requested to further evaluate and manage. Currently he is afebrile, no headache or dizziness, no chest pain, no SOB, no nausea or vomiting, no diarrhea, no abdominal pain, no dysuria, less pain in the left foot. Review of Systems - Review of Systems All systems: reviewed and no additional remarkable complaints except (as per HPI ) Past Patient History - Past Social History Smoking Status: Light Smoker < 10 Cigarettes Daily - CARDIAC Hx Cardiac Disorders: Yes Hx Congestive Heart Failure: Yes Hx Hypertension: Yes - PULMONARY Hx Respiratory Disorders: Yes (asbestosis) - NEUROLOGICAL Hx Neurological Disorder: Yes (neuropathy "all over" pt stated) - HEENT Hx Macular Degeneration: Yes - RENAL Hx Chronic Kidney Disease: No Hx Kidney Stones: Yes (several times) - ENDOCRINE/METABOLIC Hx Diabetes Mellitus Type 2: Yes Hx Hypothyroidism: Yes - HEMATOLOGICAL/ONCOLOGICAL Hx Blood Disorders: No - INTEGUMENTARY Hx Dermatological Problems: No Other/Comment: B/L leg erythema. Edema +1 B/L - MUSCULOSKELETAL/RHEUMATOLOGICAL Hx Falls: No - GASTROINTESTINAL Hx Gastrointestinal Disorders: (ascites) - GENITOURINARY/GYNECOLOGICAL Hx Reproductive Disorders: No - PSYCHIATRIC Hx Emotional Abuse: No Hx Physical Abuse: No Hx Substance Use: No - SURGICAL HISTORY Hx Cholecystectomy: Yes Other/Comment: hernia repair, b/l total knee replacement 1996, 2001, left pigtail stent, r elbow sx - ANESTHESIA Hx Anesthesia Reactions: No Hx Malignant Hyperthermia: No Meds Allergies/Adverse Reactions: Allergies Allergy/AdvReac Type Severity Reaction Status Date / Time No Known Allergies Allergy Verified 02/10/17 14:02 - Medications Medications: Current Medications Acetaminophen (Tylenol 325mg Tab) 650 mg PO Q4H PRN; Protocol PRN Reason: Pain, moderate (4-7) Amlodipine Besylate (Norvasc) 5 mg PO BID MOHINDER PRN Reason: Protocol Last Admin: 02/17/17 17:36 Dose: 5 mg Aspirin (Ecotrin) 81 mg PO 0800 MOHINDER PRN Reason: Protocol Collagenase (Santyl) 0 gm TOP DAILY MOHINDER PRN Reason: Protocol Furosemide (Lasix) 40 mg PO DAILY MOHINDER PRN Reason: Protocol Gabapentin (Neurontin) 300 mg PO BID MOHINDER PRN Reason: Protocol Last Admin: 02/17/17 17:35 Dose: 300 mg Cefepime HCl (Maxipime 1gm) 1 gm in 100 mls @ 100 mls/hr IVPB Q24H MOHINDER PRN Reason: Protocol Last Admin: 02/17/17 15:27 Dose: 100 mls/hr Insulin Detemir (Levemir) 14 unit SC HS MOHINDER PRN Reason: Protocol Last Admin: 02/17/17 21:44 Dose: 14 unit Insulin Human Regular (Humulin R High) 0 units SC ACHS MOHINDER PRN Reason: Protocol Last Admin: 02/18/17 06:52 Dose: 4 units Lactobacillus Acidophilus (Bacid Acidophilus) 1 cap PO BID MOHINDER PRN Reason: Protocol Last Admin: 02/17/17 17:35 Dose: 1 cap Levothyroxine Sodium (Synthroid) 88 mcg PO 0600 MOHINDER PRN Reason: Protocol Last Admin: 02/18/17 06:02 Dose: 88 mcg Metoprolol Succinate (Toprol Xl) 50 mg PO BRK MOHINDER PRN Reason: Protocol Mupirocin (Bactroban Ointment) 0 gm TOP BID MOHINDER PRN Reason: Protocol Nystatin (Mycostatin Cream) 0 ea TOP BID PRN; Protocol PRN Reason: Other Pantoprazole Sodium (Protonix Ec Tab) 40 mg PO 0600 MOHINDER PRN Reason: Protocol Last Admin: 02/18/17 06:02 Dose: 40 mg Physical Exam - Constitutional Appears: Non-toxic - Head Exam Head Exam: NORMAL INSPECTION - ENT Exam ENT Exam: Mucous Membranes Moist - Neck Exam Neck exam: Negative for: Lymphadenopathy, Meningismus - Respiratory Exam Respiratory Exam: Decreased Breath Sounds - Cardiovascular Exam Cardiovascular Exam: +S1, +S2 - GI/Abdominal Exam GI & Abdominal Exam: Soft. absent: Tenderness Results - Vital Signs Recent Vital Signs: Last Vital Signs Temp 98.7 F 02/18/17 09:01 Pulse 71 02/18/17 09:01 Resp 18 02/18/17 09:01 BP 125/63 02/18/17 09:01 Pulse Ox 95 02/18/17 09:01 - Labs Result Diagrams: 02/18/17 06:40 02/18/17 06:40 Labs: Laboratory Results - last 24 hr 02/17/17 02/18/17 02/18/17 21:33 02:03 05:58 WBC RBC Hgb Hct MCV MCH MCHC RDW Plt Count MPV Gran % Lymph % (Auto) [place] % (Auto) Eos % (Auto) Baso % (Auto) Gran # Lymph # [place] # Eos # Baso # Sodium Potassium Chloride Carbon Dioxide Anion Gap BUN Creatinine Est GFR ( Amer) Est GFR (Non-Af Amer) POC Glucose (mg/dL) 341 H 330 H 236 H Random Glucose Calcium 02/18/17 02/18/17 06:40 06:40 WBC 6.2 RBC 3.02 L Hgb 10.2 L Hct 28.2 L MCV 93.4 MCH 33.8 MCHC 36.2 RDW 15.3 H Plt Count 113 L MPV 12.5 H Gran % 66.6 Lymph % (Auto) 17.5 L [place] % (Auto) 12.5 H Eos % (Auto) 2.6 Baso % (Auto) 0.8 Gran # 4.15 Lymph # 1.1 L [place] # 0.8 H Eos # 0.2 Baso # 0.05 Sodium 140 Potassium 4.4 Chloride 105 Carbon Dioxide 23 Anion Gap 16 BUN 52 H Creatinine 3.7 H Est GFR ( Amer) 20 Est GFR (Non-Af Amer) 16 POC Glucose (mg/dL) Random Glucose 219 H Calcium 9.0 Assessment & Plan - Assessment and Plan (Free Text) Plan: Assessment left foot cellulitis with probable early osteomyelitis of the 4th digit middle and proximal phalanges in a patient with DM and peripheral vascular disease, growing Pseudomonas obesity with BMI 31 chronic liver disease history of colonic polyps atrial fibrillation COPD HTN chronic renal failure DM peripheral vascular disease asbestosis Plan continue cefepime and will need 4-6 weeks of antibiotics, with weekly ESR, CRP, CBC, CMP while on antibiotics; Pseudomonas was sensitive to Cipro but patient has prolonged QTc on EKG and we would not recommend use of Cipro
[2017-02-18] MEDS ORDERED: DiphenhydrAMINE 1% 1 EA TUBE TOP PRN (16:01)
[2017-02-18] MEDS: Cefepime 1gm in NS 100ml 1 GM/100 ML BAG IVPB SCH (16:30)
[2017-02-18] MEDS: Insulin Detemir 100 units/ml Vial (Levemir) SC SCH (21:55)
[2017-02-19] MEDS: Levothyroxine 88 MCG TAB PO SCH (05:46)
[2017-02-19] MEDS: Pantoprazole 40 mg EC Tab PO SCH (05:46)
[2017-02-19] MEDS: Insulin Reg-HIGH-Coverage SC SCH ×4 (06:44→22:00)
[2017-02-19] MEDS: Metoprolol Succinate 50 mg XL Tab PO SCH (08:08)
--- NOTE | 2017-02-19 09:35 | CP.PCM.PN ---
Subjective - Date & Time of Evaluation Date of Evaluation: 02/19/17 Time of Evaluation: 09:30 - Subjective Subjective: Podiatry Consult Note - Dr. Abbasi 71 year old male patient seen and evaluated in TCU for bilateral foot ulcerations. Patient is AAO x 3 and NAD resting comfortably in his bed with his family at bedside. Denies any acute events overnight. No new complaints to bilateral lower extremity. Patient states he has been working with physical therapy and has been ambulating with surgical shoes in place, no issues. Denies N/V/F/D/C/SOB/calf pain. Objective - Vital Signs/Intake and Output Vital Signs (last 24 hours): Temp Pulse Resp BP Pulse Ox 98.6 F 59 L 20 104/52 L 96 02/19/17 06:00 02/19/17 06:00 02/19/17 06:00 02/19/17 08:08 02/19/17 06:00 - Medications Medications: Current Medications Acetaminophen (Tylenol 325mg Tab) 650 mg PO Q4H PRN; Protocol PRN Reason: Pain, moderate (4-7) Amlodipine Besylate (Norvasc) 5 mg PO BID MOHINDER PRN Reason: Protocol Last Admin: 02/18/17 18:59 Dose: 5 mg Aspirin (Ecotrin) 81 mg PO 0800 MOHINDER PRN Reason: Protocol Last Admin: 02/19/17 08:15 Dose: 81 mg Collagenase (Santyl) 0 gm TOP DAILY MOHINDER PRN Reason: Protocol Last Admin: 02/18/17 12:57 Dose: 1 appful Diphenhydramine HCl (Benadryl Maximum Strength 1%) 0 ea TOP Q6H PRN PRN Reason: Itching / Pruritus Furosemide (Lasix) 40 mg PO DAILY MOHINDER PRN Reason: Protocol Last Admin: 02/18/17 12:22 Dose: 40 mg Gabapentin (Neurontin) 300 mg PO BID MOHINDER PRN Reason: Protocol Last Admin: 02/18/17 18:59 Dose: 300 mg Cefepime HCl (Maxipime 1gm) 1 gm in 100 mls @ 100 mls/hr IVPB Q24H MOHINDER PRN Reason: Protocol Last Admin: 02/18/17 16:30 Dose: 100 mls/hr Insulin Detemir (Levemir) 14 unit SC HS MOHINDER PRN Reason: Protocol Last Admin: 02/18/17 21:55 Dose: 14 unit Insulin Human Regular (Humulin R High) 0 units SC ACHS MOHINDER PRN Reason: Protocol Last Admin: 02/19/17 06:44 Dose: Not Given Lactobacillus Acidophilus (Bacid Acidophilus) 1 cap PO BID MOHINDER PRN Reason: Protocol Last Admin: 02/18/17 18:57 Dose: 1 cap Levothyroxine Sodium (Synthroid) 88 mcg PO 0600 MOHINDER PRN Reason: Protocol Last Admin: 02/19/17 05:46 Dose: 88 mcg Metoprolol Succinate (Toprol Xl) 50 mg PO BRK MOHINDER PRN Reason: Protocol Last Admin: 02/19/17 08:08 Dose: Not Given Mupirocin (Bactroban Ointment) 0 gm TOP BID MOHINDER PRN Reason: Protocol Last Admin: 02/18/17 18:58 Dose: Not Given Nystatin (Mycostatin Cream) 0 ea TOP BID PRN; Protocol PRN Reason: Other Pantoprazole Sodium (Protonix Ec Tab) 40 mg PO 0600 MOHINDER PRN Reason: Protocol Last Admin: 02/19/17 05:46 Dose: 40 mg - Labs Labs: 02/18/17 06:40 02/18/17 06:40 - Constitutional Appears: Well, Non-toxic, No Acute Distress - Extremities Exam Additional comments: Dressings to bilateral LE appear clean/dry/intact with no strikethrough noted. Bilateral surgical shoes present. VASC: DP and PT pulses palpable 2/4. CFT <3 seconds to all digits. Temperature gradient warm to warm b/l. No increase in warmth noted to left 4th digit. Nonpitting edema noted to left 4th digit with peeling skin, resolving. NEURO: Gross sensation diminished bilaterally. DERM: Erythema previously noted to left 4th digit is resolved. Left 4th digit with ulceration #1 noted to lateral aspect measuring approximately 1.3 x 1.3 x 0.2 cm - ulcer noted to have a mixed granular/fibrous/necrotic base with fibrin/ slough - necrotic sloughing continues to decrease with increase in granulation tissue, macerated rim and serous drainage; no probe to bone/purulence/tunneling/ undermining noted. Left foot dorsolateral 5th digit healed ulceration #2 measuring approximately 0.2 x 0.2 x 0.1 cm with eschar cap and hyperkeratotic rim; no clinical signs of infection noted at this time. Right foot 4th digit ulceration #3 noted to lateral asepct measuring approximately 0.3 x 0.3 x 0.1 cm - ulcer noted to have a mixed fibrogranular base; no drainage/purulence/ probe to bone/tunneling/undermining/erythema noted; no clinical signs of infection noted at this time. Hyperkeratotic lesion noted to dorsolateral right 5th digit. Multiple superficial abrasions noted to patient's anterior right leg from patient scratching his leg noted. Periwound erythema noted. No malodor, no drainage, no other clinical signs of infection. ORTHO: Mild tenderness upon ROM of left 4th digit and upon palpation of ulceration. - Neurological Exam Neurological Exam: Alert, Awake, Oriented x3 - Psychiatric Exam Psychiatric exam: Normal Affect, Normal Mood Assessment and Plan - Assessment and Plan (Free Text) Assessment: 71 year old male patient with bilateral foot ulcerations and probable early OM left 4th digit 2/2 diabetic neuropathy Plan: Patient seen and evaluated at bedside Discussed with attending, Dr. Abbasi Afebrile, WBC 6.2 yesterday Left foot XR reviewed - WNL Right foot XR reviewed - WNL Left foot MRI reviewed -Minimal marrow edema in proximal and middle 4th phalanx. Significance uncertain. This could represent early OM Arterial duplex bilateral LE reviewed -Limited study due to calcified vessels. -Bilateral SFA disease, L>R -Bilateral tibial disease -Per vascular risk of angiography and intervention is significant due to renal insufficiency, Cr = 3.5 Wound culture taken of left 4th digit reveals growth of pseudomonas; patient currently on Cefepime -Per ID, abx changed from meropenem to cefepime. Patient will continue with this treatment 1g q24h x28 days Patient elects to manage via conservative care - skilled nursing abx and local wound care. -Santyl applied to bilateral 4th digit wounds and dressed with DSD - Mupirocin applied to superficial ulcerations Patient WBAT in surgical shoe b/l Podiatry will continue to follow patient while in house
[2017-02-19] MEDS: Lactobacillus Acidophilus 500 MU Cap PO SCH ×2 (10:12→17:20)
[2017-02-19] MEDS: Collagenase 250 Units/gm Ointment(30 gm) TOP SCH (10:13)
--- NOTE | 2017-02-19 12:52 | PN ---
DATE: 02/19/2017 SUBJECTIVE: The patient is currently seen sitting up in bed. Family is in the room in the TCU. He is receiving IV antibiotic therapy for his Pseudomonas wound infection and possible osteomyelitis of his left fourth digit. The patient anticipates continuing antibiotics in the TCU along with rehabilitation and going home with a PICC line to receive antibiotics in the outpatient setting. His creatinine has remained stable in the mid to upper 3 range. MEDICATIONS: Medication list reviewed. The patient is on acidophilus, Bactroban ointment, Benadryl, Ecotrin, insulin, p.o. Lasix, Levemir, Maxipime, Mycostatin, Neurontin, Norvasc, Protonix, Santyl, Synthroid, Toprol, and Tylenol p.r.n. OBJECTIVE: VITAL SIGNS: Blood pressure 104/52, temperature 98.6, respiratory rate 20 with a pulse of 59. HEENT: Shows him to be normocephalic, atraumatic. Conjunctivae are pale. Sclerae nonicteric. NECK: Supple. No neck vein distention. CHEST: Clear to auscultation and percussion with no rales, rhonchi or wheezing. CARDIOVASCULAR: Shows a normal S1, S2. No audible murmurs. No rubs or gallops. ABDOMEN: Soft. Bowel sounds normal. No rebound, guarding or masses. EXTREMITIES: Show trace pitting edema of his lower extremity bilaterally. He has dressings over his left foot. Diminished lower extremity pulses bilaterally. LABORATORY DATA AND IMAGING: CBC from yesterday showed a white blood cell count of 6.2, hemoglobin 10.2 with a platelet count of 113,000. Chemistries showed a BUN of 52 with a creatinine of 3.7. His baseline creatinine is in the low 3 to 4 range depending on use of diuretic therapy. Electrolytes are normal. Glucose is 219. Calcium 9.0. Iron saturations were 20%. Last albumin was 3.7. MICROBIOLOGY: Wound cultures from his left fourth toe positive for Pseudomonas. Urine cultures are negative. Blood cultures were negative and C. diff was negative. ASSESSMENT: 1. Nonhealing ulcer of his left fourth digit with possible osteomyelitis as seen on MRI. The patient will continue a prolonged course of intravenous antibiotic therapy to receive a week of antibiotic therapy in the transitional care unit and complete the course at home via a peripherally inserted central catheter line. 2. History of stable chronic kidney disease stage 4. The patient's creatinine appears to be within his baseline range and the BUN and creatinine vary depending on the amount of diuretic therapy that the patient requires. 3. History of mild anemia. This is likely secondary to chronic kidney disease and secondary to bone marrow suppression secondary to his foot infection. 4. History of [id number] diabetes mellitus. The patient is currently on insulin. 5. Past history of atrial fibrillation, status post ablation therapy. The patient appears to be in sinus rhythm. 6. Past history of elevated ammonia levels. The patient had been on medication to lower his ammonia level. Normally, he his last ammonia level was 22.8 on 02/17/2017. 7. History of hypertension. Blood pressure is controlled. PLAN: 1. Continue rehabilitation and IV antibiotics in the TCU as per protocol. 2. PICC line for IV antibiotic use at home for definitive treatment of possible osteomyelitis of his left fourth toe. 3. Continue to monitor renal parameters on a regular basis. 4. No choice but to continue using low-dose Lasix therapy to prevent lower extremity edema and hypervolemia. 5. Continue to monitor glucose and adjust insulin accordingly. Manpreet Dalton MD cc:
[2017-02-19] MEDS: Cefepime 1gm in NS 100ml 1 GM/100 ML BAG IVPB SCH (16:11)
--- NOTE | 2017-02-19 18:22 | CP.PCM.PN ---
Subjective - Date & Time of Evaluation Date of Evaluation: 02/19/17 Time of Evaluation: 12:10 - Subjective Subjective: Comfortable, no pain in the feet, no fevers, no nausea or diarrhea. Objective - Vital Signs/Intake and Output Vital Signs (last 24 hours): Temp Pulse Resp BP Pulse Ox 98.6 F 59 L 20 104/52 L 96 02/19/17 06:00 02/19/17 06:00 02/19/17 06:00 02/19/17 08:08 02/19/17 06:00 - Medications Medications: Current Medications Acetaminophen (Tylenol 325mg Tab) 650 mg PO Q4H PRN; Protocol PRN Reason: Pain, moderate (4-7) Amlodipine Besylate (Norvasc) 5 mg PO BID MOHINDER PRN Reason: Protocol Last Admin: 02/18/17 18:59 Dose: 5 mg Aspirin (Ecotrin) 81 mg PO 0800 MOHINDER PRN Reason: Protocol Last Admin: 02/19/17 08:15 Dose: 81 mg Collagenase (Santyl) 0 gm TOP DAILY MOHINDER PRN Reason: Protocol Last Admin: 02/18/17 12:57 Dose: 1 appful Diphenhydramine HCl (Benadryl Maximum Strength 1%) 0 ea TOP Q6H PRN PRN Reason: Itching / Pruritus Furosemide (Lasix) 40 mg PO DAILY MOHINDER PRN Reason: Protocol Last Admin: 02/18/17 12:22 Dose: 40 mg Gabapentin (Neurontin) 300 mg PO BID MOHINDER PRN Reason: Protocol Last Admin: 02/18/17 18:59 Dose: 300 mg Cefepime HCl (Maxipime 1gm) 1 gm in 100 mls @ 100 mls/hr IVPB Q24H MOHINDER PRN Reason: Protocol Last Admin: 02/18/17 16:30 Dose: 100 mls/hr Insulin Detemir (Levemir) 14 unit SC HS MOHINDER PRN Reason: Protocol Last Admin: 02/18/17 21:55 Dose: 14 unit Insulin Human Regular (Humulin R High) 0 units SC ACHS MOHINDER PRN Reason: Protocol Last Admin: 02/19/17 06:44 Dose: Not Given Lactobacillus Acidophilus (Bacid Acidophilus) 1 cap PO BID MOHINDER PRN Reason: Protocol Last Admin: 02/18/17 18:57 Dose: 1 cap Levothyroxine Sodium (Synthroid) 88 mcg PO 0600 MOHINDER PRN Reason: Protocol Last Admin: 02/19/17 05:46 Dose: 88 mcg Metoprolol Succinate (Toprol Xl) 50 mg PO BRK MOHINDER PRN Reason: Protocol Last Admin: 02/19/17 08:08 Dose: Not Given Mupirocin (Bactroban Ointment) 0 gm TOP BID MOHINDER PRN Reason: Protocol Last Admin: 02/18/17 18:58 Dose: Not Given Nystatin (Mycostatin Cream) 0 ea TOP BID PRN; Protocol PRN Reason: Other Pantoprazole Sodium (Protonix Ec Tab) 40 mg PO 0600 MOHINDER PRN Reason: Protocol Last Admin: 02/19/17 05:46 Dose: 40 mg - Labs Labs: 02/18/17 06:40 02/18/17 06:40 - Constitutional Appears: Non-toxic - Respiratory Exam Respiratory Exam: Decreased Breath Sounds - Cardiovascular Exam Cardiovascular Exam: +S1, +S2 - GI/Abdominal Exam GI & Abdominal Exam: Soft. absent: Tenderness Assessment and Plan - Assessment and Plan (Free Text) Plan: Assessment left foot cellulitis with probable early osteomyelitis of the 4th digit middle and proximal phalanges in a patient with DM and peripheral vascular disease, growing Pseudomonas obesity with BMI 31 chronic liver disease history of colonic polyps atrial fibrillation COPD HTN chronic renal failure DM peripheral vascular disease asbestosis Plan continue cefepime and will need 4-6 weeks of antibiotics, with weekly ESR, CRP, CBC, CMP while on antibiotics; Pseudomonas was sensitive to Cipro but patient has prolonged QTc on EKG and we would not recommend use of Cipro
[2017-02-19] MEDS: Insulin Detemir 100 units/ml Vial (Levemir) SC SCH (22:01)
--- NOTE | 2017-02-20 00:02 | CP.PCM.PN ---
Subjective - Date & Time of Evaluation Date of Evaluation: 02/19/17 Time of Evaluation: 15:15 - Subjective Subjective: comfortable no complaints of any abdominal pain patient's was at bedside at the time of examination Objective - Vital Signs/Intake and Output Vital Signs (last 24 hours): Temp Pulse Resp BP Pulse Ox 97.8 F 62 20 127/60 100 02/19/17 16:40 02/19/17 16:40 02/19/17 16:40 02/19/17 17:20 02/19/17 16:40 Intake and Output: 02/19/17 02/20/17 18:59 06:59 Intake Total 460 Balance 460 - Medications Medications: Current Medications Acetaminophen (Tylenol 325mg Tab) 650 mg PO Q4H PRN; Protocol PRN Reason: Pain, moderate (4-7) Amlodipine Besylate (Norvasc) 5 mg PO BID MOHINDER PRN Reason: Protocol Last Admin: 02/19/17 17:20 Dose: 5 mg Aspirin (Ecotrin) 81 mg PO 0800 MOHINDER PRN Reason: Protocol Last Admin: 02/19/17 08:15 Dose: 81 mg Collagenase (Santyl) 0 gm TOP DAILY MOHINDER PRN Reason: Protocol Last Admin: 02/19/17 10:13 Dose: 1 appful Diphenhydramine HCl (Benadryl Maximum Strength 1%) 0 ea TOP Q6H PRN PRN Reason: Itching / Pruritus Furosemide (Lasix) 40 mg PO DAILY MOHINDER PRN Reason: Protocol Last Admin: 02/19/17 10:12 Dose: 40 mg Gabapentin (Neurontin) 300 mg PO BID MOHINDER PRN Reason: Protocol Last Admin: 02/19/17 17:18 Dose: 300 mg Cefepime HCl (Maxipime 1gm) 1 gm in 100 mls @ 100 mls/hr IVPB Q24H MOHINDER PRN Reason: Protocol Last Admin: 02/19/17 16:11 Dose: 100 mls/hr Insulin Detemir (Levemir) 14 unit SC HS MOHINDER PRN Reason: Protocol Last Admin: 02/19/17 22:01 Dose: 14 unit Insulin Human Regular (Humulin R High) 0 units SC ACHS MOHINDER PRN Reason: Protocol Last Admin: 02/19/17 22:00 Dose: 2 units Lactobacillus Acidophilus (Bacid Acidophilus) 1 cap PO BID MOHINDER PRN Reason: Protocol Last Admin: 02/19/17 17:20 Dose: 1 cap Levothyroxine Sodium (Synthroid) 88 mcg PO 0600 MOHINDER PRN Reason: Protocol Last Admin: 02/19/17 05:46 Dose: 88 mcg Metoprolol Succinate (Toprol Xl) 50 mg PO BRK MOHINDER PRN Reason: Protocol Last Admin: 02/19/17 08:08 Dose: Not Given Mupirocin (Bactroban Ointment) 0 gm TOP BID MOHINDER PRN Reason: Protocol Last Admin: 02/19/17 17:17 Dose: Not Given Nystatin (Mycostatin Cream) 0 ea TOP BID PRN; Protocol PRN Reason: Other Pantoprazole Sodium (Protonix Ec Tab) 40 mg PO 0600 MOHINDER PRN Reason: Protocol Last Admin: 02/19/17 05:46 Dose: 40 mg - Labs Labs: 02/18/17 06:40 02/18/17 06:40 - Constitutional Appears: No Acute Distress - Head Exam Head Exam: ATRAUMATIC. absent: NORMOCEPHALIC - Eye Exam Eye Exam: EOMI, PERRL - ENT Exam ENT Exam: Mucous Membranes Moist, Normal External Ear Exam - Neck Exam Neck Exam: Full ROM. absent: Lymphadenopathy - Respiratory Exam Respiratory Exam: Clear to Ausculation Bilateral, NORMAL BREATHING PATTERN - Cardiovascular Exam Cardiovascular Exam: +S1, +S2 - GI/Abdominal Exam GI & Abdominal Exam: Soft. absent: Tenderness Assessment and Plan - Assessment and Plan (Free Text) Assessment: 72-year-old patient with his cirrhosis of the liver history of hepatic encephalopathy cellulitis of the foot Clinically appears stable no asterixis noticed. Follow-up ammonia level off the lactulose now considers to continue Xifaxan Will discuss with the PCP
[2017-02-20] MEDS: Levothyroxine 88 MCG TAB PO SCH (06:15)
[2017-02-20] MEDS: Pantoprazole 40 mg EC Tab PO SCH (06:15)
[2017-02-20] MEDS: Insulin Reg-HIGH-Coverage SC SCH ×4 (06:30→21:47)
[2017-02-20 06:44] LABS: HEMATOCRIT 27.5 % (42.0-52.0); MEAN CELL VOLUME 93.5 fl (80.0-105.0); MEAN CORPUSCULAR HGB CONC 36.4 g/dl (31.0-37.0); MEAN PLATELET VOLUME 11.8 fl (7.0-11.0); RED CELL DISTRIBUTION WIDTH 15.1 % (11.5-14.5)
[2017-02-20 07:24] LABS: ALB/GLOB RATIO 0.9 (1.1-1.8); BILIRUBIN,TOTAL 1.2 mg/dL (0.2-1.3); CALCIUM 9.1 mg/dL (8.4-10.5); MAGNESIUM 2.1 mg/dL (1.7-2.2); PHOSPHOROUS 3.8 mg/dL (2.5-4.5); POTASSIUM 4.1 mmol/L (3.6-5.0); TOTAL PROTEIN 7.3 g/dL (5.8-8.3)
[2017-02-20] MEDS: Metoprolol Succinate 50 mg XL Tab PO SCH (07:51)
[2017-02-20] MEDS: Lactobacillus Acidophilus 500 MU Cap PO SCH ×2 (11:12→17:07)
[2017-02-20] MEDS: Collagenase 250 Units/gm Ointment(30 gm) TOP SCH (11:13)
--- NOTE | 2017-02-20 13:06 | CP.PCM.PN ---
Subjective - Date & Time of Evaluation Date of Evaluation: 02/20/17 Time of Evaluation: 13:04 - Subjective Subjective: Podiatry Consult Note - Dr. Abbasi 71 year old male patient seen and evaluated in TCU for bilateral foot ulcerations and superficial abrasions to right anterior leg. Patient is AAO x 3 and NAD resting comfortably in his bed with his family at bedside. Denies any acute events overnight. No new complaints to bilateral lower extremity. Patient states he has been working with physical therapy and has been ambulating with surgical shoes in place, no issues. Denies N/V/F/D/C/SOB/calf pain. Objective - Vital Signs/Intake and Output Vital Signs (last 24 hours): Temp Pulse Resp BP Pulse Ox 98.7 F 68 18 118/60 98 02/20/17 10:23 02/20/17 10:23 02/20/17 10:23 02/20/17 11:12 02/20/17 10:23 Intake and Output: 02/20/17 02/20/17 06:59 18:59 Intake Total 460 Balance 460 - Medications Medications: Current Medications Acetaminophen (Tylenol 325mg Tab) 650 mg PO Q4H PRN; Protocol PRN Reason: Pain, moderate (4-7) Amlodipine Besylate (Norvasc) 5 mg PO BID MOHINDER PRN Reason: Protocol Last Admin: 02/20/17 11:12 Dose: Not Given Aspirin (Ecotrin) 81 mg PO 0800 MOHINDER PRN Reason: Protocol Last Admin: 02/20/17 08:19 Dose: 81 mg Collagenase (Santyl) 0 gm TOP DAILY MOHINDER PRN Reason: Protocol Last Admin: 02/20/17 11:13 Dose: 1 appful Diphenhydramine HCl (Benadryl Maximum Strength 1%) 0 ea TOP Q6H PRN PRN Reason: Itching / Pruritus Furosemide (Lasix) 40 mg PO DAILY MOHINDER PRN Reason: Protocol Last Admin: 02/20/17 11:12 Dose: 40 mg Gabapentin (Neurontin) 300 mg PO BID MOHINDER PRN Reason: Protocol Last Admin: 02/20/17 11:12 Dose: 300 mg Cefepime HCl (Maxipime 1gm) 1 gm in 100 mls @ 100 mls/hr IVPB Q24H MOHINDER PRN Reason: Protocol Stop: 02/20/17 15:16 Last Admin: 02/19/17 16:11 Dose: 100 mls/hr Cefepime HCl (Maxipime 2gm) 2 gm in 100 mls @ 100 mls/hr IVPB DAILY MOHINDER PRN Reason: Protocol Stop: 02/26/17 10:01 Insulin Detemir (Levemir) 14 unit SC HS MOHINDER PRN Reason: Protocol Last Admin: 02/19/17 22:01 Dose: 14 unit Insulin Human Regular (Humulin R High) 0 units SC ACHS MOHINDER PRN Reason: Protocol Last Admin: 02/20/17 12:07 Dose: 4 units Lactobacillus Acidophilus (Bacid Acidophilus) 1 cap PO BID MOHINDER PRN Reason: Protocol Last Admin: 02/20/17 11:12 Dose: 1 cap Levothyroxine Sodium (Synthroid) 88 mcg PO 0600 MOHINDER PRN Reason: Protocol Last Admin: 02/20/17 06:15 Dose: 88 mcg Metoprolol Succinate (Toprol Xl) 50 mg PO BRK MOHINDER PRN Reason: Protocol Last Admin: 02/20/17 07:51 Dose: Not Given Mupirocin (Bactroban Ointment) 0 gm TOP BID MOHINDER PRN Reason: Protocol Last Admin: 02/20/17 11:11 Dose: 1 apful Nystatin (Mycostatin Cream) 0 ea TOP BID PRN; Protocol PRN Reason: Other Pantoprazole Sodium (Protonix Ec Tab) 40 mg PO 0600 MOHINDER PRN Reason: Protocol Last Admin: 02/20/17 06:15 Dose: 40 mg - Labs Labs: 02/20/17 06:20 02/20/17 06:20 - Constitutional Appears: Well, Non-toxic, No Acute Distress - Extremities Exam Additional comments: Dressings to bilateral LE appear clean/dry/intact with no strikethrough noted. Bilateral surgical shoes present. VASC: DP and PT pulses palpable 2/4. CFT <3 seconds to all digits. Temperature gradient warm to warm b/l. No increase in warmth noted to left 4th digit. Nonpitting edema noted to left 4th digit with peeling skin, resolving. NEURO: Gross sensation diminished bilaterally. DERM: Erythema previously noted to left 4th digit is resolved. Left 4th digit with ulceration #1 noted to lateral aspect measuring approximately 1.3 x 1.3 x 0.2 cm - ulcer noted to have a mixed granular/fibrous/necrotic base with fibrin/ slough - necrotic sloughing continues to decrease with increase in granulation tissue, macerated rim and serous drainage; no probe to bone/purulence/tunneling/ undermining noted. Left foot dorsolateral 5th digit healed ulceration #2 measuring approximately 0.2 x 0.2 x 0.1 cm with eschar cap and hyperkeratotic rim; no clinical signs of infection noted at this time. Right foot 4th digit ulceration #3 noted to lateral asepct measuring approximately 0.3 x 0.3 x 0.1 cm - ulcer noted to have a mixed fibrogranular base; no drainage/purulence/ probe to bone/tunneling/undermining/erythema noted; no clinical signs of infection noted at this time. Hyperkeratotic lesion noted to dorsolateral right 5th digit. Multiple superficial abrasions noted to patient's anterior right leg from patient scratching his leg noted. Periwound erythema noted; improved since yesterday. No malodor, no drainage, no other clinical signs of infection. ORTHO: Mild tenderness upon ROM of left 4th digit and upon palpation of ulceration. No POP to b/l calves - Neurological Exam Neurological Exam: Alert, Awake, Oriented x3 - Psychiatric Exam Psychiatric exam: Normal Affect, Normal Mood Assessment and Plan - Assessment and Plan (Free Text) Assessment: 71 year old male patient with bilateral foot ulcerations and probable early OM left 4th digit 2/2 diabetic neuropathy as well as superficial abrasions to right anterior leg Plan: Patient seen and evaluated at bedside Discussed with attending, Dr. Abbasi Labs, charts, vitals reviewed Left foot XR reviewed - WNL Right foot XR reviewed - WNL Left foot MRI reviewed -Minimal marrow edema in proximal and middle 4th phalanx. Significance uncertain. This could represent early OM Arterial duplex bilateral LE reviewed -Limited study due to calcified vessels. -Bilateral SFA disease, L>R -Bilateral tibial disease -Per vascular risk of angiography and intervention is significant due to renal insufficiency, Cr = 3.5 Wound culture taken of left 4th digit reveals growth of pseudomonas; patient currently on Cefepime -Per ID, abx changed from meropenem to cefepime. Patient will continue with this treatment 1g q24h x28 days Patient elects to manage via conservative care - tile conduit layer abx and local wound care. -Santyl applied to bilateral 4th digit wounds and dressed with DSD - Mupirocin applied to superficial ulcerations Patient WBAT in surgical shoe b/l Podiatry will continue to follow patient while in house
[2017-02-20] MEDS: Cefepime 1gm in NS 100ml 1 GM/100 ML BAG IVPB SCH (15:11)
--- NOTE | 2017-02-20 16:54 | CP.PCM.PN ---
Subjective - Date & Time of Evaluation Date of Evaluation: 02/20/17 Time of Evaluation: 11:25 - Subjective Subjective: Comfortable, currently no pain in the left foot. No fevers overnight. Objective - Vital Signs/Intake and Output Vital Signs (last 24 hours): Temp Pulse Resp BP Pulse Ox 97.8 F 67 20 103/49 L 100 02/19/17 16:40 02/20/17 07:51 02/19/17 16:40 02/20/17 07:51 02/19/17 16:40 Intake and Output: 02/20/17 02/20/17 06:59 18:59 Intake Total 460 Balance 460 - Medications Medications: Current Medications Acetaminophen (Tylenol 325mg Tab) 650 mg PO Q4H PRN; Protocol PRN Reason: Pain, moderate (4-7) Amlodipine Besylate (Norvasc) 5 mg PO BID MOHINDER PRN Reason: Protocol Last Admin: 02/19/17 17:20 Dose: 5 mg Aspirin (Ecotrin) 81 mg PO 0800 MOHINDER PRN Reason: Protocol Last Admin: 02/20/17 08:19 Dose: 81 mg Collagenase (Santyl) 0 gm TOP DAILY MOHINDER PRN Reason: Protocol Last Admin: 02/19/17 10:13 Dose: 1 appful Diphenhydramine HCl (Benadryl Maximum Strength 1%) 0 ea TOP Q6H PRN PRN Reason: Itching / Pruritus Furosemide (Lasix) 40 mg PO DAILY MOHINDER PRN Reason: Protocol Last Admin: 02/19/17 10:12 Dose: 40 mg Gabapentin (Neurontin) 300 mg PO BID MOHINDER PRN Reason: Protocol Last Admin: 02/19/17 17:18 Dose: 300 mg Cefepime HCl (Maxipime 1gm) 1 gm in 100 mls @ 100 mls/hr IVPB Q24H MOHINDER PRN Reason: Protocol Last Admin: 02/19/17 16:11 Dose: 100 mls/hr Cefepime HCl (Maxipime 2gm) 2 gm in 100 mls @ 100 mls/hr IVPB DAILY MOHINDER PRN Reason: Protocol Stop: 02/26/17 10:01 Insulin Detemir (Levemir) 14 unit SC HS MOHINDER PRN Reason: Protocol Last Admin: 02/19/17 22:01 Dose: 14 unit Insulin Human Regular (Humulin R High) 0 units SC ACHS MOHINDER PRN Reason: Protocol Last Admin: 02/20/17 06:30 Dose: 2 units Lactobacillus Acidophilus (Bacid Acidophilus) 1 cap PO BID MOHINDER PRN Reason: Protocol Last Admin: 02/19/17 17:20 Dose: 1 cap Levothyroxine Sodium (Synthroid) 88 mcg PO 0600 MOHINDER PRN Reason: Protocol Last Admin: 02/20/17 06:15 Dose: 88 mcg Metoprolol Succinate (Toprol Xl) 50 mg PO BRK MOHINDER PRN Reason: Protocol Last Admin: 02/20/17 07:51 Dose: Not Given Mupirocin (Bactroban Ointment) 0 gm TOP BID MOHINDER PRN Reason: Protocol Last Admin: 02/19/17 17:17 Dose: Not Given Nystatin (Mycostatin Cream) 0 ea TOP BID PRN; Protocol PRN Reason: Other Pantoprazole Sodium (Protonix Ec Tab) 40 mg PO 0600 MOHINDER PRN Reason: Protocol Last Admin: 02/20/17 06:15 Dose: 40 mg - Labs Labs: 02/20/17 06:20 02/20/17 06:20 - Constitutional Appears: Non-toxic - Head Exam Head Exam: NORMAL INSPECTION - ENT Exam ENT Exam: Mucous Membranes Moist - Neck Exam Neck Exam: absent: Meningismus - Respiratory Exam Respiratory Exam: Decreased Breath Sounds - Cardiovascular Exam Cardiovascular Exam: +S1, +S2 - GI/Abdominal Exam GI & Abdominal Exam: Soft. absent: Tenderness Assessment and Plan - Assessment and Plan (Free Text) Plan: Assessment left foot cellulitis with probable early osteomyelitis of the 4th digit middle and proximal phalanges in a patient with DM and peripheral vascular disease, growing Pseudomonas obesity with BMI 31 chronic liver disease history of colonic polyps atrial fibrillation COPD HTN chronic renal failure DM peripheral vascular disease asbestosis Plan continue cefepime and will recommend 4-6 weeks of antibiotics, with weekly ESR, CRP, CBC, CMP while on antibiotics; Pseudomonas was sensitive to Cipro but patient has prolonged QTc on EKG and we would not recommend use of Cipro will get ESR and CRP today
[2017-02-20] MEDS: Insulin Detemir 100 units/ml Vial (Levemir) SC SCH (21:46)
[2017-02-21] MEDS: Pantoprazole 40 mg EC Tab PO SCH (05:55)
[2017-02-21] MEDS: Levothyroxine 88 MCG TAB PO SCH (05:55)
[2017-02-21] MEDS: Cefepime IV 2 gm in NS 2 GM/100 ML BAG IVPB SCH (05:55)
[2017-02-21 06:32] LABS: MEAN CELL VOLUME 93.3 fl (80.0-105.0); MEAN CORPUSCULAR HEMOGLOBIN 33.3 pg (25.0-35.0); MEAN CORPUSCULAR HGB CONC 35.7 g/dl (31.0-37.0); MEAN PLATELET VOLUME 12.2 fl (7.0-11.0); RED CELL DISTRIBUTION WIDTH 15.3 % (11.5-14.5); WHITE BLOOD COUNT 5.7 10^3/ul (4.5-11.0)
[2017-02-21] MEDS: Insulin Reg-HIGH-Coverage SC SCH ×4 (06:32→22:08)
[2017-02-21 07:07] LABS: ALB/GLOB RATIO 0.9 (1.1-1.8); BILIRUBIN,TOTAL 1.4 mg/dL (0.2-1.3); CALCIUM 9.3 mg/dL (8.4-10.5); TOTAL PROTEIN 7.3 g/dL (5.8-8.3)
--- NOTE | 2017-02-21 07:34 | CP.PCM.PN ---
Subjective - Date & Time of Evaluation Date of Evaluation: 02/21/17 Time of Evaluation: 06:45 - Subjective Subjective: Podiatry Consult Note - Dr. Abbasi 72 year old male patient seen and evaluated with attending, Dr. Abbasi, in TCU for bilateral foot ulcerations and superficial abrasions to right anterior leg. Patient is hemodynamically stable and NAD. Denies any acute events overnight. Patient states he has been using Benadryl cream to relive any itchiness in his right leg; states the redness in his leg has decreased. Patient is aware he is to follow up with Dr. Abbasi in office upon discharge. Denies N/V/F/D/C/SOB/calf pain. Objective - Vital Signs/Intake and Output Vital Signs (last 24 hours): Temp Pulse Resp BP Pulse Ox 98.8 F 74 20 139/63 99 02/21/17 06:00 02/21/17 06:00 02/21/17 06:00 02/21/17 06:00 02/21/17 06:00 Intake and Output: 02/21/17 02/21/17 06:59 18:59 Intake Total 480 Balance 480 - Medications Medications: Current Medications Acetaminophen (Tylenol 325mg Tab) 650 mg PO Q4H PRN; Protocol PRN Reason: Pain, moderate (4-7) Amlodipine Besylate (Norvasc) 5 mg PO BID MOHINDER PRN Reason: Protocol Last Admin: 02/20/17 17:07 Dose: 5 mg Aspirin (Ecotrin) 81 mg PO 0800 MOHINDER PRN Reason: Protocol Last Admin: 02/20/17 08:19 Dose: 81 mg Collagenase (Santyl) 0 gm TOP DAILY MOHINDER PRN Reason: Protocol Last Admin: 02/20/17 11:13 Dose: 1 appful Diphenhydramine HCl (Benadryl Maximum Strength 1%) 0 ea TOP Q6H PRN PRN Reason: Itching / Pruritus Furosemide (Lasix) 40 mg PO DAILY MOHINDER PRN Reason: Protocol Last Admin: 02/20/17 11:12 Dose: 40 mg Gabapentin (Neurontin) 300 mg PO BID MOHINDER PRN Reason: Protocol Last Admin: 02/20/17 17:06 Dose: 300 mg Cefepime HCl (Maxipime 2gm) 2 gm in 100 mls @ 100 mls/hr IVPB 0600 MOHINDER PRN Reason: Protocol Stop: 02/26/17 06:01 Last Admin: 02/21/17 05:55 Dose: 100 mls/hr Insulin Detemir (Levemir) 14 unit SC HS MOHINDER PRN Reason: Protocol Last Admin: 02/20/17 21:46 Dose: 14 unit Insulin Human Regular (Humulin R High) 0 units SC ACHS MOHINDER PRN Reason: Protocol Last Admin: 02/21/17 06:32 Dose: Not Given Lactobacillus Acidophilus (Bacid Acidophilus) 1 cap PO BID MOHINDER PRN Reason: Protocol Last Admin: 02/20/17 17:07 Dose: 1 cap Levothyroxine Sodium (Synthroid) 88 mcg PO 0600 MOHINDER PRN Reason: Protocol Last Admin: 02/21/17 05:55 Dose: 88 mcg Metoprolol Succinate (Toprol Xl) 50 mg PO BRK MOHINDER PRN Reason: Protocol Last Admin: 02/20/17 07:51 Dose: Not Given Mupirocin (Bactroban Ointment) 0 gm TOP BID MOHINDER PRN Reason: Protocol Last Admin: 02/20/17 17:02 Dose: Not Given Nystatin (Mycostatin Cream) 0 ea TOP BID PRN; Protocol PRN Reason: Other Pantoprazole Sodium (Protonix Ec Tab) 40 mg PO 0600 MOHINDER PRN Reason: Protocol Last Admin: 02/21/17 05:55 Dose: 40 mg - Labs Labs: 02/21/17 06:15 02/21/17 06:15 - Constitutional Appears: Well, Non-toxic, No Acute Distress - Extremities Exam Additional comments: Dressings to bilateral LE appear clean/dry/intact with no strikethrough noted. Bilateral surgical shoes present. VASC: DP and PT pulses palpable 2/4. CFT <3 seconds to all digits. Temperature gradient warm to warm b/l. No increase in warmth noted to left 4th digit. Nonpitting edema noted to left 4th digit with peeling skin, resolving. No increase in warmth to anterior right leg. NEURO: Gross sensation diminished bilaterally. DERM: Erythema previously noted to left 4th digit is resolved. Left 4th digit with ulceration #1 noted to lateral aspect measuring approximately 1.3 x 1.3 x 0.2 cm - ulcer noted to have a mixed granular/fibrous/necrotic base with fibrin/ slough - necrotic sloughing continues to decrease with increase in granulation tissue, macerated rim and serous drainage; no probe to bone/purulence/tunneling/ undermining noted. Left foot dorsolateral 5th digit healed ulceration #2 measuring approximately 0.2 x 0.2 x 0.1 cm with eschar cap and hyperkeratotic rim; no clinical signs of infection noted at this time. Right foot 4th digit ulceration #3 noted to lateral asepct measuring approximately 0.3 x 0.3 x 0.1 cm - ulcer noted to have a mixed fibrogranular base; no drainage/purulence/ probe to bone/tunneling/undermining/erythema noted; no clinical signs of infection noted at this time. Hyperkeratotic lesion noted to dorsolateral right 5th digit. Multiple superficial abrasions noted to patient's anterior right leg from patient scratching his leg noted, eschar cap noted this visit. Periwound erythema noted; improved since yesterday. No malodor, no drainage, no other clinical signs of infection. ORTHO: Mild tenderness upon ROM of left 4th digit and upon palpation of ulceration. No POP to b/l calves - Neurological Exam Neurological Exam: Alert, Awake, Oriented x3 - Psychiatric Exam Psychiatric exam: Normal Affect, Normal Mood Assessment and Plan - Assessment and Plan (Free Text) Assessment: 71 year old male patient with bilateral foot ulcerations and probable early OM left 4th digit 2/2 diabetic neuropathy as well as superficial abrasions to right anterior leg Plan: Patient seen and evaluated at bedside with attending, Dr. Abbasi Afebrile, absent leukocytosis Left foot XR reviewed - WNL Right foot XR reviewed - WNL Left foot MRI reviewed -Minimal marrow edema in proximal and middle 4th phalanx. Significance uncertain. This could represent early OM Arterial duplex bilateral LE reviewed -Limited study due to calcified vessels. -Bilateral SFA disease, L>R -Bilateral tibial disease -Per vascular risk of angiography and intervention is significant due to renal insufficiency, Cr = 3.5 Wound culture taken of left 4th digit reveals growth of pseudomonas; patient currently on Cefepime -Per ID, abx changed from meropenem to cefepime. Patient will continue with this treatment 4-6 weeks, has had 1 week of abx already Patient elects to manage via conservative care - [facility]x and local wound care. -Santyl applied to bilateral 4th digit wounds and dressed with DSD - Mupirocin applied to superficial ulcerations Patient WBAT in surgical shoe b/l Podiatry will continue to follow patient while in house Advised patient to follow up with Dr. Abbasi in office within 1 week of discharge for continued wound care
--- NOTE | 2017-02-21 08:31 | CON ---
DATE: 02/18/2017 REASON FOR CONSULTATION: Advanced chronic kidney disease stage 4. HISTORY OF PRESENTING ILLNESS: A 71-year-old male known to me from prior evaluation on the medical side. The patient was initially admitted to medical side with nonhealing ulcers of his left foot. The patient was being treated with IV antibiotics. He had vascular studies which revealed bilateral SFA disease, more on the left side. Angiogram was considered, but was deferred because of advanced chronic kidney disease. The patient is currently receiving rehabilitation in the transitional care unit. He is receiving IV antibiotics. He was found to have pseudomonas in his wound infection. He denies any pain. He denies any shortness of breath. Denies any chest tightness at present. He denies any nausea, vomiting, diarrhea. PAST MEDICAL AND SURGICAL HISTORY: NIDDM, hypertension, peripheral vascular disease, chronic kidney disease stage 4, anemia of chronic kidney disease, macular degeneration, cataract surgery. FAMILY HISTORY: Diabetes and hypertension. SOCIAL HISTORY: No smoking, no alcohol use, no IV drug abuse. ALLERGIES: NO KNOWN DRUG ALLERGIES. CURRENT MEDICATIONS: Acidophilus, Bactroban, Ecotrin, insulin, Lasix, Maxipime 1 gm daily, gabapentin 300 b.i.d., amlodipine 5 b.i.d., Protonix, Santyl, Synthroid, Toprol-XL, Tylenol. REVIEW OF SYSTEMS: All systems were reviewed, pertinent positives as mentioned in the history of presenting illness. PHYSICAL EXAMINATION: GENERAL: Elderly male sitting in chair. VITAL SIGNS: Blood pressure 142/52, heart rate 70, respiratory rate 14, temperature 98.8. HEENT: Normocephalic, atraumatic, positive pallor. NECK: Supple, no JVD. LUNGS: Bilateral equal air entry, no rales. CARDIAC: S1 and S2, regular rate and rhythm, no murmur, no rub. ABDOMEN: Obese, distended, soft, nontender, bowel sounds present. EXTREMITIES: Dressing of the left foot. INTAKE AND OUTPUT: ____ ASSESSMENT: 1. Nonhealing ulcer on the left fourth toe, pseudomonas infection. 2. Jua-[id number] diabetes mellitus. 3. Hypertension. 4. Peripheral vascular disease. 5. Chronic kidney disease stage 4. PLAN: 1. Continue antibiotics. 2. Continue fingerstick monitoring and insulin coverage. 3. Continue current antihypertensives. 4. Continue physical therapy. Thank you for the courtesy of this consultation. We will follow this patient closely with you. PS: No dye study at this time. Selina Garcia MD
[2017-02-21] MEDS: Metoprolol Succinate 50 mg XL Tab PO SCH (09:07)
[2017-02-21] MEDS ORDERED: Cefepime IV 2 gm in NS 2 GM/100 ML BAG IVPB SCH (10:00)
[2017-02-21] MEDS: Lactobacillus Acidophilus 500 MU Cap PO SCH ×2 (10:21→17:52)
[2017-02-21] MEDS: Collagenase 250 Units/gm Ointment(30 gm) TOP SCH (11:52)
--- NOTE | 2017-02-21 12:13 | CP.PCM.PN ---
Subjective - Date & Time of Evaluation Date of Evaluation: 02/21/17 Time of Evaluation: 11:05 - Subjective Subjective: Comfortable in bed, occasional itching relieved by Benadryl cream. No fevers overnight. Objective - Vital Signs/Intake and Output Vital Signs (last 24 hours): Temp Pulse Resp BP Pulse Ox 98.8 F 74 20 139/63 99 02/21/17 06:00 02/21/17 06:00 02/21/17 06:00 02/21/17 09:07 02/21/17 06:00 Intake and Output: 02/21/17 02/21/17 06:59 18:59 Intake Total 480 Balance 480 - Medications Medications: Current Medications Acetaminophen (Tylenol 325mg Tab) 650 mg PO Q4H PRN; Protocol PRN Reason: Pain, moderate (4-7) Amlodipine Besylate (Norvasc) 5 mg PO BID MOHINDER PRN Reason: Protocol Last Admin: 02/20/17 17:07 Dose: 5 mg Aspirin (Ecotrin) 81 mg PO 0800 MOHINDER PRN Reason: Protocol Last Admin: 02/21/17 09:08 Dose: 81 mg Collagenase (Santyl) 0 gm TOP DAILY MOHINDER PRN Reason: Protocol Last Admin: 02/20/17 11:13 Dose: 1 appful Diphenhydramine HCl (Benadryl Maximum Strength 1%) 0 ea TOP Q6H PRN PRN Reason: Itching / Pruritus Furosemide (Lasix) 40 mg PO DAILY MOHINDER PRN Reason: Protocol Last Admin: 02/20/17 11:12 Dose: 40 mg Gabapentin (Neurontin) 300 mg PO BID MOHINDER PRN Reason: Protocol Last Admin: 02/20/17 17:06 Dose: 300 mg Cefepime HCl (Maxipime 2gm) 2 gm in 100 mls @ 100 mls/hr IVPB 0600 MOHINDER PRN Reason: Protocol Stop: 02/26/17 06:01 Last Admin: 02/21/17 05:55 Dose: 100 mls/hr Insulin Detemir (Levemir) 14 unit SC HS MOHINDER PRN Reason: Protocol Last Admin: 02/20/17 21:46 Dose: 14 unit Insulin Human Regular (Humulin R High) 0 units SC ACHS MOHINDER PRN Reason: Protocol Last Admin: 02/21/17 06:32 Dose: Not Given Lactobacillus Acidophilus (Bacid Acidophilus) 1 cap PO BID MOHINDER PRN Reason: Protocol Last Admin: 02/20/17 17:07 Dose: 1 cap Levothyroxine Sodium (Synthroid) 88 mcg PO 0600 MOHINDER PRN Reason: Protocol Last Admin: 02/21/17 05:55 Dose: 88 mcg Metoprolol Succinate (Toprol Xl) 50 mg PO BRK MOHINDER PRN Reason: Protocol Last Admin: 02/21/17 09:07 Dose: 50 mg Mupirocin (Bactroban Ointment) 0 gm TOP BID MOHINDER PRN Reason: Protocol Last Admin: 02/20/17 17:02 Dose: Not Given Nystatin (Mycostatin Cream) 0 ea TOP BID PRN; Protocol PRN Reason: Other Pantoprazole Sodium (Protonix Ec Tab) 40 mg PO 0600 MOHINDER PRN Reason: Protocol Last Admin: 02/21/17 05:55 Dose: 40 mg - Labs Labs: 02/21/17 06:15 02/21/17 06:15 - Constitutional Appears: Non-toxic - Head Exam Head Exam: NORMAL INSPECTION - ENT Exam ENT Exam: Mucous Membranes Moist - Neck Exam Neck Exam: absent: Meningismus - Respiratory Exam Respiratory Exam: Decreased Breath Sounds - Cardiovascular Exam Cardiovascular Exam: +S1, +S2 - GI/Abdominal Exam GI & Abdominal Exam: Soft. absent: Tenderness - Extremities Exam Additional comments: left foot with dressings in place Assessment and Plan - Assessment and Plan (Free Text) Plan: Assessment left foot cellulitis with probable early osteomyelitis of the 4th digit middle and proximal phalanges in a patient with DM and peripheral vascular disease, growing Pseudomonas obesity with BMI 31 chronic liver disease history of colonic polyps atrial fibrillation COPD HTN chronic renal failure DM peripheral vascular disease asbestosis Plan continue cefepime and will recommend 4-6 weeks of antibiotics (has had a week of antibiotics already), with weekly ESR, CRP, CBC, CMP while on antibiotics; Pseudomonas was sensitive to Cipro but patient has prolonged QTc on EKG and we would not recommend use of Cipro CRP still >15 as of 02/20/2017
[2017-02-21] MEDS: Insulin Detemir 100 units/ml Vial (Levemir) SC SCH (22:14)
--- NOTE | 2017-02-21 23:40 | PN ---
DATE: 02/21/2017 SUBJECTIVE: This patient was seen and evaluated today. The patient's was at the bedside. Denies any specific GI complaints. No diarrhea. Tolerating the diet. PHYSICAL EXAMINATION: VITAL SIGNS: Afebrile, temperature is 99.8, pulse 62, blood pressure is 114/63. HEENT: Atraumatic. Anicteric. NECK: Supple. HEART: S1 and S2 heard. LUNGS: Bilateral air entry present. ABDOMEN: Softly distended, nontender. LABORATORY DATA: Hemoglobin 10, hematocrit 28.0, WBC 5.7, platelets 116. BUN 53 and creatinine 3.6. LFT shows total bilirubin of 1.4, AST 82, ALT 45, alkaline phosphatase 142, ammonia level remained stable at 42.5. IMPRESSION: This 72-year-old patient with a history of cirrhosis, hepatic encephalopathy, history of chronic liver disease, diabetes mellitus, congestive heart failure, atrial fibrillation, admitted with left foot cellulitis, possible early osteomyelitis of the fourth digit, on 4 to 6 weeks of IV antibiotics . I reviewed the MAR, the patient does not have any Xifaxan, the patient was on rifaximin before. We will check with the Pharmacy and consider restarting it. Thank you very much for allowing us to participate in the care of the patient. Delbert Mejia MD
--- NOTE | 2017-02-22 02:10 | PN ---
DATE: 02/21/2017 SUBJECTIVE: The patient is seen sitting in chair. He is awake, he is alert, is comfortable. is at bedside. PHYSICAL EXAMINATION: GENERAL: Elderly male sitting in chair. VITAL SIGNS: Blood pressure 114/63, heart rate 62, respiratory rate 18, temperature 99.8, T-max 99.8. HEENT: Normocephalic, atraumatic. NECK: Supple, no JVD. LUNGS: Bilateral equal entry, rales. CARDIAC: S1 and S2. Regular rate and rhythm, no murmur, no rub. ABDOMEN: Obese, distended, soft, positive fluid thrill. Bowel sounds present. EXTREMITIES: Dressing of the left foot. INTAKE AND OUTPUT: Not charted. LABORATORY DATA: WBC 5.7, hemoglobin 10, hematocrit 28, platelet 116. Sodium 140, potassium 4.0, chloride 107, CO2 of 22, BUN 53, creatinine 3.6, glucose 124, calcium 9.3, total bili 1.4, AST 82, ALT 45, albumin 3.4. CURRENT MEDICATIONS: Acidophilus, Ecotrin, insulin, Lasix 40 p.o. daily, Levemir 14, Maxipime 2 grams, Mycostatin Neurontin, amlodipine 5 b.i.d., Protonix 40, Synthroid, Toprol XL, Tylenol. ASSESSMENT: 1. Non-insulin dependent diabetes mellitus. 2. Hypertension. 3. Advanced chronic kidney disease stage IV. 4. Pseudomonas wound infection, left foot. 5. Peripheral vascular disease. PLAN: 1. Continue antibiotics. 2. Continue fingerstick monitoring and insulin coverage. 3. Continue current antihypertensives. 4. Monitor labs two to three times per week. Selina Garcia MD
[2017-02-22] MEDS: Cefepime IV 2 gm in NS 2 GM/100 ML BAG IVPB SCH (05:10)
[2017-02-22] MEDS: Pantoprazole 40 mg EC Tab PO SCH (05:11)
[2017-02-22] MEDS: Levothyroxine 88 MCG TAB PO SCH (05:11)
[2017-02-22] MEDS: Insulin Reg-HIGH-Coverage SC SCH ×4 (06:50→22:27)
[2017-02-22 07:21] LABS: HEMATOCRIT 29.3 % (42.0-52.0); MEAN CELL VOLUME 93.9 fl (80.0-105.0); MEAN CORPUSCULAR HEMOGLOBIN 33.3 pg (25.0-35.0); MEAN CORPUSCULAR HGB CONC 35.5 g/dl (31.0-37.0); RED CELL DISTRIBUTION WIDTH 15.5 % (11.5-14.5); WHITE BLOOD COUNT 6.9 10^3/ul (4.5-11.0)
[2017-02-22 07:35] LABS: ALB/GLOB RATIO 0.9 (1.1-1.8); BILIRUBIN,TOTAL 1.4 mg/dL (0.2-1.3); CALCIUM 9.4 mg/dL (8.4-10.5); POTASSIUM 4.5 mmol/L (3.6-5.0); TOTAL PROTEIN 7.5 g/dL (5.8-8.3)
[2017-02-22] MEDS: Metoprolol Succinate 50 mg XL Tab PO SCH (07:59)
[2017-02-22] MEDS: Lactobacillus Acidophilus 500 MU Cap PO SCH ×2 (10:26→17:50)
[2017-02-22] MEDS: Collagenase 250 Units/gm Ointment(30 gm) TOP SCH (10:26)
--- NOTE | 2017-02-22 11:38 | CP.PCM.PN ---
Subjective - Date & Time of Evaluation Date of Evaluation: 02/22/17 Time of Evaluation: 11:38 - Subjective Subjective: Podiatry Progress Note - Dr. Abbasi 72 year old male patient seen and evaluated in TCU for bilateral foot ulcerations and superficial abrasions to right anterior leg. Patient is hemodynamically stable and NAD. present at bedside. Denies any acute events overnight. Patient has been using Bendaryl cream as needed for itchiness to right leg. Reports continued mild pain to left 4th toe. Patient has been working with physical therapy without any issues. Patient aware he is to follow up with Dr. Abbasi in office 1 week of discharge. Denies N/V/F/D/C/SOB/calf pain. Objective - Vital Signs/Intake and Output Vital Signs (last 24 hours): Temp Pulse Resp BP Pulse Ox 99.8 F H 62 18 105/60 96 02/21/17 17:30 02/21/17 17:30 02/21/17 17:30 02/22/17 10:26 02/21/17 17:30 - Medications Medications: Current Medications Acetaminophen (Tylenol 325mg Tab) 650 mg PO Q4H PRN; Protocol PRN Reason: Pain, moderate (4-7) Amlodipine Besylate (Norvasc) 5 mg PO BID MOHINDER PRN Reason: Protocol Last Admin: 02/22/17 10:26 Dose: Not Given Aspirin (Ecotrin) 81 mg PO 0800 MOHINDER PRN Reason: Protocol Last Admin: 02/22/17 10:25 Dose: 81 mg Collagenase (Santyl) 0 gm TOP DAILY MOHINDER PRN Reason: Protocol Last Admin: 02/22/17 10:26 Dose: 1 appful Diphenhydramine HCl (Benadryl Maximum Strength 1%) 0 ea TOP Q6H PRN PRN Reason: Itching / Pruritus Furosemide (Lasix) 40 mg PO DAILY MOHINDER PRN Reason: Protocol Last Admin: 02/22/17 10:26 Dose: 40 mg Gabapentin (Neurontin) 300 mg PO BID MOHINDER PRN Reason: Protocol Last Admin: 02/22/17 10:26 Dose: 300 mg Cefepime HCl (Maxipime 2gm) 2 gm in 100 mls @ 100 mls/hr IVPB 0600 MOHINDER PRN Reason: Protocol Stop: 02/26/17 06:01 Last Admin: 02/22/17 05:10 Dose: 100 mls/hr Insulin Detemir (Levemir) 14 unit SC HS MOHINDER PRN Reason: Protocol Last Admin: 02/21/17 22:14 Dose: 14 unit Insulin Human Regular (Humulin R High) 0 units SC ACHS MOHINDER PRN Reason: Protocol Last Admin: 02/22/17 06:50 Dose: 2 units Lactobacillus Acidophilus (Bacid Acidophilus) 1 cap PO BID MOHINDER PRN Reason: Protocol Last Admin: 02/22/17 10:26 Dose: 1 cap Levothyroxine Sodium (Synthroid) 88 mcg PO 0600 MOHINDER PRN Reason: Protocol Last Admin: 02/22/17 05:11 Dose: 88 mcg Metoprolol Succinate (Toprol Xl) 50 mg PO BRK MOHINDER PRN Reason: Protocol Last Admin: 02/22/17 07:59 Dose: Not Given Mupirocin (Bactroban Ointment) 0 gm TOP BID MOHINDER PRN Reason: Protocol Last Admin: 02/22/17 10:25 Dose: 1 apful Nystatin (Mycostatin Cream) 0 ea TOP BID PRN; Protocol PRN Reason: Other Pantoprazole Sodium (Protonix Ec Tab) 40 mg PO 0600 MOHINDER PRN Reason: Protocol Last Admin: 02/22/17 05:11 Dose: 40 mg - Labs Labs: 02/22/17 06:45 02/22/17 06:45 - Constitutional Appears: Well, Non-toxic, No Acute Distress - Extremities Exam Additional comments: Dressings to bilateral LE appear clean/dry/intact with no strikethrough noted. Bilateral surgical shoes present. VASC: DP and PT pulses palpable 2/4. CFT <3 seconds to all digits. Temperature gradient warm to warm b/l. No increase in warmth noted to left 4th digit. Nonpitting edema noted to left 4th digit is decreasing. No increase in warmth to anterior right leg. NEURO: Gross sensation diminished bilaterally. DERM: Erythema previously noted to left 4th digit is resolved with peeling skin noted. Left 4th digit with ulceration #1 noted to lateral aspect measuring approximately 1.3 x 1.3 x 0.2 cm - ulcer noted to have a mixed granular/fibrous/ necrotic base with fibrin/slough - necrotic sloughing continues to decrease with increase in granulation tissue, macerated rim and serous drainage; no probe to bone/purulence/tunneling/undermining noted. Left foot dorsolateral 5th digit healed ulceration #2 measuring approximately 0.2 x 0.2 x 0.1 cm with eschar cap and hyperkeratotic rim; no clinical signs of infection noted at this time. Right foot 4th digit ulceration #3 noted to lateral asepct measuring approximately 0.3 x 0.3 x 0.1 cm - ulcer noted to have a mixed fibrogranular base; no drainage/purulence/probe to bone/tunneling/undermining/erythema noted; no clinical signs of infection noted at this time. Hyperkeratotic lesion noted to dorsolateral right 5th digit. Multiple superficial abrasions with eschar caps noted to patient's anterior right leg from patient scratching his leg noted. Periwound erythema noted; improving. No malodor, no drainage, no other clinical signs of infection. ORTHO: Mild tenderness upon ROM of left 4th digit and upon palpation of ulceration. No POP to b/l calves - Neurological Exam Neurological Exam: Alert, Awake, Oriented x3 - Psychiatric Exam Psychiatric exam: Normal Affect, Normal Mood Assessment and Plan - Assessment and Plan (Free Text) Assessment: 71 year old male patient with bilateral foot ulcerations and probable early OM left 4th digit 2/2 diabetic neuropathy as well as superficial abrasions to right anterior leg Plan: Patient seen and evaluated at bedside Discussed with attending, Dr. Abbasi Afebrile, absent leukocytosis Left foot XR reviewed - WNL Right foot XR reviewed - WNL Left foot MRI reviewed -Minimal marrow edema in proximal and middle 4th phalanx. Significance uncertain. This could represent early OM Arterial duplex bilateral LE reviewed -Limited study due to calcified vessels. -Bilateral SFA disease, L>R -Bilateral tibial disease -Per vascular risk of angiography and intervention is significant due to renal insufficiency, Cr = 3.5 Wound culture taken of left 4th digit reveals growth of pseudomonas; patient currently on Cefepime -Per ID, abx changed from meropenem to cefepime. 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 -Santyl applied to bilateral 4th digit wounds and dressed with DSD - Mupirocin applied to superficial ulcerations Patient WBAT in surgical shoe b/l Continue PT Podiatry will continue to follow patient while in house Advised patient to follow up with Dr. Abbasi in office within 1 week of discharge for continued wound care Patient to do QD dressing changes at home once discharged - Alicia with 4x4
--- NOTE | 2017-02-22 16:00 | PN ---
DATE: SUBJECTIVE: The patient is currently seen sitting in a chair in the TCU. He anticipates being here another 3 days. He is receiving IV antibiotic therapy for his Pseudomonas infection of his left fourth toe with possible osteomyelitis. He had a PICC line placed in his left upper extremity C. MEDICATIONS: Medication list reviewed. The patient is on acidophilus, Bactroban, Benadryl p.r.n., Ecotrin, insulin, p.o. Lasix, Levemir, Maxipime, Mycostatin cream, Neurontin, Norvasc, Protonix, Santyl, Synthroid, Toprol, and Tylenol p.r.n. OBJECTIVE: VITAL SIGNS: Blood pressure 105/57, temperature of 97.5, pulse is 64, and respiratory rate is 20. HEENT: Normocephalic, atraumatic. Conjunctivae are pale. Sclerae are nonicteric. NECK: Supple. No neck vein distention. CHEST: Clear to auscultation and percussion. No rales, rhonchi, or wheezing. CARDIOVASCULAR: Shows a normal S1 and S2 with no murmurs, rubs or gallops. ABDOMEN: Soft. Bowel sounds normal. No rebound, guarding, or masses. EXTREMITIES: Show trace to 1+ pitting edema with mild erythema of his lower extremity bilaterally. He has a dressing over his left foot. Diminished lower extremity pulses bilaterally. LABORATORY DATA AND IMAGING: CBC, white blood cell count 6.9, hemoglobin 10.4, platelet count is 129,000. Chemistries today showed normal electrolytes. BUN 49 down from a high of 55, creatinine is 3.5 down from a high of 3.7 since arrival of the TCU. Glucose is 149, calcium 9.4, last phosphorus level was 3.8, last magnesium level was 2.1. Bilirubin 1.1. Mild elevation of his liver enzymes. Albumin is 3.60. ASSESSMENT: 1. Nonhealing ulcer of his left fourth digit lower extremity with possible osteomyelitis as seen on MRI. The patient is subjected to a prolonged course of IV antibiotic therapy as per Infectious Disease. He will complete the course of antibiotic therapy at home via the PICC line of his left upper extremity. 2. History of chronic kidney disease stage IV. Creatinine appears to be stable within baseline range. If he could limit diuretic therapy his creatinine will likely stabilize in the low to mid 3 range. 3. History of mild anemia, secondary to chronic kidney disease and secondary to bone marrow suppression. 4. History of noninsulin dependent diabetes mellitus. The patient is currently on insulin. 5. Past history of atrial fibrillation, status post ablation therapy, appears to be in normal sinus rhythm. 6. History of elevated ammonia levels. His last ammonia level was acceptable at 42.5. 7. History of hypertension. Blood pressure controlled on present medical therapy. PLAN: 1. Continue rehabilitation. IV antibiotics in the TCU, he will likely be a resident there for the next 3 days. 2. Agree with placement of PICC line in preparation for IV antibiotic therapy at home. 3. Continue low dose Lasix therapy. Try and balance his elevated BUN and creatinine with his lower extremity edema. 4. Continue to follow glucose and adjust insulin accordingly. 5. The patient had an appointment for me next week; this cannot be cancel and I will see the patient back after the New Year once he completes his antibiotic therapy. Manpreet Dalton MD
--- NOTE | 2017-02-22 19:10 | PN ---
DATE: 02/22/2017 SUBJECTIVE: The patient seen early this morning in the transitional care, room 302. The patient is doing well. He states tolerating the medications well. PHYSICAL EXAMINATION: VITAL SIGNS: Temperature is 97, blood pressure is 105/50, and respiratory rate of 16. HEENT: Unremarkable. NECK: Supple. LUNGS: Decreased breath sounds. HEART: Normal S1, S2. ABDOMEN: Soft, nontender. LABORATORY EXAMINATION: Reveals a white count of 6.9, hemoglobin of 10, and platelets of 129. Chemistries reveal a BUN of 49, creatinine is 3.9. ASSESSMENT AND PLAN: This is a 72-year-old male with obesity with BMI of 31 with a left foot cellulitis and probably early osteomyelitis of the fourth digit in proximal phalanges in a patient with diabetes mellitus, peripheral vascular disease, growing Pseudomonas, currently on cefepime. Recommend 4-6 weeks of antibiotics, and we recommend sed rate, CBC, SMA-18 and C-reactive protein once weekly. Although the Pseudomonas is sensitive to Cipro, with a prolonged QTc changes on EKG, would not recommend use of Cipro. Complete 4-6 weeks of cefepime pending weekly lab results. Moustapha Frankel MD
[2017-02-22] MEDS: Insulin Detemir 100 units/ml Vial (Levemir) SC SCH (22:28)
[2017-02-23] MEDS: Cefepime IV 2 gm in NS 2 GM/100 ML BAG IVPB SCH (05:27)
[2017-02-23] MEDS: Pantoprazole 40 mg EC Tab PO SCH (05:27)
[2017-02-23] MEDS: Levothyroxine 88 MCG TAB PO SCH (05:27)
[2017-02-23] MEDS: Insulin Reg-HIGH-Coverage SC SCH ×4 (07:02→22:18)
[2017-02-23] MEDS: Metoprolol Succinate 50 mg XL Tab PO SCH (08:20)
--- NOTE | 2017-02-23 09:08 | PN ---
DATE: 02/23/2017 SUBJECTIVE: The patient is in bed in no acute distress, in room 302. PHYSICAL EXAMINATION: VITAL SIGNS: Temperature is 98, blood pressure is 106/50, and respiratory rate of 18. HEENT: Unremarkable. NECK: Supple. LUNGS: Decreased breath sounds. HEART: Normal S1, S2. ABDOMEN: Soft and nontender. LABORATORY DATA: Reveals white count of 6.9 and hemoglobin of 10. Sed rate is 55. Chemistries are noted with creatinine of 3.5. Review of orders reveals the patient to be on cefepime once daily. ASSESSMENT AND PLAN: This is a 72-year-old male with obesity, body mass index of 31, left foot cellulitis, probably early osteomyelitis on fourth digit in proximal phalanges and the patient with diabetes, peripheral vascular, is growing Pseudomonas. Recommend 4-6 weeks of antibiotics and once weekly CBC, SMA-18, C-reactive protein, and sed rate, although the Pseudomonas is sensitive to Cipro, the patient does have prolonged QTc changes on EKG, we would not recommend the use of Cipro, we will complete 4-6 weeks of cefepime once daily. Moustapha Frankel MD
[2017-02-23] MEDS ORDERED: Darbepoetin Alfa 60 mcg/ml Inj SC ONE (10:00)
[2017-02-23] MEDS: Iron Complex Polysacch 150mg Cap PO SCH (10:45)
[2017-02-23] MEDS: Lactobacillus Acidophilus 500 MU Cap PO SCH ×2 (10:45→17:43)
[2017-02-23] MEDS: Collagenase 250 Units/gm Ointment(30 gm) TOP SCH (10:46)
--- NOTE | 2017-02-23 11:10 | CP.PCM.PN ---
Subjective - Date & Time of Evaluation Date of Evaluation: 02/23/17 Time of Evaluation: 10:00 - Subjective Subjective: Seen and examined at the bedside in TCU, the chart was reviewed. Patient is moving his bowels regularly, he did have a formed stool this morning. No reports of any bleeding. Denies nausea vomiting, or abdominal pain. Tolerating oral intake. Foot pain has improved except when surrounding temp is cool. No new complaints. Objective - Vital Signs/Intake and Output Vital Signs (last 24 hours): Temp Pulse Resp BP Pulse Ox 98.5 F 71 20 106/50 L 97 02/23/17 06:00 02/23/17 06:00 02/23/17 06:00 02/23/17 08:20 02/23/17 06:00 - Medications Medications: Current Medications Acetaminophen (Tylenol 325mg Tab) 650 mg PO Q4H PRN; Protocol PRN Reason: Pain, moderate (4-7) Amlodipine Besylate (Norvasc) 5 mg PO BID MOHINDER PRN Reason: Protocol Last Admin: 02/22/17 17:42 Dose: Not Given Aspirin (Ecotrin) 81 mg PO 0800 MOHINDER PRN Reason: Protocol Last Admin: 02/23/17 08:20 Dose: 81 mg Collagenase (Santyl) 0 gm TOP DAILY MOHINDER PRN Reason: Protocol Last Admin: 02/22/17 10:26 Dose: 1 appful Diphenhydramine HCl (Benadryl Maximum Strength 1%) 0 ea TOP Q6H PRN PRN Reason: Itching / Pruritus Furosemide (Lasix) 40 mg PO DAILY MOHINDER PRN Reason: Protocol Last Admin: 02/22/17 10:26 Dose: 40 mg Gabapentin (Neurontin) 300 mg PO BID MOHINDER PRN Reason: Protocol Last Admin: 02/22/17 17:50 Dose: 300 mg Cefepime HCl (Maxipime 2gm) 2 gm in 100 mls @ 100 mls/hr IVPB 0600 MOHINDER PRN Reason: Protocol Stop: 02/26/17 06:01 Last Admin: 02/23/17 05:27 Dose: 100 mls/hr Insulin Detemir (Levemir) 14 unit SC HS MOHINDER PRN Reason: Protocol Last Admin: 02/22/17 22:28 Dose: 14 unit Insulin Human Regular (Humulin R High) 0 units SC ACHS MOHINDER PRN Reason: Protocol Last Admin: 02/23/17 07:02 Dose: 2 units Lactobacillus Acidophilus (Bacid Acidophilus) 1 cap PO BID MOHINDER PRN Reason: Protocol Last Admin: 02/22/17 17:50 Dose: 1 cap Levothyroxine Sodium (Synthroid) 88 mcg PO 0600 MOHINDER PRN Reason: Protocol Last Admin: 02/23/17 05:27 Dose: 88 mcg Metoprolol Succinate (Toprol Xl) 50 mg PO BRK MOHINDER PRN Reason: Protocol Last Admin: 02/23/17 08:20 Dose: Not Given Mupirocin (Bactroban Ointment) 0 gm TOP BID MOHINDER PRN Reason: Protocol Last Admin: 02/22/17 17:41 Dose: Not Given Nystatin (Mycostatin Cream) 0 ea TOP BID PRN; Protocol PRN Reason: Other Pantoprazole Sodium (Protonix Ec Tab) 40 mg PO 0600 MOHINDER PRN Reason: Protocol Last Admin: 02/23/17 05:27 Dose: 40 mg Polysaccharide Iron Complex (Ferrex-150) 150 mg PO DAILY MOHINDER - Labs Labs: 02/22/17 06:45 02/22/17 06:45 - Constitutional Appears: No Acute Distress - Head Exam Head Exam: NORMOCEPHALIC - Eye Exam Eye Exam: Normal appearance. absent: Scleral icterus - ENT Exam ENT Exam: Mucous Membranes Moist - Neck Exam Neck Exam: Normal Inspection - Respiratory Exam Respiratory Exam: NORMAL BREATHING PATTERN. absent: Respiratory Distress - Cardiovascular Exam Cardiovascular Exam: +S1, +S2 - GI/Abdominal Exam GI & Abdominal Exam: Soft, Normal Bowel Sounds. absent: Guarding, Tenderness, Rebound - Extremities Exam Extremities Exam: absent: Pedal Edema Additional comments: has breathable socks and open cast shoes - Neurological Exam Neurological Exam: Alert, Awake, Oriented x3 - Skin Skin Exam: Dry, Warm Assessment and Plan - Assessment and Plan (Free Text) Assessment: ASSESSMENT: Hepatic Cirrhosis H/O Hepatic encephelopathy H/O Excessive alcohol in the past Abdominal Ascites Lower extremity cellulitis, s/p MRI ? early osteomyelitis, Left foot C&S (+) Pseudomonas Aerongenosa PAD DM PLAN: on IV antibiotics as per ID diet as tolerated continue PPI monitor LFT as per ID/Podiatry noted to be off Xifaxan, check ammonia level and considering restarting Patient with family opt for conservative mgt w/ antibiotics and podiatry FU. Seen and examined w/ Dr. Mejia.
--- NOTE | 2017-02-23 15:11 | CP.PCM.PN ---
Subjective - Date & Time of Evaluation Date of Evaluation: 02/23/17 Time of Evaluation: 14:52 - Subjective Subjective: Podiatry Progress Note - Dr. Abbasi 72 year old male patient seen and evaluated in TCU for bilateral foot ulcerations and superficial abrasions to right anterior leg. Patient is hemodynamically stable and NAD. present at bedside. Denies any acute events overnight. Patient states his right leg no longer is itchy. Reports continued pain to left 4th toe, well-controlled. Denies N/V/F/D/C/SOB/calf pain. Offers no other pedal complaints at this time. Objective - Vital Signs/Intake and Output Vital Signs (last 24 hours): Temp Pulse Resp BP Pulse Ox 97.3 F L 78 20 141/69 97 02/23/17 10:00 02/23/17 10:00 02/23/17 10:00 02/23/17 10:46 02/23/17 10:00 - Medications Medications: Current Medications Acetaminophen (Tylenol 325mg Tab) 650 mg PO Q4H PRN; Protocol PRN Reason: Pain, moderate (4-7) Amlodipine Besylate (Norvasc) 5 mg PO BID MOHINDER PRN Reason: Protocol Last Admin: 02/23/17 10:46 Dose: 5 mg Aspirin (Ecotrin) 81 mg PO 0800 MOHINDER PRN Reason: Protocol Last Admin: 02/23/17 08:20 Dose: 81 mg Collagenase (Santyl) 0 gm TOP DAILY MOHINDER PRN Reason: Protocol Last Admin: 02/23/17 10:46 Dose: Not Given Diphenhydramine HCl (Benadryl Maximum Strength 1%) 0 ea TOP Q6H PRN PRN Reason: Itching / Pruritus Furosemide (Lasix) 40 mg PO DAILY MOHINDER PRN Reason: Protocol Last Admin: 02/23/17 10:46 Dose: 40 mg Gabapentin (Neurontin) 300 mg PO BID MOHINDER PRN Reason: Protocol Last Admin: 02/23/17 10:45 Dose: 300 mg Cefepime HCl (Maxipime 2gm) 2 gm in 100 mls @ 100 mls/hr IVPB 0600 MOHINDER PRN Reason: Protocol Stop: 02/26/17 06:01 Last Admin: 02/23/17 05:27 Dose: 100 mls/hr Insulin Detemir (Levemir) 14 unit SC HS MOHINDER PRN Reason: Protocol Last Admin: 02/22/17 22:28 Dose: 14 unit Insulin Human Regular (Humulin R High) 0 units SC ACHS MOHINDER PRN Reason: Protocol Last Admin: 02/23/17 12:00 Dose: 7 units Lactobacillus Acidophilus (Bacid Acidophilus) 1 cap PO BID MOHINDER PRN Reason: Protocol Last Admin: 02/23/17 10:45 Dose: 1 cap Levothyroxine Sodium (Synthroid) 88 mcg PO 0600 MOHINDER PRN Reason: Protocol Last Admin: 02/23/17 05:27 Dose: 88 mcg Metoprolol Succinate (Toprol Xl) 50 mg PO BRK MOHINDER PRN Reason: Protocol Last Admin: 02/23/17 08:20 Dose: Not Given Mupirocin (Bactroban Ointment) 0 gm TOP BID MOHINDER PRN Reason: Protocol Last Admin: 02/23/17 10:45 Dose: Not Given Nystatin (Mycostatin Cream) 0 ea TOP BID PRN; Protocol PRN Reason: Other Pantoprazole Sodium (Protonix Ec Tab) 40 mg PO 0600 MOHINDER PRN Reason: Protocol Last Admin: 02/23/17 05:27 Dose: 40 mg Polysaccharide Iron Complex (Ferrex-150) 150 mg PO DAILY MOHINDER Last Admin: 02/23/17 10:45 Dose: 150 mg - Labs Labs: 02/22/17 06:45 02/22/17 06:45 - Constitutional Appears: Well, Non-toxic, No Acute Distress - Extremities Exam Additional comments: Dressings to bilateral LE appear clean/dry/intact with no strikethrough noted. Bilateral surgical shoes present. VASC: DP and PT pulses palpable 2/4. CFT <3 seconds to all digits. Temperature gradient warm to warm b/l. No increase in warmth noted to left 4th digit. Nonpitting edema noted to left 4th digit with peeling skin, resolving. No increase in warmth to anterior right leg. NEURO: Gross sensation diminished bilaterally. DERM: Erythema previously noted to left 4th digit is resolved. Left 4th digit with ulceration #1 noted to lateral aspect measuring approximately 1.3 x 1.3 x 0.2 cm - ulcer noted to have a mixed granular/fibrous/necrotic base with fibrin/ slough - necrotic sloughing continues to decrease with increase in granulation tissue, macerated rim and serous drainage; no probe to bone/purulence/tunneling/ undermining noted. Left foot dorsolateral 5th digit healed ulceration #2 measuring approximately 0.2 x 0.2 x 0.1 cm with eschar cap and hyperkeratotic rim; no clinical signs of infection noted at this time. Right foot 4th digit ulceration #3 noted to lateral asepct measuring approximately 0.3 x 0.3 x 0.1 cm - ulcer noted to have a mixed fibrogranular base; no drainage/purulence/ probe to bone/tunneling/undermining/erythema noted; no clinical signs of infection noted at this time. Hyperkeratotic lesion noted to dorsolateral right 5th digit. Multiple superficial abrasions noted to patient's anterior right leg from patient scratching his leg noted, eschar cap noted this visit. Periwound erythema noted; continues to decrease. No malodor, no drainage, no other clinical signs of infection. ORTHO: Mild tenderness upon ROM of left 4th digit and upon palpation of ulceration. No POP to b/l calves - Neurological Exam Neurological Exam: Alert, Awake, Oriented x3 - Psychiatric Exam Psychiatric exam: Normal Affect, Normal Mood Assessment and Plan - Assessment and Plan (Free Text) Assessment: 71 year old male patient with bilateral foot ulcerations and probable early OM left 4th digit 2/2 diabetic neuropathy as well as superficial abrasions to right anterior leg Plan: Patient seen and evaluated at bedside with attending, Dr. Abbasi Afebrile, absent leukocytosis Left foot XR reviewed - WNL Right foot XR reviewed - WNL Left foot MRI reviewed -Minimal marrow edema in proximal and middle 4th phalanx. Significance uncertain. This could represent early OM Arterial duplex bilateral LE reviewed -Limited study due to calcified vessels. -Bilateral SFA disease, L>R -Bilateral tibial disease -Per vascular risk of angiography and intervention is significant due to renal insufficiency, Cr = 3.5 Wound culture taken of left 4th digit reveals growth of pseudomonas; patient currently on Cefepime -Per ID, abx changed from meropenem to cefepime. Patient will continue with this treatment 4-6 weeks, has had 1 week of abx already Patient elects to manage via conservative care - fpc abx and local wound care. -Santyl applied to bilateral 4th digit wounds and dressed with DSD -Mupirocin applied to superficial ulcerations -Instructed patient and on QD dressing changes at home once discharged. Patient WBAT in surgical shoe b/l Podiatry will continue to follow patient while in house Advised patient to follow up with Dr. Abbasi in office within 1 week of discharge for continued wound care
[2017-02-23] MEDS: Insulin Detemir 100 units/ml Vial (Levemir) SC SCH (22:17)
[2017-02-24 06:09] LABS: HEMATOCRIT 29.1 % (42.0-52.0); MEAN CELL VOLUME 93.6 fl (80.0-105.0); MEAN CORPUSCULAR HEMOGLOBIN 34.1 pg (25.0-35.0); MEAN CORPUSCULAR HGB CONC 36.4 g/dl (31.0-37.0); MEAN PLATELET VOLUME 11.5 fl (7.0-11.0); RED CELL DISTRIBUTION WIDTH 15.3 % (11.5-14.5); WHITE BLOOD COUNT 6.6 10^3/ul (4.5-11.0)
[2017-02-24 06:23] LABS: ALB/GLOB RATIO 0.9 (1.1-1.8); BILIRUBIN,TOTAL 1.7 mg/dL (0.2-1.3); CALCIUM 9.7 mg/dL (8.4-10.5); PHOSPHOROUS 3.5 mg/dL (2.5-4.5); POTASSIUM 4.2 mmol/L (3.6-5.0); TOTAL PROTEIN 7.5 g/dL (5.8-8.3)
[2017-02-24] MEDS: Levothyroxine 88 MCG TAB PO SCH (07:00)
[2017-02-24] MEDS: Cefepime IV 2 gm in NS 2 GM/100 ML BAG IVPB SCH (07:00)
[2017-02-24] MEDS: Pantoprazole 40 mg EC Tab PO SCH (07:00)
[2017-02-24] MEDS: Insulin Reg-HIGH-Coverage SC SCH ×4 (07:09→21:13)
--- NOTE | 2017-02-24 07:25 | CP.PCM.PN ---
Subjective - Date & Time of Evaluation Date of Evaluation: 02/24/17 Time of Evaluation: 07:25 - Subjective Subjective: Podiatry Progress Note - Dr. Abbasi 72 year old male patient seen and evaluated in TCU for bilateral foot ulcerations and superficial abrasions to right anterior leg. Patient is hemodynamically stable and NAD. Patient is accompanied by at bedside. No acute events overnight. No new complaints with bilateral 4th toes or front of right leg; pain to left 4th toe is well controlled. Denies N/V/F/D/C/SOB/calf pain. Patient is aware he is to follow up with Dr. Abbasi in office within 1 week of discharge; and will do daily dressing changes at home. Objective - Vital Signs/Intake and Output Vital Signs (last 24 hours): Temp Pulse Resp BP Pulse Ox 97.6 F 67 20 109/52 L 99 02/24/17 06:00 02/24/17 06:00 02/24/17 06:00 02/24/17 06:00 02/24/17 06:00 - Medications Medications: Current Medications Acetaminophen (Tylenol 325mg Tab) 650 mg PO Q4H PRN; Protocol PRN Reason: Pain, moderate (4-7) Amlodipine Besylate (Norvasc) 5 mg PO BID MOHINDER PRN Reason: Protocol Last Admin: 02/23/17 17:43 Dose: 5 mg Aspirin (Ecotrin) 81 mg PO 0800 MOHINDER PRN Reason: Protocol Last Admin: 02/23/17 08:20 Dose: 81 mg Collagenase (Santyl) 0 gm TOP DAILY MOHINDER PRN Reason: Protocol Last Admin: 02/23/17 10:46 Dose: Not Given Diphenhydramine HCl (Benadryl Maximum Strength 1%) 0 ea TOP Q6H PRN PRN Reason: Itching / Pruritus Furosemide (Lasix) 40 mg PO DAILY MOHINDER PRN Reason: Protocol Last Admin: 02/23/17 10:46 Dose: 40 mg Gabapentin (Neurontin) 300 mg PO BID MOHINDER PRN Reason: Protocol Last Admin: 02/23/17 17:43 Dose: 300 mg Cefepime HCl (Maxipime 2gm) 2 gm in 100 mls @ 100 mls/hr IVPB 0600 MOHINDER PRN Reason: Protocol Stop: 02/26/17 06:01 Last Admin: 02/24/17 07:00 Dose: 100 mls/hr Insulin Detemir (Levemir) 14 unit SC HS MOHINDER PRN Reason: Protocol Last Admin: 02/23/17 22:17 Dose: 14 unit Insulin Human Regular (Humulin R High) 0 units SC ACHS MOHINDER PRN Reason: Protocol Last Admin: 02/24/17 07:09 Dose: Not Given Lactobacillus Acidophilus (Bacid Acidophilus) 1 cap PO BID MOHINDER PRN Reason: Protocol Last Admin: 02/23/17 17:43 Dose: 1 cap Levothyroxine Sodium (Synthroid) 88 mcg PO 0600 MOHINDER PRN Reason: Protocol Last Admin: 02/24/17 07:00 Dose: 88 mcg Metoprolol Succinate (Toprol Xl) 50 mg PO BRK MOHINDER PRN Reason: Protocol Last Admin: 02/23/17 08:20 Dose: Not Given Mupirocin (Bactroban Ointment) 0 gm TOP BID MOHINDER PRN Reason: Protocol Last Admin: 02/23/17 10:45 Dose: Not Given Nystatin (Mycostatin Cream) 0 ea TOP BID PRN; Protocol PRN Reason: Other Pantoprazole Sodium (Protonix Ec Tab) 40 mg PO 0600 MOHINDER PRN Reason: Protocol Last Admin: 02/24/17 07:00 Dose: 40 mg Polysaccharide Iron Complex (Ferrex-150) 150 mg PO DAILY [facility] Last Admin: 02/23/17 10:45 Dose: 150 mg - Labs Labs: 02/24/17 05:50 02/24/17 05:50 - Constitutional Appears: Well, Non-toxic, No Acute Distress - Extremities Exam Additional comments: Dressings to bilateral LE appear clean/dry/intact with no strikethrough noted. Bilateral surgical shoes present. VASC: DP and PT pulses palpable 2/4. CFT <3 seconds to all digits. Temperature gradient warm to warm b/l. No increase in warmth noted to left 4th digit. Nonpitting edema noted to left 4th digit with peeling skin, resolving. No increase in warmth to anterior right leg. NEURO: Gross sensation diminished bilaterally. DERM: Erythema previously noted to left 4th digit is resolved. Left 4th digit with ulceration #1 noted to lateral aspect measuring approximately 1.3 x 1.3 x 0.2 cm - ulcer noted to have a mixed granular/fibrous/necrotic base with fibrin/ slough - necrotic sloughing continues to decrease with increase in granulation tissue, macerated rim and serous drainage; no probe to bone/purulence/tunneling/ undermining noted. Left foot dorsolateral 5th digit healed ulceration #2 measuring approximately 0.2 x 0.2 x 0.1 cm with eschar cap and hyperkeratotic rim; no clinical signs of infection noted at this time. Right foot 4th digit ulceration #3 noted to lateral asepct measuring approximately 0.3 x 0.3 x 0.1 cm - ulcer noted to have a mixed fibrogranular base; no drainage/purulence/ probe to bone/tunneling/undermining/erythema noted; no clinical signs of infection noted at this time. Hyperkeratotic lesion noted to dorsolateral right 5th digit. Multiple superficial abrasions noted to patient's anterior right leg from patient scratching his leg noted, eschar cap noted this visit. Periwound erythema noted; continues to decrease. No malodor, no drainage, no other clinical signs of infection. ORTHO: Mild tenderness upon ROM of left 4th digit and upon palpation of ulceration. No POP to b/l calves - Neurological Exam Neurological Exam: Alert, Awake, Oriented x3 - Psychiatric Exam Psychiatric exam: Normal Affect, Normal Mood Assessment and Plan - Assessment and Plan (Free Text) Assessment: 71 year old male patient with bilateral foot ulcerations and probable early OM left 4th digit 2/2 diabetic neuropathy as well as superficial abrasions to right anterior leg Plan: Patient seen and evaluated at bedside with attending, Dr. Abbasi Afebrile, WBC 6.6 Left foot XR reviewed - WNL Right foot XR reviewed - WNL Left foot MRI reviewed -Minimal marrow edema in proximal and middle 4th phalanx. Significance uncertain. This could represent early OM Arterial duplex bilateral LE reviewed -Limited study due to calcified vessels. -Bilateral SFA disease, L>R -Bilateral tibial disease -Per vascular risk of angiography and intervention is significant due to renal insufficiency, Cr = 3.5 Wound culture taken of left 4th digit reveals growth of pseudomonas; patient currently on Cefepime -Per ID, abx changed from meropenem to cefepime. Patient will continue with this treatment 4-6 weeks, has had 1 week of abx already Patient elects to manage via conservative care - retirement abx and local wound care. -Santyl applied to left 4th digit wound and dressed with DSD - 4x4 to right 4th digit wound -Mupirocin applied to superficial ulcerations -Instructed patient and on QD dressing changes at home once discharged. Patient WBAT in surgical shoe b/l Podiatry will continue to follow patient while in house Advised patient to follow up with Dr. Abbasi in office within 1 week of discharge for continued wound care
[2017-02-24] MEDS: Metoprolol Succinate 50 mg XL Tab PO SCH (08:54)
[2017-02-24] MEDS: Iron Complex Polysacch 150mg Cap PO SCH (10:45)
[2017-02-24] MEDS: Lactobacillus Acidophilus 500 MU Cap PO SCH ×2 (10:45→18:53)
[2017-02-24] MEDS: Collagenase 250 Units/gm Ointment(30 gm) TOP SCH (10:47)
--- NOTE | 2017-02-24 14:26 | PN ---
DATE: 02/24/2017 SUBJECTIVE: The patient is seen sitting in bed. He is awake, he is alert, he is comfortable. Denies any pain. Denies any shortness of breath. PHYSICAL EXAMINATION: GENERAL: Obese elderly male sitting in bed. VITAL SIGNS: Blood pressure 135/61, heart rate 76, respiratory rate 20, temperature 98.3. HEENT: Normocephalic, atraumatic. NECK: Supple, no JVD. LUNGS: Bilateral equal entry, no rales. EXTREMITIES: Dressing of the left foot. LABORATORY DATA: WBC 6.6, hemoglobin 10.6, hematocrit 29, platelets 123. Sodium 140, potassium 4.2, chloride 106, CO2 25, BUN 42, creatinine 2.2, glucose 108, calcium 9.7, phosphorus 3.5, magnesium 2.0, AST 90, ALT 53, albumin 3.6. CURRENT MEDICATIONS: Acidophilus, Bactroban, aspirin, iron, insulin, Lasix, Levemir, cefepime 2 g, Mycostatin, Neurontin, amlodipine, Protonix, Santyl, Synthroid, Toprol-XL. ASSESSMENT: 1. Nonhealing ulcer of the left fourth toe 2. Non-insulin dependent diabetes mellitus. 3. Hypertension. 4. Chronic kidney disease IV. 5. Cirrhosis of the liver. PLAN: 1. Continue antibiotics, needs 4 weeks of antibiotics and has PICC line placed. 2. Continue current antihypertensives. 4. Continue insulin regimen. 4. Physical therapy. 5. Discharge planning. Selina Garcia MD
--- NOTE | 2017-02-24 16:09 | CP.PCM.PCO ---
Physician Communication Note - Physician Communication Note Physician Communication Note: ammonia level 34 will restart Xifaxin 550 mg PO daily,renal insuffiency
[2017-02-24 16:39] VITALS: RESP 18
[2017-02-24] MEDS: Insulin Detemir 100 units/ml Vial (Levemir) SC SCH (21:14)
--- NOTE | 2017-02-24 21:42 | PN ---
DATE: 02/24/2017 SUBJECTIVE: The patient is seen earlier this morning in 302. The patient is tolerating his medications well. No nausea or vomiting. OBJECTIVE: VITAL SIGNS: Temperature is 98, blood pressure is 120/60, and respiratory rate of 16. HEENT: Examination of HEENT is unremarkable. NECK: Supple. LUNGS: Have decreased breath sounds. HEART: Exam shows normal S1, S2. ABDOMEN: Examination is soft, nontender. LABORATORY EXAMINATION: Reveals the patient's white count is 6.6, hemoglobin of 10, and platelets of 123. Chemistries reveal BUN of 42 and creatinine of 3.2. ASSESSMENT AND PLAN: This is a 71-year-old male with obesity with BMI of 31; left foot cellulitis, probably early osteomyelitis of the fourth digit in proximal phalanges; diabetes; peripheral vascular disease with Pseudomonas as the organism, currently on cefepime. We will recommend 4 to 6 weeks of therapy with weekly CBC, SMA-18, sed rate, C-reactive protein. Because of a prolonged QTc interval, although the Pseudomonas is sensitive to Cipro, we would not recommend use of a quinolone for prolonged QTc interval. Review of orders confirms the Pseudomonas to be active, and we will follow closely with you. Moustapha Frankel MD
--- NOTE | 2017-02-25 03:35 | PN ---
DATE: 02/24/2017 SUBJECTIVE: The patient is seen this morning in transitional care room, 302, bed 1. He is scheduled for discharge tomorrow with home IV antibiotics. PICC line is in place in the left upper extremity. 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 We will reevaluate the patient in the morning and ready for discharge. Berto Reyes MD
[2017-02-25] MEDS: Cefepime IV 2 gm in NS 2 GM/100 ML BAG IVPB SCH (05:43)
[2017-02-25] MEDS: Levothyroxine 88 MCG TAB PO SCH (05:44)
[2017-02-25] MEDS: Pantoprazole 40 mg EC Tab PO SCH (05:44)
[2017-02-25] MEDS: Insulin Reg-HIGH-Coverage SC SCH (06:49)
--- NOTE | 2017-02-25 08:07 | HP ---
CHIEF COMPLAINT: To Transitional Care Unit for IV antibiotics and some physical therapy. HISTORY OF PRESENT ILLNESS: This is a 72-year-old man, known to my own practice for many years with a history of diabetes, who presented to the acute care facility of [facility] with cellulitis of the foot and not responding to outpatient antibiotics. He was treated with IV antibiotics. MRI showed osteo of the fourth toe. The patient offered the options of surgical amputation versus antibiotics and conservative treatment. Because of the concern of his peripheral vascular disease, antibiotic option was chosen. He comes to TCU to continue his course of antibiotics where home infusion antibiotic therapy can be arranged. PAST MEDICAL HISTORY: Significant for coronary artery disease, diabetes as mentioned above, asbestosis, macular degeneration, mitral valve murmurs, history of urinary calculi, history of deep venous thromboses, hypertension and hypothyroid. SURGICAL HISTORY: Significant for cataract surgery, cholecystectomy, hernia repair, total knee replacement, colon polyp resection and cardiac ablation for SVT. SOCIAL HISTORY: He no longer smokes, but has a history of tobacco use. He is . Does not drink alcohol. Tries his best to follow diabetic diet. ALLERGIES: HE HAS NO KNOWN ALLERGIES. MEDICATIONS: Home medications include amlodipine, pantoprazole, metoprolol, Victoza, Synthroid, Novolog 70/30 insulin, Neurontin, Lasix, fenofibrate, Clozaril and aspirin 81 mg daily. REVIEW OF SYSTEMS: Unremarkable except for symptoms related to the diagnoses as listed above. PHYSICAL EXAMINATION: GENERAL: The patient is resting comfortably in the Transitional Care Unit. HEAD AND NECK: Essentially unremarkable. Conjunctivae pink. Mucous membranes are moist. NECK: Supple without masses. LUNGS: Clear. HEART: Regular with a soft II/ systolic murmur. There was mitral regurg. ABDOMEN: Overweight, nontender. EXTREMITIES: Show recent cellulitis of the left lower extremity with a wound between the fourth and fifth toe at the site of the osteo. IMPRESSION: 1. Osteomyelitis of fourth left toe. 2. Diabetes. 3. Renal insufficiency. 4. Hypertension. 5. Coronary artery disease. 6. History of supraventricular tachycardia, now status post cardiac ablation therapy. 7. Macular degeneration. 8. History of deep venous thromboses. 9. History of renal calculi. 10. Hypothyroidism. 11. Status post cataract surgery. 12. Status post cholecystectomy. 13. Status post hernia repair. 14. Status post total knee replacement. 15. History of colon polyps. 16. History of asbestosis/asbestos exposure. PLAN: The patient is admitted to Transitional Care Unit for continued antibiotics and for home antibiotic therapy can be arranged to continue course of therapy as outlined by Infectious Disease it consultant. Berto Reyes MD
[2017-02-25] MEDS: Metoprolol Succinate 50 mg XL Tab PO SCH (08:40)
[2017-02-25] MEDS: Iron Complex Polysacch 150mg Cap PO SCH (09:17)
[2017-02-25] MEDS: Lactobacillus Acidophilus 500 MU Cap PO SCH (09:17)
[2017-02-25] MEDS: Collagenase 250 Units/gm Ointment(30 gm) TOP SCH (09:18)
[2017-02-25 10:18] VITALS: BP 121/50; PULSE 67; TEMP 98.2; O2SAT 98
--- NOTE | 2017-02-25 13:19 | PN ---
DATE: 02/25/2017 SUBJECTIVE: The patient is seen early this morning in room 302. No fevers and chills. OBJECTIVE: VITAL SIGNS: Temperature is 98, blood pressure is 106/50, and respiratory rate of 18. HEENT: Unremarkable. NECK: Supple. LUNGS: Have decreased breath sounds. HEART: Normal S1 and S2. ABDOMEN: Soft and nontender. LABORATORY DATA: Reveals white count of 6.6, hemoglobin of 10, and platelets of 123. Chemistries reveals BUN of 42 and creatinine of 3.2. Microbiology is noted. ASSESSMENT AND PLAN: This is a 72-year-old male with obesity, body mass index of 31, left foot cellulitis, probably early osteomyelitis at the fourth digits in the proximal phalanx, diabetes, peripheral vascular disease, and Pseudomonas is the organism, currently on cefepime. Recommend 4-6 weeks of antibiotics. Although the Pseudomonas is sensitive to Cipro because of the prolonged QTc interval, we would not use quinolones in this patient, recommended chemistries, CBC, sed rate, and C-reactive protein once weekly. Review of the orders reveals the patient's last C-reactive protein was on the 10th 5 days ago, 15 and also on the 10th, the patient had sed rate of 55. We will follow with you. Review of the orders confirms the patient to be on cefepime, which requires renewal, which we will do so. Moustapha Frankel MD
--- NOTE | 2017-02-25 13:37 | PN ---
DATE: 02/23/2017 SUBJECTIVE: The patient is seen, sitting in chair. He is awake. He is alert. He is comfortable. He denies any abdominal pain. He denies any nausea or vomiting. He moved his bowels today. He reports his foot is healing. PHYSICAL EXAMINATION GENERAL: Elderly male sitting in chair. VITAL SIGNS: Blood pressure of 141/69, heart rate of 71, respiratory rate of 20 and temperature of 98.5. HEENT: Normocephalic and atraumatic. Positive pallor. NECK: Supple. No JVD. LUNGS: Bilateral equal entry. No rales. CARDIAC: S1 and S2. Regular rate and rhythm. No murmur. No rub. ABDOMEN: Obese, distended, soft and nontender. Bowel sounds are present. EXTREMITIES: Dressing of the left foot. INTAKE AND OUTPUT: Not charted. LABORATORY DATA: WBC of 6.9, hemoglobin of 10.4, hematocrit of 29 and platelets of 129. No chemistry available. CURRENT MEDICATIONS: List reviewed. ASSESSMENT: 1. Noninsulin-dependent diabetes mellitus. 2. Hypertension. 3. Chronic kidney disease, stage IV. 4. Nonhealing ulcer of the left foot. 5. Peripheral vascular disease. 6. Anemia of chronic kidney disease. 7. Cirrhosis. PLAN: 1. Continue antibiotics. 2. Monitor fingerstick and continue insulin. 3. Duration of antibiotics to be determined by Infectious Disease. 4. Continue current antihypertensives. 5. Follow up with Dr. Dalton. Selina Garcia MD
--- NOTE | 2017-02-25 14:15 | PN ---
DATE: 02/25/2017 SUBJECTIVE: The patient is seen sitting in chair. He is awake, he is alert, he is comfortable. PHYSICAL EXAMINATION: GENERAL: Elderly male sitting in chair. VITAL SIGNS: Blood pressure 121/50, heart rate 67, respiratory rate 18, and temperature 98.2. HEENT: Normocephalic, atraumatic. NECK: Supple, no JVD. LUNGS: Bilateral equal entry, no rales. EXTREMITIES: Dressing of the left foot. INTAKE AND OUTPUT: Not charted. LABORATORY DATA: No new labs. CURRENT MEDICATIONS: Maxipime 2 g daily, amlodipine, Toprol XL, Tylenol, and Synthroid. ASSESSMENT: 1. Nonhealing ulcer on the left foot, ?early osteomyelitis. 2. Stable chronic renal disease stage IV. 3. Noninsulin dependent diabetes mellitus. 4. Hypertension. PLAN: 1. Continue cefepime once a day for 4-6 weeks as per ID. 2. Continue current antihypertensives. 3. Avoid nephrotoxins. 4. Check labs weekly. 5. Followup with Dr. Dalton in the office. Selina Garcia MD
--- NOTE | 2017-02-27 19:55 | DS ---
HISTORY OF PRESENT ILLNESS: This is a 72-year-old man with history of diabetes, who presented to the acute care facility after being seen by a Sales Order Coordinator for the ulcer and cellulitis of the foot, failing outpatient antibiotic therapy. In the hospital, he was treated with IV antibiotics, osteo was seen on MRI at the fourth toe. He was given the option of antibiotics versus amputation. There was concern about peripheral vascular disease, and therefore the patient opted for the conservative approach of a prolonged course of IV antibiotics. So, he came to the Transitional Care Unit until outpatient antibiotic therapy could be arranged. This is the discharge summary for the patient's stay in the Transitional Care Unit at [facility]. During Andrew's stay in TCU, he engaged in some physical therapy, IV antibiotics were continued, arrangements were made for home IV therapy. . His was at the bedside regularly. The patient did well clinically and was ready for discharge to home. Arrangements were made with home IV infusion company and his antibiotics will start, he will continue to follow up with Dr. Jim Reyes and with the Infectious Disease bi consultant. FINAL DISCHARGE DIAGNOSES: 1. Osteomyelitis of the right foot (fourth toe). 2. Diabetes. 3. Cirrhosis. 4. Ascites. 5. Renal insufficiency. 6. Hypertension. 7. Hyperlipidemia (triglyceridemia). 8. Diabetes. 9. Diabetic neuropathy. 10. Hepatic encephalopathy with chronic elevations of serum ammonia level. PLAN: The patient was discharged to home to follow up with us and consultants in the next week or two. Berto Reyes MD
== END 2017-02-25 13:03 | disposition home health service (06) | DRG 638 ==
LOC: TRCU 14:34
PROVIDERS: ADMIT Internal Medicine; ATTEND Internal Medicine
PROC: F07Z9FZ Gait Training/Functional Ambulation Treatment using Assistive, Adaptive, Supportive or Protective Equipment (ICD-10-PCS; principal; 2017-02-18)
PROC: F07L6ZZ Therapeutic Exercise Treatment of Musculoskeletal System - Lower Back / Lower Extremity (ICD-10-PCS; 2017-02-18)
PROC: F08Z4ZZ Home Management Treatment (ICD-10-PCS; 2017-02-19)
DX: E11.69 Type 2 diabetes mellitus with other specified complication (principal); M86.8X7 Other osteomyelitis, ankle and foot; L03.116 Cellulitis of left lower limb; R18.8 Other ascites; E11.40 Type 2 diabetes mellitus with diabetic neuropathy, unspecified; E11.22 Type 2 diabetes mellitus with diabetic chronic kidney disease; N18.4 Chronic kidney disease, stage 4 (severe); I13.0 Hypertensive heart and chronic kidney disease with heart failure and stage 1 through stage 4 chronic kidney disease, or unspecified chronic kidney disease; E11.621 Type 2 diabetes mellitus with foot ulcer; E11.51 Type 2 diabetes mellitus with diabetic peripheral angiopathy without gangrene; I48.91 Unspecified atrial fibrillation; L97.519 Non-pressure chronic ulcer of other part of right foot with unspecified severity; L97.529 Non-pressure chronic ulcer of other part of left foot with unspecified severity; B96.5 Pseudomonas (aeruginosa) (mallei) (pseudomallei) as the cause of diseases classified elsewhere; K74.60 Unspecified cirrhosis of liver; J44.9 Chronic obstructive pulmonary disease, unspecified; I50.9 Heart failure, unspecified; E66.9 Obesity, unspecified; D63.1 Anemia in chronic kidney disease; H35.30 Unspecified macular degeneration; J61 Pneumoconiosis due to asbestos and other mineral fibers; Z68.31 Body mass index [BMI] 31.0-31.9, adult; Z79.4 Long term (current) use of insulin; Z86.010 Personal history of colon polyps; Z87.891 Personal history of nicotine dependence

== ENCOUNTER 2017-03-22 18:35 | Inpatient (IN) | payer OTHER ==
[2017-03-22 18:49] VITALS: BMI 33.7
[2017-03-22] MEDS ORDERED: Nitroglycerin 2% Ointment Foilpak UD TOP SCH (19:15)
[2017-03-22] MEDS: Insulin Reg-HIGH-Coverage SC SCH (22:41)
[2017-03-22] MEDS: guaiFENesin-Codeine 100-10mg/5ml Syrup (5 ml) UD PO PRN (23:20)
[2017-03-23] MEDS: Nitroglycerin 2% Ointment Foilpak UD TOP SCH ×5 (01:00→23:16)
[2017-03-23] MEDS ORDERED: Pneumococcal 23-Valent Vaccine IM ONE (02:33)
[2017-03-23] MEDS ORDERED: Influenza Vaccine 60 mcg/0.5 mL SYR (4YR UP) IM ONE (02:33)
[2017-03-23] MEDS: Cefepime 1gm in NS 100ml 1 GM/100 ML BAG IVPB SCH (06:23)
[2017-03-23] MEDS: Levothyroxine 100 MCG TAB PO SCH (06:24)
[2017-03-23] MEDS: Pantoprazole 40 mg EC Tab PO SCH (06:24)
[2017-03-23] MEDS: Insulin Reg-HIGH-Coverage SC SCH ×4 (07:53→23:00)
[2017-03-23] MEDS: Metoprolol Succinate 50 mg XL Tab PO SCH (08:53)
[2017-03-23] MEDS: Ammonium Lactate 12% Lotion (225 g) EXT SCH (10:14)
[2017-03-23] MEDS: Collagenase 250 Units/gm Ointment(30 gm) TOP SCH (10:15)
[2017-03-23] MEDS: Silver Sulfadiazine 1% Cream (25 gm) TP SCH ×2 (10:15→18:26)
[2017-03-23] MEDS: Cholecalciferol 1,000 INTLU TAB PO SCH (10:16)
[2017-03-23 14:27] LABS: BASO # 0.06 K/mm3 (0.0-2.0); BASO % 0.8 % (0.0-3.0); EOS # 0.2 (0.0-0.7); EOS % 2.4 % (1.5-5.0); GRAN # 5.67 (1.4-6.5); GRAN % 74.5 % (50.0-68.0); HEMOGLOBIN 9.2 g/dL (14.0-18.0); LYMPH # 0.9 (1.2-3.4); MEAN CORPUSCULAR HEMOGLOBIN 32.3 pg (25.0-35.0); MEAN CORPUSCULAR HGB CONC 34.3 g/dl (31.0-37.0); MEAN PLATELET VOLUME 12.2 fl (7.0-11.0); MONO # 0.8 (0.1-0.6); MONO % 10.3 % (1.0-6.0); RBC 2.85 10^6/uL (3.5-6.1); RED CELL DISTRIBUTION WIDTH 14.3 % (11.5-14.5); WHITE BLOOD COUNT 7.6 10^3/ul (4.5-11.0)
[2017-03-23 14:49] LABS: ALB/GLOB RATIO 0.8 (1.1-1.8); ALBUMIN 3.1 g/dL (3.0-4.8); CALCIUM 8.6 mg/dL (8.4-10.5); MAGNESIUM 1.9 mg/dL (1.7-2.2)
[2017-03-23] MEDS ORDERED: Darbepoetin Alfa 100 mcg/ml Inj IVP ONE (15:54)
--- NOTE | 2017-03-23 16:35 | CP.PCM.CON ---
History of Present Illness - History of Present Illness History of Present Illness: 71 year old male with PMH of obesity with BMI 32, chronic liver disease, history of colonic polyps, atrial fibrillation, COPD, HTN, chronic renal failure , DM, peripheral vascular disease, asbestosis came in initially to [facility] complaining of chest pain and was found to have NSTEMI and had cardiac cath and PCI. He is also continuing to have treatment for his left foot osteomyelitis with Cefepime and Infectious Diseases consult is consulted to continue treatment. He is now transferred to [facility] for continued medical therapy and physical therapy. He is currently tired from doing physical therapy, but denies fever or chills, no headache or dizziness, no chest pain, no SOB, no nausea or vomiting, no diarrhea, no abdominal pain, no dysuria, less pain in the left foot. Review of Systems - Review of Systems All systems: reviewed and no additional remarkable complaints except (as per HPI ) Past Patient History - Past Social History Smoking Status: Former Smoker - CARDIAC Hx Cardiac Disorders: Yes Hx Congestive Heart Failure: Yes Hx Hypertension: Yes - PULMONARY Hx Respiratory Disorders: Yes (asbestosis) - NEUROLOGICAL Hx Neurological Disorder: Yes (neuropathy "all over" pt stated) - HEENT Hx Macular Degeneration: Yes - RENAL Hx Chronic Kidney Disease: No Hx Kidney Stones: Yes (several times) - ENDOCRINE/METABOLIC Hx Diabetes Mellitus Type 2: Yes Hx Hypothyroidism: Yes - HEMATOLOGICAL/ONCOLOGICAL Hx Blood Disorders: No - INTEGUMENTARY Hx Dermatological Problems: Yes Hx Cellulitis: Yes (to feet bilaterally) Other/Comment: B/L leg erythema. Edema +1 B/L - MUSCULOSKELETAL/RHEUMATOLOGICAL Hx Falls: No - GASTROINTESTINAL Hx Gastrointestinal Disorders: (ascites) - GENITOURINARY/GYNECOLOGICAL Hx Reproductive Disorders: No - PSYCHIATRIC Hx Emotional Abuse: No Hx Physical Abuse: No Hx Substance Use: No - SURGICAL HISTORY Hx Surgeries: Yes - ANESTHESIA Hx Anesthesia Reactions: No Meds Allergies/Adverse Reactions: Allergies Allergy/AdvReac Type Severity Reaction Status Date / Time No Known Allergies Allergy Verified 02/10/17 14:02 - Medications Medications: Current Medications Acetaminophen (Tylenol 325mg Tab) 650 mg PO Q6H PRN; Protocol PRN Reason: Pain, Mild (1-3) Aspirin (Ecotrin) 81 mg PO 0800 MOHINDER PRN Reason: Protocol Calcium Acetate (Phoslo) 667 mg PO 0730,1200,1700 MOHINDER PRN Reason: Protocol Cholecalciferol (Vitamin D) 2,000 intlu PO DAILY MOHINDER PRN Reason: Protocol Clopidogrel Bisulfate (Plavix) 75 mg PO DAILY MOHINDER PRN Reason: Protocol Collagenase (Santyl) 0 gm TOP DAILY MOHINDER PRN Reason: Protocol Gabapentin (Neurontin) 300 mg PO DAILY MOHINDER PRN Reason: Protocol Guaifenesin/Codeine Phosphate (Robitussin W/Codeine) 5 ml PO Q4H PRN; Protocol PRN Reason: Cough and congestion Cefepime HCl (Maxipime 1gm) 1 gm in 100 mls @ 100 mls/hr IVPB 0600 MOHINDER PRN Reason: Protocol Stop: 03/30/17 06:59 Insulin Human Regular (Humulin R High) 0 units SC ACHS MOHINDER PRN Reason: Protocol Last Admin: 03/22/17 22:41 Dose: Not Given Lactic Acid (Lac-Hydrin 12% Lotion (225 G)) 0 gm EXT DAILY MOHINDER PRN Reason: Protocol Lactulose (Enulose) 20 gm PO DAILY MOHINDER PRN Reason: Protocol Levothyroxine Sodium (Synthroid) 100 mcg PO 0600 MOHINDER PRN Reason: Protocol Metoprolol Succinate (Toprol Xl) 50 mg PO 0800 MOHINDER PRN Reason: Protocol Mupirocin (Bactroban Ointment) 0 gm TOP BID MOHINDER PRN Reason: Protocol Nitroglycerin (Nitro-Bid 2% Oint) 1 ea TOP 0600,1200,1800,0000 MOHINDER PRN Reason: Protocol Pantoprazole Sodium (Protonix Ec Tab) 40 mg PO 0630 MOHINDER PRN Reason: Protocol Ramipril (Altace) 1.25 mg PO DAILY MOHINDER PRN Reason: Protocol Silver Sulfadiazine (Silvadene 1% 25 Gm) 0 gm TP BID MOHINDER PRN Reason: Protocol Zolpidem Tartrate (Ambien) 5 mg PO PRN; Protocol PRN Reason: Insomnia Physical Exam - Constitutional Appears: Non-toxic - Head Exam Head Exam: NORMAL INSPECTION - ENT Exam ENT Exam: Mucous Membranes Moist - Neck Exam Neck exam: Negative for: Meningismus - Respiratory Exam Respiratory Exam: Decreased Breath Sounds - Cardiovascular Exam Cardiovascular Exam: +S1, +S2 - GI/Abdominal Exam GI & Abdominal Exam: Soft. absent: Tenderness - Extremities Exam Additional comments: left foot with dressings in place Results - Labs Result Diagrams: 03/23/17 13:50 03/23/17 13:50 Assessment & Plan - Assessment and Plan (Free Text) Plan: Assessment left foot cellulitis with probable early osteomyelitis of the 4th digit middle and proximal phalanges in a patient with DM and peripheral vascular disease, growing Pseudomonas transudative ascites S/P paracentesis without evidence of infection CAD S/P PCI yesterday obesity with BMI 31 chronic liver disease history of colonic polyps atrial fibrillation COPD HTN chronic renal failure DM peripheral vascular disease asbestosis Plan continue cefepime to complete at least another 2-3 weeks of antibiotics (has had 5 weeks of antibiotics already but since the CRP is still elevated, may need to prolong for another 3-4 weeks), with weekly ESR, CRP, CBC, CMP while on antibiotics; Pseudomonas was sensitive to Cipro but patient has prolonged QTc on EKG and we would not recommend use of Cipro CRP still >15 as of 03/22/2017
[2017-03-23] MEDS: guaiFENesin-Codeine 100-10mg/5ml Syrup (5 ml) UD PO PRN (23:14)
--- NOTE | 2017-03-23 23:30 | CON ---
DATE: 03/23/2017 REASON FOR CONSULTATION: End stage renal disease, coronary artery disease, status post percutaneous transluminal coronary angioplasty and stent. HISTORY OF PRESENT ILLNESS: This is a 72-year-old male known to me from recent evaluation. The patient was admitted to the medical side with acute kidney injury. Superimposed on his chronic kidney disease stage IV/V. The patient started on dialysis. Now end-stage renal disease. The patient underwent angiogram and angioplasty. He was found to have triple-vessel disease with small vessel disease also. He is not a candidate for CABG. Therefore, the patient is going to have PTCA and stents. Currently, he is sitting in bed. He is awake, he is alert, and he is comfortable. He denies any pain. Denies any shortness of breath. Denies any chest tightness. PAST MEDICAL AND SURGICAL HISTORY: NIDDM, hypertension, CHF, cirrhosis of the liver, CAD, PTCA and stents x3, anemia of chronic kidney disease, and COPD. FAMILY HISTORY: Hypertension. SOCIAL HISTORY: No smoking, ex-alcohol abuse, and no IV drug abuse. ALLERGIES: NO KNOWN DRUG ALLERGIES. MEDICATIONS: Altace 1.25 daily, Ambien 5, Bactroban, aspirin 81, insulin, lactic acid, cefepime 1 gram daily, gabapentin 300 daily, PhosLo, Plavix 75, Protonix 40, Silvadene, Synthroid 100, Toprol-XL 50, Tylenol 325, and vitamin D. REVIEW OF SYSTEMS: All systems are reviewed, pertinent positive as based on the history of presenting illness, rest is unremarkable. PHYSICAL EXAMINATION: GENERAL: Obese elderly male sitting in bed. VITAL SIGNS: Blood pressure of 151/71, heart rate of 70, respiratory rate of 20, and temperature of 97.4. HEENT: Normocephalic and atraumatic. Positive pallor. NECK: Supple and no JVD. LUNGS: Bilateral equal entry, bilateral equal expansion, and no rales. CARDIAC: S1 and S2 , regular rate and rhythm. No murmur and no rub. ABDOMEN: Obese, distended, soft, nontender, and bowel sounds present. EXTREMITIES: 1+ pitting edema of the lower extremities. INTAKE AND OUTPUT: Not charted. LABORATORY DATA: WBC of 7.6, hemoglobin of 9.2, hematocrit of 27, and platelets of 93. Sodium of 135, potassium of 4.3, chloride of 99, CO2 of 26, BUN of 49 and creatinine of 3.6. Glucose of 270, calcium of 8.6, phosphorus of 3.2 magnesium of 1.9, total bilirubin of 1.5, AST of 70, ALT of 44, and albumin of 3.1. ASSESSMENT AND PLAN: 1. Chronic kidney disease stage V, now end-stage renal disease. 2. Anemia of chronic kidney disease, chronic liver disease. 3. Coronary artery disease, status post percutaneous transluminal coronary angioplasty and stent. 4. Ini-ekwcomu-pzelswqxg diabetes mellitus. 5. Hypertension. 6. Cirrhosis of the liver. PLAN 1. Dialysis today. 2. Continue Procrit and Venofer on dialysis. 3. Continue Plavix, as per Cardiology needs Plavix for 1 year at least. 4. Physical therapy. 5. Monitor fingerstick. 6. Arrange for outpatient dialysis at [facility] in [place]. Thank you for the courtesy of this consultation. We will follow this patient closely with you. Selina Garcia MD
[2017-03-24] MEDS: Cefepime 1gm in NS 100ml 1 GM/100 ML BAG IVPB SCH (05:16)
[2017-03-24] MEDS: Nitroglycerin 2% Ointment Foilpak UD TOP SCH ×3 (05:19→17:32)
[2017-03-24] MEDS: Levothyroxine 100 MCG TAB PO SCH (05:22)
[2017-03-24] MEDS: Pantoprazole 40 mg EC Tab PO SCH (06:40)
[2017-03-24] MEDS: Insulin Reg-HIGH-Coverage SC SCH ×4 (06:47→22:03)
[2017-03-24] MEDS: Metoprolol Succinate 50 mg XL Tab PO SCH (08:09)
[2017-03-24] MEDS: Collagenase 250 Units/gm Ointment(30 gm) TOP SCH (11:00)
[2017-03-24] MEDS: Silver Sulfadiazine 1% Cream (25 gm) TP SCH ×2 (11:00→17:35)
[2017-03-24] MEDS: Cholecalciferol 1,000 INTLU TAB PO SCH (11:00)
[2017-03-24] MEDS: Ammonium Lactate 12% Lotion (225 g) EXT SCH (11:00)
--- NOTE | 2017-03-24 14:01 | CP.PCM.CON ---
History of Present Illness - History of Present Illness History of Present Illness: Podiatry Progress Note - Dr. Abbasi 72 year old male patient PMHx CHF, HTN, HLD, DM, PVD, CKD Stage 4, afib s/p ablation seen and evaluated at bedside for left foot fourth digit ulceration. present at bedside. Patient AAO x 3 and NAD. Denies any acute overnight events. States that pain to left fourth toe is decreased today and denies any further pedal complaints at this time. States that his recent dialysis treatments have left him exhausted. Denies N/V/F/D/C/SOB/D/posterior calf pain when squeezed. Review of Systems - Review of Systems Review of Systems: ROS as per HPI Past Patient History - Past Social History Smoking Status: Former Smoker - CARDIAC Hx Cardiac Disorders: Yes Hx Congestive Heart Failure: Yes Hx Hypertension: Yes - PULMONARY Hx Respiratory Disorders: Yes (asbestosis) - NEUROLOGICAL Hx Neurological Disorder: Yes (neuropathy "all over" pt stated) - HEENT Hx Macular Degeneration: Yes - RENAL Hx Chronic Kidney Disease: No Hx Kidney Stones: Yes (several times) - ENDOCRINE/METABOLIC Hx Diabetes Mellitus Type 2: Yes Hx Hypothyroidism: Yes - HEMATOLOGICAL/ONCOLOGICAL Hx Blood Disorders: No - INTEGUMENTARY Hx Dermatological Problems: Yes Hx Cellulitis: Yes (to feet bilaterally) Other/Comment: B/L leg erythema. Edema +1 B/L - MUSCULOSKELETAL/RHEUMATOLOGICAL Hx Falls: No - GASTROINTESTINAL Hx Gastrointestinal Disorders: (ascites) - GENITOURINARY/GYNECOLOGICAL Hx Reproductive Disorders: No - PSYCHIATRIC Hx Emotional Abuse: No Hx Physical Abuse: No Hx Substance Use: No - SURGICAL HISTORY Hx Surgeries: Yes - ANESTHESIA Hx Anesthesia Reactions: No Meds Allergies/Adverse Reactions: Allergies Allergy/AdvReac Type Severity Reaction Status Date / Time No Known Allergies Allergy Verified 03/24/17 04:32 - Medications Medications: Current Medications Acetaminophen (Tylenol 325mg Tab) 650 mg PO Q6H PRN; Protocol PRN Reason: Pain, Mild (1-3) Last Admin: 03/23/17 23:15 Dose: 650 mg Aspirin (Ecotrin) 81 mg PO 0800 MOHINDER PRN Reason: Protocol Last Admin: 03/24/17 08:09 Dose: 81 mg Calcium Acetate (Phoslo) 667 mg PO 0730,1200,1700 MOHINDER PRN Reason: Protocol Last Admin: 03/24/17 12:53 Dose: 667 mg Cholecalciferol (Vitamin D) 2,000 intlu PO DAILY MOHINDER PRN Reason: Protocol Last Admin: 03/24/17 11:00 Dose: 2,000 intlu Clopidogrel Bisulfate (Plavix) 75 mg PO DAILY MOHINDER PRN Reason: Protocol Last Admin: 03/24/17 11:00 Dose: 75 mg Collagenase (Santyl) 0 gm TOP DAILY MOHINDER PRN Reason: Protocol Last Admin: 03/24/17 11:00 Dose: 1 applic Gabapentin (Neurontin) 300 mg PO DAILY MOHINDER PRN Reason: Protocol Last Admin: 03/24/17 11:00 Dose: 300 mg Guaifenesin/Codeine Phosphate (Robitussin W/Codeine) 5 ml PO Q4H PRN; Protocol PRN Reason: Cough and congestion Last Admin: 03/23/17 23:14 Dose: 5 ml Cefepime HCl (Maxipime 1gm) 1 gm in 100 mls @ 100 mls/hr IVPB 0600 MOHINDER PRN Reason: Protocol Stop: 04/13/17 06:01 Last Admin: 03/24/17 05:16 Dose: 100 mls/hr Insulin Human Regular (Humulin R High) 0 units SC ACHS MOHINDER PRN Reason: Protocol Last Admin: 03/24/17 12:30 Dose: 7 units Lactic Acid (Lac-Hydrin 12% Lotion (225 G)) 0 gm EXT DAILY MOHINDER PRN Reason: Protocol Last Admin: 03/24/17 11:00 Dose: 1 applic Lactulose (Enulose) 20 gm PO DAILY MOHINDER PRN Reason: Protocol Last Admin: 03/24/17 11:06 Dose: Not Given Levothyroxine Sodium (Synthroid) 100 mcg PO 0600 MOHINDER PRN Reason: Protocol Last Admin: 03/24/17 05:22 Dose: 100 mcg Metoprolol Succinate (Toprol Xl) 50 mg PO 0800 MOHINDER PRN Reason: Protocol Last Admin: 03/24/17 08:09 Dose: 50 mg Mupirocin (Bactroban Ointment) 0 gm TOP BID MOHINDER PRN Reason: Protocol Last Admin: 03/24/17 11:00 Dose: 1 unit Nitroglycerin (Nitro-Bid 2% Oint) 1 ea TOP 0600,1200,1800,0000 MOHINDER PRN Reason: Protocol Last Admin: 03/24/17 12:53 Dose: 1 ea Pantoprazole Sodium (Protonix Ec Tab) 40 mg PO 0630 MOHINDER PRN Reason: Protocol Last Admin: 03/24/17 06:40 Dose: 40 mg Ramipril (Altace) 1.25 mg PO DAILY MOHINDER PRN Reason: Protocol Last Admin: 03/24/17 11:00 Dose: Not Given Silver Sulfadiazine (Silvadene 1% 25 Gm) 0 gm TP BID MOHINDER PRN Reason: Protocol Last Admin: 03/24/17 11:00 Dose: 1 gm Zolpidem Tartrate (Ambien) 5 mg PO HS PRN; Protocol PRN Reason: Insomnia Last Admin: 03/23/17 23:14 Dose: 5 mg Physical Exam - Constitutional Appears: Well, Non-toxic, No Acute Distress - Extremities Exam Additional comments: VASC: DP and PT pulses palpable 2/4. CFT <3 seconds to all digits. Temperature gradient warm to warm b/l. No edema noted b/l. NEURO: Epicritic and protective sensation grossly diminished b/l. DERM: Ulceration noted to lateral aspect of left 4th digit measuring approximately 1 x 1 x 0.2 cm - wound base is 100% fibrous with slough. No granulation tissue noted, no active drainage, no undermining, no tunneling, no odor, no streaking, or increased calor noted. (+)probe to bone. Increased chronic erythema noted to b/l LE ORTHO: Mild tenderness upon ROM of left 4th digit and upon palpation of ulceration. No POP to b/l calves - Neurological Exam Neurological exam: Alert, Oriented x3 - Psychiatric Exam Psychiatric exam: Normal Affect, Normal Mood Results - Vital Signs Recent Vital Signs: Last Vital Signs Temp 97.9 F 03/24/17 06:00 Pulse 65 03/24/17 13:31 Resp 18 03/24/17 06:00 BP 127/58 L 03/24/17 11:00 Pulse Ox 93 L 03/24/17 13:31 - Labs Result Diagrams: 03/23/17 13:50 03/23/17 13:50 Labs: Laboratory Results - last 24 hr 03/23/17 03/23/17 03/23/17 13:50 13:50 18:24 WBC 7.6 D RBC 2.85 L Hgb 9.2 L Hct 26.8 L MCV 94.0 MCH 32.3 MCHC 34.3 RDW 14.3 Plt Count 93 L MPV 12.2 H Gran % 74.5 H Lymph % (Auto) 12.0 L [place] % (Auto) 10.3 H Eos % (Auto) 2.4 Baso % (Auto) 0.8 Gran # 5.67 Lymph # 0.9 L [place] # 0.8 H Eos # 0.2 Baso # 0.06 Sodium 135 Potassium 4.3 Chloride 99 Carbon Dioxide 26 Anion Gap 14 BUN 49 H Creatinine 3.6 H Est GFR ( Amer) 20 Est GFR (Non-Af Amer) 17 POC Glucose (mg/dL) 127 H Random Glucose 270 H Calcium 8.6 Phosphorus 3.2 Magnesium 1.9 Total Bilirubin 1.5 H AST 70 H ALT 44 Alkaline Phosphatase 169 H Total Protein 6.7 Albumin 3.1 Globulin 3.6 Albumin/Globulin Ratio 0.8 L 03/23/17 03/24/17 03/24/17 22:05 05:31 11:07 WBC RBC Hgb Hct MCV MCH MCHC RDW Plt Count MPV Gran % Lymph % (Auto) [place] % (Auto) Eos % (Auto) Baso % (Auto) Gran # Lymph # [place] # Eos # Baso # Sodium Potassium Chloride Carbon Dioxide Anion Gap BUN Creatinine Est GFR ( Amer) Est GFR (Non-Af Amer) POC Glucose (mg/dL) 284 H 192 H 290 H Random Glucose Calcium Phosphorus Magnesium Total Bilirubin AST ALT Alkaline Phosphatase Total Protein Albumin Globulin Albumin/Globulin Ratio Assessment & Plan - Assessment and Plan (Free Text) Assessment: 72 y.o male with PMH of CHF, HTN, HLD, DM, PVD, CKD stage IV, AFib s/p ablation is seen and evaluated at bedside ulceration to left fourth digit with underlying OM Plan: Patient seen and evaluated at bedside Plan discussed with attending Dr. Abbasi Afebrile Left foot xray 03/17: No overt radiographic signs of OM at fourth digit. MRI recommended Left foot MRI 03/20: Marrow edema in the fourth proximal and middle phalanx consistent with osteomyelitis Continue abx Wound dressed with Santyl, optifoam Patient's legs lathered with lac-hydrin lotion No plan for surgical intervention at this time Podiatry will continue to follow while patient in house - Date & Time Date: 03/24/17 Time: 14:03
--- NOTE | 2017-03-24 14:39 | CP.PCM.PN ---
Subjective - Date & Time of Evaluation Date of Evaluation: 03/24/17 Time of Evaluation: 12:20 - Subjective Subjective: Comfortable, no fevers, no pain in the left foot, not in distress. Objective - Vital Signs/Intake and Output Vital Signs (last 24 hours): Temp Pulse Resp BP Pulse Ox 97.4 F L 70 20 151/71 H 92 L 03/23/17 10:00 03/23/17 10:00 03/23/17 10:00 03/23/17 10:13 03/23/17 10:00 Intake and Output: 03/23/17 03/24/17 18:59 06:59 Output Total 300 Balance -300 - Medications Medications: Current Medications Acetaminophen (Tylenol 325mg Tab) 650 mg PO Q6H PRN; Protocol PRN Reason: Pain, Mild (1-3) Last Admin: 03/23/17 23:15 Dose: 650 mg Aspirin (Ecotrin) 81 mg PO 0800 MOHINDER PRN Reason: Protocol Last Admin: 03/23/17 08:53 Dose: 81 mg Calcium Acetate (Phoslo) 667 mg PO 0730,1200,1700 MOHINDER PRN Reason: Protocol Last Admin: 03/23/17 18:34 Dose: Not Given Cholecalciferol (Vitamin D) 2,000 intlu PO DAILY MOHINDER PRN Reason: Protocol Last Admin: 03/23/17 10:16 Dose: 2,000 intlu Clopidogrel Bisulfate (Plavix) 75 mg PO DAILY MOHINDER PRN Reason: Protocol Last Admin: 03/23/17 10:15 Dose: 75 mg Collagenase (Santyl) 0 gm TOP DAILY MOHINDER PRN Reason: Protocol Last Admin: 03/23/17 10:15 Dose: 1 applic Gabapentin (Neurontin) 300 mg PO DAILY MOHINDER PRN Reason: Protocol Last Admin: 03/23/17 10:15 Dose: 300 mg Guaifenesin/Codeine Phosphate (Robitussin W/Codeine) 5 ml PO Q4H PRN; Protocol PRN Reason: Cough and congestion Last Admin: 03/23/17 23:14 Dose: 5 ml Cefepime HCl (Maxipime 1gm) 1 gm in 100 mls @ 100 mls/hr IVPB 0600 MOHINDER PRN Reason: Protocol Stop: 04/13/17 06:01 Last Admin: 03/24/17 05:16 Dose: 100 mls/hr Insulin Human Regular (Humulin R High) 0 units SC ACHS MOHINDER PRN Reason: Protocol Last Admin: 03/24/17 06:47 Dose: 2 units Lactic Acid (Lac-Hydrin 12% Lotion (225 G)) 0 gm EXT DAILY MOHINDER PRN Reason: Protocol Last Admin: 03/23/17 10:14 Dose: 1 applic Lactulose (Enulose) 20 gm PO DAILY MOHINDER PRN Reason: Protocol Last Admin: 03/23/17 10:14 Dose: 20 gm Levothyroxine Sodium (Synthroid) 100 mcg PO 0600 MOHINDER PRN Reason: Protocol Last Admin: 03/24/17 05:22 Dose: 100 mcg Metoprolol Succinate (Toprol Xl) 50 mg PO 0800 MOHINDER PRN Reason: Protocol Last Admin: 03/23/17 08:53 Dose: 50 mg Mupirocin (Bactroban Ointment) 0 gm TOP BID MOHINDER PRN Reason: Protocol Last Admin: 03/23/17 18:26 Dose: Not Given Nitroglycerin (Nitro-Bid 2% Oint) 1 ea TOP 0600,1200,1800,0000 MOHINDER PRN Reason: Protocol Last Admin: 03/24/17 05:19 Dose: 1 ea Pantoprazole Sodium (Protonix Ec Tab) 40 mg PO 0630 MOHINDER PRN Reason: Protocol Last Admin: 03/24/17 06:40 Dose: 40 mg Ramipril (Altace) 1.25 mg PO DAILY MOHINDER PRN Reason: Protocol Last Admin: 03/23/17 10:13 Dose: 1.25 mg Silver Sulfadiazine (Silvadene 1% 25 Gm) 0 gm TP BID MOHINDER PRN Reason: Protocol Last Admin: 03/23/17 18:26 Dose: Not Given Zolpidem Tartrate (Ambien) 5 mg PO HS PRN; Protocol PRN Reason: Insomnia Last Admin: 03/23/17 23:14 Dose: 5 mg - Labs Labs: 03/23/17 13:50 03/23/17 13:50 - Constitutional Appears: Non-toxic - Head Exam Head Exam: NORMAL INSPECTION - ENT Exam ENT Exam: Mucous Membranes Moist - Neck Exam Neck Exam: absent: Meningismus - Respiratory Exam Respiratory Exam: Decreased Breath Sounds - Cardiovascular Exam Cardiovascular Exam: +S1, +S2 - GI/Abdominal Exam GI & Abdominal Exam: Soft. absent: Tenderness - Extremities Exam Additional comments: left foot with dressings in place Assessment and Plan - Assessment and Plan (Free Text) Plan: Assessment left foot cellulitis with probable early osteomyelitis of the 4th digit middle and proximal phalanges in a patient with DM and peripheral vascular disease, growing Pseudomonas transudative ascites S/P paracentesis without evidence of infection CAD S/P PCI yesterday obesity with BMI 31 chronic liver disease history of colonic polyps atrial fibrillation COPD HTN chronic renal failure DM peripheral vascular disease asbestosis Plan continue cefepime to complete at least another 2-3 weeks of antibiotics (has had 5 weeks of antibiotics already but since the CRP is still elevated, may need to prolong for another 3-4 weeks), with weekly ESR, CRP, CBC, CMP while on antibiotics; Pseudomonas was sensitive to Cipro but patient has prolonged QTc on EKG and we would not recommend use of Cipro CRP still >15 as of 03/22/2017
--- NOTE | 2017-03-24 17:20 | CP.PCM.PN ---
Subjective - Date & Time of Evaluation Date of Evaluation: 03/24/17 Time of Evaluation: 10:20 - Subjective Subjective: Seen and examined at the bedside earlier today. Patient is having formed BMs no reports of diarrhea or any overt GI bleed. Patient currently refusing lactulose since he is having BMs, explained to patient that this is to prevent hepatic encephalopathy. at bedside. No new complaints. Patient states he is feel feels better today. Objective - Vital Signs/Intake and Output Vital Signs (last 24 hours): Temp Pulse Resp BP Pulse Ox 98.2 F 65 18 127/58 L 93 L 03/24/17 10:00 03/24/17 13:31 03/24/17 10:00 03/24/17 11:00 03/24/17 13:31 - Medications Medications: Current Medications Acetaminophen (Tylenol 325mg Tab) 650 mg PO Q6H PRN; Protocol PRN Reason: Pain, Mild (1-3) Last Admin: 03/23/17 23:15 Dose: 650 mg Aspirin (Ecotrin) 81 mg PO 0800 MOHINDER PRN Reason: Protocol Last Admin: 03/24/17 08:09 Dose: 81 mg Calcium Acetate (Phoslo) 667 mg PO 0730,1200,1700 MOHINDER PRN Reason: Protocol Last Admin: 03/24/17 12:53 Dose: 667 mg Cholecalciferol (Vitamin D) 2,000 intlu PO DAILY MOHINDER PRN Reason: Protocol Last Admin: 03/24/17 11:00 Dose: 2,000 intlu Clopidogrel Bisulfate (Plavix) 75 mg PO DAILY MOHINDER PRN Reason: Protocol Last Admin: 03/24/17 11:00 Dose: 75 mg Collagenase (Santyl) 0 gm TOP DAILY MOHINDER PRN Reason: Protocol Last Admin: 03/24/17 11:00 Dose: 1 applic Gabapentin (Neurontin) 300 mg PO DAILY MOHINDER PRN Reason: Protocol Last Admin: 03/24/17 11:00 Dose: 300 mg Guaifenesin/Codeine Phosphate (Robitussin W/Codeine) 5 ml PO Q4H PRN; Protocol PRN Reason: Cough and congestion Last Admin: 03/23/17 23:14 Dose: 5 ml Cefepime HCl (Maxipime 1gm) 1 gm in 100 mls @ 100 mls/hr IVPB 0600 MOHINDER PRN Reason: Protocol Stop: 04/13/17 06:01 Last Admin: 03/24/17 05:16 Dose: 100 mls/hr Insulin Human Regular (Humulin R High) 0 units SC ACHS MOHINDER PRN Reason: Protocol Last Admin: 03/24/17 12:30 Dose: 7 units Lactic Acid (Lac-Hydrin 12% Lotion (225 G)) 0 gm EXT DAILY MOHINDER PRN Reason: Protocol Last Admin: 03/24/17 11:00 Dose: 1 applic Lactulose (Enulose) 20 gm PO DAILY MOHINDER PRN Reason: Protocol Last Admin: 03/24/17 11:06 Dose: Not Given Levothyroxine Sodium (Synthroid) 100 mcg PO 0600 MOHINDER PRN Reason: Protocol Last Admin: 03/24/17 05:22 Dose: 100 mcg Metoprolol Succinate (Toprol Xl) 50 mg PO 0800 MOHINDER PRN Reason: Protocol Last Admin: 03/24/17 08:09 Dose: 50 mg Mupirocin (Bactroban Ointment) 0 gm TOP BID MOHINDER PRN Reason: Protocol Last Admin: 03/24/17 11:00 Dose: 1 unit Nitroglycerin (Nitro-Bid 2% Oint) 1 ea TOP 0600,1200,1800,0000 MOHINDER PRN Reason: Protocol Last Admin: 03/24/17 12:53 Dose: 1 ea Pantoprazole Sodium (Protonix Ec Tab) 40 mg PO 0630 MOHINDER PRN Reason: Protocol Last Admin: 03/24/17 06:40 Dose: 40 mg Ramipril (Altace) 1.25 mg PO DAILY MOHINDER PRN Reason: Protocol Last Admin: 03/24/17 11:00 Dose: Not Given Silver Sulfadiazine (Silvadene 1% 25 Gm) 0 gm TP BID MOHINDER PRN Reason: Protocol Last Admin: 03/24/17 11:00 Dose: 1 gm Zolpidem Tartrate (Ambien) 5 mg PO HS PRN; Protocol PRN Reason: Insomnia Last Admin: 03/23/17 23:14 Dose: 5 mg - Labs Labs: 03/23/17 13:50 03/23/17 13:50 - Constitutional Appears: No Acute Distress - Eye Exam Eye Exam: Normal appearance. absent: Scleral icterus - ENT Exam ENT Exam: Mucous Membranes Moist - Respiratory Exam Respiratory Exam: NORMAL BREATHING PATTERN. absent: Respiratory Distress - Cardiovascular Exam Cardiovascular Exam: +S1, +S2 - GI/Abdominal Exam GI & Abdominal Exam: Soft, Normal Bowel Sounds. absent: Guarding, Tenderness, Rebound - Extremities Exam Extremities Exam: absent: Calf Tenderness - Neurological Exam Neurological Exam: Alert, Awake, Oriented x3 - Skin Skin Exam: Dry, Warm Assessment and Plan - Assessment and Plan (Free Text) Assessment: Assessment: Decompensated liver cirrhosis with refractory ascites, s/p paracentesis Triple vessel Disease, s/p cardaic cath w/ PTCA and drug eluding stent End-stage renal disease on dialysis History of hepatic encephalopathy PAD DM Plan: Continue lactulose Check ammonia level in a.m. Continue GI prophylaxis Continue DVT prophylaxis On Plavix and Aspirin On IV antibiotics Diet as tolerated As per renal Seen and discussed with Dr. Mejia.
--- NOTE | 2017-03-24 17:56 | PN ---
DATE: SUBJECTIVE: The patient is seen lying in bed. He is awake, he is alert. He appears a little frustrated and depressed. He does not want to take the lactulose anymore, but the GI has advised him to continue lactulose. PHYSICAL EXAMINATION: GENERAL: Obese, elderly male, lying in bed. VITAL SIGNS: Blood pressure 127/58, heart rate 65, respiratory rate 18, and temperature 98.2. HEENT: Normocephalic, atraumatic. NECK: Supple, no JVD. LUNGS: Bilateral equal air entry, bilateral equal expansion, no rales. CARDIAC: S1 and S2, regular rate and rhythm, no murmur, no rub. ABDOMEN: Obese, distended, soft, nontender, bowel sounds present. EXTREMITIES: 1+ pitting edema of the lower extremities. INTAKE AND OUTPUT: Not charted. LABORATORY DATA: No new labs. CURRENT MEDICATIONS: Bactroban, Ecotrin, Enulose, insulin, Maxipime, gabapentin, PhosLo, Plavix, Protonix 40, Silvadene, Synthroid, Toprol-XL 50, Tylenol, and vitamin D. ASSESSMENT: 1. Cirrhosis of the liver. 2. End-stage renal disease now on dialysis. 3. Coronary artery disease, status post percutaneous transluminal coronary angioplasty and stents, requires another procedure on 04/21/2017. 4. Noninsulin-dependent diabetes mellitus. 5. Hypertension. 6. Peripheral vascular disease. 7. Foot ulcer. PLAN: 1. Continue current management. 2. Dialysis tomorrow. 3. Outpatient dialysis at [facility] in [place]. 4. Physical therapy. 5. Permanent access as outpatient. Selina Garcia MD
[2017-03-24] MEDS: guaiFENesin-Codeine 100-10mg/5ml Syrup (5 ml) UD PO PRN (22:08)
[2017-03-25] MEDS: Nitroglycerin 2% Ointment Foilpak UD TOP SCH ×4 (02:05→22:55)
--- NOTE | 2017-03-25 02:22 | PN ---
DATE: 03/24/2017 SUBJECTIVE: The patient was seen this morning in Transitional Care Unit at [facility] with his at the bedside. He is sitting in bed, much more comfortable after several rounds of dialysis with marked decrease in his leg edema as well as his ascites. He has also undergone a recent paracentesis causing reduction in ascites. The patient is upset and that he was told he needs to take the lactulose because of raised ammonia level. This causes tremendous diarrhea and therefore he does not want to take it; however, now on dialysis; I explained to him that his ammonia levels may come down just from dialysis alone making the need for lactulose a little bit less pertinent. He described relief with this news. I will run it past GI ____ I will check an ammonia levels in the morning and go from there. In the meantime, we will continue physical therapy and activities as well as dialysis. Berto Reyes MD
[2017-03-25] MEDS: Cefepime 1gm in NS 100ml 1 GM/100 ML BAG IVPB SCH (05:39)
[2017-03-25] MEDS: Levothyroxine 100 MCG TAB PO SCH (05:39)
[2017-03-25] MEDS: Pantoprazole 40 mg EC Tab PO SCH (05:39)
[2017-03-25] MEDS: Insulin Reg-HIGH-Coverage SC SCH ×4 (06:41→22:54)
[2017-03-25 07:19] LABS: BASO # 0.04 K/mm3 (0.0-2.0); BASO % 0.6 % (0.0-3.0); EOS # 0.2 (0.0-0.7); EOS % 2.8 % (1.5-5.0); GRAN # 4.45 (1.4-6.5); HEMOGLOBIN 8.4 g/dL (14.0-18.0); LYMPH # 1.2 (1.2-3.4); LYMPH % 18.4 % (22.0-35.0); MEAN CELL VOLUME 94.2 fl (80.0-105.0); MEAN CORPUSCULAR HEMOGLOBIN 32.7 pg (25.0-35.0); MEAN CORPUSCULAR HGB CONC 34.7 g/dl (31.0-37.0); MEAN PLATELET VOLUME 11.4 fl (7.0-11.0); MONO # 0.8 (0.1-0.6); MONO % 12.2 % (1.0-6.0); RBC 2.57 10^6/uL (3.5-6.1); RED CELL DISTRIBUTION WIDTH 14.4 % (11.5-14.5); WHITE BLOOD COUNT 6.7 10^3/ul (4.5-11.0)
[2017-03-25 07:32] LABS: ALB/GLOB RATIO 0.8 (1.1-1.8); ALBUMIN 2.7 g/dL (3.0-4.8); CALCIUM 8.3 mg/dL (8.4-10.5)
[2017-03-25] MEDS: Metoprolol Succinate 50 mg XL Tab PO SCH (08:13)
[2017-03-25] MEDS: Collagenase 250 Units/gm Ointment(30 gm) TOP SCH (10:20)
[2017-03-25] MEDS: Ammonium Lactate 12% Lotion (225 g) EXT SCH (10:20)
[2017-03-25] MEDS: Cholecalciferol 1,000 INTLU TAB PO SCH (10:21)
[2017-03-25] MEDS: Silver Sulfadiazine 1% Cream (25 gm) TP SCH (10:21)
--- NOTE | 2017-03-25 11:06 | CP.PCM.PN ---
<Darline Hannah - Last Filed: 03/25/17 11:03> Subjective - Date & Time of Evaluation Date of Evaluation: 03/25/17 Time of Evaluation: 09:15 - Subjective Subjective: Seen and examined at the bedside in TCU, family at bedside. Patient had a bed to chair having formed stool, no reports of melena or bright red blood per rectum. Ammonia level this morning is 14, patient still reluctant to take lactulose. Denies nausea, vomiting, or abdominal pain. No shortness of breath or chest pain. Objective - Vital Signs/Intake and Output Vital Signs (last 24 hours): Temp Pulse Resp BP Pulse Ox 98.5 F 61 16 129/60 94 L 03/25/17 06:00 03/25/17 08:13 03/25/17 06:00 03/25/17 10:11 03/25/17 06:00 Intake and Output: 03/25/17 03/25/17 06:59 18:59 Intake Total 500 Output Total 600 Balance -100 - Medications Medications: Current Medications Acetaminophen (Tylenol 325mg Tab) 650 mg PO Q6H PRN; Protocol PRN Reason: Pain, Mild (1-3) Last Admin: 03/23/17 23:15 Dose: 650 mg Aspirin (Ecotrin) 81 mg PO 0800 MOHINDER PRN Reason: Protocol Last Admin: 03/25/17 08:13 Dose: 81 mg Calcium Acetate (Phoslo) 667 mg PO 0730,1200,1700 MOHINDER PRN Reason: Protocol Last Admin: 03/25/17 08:13 Dose: 667 mg Cholecalciferol (Vitamin D) 2,000 intlu PO DAILY MOHINDER PRN Reason: Protocol Last Admin: 03/25/17 10:21 Dose: 2,000 intlu Clopidogrel Bisulfate (Plavix) 75 mg PO DAILY MOHINDER PRN Reason: Protocol Last Admin: 03/25/17 10:20 Dose: 75 mg Collagenase (Santyl) 0 gm TOP DAILY MOHINDER PRN Reason: Protocol Last Admin: 03/25/17 10:20 Dose: 1 applic Gabapentin (Neurontin) 300 mg PO DAILY MOHINDER PRN Reason: Protocol Last Admin: 03/25/17 10:11 Dose: 300 mg Guaifenesin/Codeine Phosphate (Robitussin W/Codeine) 5 ml PO Q4H PRN; Protocol PRN Reason: Cough and congestion Last Admin: 03/24/17 22:08 Dose: 5 ml Cefepime HCl (Maxipime 1gm) 1 gm in 100 mls @ 100 mls/hr IVPB 0600 MOHINDER PRN Reason: Protocol Stop: 04/13/17 06:01 Last Admin: 03/25/17 05:39 Dose: 100 mls/hr Insulin Human Regular (Humulin R High) 0 units SC ACHS MOHINDER PRN Reason: Protocol Last Admin: 03/25/17 06:41 Dose: 2 units Lactic Acid (Lac-Hydrin 12% Lotion (225 G)) 0 gm EXT DAILY MOHINDER PRN Reason: Protocol Last Admin: 03/25/17 10:20 Dose: 1 applic Lactulose (Enulose) 20 gm PO DAILY MOHINDER PRN Reason: Protocol Last Admin: 03/25/17 10:20 Dose: Not Given Lactulose (Enulose) 10 gm PO DAILY MOHINDER Levothyroxine Sodium (Synthroid) 100 mcg PO 0600 MOHINDER PRN Reason: Protocol Last Admin: 03/25/17 05:39 Dose: 100 mcg Metoprolol Succinate (Toprol Xl) 50 mg PO 0800 MOHINDER PRN Reason: Protocol Last Admin: 03/25/17 08:13 Dose: Not Given Mupirocin (Bactroban Ointment) 0 gm TOP BID MOHINDER PRN Reason: Protocol Last Admin: 03/25/17 10:11 Dose: 1 unit Nitroglycerin (Nitro-Bid 2% Oint) 1 ea TOP 0600,1200,1800,0000 MOHINDER PRN Reason: Protocol Last Admin: 03/25/17 05:56 Dose: Not Given Pantoprazole Sodium (Protonix Ec Tab) 40 mg PO 0630 MOHINDER PRN Reason: Protocol Last Admin: 03/25/17 05:39 Dose: 40 mg Ramipril (Altace) 1.25 mg PO DAILY MOHINDER PRN Reason: Protocol Last Admin: 03/25/17 10:11 Dose: 1.25 mg Silver Sulfadiazine (Silvadene 1% 25 Gm) 0 gm TP BID MOHINDER PRN Reason: Protocol Last Admin: 03/25/17 10:21 Dose: 1 gm Zolpidem Tartrate (Ambien) 5 mg PO HS PRN; Protocol PRN Reason: Insomnia Last Admin: 03/24/17 22:05 Dose: 5 mg - Labs Labs: 03/25/17 06:45 03/25/17 06:45 - Constitutional Appears: No Acute Distress - Eye Exam Eye Exam: Normal appearance. absent: Scleral icterus - ENT Exam ENT Exam: Mucous Membranes Moist - Respiratory Exam Respiratory Exam: NORMAL BREATHING PATTERN. absent: Respiratory Distress - Cardiovascular Exam Cardiovascular Exam: +S1, +S2 - GI/Abdominal Exam GI & Abdominal Exam: Distended, Soft, Normal Bowel Sounds. absent: Guarding, Tenderness, Rebound - Extremities Exam Extremities Exam: absent: Calf Tenderness - Neurological Exam Neurological Exam: Alert, Awake, Oriented x3 Assessment and Plan - Assessment and Plan (Free Text) Assessment: Assessment: Decompensated liver cirrhosis with refractory ascites, s/p paracentesis Triple vessel Disease, s/p cardaic cath w/ PTCA and drug eluding stent End-stage renal disease on dialysis History of hepatic encephalopathy PAD DM Plan: Decrease dose of lactulose from 20 gm to 10 gm daily, discuss with pt and family , they were agreeable to have dose cut down. Disscuss that depsite ammonia level is normal should continue to prevent hepatic encephalopathy. Continue GI prophylaxis Continue DVT prophylaxis On Plavix and Aspirin On IV antibiotics Diet as tolerated As per renal Seen and discussed with Dr. Mejia. <Delbert Mejia V - Last Filed: 03/25/17 19:46> Objective - Vital Signs/Intake and Output Vital Signs (last 24 hours): Temp Pulse Resp BP Pulse Ox 97.5 F L 62 18 129/60 97 03/25/17 10:00 03/25/17 13:51 03/25/17 10:00 03/25/17 10:11 03/25/17 13:51 - Medications Medications: Current Medications Acetaminophen (Tylenol 325mg Tab) 650 mg PO Q6H PRN; Protocol PRN Reason: Pain, Mild (1-3) Last Admin: 03/23/17 23:15 Dose: 650 mg Aspirin (Ecotrin) 81 mg PO 0800 [facility] PRN Reason: Protocol Last Admin: 03/25/17 08:13 Dose: 81 mg Calcium Acetate (Phoslo) 667 mg PO 0730,1200,1700 MOHINDER PRN Reason: Protocol Last Admin: 03/25/17 17:56 Dose: Not Given Cholecalciferol (Vitamin D) 2,000 intlu PO DAILY MOHINDER PRN Reason: Protocol Last Admin: 03/25/17 10:21 Dose: 2,000 intlu Clopidogrel Bisulfate (Plavix) 75 mg PO DAILY MOHINDER PRN Reason: Protocol Last Admin: 03/25/17 10:20 Dose: 75 mg Collagenase (Santyl) 0 gm TOP DAILY MOHINDER PRN Reason: Protocol Last Admin: 03/25/17 10:20 Dose: 1 applic Gabapentin (Neurontin) 300 mg PO DAILY MOHINDER PRN Reason: Protocol Last Admin: 03/25/17 10:11 Dose: 300 mg Guaifenesin/Codeine Phosphate (Robitussin W/Codeine) 5 ml PO Q4H PRN; Protocol PRN Reason: Cough and congestion Last Admin: 03/24/17 22:08 Dose: 5 ml Cefepime HCl (Maxipime 1gm) 1 gm in 100 mls @ 100 mls/hr IVPB 0600 MOHINDER PRN Reason: Protocol Stop: 04/13/17 06:01 Last Admin: 03/25/17 05:39 Dose: 100 mls/hr Insulin Human Regular (Humulin R High) 0 units SC ACHS MOHINDER PRN Reason: Protocol Last Admin: 03/25/17 17:30 Dose: Not Given Lactic Acid (Lac-Hydrin 12% Lotion (225 G)) 0 gm EXT DAILY MOHINDER PRN Reason: Protocol Last Admin: 03/25/17 10:20 Dose: 1 applic Lactulose (Enulose) 20 gm PO DAILY MOHINDER PRN Reason: Protocol Last Admin: 03/25/17 10:20 Dose: Not Given Lactulose (Enulose) 10 gm PO DAILY MOHINDER Levothyroxine Sodium (Synthroid) 100 mcg PO 0600 MOHINDER PRN Reason: Protocol Last Admin: 03/25/17 05:39 Dose: 100 mcg Metoprolol Succinate (Toprol Xl) 50 mg PO 0800 MOHINDER PRN Reason: Protocol Last Admin: 03/25/17 08:13 Dose: Not Given Mupirocin (Bactroban Ointment) 0 gm TOP BID MOHINDER PRN Reason: Protocol Last Admin: 03/25/17 10:11 Dose: 1 unit Nitroglycerin (Nitro-Bid 2% Oint) 1 ea TOP 0600,1200,1800,0000 MOHINDER PRN Reason: Protocol Last Admin: 03/25/17 11:52 Dose: Not Given Pantoprazole Sodium (Protonix Ec Tab) 40 mg PO 0630 MOHINDER PRN Reason: Protocol Last Admin: 03/25/17 05:39 Dose: 40 mg Ramipril (Altace) 1.25 mg PO DAILY MOHINDER PRN Reason: Protocol Last Admin: 03/25/17 10:11 Dose: 1.25 mg Silver Sulfadiazine (Silvadene 1% 25 Gm) 0 gm TP BID MOHINDER PRN Reason: Protocol Last Admin: 03/25/17 10:21 Dose: 1 gm Zolpidem Tartrate (Ambien) 5 mg PO HS PRN; Protocol PRN Reason: Insomnia Last Admin: 03/24/17 22:05 Dose: 5 mg - Labs Labs: 03/25/17 06:45 03/25/17 06:45 Attending/Attestation - Attestation I have personally seen and examined this patient.: Yes I have fully participated in the care of the patient.: Yes I have reviewed all pertinent clinical information, including history, physical exam and plan: Yes Notes (Text): This is an addendum to GI progress report dictated by Darline Hannah APN.The patient was seen and examined earlier. Medical records, lab studies, imagings were reviewed. Last 24 hours events reviewed. Agreed with the above treatment plan as outlined in Darline Hannah APN's notes the with the addition of the following patient had dialysis today Discussed with the patient's family about the option of lactulose 15 mL daily and at present patient more alert oriented ammonia level significantly low 03/25/17 19:44
--- NOTE | 2017-03-25 14:04 | CP.PCM.PN ---
Subjective - Date & Time of Evaluation Date of Evaluation: 03/25/17 Time of Evaluation: 12:05 - Subjective Subjective: Comfortable, no fevers, not in distress. Objective - Vital Signs/Intake and Output Vital Signs (last 24 hours): Temp Pulse Resp BP Pulse Ox 98.5 F 61 16 95/42 L 94 L 03/25/17 06:00 03/25/17 06:00 03/25/17 06:00 03/25/17 06:00 03/25/17 06:00 Intake and Output: 03/24/17 03/25/17 18:59 06:59 Intake Total 500 Output Total 600 Balance -100 - Medications Medications: Current Medications Acetaminophen (Tylenol 325mg Tab) 650 mg PO Q6H PRN; Protocol PRN Reason: Pain, Mild (1-3) Last Admin: 03/23/17 23:15 Dose: 650 mg Aspirin (Ecotrin) 81 mg PO 0800 MOHINDER PRN Reason: Protocol Last Admin: 03/24/17 08:09 Dose: 81 mg Calcium Acetate (Phoslo) 667 mg PO 0730,1200,1700 MOHINDER PRN Reason: Protocol Last Admin: 03/24/17 17:31 Dose: 667 mg Cholecalciferol (Vitamin D) 2,000 intlu PO DAILY MOHINDER PRN Reason: Protocol Last Admin: 03/24/17 11:00 Dose: 2,000 intlu Clopidogrel Bisulfate (Plavix) 75 mg PO DAILY MOHINDER PRN Reason: Protocol Last Admin: 03/24/17 11:00 Dose: 75 mg Collagenase (Santyl) 0 gm TOP DAILY MOHINDER PRN Reason: Protocol Last Admin: 03/24/17 11:00 Dose: 1 applic Gabapentin (Neurontin) 300 mg PO DAILY MOHINDER PRN Reason: Protocol Last Admin: 03/24/17 11:00 Dose: 300 mg Guaifenesin/Codeine Phosphate (Robitussin W/Codeine) 5 ml PO Q4H PRN; Protocol PRN Reason: Cough and congestion Last Admin: 03/24/17 22:08 Dose: 5 ml Cefepime HCl (Maxipime 1gm) 1 gm in 100 mls @ 100 mls/hr IVPB 0600 MOHINDER PRN Reason: Protocol Stop: 04/13/17 06:01 Last Admin: 03/25/17 05:39 Dose: 100 mls/hr Insulin Human Regular (Humulin R High) 0 units SC ACHS MOHINDER PRN Reason: Protocol Last Admin: 03/25/17 06:41 Dose: 2 units Lactic Acid (Lac-Hydrin 12% Lotion (225 G)) 0 gm EXT DAILY MOHINDER PRN Reason: Protocol Last Admin: 03/24/17 11:00 Dose: 1 applic Lactulose (Enulose) 20 gm PO DAILY MOHINDER PRN Reason: Protocol Last Admin: 03/24/17 11:06 Dose: Not Given Levothyroxine Sodium (Synthroid) 100 mcg PO 0600 MOHINDER PRN Reason: Protocol Last Admin: 03/25/17 05:39 Dose: 100 mcg Metoprolol Succinate (Toprol Xl) 50 mg PO 0800 MOHINDER PRN Reason: Protocol Last Admin: 03/24/17 08:09 Dose: 50 mg Mupirocin (Bactroban Ointment) 0 gm TOP BID MOHINDER PRN Reason: Protocol Last Admin: 03/24/17 17:32 Dose: 1 unit Nitroglycerin (Nitro-Bid 2% Oint) 1 ea TOP 0600,1200,1800,0000 MOHINDER PRN Reason: Protocol Last Admin: 03/25/17 05:56 Dose: Not Given Pantoprazole Sodium (Protonix Ec Tab) 40 mg PO 0630 MOHINDER PRN Reason: Protocol Last Admin: 03/25/17 05:39 Dose: 40 mg Ramipril (Altace) 1.25 mg PO DAILY MOHINDER PRN Reason: Protocol Last Admin: 03/24/17 11:00 Dose: Not Given Silver Sulfadiazine (Silvadene 1% 25 Gm) 0 gm TP BID MOHINDER PRN Reason: Protocol Last Admin: 03/24/17 17:35 Dose: Not Given Zolpidem Tartrate (Ambien) 5 mg PO HS PRN; Protocol PRN Reason: Insomnia Last Admin: 03/24/17 22:05 Dose: 5 mg - Labs Labs: 03/23/17 13:50 03/23/17 13:50 - Constitutional Appears: Non-toxic, Chronically Ill - Head Exam Head Exam: NORMAL INSPECTION - ENT Exam ENT Exam: Mucous Membranes Moist - Neck Exam Neck Exam: absent: Meningismus - Respiratory Exam Respiratory Exam: Decreased Breath Sounds - Cardiovascular Exam Cardiovascular Exam: +S1, +S2 - GI/Abdominal Exam GI & Abdominal Exam: Soft. absent: Tenderness - Extremities Exam Additional comments: left foot with dressings in place Assessment and Plan - Assessment and Plan (Free Text) Plan: Assessment left foot cellulitis with probable early osteomyelitis of the 4th digit middle and proximal phalanges in a patient with DM and peripheral vascular disease, growing Pseudomonas transudative ascites S/P paracentesis without evidence of infection CAD S/P PCI yesterday obesity with BMI 31 chronic liver disease history of colonic polyps atrial fibrillation COPD HTN chronic renal failure DM peripheral vascular disease asbestosis Plan continue cefepime to complete at least another 2-3 weeks of antibiotics (has had 5 weeks of antibiotics already but since the CRP is still elevated, may need to prolong for another 3-4 weeks), with weekly ESR, CRP, CBC, CMP while on antibiotics; Pseudomonas was sensitive to Cipro but patient has prolonged QTc on EKG and we would not recommend use of Cipro CRP still >15 as of 03/22/2017
--- NOTE | 2017-03-25 19:35 | PN ---
DATE: 03/25/2017 SUBJECTIVE: The patient is seen lying in bed. He is awake, he is alert, and he is comfortable. He denies any pain. He denies any shortness of breath. PHYSICAL EXAMINATION: GENERAL: Elderly male lying in bed. VITAL SIGNS: Blood pressure 129/60, heart rate 62, respiratory rate 18, and temperature 97.5. HEENT: Normocephalic, atraumatic. NECK: Supple, no JVD. LUNGS: Bilateral equal air entry, no rales. ABDOMEN: Obese, distended, soft, nontender, and bowel sounds present. EXTREMITIES: No lower extremity edema. LABORATORY DATA: WBC 6.7, hemoglobin 8.4, hematocrit 24, and platelets 84. Sodium 136, potassium 4.0, chloride 99, CO2 of 28, BUN 34, creatinine 3.3, glucose 150, calcium 8.3, total bili 1.6, AST 53, ALT 37, and ammonia 14. MEDICATIONS: List reviewed. ASSESSMENT: 1. End-stage renal disease, dialysis Tuesday, Tuesday and Tuesday. 2. Yvs-sxibepc-cutqjwywf diabetes mellitus. 3. Hypertension. 4. Cirrhosis of the liver. 5. Peripheral vascular disease. PLAN: 1. Dialysis today. 2. Continue lactulose at a lower dose. 3. Continue current antihypertensives. 4. Monitor fingersticks. 5. Physical therapy. 6. Discharge planning. Selina Garcia MD
[2017-03-25] MEDS: guaiFENesin-Codeine 100-10mg/5ml Syrup (5 ml) UD PO PRN (21:41)
[2017-03-26] MEDS: Cefepime 1gm in NS 100ml 1 GM/100 ML BAG IVPB SCH (05:52)
[2017-03-26] MEDS: Pantoprazole 40 mg EC Tab PO SCH (05:54)
[2017-03-26] MEDS: Levothyroxine 100 MCG TAB PO SCH (05:54)
[2017-03-26] MEDS: Nitroglycerin 2% Ointment Foilpak UD TOP SCH ×4 (06:05→23:00)
[2017-03-26] MEDS: Insulin Reg-HIGH-Coverage SC SCH ×4 (06:48→22:11)
[2017-03-26] MEDS: Metoprolol Succinate 50 mg XL Tab PO SCH (08:16)
--- NOTE | 2017-03-26 09:47 | PN ---
DATE: SUBJECTIVE: The patient is currently seen sitting up in bed in the TCU, his is in the room. The patient has been tolerating dialysis well, his last dialysis was yesterday. There is some concern about the patient needing extended course of IV antibiotic therapy for treatment of his left toe osteomyelitis. MEDICATIONS: Medication list reviewed. The patient is currently on Altace, Ambien, mupirocin, Ecotrin, lactulose, insulin, Lac-Hydrin, Maxipime, Neurontin, Nitro-Bid ointment, PhosLo, Plavix, Protonix, Robitussin with Codeine p.r.n., Santyl, Silvadene, Synthroid, Toprol, Tylenol and vitamin D. OBJECTIVE: VITAL SIGNS: Blood pressure 91/47, temperature 98.1, respiratory rate 18 with a pulse of 64. HEENT: Normocephalic, atraumatic. Conjunctivae are pale. Sclerae are nonicteric. NECK: Supple. No neck vein distention. Positive chest wall dialysis PermCath. CHEST: Clear to auscultation and percussion. No rales, no rhonchi or wheezing. CARDIOVASCULAR: Shows a regular rate and rhythm without audible murmurs, rubs or gallops. ABDOMEN: Soft. Bowel sounds normal. Minimal distention. Mild ascites. No rebound, guarding or masses. EXTREMITIES: Show no lower extremity edema. He has a dressing over his left fourth toe. LABORATORY DATA AND IMAGING STUDIES: These are labs from yesterday. Predialysis, white blood cell count 6.7, hemoglobin 8.4, platelet count is 84,000. Chemistries: BUN 34, creatinine 3.3. Glucose 150. Electrolytes are normal. Calcium 8.3. Last phosphorus level was 3.2. Bilirubin 1.6. Mild elevation of alkaline phosphatase. Ammonia level is 14. ASSESSMENT: 1. Acute renal failure superimposed on chronic kidney disease stage IV/V. The patient currently now has end-stage renal disease and will continue on outpatient dialysis. He is tolerating dialysis well. The patient has plans to dialyze Tuesday, Tuesday, Tuesday at [facility] on [address] Currently, will be dialyzing with a PermCath as he remains on Plavix, status post stent placement. 2. Non-insulin dependent diabetes mellitus. Glucose control is improved. The patient continues on sliding insulin. 3. History of hypertension. Blood pressure is well-controlled. 4. History of cirrhosis with history of elevated ammonia levels. Last ammonia level was normal. Patient remains on lactulose. He is off Xifaxan. 5. Osteomyelitis of the left fourth toe. As per my discussion with the patient, it is quite possible to continue with another 3 weeks of antibiotic therapy. He does have a PICC line and he can receive his medication at home. 4. History of anemia. Hemoglobin remains low. The patient will continue Aranesp and iron therapy per protocol. 5. History of arteriosclerotic heart disease for the multivessel coronary artery disease. Status post percutaneous transluminal coronary angioplasty with stent x3 vessels. The patient will likely need to return for another two-vessel angioplasty and stent placement. He will remain on Plavix for the foreseeable future, likely outputs of 1 year. The patient will be followed closely by Cardiology. The patient continues on low-dose Altace and beta-berkley therapy. 6. History of hypothyroidism. The patient continues thyroid replacement therapy. 7. History of secondary hyperparathyroidism. Will check his phosphorus levels with dialysis on Tuesday03/28/2017. The patient continues on a renal diet and binder therapy. PLAN: 1. The patient will make a definite plan with Infectious Disease about the duration of antibiotic therapy. In all likelihood, he will be able to receive the antibiotic therapy at home IV through his PICC line. 2. The patient will continue rehabilitation in the TCU. He is apparently walking steps, so he should be able to walk steps when he gets home. 3. Continue Cardiology followup for followup angioplasty and stent placement. 4. Continue Tuesday, Tuesday, Tuesday dialysis. Patient plans to transfer over to the outpatient [facility] on [address] post discharge from the hospital. Manpreet Dalton MD
[2017-03-26] MEDS: Ammonium Lactate 12% Lotion (225 g) EXT SCH (10:55)
[2017-03-26] MEDS: Cholecalciferol 1,000 INTLU TAB PO SCH (10:57)
[2017-03-26] MEDS: Collagenase 250 Units/gm Ointment(30 gm) TOP SCH (10:57)
[2017-03-26] MEDS: Silver Sulfadiazine 1% Cream (25 gm) TP SCH ×2 (10:57→18:07)
--- NOTE | 2017-03-26 12:53 | CP.PCM.PN ---
Subjective - Date & Time of Evaluation Date of Evaluation: 03/26/17 Time of Evaluation: 12:52 - Subjective Subjective: Podiatry Progress Note - Dr. Abbasi 72 year old male patient PMHx CHF, HTN, HLD, DM, PVD, CKD Stage 4, afib s/p ablation seen and evaluated at bedside for left foot fourth digit ulceration. present at bedside. Patient AAO x 3 and NAD. Denies any acute overnight events. States that pain to left fourth toe is decreased today and denies any further pedal complaints at this time. Patient reports that he continues to do physical therapy, walking in the hallway. Denies N/V/F/D/C/SOB/D/posterior calf pain when squeezed. Objective - Vital Signs/Intake and Output Vital Signs (last 24 hours): Temp Pulse Resp BP Pulse Ox 98.1 F 64 18 114/54 L 97 03/26/17 06:00 03/26/17 08:16 03/26/17 06:00 03/26/17 10:54 03/26/17 06:00 Intake and Output: 03/26/17 03/26/17 06:59 18:59 Intake Total 840 Balance 840 - Medications Medications: Current Medications Acetaminophen (Tylenol 325mg Tab) 650 mg PO Q6H PRN; Protocol PRN Reason: Pain, Mild (1-3) Last Admin: 03/23/17 23:15 Dose: 650 mg Aspirin (Ecotrin) 81 mg PO 0800 MOHINDER PRN Reason: Protocol Last Admin: 03/26/17 08:15 Dose: 81 mg Calcium Acetate (Phoslo) 667 mg PO 0730,1200,1700 MOHINDER PRN Reason: Protocol Last Admin: 03/26/17 12:31 Dose: 667 mg Cholecalciferol (Vitamin D) 2,000 intlu PO DAILY MOHINDER PRN Reason: Protocol Last Admin: 03/26/17 10:57 Dose: 2,000 intlu Clopidogrel Bisulfate (Plavix) 75 mg PO DAILY MOHINDER PRN Reason: Protocol Last Admin: 03/26/17 10:56 Dose: 75 mg Collagenase (Santyl) 0 gm TOP DAILY MOHINDER PRN Reason: Protocol Last Admin: 03/26/17 10:57 Dose: 1 applic Gabapentin (Neurontin) 300 mg PO DAILY MOHINDER PRN Reason: Protocol Last Admin: 03/26/17 10:56 Dose: 300 mg Guaifenesin/Codeine Phosphate (Robitussin W/Codeine) 5 ml PO Q4H PRN; Protocol PRN Reason: Cough and congestion Last Admin: 03/25/17 21:41 Dose: 5 ml Cefepime HCl (Maxipime 1gm) 1 gm in 100 mls @ 100 mls/hr IVPB 0600 MOHINDER PRN Reason: Protocol Stop: 04/13/17 06:01 Last Admin: 03/26/17 05:52 Dose: 100 mls/hr Insulin Human Regular (Humulin R High) 0 units SC ACHS MOHINDER PRN Reason: Protocol Last Admin: 03/26/17 12:28 Dose: 7 units Lactic Acid (Lac-Hydrin 12% Lotion (225 G)) 0 gm EXT DAILY MOHINDER PRN Reason: Protocol Last Admin: 03/26/17 10:55 Dose: 1 applic Lactulose (Enulose) 20 gm PO DAILY MOHINDER PRN Reason: Protocol Last Admin: 03/26/17 10:54 Dose: Not Given Lactulose (Enulose) 10 gm PO DAILY [facility] Last Admin: 03/26/17 10:55 Dose: 10 gm Levothyroxine Sodium (Synthroid) 100 mcg PO 0600 MOHINDER PRN Reason: Protocol Last Admin: 03/26/17 05:54 Dose: 100 mcg Metoprolol Succinate (Toprol Xl) 50 mg PO 0800 MOHINDER PRN Reason: Protocol Last Admin: 03/26/17 08:16 Dose: Not Given Mupirocin (Bactroban Ointment) 0 gm TOP BID MOHINDER PRN Reason: Protocol Last Admin: 03/26/17 10:54 Dose: 1 unit Nitroglycerin (Nitro-Bid 2% Oint) 1 ea TOP 0600,1200,1800,0000 MOHINDER PRN Reason: Protocol Last Admin: 03/26/17 12:30 Dose: Not Given Pantoprazole Sodium (Protonix Ec Tab) 40 mg PO 0630 MOHINDER PRN Reason: Protocol Last Admin: 03/26/17 05:54 Dose: 40 mg Ramipril (Altace) 1.25 mg PO DAILY MOHINDER PRN Reason: Protocol Last Admin: 03/26/17 10:54 Dose: Not Given Silver Sulfadiazine (Silvadene 1% 25 Gm) 0 gm TP BID MOHINDER PRN Reason: Protocol Last Admin: 03/26/17 10:57 Dose: 1 gm Zolpidem Tartrate (Ambien) 5 mg PO HS PRN; Protocol PRN Reason: Insomnia Last Admin: 03/25/17 21:41 Dose: 5 mg - Labs Labs: 03/25/17 06:45 03/25/17 06:45 - Extremities Exam Additional comments: VASC: DP and PT pulses palpable 2/4. CFT <3 seconds to all digits. Temperature gradient warm to warm b/l. No edema noted b/l. NEURO: Epicritic and protective sensation grossly diminished b/l. DERM: Ulceration noted to lateral aspect of left 4th digit measuring approximately 1 x 1 x 0.2 cm - wound base is 100% fibrous with slough. No granulation tissue noted, no active drainage, no undermining, no tunneling, no odor, no streaking, or increased calor noted. (+)probe to bone. Increased chronic erythema noted to b/l LE ORTHO: Mild tenderness upon ROM of left 4th digit and upon palpation of ulceration. No POP to b/l calves Assessment and Plan - Assessment and Plan (Free Text) Assessment: 72 y.o male with PMH of CHF, HTN, HLD, DM, PVD, CKD stage IV, AFib s/p ablation is seen and evaluated at bedside ulceration to left fourth digit with underlying OM Plan: Patient seen and evaluated at bedside Plan discussed with attending Dr. Abbasi Afebrile Left foot xray 03/17: No overt radiographic signs of OM at fourth digit. MRI recommended Left foot MRI 03/20: Marrow edema in the fourth proximal and middle phalanx consistent with osteomyelitis Continue abx Wound dressed with Santyl, optifoam Patient's legs lathered with lac-hydrin lotion No plan for surgical intervention at this time Podiatry will continue to follow while patient in house
--- NOTE | 2017-03-26 15:03 | PN ---
DATE: 03/26/2017 SUBJECTIVE: Patient is in room 315. His is at the bedside. Patient is doing well. No nausea or vomiting. PHYSICAL EXAMINATION: VITAL SIGNS: Temperature is 98, blood pressure is 100/40, respiratory rate of 16. HEENT: Unremarkable. NECK: Supple. LUNGS: Have decreased breath sounds. HEART: Normal S1, S2. ABDOMEN: Soft, nontender. LABORATORY EXAMINATION: Reveals the patient to be on with a white count of 6.7, hemoglobin of 8. BUN of 34, creatinine of 3.3. Microbiology is noted and assessed. Review of the orders revealed the patient to be on cefepime 1 g daily. ASSESSMENT AND PLAN: This is a 72-year-old with a left foot cellulitis and probable early osteomyelitis in the fourth digit, middle and proximal phalanges and the patient with diabetes mellitus and peripheral vascular disease, growing Pseudomonas, transudative ascites, status post paracentesis without evidence of infection. Currently on cefepime and complete at least another 2-3 weeks of antibiotics. Patient has had 5 weeks of antibiotics already. Since the CRP is still elevated, we will continue for another 3-4 weeks with a weekly CBC, SMA-18, sed rate, C-reactive protein. Recent Pseudomonas is sensitive to Cipro. Because of a prolonged QTC on EKG, we would not recommend the use of Cipro. Moustapha Frankel MD
[2017-03-26] MEDS: guaiFENesin-Codeine 100-10mg/5ml Syrup (5 ml) UD PO PRN (22:35)
[2017-03-27] MEDS: Pantoprazole 40 mg EC Tab PO SCH (05:47)
[2017-03-27] MEDS: Cefepime 1gm in NS 100ml 1 GM/100 ML BAG IVPB SCH (05:47)
[2017-03-27] MEDS: Levothyroxine 100 MCG TAB PO SCH (05:47)
[2017-03-27] MEDS: Nitroglycerin 2% Ointment Foilpak UD TOP SCH ×3 (05:48→17:44)
[2017-03-27] MEDS: Insulin Reg-HIGH-Coverage SC SCH ×4 (06:58→22:25)
[2017-03-27] MEDS: Metoprolol Succinate 50 mg XL Tab PO SCH (08:45)
[2017-03-27] MEDS: Cholecalciferol 1,000 INTLU TAB PO SCH (09:34)
--- NOTE | 2017-03-27 09:43 | PN ---
DATE: 03/27/2017 SUBJECTIVE: The patient is in bed in no acute distress, nontoxic. PHYSICAL EXAMINATION: VITAL SIGNS: Temperature is 98, blood pressure is 111/60, and respiratory rate of 18. HEENT: Unremarkable. NECK: Supple. LUNGS: Have decreased breath sounds. HEART: Normal S1 and S2. ABDOMEN: Soft and nontender. LABORATORY DATA: Reveals white count of 6.7, hemoglobin of 8, and platelets of 84. Chemistries are noted. Microbiology is reviewed. Review of orders reveals the patient to be on cefepime, which we will renew. ASSESSMENT AND PLAN: A 72-year-old male with left foot cellulitis and probable early osteomyelitis of the fourth digit, middle and proximal phalanges and the patient with diabetes mellitus and peripheral vascular disease with Pseudomonas cellulitis and osteomyelitis. She has ascites, status post paracentesis without evidence of infection, currently on cefepime, we will continue at least two to three more weeks. Pending CBC, SMA 18, sed rate, and C-reactive protein once weekly. Because of the prolonged QTc interval unable to use p.o. Cipro, no other p.o. options available. Moustapha Frankel MD
[2017-03-27] MEDS: Silver Sulfadiazine 1% Cream (25 gm) TP SCH ×2 (10:55→17:42)
[2017-03-27] MEDS: Collagenase 250 Units/gm Ointment(30 gm) TOP SCH (10:55)
--- NOTE | 2017-03-27 11:17 | PN ---
DATE: SUBJECTIVE: The patient is currently seen in TCU. He is lying comfortable supine in bed. is in his room. The patient and his states that he will likely need several more weeks of IV antibiotic therapy for treatment of his left toe osteomyelitis. MEDICATIONS: Medication list reviewed. The patient is on Altace, Ambien, Bactroban, Ecotrin, lactulose, insulin, Lac-Hydrin, Maxipime, Neurontin, nitroglycerin ointment, PhosLo, Plavix, Protonix, Robitussin with Codeine, Santyl, Silvadene, Synthroid, Toprol, Tylenol p.r.n., and vitamin D. OBJECTIVE: VITAL SIGNS: Blood pressure 111/63, temperature 98.6, and respiratory rate 16 with pulse of 73. HEENT: Shows him to be normocephalic, atraumatic. Conjunctivae remain pale. Sclerae are nonicteric. NECK: Supple. No neck vein distention. CHEST: The patient has a right chest wall PermCath. Chest is clear to auscultation and percussion. No rales, no rhonchi or wheezing. CARDIOVASCULAR: Shows a regular rate and rhythm without audible murmurs, rubs or gallops. ABDOMEN: Soft, mildly distended. Mildly tympanitic. Bowel sounds normal. Mild ascites. No rebound, guarding or masses. EXTREMITIES: Show no lower extremity cyanosis, clubbing or edema. He has a dressing over his left fourth toe. LABORATORY DATA AND IMAGING STUDIES: No recent labs were done. Labs will be done pre-dialysis tomorrow. Last glucose was 165. Ammonia level was normal at 14. ASSESSMENT: 1. Acute renal failure superimposed on chronic kidney disease stage IV/V. The patient currently has end-stage renal disease. He is tolerating dialysis well. There are no plans for AV fistula because the patient is on chronic anticoagulation with Plavix in light of his percutaneous transluminal coronary angioplasty and stent. The patient will continue Tuesday, Tuesday, and Tuesday dialysis. Next dialysis is tomorrow. His last dialysis in the hospital will likely take place on 03/30/2017 and his first outpatient dialysis at [facility] will take place on 04/01/2017. 2. History of [id number] diabetes mellitus: Glucose control is improved. The patient continues on sliding insulin. 3. History of hypertension: Blood pressure well controlled. 4. History of cirrhosis with history of elevated ammonia levels. On lactulose the patient's ammonia level was normal. He is off Xifaxan. 5. Osteomyelitis of the left fourth toe: As from my discussion with the patient and family's discussion with Dr. Frankel, infectious disease product marketing consultant, the patient will likely remain on IV antibiotic therapy for at least 3-4 weeks. He does have a PICC line and he can receive this medication at home. His has experienced the knowledgeable about use of the PICC line and IV antibiotic administration. 6. History of anemia: Hemoglobin remains low. The patient will continue maximum dose of Aranesp on dialysis along with iron as necessary. 7. 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 According to , the patient will likely need to return for two more vessels to be angioplastied along with stent placement and this will likely take place sometime later this month or in early April. He will remain on Plavix for the foreseeable future likely in 1 year. The patient is being followed by Cardiology and he continues on low-dose Altace and beta-berkley therapy. 8. History of hypothyroidism: The patient continues thyroid replacement therapy. 9. History of secondary hyperparathyroidism: We will recheck phosphorus levels with dialysis tomorrow. The patient continues on renal diet and binder therapy. PLAN 1. Discussed with the patient and his the plan for getting set up for outpatient dialysis. His will likely visit the dialysis unit either tomorrow or on Tuesday prior to his first dialysis today or next Tuesday. 2. Continue cardiology followup. 3. Continue followup by Dr. Valdes, his medical care manager. 4. Hospital is arranging to have antibiotic therapy sent to us home for him to complete IV antibiotic therapy for his osteomyelitis of his left fourth toe. His will be administering this through his PICC line. Manpreet Dalton MD
[2017-03-27] MEDS: Ammonium Lactate 12% Lotion (225 g) EXT SCH (13:03)
--- NOTE | 2017-03-27 15:49 | PN ---
DATE: 03/26/2017 SUBJECTIVE: The patient was seen this Tuesday morning in the transitional care unit in room 315, bed 1 with his at the bedside. PHYSICAL EXAMINATION: GENERAL: He is awake, alert, clear, in no acute distress and he had dialysis yesterday and continued to be engaged in physical therapy and the activities of the unit. HEENT: Head and neck unremarkable. Conjunctivae are pink. Mucous membranes are moist. EXTREMITIES: Legs show no edema, which is a marked improvement from initial presentation. ABDOMEN: Even the abdomen bloating is much relieved. I spoke with the patient about his ammonia level and reassured him that we would not force him to take medications that have side effects that are too adverse for him to bear (lactulose and the diarrhea it gives him). PLAN: We will continue physical therapy, dialysis as ordered and arrangements to be made for outpatient dialysis and continue on IV antibiotics for osteo. Berto Reyes MD MTDJessica
--- NOTE | 2017-03-27 16:08 | PN ---
DATE: 03/27/2017 The patient was seen this Tuesday morning on the Transitional Care Unit. He was in room 315, bed 1. I spoke to his in that room in the physical therapy gym. He was doing amazing well, sitting on the reclined bicycle, exercising the legs and arms, able to do the exercise without becoming fairly dyspneic. He is in good spirits. I explained to him as well as to his the plan will be for, today is day 5 of his 8 days here on the Transitional Care Unit. He will be ready for dialysis on Tuesday, day 8, and then discharged to home. He would go home with continued IV antibiotics per Dr. Frankel as oral Cipro would not be adequate or safe given his prolonged QT interval. We will check his blood pressure as the patient says he becomes somewhat lightheaded on occasion when he stands up. This may also be just simply related to deconditioning. We will continue physical therapy and the activities at the unit. Dialysis tomorrow. Antibiotics. Berto Reyes MD
--- NOTE | 2017-03-27 16:22 | CP.PCM.PN ---
Subjective - Date & Time of Evaluation Date of Evaluation: 03/27/17 Time of Evaluation: 13:00 - Subjective Subjective: Podiatry Progress Note - Dr. Abbasi 72 year old male patient PMHx CHF, HTN, HLD, DM, PVD, CKD Stage 4, afib s/p ablation seen and evaluated at bedside for left foot fourth digit ulceration. , daughter and two granddaughters present at bedside during visitation. Patient AAO x 3 and NAD and seen resting up at bedside enjoying breakfast. Denies any acute overnight events. States that pain to left fourth toe has gotten better and denies any further pedal complaints at this time. Patient reports that he completed physical therapy today without any problems. Denies N/ V/F/D/C/SOB/D/posterior calf pain when squeezed. Objective - Vital Signs/Intake and Output Vital Signs (last 24 hours): Temp Pulse Resp BP Pulse Ox 98.6 F 73 16 118/55 L 98 03/26/17 16:00 03/27/17 08:45 03/26/17 16:00 03/27/17 09:35 03/26/17 16:00 - Medications Medications: Current Medications Acetaminophen (Tylenol 325mg Tab) 650 mg PO Q6H PRN; Protocol PRN Reason: Pain, Mild (1-3) Last Admin: 03/23/17 23:15 Dose: 650 mg Aspirin (Ecotrin) 81 mg PO 0800 MOHINDER PRN Reason: Protocol Last Admin: 03/27/17 08:45 Dose: 81 mg Calcium Acetate (Phoslo) 667 mg PO 0730,1200,1700 MOHINDER PRN Reason: Protocol Last Admin: 03/27/17 12:58 Dose: 667 mg Cholecalciferol (Vitamin D) 2,000 intlu PO DAILY MOHINDER PRN Reason: Protocol Last Admin: 03/27/17 09:34 Dose: 2,000 intlu Clopidogrel Bisulfate (Plavix) 75 mg PO DAILY MOHINDER PRN Reason: Protocol Last Admin: 03/27/17 09:34 Dose: 75 mg Collagenase (Santyl) 0 gm TOP DAILY MOHINDER PRN Reason: Protocol Last Admin: 03/27/17 10:55 Dose: 1 applic Gabapentin (Neurontin) 300 mg PO DAILY MOHINDER PRN Reason: Protocol Last Admin: 03/27/17 09:35 Dose: 300 mg Guaifenesin/Codeine Phosphate (Robitussin W/Codeine) 5 ml PO Q4H PRN; Protocol PRN Reason: Cough and congestion Last Admin: 03/26/17 22:35 Dose: 5 ml Cefepime HCl (Maxipime 1gm) 1 gm in 100 mls @ 100 mls/hr IVPB 0600 MOHINDER PRN Reason: Protocol Stop: 04/13/17 06:01 Last Admin: 03/27/17 05:47 Dose: 100 mls/hr Insulin Human Regular (Humulin R High) 0 units SC ACHS MOHINDER PRN Reason: Protocol Last Admin: 03/27/17 11:55 Dose: 4 units Lactic Acid (Lac-Hydrin 12% Lotion (225 G)) 0 gm EXT DAILY MOHINDER PRN Reason: Protocol Last Admin: 03/27/17 13:03 Dose: 1 applic Lactulose (Enulose) 10 gm PO DAILY MOHINDER Last Admin: 03/27/17 09:34 Dose: 10 gm Levothyroxine Sodium (Synthroid) 100 mcg PO 0600 MOHINDER PRN Reason: Protocol Last Admin: 03/27/17 05:47 Dose: 100 mcg Metoprolol Succinate (Toprol Xl) 50 mg PO 0800 MOHINDER PRN Reason: Protocol Last Admin: 03/27/17 08:45 Dose: 50 mg Mupirocin (Bactroban Ointment) 0 gm TOP BID MOHINDER PRN Reason: Protocol Last Admin: 03/27/17 09:36 Dose: 1 unit Nitroglycerin (Nitro-Bid 2% Oint) 1 ea TOP 0600,1200,1800,0000 MOHINDER PRN Reason: Protocol Last Admin: 03/27/17 12:55 Dose: 1 ea Pantoprazole Sodium (Protonix Ec Tab) 40 mg PO 0630 MOHINDER PRN Reason: Protocol Last Admin: 03/27/17 05:47 Dose: 40 mg Ramipril (Altace) 1.25 mg PO DAILY MOHINDER PRN Reason: Protocol Last Admin: 03/27/17 09:35 Dose: 1.25 mg Silver Sulfadiazine (Silvadene 1% 25 Gm) 0 gm TP BID MOHINDER PRN Reason: Protocol Last Admin: 03/27/17 10:55 Dose: 1 gm Zolpidem Tartrate (Ambien) 5 mg PO HS PRN; Protocol PRN Reason: Insomnia Last Admin: 03/26/17 22:34 Dose: 5 mg - Labs Labs: 03/25/17 06:45 03/25/17 06:45 - Constitutional Appears: Well, Non-toxic, No Acute Distress - Extremities Exam Additional comments: VASC: DP and PT pulses palpable 2/4. CFT <3 seconds to all digits. Temperature gradient warm to warm b/l. No edema noted b/l. NEURO: Epicritic and protective sensation grossly diminished b/l. DERM: Ulceration noted to lateral aspect of left 4th digit measuring approximately 1 x 1 x 0.2 cm - wound base is 100% fibrous with slough. No granulation tissue noted, no active drainage, no undermining, no tunneling, no odor, no streaking, or increased calor noted. (+)probe to bone. Increased chronic erythema noted to b/l LE ORTHO: Mild tenderness upon ROM of left 4th digit and upon palpation of ulceration. No POP to b/l calves - Neurological Exam Neurological Exam: Alert, Awake, Oriented x3 - Psychiatric Exam Psychiatric exam: Normal Affect, Normal Mood Assessment and Plan - Assessment and Plan (Free Text) Assessment: 72 y.o male with PMH of CHF, HTN, HLD, DM, PVD, CKD stage IV, AFib s/p ablation is seen and evaluated at bedside ulceration to left fourth digit with underlying OM Plan: Patient seen and evaluated at bedside Plan discussed with attending Dr. Abbasi Afebrile absent leukocytosis (WBC=6.7 on 03/25/17) Left foot xray 03/17: No overt radiographic signs of OM at fourth digit. MRI recommended Left foot MRI 03/20: Marrow edema in the fourth proximal and middle phalanx consistent with osteomyelitis Continue abx Wound dressed with Santyl, optifoam Patient's legs lathered with lac-hydrin lotion No plan for surgical intervention at this time Podiatry will continue to follow while patient in house
[2017-03-27] MEDS: guaiFENesin-Codeine 100-10mg/5ml Syrup (5 ml) UD PO PRN (23:11)
[2017-03-28] MEDS: Nitroglycerin 2% Ointment Foilpak UD TOP SCH ×4 (00:13→17:53)
[2017-03-28] MEDS: Cefepime 1gm in NS 100ml 1 GM/100 ML BAG IVPB SCH (06:06)
[2017-03-28] MEDS: Levothyroxine 100 MCG TAB PO SCH (06:07)
[2017-03-28] MEDS: Pantoprazole 40 mg EC Tab PO SCH (06:07)
[2017-03-28] MEDS: Insulin Reg-HIGH-Coverage SC SCH ×4 (08:04→22:03)
[2017-03-28] MEDS: Metoprolol Succinate 50 mg XL Tab PO SCH (08:12)
[2017-03-28] MEDS: Silver Sulfadiazine 1% Cream (25 gm) TP SCH ×2 (10:00→17:52)
[2017-03-28] MEDS: Ammonium Lactate 12% Lotion (225 g) EXT SCH (10:03)
[2017-03-28] MEDS: Cholecalciferol 1,000 INTLU TAB PO SCH (10:03)
[2017-03-28] MEDS: Collagenase 250 Units/gm Ointment(30 gm) TOP SCH (10:03)
[2017-03-28 14:14] LABS: BASO # 0.06 K/mm3 (0.0-2.0); EOS # 0.2 (0.0-0.7); EOS % 2.6 % (1.5-5.0); GRAN # 4.28 (1.4-6.5); GRAN % 68.7 % (50.0-68.0); HEMOGLOBIN 8.8 g/dL (14.0-18.0); LYMPH % 15.7 % (22.0-35.0); MEAN CELL VOLUME 92.8 fl (80.0-105.0); MEAN CORPUSCULAR HEMOGLOBIN 33.2 pg (25.0-35.0); MEAN CORPUSCULAR HGB CONC 35.8 g/dl (31.0-37.0); MEAN PLATELET VOLUME 11.9 fl (7.0-11.0); MONO # 0.8 (0.1-0.6); RBC 2.65 10^6/uL (3.5-6.1); RED CELL DISTRIBUTION WIDTH 14.4 % (11.5-14.5); WHITE BLOOD COUNT 6.2 10^3/ul (4.5-11.0)
[2017-03-28 14:25] LABS: ALB/GLOB RATIO 0.8 (1.1-1.8); CALCIUM 8.7 mg/dL (8.4-10.5); MAGNESIUM 1.7 mg/dL (1.7-2.2)
--- NOTE | 2017-03-28 15:26 | CP.PCM.PN ---
Subjective - Date & Time of Evaluation Date of Evaluation: 03/28/17 Time of Evaluation: 07:30 - Subjective Subjective: 72 year old male patient PMHx CHF, HTN, HLD, DM, PVD, CKD Stage 4, afib s/p ablation rounded on this morning with attending Dr. Abbasi. Patient was in bathroom for entirety of visit but patient's was spoken to. Per , patient AAO x 3 and NAD. Denies any acute overnight events. Denies any further pedal complaints at this time. Denies N/V/F/D/C/SOB/D Objective - Vital Signs/Intake and Output Vital Signs (last 24 hours): Temp Pulse Resp BP Pulse Ox 97.3 F L 64 20 115/64 94 L 03/28/17 11:55 03/28/17 11:55 03/28/17 11:55 03/28/17 11:55 03/28/17 11:55 - Medications Medications: Current Medications Acetaminophen (Tylenol 325mg Tab) 650 mg PO Q6H PRN; Protocol PRN Reason: Pain, Mild (1-3) Last Admin: 03/23/17 23:15 Dose: 650 mg Aspirin (Ecotrin) 81 mg PO 0800 MOHINDER PRN Reason: Protocol Last Admin: 03/28/17 08:12 Dose: 81 mg Calcium Acetate (Phoslo) 667 mg PO 0730,1200,1700 MOHINDER PRN Reason: Protocol Last Admin: 03/28/17 12:18 Dose: 667 mg Cholecalciferol (Vitamin D) 2,000 intlu PO DAILY MOHINDER PRN Reason: Protocol Last Admin: 03/28/17 10:03 Dose: 2,000 intlu Clopidogrel Bisulfate (Plavix) 75 mg PO DAILY MOHINDER PRN Reason: Protocol Last Admin: 03/28/17 10:03 Dose: 75 mg Collagenase (Santyl) 0 gm TOP DAILY MOHINDER PRN Reason: Protocol Last Admin: 03/28/17 10:03 Dose: 1 applic Gabapentin (Neurontin) 300 mg PO DAILY MOHINDER PRN Reason: Protocol Last Admin: 03/28/17 10:03 Dose: 300 mg Guaifenesin/Codeine Phosphate (Robitussin W/Codeine) 5 ml PO Q4H PRN; Protocol PRN Reason: Cough and congestion Last Admin: 03/27/17 23:11 Dose: 5 ml Cefepime HCl (Maxipime 1gm) 1 gm in 100 mls @ 100 mls/hr IVPB 0600 MOHINDER PRN Reason: Protocol Stop: 04/13/17 06:01 Last Admin: 03/28/17 06:06 Dose: 100 mls/hr Insulin Human Regular (Humulin R High) 0 units SC ACHS MOHINDER PRN Reason: Protocol Last Admin: 03/28/17 12:16 Dose: 7 units Lactic Acid (Lac-Hydrin 12% Lotion (225 G)) 0 gm EXT DAILY MOHINDER PRN Reason: Protocol Last Admin: 03/28/17 10:03 Dose: 1 applic Lactulose (Enulose) 10 gm PO DAILY MOHINDER Last Admin: 03/28/17 10:02 Dose: 10 gm Levothyroxine Sodium (Synthroid) 100 mcg PO 0600 MOHINDER PRN Reason: Protocol Last Admin: 03/28/17 06:07 Dose: 100 mcg Metoprolol Succinate (Toprol Xl) 50 mg PO 0800 MOHINDER PRN Reason: Protocol Last Admin: 03/28/17 08:12 Dose: Not Given Mupirocin (Bactroban Ointment) 0 gm TOP BID MOHINDER PRN Reason: Protocol Last Admin: 03/28/17 10:00 Dose: 1 unit Nitroglycerin (Nitro-Bid 2% Oint) 1 ea TOP 0600,1200,1800,0000 MOHINDER PRN Reason: Protocol Last Admin: 03/28/17 12:17 Dose: Not Given Pantoprazole Sodium (Protonix Ec Tab) 40 mg PO 0630 MOHINDER PRN Reason: Protocol Last Admin: 03/28/17 06:07 Dose: 40 mg Ramipril (Altace) 1.25 mg PO DAILY MOHINDER PRN Reason: Protocol Last Admin: 03/28/17 10:02 Dose: 1.25 mg Silver Sulfadiazine (Silvadene 1% 25 Gm) 0 gm TP BID MOHINDER PRN Reason: Protocol Last Admin: 03/28/17 10:00 Dose: 1 gm Zolpidem Tartrate (Ambien) 5 mg PO HS PRN; Protocol PRN Reason: Insomnia Last Admin: 03/27/17 23:09 Dose: 5 mg - Labs Labs: 03/28/17 14:00 03/28/17 14:00 - Extremities Exam Additional comments: Patient's denies any acute changes to the wound on patient's left fourth digit Assessment and Plan - Assessment and Plan (Free Text) Assessment: 72 year old male patient PMHx CHF, HTN, HLD, DM, PVD, CKD Stage 4, afib s/p ablation rounded on this morning with attending Dr. Abbasi Plan: Dr. Abbasi informed patient's that upon patient's discharge from hospital he should follow up in Dr. Abbasi's private office No plan for surgical intervention at this time
--- NOTE | 2017-03-28 15:56 | CP.PCM.PN ---
Subjective - Date & Time of Evaluation Date of Evaluation: 03/28/17 Time of Evaluation: 09:55 - Subjective Subjective: Seen and examined at the bedside earlier today,patient continues to have formed BM, tolerating low dose of lactulose. Denies any overt GI bleed, nausea, vomiting, or abdominal pain. He offers no new complaints. Objective - Vital Signs/Intake and Output Vital Signs (last 24 hours): Temp Pulse Resp BP Pulse Ox 97.3 F L 64 20 115/64 94 L 03/28/17 11:55 03/28/17 11:55 03/28/17 11:55 03/28/17 11:55 03/28/17 11:55 - Medications Medications: Current Medications Acetaminophen (Tylenol 325mg Tab) 650 mg PO Q6H PRN; Protocol PRN Reason: Pain, Mild (1-3) Last Admin: 03/23/17 23:15 Dose: 650 mg Aspirin (Ecotrin) 81 mg PO 0800 MOHINDER PRN Reason: Protocol Last Admin: 03/28/17 08:12 Dose: 81 mg Calcium Acetate (Phoslo) 667 mg PO 0730,1200,1700 MOHINDER PRN Reason: Protocol Last Admin: 03/28/17 12:18 Dose: 667 mg Cholecalciferol (Vitamin D) 2,000 intlu PO DAILY MOHINDER PRN Reason: Protocol Last Admin: 03/28/17 10:03 Dose: 2,000 intlu Clopidogrel Bisulfate (Plavix) 75 mg PO DAILY MOHINDER PRN Reason: Protocol Last Admin: 03/28/17 10:03 Dose: 75 mg Collagenase (Santyl) 0 gm TOP DAILY MOHINDER PRN Reason: Protocol Last Admin: 03/28/17 10:03 Dose: 1 applic Gabapentin (Neurontin) 300 mg PO DAILY MOHINDER PRN Reason: Protocol Last Admin: 03/28/17 10:03 Dose: 300 mg Guaifenesin/Codeine Phosphate (Robitussin W/Codeine) 5 ml PO Q4H PRN; Protocol PRN Reason: Cough and congestion Last Admin: 03/27/17 23:11 Dose: 5 ml Cefepime HCl (Maxipime 1gm) 1 gm in 100 mls @ 100 mls/hr IVPB 0600 MOHINDER PRN Reason: Protocol Stop: 04/13/17 06:01 Last Admin: 03/28/17 06:06 Dose: 100 mls/hr Insulin Human Regular (Humulin R High) 0 units SC ACHS MOHINDER PRN Reason: Protocol Last Admin: 03/28/17 12:16 Dose: 7 units Lactic Acid (Lac-Hydrin 12% Lotion (225 G)) 0 gm EXT DAILY MOHINDER PRN Reason: Protocol Last Admin: 03/28/17 10:03 Dose: 1 applic Lactulose (Enulose) 10 gm PO DAILY MOHINDER Last Admin: 03/28/17 10:02 Dose: 10 gm Levothyroxine Sodium (Synthroid) 100 mcg PO 0600 MOHINDER PRN Reason: Protocol Last Admin: 03/28/17 06:07 Dose: 100 mcg Metoprolol Succinate (Toprol Xl) 50 mg PO 0800 MOHINDER PRN Reason: Protocol Last Admin: 03/28/17 08:12 Dose: Not Given Mupirocin (Bactroban Ointment) 0 gm TOP BID MOHINDER PRN Reason: Protocol Last Admin: 03/28/17 10:00 Dose: 1 unit Nitroglycerin (Nitro-Bid 2% Oint) 1 ea TOP 0600,1200,1800,0000 MOHINDER PRN Reason: Protocol Last Admin: 03/28/17 12:17 Dose: Not Given Pantoprazole Sodium (Protonix Ec Tab) 40 mg PO 0630 MOHINDER PRN Reason: Protocol Last Admin: 03/28/17 06:07 Dose: 40 mg Ramipril (Altace) 1.25 mg PO DAILY MOHINDER PRN Reason: Protocol Last Admin: 03/28/17 10:02 Dose: 1.25 mg Silver Sulfadiazine (Silvadene 1% 25 Gm) 0 gm TP BID MOHINDER PRN Reason: Protocol Last Admin: 03/28/17 10:00 Dose: 1 gm Zolpidem Tartrate (Ambien) 5 mg PO HS PRN; Protocol PRN Reason: Insomnia Last Admin: 03/27/17 23:09 Dose: 5 mg - Labs Labs: 03/28/17 14:00 03/28/17 14:00 - Constitutional Appears: No Acute Distress - Head Exam Head Exam: NORMOCEPHALIC - Eye Exam Eye Exam: Normal appearance. absent: Scleral icterus - ENT Exam ENT Exam: Mucous Membranes Moist - Neck Exam Neck Exam: Normal Inspection - Respiratory Exam Respiratory Exam: NORMAL BREATHING PATTERN. absent: Respiratory Distress - Cardiovascular Exam Cardiovascular Exam: +S1, +S2 - GI/Abdominal Exam GI & Abdominal Exam: Soft, Normal Bowel Sounds. absent: Guarding, Tenderness, Organomegaly, Rebound - Extremities Exam Extremities Exam: absent: Calf Tenderness - Neurological Exam Neurological Exam: Alert, Awake, Oriented x3 - Skin Skin Exam: Dry, Warm Assessment and Plan - Assessment and Plan (Free Text) Assessment: Assessment: Decompensated liver cirrhosis with refractory ascites, s/p paracentesis Triple vessel Disease, s/p cardaic cath w/ PTCA and drug eluding stent End-stage renal disease on dialysis History of hepatic encephalopathy PAD DM Plan: continue lactulose 10 gm daily Continue GI prophylaxis Continue DVT prophylaxis On Plavix and Aspirin On IV antibiotics Diet as tolerated As per renal Case discussed with Dr. Bonilla covering Dr. Mejia.
--- NOTE | 2017-03-28 17:51 | PN ---
DATE: 03/28/2017 SUBJECTIVE: The patient seen in bed in no acute distress. The patient's at the bedside. He tolerated the antibiotic well. PHYSICAL EXAMINATION: VITAL SIGNS: Temperature is 97, blood pressure is 115/60, respiratory rate of 20. HEENT: Examination of HEENT is unremarkable. NECK: Supple. LUNGS: Have decreased breath sounds. HEART: Normal S1, S2. ABDOMEN: Soft, nontender. LABORATORY EXAMINATION: Reveals the patient's white count is 6.7, hemoglobin of 8, platelets of 84. Chemistries are BUN of 34, creatinine of 3. Microbiology is noted. ASSESSMENT/PLAN: A 72-year-old male with a left foot pseudomonas cellulitis and osteomyelitis and the patient with peripheral vascular disease and with a middle and proximal phalanges diabetic peripheral vascular disease with pseudomonas cellulitis and osteomyelitis. He had ascites and status post paracentesis without any current infection. Currently on cefepime. We would continue cefepime therapy, adjusted for renal disease with weekly CBC, SMA-18, sedimentation rate, C-reactive protein. We will follow with you. Moustapha Frankel MD
[2017-03-28 18:38] VITALS: RESP 18
--- NOTE | 2017-03-28 19:18 | PN ---
DATE: 03/28/2017 SUBJECTIVE: The patient is seen lying in bed. He is awake, he is alert, he is comfortable. He denies any pain. He denies any shortness of breath. He moved his bowels today. He is awaiting dialysis. PHYSICAL EXAMINATION: GENERAL: Obese elderly male, lying in bed. VITAL SIGNS: Blood pressure 115/64, heart rate 64, respiratory rate 20, temperature 97.3. HEENT: Normocephalic, atraumatic, positive pallor. LUNGS: Bilateral equal air entry, bilateral equal expansion. EXTREMITIES: 1+ pitting edema of the lower extremities. INTAKE AND OUTPUT: Not charted. LABORATORY DATA: No new labs. MEDICATIONS: Altace 1.25 daily, Ambien, Bactroban, Ecotrin, Enulose, insulin, cefepime, PhosLo, Neurontin, Plavix, Protonix, Silvadene, Synthroid, Toprol-XL 50 daily, Tylenol. ASSESSMENT: 1. End-stage renal disease, file for dialysis today. 2. Evn-mnqyssx-pyqgbiemp diabetes mellitus. 3. Cirrhosis of the liver. 4. Peripheral vascular disease. 5. Nonhealing ulcer. PLAN: 1. Dialysis today. 2. Continue low-dose BRIANA inhibitor. 3. Four-staged percutaneous transluminal coronary angioplasty and stent on 04/21/2017. 4. Discharge planning. Selina Garcia MD
[2017-03-28] MEDS: guaiFENesin-Codeine 100-10mg/5ml Syrup (5 ml) UD PO PRN (22:20)
[2017-03-29] MEDS: Nitroglycerin 2% Ointment Foilpak UD TOP SCH ×4 (01:18→17:23)
[2017-03-29] MEDS: Cefepime 1gm in NS 100ml 1 GM/100 ML BAG IVPB SCH (05:53)
[2017-03-29] MEDS: Pantoprazole 40 mg EC Tab PO SCH (05:54)
[2017-03-29] MEDS: Levothyroxine 100 MCG TAB PO SCH (05:54)
[2017-03-29] MEDS: Insulin Reg-HIGH-Coverage SC SCH ×4 (06:36→22:02)
[2017-03-29] MEDS: Metoprolol Succinate 50 mg XL Tab PO SCH (07:47)
--- NOTE | 2017-03-29 09:03 | PN ---
ADDENDUM DATE: 03/28/2017 I have personally examined this patient and reviewed his laboratory data. I agree with Darline Hannah' assessment and recommendations. The patient has cirrhosis as well as multiple comorbidities including congestive heart failure and coronary artery disease. Continue supportive management. Shane Bonilla MD
--- NOTE | 2017-03-29 09:34 | PN ---
DATE: 03/28/2017 DAILY PROGRESS NOTE SUBJECTIVE: The patient is a 72-year-old male with insulin-dependent diabetes mellitus and chronic hepatorenal disease, who is admitted to [facility] with a non-ST segment elevation myocardial infarction. The patient underwent catheterization and stents were placed in his circumflex artery. Plans are for him to return for repeat catheterization and stenting of his LAD and right coronary artery in early April. During his hospitalization, the patient received hemodialysis catheter and has started on a hemodialysis schedule, this will probably be long-term. Beside being followed by trimming machine set up operator, he is also followed by Gastrology, Dr. Mejia, for his hepatic failure. He is receiving lactulose. He has a chronically elevated ammonia level. When seen today, he was sleeping, but easily arousable, to being awake, alert and oriented. His is at bedside. The patient is planning discharge to home in 2 days after he is scheduled Tuesday hemodialysis. He will be going on home intravenous antibiotics for a wound in the left foot with possible osteomyelitis. He will be continuing with his Tuesday, Tuesday, and Tuesday hemodialysis schedule and follow up with the curator of collections in early April for repeat catheterization as mentioned above. PHYSICAL EXAMINATION: VITAL SIGNS: Stable. Jim Reyes MD
[2017-03-29] MEDS: Silver Sulfadiazine 1% Cream (25 gm) TP SCH ×2 (09:50→17:21)
[2017-03-29] MEDS: Ammonium Lactate 12% Lotion (225 g) EXT SCH (09:55)
[2017-03-29] MEDS: Collagenase 250 Units/gm Ointment(30 gm) TOP SCH (09:55)
[2017-03-29] MEDS: Cholecalciferol 1,000 INTLU TAB PO SCH (09:56)
--- NOTE | 2017-03-29 16:57 | CP.PCM.PN ---
Subjective - Date & Time of Evaluation Date of Evaluation: 03/29/17 Time of Evaluation: 16:53 - Subjective Subjective: 72 year old male patient PMHx CHF, HTN, HLD, DM, PVD, CKD Stage 4, afib s/p ablation seen and evaluated at bedside for left foot fourth digit ulceration. present at bedside. Patient AAO x 3 and NAD. Denies any acute overnight events. States that pain to left fourth toe is increased today and denies any further pedal complaints at this time. States that his recent dialysis treatments have left him exhausted. Denies N/V/F/D/C/SOB/D/posterior calf pain when squeezed. Objective - Vital Signs/Intake and Output Vital Signs (last 24 hours): Temp Pulse Resp BP Pulse Ox 98.2 F 79 18 108/48 L 99 03/29/17 10:00 03/29/17 16:30 03/29/17 10:00 03/29/17 10:00 03/29/17 16:30 Intake and Output: 03/29/17 03/29/17 06:59 18:59 Intake Total 460 Balance 460 - Medications Medications: Current Medications Acetaminophen (Tylenol 325mg Tab) 650 mg PO Q6H PRN; Protocol PRN Reason: Pain, Mild (1-3) Last Admin: 03/23/17 23:15 Dose: 650 mg Aspirin (Ecotrin) 81 mg PO 0800 MOHINDER PRN Reason: Protocol Last Admin: 03/29/17 07:46 Dose: 81 mg Calcium Acetate (Phoslo) 667 mg PO 0730,1200,1700 MOHINDER PRN Reason: Protocol Last Admin: 03/29/17 12:36 Dose: 667 mg Cholecalciferol (Vitamin D) 2,000 intlu PO DAILY MOHINDER PRN Reason: Protocol Last Admin: 03/29/17 09:56 Dose: 2,000 intlu Clopidogrel Bisulfate (Plavix) 75 mg PO DAILY MOHINDER PRN Reason: Protocol Last Admin: 03/29/17 09:56 Dose: 75 mg Collagenase (Santyl) 0 gm TOP DAILY MOHINDER PRN Reason: Protocol Last Admin: 03/29/17 09:55 Dose: 1 applic Gabapentin (Neurontin) 300 mg PO DAILY MOHINDER PRN Reason: Protocol Last Admin: 03/29/17 09:56 Dose: 300 mg Guaifenesin/Codeine Phosphate (Robitussin W/Codeine) 5 ml PO Q4H PRN; Protocol PRN Reason: Cough and congestion Last Admin: 03/28/17 22:20 Dose: 5 ml Cefepime HCl (Maxipime 1gm) 1 gm in 100 mls @ 100 mls/hr IVPB 0600 MOHINDER PRN Reason: Protocol Stop: 04/13/17 06:01 Last Admin: 03/29/17 05:53 Dose: 100 mls/hr Insulin Human Regular (Humulin R High) 0 units SC ACHS MOHINDER PRN Reason: Protocol Last Admin: 03/29/17 12:30 Dose: 2 units Lactic Acid (Lac-Hydrin 12% Lotion (225 G)) 0 gm EXT DAILY MOHINDER PRN Reason: Protocol Last Admin: 03/29/17 09:55 Dose: 1 applic Lactulose (Enulose) 10 gm PO DAILY MOHINDER Last Admin: 03/29/17 09:56 Dose: 10 gm Levothyroxine Sodium (Synthroid) 100 mcg PO 0600 MOHINDER PRN Reason: Protocol Last Admin: 03/29/17 05:54 Dose: 100 mcg Metoprolol Succinate (Toprol Xl) 50 mg PO 0800 MOHINDER PRN Reason: Protocol Last Admin: 03/29/17 07:47 Dose: Not Given Mupirocin (Bactroban Ointment) 0 gm TOP BID MOHINDER PRN Reason: Protocol Last Admin: 03/29/17 09:50 Dose: 1 unit Nitroglycerin (Nitro-Bid 2% Oint) 1 ea TOP 0600,1200,1800,0000 MOHINDER PRN Reason: Protocol Last Admin: 03/29/17 12:36 Dose: Not Given Pantoprazole Sodium (Protonix Ec Tab) 40 mg PO 0630 MOHINDER PRN Reason: Protocol Last Admin: 03/29/17 05:54 Dose: 40 mg Ramipril (Altace) 1.25 mg PO DAILY MOHINDER PRN Reason: Protocol Last Admin: 03/29/17 09:55 Dose: Not Given Silver Sulfadiazine (Silvadene 1% 25 Gm) 0 gm TP BID MOHINDER PRN Reason: Protocol Last Admin: 03/29/17 09:50 Dose: 1 gm Zolpidem Tartrate (Ambien) 5 mg PO HS PRN; Protocol PRN Reason: Insomnia Last Admin: 01/15/18 22:03 Dose: 5 mg - Labs Labs: 03/28/17 14:00 03/28/17 14:00 - Constitutional Appears: Well, Non-toxic, No Acute Distress - Extremities Exam Additional comments: VASC: DP and PT pulses palpable 2/4. CFT <3 seconds to all digits. Temperature gradient warm to warm b/l. No edema noted b/l. NEURO: Epicritic and protective sensation grossly diminished b/l. DERM: Ulceration noted to lateral aspect of left 4th digit measuring approximately 1 x 1 x 0.2 cm - wound base is 100% fibrous with slough. Minimal purulent drainage noted to ulceration site. No granulation tissue noted, no undermining, no tunneling, no odor, no streaking, or increased calor noted. (+) probe to bone. Increased chronic erythema noted to b/l LE ORTHO: Mild tenderness upon ROM of left 4th digit and upon palpation of ulceration. Minimal POP to ulceration site. No POP to b/l calves - Neurological Exam Neurological Exam: Alert, Awake, Oriented x3 - Psychiatric Exam Psychiatric exam: Normal Affect, Normal Mood Assessment and Plan - Assessment and Plan (Free Text) Assessment: 72 y.o male with PMH of CHF, HTN, HLD, DM, PVD, CKD stage IV, AFib s/p ablation is seen and evaluated at bedside ulceration to left fourth digit with underlying OM Plan: Patient seen and evaluated at bedside Plan discussed with attending Dr. Abbasi Afebrile, absent leukocytosis Left foot xray 03/17: No overt radiographic signs of OM at fourth digit. MRI recommended Left foot MRI 03/20: Marrow edema in the fourth proximal and middle phalanx consistent with osteomyelitis Continue abx Wound dressed with Bactroban, optifoam No plan for surgical intervention at this time Patient to be DC'd home tomorrow Patient will follow up with Dr. Abbasi at his private office this week as an outpatient
--- NOTE | 2017-03-29 21:11 | PN ---
DATE: SUBJECTIVE: The patient is currently seen in the TCU, lying comfortable supine in bed. His is in the room. The patient has had uneventful dialysis treatments in the hospital. He will be receiving his final dialysis in the hospital tomorrow prior to being discharged after start dialysis in the outpatient of [facility]. MEDICATIONS: Medication list reviewed. The patient is currently on Altace, Ambien, mupirocin, Ecotrin, Enulose, insulin, Lac-Hydrin, Maxipime, Neurontin, nitroglycerin ointment, PhosLo, Plavix, Protonix, Robitussin with codeine p.r.n., Santyl, Silvadene, Synthroid, Toprol, Tylenol p.r.n., and vitamin D. OBJECTIVE: VITAL SIGNS: Blood pressure 132/69, pulse 79, temperature 98.2 with a respiratory rate of 18. HEENT: Normocephalic and atraumatic. Conjunctivae are pale. Sclerae nonicteric. NECK: Supple. No neck vein distention. CHEST: Positive right chest wall Perm-A-Cath. Chest is clear to auscultation and percussion. No rales. No rhonchi or wheezing. CARDIOVASCULAR: Shows a regular rate and rhythm without audible murmurs, rubs, or gallops. ABDOMEN: Soft. Minimal distention. Mildly tympanitic. Bowel sounds normal. Mild ascites. No rebound, guarding, or masses. EXTREMITIES: Show no lower extremity cyanosis, clubbing, or edema. He has a dressing over his left fourth toe. LABORATORY DATA AND IMAGING: Predialysis blood work yesterday; white blood cell count 6.2, hemoglobin 8.8, stable, and platelet count is 101,000. Chemistry showed normal electrolytes. BUN 39 with a creatinine of 4.2. Glucose is 250. Mild elevation of his liver enzymes. Albumin is low at 3.0. ASSESSMENT: 1. Acute renal failure superimposed on chronic kidney disease stage IV/V. The patient currently has end-stage renal disease. The patient is tolerated inpatient dialysis well; however, his final inpatient dialysis tomorrow prior to transitioning over to outpatient care. He is scheduled for Tuesday, Tuesday, and Tuesday in the outpatient dialysis unit. His did visit the outpatient dialysis unit and she feels comfortable with him receiving dialysis there. 2. History of dhx-rwtznji-cagdjmztd diabetes mellitus. Glucose is improved. The patient continues on sliding scale insulin. 3. History of hypertension. Blood pressure is well controlled. He likelihood now require Altace in the outpatient setting. 4. History of cirrhosis with history of elevated ammonia levels. The patient's last ammonia level was normal on lactulose. He is off Xifaxan. 5. History of osteomyelitis of the left fourth toe. The patient will continue IV antibiotic therapy with Maxipime for at least several more weeks under the guidance of his Infectious Disease specialist. He has a peripherally inserted central catheter line in place. 6. History of anemia. Hemoglobin remains low. The patient will continue maximum doses of Aranesp on dialysis with iron supplementation as necessary. 7. History of atherosclerotic heart disease with multivessel coronary artery disease. He is status post percutaneous transluminal coronary angioplasty and stent x3 vessels. He will likely need to have several more vessels angioplastied and stented. This will be done sometime in early April. He will need to remain on Plavix for upwards of 1 year. This will likely the patient cannot receive an arteriovenous fistula. 8. History of hypothyroidism. The patient continues on thyroid replacement therapy. 9. History of secondary hyperparathyroidism. His phosphorus level on last check was 3.2. The patient will continue binder therapy along with renal diet. PLAN: 1. The patient will receive dialysis tomorrow. Post-dialysis, he may be discharged home. 2. Duration of antibiotics at home at least several weeks as per Dr. Frankel. 3. The patient will follow up with his fruit harvest worker, Dr. Abbasi in the outpatient setting. 4. Cardiology followup scheduled for the end of March or early April. 5. The patient is stable for discharge from a renal standpoint post-dialysis tomorrow. Manpreet Dalton MD
[2017-03-29] MEDS: guaiFENesin-Codeine 100-10mg/5ml Syrup (5 ml) UD PO PRN (22:02)
--- NOTE | 2017-03-29 22:02 | PN ---
DATE: 03/29/2017 SUBJECTIVE: The patient is in bed, in no acute distress. PHYSICAL EXAMINATION: VITAL SIGNS: Temperature is 97, blood pressure is 120/60, respiratory rate of 16. HEENT: Unremarkable. NECK: Supple. LUNGS: Decreased breath sounds. HEART: Normal S1 and S2. ABDOMEN: Soft. LABORATORY EXAMINATION: Reveals a white count of 6.2, hemoglobin of 8, platelets of 101. BUN of 39 and creatinine of 4.2. ASSESSMENT AND PLAN: This is a 72-year-old male who was seen earlier this morning in 215, with left foot Pseudomonas cellulitis and osteomyelitis with peripheral vascular disease with diabetic peripheral vascular disease, Pseudomonas, cellulitis, osteomyelitis, and ascites status post paracentesis without any evidence of infection. Currently on cefepime once daily, adjusted for renal failure. I would recommend CBC, SMA-18, sed rate, C-reactive protein once weekly. Review of orders. Review of cefepime to be available. No p.o. options are available since the patient has a prolonged QTc. Moustapha Frankel MD
--- NOTE | 2017-03-29 22:02 | PN ---
DATE: 03/29/2017 SUBJECTIVE: Today is day #7 of Andrew's 8-day stay here on [facility]. He continues dialysis on Tuesday, Tuesday, and Tuesday. Medications as outlined above and IV antibiotics for osteomyelitis until tomorrow. He is slated for discharge to home. Prescription was sent to the prescription company to resume his IV antibiotics. Case was discussed with renal consultant electronics. Tomorrow, the patient will undergo dialysis and then be ready for discharge to home. Berto Reyes MD
[2017-03-30] MEDS: Nitroglycerin 2% Ointment Foilpak UD TOP SCH ×3 (00:03→15:11)
[2017-03-30] MEDS: Insulin Reg-HIGH-Coverage SC SCH ×2 (08:30→15:11)
[2017-03-30] MEDS: Metoprolol Succinate 50 mg XL Tab PO SCH (08:44)
[2017-03-30] MEDS: Ammonium Lactate 12% Lotion (225 g) EXT SCH (10:38)
[2017-03-30] MEDS: Pantoprazole 40 mg EC Tab PO SCH (10:39)
--- NOTE | 2017-03-30 13:35 | CP.PCM.PN ---
Subjective - Date & Time of Evaluation Date of Evaluation: 03/30/17 Time of Evaluation: 11:20 - Subjective Subjective: Seen and examined at the bedside in dialysis, no acute overnight events reported or new complaints. Patient is having regular formed bowel movements and no reports of bleeding. Continues to tolerate the low-dose lactulose. Denies nausea, vomiting, shortness of breath or chest pain. Objective - Vital Signs/Intake and Output Vital Signs (last 24 hours): Temp Pulse Resp BP Pulse Ox 97.8 F 79 18 114/57 L 98 03/29/17 16:30 03/30/17 08:44 03/29/17 16:30 03/30/17 08:44 03/29/17 16:30 - Medications Medications: Current Medications Acetaminophen (Tylenol 325mg Tab) 650 mg PO Q6H PRN; Protocol PRN Reason: Pain, Mild (1-3) Last Admin: 03/23/17 23:15 Dose: 650 mg Aspirin (Ecotrin) 81 mg PO 0800 MOHINDER PRN Reason: Protocol Last Admin: 03/30/17 08:42 Dose: 81 mg Calcium Acetate (Phoslo) 667 mg PO 0730,1200,1700 MOHINDER PRN Reason: Protocol Last Admin: 03/30/17 08:30 Dose: 667 mg Cholecalciferol (Vitamin D) 2,000 intlu PO DAILY MOHINDER PRN Reason: Protocol Last Admin: 03/29/17 09:56 Dose: 2,000 intlu Clopidogrel Bisulfate (Plavix) 75 mg PO DAILY MOHINDER PRN Reason: Protocol Last Admin: 03/29/17 09:56 Dose: 75 mg Collagenase (Santyl) 0 gm TOP DAILY MOHINDER PRN Reason: Protocol Last Admin: 03/29/17 09:55 Dose: 1 applic Gabapentin (Neurontin) 300 mg PO DAILY MOHINDER PRN Reason: Protocol Last Admin: 03/30/17 10:39 Dose: Not Given Guaifenesin/Codeine Phosphate (Robitussin W/Codeine) 5 ml PO Q4H PRN; Protocol PRN Reason: Cough and congestion Last Admin: 03/29/17 22:02 Dose: 5 ml Cefepime HCl (Maxipime 1gm) 1 gm in 100 mls @ 100 mls/hr IVPB 0600 MOHINDER PRN Reason: Protocol Stop: 04/13/17 06:01 Last Admin: 03/29/17 05:53 Dose: 100 mls/hr Insulin Human Regular (Humulin R High) 0 units SC ACHS MOHINDER PRN Reason: Protocol Last Admin: 03/30/17 08:30 Dose: Not Given Lactic Acid (Lac-Hydrin 12% Lotion (225 G)) 0 gm EXT DAILY MOHINDER PRN Reason: Protocol Last Admin: 03/30/17 10:38 Dose: Not Given Lactulose (Enulose) 10 gm PO DAILY [facility] Last Admin: 03/30/17 10:38 Dose: Not Given Levothyroxine Sodium (Synthroid) 100 mcg PO 0600 MOHINDER PRN Reason: Protocol Last Admin: 03/29/17 05:54 Dose: 100 mcg Metoprolol Succinate (Toprol Xl) 50 mg PO 0800 MOHINDER PRN Reason: Protocol Last Admin: 03/30/17 08:44 Dose: Not Given Mupirocin (Bactroban Ointment) 0 gm TOP BID MOHINDER PRN Reason: Protocol Last Admin: 03/30/17 10:38 Dose: Not Given Nitroglycerin (Nitro-Bid 2% Oint) 1 ea TOP 0600,1200,1800,0000 MOHINDER PRN Reason: Protocol Last Admin: 03/30/17 06:12 Dose: Not Given Pantoprazole Sodium (Protonix Ec Tab) 40 mg PO 0630 MOHINDER PRN Reason: Protocol Last Admin: 03/30/17 10:39 Dose: Not Given Ramipril (Altace) 1.25 mg PO DAILY MOHINDER PRN Reason: Protocol Last Admin: 03/30/17 10:38 Dose: Not Given Silver Sulfadiazine (Silvadene 1% 25 Gm) 0 gm TP BID MOHINDER PRN Reason: Protocol Last Admin: 03/29/17 17:21 Dose: 1 gm Zolpidem Tartrate (Ambien) 5 mg PO HS PRN; Protocol PRN Reason: Insomnia Last Admin: 03/29/17 22:01 Dose: 5 mg - Labs Labs: 03/28/17 14:00 03/28/17 14:00 - Constitutional Appears: No Acute Distress - Eye Exam Eye Exam: Normal appearance. absent: Scleral icterus - ENT Exam ENT Exam: Mucous Membranes Moist - Respiratory Exam Respiratory Exam: NORMAL BREATHING PATTERN. absent: Respiratory Distress - Cardiovascular Exam Cardiovascular Exam: +S1, +S2 - GI/Abdominal Exam GI & Abdominal Exam: Soft, Normal Bowel Sounds. absent: Guarding, Tenderness, Organomegaly, Rebound - Extremities Exam Extremities Exam: absent: Calf Tenderness - Neurological Exam Neurological Exam: Alert, Awake, Oriented x3 - Skin Skin Exam: Dry, Warm Assessment and Plan - Assessment and Plan (Free Text) Assessment: Assessment: Decompensated liver cirrhosis with refractory ascites, s/p paracentesis Triple vessel Disease, s/p cardaic cath w/ PTCA and drug eluding stent End-stage renal disease on dialysis History of hepatic encephalopathy PAD DM Plan: continue lactulose 10 gm daily Continue GI prophylaxis Continue DVT prophylaxis On Plavix and Aspirin On IV antibiotics Diet as tolerated As per renal Plan for discharge home today, discussed with patient and can follow up in our outpatient office. Continue lactulose 10 g daily and can follow up ammonia level outpatient. Discussed with patient and to call our office with any GI concerns. Case discussed with Dr. Bonilla covering Dr. Mejia.
[2017-03-30 13:55] LABS: MAGNESIUM 1.7 mg/dL (1.7-2.2)
[2017-03-30] MEDS: Cefepime 1gm in NS 100ml 1 GM/100 ML BAG IVPB SCH (15:11)
[2017-03-30] MEDS: Cholecalciferol 1,000 INTLU TAB PO SCH (15:13)
[2017-03-30 16:26] VITALS: BP 124/54; PULSE 72; TEMP 98.2; O2SAT 99
--- NOTE | 2017-03-30 20:22 | PN ---
DATE: 03/30/2017 SUBJECTIVE: Patient is seen in the dialysis unit. He is awake. He is alert. He is comfortable. He denies any pain. He denies any shortness of breath. PHYSICAL EXAMINATION GENERAL: Obese elderly male, seen in the dialysis unit. VITAL SIGNS: Blood pressure 114/57, heart rate 79, respiratory rate 18, temperature 97.8. HEENT: Normocephalic, atraumatic. NECK: Supple, no JVD. LUNGS: Bilateral equal air entry, bilateral equal expansion. ABDOMEN: Obese, distended, bowel sounds present. EXTREMITIES: Trace lower extremity edema. Intake and output not charted. No new labs. Current medications, list reviewed. ASSESSMENT 1. Stable dialysis. 2. Cirrhosis of the liver, status post paracentesis. 3. Encephalopathy, compensated at present. 4. Non-insulin dependent diabetes mellitus. 5. Hypertension. PLAN 1. Dialysis, Tuesday, Tuesday and Tuesday. 2. Lactulose as per GI. 3. No objection to discharge Selina Garcia MD
--- NOTE | 2017-03-30 21:23 | PN ---
ADDENDUM I have personally examined this patient. There are no new laboratory data to review. I agree with Darline Hannah' assessment and recommendations. The patient has stable ascites secondary to cirrhosis without any worsening of ascites. He also has end-stage renal disease requiring hemodialysis. He has chronic anemia. The patient is to be discharged home with outpatient followup with Dr. Mejia. Shane Bonilla MD
--- NOTE | 2017-03-30 21:45 | PN ---
DATE: 03/30/2017 SUBJECTIVE: The patient is in bed, in no acute distress, nontoxic. PHYSICAL EXAMINATION VITAL SIGNS: On exam, the patient has temperature of 97, blood pressure is 114/70, and respiratory rate of 16. HEENT: Examination of HEENT is unremarkable. NECK: Supple. LUNGS: Have decreased breath sounds. HEART: Normal S1 and S2. ABDOMEN: Soft. LABORATORY DATA: Laboratory examination is noted. Microbiology is reviewed. ASSESSMENT AND PLAN: This is a 72-year-old male who is seen earlier this morning with a left foot Pseudomonas cellulitis and osteomyelitis , peripheral vascular disease, diabetic with Pseudomonas cellulitis and osteomyelitis of the foot with ascites, status post paracentesis without any evidence of infection, currently on cefepime. We will follow up as an outpatient with CBC, SMA-18, sed rate, C-reactive protein Pseudomonas sensitive to p.o. Cipro because of a prolonged QT interval. We will follow with you. Moustapha Frankel MD
== END 2017-03-30 17:24 | disposition home health service (06) | DRG 280 ==
LOC: TRCU 18:35
PROVIDERS: ADMIT Internal Medicine; ATTEND Internal Medicine
PROC: 5A1D70Z Performance of Urinary Filtration, Intermittent, Less than 6 Hours Per Day (ICD-10-PCS; principal; 2017-03-23)
PROC: F07Z9FZ Gait Training/Functional Ambulation Treatment using Assistive, Adaptive, Supportive or Protective Equipment (ICD-10-PCS; 2017-03-24)
PROC: F07L6YZ Therapeutic Exercise Treatment of Musculoskeletal System - Lower Back / Lower Extremity using Other Equipment (ICD-10-PCS; 2017-03-24)
PROC: F08Z4FZ Home Management Treatment using Assistive, Adaptive, Supportive or Protective Equipment (ICD-10-PCS; 2017-03-24)
DX: I21.4 Non-ST elevation (NSTEMI) myocardial infarction (principal); N18.6 End stage renal disease; L03.116 Cellulitis of left lower limb; M86.8X7 Other osteomyelitis, ankle and foot; N17.9 Acute kidney failure, unspecified; N25.81 Secondary hyperparathyroidism of renal origin; R18.8 Other ascites; K74.60 Unspecified cirrhosis of liver; E11.22 Type 2 diabetes mellitus with diabetic chronic kidney disease; I48.91 Unspecified atrial fibrillation; E11.51 Type 2 diabetes mellitus with diabetic peripheral angiopathy without gangrene; E11.69 Type 2 diabetes mellitus with other specified complication; I25.10 Atherosclerotic heart disease of native coronary artery without angina pectoris; I50.9 Heart failure, unspecified; E11.621 Type 2 diabetes mellitus with foot ulcer; L97.529 Non-pressure chronic ulcer of other part of left foot with unspecified severity; D63.1 Anemia in chronic kidney disease; J44.9 Chronic obstructive pulmonary disease, unspecified; E78.5 Hyperlipidemia, unspecified; B96.5 Pseudomonas (aeruginosa) (mallei) (pseudomallei) as the cause of diseases classified elsewhere; E03.9 Hypothyroidism, unspecified; Z77.090 Contact with and (suspected) exposure to asbestos; E66.9 Obesity, unspecified; Z68.31 Body mass index [BMI] 31.0-31.9, adult; Z95.5 Presence of coronary angioplasty implant and graft; Z79.4 Long term (current) use of insulin; Z99.2 Dependence on renal dialysis; Z87.891 Personal history of nicotine dependence; Z79.01 Long term (current) use of anticoagulants; Z86.010 Personal history of colon polyps

== ENCOUNTER 2017-04-21 06:07 | Day surgery (SDC) | payer MEDICARE, OTHER ==
[2017-04-19 12:17] VITALS: BMI 30.9
[2017-04-21] MEDS ORDERED: HEPARIN SODIUM/NS 2,000 ML IV ONE (07:02)
[2017-04-21] MEDS ORDERED: Iodixanol 320 MG/ML 200 ML BOTTLE IV ONE (07:02)
[2017-04-21] MEDS ORDERED: Iohexol 350mgl/ml 50 ML ONE (07:02)
[2017-04-21] MEDS ORDERED: Phenylephrine 10 mg/ml Inj ONE (07:02)
[2017-04-21] MEDS ORDERED: Lidocaine 2% Inj (20ml) ONE (07:02)
[2017-04-21 07:03] VITALS: RESP 18; O2SAT 98
[2017-04-21 07:07] LABS: CALCIUM 9.4 mg/dL (8.4-10.5)
[2017-04-21 07:23] LABS: BASO # 0.06 K/mm3 (0.0-2.0); EOS # 0.2 (0.0-0.7); EOS % 3.2 % (1.5-5.0); GRAN # 3.45 (1.4-6.5); GRAN % 58.6 % (50.0-68.0); HEMOGLOBIN 9.9 g/dL (14.0-18.0); LYMPH # 1.4 (1.2-3.4); LYMPH % 24.1 % (22.0-35.0); MEAN CORPUSCULAR HEMOGLOBIN 31.4 pg (25.0-35.0); MEAN CORPUSCULAR HGB CONC 33.4 g/dl (31.0-37.0); MEAN PLATELET VOLUME 11.8 fl (7.0-11.0); MONO # 0.8 (0.1-0.6); MONO % 13.1 % (1.0-6.0); RBC 3.15 10^6/uL (3.5-6.1); RED CELL DISTRIBUTION WIDTH 16.1 % (11.5-14.5); WHITE BLOOD COUNT 5.9 10^3/ul (4.5-11.0)
[2017-04-21 07:24] LABS: INR 1.07 (0.93-1.08); PARTIAL THROMBOPLASTIN TIME 31.6 Seconds (25.1-36.5); PROTHROMBIN TIME 12.3 SECONDS (9.4-12.5)
[2017-04-21] MEDS ORDERED: Midazolam 2 MG/2 ML VIAL ONE (07:41)
[2017-04-21] MEDS ORDERED: Eptifibatide 20 mg/10mL Inj IVP ONE ×2 (07:48→08:00)
[2017-04-21] MEDS ORDERED: Pantoprazole 40 mg EC Tab PO SCH (10:00)
[2017-04-21] MEDS ORDERED: Metoprolol Succinate 50 mg XL Tab PO SCH (10:00)
[2017-04-21] MEDS ORDERED: Cholecalciferol 1,000 INTLU TAB PO SCH (10:00)
[2017-04-21] MEDS ORDERED: Levothyroxine 88 MCG TAB PO SCH (10:00)
[2017-04-21] MEDS: Ammonium Lactate 12% Cream (140 g) TOP SCH ×2 (10:22→17:32)
[2017-04-21 12:03] VITALS: TEMP 97.4
[2017-04-21 12:44] LABS: BASO # 0.02 K/mm3 (0.0-2.0); BASO % 0.4 % (0.0-3.0); CALCIUM 8.6 mg/dL (8.4-10.5); EOS # 0.1 (0.0-0.7); EOS % 2.8 % (1.5-5.0); GRAN # 2.67 (1.4-6.5); GRAN % 56.8 % (50.0-68.0); HEMOGLOBIN 8.7 g/dL (14.0-18.0); LYMPH # 1.2 (1.2-3.4); LYMPH % 26.4 % (22.0-35.0); MEAN CORPUSCULAR HEMOGLOBIN 32.6 pg (25.0-35.0); MEAN CORPUSCULAR HGB CONC 34.7 g/dl (31.0-37.0); MONO # 0.6 (0.1-0.6); MONO % 13.6 % (1.0-6.0); RBC 2.67 10^6/uL (3.5-6.1); RED CELL DISTRIBUTION WIDTH 16.1 % (11.5-14.5); WHITE BLOOD COUNT 4.7 10^3/ul (4.5-11.0)
--- NOTE | 2017-04-21 13:54 | HP ---
REASON FOR ADMISSION: Angioplasty of LAD and RCA. BRIEF CLINICAL HISTORY: This is a 72-year-old male with past medical history significant for end-stage renal disease on dialysis, started on last admission, admitted with non-ST segment myocardial infarction, and subsequently patient underwent drug-eluting stent in the proximal circumflex, mid circumflex, and obtuse marginal 1; now patient is admitted for staged angioplasty of LAD and RCA. Patient denies any chest pain, shortness of breath, or any palpitation. PAST MEDICAL HISTORY: Significant for chronic renal insufficiency, started on dialysis recently, hypertension, hyperlipidemia. PREVIOUS CARDIAC WORKUP: Patient had a recent echo, on 03/15/2017, that showed ejection fraction of 60% to 65%, trace aortic regurgitation, mild to moderate aortic stenosis, mild mitral regurgitation, mild to moderate tricuspid regurgitation, RV systolic pressure 49. Patient had cardiac catheterization and subsequently PTCA was done on 03/21/2017. As mentioned, the cardiac catheterization revealed left main is a large caliber vessel, calcification noted, but no significant stenosis noted, bifurcated LAD circumflex, LAD has 80% to 90% stenosis in the mid segment and the distal LAD has 80% to 90% stenosis noted. Circumflex is a large caliber vessel, with diffuse calcification noted; proximal segment 80% stenosis, mid circumflex 95% stenosis noted. First obtuse marginal 1 with 99% stenosis noted. Right coronary artery has 80% stenosis. Ejection fraction of 60% 65%. EDP was in the range of 16. Patient subsequently underwent PTCA with drug-eluting stent in the proximal, mid circumflex, and obtuse marginal 1. Now patient is admitted for a staged angioplasty of LAD and RCA. Patient was initially admitted on 03/12/2017 with non-STEMI and acute kidney injury and chronic renal insufficiency, started dialysis and then patient had PTCA done. History of hypertension, history of hyperlipemia, history of chronic CKD. REVIEW OF SYSTEMS: As per HPI. CURRENT MEDICATIONS: Currently patient is taking ramipril 1.25 mg, Protonix, nitroglycerin, metoprolol, levothyroxine, lactulose, insulin, clopidogrel, aspirin. ALLERGIES: NO KNOWN DRUG ALLERGIES. REVIEW OF SYSTEMS: As per HPI. PHYSICAL EXAMINATION: VITAL SIGNS: Temperature afebrile, heart rate 72, blood pressure 124/54. HEENT: PERRLA. Extraocular muscles intact. NECK: Supple. No carotid bruit or thyromegaly. CHEST: Clear to auscultation. HEART: S1 and S2 regular. ABDOMEN: Soft. EXTREMITIES: Clubbing and cyanosis negative. LABORATORY DATA: Blood workup as follows, WBC 6.8, hemoglobin 8.8, hematocrit 24.6, platelet count 101 as on 03/28/2017. Chemistry showed sodium 134, potassium , chloride 97, carbon dioxide 28, anion gap of 30, BUN 39, creatinine 4.2. IMPRESSION: End-stage renal disease on dialysis, non-ST segment myocardial infarction, coronary artery disease status post percutaneous transluminal coronary angioplasty of proximal, mid and circumflex as well as obtuse marginal 1. Now presents for staged angioplasty of left anterior descending artery and right coronary artery, diabetes, hypertension, hyperlipidemia, obesity. RECOMMENDATIONS: Continue aspirin and Plavix. We will do the repeat blood workup. Risks, benefits, and alternative explained to the patient. Patient agreed. We will proceed for cardiac catheterization from the right femoral. Further recommendations after cardiac catheterization. We will follow with you. Thank you Dr. Reyes for providing us the opportunity in taking care of the patient, Andrew Tanner. Isabella Mcgregor MD
--- NOTE | 2017-04-21 17:26 | CARD ---
APPROVED REPORT Procedure(s) performed: Selective Right and Left Coronary Angiography PTCA with Balloon Angioplasty of proximal and Mid RCA HISTORY The patient is a 72 year-old male with a history of : previous SC (> 7 days), most recent EF: 60%. (EF Method: LVG), previous CHF, renal failure with dialysis, peripheral vascular disease, diabetes mellitus with insulin treatment , chronic lung disease, previous diagnostic cath, tobacco history() : The patient is a former smoker , previous PCI (The PCI date was 03/21/2017), hypertension , For staged PTCA of RCA. INDICATION The indication(s) include : For staged PTCA of RCA, HX of NSTEMI. CASE TECHNIQUE The patient was brought electively to the Cardiac Catheterization Laboratory in a fasting state and was prepped and draped in a sterile manner. The right femoral groin was infiltrated with 2% Lidocaine subcutaneous anesthesia. A 6 Fr x 23 cm Nereyda sheath was inserted into the right femoral artery without difficulty. Coronary angiography was performed using coronary diagnostic catheters. The left coronary system was accessed and visualized with a Diagnostic ,6 Fr Performa JL 4 catheter. The right coronary system was accessed and visualized with a Diagnostic ,6 Fr JR 3.5 catheter. Closure device was deployed with a 6 Fr / 7 Fr MynxGrip without any complications. The patient tolerated the procedure well and there were no complications associated with the procedure. Vessel Analysis The patient's coronary anatomy is right dominant. The left main coronary artery is a large size vessel with diffuse calcification noted throughout this vessel and without significant stenosis. The left main bifurcates to the left anterior descending and circumflex. The left anterior descending artery is a medium size vessel with diffuse calcification noted throughout this vessel and without significant stenosis. There is a 80-90% stenosis in the distal segment. The first diagonal branch is a small size vessel with diffuse calcification noted throughout this vessel and without significant stenosis. The circumflex artery is a large size vessel with diffuse calcification noted throughout this vessel and without significant stenosis. patent stents in proximal and mid Cx The first obtuse marginal branch is a medium size vessel atent stent in mid segment. The right coronary artery is a medium size vessel with diffuse calcification noted throughout this vessel and without significant stenosis. There is a 80-90% stenosis in the mid segment. The right posterior descending artery is a small size vessel with diffuse calcification noted throughout this vessel and without significant stenosis. PCI Technique Lesion Anticoagulation was achieved with Heparin. Percutaneous coronary intervention was performed on the mid right coronary artery. The lesion stenosis prior to intervention was 90% with JERRY 2 flow. A 6 Fr JR 4 Guide Catheter was used to engage the ostium. BALLOON DILATION A Balloon catheter 2.0 x 15 mm Sprinter RX was inserted and inflated up to 12.00atm for 12seconds. then redilated with 2.5/15 sprinter at 14 atmos STENT DEPLOYMENT Could not take stent down b/c of calcified and tortous vessel Final angiography reveals 30-40 % stenosis with JERRY 3 flow. Conclusion Successful PTCA with POBAof Mid RCA Patent stent in Cx and OM1 Recommendations Daily ASA with Plavix for at least one year Aggressive Medical TherapyCardiac Risk Reduction Program Weight Loss Reduction Program F/u stress test in 6 months to one year. If PTCA site stenosed consider ROTA Ablation of RCA+/_ LAD Cc; Dr. Robert E.MD
[2017-04-21] MEDS ORDERED: Bacitracin 500 Units/gm Oint Foilpak UD ONE (17:56)
--- NOTE | 2017-04-21 18:05 | CARD ---
APPROVED REPORT EKG Measurement Heart [id number] <Conclusion> Sinus rhythm with 1st degree AV block with premature atrial complexes Prolonged QT Abnormal ECG
--- NOTE | 2017-04-21 18:10 | CARD ---
APPROVED REPORT EKG Measurement Heart [id number] <Conclusion> Sinus rhythm with 1st degree AV block Prolonged QT Abnormal ECG
[2017-04-21 18:57] VITALS: BP 95/43; PULSE 69
--- NOTE | 2017-04-22 02:01 | CON ---
DATE: 04/21/2017 REASON FOR CONSULTATION: Need for dialysis post cardiac cath. HISTORY OF PRESENTING ILLNESS: A 72-year-old male, known to me from outpatient hemodialysis. The patient was brought in today for interval cardiac catheterization/CLOTH EXAMINER HAND. The patient is status post CLOTH EXAMINER HAND of the RCA. Balloon angioplasty. No stents placed. 100 mL of dye given. Currently, the patient is seen lying in bed. He is awake, he is alert. He denies any chest pain. He denies any palpitations. He denies any shortness of breath. His hemoglobin is 9.9. PAST MEDICAL AND SURGICAL HISTORY: NIDDM, hypertension, cirrhosis of the liver, ascites, history of hepatic encephalopathy, CAD, PTCA and stent, now status post CLOTH EXAMINER HAND of the RCA. Anemia of chronic kidney disease. FAMILY HISTORY: Noncontributory. SOCIAL HISTORY: Ex-smoker, ex-alcohol user, no IV drug abuse. ALLERGIES: NO KNOWN DRUG ALLERGIES. MEDICATIONS: Altace 1.25 daily, nitroglycerin, Protonix, lactulose, insulin, gabapentin, Plavix, Toprol XL, Synthroid, cholecalciferol, calcium acetate, aspirin. REVIEW OF SYSTEMS: All systems are reviewed, pertinent positives as mentioned in the history of presenting illness, rest unremarkable. PHYSICAL EXAMINATION: GENERAL: Elderly male, lying in bed. VITAL SIGNS: Blood pressure 121/55, heart rate 78, respiratory rate 18, temperature 97.7. HEENT: Normocephalic, atraumatic. NECK: Supple, no JVD, positive pallor. LUNGS: Bilateral equal air entry, bilateral equal expansion. CARDIAC: S1 and S2, regular rate and rhythm, no murmur, no rub. ABDOMEN: Obese, distended, soft, nontender, bowel sounds present. EXTREMITIES: Chronic stasis changes. No lower extremity edema. LABORATORY DATA: WBC 4.7, hemoglobin 8.7, hematocrit 25, platelets 41. Sodium 138, potassium 4.2, chloride 97, CO2 of 29, BUN 41, creatinine 5.0, glucose 242. ASSESSMENT: 1. Coronary artery disease, status post cardiac catheterization, percutaneous transluminal angioplasty of the right coronary artery. 2. [id number] diabetes mellitus. 3. Hypertension. 4. Peripheral vascular disease. 5. End-stage renal disease. 6. Anemia. PLAN: 1. Dialysis today for 2 hours to remove 1.5 to 2 kg. 2. Monitor H and H. 3. Regular dialysis tomorrow. 4. Continue outpatient medications. Selina Garcia MD
== END 2017-04-21 19:32 | disposition home or self-care (01) ==
LOC: SDSVAS 06:07 → 2RSO 09:05 → SDSVAS 19:32
PROVIDERS: ATTEND Internal Medicine Cardiovascular Disease
DX: I21.4 Non-ST elevation (NSTEMI) myocardial infarction (principal); I25.10 Atherosclerotic heart disease of native coronary artery without angina pectoris; I13.2 Hypertensive heart and chronic kidney disease with heart failure and with stage 5 chronic kidney disease, or end stage renal disease; N18.6 End stage renal disease; I50.9 Heart failure, unspecified; Z99.2 Dependence on renal dialysis; E11.22 Type 2 diabetes mellitus with diabetic chronic kidney disease; Z87.891 Personal history of nicotine dependence; E11.51 Type 2 diabetes mellitus with diabetic peripheral angiopathy without gangrene; Z95.5 Presence of coronary angioplasty implant and graft; D63.1 Anemia in chronic kidney disease; K74.60 Unspecified cirrhosis of liver; E78.5 Hyperlipidemia, unspecified; E66.9 Obesity, unspecified; Z79.4 Long term (current) use of insulin
CPT/HCPCS: 36415; 80048; 80061; 85025; 85175; 85610; 85730; 86850; 86900; 92920; 93005; 93454; 99152; 99153; C1725 ×3; C1760; C1769 ×3; C1887 ×3; C2629; J1327; J1644 ×2; J2250; J3010; J7030; Q9967

== ENCOUNTER 2017-05-26 12:12 | Inpatient (IN) | payer MEDICARE, OTHER ==
[2017-05-26 12:27] VITALS: BMI 29.5
--- NOTE | 2017-05-26 12:44 | ED PDOC ---
Arrival/HPI - General Chief Complaint: Altered Mental Status Time Seen by Provider: 05/26/17 12:29 Historian: Patient, Spouse - History of Present Illness Narrative History of Present Illness (Text): 05/26/17 12:40 A 72 year old male, whose past medical history includes hypertension and ESRD with hemodialysis on //, sent into the emergency department by PMD accompanied by for acting more confused. reports patient was last seen normal at 05:30 yesterday morning prior to going to dialysis. She notes when he returned home he was generally weak, fatigued and confused. For example , he was acting strangely and couldn't administer his insulin and throwing food on the floor. Denies focal weakness. denies any fever, chills, nausea, vomiting, diarrhea, abdominal pain, urinary symptoms, chest pain, shortness of breath, cough, runny nose or any other complaints. PMD: Dr. Jim Reyes 05/26/17 14:51 Time/Duration: Other (yesterday) Symptom Course: Unchanged Context: Home Past Medical History - Provider Review Nursing Documentation Reviewed: Yes - Cardiac Hx Cardiac Disorders: No Hx Pacemaker: No - Pulmonary Hx Respiratory Disorders: Yes (asbestosis) - Neurological Hx Neurological Disorder: No Hx Paralysis: No - HEENT Hx HEENT Disorder: Yes Hx Macular Degeneration: Yes - Renal Hx Renal Disorder: Yes Hx Renal Failure: Yes - Endocrine/Metabolic Hx Endocrine Disorders: Yes Hx Diabetes Mellitus Type 2: Yes Hx Hypothyroidism: Yes - Hematological/Oncological Hx Blood Disorders: No - Integumentary Hx Dermatological Disorder: Yes Hx Cellulitis: Yes (to feet bilaterally) Other/Comment: B/L leg erythema. Edema +1 B/L - Musculoskeletal/Rheumatological Hx Musculoskeletal Disorders: Yes - Gastrointestinal Hx Gastrointestinal Disorders: No - Genitourinary/Gynecological Hx Genitourinary Disorders: No Hx Reproductive Disorders: No Other/Comment: Chronic elevated Ammonia level - Psychiatric Hx Psychophysiologic Disorder: No Hx Emotional Abuse: No Hx Physical Abuse: No Hx Substance Use: No - Surgical History Hx Cholecystectomy: Yes Other/Comment: hernia repair, b/l total knee replacement 1996, 2001, left pigtail stent, r elbow sx - Anesthesia Hx Anesthesia Reactions: No - Suicidal Assessment Feels Threatened In Home Enviroment: No Family/Social History - Physician Review Nursing Documentation Reviewed: Yes Family/Social History: No Known Family HX Smoking Status: Former Smoker Hx Alcohol Use: No Hx Substance Use: No Allergies/Home Meds Allergies/Adverse Reactions: Allergies No Known Allergies Allergy (Verified 05/26/17 12:26) Home Medications: Home Meds Medication Instructions Recorded Confirmed Levothyroxine [Synthroid] 88 mcg PO DAILY 02/17/17 05/26/17 Metoprolol Succinate [Toprol XL] 50 mg PO DAILY 02/17/17 05/26/17 Cholecalciferol [Vitamin D] 2,000 mg PO DAILY 03/12/17 05/26/17 Insulin Aspart Prot/Insuln Asp 25 unit SC BID 03/12/17 05/26/17 [Novolog Mix 70-30 Vial] Clopidogrel [Plavix] 75 mg PO DAILY 04/19/17 05/26/17 Lactulose [Generlac] 10 ml PO DAILY 04/19/17 05/26/17 Nitroglycerin [Nitrostat] 0.4 mg SL PRN PRN 04/19/17 05/26/17 Ramipril [Altace] 1.25 mg PO DAILY 04/19/17 05/26/17 Alpha Lipoic Acid 600 mg PO BID 05/26/17 05/26/17 Calcium Acetate [Phoslo] 66 mg PO TID 05/26/17 05/26/17 Review of Systems - Physician Review All systems were reviewed & negative as marked: Yes - Review of Systems Constitutional: Fatigue, Other (generalized fatigue). absent: Fevers, Night Sweats ENT: absent: Rhinorrhea Respiratory: absent: SOB, Cough Cardiovascular: absent: Chest Pain Gastrointestinal: absent: Abdominal Pain, Diarrhea, Nausea, Vomiting Genitourinary Male: absent: Dysuria, Frequency, Hematuria Psychiatric: Other (confused) Physical Exam Vital Signs Reviewed: Yes Vital Signs Temp Pulse Resp BP Pulse Ox 05/26/17 13:31 97.3 F L 05/26/17 12:27 97.4 F L 69 18 135/63 100 05/26/17 12:26 97.8 F 69 18 135/63 100 Temperature: Afebrile Blood Pressure: Normal Pulse: Regular Respiratory Rate: Normal Appearance: Positive for: Well-Appearing, Non-Toxic, Comfortable Pain Distress: None Mental Status: Positive for: other (AAOx2) - Systems Exam Head: Present: Atraumatic, Normocephalic Pupils: Present: PERRL Extroacular Muscles: Present: EOMI Conjunctiva: Present: Normal Mouth: Present: Moist Mucous Membranes Neck: Present: Normal Range of Motion. No: Meningeal Signs Respiratory/Chest: Present: Clear to Auscultation, Good Air Exchange, Other ( dialysis cath to right chest wall). No: Respiratory Distress, Accessory Muscle Use Cardiovascular: Present: Regular Rate and Rhythm, Normal S1, S2. No: Murmurs Abdomen: Present: Normal Bowel Sounds. No: Tenderness, Distention, Peritoneal Signs Upper Extremity: Present: Normal Inspection, Normal ROM, Neurovascularly Intact. No: Cyanosis, Edema Lower Extremity: Present: Normal Inspection, Normal ROM, Neurovascularly Intact. No: Edema Neurological: Present: GCS=15, CN II-XII Intact, Speech Normal, Motor Func Grossly Intact, Normal Sensory Function, Normal Cerebellar Funct Skin: Present: Warm, Dry, Normal Color. No: Rashes Psychiatric: Present: Alert, Normal Insight, Normal Concentration, Other ( appears confused, oriented x 2) Medical Decision Making ED Course and Treatment: 05/26/17 12:40 Impression: A 72 year old male with fatigue and confusion. Last known well 5am yesterday Plan: -- Head CT -- Chest xray -- Labs -- Blood and Urine culture -- Urinalysis -- Reassess and disposition Progress Notes: EKG shows NSR at 69 BPM with 1st degree AV block, nonspecific ST changes, QTC 510, similar to prior on 04/21/17. Interpreted by me. 05/26/17 13:19 Lactate 2.1 but patient has no SIRS criteria. 1L IVF bolus ordered. Report Date : 05/26/2017 13:09:53 Procedure: Chest xray Dictator : Emery Mcfadden MD IMPRESSION: No active disease. Report Date : 05/26/2017 14:07:09 PROCEDURE: CT HEAD WITHOUT CONTRAST. Dictator : Jim Youssef MD IMPRESSION: No acute findings 05/26/17 14:37 Hyperglycemia treated with IVF and insulin. Labs otherwise at baseline. Will need tele observation for neuro eval for AMS and further evaluation. 05/26/17 14:53 - Lab Interpretations Lab Results: 05/26/17 12:40 05/26/17 12:40 Lab Results 05/26/17 13:47: Urine Color Yellow, Urine Appearance Clear, Urine pH 7.0, Ur Specific [place] 1.015, Urine Protein 30 H, Urine Glucose (UA) >=1000, Urine Ketones Trace H, Urine Blood Trace-intact H, Urine Nitrate Negative, Urine Bilirubin Negative, Urine Urobilinogen 1.0 H, Ur Leukocyte Esterase Trace H, Urine RBC 5 - 10, Urine WBC 2 - 5, Ur Epithelial Cells 6 - 8 05/26/17 13:03: Ammonia 32 05/26/17 13:03: pO2 45, VBG pH 7.37, VBG pCO2 51.0, VBG HCO3 29.5 H, VBG Total CO2 31.1 H, VBG O2 Sat (Calc) 83.6 H, VBG Base Excess 3.1 H, VBG Potassium 4.0, Glucose 332 H, Lactate 2.1, FiO2 21.0, Sodium 137.0, Chloride 102.0, Venous Blood Potassium 4.0 05/26/17 12:45: Alcohol, Quantitative < 10 05/26/17 12:40: Salicylates 1 L, Acetaminophen < 10.0 L 05/26/17 12:40: Sodium 139, Potassium 4.2, Chloride 99, Carbon Dioxide 29, Anion Gap 15, BUN 32 H, Creatinine 2.8 H, Est GFR ( Amer) 27, Est GFR ( Non-Af Amer) 22, Random Glucose 325 H* D, Calcium 10.0, Phosphorus 3.7, Magnesium 1.9, Total Bilirubin 1.4 H, AST 61 H, ALT 50, Alkaline Phosphatase 187 H, Total Creatine Kinase 64, Troponin I 0.02 D, Total Protein 7.9, Albumin 3.7, Globulin 4.1, Albumin/Globulin Ratio 0.9 L, Lipase 460 H 05/26/17 12:40: PT 13.3 H, INR 1.15 H, APTT 30.9 05/26/17 12:40: WBC 4.8, RBC 3.27 L, Hgb 10.7 L D, Hct 30.0 L, MCV 91.7, MCH 32.7, MCHC 35.7, RDW 16.2 H, Plt Count 89 L, MPV 12.7 H, Gran % 57.3, Lymph % ( Auto) 25.2, Carter % (Auto) 13.8 H, Eos % (Auto) 2.9, Baso % (Auto) 0.8, Gran # 2.73, Lymph # (Auto) 1.2, Carter # (Auto) 0.7 H, Eos # (Auto) 0.1, Baso # (Auto) 0.04 05/26/17 12:24: POC Glucose (mg/dL) 279 H I have reviewed the lab results: Yes - RAD Interpretation Radiology Orders: 05/26/17 12:40 CHEST PORTABLE [RAD] Stat 05/26/17 12:41 HEAD W/O CONTRAST [CT] Stat - Medication Orders Current Medication Orders: Discontinued Medications Sodium Chloride (Sodium Chloride 0.9%) 1,000 mls @ 999 mls/hr IV .Q1H1M STA Stop: 05/26/17 14:18 Last Admin: 05/26/17 13:33 Dose: 999 mls/hr eMAR Start Stop Document 05/26/17 13:33 LA (Rec: 05/26/17 13:36 NANCY [id number]) Intravenous Solution Start Date 05/26/17 Start Time 13:36 Insulin Human Regular (Humulin R) 6 units IVP STAT STA Stop: 05/26/17 14:36 Last Admin: 05/26/17 14:45 Dose: 6 units MAR Blood Glucose Document 05/26/17 14:45 LA (Rec: 05/26/17 14:45 LA [id number]) Blood Glucose Finger Stick Blood Glucose (70-120) 327 IVP Administration Document 05/26/17 14:45 LA (Rec: 05/26/17 14:45 LA [id number]) Charges for Administration # of IVP Administrations 1 NIHSS Scale ([place]) Time Performed: 14:53 - How Severe is the Stoke Baseline Level of Consciousness: 0=Alert LOC to Questions: 0=Both comments correct LOC to commands: 0=Obeys both correctly Best Gaze: 0=Normal Visual: 0=No visual loss Facial: 0=Normal Motor Arm - Left: 0=No drift Motor Arm - Right: 0=No drift Motor Leg - Left: 0=No drift Motor Leg - Right: 0=No drift Limb Ataxia: 0=Absent Sensory: 0=Normal Best Language: 0=No aphasia Dysarthia: 0=Normal articulation Extinction & Inattention (Neglect): 0=Normal, no object Score: 0 Risk Level: No Stroke Risk rTPA Inclusion/Exclusion - Refusal of Treatment Patient Refused Treatment: No - Inclusion Criteria for Altepase Patient is 18 years or Older: Yes The Clinical Diagnosis of Ischemic Stroke That is Causing a Potentially Disabling Neurological Deficit: No Time of Onset is Well Established to be Less Than 270 Minute Before Treatment Would Begin: No Risk/Benefit Discussed With Patient/Family Member Present: No - Scribe Statement The provider has reviewed the documentation as recorded by the Scribe Rosalba Jolly Provider Scribe Attestation: All medical record entries made by the Scribe were at my direction and personally dictated by me. I have reviewed the chart and agree that the record accurately reflects my personal performance of the history, physical exam, medical decision making, and the department course for this patient. I have also personally directed, reviewed, and agree with the discharge instructions and disposition. Disposition/Present on Arrival - Present on Arrival Any Indicators Present on Arrival: No History of DVT/PE: Yes History of Uncontrolled Diabetes: Yes Urinary Catheter: No History of Decub. Ulcer: No History Surgical Site Infection Following: None - Disposition Have Diagnosis and Disposition been Completed?: Yes Diagnosis: Hyperglycemia, Altered mental status, ESRD (end stage renal disease) on dialysis Disposition: HOSPITALIZED Disposition Time: 14:37 Patient Plan: Observation Patient Problems: Current Active Problems Problem Status Onset Hyperglycemia Acute Altered mental status Acute ESRD (end stage renal disease) on dialysis Acute Condition: FAIR Referrals: Jim Reyes MD [Primary Care Provider] - Follow up with primary Forms: [employer] ([place])
[2017-05-26 12:55] LABS: BASO # 0.04 K/mm3 (0.0-2.0); BASO % 0.8 % (0.0-3.0); EOS # 0.1 (0.0-0.7); EOS % 2.9 % (1.5-5.0); GRAN # 2.73 (1.4-6.5); GRAN % 57.3 % (50.0-68.0); HEMOGLOBIN 10.7 g/dL (14.0-18.0); LYMPH # 1.2 (1.2-3.4); LYMPH % 25.2 % (22.0-35.0); MEAN CELL VOLUME 91.7 fl (80.0-105.0); MEAN CORPUSCULAR HEMOGLOBIN 32.7 pg (25.0-35.0); MEAN CORPUSCULAR HGB CONC 35.7 g/dl (31.0-37.0); MEAN PLATELET VOLUME 12.7 fl (7.0-11.0); MONO # 0.7 (0.1-0.6); MONO % 13.8 % (1.0-6.0); RBC 3.27 10^6/uL (3.5-6.1); RED CELL DISTRIBUTION WIDTH 16.2 % (11.5-14.5); WHITE BLOOD COUNT 4.8 10^3/ul (4.5-11.0)
[2017-05-26 13:07] LABS: INR 1.15 (0.93-1.08); PARTIAL THROMBOPLASTIN TIME 30.9 Seconds (25.1-36.5); PROTHROMBIN TIME 13.3 SECONDS (9.4-12.5)
[2017-05-26 13:08] LABS: ACETAMINOPHEN < 10.0 ug/ml (10.0-20.0); SALICYLATE 1 mg/dL (2.0-20.0)
--- NOTE | 2017-05-26 13:11 | RAD ---
HISTORY: altered COMPARISON: 03/16/2017 FINDINGS: LUNGS: No infiltrate. A amorphous opacities bilateral consistent with calcified pleural plaque. There is also calcified pleural plaque along the diaphragmatic pleural surface bilaterally. Consistent with asbestos related pleural disease. PLEURA: No significant pleural effusion identified, no pneumothorax apparent. CARDIOVASCULAR: Normal heart size. No congestive change. Central dialysis catheter noted. OSSEOUS STRUCTURES: No significant abnormalities. VISUALIZED UPPER ABDOMEN: Normal. OTHER FINDINGS: None. IMPRESSION: No active disease.
[2017-05-26 13:13] LABS: ALB/GLOB RATIO 0.9 (1.1-1.8); ALBUMIN 3.7 g/dL (3.0-4.8)
[2017-05-26 13:14] LABS: VENOUS BLOOD GAS BASE EXCESS 3.1 mmol/L (0.0-2.0); VENOUS BLOOD GAS PO2 45 mm/Hg (30-55); VENOUS BLOOD PH 7.37 (7.32-7.43)
[2017-05-26 13:17] LABS: TROPONIN I 0.02 ng/mL
[2017-05-26] MEDS ORDERED: Sodium Chloride 0.9% 1,000 ML IV STA ×2 (13:18→13:39)
[2017-05-26 13:58] LABS: URINE BILIRUBIN NEGATIVE (NEGATIVE); URINE BLOOD TRACE-INTACT (NEGATIVE); URINE COLOR YELLOW (YELLOW); URINE GLUCOSE (UA) >=1000 mg/dL (NEGATIVE); URINE LEUKOCYTE ESTERASE TRACE Leu/uL (NEGATIVE); URINE PROTEIN 30 mg/dL (<30 mg/dL)
[2017-05-26 13:59] LABS: URINE APPEARANCE CLEAR (CLEAR)
--- NOTE | 2017-05-26 14:08 | CT ---
PROCEDURE: CT HEAD WITHOUT CONTRAST. HISTORY: altered COMPARISON: 11/10/2016 TECHNIQUE: Axial computed tomography images were obtained through the head/brain without intravenous contrast. Radiation dose: Total exam DLP = 838 mGy-cm. This CT exam was performed using one or more of the following dose reduction techniques: Automated exposure control, adjustment of the mA and/or kV according to patient size, and/or use of iterative reconstruction technique. FINDINGS: HEMORRHAGE: No intracranial hemorrhage. BRAIN: No mass effect or edema. No atrophy or chronic microvascular ischemic changes. VENTRICLES: Unremarkable. No hydrocephalus. CALVARIUM: Unremarkable. PARANASAL SINUSES: Unremarkable as visualized. No significant inflammatory changes. MASTOID AIR CELLS: Unremarkable as visualized. No inflammatory changes. OTHER FINDINGS: None. IMPRESSION: No acute findings
[2017-05-26] MEDS ORDERED: Insulin Regular 1 UNITS/0.01 ML ML IVP STA (14:35)
[2017-05-26 16:50] LABS: VENOUS BLOOD GAS BASE EXCESS 3.5 mmol/L (0.0-2.0); VENOUS BLOOD GAS PO2 42 mm/Hg (30-55)
[2017-05-26] MEDS ORDERED: Pneumococcal 23-Valent Vaccine IM ONE (23:14)
[2017-05-26] MEDS ORDERED: Influenza Vaccine 60 mcg/0.5 mL SYR (4YR UP) IM ONE (23:14)
--- NOTE | 2017-05-27 05:51 | HP ---
CHIEF COMPLAINT: Weakness, altered mental status, bizarre, confusion, and almost combative state at home. HISTORY OF PRESENT ILLNESS: This is a 72-year-old man, known to our office for several years with very difficult last two years who had multiple hospitalizations related to worsening and now endstage renal disease, osteomyelitis in the toe, congestive heart failure with volume overload, coronary artery disease with acute MO, who presented to the emergency room at the insistence of his family after bizarre behavior at home, combative and confused. The patient was apparently well on Tuesday, Tuesday, and Tuesday of this week. Tuesday evening, he did not eat well, woke up early as he usually does, Tuesday morning for dialysis at 4:00 a.m. He went to dialysis and upon returning home was just not his usual self. He was sleepy and a bit confused into the following day, which was today. He was talking bizarre things, argumentative, is not violent but confused. Family brought him to the emergency room. Evaluation was done in the ER. He was felt to be clinically dry, and he received a liter of fluids. Upon my arrival to the ER several hours later, the patient was quite awake. The family was amazed that he had returned almost completely normal to his usual baseline state, and again, this confirms their suspicion that much of this was related to hypovolemia and perhaps hypotension after dialysis. PAST MEDICAL HISTORY: Significant for coronary artery disease, diabetes, asbestosis, macular degeneration, mitral valve murmurs, history or renal colic, deep venous thrombosis, hypertension, hypothyroidism, endstage renal disease, osteomyelitis of the toe, and cirrhosis with ascites. PAST SURGICAL HISTORY: Significant for cataract surgery, cholecystectomy, hernia repair, total knee replacement, colon polyp resection, and cardiac ablation for SVT. SOCIAL HISTORY: He no longer smokes, but has a history of tobacco use. He is . He does not drink alcohol. Trying his best to follow a diabetic diet. ALLERGIES: HE HAS NO KNOWN ALLERGIES TO MEDICATIONS. REVIEW OF SYSTEMS: Significant for pain related to arthritis, generalized weakness related to dialysis, cirrhosis, ascites, and all the diagnoses as outlined above. PHYSICAL EXAMINATION: GENERAL: The patient was seen in the emergency room, slot #8 this evening, resting comfortably in the stretcher with his , sister -RN, and son at the bedside. He is awake and alert, in rather good spirits, recognizes his name, answers questions appropriately, and realizes how confused he was earlier today with good recall and insight. HEAD AND NECK: Unremarkable. Conjunctivae are pink. Mucous membranes are moist. Neck is supple, overweight without masses. LUNGS: Show good aeration, right and left. HEART: Regular, but not tachycardic. ABDOMEN: Obese, distended, and protuberant with ascites present. EXTREMITIES: Rather thin with no edema. Dorsalis pedis and posterior tibial pulses are much decreased. IMPRESSION: 1. Altered mental status due to hypovolemic status post dialysis. 2. Hypovolemic status post dialysis. 3. End-stage renal disease. 4. Status post recent hospitalization for volume overload and anasarca. 5. Cirrhosis with ascites. 6. Coronary artery disease. 7. Diabetes. 8. Status post osteomyelitis of the toe, now finished home intravenous antibiotics. 9. History of hypertension. 10. Peripheral artery disease. 11. History of volume overload, congestive heart failure, and anasarca. Berto Reyes MD MTDJessica
[2017-05-27 06:53] LABS: BASO # 0.05 K/mm3 (0.0-2.0); BASO % 1.1 % (0.0-3.0); EOS # 0.2 (0.0-0.7); EOS % 3.4 % (1.5-5.0); GRAN # 2.2 (1.4-6.5); GRAN % 49.4 % (50.0-68.0); LYMPH # 1.5 (1.2-3.4); LYMPH % 32.6 % (22.0-35.0); MEAN CELL VOLUME 91.3 fl (80.0-105.0); MEAN CORPUSCULAR HEMOGLOBIN 32.2 pg (25.0-35.0); MEAN CORPUSCULAR HGB CONC 35.2 g/dl (31.0-37.0); MEAN PLATELET VOLUME 12.5 fl (7.0-11.0); MONO # 0.6 (0.1-0.6); MONO % 13.5 % (1.0-6.0); RBC 3.11 10^6/uL (3.5-6.1); RED CELL DISTRIBUTION WIDTH 16.3 % (11.5-14.5); WHITE BLOOD COUNT 4.5 10^3/ul (4.5-11.0)
[2017-05-27 07:42] LABS: CALCIUM 9.5 mg/dL (8.4-10.5)
[2017-05-27] MEDS: Insulin Reg-MEDIUM-Coverage SC SCH ×4 (08:39→21:38)
[2017-05-27] MEDS: Levothyroxine 100 MCG TAB PO SCH (08:39)
[2017-05-27] MEDS: Pantoprazole 20 mg EC Tab PO SCH (10:13)
--- NOTE | 2017-05-27 10:33 | CARD ---
APPROVED REPORT EKG Measurement Heart [id number] CT [id number] <Conclusion> Sinus rhythm with 1st degree AV block Nonspecific ST and T wave abnormality Prolonged QT Artifact present No change
[2017-05-28] MEDS: Levothyroxine 100 MCG TAB PO SCH (08:20)
[2017-05-28] MEDS: Insulin Reg-MEDIUM-Coverage SC SCH ×4 (08:21→21:59)
[2017-05-28] MEDS: Pantoprazole 20 mg EC Tab PO SCH (09:17)
[2017-05-28 10:51] LABS: T4 11.6 ug/dL (5.5-11.0)
[2017-05-28] MEDS ORDERED: Insulin Reg-MEDIUM-Coverage SC ONE (17:20)
[2017-05-28] MEDS ORDERED: Insulin Regular 1 UNITS/0.01 ML ML SC ONE (17:26)
--- NOTE | 2017-05-28 20:54 | CON ---
DATE: 05/28/[address] Jim Reyes and Dr. Berto Reyes. REFERRING MD: Dr. Reyes. REASON FOR CONSULTATION: To provide dialysis services for patient admitted with an altered mental status. HISTORY OF PRESENT ILLNESS: Patient is a pleasant 72-year-old white male known to me for several years. History of end-stage renal disease, history of NIDDM, diabetic nephropathy, history of hypertension, history of cirrhosis with ascites with past history of high ammonia levels, history of osteomyelitis of his left fourth toe, off IV antibiotic therapy, on topical antibiotic therapy, history of anemia, history of hypothyroidism, secondary hyperparathyroidism, history of ASHD, status post multivessel coronary artery disease, status post PTCA stents, ejection fraction 64%, history of LVH, history of mild valvular heart disease, /AI/MR/TR with pulmonary hypertension. Patient, according to his , became altered and confused at home. There were no episodes of hypoglycemia. If anything, he was mildly hyperglycemic. Patient's ammonia level in the emergency room was within an acceptable range. There was no evidence for infection. There were no metabolic derangements; he is well dialyzed. He did take an Ambien tablet, but it was not certain whether that was the cause of his disorientation and altered mental status. Patient was admitted to the hospital; he received dialysis yesterday. He is currently on telemetry. He is essentially back to baseline, but it is puzzling to both his and him as to why the episode happened. We are asked to evaluate the patient to provide dialysis services. PAST MEDICAL HISTORY: Significant for that of end-stage renal disease, on chronic maintenance hemodialysis Tuesday, Tuesday, Tuesday at [facility]. NIDDM, on insulin therapy. Hypertension, history of cirrhosis with past history of high ammonia levels. History of osteomyelitis, left fourth toe. History of anemia secondary to chronic kidney disease. History of ASHD, status post multivessel coronary artery disease, status post PTCA and stents, LVH, ejection fraction 64%, /AI/MR/TR with pulmonary hypertension. History of hypothyroidism, history of secondary hyperparathyroidism. History of hyperlipidemia. MEDICATIONS AT HOME: Include that of Altace, Protonix, Nitrostat, Toprol, Synthroid, lactulose, insulin 70/30, Neurontin, Plavix, vitamin D, PhosLo, Ecotrin and alpha lipoic acid. ALLERGIES: NO KNOWN ALLERGIES TO MEDICATIONS. CURRENT MEDICATIONS IN HOSPITAL: Include that of Altace, Ecotrin, lactulose, insulin, Lopressor, Neurontin, PhosLo, Plavix, Protonix, and Synthroid. SOCIAL HISTORY: Past history of cigarette smoking, now with an occasional cigar. Most recently no cigarettes or cigars. No history of alcohol use. No history of substance abuse. FAMILY HISTORY: Noncontributory as per old charts. REVIEW OF SYSTEMS: GENERAL: According to his , his weight is down about 20 to 25 pounds since the start of dialysis, but currently stable. ENT: Denies any hearing or visual problems. PULMONARY: No shortness of breath. No symptomatic COPD, emphysema, or bronchitis. No pneumonias. CARDIAC: History of ASHD, status post PTCA and stents, on Plavix therapy. GASTROINTESTINAL: History of cirrhosis. No nausea, no vomiting, abdominal pain, diarrhea, or constipation. GENITOURINARY: Patient still makes urine, positive end-stage renal disease. ENDOCRINE: No history of diabetes or diabetic nephropathy, diabetic neuropathy. History of secondary hyperparathyroidism. MUSCULOSKELETAL: No complaints. NEUROLOGIC: No past history of CVA, TIA, seizures, or syncope. Altered mental status as noted above. HEMATOLOGY AND ONCOLOGY: History of anemia secondary to chronic kidney disease. PSYCHIATRIC: History is negative. PHYSICAL EXAMINATION: GENERAL: Patient is currently seen on telemetry, sitting up in bed, his and sister in the room. No acute distress. Patient appears to be back to myself. VITAL SIGNS: Blood pressure 120/80, temperature 97.8, respiratory rate 20 with a pulse of 63, pulse ox is 94%. HEENT: Shows him to be normocephalic, atraumatic. Conjunctivae are pale. Sclerae nonicteric. Pupils equal and reactive light and accommodation. Extraocular muscles are intact. Posterior pharynx is normal. NECK: Supple. No neck vein distention or thyromegaly. No lymphadenopathy. No bruits. CHEST: Clear to auscultation and percussion. No rales, rhonchi, or wheezing. Positive PermCath, right chest wall. CARDIOVASCULAR: Shows a regular rate and rhythm with /AI/MR/TR. No S3, no S4, no rub. Distal lower extremity pulses are reduced at 1+ bilaterally. ABDOMEN: Soft. Bowel sounds normal. No rebound, guarding, or masses. No ascites. BACK: No CVAT. No spinal tenderness. EXTREMITIES: Show no cyanosis, no clubbing, no edema. Distal lower extremity pulses are reduced. NEUROLOGIC: Shows him to be alert, oriented x3 with no gross focal motor or sensory deficits noted. IMAGING STUDIES: Head CT on admission showed no acute findings. Chest x-ray on admission showed no acute pulmonary disease. LABORATORY DATA: CBC: White blood cell count 4.5, hemoglobin 10 to 10.7, platelet count is low at 89,000 to 93,000. Coags: PT 13.3 with a PTT of 30.9. Blood gas: 7.40 with a pO2 of 42 and a pCO2 of 31; likely venous blood gas. Chemistries: Predialysis labs yesterday showed a BUN of 33 with a creatinine of 2.8. Glucose is 260. Highest glucose yesterday was 415. No hypoglycemia noted. Electrolytes are normal. Calcium 9.5, phosphorus 4 with a magnesium of 1.8. Ammonia level was 32 on admission, within normal range. Liver enzymes showed a bilirubin of 1.4 with mild elevation of his AST at 61 and alkaline phosphatase of 187. Urine showed 6 to 8 white blood cells per high-power field with trace protein in the urine. Salicylates were 1. Acetaminophen level less than 10. Alcohol, quantitated, was less than 10. Microbiology: Urine cultures were negative. Blood cultures were negative at 24 hours. ASSESSMENT: 1. Altered mental status, etiology is entirely unclear. Perhaps this is secondary to taking Ambien, but this is not certain. There were no documented hypoglycemic episodes of anything. The patient has been mildly hyperglycemic. His ammonia level is normal given his history of cirrhosis. He appears to be well dialyzed, so metabolically he appears to be at baseline. No evidence for infection. Presently, all cultures are negative. No falls. No head trauma. Head CT scan was negative. Patient will likely be monitored over the next day or so in the hospital. I have asked him to try and avoid Ambien use at home. He is not receiving Ambien in the hospital. 2. End-stage renal disease. Patient will continue Tuesday, Tuesday, Tuesday dialysis. Next dialysis is scheduled for 05/30. 3. History of non-insulin dependent diabetes mellitus, currently on insulin. Patient will continue to be monitored closely. We will try and keep him as close to euglycemia as possible without allowing him to become hypoglycemic. 4. History of hypertension. Blood pressure control is acceptable on current medication. 5. History of cirrhosis with past history of high ammonia levels. This appears to be stable. No ascites on exam. 6. Osteomyelitis of his left fourth toe. Patient has completed a course of IV antibiotic therapy and according to his , he is receiving topical antibiotics. 7. History of anemia secondary to chronic kidney disease, stable. 8. History of hypothyroidism, on thyroid replacement therapy. 9. History of secondary hyperparathyroidism. Patient will continue on binder therapy and a renal diet. 10. History of atherosclerotic heart disease, status post multivessel coronary artery disease, status post percutaneous transluminal coronary angioplasty and stent. Patient is receiving Plavix, hence he cannot have an arteriovenous fistula created. 11. History of aortic stenosis/aortic insufficiency/mitral regurgitation/tricuspid regurgitation with left ventricular hypertrophy and pulmonary hypertension, all stable. PLAN: 1. Discussed with patient, patient's , and patient's sister. No obvious etiology for his altered mental status unless secondary to perhaps using Ambien at home. 2. Continue to monitor patient on telemetry, perhaps for the next 24 to 48 hours. 3. Next dialysis will be on Tuesday. If patient remains an inpatient, this could be done in the inpatient unit. Otherwise, patient will receive dialysis at [facility]. 4. Continue to monitor labs closely. 5. Follow sugars closely. 6. Avoid any hypotension with dialysis. 7. We will continue to follow the patient with you closely during the hospitalization. 8. We would keep patient on telemetry. Thank you for letting me partake and share in the care of our mutual patient. Manpreet Dalton MD
[2017-05-29 00:50] VITALS: O2SAT 99
[2017-05-29] MEDS: Levothyroxine 100 MCG TAB PO SCH (07:49)
[2017-05-29] MEDS: Insulin Reg-MEDIUM-Coverage SC SCH ×2 (07:49→11:55)
[2017-05-29] MEDS: Pantoprazole 20 mg EC Tab PO SCH (10:21)
[2017-05-29 11:56] VITALS: BP 148/65; PULSE 59; RESP 18; TEMP 97.9
[2017-05-29] MEDS ORDERED: Insulin Regular 1 UNITS/0.01 ML ML SC ONE (12:55)
--- NOTE | 2017-05-29 14:52 | PN ---
DATE: SUBJECTIVE: The patient is currently seen sitting at the side of bed. His sister and were in the room. The patient states he has had an uneventful last 24 hours. The patient states he could possibly be discharged home later today. Perhaps, his mental status changes were in part secondary to the fluctuating sugars. There does not appear to be anything from a hemodialysis standpoint that might have caused this altered mental status issue. His glucose levels have ranged anywhere from the low 400s down as low as 244, clearly not as well controlled as the patient would like to see. MEDICATIONS: Medication list reviewed. The patient is currently on Altace, Ecotrin, Enulose, insulin, Lopressor, Neurontin, PhosLo, Plavix, Protonix and Synthroid. OBJECTIVE: INTAKE/OUTPUT: Intake 480, output 325. VITAL SIGNS: Blood pressure 109/43, temperature 97.8, respiratory rate is 19 with a pulse of 63. HEENT: Shows him to be normocephalic, atraumatic. Conjunctivae are pale. Sclerae are nonicteric. NECK: Supple. No neck vein distention. CHEST: Clear to auscultation and percussion. No rales, rhonchi or wheezing. Positive PermCath, right chest wall. CARDIOVASCULAR: Shows a regular rate and rhythm with /AI/MR/TR. ABDOMEN: Soft. Bowel sounds normal. No rebound. No guarding. No masses. No ascites. EXTREMITIES: Show no cyanosis, clubbing or edema. NEURO: Shows him to be alert, oriented and back to baseline. LABORATORY DATA: Last fasting sugar was 231. No recent chemistries were done. Last CBC showed a hemoglobin of 10.0. White blood cell count 4.5, platelet count of 93,000 dating back to 05/27/2017. Microbiology: Blood cultures are negative at 48 hours. Urine cultures are negative. ASSESSMENT: 1. Altered mental status, etiology is not completely clear to me. No evidence for hepatic encephalopathy. I do not feel this is dialysis related. Hemodynamically, the patient does appear to be stable. Perhaps related to fluctuating sugars, but that is also not completely clear to me. There is no evidence for sepsis or infection. All cultures are negative. Perhaps secondary to the patient's use of Ambien. He will avoid this sleeping pill at home. 2. End-stage renal disease. The patient will continue Tuesday, Tuesday, Tuesday dialysis. If the patient leaves today, he will have dialysis in the outpatient unit. 3. History of ptr-[id number] diabetes mellitus, currently on insulin. The patient will likely need adjustment of his insulin to help better control of his sugar levels. 4. Hypertension. Blood pressure control is acceptable on current meds. If anything, he is in the low range of normal. 5. History of anemia secondary to chronic kidney disease, stable. 6. Status post osteomyelitis of his left fourth toe. The patient has completed a course of IV antibiotic therapy. 7. History of cirrhosis with past history of high ammonia levels. Ammonia levels are presently acceptable. The patient remains on low-dose lactulose therapy. 8. History of secondary hyperparathyroidism. The patient will continue binder therapy and a renal diet. 9. History of atherosclerotic heart disease, status post multivessel coronary artery disease, status post percutaneous transluminal coronary angioplasty and stents. The patient remains on Plavix, hence he could not have an arteriovenous fistula created at this time. 10. History of valvular heart disease, currently stable. History of pulmonary hypertension with left ventricular hypertrophy, currently stable. PLAN: 1. The patient will be followed and seen by Dr. Reyes later today. Perhaps discharge home. 2. Perhaps adjustment of his insulin to achieve better sugar control. 3. The patient will continue routine dialysis treatments either as an inpatient tomorrow or at the outpatient unit. 4. No other change in medication. Manpreet Dalton MD
== END 2017-05-29 15:30 | disposition home or self-care (01) | DRG 637 ==
LOC: ED 12:12 → ERH 14:33 → 2RNO 21:57 → OBSVTOIN 05-27 15:46
PROVIDERS: ADMIT Internal Medicine; ATTEND Internal Medicine
DX: E11.65 Type 2 diabetes mellitus with hyperglycemia (principal); N18.6 End stage renal disease; I13.2 Hypertensive heart and chronic kidney disease with heart failure and with stage 5 chronic kidney disease, or end stage renal disease; E11.21 Type 2 diabetes mellitus with diabetic nephropathy; E11.51 Type 2 diabetes mellitus with diabetic peripheral angiopathy without gangrene; E11.69 Type 2 diabetes mellitus with other specified complication; I08.3 Combined rheumatic disorders of mitral, aortic and tricuspid valves; I27.20 Pulmonary hypertension, unspecified; M86.9 Osteomyelitis, unspecified; R18.8 Other ascites; N25.81 Secondary hyperparathyroidism of renal origin; R41.82 Altered mental status, unspecified; T42.6X5A Adverse effect of other antiepileptic and sedative-hypnotic drugs, initial encounter; E11.22 Type 2 diabetes mellitus with diabetic chronic kidney disease; E78.5 Hyperlipidemia, unspecified; E03.9 Hypothyroidism, unspecified; E86.1 Hypovolemia; D63.1 Anemia in chronic kidney disease; F17.290 Nicotine dependence, other tobacco product, uncomplicated; H35.30 Unspecified macular degeneration; I50.9 Heart failure, unspecified; I25.10 Atherosclerotic heart disease of native coronary artery without angina pectoris; J61 Pneumoconiosis due to asbestos and other mineral fibers; K74.60 Unspecified cirrhosis of liver; Z79.02 Long term (current) use of antithrombotics/antiplatelets; Z86.010 Personal history of colon polyps; Z90.49 Acquired absence of other specified parts of digestive tract; Z95.5 Presence of coronary angioplasty implant and graft; Z96.653 Presence of artificial knee joint, bilateral; Z99.2 Dependence on renal dialysis; R40.2412 Glasgow coma scale score 13-15, at arrival to emergency department; I44.0 Atrioventricular block, first degree; Z86.718 Personal history of other venous thrombosis and embolism; Z98.49 Cataract extraction status, unspecified eye

== ENCOUNTER 2017-06-09 21:17 | Inpatient (IN) | payer MEDICARE, OTHER ==
[2017-06-09 21:22] VITALS: BMI 31.4
--- NOTE | 2017-06-09 21:41 | ED PDOC ---
Arrival/HPI - General Chief Complaint: Weakness/Neurological Deficit Time Seen by Provider: 06/09/17 21:19 - History of Present Illness Narrative History of Present Illness (Text): 72 year old male, whose past medical history includes hypertension and ESRD with hemodialysis on M//, BIBEMS accompanied by family for altered mental status. reports patient was fatigued after dialysis yesterday like normal, came home alert however but then took nap at 2pm, and when he awoke at 4pm yesterday (30+ hours ago), he was confused, unable to administer his insulin. Denies focal weakness. denies any fever, chills, nausea, vomiting, dyspnea , diarrhea, abdominal pain, urinary symptoms, chest pain, shortness of breath, cough, runny nose or any other complaints. Patient with similar presentation 2 weeks ago, just discharged 1 week ago, improved to normal during hospital stay but etiology of AMS not found. PMD: Dr. Jim Reyes Past Medical History - Infectious Disease Hx of Infectious Diseases: None - Cardiac Hx Cardiac Arrhythmia: Yes (a fib) Hx Congestive Heart Failure: Yes Hx Hypertension: Yes Hx Pacemaker: No Hx Peripheral Edema: Yes (ble +1 pitting) Other/Comment: cellulitis b/l feet red warm dry skin - Pulmonary Hx Respiratory Disorders: Yes (asbestosis) - Neurological Hx Neurological Disorder: No - HEENT Hx HEENT Disorder: Yes Hx Macular Degeneration: Yes - Renal Type of Dialysis Access: R chest udall Date of Last Dialysis Treatment: 06/08/17 - Endocrine/Metabolic Hx Endocrine Disorders: Yes Hx Diabetes Mellitus Type 2: Yes Hx Hypothyroidism: Yes - Hematological/Oncological Hx Blood Disorders: No Other/Comment: chronic high ammonia level - Integumentary Hx Dermatological Disorder: Yes Other/Comment: B/L leg erythema. Edema +1 B/L, red dry skin - Musculoskeletal/Rheumatological Hx Falls: No - Gastrointestinal Hx Gastrointestinal Disorders: No - Genitourinary/Gynecological Hx Genitourinary Disorders: No Other/Comment: Chronic elevated Ammonia level - Psychiatric Hx Psychophysiologic Disorder: No Hx Emotional Abuse: No Hx Physical Abuse: No Hx Substance Use: No - Surgical History Hx Cholecystectomy: Yes Other/Comment: hernia repair, b/l total knee replacement 1996, 2001, left pigtail stent, r elbow sx, rcw hd cath, ablation, [facility] x5 - Anesthesia Hx Anesthesia Reactions: No - Suicidal Assessment Feels Threatened In Home Enviroment: No Family/Social History Family/Social History: No Known Family HX Smoking Status: Former Smoker Hx Alcohol Use: No Hx Substance Use: No Allergies/Home Meds Allergies/Adverse Reactions: Allergies No Known Allergies Allergy (Verified 05/26/17 12:26) Home Medications: Home Meds Medication Instructions Recorded Confirmed Levothyroxine [Synthroid] 88 mcg PO DAILY 02/17/17 06/09/17 Metoprolol Succinate [Toprol XL] 50 mg PO DAILY 02/17/17 06/09/17 Cholecalciferol [Vitamin D 1000 IU] 2,000 mg PO DAILY 03/12/17 06/09/17 Insulin Aspart Prot/Insuln Asp 25 unit SC BID 03/12/17 06/09/17 [Novolog Mix 70-30 Vial] Clopidogrel [Plavix] 75 mg PO DAILY 04/19/17 06/09/17 Lactulose [Generlac] 10 ml PO DAILY 04/19/17 06/09/17 Nitroglycerin [Nitrostat] 0.4 mg SL PRN PRN 04/19/17 06/09/17 Ramipril [Altace] 1.25 mg PO DAILY 04/19/17 06/09/17 Alpha Lipoic Acid 600 mg PO BID 05/26/17 06/09/17 Calcium Acetate [Phoslo] 667 mg PO TID 05/26/17 06/09/17 Review of Systems - Review of Systems Systems not reviewed;Unavailable: Altered Mental Status Physical Exam - Physical Exam Narrative Physical Exam (Text): Head: Present: Atraumatic, Normocephalic Pupils: Present: Constricted Extroacular Muscles: Present: EOMI Conjunctiva: Present: Normal Mouth: Present: Moist Mucous Membranes Neck: Present: Normal Range of Motion. No: Meningeal Signs Respiratory/Chest: Present: Clear to Auscultation, Good Air Exchange, Other ( dialysis cath to right chest wall). No: Respiratory Distress, Accessory Muscle Use Cardiovascular: Present: Regular Rate and Rhythm, Normal S1, S2. +Murmur Abdomen: Present: No: Tenderness, Distention, Peritoneal Signs Upper Extremity: Present: Normal Inspection, Normal ROM, Neurovascularly Intact. No: Cyanosis, Edema Lower Extremity: Present: Normal Inspection, Normal ROM, Neurovascularly Intact. No: Mild pitting edema Neurological: No focal deficit. Follows commands. Skin: Present: Warm, Dry, Normal Color. No: Rashes Psychiatric: Present: Drowsy, oriented x 1 (does not answer time and place, just repeats his name.) Vital Signs Temp Pulse Resp BP Pulse Ox 06/09/17 21:33 97.8 F 76 18 136/82 99 Finger Stick Blood Glucose: 244 Medical Decision Making ED Course and Treatment: 06/09/17 21:52: Chest X-ray read and interpreted by me shows no change from previous. EKG 70 bpm, no ST elevations, LAD 06/09/17 23:13 Ammonia found to be 225, lactulose ordered. Dr. Reyes accepts admission to his service, STAT consult placed for Renal Dr. Dalton. - Lab Interpretations Lab Results: 06/09/17 22:00 06/09/17 22:00 Lab Results 06/09/17 22:30: Urine Color Yellow, Urine Appearance Clear, Urine pH 8.0, Ur Specific Crane 1.010, Urine Protein 30 H, Urine Glucose (UA) >=1000, Urine Ketones Negative, Urine Blood Trace-intact H, Urine Nitrate Negative, Urine Bilirubin Negative, Urine Urobilinogen 1.0 H, Ur Leukocyte Esterase Negative, Urine RBC 1 - 3, Urine WBC 0 - 2, Ur Epithelial Cells 0 - 2, Urine Bacteria Trace 06/09/17 22:00: Ammonia 225 H* 06/09/17 22:00: Sodium 140, Potassium 3.8, Chloride 102, Carbon Dioxide 25, Anion Gap 17, BUN 33 H, Creatinine 2.6 H, Est GFR ( Amer) 29, Est GFR ( Non-Af Amer) 24, Random Glucose 245 H, Calcium 10.4, Total Bilirubin 1.4 H, AST 68 H, ALT 34, Alkaline Phosphatase 223 H, Total Protein 8.2, Albumin 3.8, Globulin 4.4, Albumin/Globulin Ratio 0.9 L 06/09/17 22:00: PT 12.7 H, INR 1.11 H, APTT 30.4 06/09/17 22:00: WBC 5.0, RBC 3.55, Hgb 11.7 L, Hct 31.4 L, MCV 88.5, MCH 33.0, MCHC 37.3 H, RDW 15.9 H, Plt Count 94 L, MPV 11.8 H, Gran % 57.7, Lymph % (Auto ) 25.9, [place] % (Auto) 12.2 H, Eos % (Auto) 3.6, Baso % (Auto) 0.6, Gran # 2.90, Lymph # (Auto) 1.3, [place] # (Auto) 0.6, Eos # (Auto) 0.2, Baso # (Auto) 0.03 - RAD Interpretation Radiology Orders: 06/09/17 21:37 CHEST PORTABLE [RAD] Stat - Medication Orders Current Medication Orders: Lactulose (Generlac) 200 gm NH ONCE ONE Stop: 06/09/17 23:13 Disposition/Present on Arrival - Present on Arrival Any Indicators Present on Arrival: Yes History of DVT/PE: No History of Uncontrolled Diabetes: Yes Urinary Catheter: No History of Decub. Ulcer: No History Surgical Site Infection Following: None - Disposition Have Diagnosis and Disposition been Completed?: Yes Diagnosis: Altered mental status, Metabolic encephalopathy, Hyperammonemia Disposition: HOSPITALIZED Disposition Time: 23:09 Patient Plan: Admission Condition: GUARDED Forms: [employer] (Greek)
[2017-06-09 22:14] LABS: BASO # 0.03 K/mm3 (0.0-2.0); BASO % 0.6 % (0.0-3.0); EOS # 0.2 (0.0-0.7); EOS % 3.6 % (1.5-5.0); GRAN # 2.9 (1.4-6.5); GRAN % 57.7 % (50.0-68.0); HEMOGLOBIN 11.7 g/dL (14.0-18.0); LYMPH # 1.3 (1.2-3.4); LYMPH % 25.9 % (22.0-35.0); MEAN CELL VOLUME 88.5 fl (80.0-105.0); MEAN CORPUSCULAR HGB CONC 37.3 g/dl (31.0-37.0); MEAN PLATELET VOLUME 11.8 fl (7.0-11.0); MONO # 0.6 (0.1-0.6); MONO % 12.2 % (1.0-6.0); RBC 3.55 10^6/uL (3.5-6.1); RED CELL DISTRIBUTION WIDTH 15.9 % (11.5-14.5)
[2017-06-09 22:25] LABS: INR 1.11 (0.93-1.08); PARTIAL THROMBOPLASTIN TIME 30.4 Seconds (25.1-36.5); PROTHROMBIN TIME 12.7 SECONDS (9.4-12.5)
[2017-06-09 22:31] LABS: ALB/GLOB RATIO 0.9 (1.1-1.8); ALBUMIN 3.8 g/dL (3.0-4.8); CALCIUM 10.4 mg/dL (8.4-10.5)
[2017-06-09 22:53] LABS: URINE BILIRUBIN NEGATIVE (NEGATIVE); URINE BLOOD TRACE-INTACT (NEGATIVE); URINE GLUCOSE (UA) >=1000 mg/dL (NEGATIVE); URINE LEUKOCYTE ESTERASE NEGATIVE Leu/uL (NEGATIVE); URINE PROTEIN 30 mg/dL (<30 mg/dL)
[2017-06-09 22:54] LABS: URINE APPEARANCE CLEAR (CLEAR); URINE COLOR YELLOW (YELLOW)
[2017-06-09 22:59] LABS: URINE EPITHELIAL CELLS 0 - 2 /hpf (0-5); URINE WBC 0 - 2 /hpf (0-6)
[2017-06-09 23:00] LABS: URINE BACTERIA TRACE (NEG)
[2017-06-09] MEDS ORDERED: Lactulose 10 gm/15 ml (Rectal Use) PR ONE (23:12)
--- NOTE | 2017-06-10 03:48 | CP.PCM.PN ---
Subjective - Date & Time of Evaluation Date of Evaluation: 06/10/17 Time of Evaluation: 03:46 - Subjective Subjective: Patient was seen at bedside. He was trying to get out of bed. states that he has not been drinking alcohol. Medical record was reviewed. This 72 year old white male is admitted with altered mental status,elevated ammonia level, elevated LFT's. Has PMH of HTN,CHF, atrial fibrillation, cellulitis , chronic elevated ammonia level, total knee replacement. Objective - Vital Signs/Intake and Output Vital Signs (last 24 hours): Temp Pulse Resp BP Pulse Ox 97.2 F L 76 19 165/81 H 99 06/10/17 00:44 06/10/17 00:44 06/10/17 00:44 06/10/17 00:44 06/09/17 21:33 - Labs Labs: PT 12.7 SECONDS (9.4-12.5) H 06/09/17 22:00 INR 1.11 (0.93-1.08) H 06/09/17 22:00 APTT 30.4 Seconds (25.1-36.5) 06/09/17 22:00 Most Recent Lab Values WBC 5.0 10^3/ul (4.5-11.0) 06/09/17 22:00 RBC 3.55 10^6/uL (3.5-6.1) 06/09/17 22:00 Hgb 11.7 g/dL (14.0-18.0) L 06/09/17 22:00 Hct 31.4 % (42.0-52.0) L 06/09/17 22:00 MCV 88.5 fl (80.0-105.0) 06/09/17 22:00 MCH 33.0 pg (25.0-35.0) 06/09/17 22:00 MCHC 37.3 g/dl (31.0-37.0) H 06/09/17 22:00 RDW 15.9 % (11.5-14.5) H 06/09/17 22:00 Plt Count 94 10^3/uL (120.0-450.0) L 06/09/17 22:00 MPV 11.8 fl (7.0-11.0) H 06/09/17 22:00 Gran % 57.7 % (50.0-68.0) 06/09/17 22:00 Lymph % (Auto) 25.9 % (22.0-35.0) 06/09/17 22:00 [place] % (Auto) 12.2 % (1.0-6.0) H 06/09/17 22:00 Eos % (Auto) 3.6 % (1.5-5.0) 06/09/17 22:00 Baso % (Auto) 0.6 % (0.0-3.0) 06/09/17 22:00 Gran # 2.90 (1.4-6.5) 06/09/17 22:00 Lymph # (Auto) 1.3 (1.2-3.4) 06/09/17 22:00 [place] # (Auto) 0.6 (0.1-0.6) 06/09/17 22:00 Eos # (Auto) 0.2 (0.0-0.7) 06/09/17 22:00 Baso # (Auto) 0.03 K/mm3 (0.0-2.0) 06/09/17 22:00 PT 12.7 SECONDS (9.4-12.5) H 06/09/17 22:00 INR 1.11 (0.93-1.08) H 06/09/17 22:00 APTT 30.4 Seconds (25.1-36.5) 06/09/17 22:00 Sodium 140 mmol/L (132-148) 06/09/17 22:00 Potassium 3.8 mmol/L (3.6-5.0) 06/09/17 22:00 Chloride 102 mmol/L (98-107) 06/09/17 22:00 Carbon Dioxide 25 mmol/L (21-33) 06/09/17 22:00 Anion Gap 17 (10-20) 06/09/17 22:00 BUN 33 mg/dL (7-21) H 06/09/17 22:00 Creatinine 2.6 mg/dl (0.8-1.5) H 06/09/17 22:00 Est GFR ( Amer) 06/09/17 22:00 Est GFR (Non-Af Amer) 06/09/17 22:00 Random Glucose 245 mg/dL (70-110) H 06/09/17 22:00 Calcium 10.4 mg/dL (8.4-10.5) 06/09/17 22:00 Total Bilirubin 1.4 mg/dL (0.2-1.3) H 06/09/17 22:00 AST 68 U/L (17-59) H 06/09/17 22:00 ALT 34 U/L (7-56) 06/09/17 22:00 Alkaline Phosphatase 223 U/L (38-126) H 06/09/17 22:00 Ammonia 225 umol/L (9-33) H* 06/09/17 22:00 Total Protein 8.2 g/dL (5.8-8.3) 06/09/17 22:00 Albumin 3.8 g/dL (3.0-4.8) 06/09/17 22:00 Globulin 4.4 gm/dL 06/09/17 22:00 Albumin/Globulin Ratio 0.9 (1.1-1.8) L 06/09/17 22:00 Urine Color Yellow (YELLOW) 06/09/17 22:30 Urine Appearance Clear (CLEAR) 06/09/17 22:30 Urine pH 8.0 (4.7-8.0) 06/09/17 22:30 Ur Specific [place] 1.010 (1.005-1.035) 06/09/17 22:30 Urine Protein 30 mg/dL (<30 mg/dL) H 06/09/17 22:30 Urine Glucose (UA) >=1000 mg/dL (NEGATIVE) 06/09/17 22:30 Urine Ketones Negative mg/dL (NEGATIVE) 06/09/17 22:30 Urine Blood Trace-intact (NEGATIVE) H 06/09/17 22:30 Urine Nitrate Negative (NEGATIVE) 06/09/17 22:30 Urine Bilirubin Negative (NEGATIVE) 06/09/17 22:30 Urine Urobilinogen 1.0 E.U./dL (<1 E.U./dL) H 06/09/17 22:30 Ur Leukocyte Esterase Negative [place]/uL (NEGATIVE) 06/09/17 22:30 Urine RBC 1 - 3 /hpf (0-2) 06/09/17 22:30 Urine WBC 0 - 2 /hpf (0-6) 06/09/17 22:30 Ur Epithelial Cells 0 - 2 /hpf (0-5) 06/09/17 22:30 Urine Bacteria Trace (NEG) 06/09/17 22:30 Urine Opiates Screen No result (NEGATIVE) 06/09/17 22:30 Urine Methadone Screen No result (NEGATIVE) 06/09/17 22:30 Ur Barbiturates Screen No result (NEGATIVE) 06/09/17 22:30 Ur Phencyclidine Scrn No result (NEGATIVE) 06/09/17 22:30 Ur Amphetamines Screen Negative (NEGATIVE) 06/09/17 22:30 U Benzodiazepines Scrn No result (NEGATIVE) 06/09/17 22:30 U Oth Cocaine Metabols No result (NEGATIVE) 06/09/17 22:30 U Cannabinoids Screen No result (NEGATIVE) 06/09/17 22:30 - Constitutional Appears: Other (agitated.) - Head Exam Head Exam: ATRAUMATIC, NORMAL INSPECTION, NORMOCEPHALIC - Eye Exam Eye Exam: Normal appearance - Neck Exam Neck Exam: Normal Inspection - Respiratory Exam Respiratory Exam: NORMAL BREATHING PATTERN - Cardiovascular Exam Cardiovascular Exam: absent: JVD - GI/Abdominal Exam GI & Abdominal Exam: absent: Distended - Rectal Exam Rectal Exam: Deferred - Exam Additional comments: Deferred. - Extremities Exam Extremities Exam: Normal Inspection - Back Exam Back Exam: NORMAL INSPECTION - Neurological Exam Neurological Exam: Altered - Psychiatric Exam Psychiatric exam: Agitated - Skin Skin Exam: Normal Color Assessment and Plan - Assessment and Plan (Free Text) Assessment: Agitation. Altered mental status. Elevated ammonia level. Elevated LFT's. HTN. CHF. Atrial fibrillation history. Plan: Benadryl 50 mg IV x 1. Will contact PMD prn. Management as per PMD.
[2017-06-10] MEDS ORDERED: DiphenhydrAMINE 50 mg/ml Inj IVP ONE (03:59)
[2017-06-10 07:01] LABS: BASO # 0.03 K/mm3 (0.0-2.0); BASO % 0.4 % (0.0-3.0); EOS # 0.1 (0.0-0.7); EOS % 0.7 % (1.5-5.0); GRAN # 5.51 (1.4-6.5); GRAN % 73.6 % (50.0-68.0); HEMOGLOBIN 11.5 g/dL (14.0-18.0); LYMPH % 13.6 % (22.0-35.0); MEAN CELL VOLUME 88.4 fl (80.0-105.0); MEAN CORPUSCULAR HEMOGLOBIN 32.5 pg (25.0-35.0); MEAN CORPUSCULAR HGB CONC 36.7 g/dl (31.0-37.0); MONO # 0.9 (0.1-0.6); MONO % 11.7 % (1.0-6.0); RBC 3.54 10^6/uL (3.5-6.1); RED CELL DISTRIBUTION WIDTH 16.1 % (11.5-14.5); WHITE BLOOD COUNT 7.5 10^3/ul (4.5-11.0)
[2017-06-10 07:41] LABS: CALCIUM 10.6 mg/dL (8.4-10.5)
[2017-06-10] MEDS: Pantoprazole 40 mg EC Tab PO SCH (07:54)
[2017-06-10] MEDS: Levothyroxine 88 MCG TAB PO SCH (07:54)
[2017-06-10] MEDS: Insulin Reg-HIGH-Coverage SC SCH ×4 (08:25→22:11)
--- NOTE | 2017-06-10 08:31 | RAD ---
HISTORY: Altered mental status. COMPARISON: 05/26/2017 FINDINGS: LUNGS: No active pulmonary disease. PLEURA: No significant pleural effusion identified, no pneumothorax apparent. Pleural plaques consistent with prior asbestos exposure. CARDIOVASCULAR: No radiographic findings to suggest acute or significant cardiovascular disease. Venous access catheter in stable, satisfactory position. OSSEOUS STRUCTURES: No significant abnormalities. VISUALIZED UPPER ABDOMEN: Normal. OTHER FINDINGS: None. IMPRESSION: No active disease. No significant interval change compared to the prior examination(s).
[2017-06-10 08:32] LABS: ALB/GLOB RATIO 0.9 (1.1-1.8); ALBUMIN 3.9 g/dL (3.0-4.8)
[2017-06-10] MEDS ORDERED: Lactulose 10 gm/15 ml (Rectal Use) PR SCH (10:00)
[2017-06-10] MEDS: ALPHA LIPOIC ACID 600 MG PO SCH ×2 (11:16→18:34)
[2017-06-10] MEDS: Metoprolol Succinate 50 mg XL Tab PO SCH (11:46)
[2017-06-10] MEDS: Cholecalciferol 1,000 INTLU TAB PO SCH (11:46)
--- NOTE | 2017-06-10 12:29 | CP.PCM.CON ---
History of Present Illness - History of Present Illness History of Present Illness: 72[address] Emery Abbasi's service seen and examined at bedside for left foot 4th digit ulceration. Pt's is at bedside and states he was brought to the hospital for altered mental status. States she noticed some pus coming from the 4th toe last week when at an office visit with Dr. Abbasi but since then has not seen any. She cleans and changes it daily with saline and a dry dressing with Bactroban ointment. She states he has not been complaining of any foot pain recently. Denies F/C/N/V/CP/SOB. Review of Systems - Review of Systems All systems: reviewed and no additional remarkable complaints except (per HPI) Past Patient History - Infectious Disease Hx of Infectious Diseases: None - Past Social History Smoking Status: Former Smoker - CARDIAC Hx Cardiac Disorders: Yes Hx Cardia Arrhythmia: Yes (A-Fib) Hx Congestive Heart Failure: Yes Hx Hypertension: Yes Hx Peripheral Edema: Yes (b/l LE) - PULMONARY Hx Respiratory Disorders: Yes Other/Comment: Abestosis - NEUROLOGICAL Hx Neurological Disorder: No - HEENT Hx HEENT Problems: Yes Hx Macular Degeneration: Yes - RENAL Hx Chronic Kidney Disease: Yes Hx Dialysis: Yes (M-W-F) Hx Kidney Stones: Yes Hx Renal Failure: Yes - ENDOCRINE/METABOLIC Hx Endocrine Disorders: Yes Hx Diabetes Mellitus Type 2: Yes Hx Hypothyroidism: Yes - HEMATOLOGICAL/ONCOLOGICAL Hx Blood Disorders: Yes Hx Cirrhosis: Yes - INTEGUMENTARY Hx Dermatological Problems: No - MUSCULOSKELETAL/RHEUMATOLOGICAL Hx Musculoskeletal Disorders: Yes Hx Arthritis: Yes Hx Falls: No - GASTROINTESTINAL Hx Gastrointestinal Disorders: No - GENITOURINARY/GYNECOLOGICAL Hx Genitourinary Disorders: No - PSYCHIATRIC Hx Psychophysiologic Disorder: No Hx Substance Use: No - SURGICAL HISTORY Hx Surgeries: Yes Hx Cardiac Catheterization: Yes (5 stents) Hx Cholecystectomy: Yes Hx Coronary Stent: Yes Hx Musculoskeletal Surgery: Yes (B/L total knee replacement) - ANESTHESIA Hx Anesthesia Reactions: No Meds Allergies/Adverse Reactions: Allergies Allergy/AdvReac Type Severity Reaction Status Date / Time No Known Allergies Allergy Verified 05/26/17 12:26 - Medications Medications: Current Medications Acetaminophen (Tylenol 120mg Supp) 120 mg RC Q6 PRN PRN Reason: Fever >100.4 F Aspirin (Ecotrin) 81 mg PO DAILY [facility] Last Admin: 06/10/17 11:45 Dose: Not Given Calcium Acetate (Phoslo) 66 mg PO TID [facility] Last Admin: 06/10/17 11:46 Dose: Not Given Cholecalciferol (Vitamin D) 2,000 intlu PO DAILY [facility] Last Admin: 06/10/17 11:46 Dose: Not Given Clopidogrel Bisulfate (Plavix) 75 mg PO DAILY [facility] Last Admin: 06/10/17 11:46 Dose: Not Given Gabapentin (Neurontin) 300 mg PO BID [facility] PRN Reason: Protocol Last Admin: 06/10/17 11:46 Dose: Not Given Insulin Human Regular (Humulin R High) 0 units SC ACHS [facility] PRN Reason: Protocol Last Admin: 06/10/17 08:25 Dose: 10 units Lactulose (Enulose) 20 gm NG BID [facility] Last Admin: 06/10/17 11:45 Dose: Not Given Levothyroxine Sodium (Synthroid) 88 mcg PO 0600 [facility] Last Admin: 06/10/17 07:54 Dose: Not Given Metoprolol Succinate (Toprol Xl) 50 mg PO DAILY [facility] Last Admin: 06/10/17 11:46 Dose: Not Given Alpha Lipoic Acid [ Alpha Lipoic Acid] 600 Mg (Home Med) 600 mg PO BID [facility] Last Admin: 06/10/17 11:16 Dose: Not Given Pantoprazole Sodium (Protonix Ec Tab) 40 mg PO 0600 [facility] Last Admin: 06/10/17 07:54 Dose: Not Given Ramipril (Altace) 1.25 mg PO DAILY [facility] Last Admin: 06/10/17 11:16 Dose: Not Given Physical Exam - Constitutional Appears: Well, Non-toxic, No Acute Distress - Extremities Exam Additional comments: Vasc: DP/PT pulses faintly palpable 1/4 B/L. Temperature gradient warm to cool B /L. CFT delayed but present to all digits. No pedal edema noted Derm: Circular ulceration approx 0.6cm in diameter noted to lateral left foot 4th digit. Wound base is mostly fibrotic with minor necrotic and granular tissue present in wound bed. Wound borders not hyperkeratotic or macerated. No active drainage, no malodor, no vesna wound erythema, no cellulitis, no tunneling or undermining Neuro: Protective sensation slightly diminished Ortho: No tenderness to palpation of left foot 4th digit ulceration - Neurological Exam Neurological exam: Alert - Psychiatric Exam Psychiatric exam: Normal Affect, Normal Mood Results - Vital Signs Recent Vital Signs: Last Vital Signs Temp 98.1 F 06/10/17 07:25 Pulse 103 H 06/10/17 07:25 Resp 21 06/10/17 07:25 BP 165/81 H 06/10/17 00:44 Pulse Ox 98 06/10/17 07:25 - Labs Result Diagrams: 06/13/17 05:00 06/11/17 06:00 Labs: Laboratory Results - last 24 hr 06/10/17 06/10/17 06/10/17 06:00 06:00 06:45 WBC 7.5 D RBC 3.54 Hgb 11.5 L Hct 31.3 L MCV 88.4 MCH 32.5 MCHC 36.7 RDW 16.1 H Plt Count 88 L MPV 12.0 H Gran % 73.6 H Lymph % (Auto) 13.6 L [place] % (Auto) 11.7 H Eos % (Auto) 0.7 L Baso % (Auto) 0.4 Gran # 5.51 Lymph # (Auto) 1.0 L [place] # (Auto) 0.9 H Eos # (Auto) 0.1 Baso # (Auto) 0.03 Sodium 142 Potassium 3.9 Chloride 106 Carbon Dioxide 18 L Anion Gap 23 H BUN 34 H Creatinine 2.5 H Est GFR ( Amer) 31 Est GFR (Non-Af Amer) 25 POC Glucose (mg/dL) Random Glucose 360 H* D Calcium 10.6 H Total Bilirubin 1.8 H Direct Bilirubin 1.0 H AST 64 H ALT 39 Alkaline Phosphatase 238 H Ammonia Total Protein 8.2 Albumin 3.9 Globulin 4.3 Albumin/Globulin Ratio 0.9 L 06/10/17 06/10/17 06/10/17 07:41 09:00 11:52 WBC RBC Hgb Hct MCV MCH MCHC RDW Plt Count MPV Gran % Lymph % (Auto) [place] % (Auto) Eos % (Auto) Baso % (Auto) Gran # Lymph # (Auto) [place] # (Auto) Eos # (Auto) Baso # (Auto) Sodium Potassium Chloride Carbon Dioxide Anion Gap BUN Creatinine Est GFR ( Amer) Est GFR (Non-Af Amer) POC Glucose (mg/dL) 332 H 326 H Random Glucose Calcium Total Bilirubin Direct Bilirubin AST ALT Alkaline Phosphatase Ammonia 67 H Total Protein Albumin Globulin Albumin/Globulin Ratio Assessment & Plan - Assessment and Plan (Free Text) Assessment: 72 y/o diabetic male with PAD with left foot 4th digit ulcer Plan: Seen and examined Discussed with Dr. Abbasi X-rays of L foot ordered Betadine and DSD applied to L foot Will continue to follow patient while in house Thank you for this consult
--- NOTE | 2017-06-10 14:04 | CP.PCM.CON ---
<Darline Hannah - Last Filed: 06/10/17 14:04> History of Present Illness - History of Present Illness History of Present Illness: Seen and examined at the bedside earlier today, chart reviewed. Request for GI consult is for hepatic encephalopathy. HPI: This is a 72-year-old male with a past medical history of end-stage renal disease on hemodialysis 3 days a week, hypertension, coronary artery disease, status post OR, with liver cirrhosis history of hepatic encephalopathy was brought to the emergency room by his family for altered mental status. This morning the is at the bedside, the patient reportedly had dialysis yesterday like usual and was resting and when he woke up late afternoon the patient was confused. The reported that the patient was recently hospitalized for altered mental status was brought to the emergency room and mental status improved, the thought of the cause at that time was maybe from his Ambien for adverse reaction to that days dialysis. The patient is known to our service from previous admissions. He is on lactulose and the patient patient's reports that he takes it Tuesdays and and has daily bowel movements. Patient's denies any recent falls. In review of the chart he was noted to have a CT scan on 05/26/2017 which was negative for any bleeding or infarct. No reports of any melena or bright red blood per rectum. No nausea, vomiting, hematemesis. The patient is confused, lethargic and unable to answer questions or follow any commands. He was given lactulose enema and reported to have about 3 bowel movements. His ammonia on admission was 225. Past medical history is end-stage renal disease on dialysis,Non-insulin- dependent diabetes, liver cirrhosis, hepatic encephalopathy, atrial fibrillation , CHF, cellulitis of lower extremities, coronary artery disease, OR, hypothyroidism Surgical history: Hernia repair, left knee replacement, cholecystectomy, PTCA on 03/21/2017 with drug-eluting stent Allergies: No known drug allergies Medications: Reviewed as per MAR Social history: No history of tobacco, history of EtOH, no history of illicit drug use Family history: Noncontributory to this time ROS: Systems reviewed with positive findings see HPI. Past Patient History - Infectious Disease Hx of Infectious Diseases: None - Past Social History Smoking Status: Former Smoker - CARDIAC Hx Cardiac Disorders: Yes Hx Cardia Arrhythmia: Yes (A-Fib) Hx Congestive Heart Failure: Yes Hx Hypertension: Yes Hx Peripheral Edema: Yes (b/l LE) - PULMONARY Hx Respiratory Disorders: Yes Other/Comment: Abestosis - NEUROLOGICAL Hx Neurological Disorder: No - HEENT Hx HEENT Problems: Yes Hx Macular Degeneration: Yes - RENAL Hx Chronic Kidney Disease: Yes Hx Dialysis: Yes (-W-) Hx Kidney Stones: Yes Hx Renal Failure: Yes - ENDOCRINE/METABOLIC Hx Endocrine Disorders: Yes Hx Diabetes Mellitus Type 2: Yes Hx Hypothyroidism: Yes - HEMATOLOGICAL/ONCOLOGICAL Hx Blood Disorders: Yes Hx Cirrhosis: Yes - INTEGUMENTARY Hx Dermatological Problems: No - MUSCULOSKELETAL/RHEUMATOLOGICAL Hx Musculoskeletal Disorders: Yes Hx Arthritis: Yes Hx Falls: No - GASTROINTESTINAL Hx Gastrointestinal Disorders: No - GENITOURINARY/GYNECOLOGICAL Hx Genitourinary Disorders: No - PSYCHIATRIC Hx Psychophysiologic Disorder: No Hx Substance Use: No - SURGICAL HISTORY Hx Surgeries: Yes Hx Cardiac Catheterization: Yes (5 stents) Hx Cholecystectomy: Yes Hx Coronary Stent: Yes Hx Musculoskeletal Surgery: Yes (B/L total knee replacement) - ANESTHESIA Hx Anesthesia Reactions: No Meds Allergies/Adverse Reactions: Allergies Allergy/AdvReac Type Severity Reaction Status Date / Time No Known Allergies Allergy Verified 05/26/17 12:26 - Medications Medications: Current Medications Aspirin (Ecotrin) 81 mg PO DAILY [facility] Calcium Acetate (Phoslo) 66 mg PO TID [facility] Cholecalciferol (Vitamin D) 2,000 intlu PO DAILY [facility] Clopidogrel Bisulfate (Plavix) 75 mg PO DAILY [facility] Gabapentin (Neurontin) 300 mg PO BID [facility] PRN Reason: Protocol Insulin Human Regular (Humulin R High) 0 units SC ACHS [facility] PRN Reason: Protocol Last Admin: 06/10/17 08:25 Dose: 10 units Lactulose (Enulose) 20 gm NG BID [facility] Levothyroxine Sodium (Synthroid) 88 mcg PO 0600 [facility] Last Admin: 06/10/17 07:54 Dose: Not Given Metoprolol Succinate (Toprol Xl) 50 mg PO DAILY [facility] Alpha Lipoic Acid [ Alpha Lipoic Acid] 600 Mg (Home Med) 600 mg PO BID [facility] Pantoprazole Sodium (Protonix Ec Tab) 40 mg PO 0600 [facility] Last Admin: 06/10/17 07:54 Dose: Not Given Ramipril (Altace) 1.25 mg PO DAILY [facility] Physical Exam - Constitutional Appears: Confused - Head Exam Head Exam: NORMOCEPHALIC - Eye Exam Eye Exam: Normal appearance. absent: Scleral icterus Pupil Exam: NORMAL ACCOMODATION - ENT Exam ENT Exam: Mucous Membranes Moist - Neck Exam Neck exam: Positive for: Normal Inspection - Respiratory Exam Respiratory Exam: NORMAL BREATHING PATTERN. absent: Respiratory Distress - Cardiovascular Exam Cardiovascular Exam: +S1, +S2 - GI/Abdominal Exam GI & Abdominal Exam: Normal Bowel Sounds, Soft. absent: Guarding, Rebound, Tenderness - Extremities Exam Extremities exam: Negative for: calf tenderness, pedal edema - Neurological Exam Neurological exam: Alert, Altered Additional comments: lethargic - Skin Skin Exam: Dry, Warm Results - Vital Signs Recent Vital Signs: Last Vital Signs Temp 98.1 F 06/10/17 07:25 Pulse 103 H 06/10/17 07:25 Resp 21 06/10/17 07:25 BP 165/81 H 06/10/17 00:44 Pulse Ox 98 06/10/17 07:25 - Labs Result Diagrams: 06/10/17 06:00 06/10/17 06:00 Labs: Laboratory Results - last 24 hr 06/10/17 06/10/17 06/10/17 06:00 06:00 06:45 WBC 7.5 D RBC 3.54 Hgb 11.5 L Hct 31.3 L MCV 88.4 MCH 32.5 MCHC 36.7 RDW 16.1 H Plt Count 88 L MPV 12.0 H Gran % 73.6 H Lymph % (Auto) 13.6 L [place] % (Auto) 11.7 H Eos % (Auto) 0.7 L Baso % (Auto) 0.4 Gran # 5.51 Lymph # (Auto) 1.0 L [place] # (Auto) 0.9 H Eos # (Auto) 0.1 Baso # (Auto) 0.03 Sodium 142 Potassium 3.9 Chloride 106 Carbon Dioxide 18 L Anion Gap 23 H BUN 34 H Creatinine 2.5 H Est GFR ( Amer) 31 Est GFR (Non-Af Amer) 25 POC Glucose (mg/dL) Random Glucose 360 H* D Calcium 10.6 H Total Bilirubin 1.8 H Direct Bilirubin 1.0 H AST 64 H ALT 39 Alkaline Phosphatase 238 H Ammonia Total Protein 8.2 Albumin 3.9 Globulin 4.3 Albumin/Globulin Ratio 0.9 L 06/10/17 06/10/17 07:41 09:00 WBC RBC Hgb Hct MCV MCH MCHC RDW Plt Count MPV Gran % Lymph % (Auto) [place] % (Auto) Eos % (Auto) Baso % (Auto) Gran # Lymph # (Auto) [place] # (Auto) Eos # (Auto) Baso # (Auto) Sodium Potassium Chloride Carbon Dioxide Anion Gap BUN Creatinine Est GFR ( Amer) Est GFR (Non-Af Amer) POC Glucose (mg/dL) 332 H Random Glucose Calcium Total Bilirubin Direct Bilirubin AST ALT Alkaline Phosphatase Ammonia 67 H Total Protein Albumin Globulin Albumin/Globulin Ratio Assessment & Plan - Assessment and Plan (Free Text) Assessment: ASSESSMENT: Altered Mental Status Hepatic Encephalotpathy Liver Cirrhosis ESRD on dialysis CAD, s/p PTCA DM PLAN: NPO NG tube for medication Lactulose 20 gm via NG tube BID titrate to 2 stool/day monitor LFT Monitor electrolytes IVF for hydration pending ct scan head pending swallow eval trend ammonia level Thank you for this consult and for allowing us to participate in your patient care, further recommendation based upon clinical course. Seen and discussed w/ Dr. Mejia. <Delbert Mejia V - Last Filed: 06/10/17 21:32> Meds - Medications Medications: Current Medications Acetaminophen (Tylenol 650 Mg Supp) 650 mg RC Q6 PRN PRN Reason: Fever >100.4 F Last Admin: 06/10/17 12:53 Dose: 650 mg Aspirin (Ecotrin) 81 mg PO DAILY [facility] Last Admin: 06/10/17 11:45 Dose: Not Given Calcium Acetate (Phoslo) 66 mg PO TID [facility] Last Admin: 06/10/17 17:37 Dose: Not Given Cholecalciferol (Vitamin D) 2,000 intlu PO DAILY [facility] Last Admin: 06/10/17 11:46 Dose: Not Given Clopidogrel Bisulfate (Plavix) 75 mg PO DAILY [facility] Last Admin: 06/10/17 11:46 Dose: Not Given Gabapentin (Neurontin) 300 mg PO BID [facility] PRN Reason: Protocol Last Admin: 06/10/17 17:37 Dose: Not Given Insulin Human Regular (Humulin R High) 0 units SC ACHS [facility] PRN Reason: Protocol Last Admin: 06/10/17 17:36 Dose: Not Given Lactulose (Enulose) 20 gm NG BID [facility] Last Admin: 03/30/18 18:34 Dose: Not Given Levothyroxine Sodium (Synthroid) 88 mcg PO 0600 [facility] Last Admin: 06/10/17 07:54 Dose: Not Given Lorazepam (Ativan) 0.5 mg IVP Q6H PRN; Protocol PRN Reason: Anxiety Lorazepam (Ativan) 1 mg IM Q6H PRN; Protocol PRN Reason: Agitation Metoprolol Succinate (Toprol Xl) 50 mg PO DAILY [facility] Last Admin: 06/10/17 11:46 Dose: Not Given Alpha Lipoic Acid [ Alpha Lipoic Acid] 600 Mg (Home Med) 600 mg PO BID [facility] Last Admin: 06/10/17 18:34 Dose: Not Given Pantoprazole Sodium (Protonix Ec Tab) 40 mg PO 0600 [facility] Last Admin: 06/10/17 07:54 Dose: Not Given Ramipril (Altace) 1.25 mg PO DAILY [facility] Last Admin: 06/10/17 11:16 Dose: Not Given Results - Vital Signs Recent Vital Signs: Last Vital Signs Temp 99.6 F 06/10/17 12:53 Pulse 103 H 06/10/17 07:25 Resp 21 06/10/17 07:25 BP 165/81 H 06/10/17 00:44 Pulse Ox 98 06/10/17 07:25 - Labs Result Diagrams: 06/10/17 06:00 06/10/17 06:00 Labs: Laboratory Results - last 24 hr 06/10/17 06/10/17 06/10/17 06:00 06:00 06:45 WBC 7.5 D RBC 3.54 Hgb 11.5 L Hct 31.3 L MCV 88.4 MCH 32.5 MCHC 36.7 RDW 16.1 H Plt Count 88 L MPV 12.0 H Gran % 73.6 H Lymph % (Auto) 13.6 L [place] % (Auto) 11.7 H Eos % (Auto) 0.7 L Baso % (Auto) 0.4 Gran # 5.51 Lymph # (Auto) 1.0 L [place] # (Auto) 0.9 H Eos # (Auto) 0.1 Baso # (Auto) 0.03 Sodium 142 Potassium 3.9 Chloride 106 Carbon Dioxide 18 L Anion Gap 23 H BUN 34 H Creatinine 2.5 H Est GFR ( Amer) 31 Est GFR (Non-Af Amer) 25 POC Glucose (mg/dL) Random Glucose 360 H* D Calcium 10.6 H Total Bilirubin 1.8 H Direct Bilirubin 1.0 H AST 64 H ALT 39 Alkaline Phosphatase 238 H Ammonia Total Protein 8.2 Albumin 3.9 Globulin 4.3 Albumin/Globulin Ratio 0.9 L 06/10/17 06/10/17 06/10/17 07:41 09:00 11:52 WBC RBC Hgb Hct MCV MCH MCHC RDW Plt Count MPV Gran % Lymph % (Auto) [place] % (Auto) Eos % (Auto) Baso % (Auto) Gran # Lymph # (Auto) [place] # (Auto) Eos # (Auto) Baso # (Auto) Sodium Potassium Chloride Carbon Dioxide Anion Gap BUN Creatinine Est GFR ( Amer) Est GFR (Non-Af Amer) POC Glucose (mg/dL) 332 H 326 H Random Glucose Calcium Total Bilirubin Direct Bilirubin AST ALT Alkaline Phosphatase Ammonia 67 H Total Protein Albumin Globulin Albumin/Globulin Ratio 06/10/17 06/10/17 15:08 19:25 WBC RBC Hgb Hct MCV MCH MCHC RDW Plt Count MPV Gran % Lymph % (Auto) [place] % (Auto) Eos % (Auto) Baso % (Auto) Gran # Lymph # (Auto) [place] # (Auto) Eos # (Auto) Baso # (Auto) Sodium Potassium Chloride Carbon Dioxide Anion Gap BUN Creatinine Est GFR ( Amer) Est GFR (Non-Af Amer) POC Glucose (mg/dL) 346 H 197 H Random Glucose Calcium Total Bilirubin Direct Bilirubin AST ALT Alkaline Phosphatase Ammonia Total Protein Albumin Globulin Albumin/Globulin Ratio Attending/Attestation - Attestation I have personally seen and examined this patient.: Yes I have fully participated in the care of the patient.: Yes I have reviewed all pertinent clinical information: Yes Notes (Text): This is an addendum to GI progress report dictated by Darline Hannah APN.The patient was seen and examined earlier. Medical records, lab studies, imagings were reviewed. Last 24 hours events reviewed. Agreed with the above treatment plan as outlined in Darline Hannah APN's notes with the addition of the following 06/10/17 21:32
--- NOTE | 2017-06-10 14:38 | PN ---
DATE: SUBJECTIVE: The patient is a 72-year-old male with a history of end-stage renal disease, on dialysis. He also has a history of asbestosis, COPD, insulin-dependent diabetes mellitus, hypothyroidism, hepatic failure, ascites who was admitted with an episode of confusion, onset shortly after his dialysis last Tuesday. As the symptoms became worse towards evening, the patient brought the family to the Emergency Room where he is admitted. When seen today, the patient is still quite confused. He does not respond to verbal stimuli or answer questions. There is a slow motion movement in his arms and legs reaching out. PHYSICAL EXAMINATION VITAL SIGNS: His blood pressure is 165/81, heart rate is 103 and he is afebrile. LUNGS: Clear anteriorly. HEART: Regular with a systolic murmur appreciated. ABDOMEN: Soft and nontender. EXTREMITIES: Revealed no cyanosis, clubbing, or edema. LABORATORY DATA: Shows the total bilirubin to be 1.8, ammonia level dropped from 225 yesterday to 67 this morning. White blood cell count is 7.5, hemoglobin and hematocrit are 11.5 and 31.7 respectively, platelet count is 88,000. Sodium is 142, potassium is 3.9. Blood urea nitrogen and creatinine are 34 and 2.5 respectively. Glucose is 360. So at this point, we will be giving IV benzodiazepine for the patient to be able to lie still for further testing, example, CAT scan of the head and in dialysis, which is scheduled for today. We are continuing to follow the patient closely. This case to be discussed with Dr. Shah, the neurologist, for treatment and prevention of this apparent metabolic encephalopathy. Jim Reyes MD
--- NOTE | 2017-06-10 14:59 | CT ---
PROCEDURE: CT HEAD WITHOUT CONTRAST. HISTORY: confusion COMPARISON: None available. TECHNIQUE: Axial computed tomography images were obtained through the head/brain without intravenous contrast. Radiation dose: Total exam DLP = 1904 mGy-cm. This CT exam was performed using one or more of the following dose reduction techniques: Automated exposure control, adjustment of the mA and/or kV according to patient size, and/or use of iterative reconstruction technique. FINDINGS: HEMORRHAGE: No intracranial hemorrhage. BRAIN: No mass effect or edema. No atrophy or chronic microvascular ischemic changes. VENTRICLES: Unremarkable. No hydrocephalus. CALVARIUM: Unremarkable. PARANASAL SINUSES: Unremarkable as visualized. No significant inflammatory changes. MASTOID AIR CELLS: Unremarkable as visualized. No inflammatory changes. OTHER FINDINGS: None. IMPRESSION: No acute findings
--- NOTE | 2017-06-10 15:24 | RAD ---
PROCEDURE: Left Foot Radiographs. HISTORY: left foot ulcer DM COMPARISON: None. FINDINGS: BONES: Plantar and Achilles Tendon insertion calcaneal spurs. JOINTS: Hallux valgus deformity. Degenerative changes interphalangeal joint distribution. SOFT TISSUES: Normal. OTHER FINDINGS: None. IMPRESSION: No acute findings related to/accounting for the clinical presentation.
--- NOTE | 2017-06-10 19:25 | HP ---
ADMITTING HISTORY AND PHYSICAL I would like the admitting history and physical to be read as follows, if you would be so kind. HISTORY OF PRESENT ILLNESS: The patient is a 72-year-old male who was admitted to the [facility] with extreme confusion. The patient became confused after Tuesday's dialysis; however, became markedly severe towards the evening hours of and therefore the patient's family became concerned and was taken to the emergency room. A similar episode occurred two weeks ago after his Tuesday's dialysis. The patient was hospitalized at that time, given IV fluids and responded well and discharged to home. The patient is not responding to verbal stimuli. He is moving in the bed, reaching out with the hands, holding hands. He is not talkative. PAST MEDICAL HISTORY: He is noted to have a past medical history positive for coronary artery disease, insulin-dependent diabetes mellitus, history of asbestosis, mitral valve murmurs, end stage renal disease, on dialysis, he has a history of deep vein thrombosis, hypertension, hypothyroidism, osteomyelitis of the toe, and cirrhosis of the liver with ascites. He is also known to have elevated ammonia levels in the past. He is known to have history of atrial fibrillation, congestive heart failure as well. SOCIAL HISTORY: The patient is a former smoker and nonalcoholic drinker. He is with children. ALLERGIES: HE HAS NO KNOWN MEDICAL ALLERGIES. MEDICATIONS: At the time of admission included levothyroxine 88 mcg, metoprolol succinate 50 mg, vitamin D 2000 mg daily, NovoLog Mix 70/30 25 units twice a day, Plavix 75 mg once a day, lactulose 10 mg once a day, nitroglycerin tablets 0.4 mg sublingually p.r.n., ramipril 1.25 mg daily, alpha lipoic acid 600 mg twice a day and calcium acetate/PhosLo 667 mg three times a day. PHYSICAL EXAMINATION GENERAL: The patient is lying in bed. and daughter are at bedside. The patient is aimlessly moving his arms and legs reaching out. He does not respond questions asked. He does not focus his eyes on anyone in the room. LUNGS: Clear anteriorly. HEART: Regular. There is a systolic murmur appreciated. ABDOMEN: Round, soft and nontender. EXTREMITIES: Free of cyanosis, clubbing, or edema. VITAL SIGNS: His blood pressure is 136/82, heart rate of 76, and he is afebrile at 97.8 degrees Fahrenheit. LABORATORY DATA: On admission, the white blood cell count is 5.0, hemoglobin and hematocrit are 11.7 and 31.4, platelet count is 94. Sodium is 140, potassium is 3.8, Blood urea nitrogen is 33, creatinine is 2.6. Nonfasting sugar is 245. DIAGNOSTIC DATA: Chest x-ray shows no acute disease. PLAN: So, the patient is to be admitted. Consultation with Dr. Dalton is called. We will also be asking for Neurology consult from Dr. Shah. The patient has to be given intravenous fluids. He will be reevaluated in the morning. Jim Reyes MD
--- NOTE | 2017-06-10 20:29 | CARD ---
APPROVED REPORT EKG Measurement Heart [id number] <Conclusion> Sinus rhythm with 1st degree AV Block Nonspecific ST and T wave abnormality Prolonged QT Abnormal ECG
--- NOTE | 2017-06-10 23:32 | CON ---
DATE: HISTORY OF PRESENT ILLNESS: This is a 72-year-old white male with past medical history of hypertension; end-stage renal disease, on hemodialysis Tuesday, Tuesday, Tuesday; and came with family from home with altered mental status and states that he was very fatigued after the dialysis yesterday, and woke up around 4 p.m., was very confused, and ammonia level was high, and also patient had similar presentation 2 weeks ago, and called to evaluate the patient. The patient ordered a CAT scan of the head "because of his restlessness." ALLERGIES: NO KNOWN DRUG ALLERGIES. HOME MEDICATIONS: Synthroid, Toprol, Plavix, ramipril, Azithral. REVIEW OF SYSTEMS: The patient is confused, not following commands, but spontaneously moving all the extremities. Family is at bedside. PHYSICAL EXAMINATION VITAL SIGNS: Blood pressure 136/82. HEENT: Normocephalic, atraumatic. NECK: Supple. NEUROLOGIC: Patient is confused and not following commands. Pupils reactive. Disconjugate eye movements. Spontaneous movement of all the extremities noted. Deep tendon reflexes 1+. Both plantars are downgoing. Sensory appears intact. Cerebellar, gait deferred. LABORATORY DATA: WBC 5, hemoglobin 11.7, hematocrit 31.4, and platelets 94. Sodium 140, potassium 3.8, chloride 102, CO2 of 25, glucose 245, BUN 33, and creatinine 2.6. IMPRESSION: Encephalopathy, possibly toxic metabolic, and kidney failure, on hemodialysis. We will order a CAT scan of the head without contrast and continue present management. We will follow up. Sumit Shah MD
--- NOTE | 2017-06-11 01:03 | CP.PCM.PN ---
Subjective - Date & Time of Evaluation Date of Evaluation: 06/11/17 Time of Evaluation: 01:01 - Subjective Subjective: Patient was seen. As per nurse and family members he is agitated and trying to get out of bed. Has received ativan at 10:20PM, next dose is not due yet. Patient is agitated in bed , trying to get out. Medical record was reviewed. 72 year old white male is admitted with altered mental status, elevated LFT's , elevated ammonia level. PMH of atrial fibrillation, HTN,CHF, cellulitis , chronic elevated ammonia level, total knee replacement. Objective - Vital Signs/Intake and Output Vital Signs (last 24 hours): Temp Pulse Resp BP Pulse Ox 98.6 F 103 H 21 165/81 H 98 06/11/17 00:25 06/10/17 07:25 06/10/17 07:25 06/10/17 00:44 06/10/17 07:25 - Medications Medications: Current Medications Acetaminophen (Tylenol 650 Mg Supp) 650 mg RC Q6 PRN PRN Reason: Fever >100.4 F Last Admin: 06/10/17 12:53 Dose: 650 mg Aspirin (Ecotrin) 81 mg PO DAILY [facility] Last Admin: 06/10/17 11:45 Dose: Not Given Calcium Acetate (Phoslo) 66 mg PO TID [facility] Last Admin: 06/10/17 17:37 Dose: Not Given Cholecalciferol (Vitamin D) 2,000 intlu PO DAILY [facility] Last Admin: 06/10/17 11:46 Dose: Not Given Clopidogrel Bisulfate (Plavix) 75 mg PO DAILY [facility] Last Admin: 06/10/17 11:46 Dose: Not Given Gabapentin (Neurontin) 300 mg PO BID [facility] PRN Reason: Protocol Last Admin: 06/10/17 17:37 Dose: Not Given Insulin Human Regular (Humulin R High) 0 units SC ACHS [facility] PRN Reason: Protocol Last Admin: 06/10/17 22:11 Dose: 2 units Lactulose (Enulose) 20 gm NG BID [facility] Last Admin: 06/10/17 18:34 Dose: Not Given Levothyroxine Sodium (Synthroid) 88 mcg PO 0600 [facility] Last Admin: 06/10/17 07:54 Dose: Not Given Lorazepam (Ativan) 0.5 mg IVP Q6H PRN; Protocol PRN Reason: Anxiety Last Admin: 06/10/17 22:18 Dose: 0.5 mg Lorazepam (Ativan) 1 mg IM Q6H PRN; Protocol PRN Reason: Agitation Metoprolol Succinate (Toprol Xl) 50 mg PO DAILY [facility] Last Admin: 06/10/17 11:46 Dose: Not Given Alpha Lipoic Acid [ Alpha Lipoic Acid] 600 Mg (Home Med) 600 mg PO BID [facility] Last Admin: 06/10/17 18:34 Dose: Not Given Pantoprazole Sodium (Protonix Ec Tab) 40 mg PO 0600 [facility] Last Admin: 06/10/17 07:54 Dose: Not Given Ramipril (Altace) 1.25 mg PO DAILY [facility] Last Admin: 06/10/17 11:16 Dose: Not Given - Labs Labs: 06/10/17 06:00 06/10/17 06:00 PT 12.7 SECONDS (9.4-12.5) H 06/09/17 22:00 INR 1.11 (0.93-1.08) H 06/09/17 22:00 APTT 30.4 Seconds (25.1-36.5) 06/09/17 22:00 Most Recent Lab Values WBC 7.5 10^3/ul (4.5-11.0) D 06/10/17 06:00 RBC 3.54 10^6/uL (3.5-6.1) 06/10/17 06:00 Hgb 11.5 g/dL (14.0-18.0) L 06/10/17 06:00 Hct 31.3 % (42.0-52.0) L 06/10/17 06:00 MCV 88.4 fl (80.0-105.0) 06/10/17 06:00 MCH 32.5 pg (25.0-35.0) 06/10/17 06:00 MCHC 36.7 g/dl (31.0-37.0) 06/10/17 06:00 RDW 16.1 % (11.5-14.5) H 06/10/17 06:00 Plt Count 88 10^3/uL (120.0-450.0) L 06/10/17 06:00 MPV 12.0 fl (7.0-11.0) H 06/10/17 06:00 Gran % 73.6 % (50.0-68.0) H 06/10/17 06:00 Lymph % (Auto) 13.6 % (22.0-35.0) L 06/10/17 06:00 [place] % (Auto) 11.7 % (1.0-6.0) H 06/10/17 06:00 Eos % (Auto) 0.7 % (1.5-5.0) L 06/10/17 06:00 Baso % (Auto) 0.4 % (0.0-3.0) 06/10/17 06:00 Gran # 5.51 (1.4-6.5) 06/10/17 06:00 Lymph # (Auto) 1.0 (1.2-3.4) L 06/10/17 06:00 [place] # (Auto) 0.9 (0.1-0.6) H 06/10/17 06:00 Eos # (Auto) 0.1 (0.0-0.7) 06/10/17 06:00 Baso # (Auto) 0.03 K/mm3 (0.0-2.0) 06/10/17 06:00 PT 12.7 SECONDS (9.4-12.5) H 06/09/17 22:00 INR 1.11 (0.93-1.08) H 06/09/17 22:00 APTT 30.4 Seconds (25.1-36.5) 06/09/17 22:00 Sodium 142 mmol/L (132-148) 06/10/17 06:00 Potassium 3.9 mmol/L (3.6-5.0) 06/10/17 06:00 Chloride 106 mmol/L (98-107) 06/10/17 06:00 Carbon Dioxide 18 mmol/L (21-33) L 06/10/17 06:00 Anion Gap 23 (10-20) H 06/10/17 06:00 BUN 34 mg/dL (7-21) H 06/10/17 06:00 Creatinine 2.5 mg/dl (0.8-1.5) H 06/10/17 06:00 Est GFR ( Amer) 31 06/10/17 06:00 Est GFR (Non-Af Amer) 25 06/10/17 06:00 POC Glucose (mg/dL) 304 mg/dL (65-110) H 06/10/17 21:33 Random Glucose 360 mg/dL (70-110) H* D 06/10/17 06:00 Calcium 10.6 mg/dL (8.4-10.5) H 06/10/17 06:00 Total Bilirubin 1.8 mg/dL (0.2-1.3) H 06/10/17 06:45 Direct Bilirubin 1.0 mg/dL (0.0-0.4) H 06/10/17 06:45 AST 64 U/L (17-59) H 06/10/17 06:45 ALT 39 U/L (7-56) 06/10/17 06:45 Alkaline Phosphatase 238 U/L (38-126) H 06/10/17 06:45 Ammonia 67 umol/L (9-33) H 06/10/17 09:00 Total Protein 8.2 g/dL (5.8-8.3) 06/10/17 06:45 Albumin 3.9 g/dL (3.0-4.8) 06/10/17 06:45 Globulin 4.3 gm/dL 06/10/17 06:45 Albumin/Globulin Ratio 0.9 (1.1-1.8) L 06/10/17 06:45 Urine Color Yellow (YELLOW) 06/09/17 22:30 Urine Appearance Clear (CLEAR) 06/09/17 22:30 Urine pH 8.0 (4.7-8.0) 06/09/17 22:30 Ur Specific [place] 1.010 (1.005-1.035) 06/09/17 22:30 Urine Protein 30 mg/dL (<30 mg/dL) H 06/09/17 22:30 Urine Glucose (UA) >=1000 mg/dL (NEGATIVE) 06/09/17 22:30 Urine Ketones Negative mg/dL (NEGATIVE) 06/09/17 22:30 Urine Blood Trace-intact (NEGATIVE) H 06/09/17 22:30 Urine Nitrate Negative (NEGATIVE) 06/09/17 22:30 Urine Bilirubin Negative (NEGATIVE) 06/09/17 22:30 Urine Urobilinogen 1.0 E.U./dL (<1 E.U./dL) H 06/09/17 22:30 Ur Leukocyte Esterase Negative Mallorie/uL (NEGATIVE) 06/09/17 22:30 Urine RBC 1 - 3 /hpf (0-2) 06/09/17 22:30 Urine WBC 0 - 2 /hpf (0-6) 06/09/17 22:30 Ur Epithelial Cells 0 - 2 /hpf (0-5) 06/09/17 22:30 Urine Bacteria Trace (NEG) 06/09/17 22:30 Urine Opiates Screen No result (NEGATIVE) 06/09/17 22:30 Urine Methadone Screen No result (NEGATIVE) 06/09/17 22:30 Ur Barbiturates Screen No result (NEGATIVE) 06/09/17 22:30 Ur Phencyclidine Scrn No result (NEGATIVE) 06/09/17 22:30 Ur Amphetamines Screen Negative (NEGATIVE) 06/09/17 22:30 U Benzodiazepines Scrn No result (NEGATIVE) 06/09/17 22:30 U Oth Cocaine Metabols No result (NEGATIVE) 06/09/17 22:30 U Cannabinoids Screen No result (NEGATIVE) 06/09/17 22:30 - Constitutional Appears: No Acute Distress - Head Exam Head Exam: ATRAUMATIC, NORMAL INSPECTION, NORMOCEPHALIC - Eye Exam Eye Exam: Normal appearance - ENT Exam ENT Exam: Normal External Ear Exam - Neck Exam Neck Exam: Normal Inspection - Respiratory Exam Respiratory Exam: NORMAL BREATHING PATTERN - Cardiovascular Exam Cardiovascular Exam: absent: JVD - GI/Abdominal Exam GI & Abdominal Exam: absent: Distended - Rectal Exam Rectal Exam: Deferred - Exam Additional comments: Deferred. - Extremities Exam Extremities Exam: Normal Inspection - Back Exam Back Exam: NORMAL INSPECTION - Neurological Exam Neurological Exam: Altered - Psychiatric Exam Psychiatric exam: Agitated - Skin Skin Exam: Normal Color Assessment and Plan - Assessment and Plan (Free Text) Assessment: Agitation. Chronic elevated ammonia level. HTN. CHF. Atrial fibrillation. Obesity. Plan: Ativan 0.5 mg IV stat. Later on, ativan 0.5 mg IV was given one more time for agitation. Continue present management.
[2017-06-11] MEDS: Levothyroxine 88 MCG TAB PO SCH (05:15)
[2017-06-11] MEDS: Pantoprazole 40 mg EC Tab PO SCH (05:15)
[2017-06-11 06:36] LABS: BASO # 0.03 K/mm3 (0.0-2.0); BASO % 0.3 % (0.0-3.0); EOS % 0.1 % (1.5-5.0); GRAN # 8.63 (1.4-6.5); HEMOGLOBIN 11.2 g/dL (14.0-18.0); LYMPH # 1.1 (1.2-3.4); LYMPH % 10.3 % (22.0-35.0); MEAN CELL VOLUME 89.6 fl (80.0-105.0); MEAN CORPUSCULAR HEMOGLOBIN 33.1 pg (25.0-35.0); MEAN PLATELET VOLUME 11.9 fl (7.0-11.0); MONO # 0.9 (0.1-0.6); MONO % 8.3 % (1.0-6.0); RBC 3.38 10^6/uL (3.5-6.1); RED CELL DISTRIBUTION WIDTH 16.3 % (11.5-14.5); WHITE BLOOD COUNT 10.7 10^3/ul (4.5-11.0)
[2017-06-11 07:42] LABS: ALB/GLOB RATIO 0.9 (1.1-1.8); ALBUMIN 3.9 g/dL (3.0-4.8); CALCIUM 9.9 mg/dL (8.4-10.5)
[2017-06-11] MEDS: Insulin Reg-HIGH-Coverage SC SCH ×3 (08:37→17:47)
[2017-06-11] MEDS: Metoprolol Succinate 50 mg XL Tab PO SCH (10:06)
[2017-06-11] MEDS: Cholecalciferol 1,000 INTLU TAB PO SCH (10:06)
[2017-06-11] MEDS: ALPHA LIPOIC ACID 600 MG PO SCH ×2 (10:06→17:43)
--- NOTE | 2017-06-11 10:12 | CP.PCM.PN ---
Subjective - Date & Time of Evaluation Date of Evaluation: 06/11/17 Time of Evaluation: 08:00 - Subjective Subjective: Podiatry Progress Note- Dr. Abbasi 72 year old male patient PMHx CHF, HTN, HLD, DM, PVD, CKD Stage 4, afib s/p ablation seen and evaluated at bedside for left foot fourth digit ulceration. and family members present at bedside. Patient expressed pain with palpation to the ulceration. Patient appears to be exhausted. No pain with calf squeeze Objective - Vital Signs/Intake and Output Vital Signs (last 24 hours): Temp Pulse Resp BP Pulse Ox 98.6 F 103 H 21 165/81 H 98 06/11/17 00:25 06/10/17 07:25 06/10/17 07:25 06/10/17 00:44 06/10/17 07:25 Intake and Output: 06/11/17 06/11/17 06:59 18:59 Intake Total 0 Balance 0 - Medications Medications: Current Medications Acetaminophen (Tylenol 650 Mg Supp) 650 mg RC Q6 PRN PRN Reason: Fever >100.4 F Last Admin: 06/10/17 12:53 Dose: 650 mg Aspirin (Ecotrin) 81 mg PO DAILY [facility] Last Admin: 06/11/17 10:06 Dose: Not Given Calcium Acetate (Phoslo) 66 mg PO TID [facility] Last Admin: 06/11/17 10:06 Dose: Not Given Cholecalciferol (Vitamin D) 2,000 intlu PO DAILY [facility] Last Admin: 06/11/17 10:06 Dose: Not Given Clopidogrel Bisulfate (Plavix) 75 mg PO DAILY [facility] Last Admin: 06/11/17 10:06 Dose: Not Given Gabapentin (Neurontin) 300 mg PO BID [facility] PRN Reason: Protocol Last Admin: 06/11/17 10:06 Dose: Not Given Insulin Human Regular (Humulin R High) 0 units SC ACHS [facility] PRN Reason: Protocol Last Admin: 06/11/17 08:37 Dose: 10 units Lactulose (Enulose) 20 gm NG BID [facility] Last Admin: 06/11/17 10:06 Dose: Not Given Levothyroxine Sodium (Synthroid) 88 mcg PO 0600 [facility] Last Admin: 06/11/17 05:15 Dose: Not Given Lorazepam (Ativan) 0.5 mg IVP Q6H PRN; Protocol PRN Reason: Anxiety Last Admin: 06/11/17 05:57 Dose: 0.5 mg Lorazepam (Ativan) 1 mg IM Q6H PRN; Protocol PRN Reason: Agitation Metoprolol Succinate (Toprol Xl) 50 mg PO DAILY [facility] Last Admin: 06/11/17 10:06 Dose: Not Given Alpha Lipoic Acid [ Alpha Lipoic Acid] 600 Mg (Home Med) 600 mg PO BID [facility] Last Admin: 06/11/17 10:06 Dose: Not Given Pantoprazole Sodium (Protonix Ec Tab) 40 mg PO 0600 [facility] Last Admin: 06/11/17 05:15 Dose: Not Given Ramipril (Altace) 1.25 mg PO DAILY [facility] Last Admin: 06/11/17 10:06 Dose: Not Given - Labs Labs: 06/11/17 06:00 06/11/17 06:00 PT 12.7 SECONDS (9.4-12.5) H 06/09/17 22:00 INR 1.11 (0.93-1.08) H 06/09/17 22:00 APTT 30.4 Seconds (25.1-36.5) 06/09/17 22:00 - Constitutional Appears: Well, Non-toxic, No Acute Distress - Extremities Exam Extremities Exam: absent: Calf Tenderness Additional comments: VASC: DP and PT pulses palpable 2/4. CFT <3 seconds to all digits. Temperature gradient warm to warm b/l. No edema noted b/l. NEURO: Epicritic and protective sensation grossly diminished b/l. DERM: Ulceration noted to lateral aspect of left 4th digit measuring approximately 1 x .8 x 0.2 cm - wound base is 70% fibrous with 30% granulation tissue in the peripheral. No purulent drainage noted to ulceration site during visitation. No undermining, no tunneling, no odor, no streaking, or increased calor noted. (+)probe to bone. Chronic erythema noted to b/l LE ORTHO: Mild tenderness upon ROM of left 4th digit and upon palpation of ulceration. Minimal pain to palpation to ulceration site. No pain on palpation to b/l calves Assessment and Plan - Assessment and Plan (Free Text) Assessment: 72 y.o male with PMH of CHF, HTN, HLD, DM, PVD, CKD stage IV, liver cirrhosis AFib s/p ablation is seen and evaluated at bedside ulceration to left fourth digit with underlying OM Plan: Patient seen and evaluated at bedside Plan discussed with attending Dr. Abbasi Afebrile, absent leukocytosis Left foot xray 03/17: No overt radiographic signs of OM at fourth digit. MRI recommended Left foot MRI 03/20: Marrow edema in the fourth proximal and middle phalanx consistent with osteomyelitis Left foot xray 06/10 no acute findings relating to clinical presentation Cleansed with saline solution, wound dressed with Bactroban, dsd Patient will continue to follow patient while in house Ordered Mupricin, to be applied with dressing changes Podiatry will continue to follow patient while in house
[2017-06-11] MEDS: Dextrose 5%/0.45% NS 1,000 ML IV SCH (12:40)
--- NOTE | 2017-06-11 16:13 | PN ---
DATE: 06/11/2017 SUBJECTIVE: The patient is seen lying in bed. He is groggy, arousable, a little more alert today. Recognizing me, following some commands. PHYSICAL EXAMINATION: GENERAL: Elderly male lying in bed. VITAL SIGNS: Blood pressure 165/81, heart rate 103, respiratory rate 20, temperature 99.6. HEENT: Normocephalic, atraumatic, positive pallor. NECK: Supple, no JVD. LUNGS: Bilateral equal air entry, bilateral equal expansion, no rales. CARDIAC: S1 and S2. Regular rate and rhythm. No murmur, no rub. ABDOMEN: Distended, soft, nontender, bowel sounds present. EXTREMITIES: No lower extremity edema, mild erythema. INTAKE AND OUTPUT: Not charted. LABORATORY DATA: WBC 10, hemoglobin 11, hematocrit 30, platelets 99. Sodium 141, potassium 3.9, chloride 102, CO2 of 21, BUN 35, creatinine 2.5, glucose 346, calcium 9.9. Total bilirubin 3.2, AST 105, ALT 40, ammonia 40, albumin 3.9. CURRENT MEDICATIONS: Altace, Ativan, D5 half-normal saline at 60, Ecotrin, lactulose 20 b.i.d., Neurontin, PhosLo, Plavix, Protonix, Synthroid, Toprol-XL, and Tylenol. ASSESSMENT: 1. Encephalopathy, acute hepatic encephalopathy. 2. ?Underlying sepsis. 3. Aak-sshncyf-xkpswqacx diabetes mellitus. 4. Hypertension. 5. End-stage renal disease. 6. Peripheral vascular disease. PLAN: 1. Discussed with Dr. Mejia, no objection to empiric antibiotics. 2. Stable dialysis yesterday. 3. Monitor fingersticks. 4. Continue phosphate binders. 5. Change Neurontin to 300 daily. Selina Garcia MD
--- NOTE | 2017-06-11 17:48 | PN ---
DATE: 06/11/2017 SUBJECTIVE: The patient is a 72-year-old male with a history of end-stage renal disease, on dialysis. He has a history of insulin-dependent diabetes mellitus, hypothyroidism, hepatic failure, COPD, and asbestosis who became increasingly confused after last Tuesday's dialysis. As the patient's symptoms worsened, the family brought the patient to the emergency room where he is evaluated and admitted. Today, he is being followed by Dr. Abbasi, the appointment coordinator for cellulitis, rule out osteomyelitis of the foot. He is also being followed by Dr. Mejia, the certified rehabilitation counselor and Dr. Shah, the neurologist. When seen today, he is not responding to verbal stimuli. He is moving, grasping hands, pulling at his night shirt. His mental status improved slightly yesterday evening as per the patient's and son-in-law who were at bedside at present, saying that for a brief period yesterday evening, he did recognize her and did recognize his son. This morning when seen, his heart is regular, lungs are clear, abdomen is soft and nontender. LABORATORY STUDIES: Show the white cell count to be 10.7, hemoglobin and hematocrit are 11.2 and 30.3, platelet count is 99. Sodium is 141, potassium 3.9, blood urea nitrogen and creatinine are 35 and 2.5 respectively. His serum glucose level is 310, this is being treated with regular insulin as per protocol. He remains afebrile at 98.1, heart rate is 103. His total bilirubin amy slightly from 1.8 yesterday to 3.2 today and his ammonia level is 40 this morning, it was [address] Mejia discussed the possible feeding tube with the patient's . She is considering this. For now, we will be starting IV fluids D5 and half normal saline at 60 mL an hour watching the patient's history of congestive heart failure and coronary disease. The patient will be reevaluated in the morning. Ativan was given on an every 6 hour basis p.r.n. agitation. Jim Reyes MD [facility] # [id number]
[2017-06-12] MEDS: Insulin Reg-HIGH-Coverage SC SCH ×5 (00:29→21:59)
[2017-06-12] MEDS: Dextrose 5%/0.45% NS 1,000 ML IV SCH (04:09)
[2017-06-12] MEDS: Pantoprazole 40 mg EC Tab PO SCH (06:29)
[2017-06-12] MEDS: Levothyroxine 88 MCG TAB PO SCH (06:29)
[2017-06-12] MEDS: ALPHA LIPOIC ACID 600 MG PO SCH ×2 (09:14→17:38)
[2017-06-12] MEDS: Cholecalciferol 1,000 INTLU TAB PO SCH (09:15)
[2017-06-12] MEDS: Metoprolol Succinate 50 mg XL Tab PO SCH (09:15)
--- NOTE | 2017-06-12 13:08 | CP.PCM.PN ---
Subjective - Date & Time of Evaluation Date of Evaluation: 06/12/17 Time of Evaluation: 11:00 - Subjective Subjective: Podiatry Progress Note- Dr. Abbasi 72 year old male patient PMHx CHF, HTN, HLD, DM, PVD, CKD Stage 4, afib s/p ablation seen and evaluated at bedside for left foot fourth digit ulceration. Daughter is at bedside during visitation. Patient is laying comfortably in bed, in NAD. Patient appears to be more awake and alert today. Reports that he is hungry. No pain with calf squeeze. Denies acute overnight events. Denies nausea , fever, shortness of breath, chest pains, or chills. Objective - Vital Signs/Intake and Output Vital Signs (last 24 hours): Temp Pulse Resp BP Pulse Ox 98.1 F 72 18 110/56 L 100 06/12/17 06:00 06/12/17 06:00 06/12/17 06:00 06/12/17 06:00 06/12/17 06:00 Intake and Output: 06/12/17 06/12/17 06:59 18:59 Intake Total 0 Output Total 0 Balance 0 - Medications Medications: Current Medications Acetaminophen (Tylenol 650 Mg Supp) 650 mg RC Q6 PRN PRN Reason: Fever >100.4 F Last Admin: 06/10/17 12:53 Dose: 650 mg Aspirin (Ecotrin) 81 mg PO DAILY [facility] Last Admin: 06/12/17 09:14 Dose: Not Given Calcium Acetate (Phoslo) 66 mg PO TID [facility] Last Admin: 06/12/17 09:15 Dose: Not Given Cholecalciferol (Vitamin D) 2,000 intlu PO DAILY [facility] Last Admin: 06/12/17 09:15 Dose: Not Given Clopidogrel Bisulfate (Plavix) 75 mg PO DAILY [facility] Last Admin: 06/12/17 09:15 Dose: Not Given Gabapentin (Neurontin) 300 mg PO DAILY [facility] PRN Reason: Protocol Last Admin: 06/12/17 10:13 Dose: Not Given Dextrose/Sodium Chloride (Dextrose 5%/0.45% Ns 1000 Ml) 1,000 mls @ 60 mls/hr IV .[id number] [facility] Stop: 06/13/17 05:00 Last Admin: 06/12/17 04:09 Dose: 60 mls/hr Insulin Human Regular (Humulin R High) 0 units SC ACHS [facility] PRN Reason: Protocol Last Admin: 06/12/17 12:30 Dose: 7 units Lactulose (Enulose) 20 gm NG BID [facility] Last Admin: 06/12/17 09:14 Dose: Not Given Levothyroxine Sodium (Synthroid) 88 mcg PO 0600 [facility] Last Admin: 06/12/17 06:29 Dose: Not Given Lorazepam (Ativan) 0.5 mg IVP Q6H PRN; Protocol PRN Reason: Anxiety Last Admin: 06/11/17 05:57 Dose: 0.5 mg Lorazepam (Ativan) 1 mg IM Q6H PRN; Protocol PRN Reason: Agitation Metoprolol Succinate (Toprol Xl) 50 mg PO DAILY [facility] Last Admin: 06/12/17 09:15 Dose: Not Given Alpha Lipoic Acid [ Alpha Lipoic Acid] 600 Mg (Home Med) 600 mg PO BID [facility] Last Admin: 06/12/17 09:14 Dose: Not Given Pantoprazole Sodium (Protonix Ec Tab) 40 mg PO 0600 [facility] Last Admin: 06/12/17 06:29 Dose: Not Given Ramipril (Altace) 1.25 mg PO DAILY [facility] Last Admin: 06/12/17 09:14 Dose: Not Given - Labs Labs: 06/11/17 06:00 06/11/17 06:00 PT 12.7 SECONDS (9.4-12.5) H 06/09/17 22:00 INR 1.11 (0.93-1.08) H 06/09/17 22:00 APTT 30.4 Seconds (25.1-36.5) 06/09/17 22:00 - Constitutional Appears: Well, Non-toxic, No Acute Distress - Extremities Exam Extremities Exam: absent: Calf Tenderness Additional comments: VASC: DP and PT pulses palpable 2/4. CFT <3 seconds to all digits. Temperature gradient warm to warm b/l. No edema noted b/l. NEURO: Epicritic and protective sensation grossly diminished b/l. DERM: Ulceration noted to lateral aspect of left 4th digit measuring approximately .5 x .5 x 0.2 cm - wound base is 30% fibrous with 60% granulation tissue in the peripheral. No purulent drainage noted to ulceration site during visitation. No undermining, no tunneling, no odor, no streaking, or increased calor noted. (+)probe to bone. Chronic erythema noted to b/l LE ORTHO: Mild tenderness upon ROM of left 4th digit and upon palpation of ulceration. Minimal pain to palpation to ulceration site. No pain on palpation to b/l calves - Neurological Exam Neurological Exam: Alert, Awake - Psychiatric Exam Psychiatric exam: Normal Affect, Normal Mood Assessment and Plan - Assessment and Plan (Free Text) Assessment: 72 y.o male with PMH of CHF, HTN, HLD, DM, PVD, CKD stage IV, liver cirrhosis AFib s/p ablation is seen and evaluated at bedside ulceration to left fourth digit with h/o OM Plan: Patient seen and evaluated at bedside Plan discussed with attending Dr. Abbasi Afebrile, absent leukocytosis Left foot xray 03/17: No overt radiographic signs of OM at fourth digit. MRI recommended Left foot MRI 03/20: Marrow edema in the fourth proximal and middle phalanx consistent with osteomyelitis Left foot xray 06/10 no acute findings relating to clinical presentation Cleansed with saline solution, wound dressed with Bactroban, dsd Patient will continue to follow patient while in house Ordered Mupricin, to be applied with dressing changes Podiatry will continue to follow patient while in house
--- NOTE | 2017-06-12 16:32 | PN ---
DATE: 06/12/2017 SUBJECTIVE: The patient is seen lying in bed. Daughter is at bedside. He is awake, he is alert, he is comfortable. He is oriented x3. He denies any pain. He denies any shortness of breath. He denies any cough. He denies any nausea, vomiting or diarrhea. PHYSICAL EXAMINATION: GENERAL: Elderly male lying in bed. VITAL SIGNS: Blood pressure 110/56, heart rate 72, respiratory rate 18, temperature 98.1. HEENT: Normocephalic, atraumatic. NECK: Supple, no JVD. LUNGS: Bilateral equal air entry, bilateral equal expansion, no rales. CARDIAC: S1, S2, regular rate and rhythm, no murmur, no rub. ABDOMEN: Obese, distended, soft, nontender, bowel sounds present. EXTREMITIES: No lower extremity edema. INTAKE AND OUTPUT: Not charted. LABORATORY DATA: No new labs except for ammonia, which is 39. CURRENT MEDICATIONS: Ramipril 1.25, Ativan, D5 half-normal saline, aspirin, lactulose, Neurontin, PhosLo, Plavix, Protonix, Synthroid, Toprol XL, Tylenol. ASSESSMENT: 1. Status post acute hepatic encephalopathy, much improved. 2. Hyperammonemia, much improved. 3. Cirrhosis of the liver. 4. Fdq-[id number]-nfdfmqpfb diabetes mellitus. 5. Hypertension. 6. End-stage renal disease. 7. Peripheral vascular disease. PLAN: 1. Clinically no evidence of infection, do not think the patient needs any antibiotics. 2. Mental status is much improved. 3. Blood work on dialysis tomorrow including ammonia level. Selina Garcia MD
--- NOTE | 2017-06-13 01:21 | PN ---
DATE: SUBJECTIVE: The patient is a 72-year-old male with a history of end-stage renal disease on dialysis, also has a history of insulin-dependent diabetes mellitus, hypothyroidism, hepatic failure with a chronically elevated ammonia level, COPD, asbestosis, who was admitted to the [facility] three days ago when the patient became acutely confused after his Tuesday dialysis. This is the second admission in the past month for similar confusion after dialysis on Tuesday. He also has a history of cellulitis/osteomyelitis of the foot, which is being followed by Dr. Abbasi, the product promoter sales person. He is also being followed by Dr. Mejia, the gun club manager, for his hepatic failure and Dr. Shah, the neurologist, for his mental status change. When seen today, the patient is markedly improved from yesterday. Yesterday, he was extremely obtunded, not responding to questions. When seen today, he is sitting up at the edge of the bed. He is awake, alert, and oriented, answers questions appropriately, voices concerns about sores on his buttocks and on his lower legs, also concerns about his IV fluids. PHYSICAL EXAMINATION: VITAL SIGNS: He is afebrile. His blood pressure is 110/56 and his heart rate is 72. LUNGS: Clear anteriorly and posteriorly. HEART: Regular. ABDOMEN: Soft, nontender. EXTREMITIES: There is a slightly pinkish area over the sacrococcygeal area of his buttocks. There also appears to be open superficial sores on bilateral lower legs. ASSESSMENT AND PLAN: The patient has been evaluated by Speech Therapy/Swallowing Evaluation and is allowed regular food with thickened liquids, which he is thankful to receive. We will discontinue his intravenous fluids at this time, maintaining the hep-lock. He is scheduled to go for dialysis in the morning. I understand his dialysis schedule may be cut down to twice a week rather than three times a week. I have also ordered Silvadene dressings for the buttocks and bilateral lower legs. We will continue to follow the patient closely and begin physical therapy in a day or two after his dialysis. Jim Reyes MD [facility] # [phone]
[2017-06-13] MEDS: Pantoprazole 40 mg EC Tab PO SCH (06:26)
[2017-06-13] MEDS: Levothyroxine 88 MCG TAB PO SCH (06:26)
[2017-06-13 06:29] LABS: BASO # 0.04 K/mm3 (0.0-2.0); BASO % 0.7 % (0.0-3.0); EOS # 0.3 (0.0-0.7); EOS % 4.3 % (1.5-5.0); GRAN # 3.27 (1.4-6.5); GRAN % 56.1 % (50.0-68.0); HEMOGLOBIN 10.3 g/dL (14.0-18.0); LYMPH # 1.6 (1.2-3.4); LYMPH % 27.6 % (22.0-35.0); MEAN CELL VOLUME 90.5 fl (80.0-105.0); MEAN CORPUSCULAR HEMOGLOBIN 32.5 pg (25.0-35.0); MEAN CORPUSCULAR HGB CONC 35.9 g/dl (31.0-37.0); MEAN PLATELET VOLUME 11.6 fl (7.0-11.0); MONO # 0.7 (0.1-0.6); MONO % 11.3 % (1.0-6.0); RBC 3.17 10^6/uL (3.5-6.1); RED CELL DISTRIBUTION WIDTH 16.2 % (11.5-14.5); WHITE BLOOD COUNT 5.8 10^3/ul (4.5-11.0)
[2017-06-13 07:06] LABS: ALB/GLOB RATIO 0.8 (1.1-1.8); ALBUMIN 3.2 g/dL (3.0-4.8); CALCIUM 9.4 mg/dL (8.4-10.5)
[2017-06-13 08:30] VITALS: BP 133/64; PULSE 66; RESP 20; TEMP 97.9; O2SAT 99
[2017-06-13] MEDS: Insulin Reg-HIGH-Coverage SC SCH ×3 (08:35→15:39)
--- NOTE | 2017-06-13 08:48 | CON ---
DATE: 06/10/2017 REASON FOR CONSULTATION: Altered mental status, confusion, need for dialysis. HISTORY OF PRESENTING ILLNESS: A 72-year-old male known to me from outpatient hemodialysis. He was brought to the emergency room yesterday by because of increasing confusion, disorientation, lethargy. The patient had stable dialysis on Tuesday. Post dialysis, he was confused. contacted GI and primary and was asked to monitor at home. Subsequently, the patient's mental status worsened and brought him to the emergency room. In the emergency room, he was found to be disoriented, he was found to be agitated. His ammonia level was found to be 225. He received lactulose enema. Had a large bowel movement. His repeat ammonia this morning is 65. The patient is still confused. He is agitated. He seems to be very uncomfortable. He is moving all four extremities. Not responding to any commands. Not recognizing . She denies any history of any cough, shortness of breath, fever, chills. She denies any abdominal pain. PAST MEDICAL AND SURGICAL HISTORY: Cirrhosis of the liver, ascites, NIDDM, hypertension, atrial fibrillation, CHF, CAD, ESRD, anemia of chronic kidney disease, hepatic encephalopathy, hernia repair, left knee replacement, cholecystectomy. FAMILY HISTORY: Noncontributory. SOCIAL HISTORY: No smoking, no alcohol use, no IV drug abuse. ALLERGIES: NO KNOWN DRUG ALLERGIES. MEDICATIONS: Altace 1.25 daily, Protonix, Toprol XL 50, Synthroid 88, lactulose 10 mL daily, insulin, gabapentin, Plavix, PhosLo, aspirin. REVIEW OF SYSTEMS: Unavailable as the patient is unable to cooperate. PHYSICAL EXAMINATION: GENERAL: Obese elderly male lying in bed in moderate distress. VITAL SIGNS: Blood pressure 165/81, heart rate 76, respiratory rate 19, temperature 97.2. HEENT: Normocephalic, atraumatic, positive pallor. NECK: Supple, no JVD. LUNGS: Bilateral equal air entry, bilateral equal expansion, no rales. CARDIAC: S1 and S2,regular rate and rhythm, no murmur, no rub. ABDOMEN: Obese, distended, soft, nontender, bowel sounds present. EXTREMITIES: No lower extremity edema. INTAKE AND OUTPUT: Not charted. LABORATORY DATA: WBC 7.5, hemoglobin 11.5, hematocrit 31, platelets 88. Sodium 142, potassium 3.9, chloride 106, CO2 18. BUN 34, creatinine 2.5, glucose 360, calcium 10.6, albumin 3.9, total bili 1.8, direct bili 1.0, AST 64, ALT 39. Initial ammonia 225, repeat ammonia 67. CT of the head, no acute findings. ASSESSMENT: 1. Hepatic encephalopathy. 2. Elevated total bilirubin. 3. History of cirrhosis of the liver. 4. End-stage renal disease. 5. Wiu-lvcdnmp-ldwqprqdl diabetes mellitus. 6. Hypertension. PLAN: 1. Dialysis today, use Ativan 1 mg p.r.n. 2. Monitor fingersticks. 3. Monitor ammonia level. 4. GI followup. Thank you for the courtesy of this consultation. We will follow this patient with you. Selina Garcia MD
--- NOTE | 2017-06-13 09:16 | PN ---
DATE: 06/11/2017 SUBJECTIVE: This patient was seen and earlier today. The patient is more alert. The patient's ammonia level has come down to 40. The patient's was at bedside. The patient is still not very communicative. PHYSICAL EXAMINATION: VITAL SIGNS: Temperature 98.3, pulse 103, blood pressure 165/81. HEENT: Atraumatic, anicteric. NECK: Supple. HEART: S1, S2 heard. LUNGS: Bilateral air entry present. ABDOMEN: Soft. EXTREMITIES: Have mild patchy erythema noticed in both lower extremities . Left foot dressing noticed. LABORATORY DATA: Hemoglobin 11.2, hematocrit 30.3, WBC is 10.7, platelets 99. Chemistry is BUN 25, creatinine 2.5 post dialysis. The patient's bilirubin went up to 3.2, AST 105, ALT 40, alkaline phosphatase 202. IMPRESSION: 1. This 72-year-old patient with cirrhosis of the liver, decompensated, admitted with hepatic encephalopathy with an ammonia level of 225. The patient did receive lactulose enema, it has been coming down, it is now 40. 2. The patient is still very lethargic, has elevated leukocytes. Rule out sepsis. 3. The patient has bilateral leg erythema. Has osteomyelitis affecting the toe. 4. History of hepatic encephalopathy, ammonia level is coming down. Did receive lactulose. 5. Diabetes mellitus. Sugar still running on the high side, on coverage. The patient is now being started on IV fluid. PLAN: I did discuss with Dr. Garcia. The plan is to do the cultures and empirically start the antibiotics rule out sepsis in this patient and we will also discuss with Dr. Reyes regarding this patient. If the patient continues to be more lethargic, not able to swallow, we will consider NG tube placement and start p.o. nutrition and also lactulose if needed via the NG tube. Thank you very much for allowing me to participate in the care of the patient. Delbert Mejia MD
[2017-06-13] MEDS ORDERED: Silver Sulfadiazine 1% Cream (25 gm) TP SCH (10:00)
--- NOTE | 2017-06-13 10:15 | PN ---
DATE: 06/13/2017 SUBJECTIVE: This patient was seen and evaluated earlier. The patient's was at bedside. The patient appeared much more comfortable. PHYSICAL EXAMINATION: VITAL SIGNS: His temperature was 98.6, blood pressure is 110/56, respirations 18, O2 saturation is 100%. HEENT: Atraumatic. The patient is jaundiced. NECK: Supple. HEART: S1 and S2 heard. LUNGS: Bilateral air entry present. ABDOMEN: Soft. EXTREMITIES: Showed mild erythema present. Dressing present at the left foot. IMPRESSION: This 72-year-old patient with decompensated cirrhosis, admitted with hepatic encephalopathy with elevated ammonia level over 225; it significantly improved, now it is only 39. More alert. End-stage renal disease, on hemodialysis. History of decompensated congestive heart failure, history of atrial fibrillation. The patient is more alert now, but has some difficulty in swallowing, waiting for a swallowing evaluation. Rule out sepsis. The patient had a mild bilateral erythema present. PLAN: Would recommend clinically appears more improved. We will hold off empiric antibiotic therapy now. We will continue to closely follow up with care and suggests further management based on the clinical course. Delbert Mejia MD
[2017-06-13] MEDS: Metoprolol Succinate 50 mg XL Tab PO SCH (10:30)
[2017-06-13] MEDS: Cholecalciferol 1,000 INTLU TAB PO SCH (10:30)
[2017-06-13] MEDS: ALPHA LIPOIC ACID 600 MG PO SCH (11:30)
--- NOTE | 2017-06-13 14:22 | CP.PCM.PN ---
Subjective - Date & Time of Evaluation Date of Evaluation: 06/13/17 Time of Evaluation: 14:21 - Subjective Subjective: Podiatry Progress Note - Dr. Abbasi 72 year old male patient PMHx CHF, HTN, HLD, DM, PVD, CKD Stage 4, afib s/p ablation seen and evaluated at bedside for left foot fourth digit ulceration. Family members present at bedside. Patient is more awake and alert today. Patient reports continued pain to his left 4th digit, unchanged since admission. Patient also complains of wounds on the front of both legs he believe he obtained after he hit his legs "while he was out of it." Patient denies any pain to his legs. Offers no other complaints. Denies N/V/F/D/C/SOB/MOODY /dizziness. Objective - Vital Signs/Intake and Output Vital Signs (last 24 hours): Temp Pulse Resp BP Pulse Ox 97.9 F 66 20 133/64 99 06/13/17 08:29 06/13/17 08:29 06/13/17 08:29 06/13/17 08:29 06/13/17 08:29 Intake and Output: 06/13/17 06/13/17 06:59 18:59 Intake Total 660 Balance 660 - Medications Medications: Current Medications Acetaminophen (Tylenol 650 Mg Supp) 650 mg RC Q6 PRN PRN Reason: Fever >100.4 F Last Admin: 06/10/17 12:53 Dose: 650 mg Aspirin (Ecotrin) 81 mg PO DAILY [facility] Last Admin: 06/12/17 09:14 Dose: Not Given Calcium Acetate (Phoslo) 667 mg PO TID [facility] Last Admin: 06/12/17 17:37 Dose: 667 mg Cholecalciferol (Vitamin D) 2,000 intlu PO DAILY [facility] Last Admin: 06/12/17 09:15 Dose: Not Given Clopidogrel Bisulfate (Plavix) 75 mg PO DAILY [facility] Last Admin: 06/12/17 09:15 Dose: Not Given Gabapentin (Neurontin) 300 mg PO DAILY [facility] PRN Reason: Protocol Last Admin: 06/12/17 10:13 Dose: Not Given Heparin Sodium (Porcine) (Heparin) 2,200 units ICA MOWEFR [facility] Heparin Sodium (Porcine) (Heparin) 2,400 units ICV MOWEFR [facility] Insulin Human Regular (Humulin R High) 0 units SC ACHS [facility] PRN Reason: Protocol Last Admin: 06/13/17 08:35 Dose: 7 units Lactulose (Enulose) 20 gm NG BID [facility] Last Admin: 06/12/17 17:37 Dose: 20 gm Levothyroxine Sodium (Synthroid) 88 mcg PO 0600 [facility] Last Admin: 06/13/17 06:26 Dose: Not Given Metoprolol Succinate (Toprol Xl) 50 mg PO DAILY [facility] Last Admin: 06/12/17 09:15 Dose: Not Given Mupirocin (Bactroban Ointment) 0 gm TOP DAILY [facility] Alpha Lipoic Acid [ Alpha Lipoic Acid] 600 Mg (Home Med) 600 mg PO BID [facility] Last Admin: 06/12/17 17:38 Dose: Not Given Pantoprazole Sodium (Protonix Ec Tab) 40 mg PO 0600 [facility] Last Admin: 06/13/17 06:26 Dose: Not Given Ramipril (Altace) 1.25 mg PO DAILY [facility] Last Admin: 06/12/17 09:14 Dose: Not Given Silver Sulfadiazine (Silvadene 1% 25 Gm) 1 gm TP DAILY [facility] - Labs Labs: 06/13/17 05:00 06/13/17 05:00 PT 12.7 SECONDS (9.4-12.5) H 06/09/17 22:00 INR 1.11 (0.93-1.08) H 06/09/17 22:00 APTT 30.4 Seconds (25.1-36.5) 06/09/17 22:00 - Constitutional Appears: Well, Non-toxic, No Acute Distress - Extremities Exam Additional comments: VASC: DP and PT pulses palpable 2/4. CFT <3 seconds to all digits. Temperature gradient warm to warm b/l. No edema noted b/l. NEURO: Epicritic and protective sensation grossly diminished b/l. DERM: Ulceration noted to lateral aspect of left 4th digit measuring approximately .5 x .5 x 0.2 cm - wound base is 30% fibrous with 60% granulation tissue around wound edges. No purulence, no drainage, no undermining, no tunneling, no odor, no streaking, or increased calor noted. (+)probe to bone. Superficial ulcerations noted to anterior aspect of LLE with epithelialized base and minimal erythema periwound. No drainage, no purulence, no fluctuance, no ascending cellulitis. Superficial ulcerations noted to anterior aspect of RLE with epithelialized base and minimal erythema periwound; no drainage, no purulence, no fluctuance, no ascending cellulitis. ORTHO: Minimal pain to palpation to ulceration site. No pain on palpation anterior legs b/l. - Neurological Exam Neurological Exam: Alert, Awake, Oriented x3 - Psychiatric Exam Psychiatric exam: Normal Affect, Normal Mood Assessment and Plan - Assessment and Plan (Free Text) Assessment: 72 y.o male with PMH of CHF, HTN, HLD, DM, PVD, CKD stage IV, liver cirrhosis AFib s/p ablation with ulceration to left fourth digit with h/o OM and bilateral leg abrasions, stable Plan: Patient seen and evaluated at bedside Plan discussed with attending Dr. Abbasi Afebrile, absent leukocytosis Left foot xray 03/17: No overt radiographic signs of OM at fourth digit. MRI recommended Left foot MRI 03/20: Marrow edema in the fourth proximal and middle phalanx consistent with osteomyelitis Left foot xray 06/10 no acute findings relating to clinical presentation Cleansed left 4th digit and bilateral leg wounds with saline solution, wound dressed with Bactroban, dsd Podiatry will continue to follow patient while in house
--- NOTE | 2017-06-13 16:18 | PN ---
DATE: 06/13/2017 NEUROLOGY FOLLOWUP CHIEF COMPLAINT: Altered mental status. SUBJECTIVE: The patient is more awake, sitting at the edge of bed, in no acute distress, being treated for hepatic encephalopathy. His ammonia is much better; today, it is 44. GI note reviewed and appreciated. PAST MEDICAL HISTORY: , history of cirrhosis of liver, ascites, [id number]-scmiazzdi diabetes mellitus, hypertension, AFib, CHF, CAD, end-stage renal disease, anemia of chronic kidney disease, hepatic encephalopathy, left knee replacement, hernia repair, cholecystectomy. FAMILY HISTORY: Noncontributory. SOCIAL HISTORY: No illicit drug use, smoking or EtOH abuse at this time. ALLERGIES: NO KNOWN DRUG ALLERGIES. MEDICATIONS: Reviewed by nurse reconciliation sheet. REVIEW OF SYSTEMS: A 14-point review of systems negative except as per the HPI. PHYSICAL EXAMINATION: VITAL SIGNS: Temperature 97.9, pulse 86, blood pressure /64, respiratory rate 20, oxygen saturation 99% by nasal cannula. GENERAL: Patient sitting up in bed, in no acute distress, is mildly obese. HEENT: Head is atraumatic, normocephalic. PERRLA. Extraocular muscles intact. NECK: Supple. No JVD, no adenopathy noted. LUNGS: Clear to auscultation. No adventitious sounds. HEART: S1, S2, regular rate and rhythm. No murmurs, rubs or gallops. ABDOMEN: Obese, distended, soft, nontender. Bowel sounds are present. EXTREMITIES: No clubbing. Peripheral pulse 2+ felt bilaterally. NEUROLOGIC: Patient is alert, oriented to person, place, month and year. Recall after 5 minutes is 0/3. Poor attention span, slow thought process. Cranial nerves II through XII intact. Motor: Moves all extremities equally. No pronator drift seen. Sensory: Light touch and pinprick decreased up to the calves bilaterally. Decreased vibration up to the toes. DTRs are 2+ throughout and 1 at the knees and ankles. Coordination: Ggewcd-jc-[id number] intact. Mild asterixis, has improved when the hands are outstretched. Gait is deferred for now. LABORATORY DATA: Sodium is 140, potassium 3.8, chloride 105, carbon dioxide 23, BUN of 49, creatinine of 2.7, random glucose 274. ASSESSMENT AND PLAN: This is a 72-year-old male with history of cirrhosis of liver, ascites, qrs-yhgdszf-gysyskpws diabetes mellitus, hypertension, atrial fibrillation, congestive heart failure, coronary artery disease, end-stage renal disease, anemia of chronic kidney disease, history of left knee replacement, came with increasing confusion, disorientation, lethargy, status post dialysis and had worsening altered mental status and found to have ammonia level initially of 225 and received lactulose and had large bowel movement, ammonia now today is 44, is doing much better. He is more alert, following simple commands. No focal neurological deficits except for some mild diabetic peripheral neuropathy features on examination. RECOMMENDATIONS: Overall recommend: 1. Monitor electrolytes and correct accordingly. Follow up with Nephrology in terms of his electrolyte derangement and chronic kidney disease. 2. Monitor ammonia level. 3. Avoid hypoglycemic and hyperglycemic accelerations. Keep blood sugars between 140 to 180. 4. Follow up with GI and continue with lactulose b.i.d. 5. Continue with gabapentin 300 mg p.o. daily for neuropathic relief. 6. Continue with aspirin 81, Plavix 75 for stroke prevention. Once again, he will likely need PT and OT evaluation. Thank you for this followup. Asad Shah MD
--- NOTE | 2017-06-14 06:06 | PN ---
DATE: SUBJECTIVE: This patient was seen and evaluated earlier today. The patient's was at bedside. More alert. Awaiting for Speech Therapy for swallowing evaluation at the time I saw the patient. The patient's mentioned to me that even post dialysis, at times he becomes like this. PHYSICAL EXAMINATION: VITAL SIGNS: Temperature is afebrile at 97.6, pulse 66, and blood pressure 133/64. HEENT: Atraumatic, anicteric. NECK: Supple. HEART: S1 and S2 heard. LUNGS: Bilateral air entry present. ABDOMEN: Soft. There is no mass palpable. No tenderness. EXTREMITIES: The patient has bilateral mild erythema present and left leg dressing present. LABORATORY DATA: Hemoglobin is 10.3, hematocrit 28.7, WBC 5.8, and platelets 91. Chemistry: Total bilirubin 1.9, AST 68, and ALT 147. BUN 49, creatinine 2.7, alkaline phosphatase 174, and ammonia is 44. IMPRESSION AND PLAN: This is a 72-year-old patient with wfkpq-ni-juwnwmk kidney disease, admitted with a change in mental status post dialysis. The patient had an elevated ammonia level over 200. The patient is more alert now. The concern is that many times patient has these episodes after dialysis. One of the possibilities to be considered is that it could be a low perfusion with decompensation of the liver as differential diagnosis, should be concerned about it. Thank you for allowing us to participate in the care of this patient. Delbert Mejia MD
== END 2017-06-13 16:21 | DRG 441 ==
LOC: ED 21:17 → ERH 23:06 → 3RNO 06-10 00:08
PROVIDERS: ADMIT Internal Medicine; ATTEND Internal Medicine
PROC: 5A1D70Z Performance of Urinary Filtration, Intermittent, Less than 6 Hours Per Day (ICD-10-PCS; principal; 2017-06-10)
PROC: 5A1D70Z Performance of Urinary Filtration, Intermittent, Less than 6 Hours Per Day (ICD-10-PCS; 2017-06-13)
DX: K72.00 Acute and subacute hepatic failure without coma (principal); N18.6 End stage renal disease; G93.41 Metabolic encephalopathy; I13.2 Hypertensive heart and chronic kidney disease with heart failure and with stage 5 chronic kidney disease, or end stage renal disease; M86.9 Osteomyelitis, unspecified; E11.621 Type 2 diabetes mellitus with foot ulcer; L97.529 Non-pressure chronic ulcer of other part of left foot with unspecified severity; E11.51 Type 2 diabetes mellitus with diabetic peripheral angiopathy without gangrene; Z99.2 Dependence on renal dialysis; I25.10 Atherosclerotic heart disease of native coronary artery without angina pectoris; E11.22 Type 2 diabetes mellitus with diabetic chronic kidney disease; E03.9 Hypothyroidism, unspecified; K74.60 Unspecified cirrhosis of liver; I50.9 Heart failure, unspecified; I48.91 Unspecified atrial fibrillation; D63.1 Anemia in chronic kidney disease; J44.9 Chronic obstructive pulmonary disease, unspecified; E78.5 Hyperlipidemia, unspecified; E11.69 Type 2 diabetes mellitus with other specified complication; E11.42 Type 2 diabetes mellitus with diabetic polyneuropathy; E66.9 Obesity, unspecified; Z68.31 Body mass index [BMI] 31.0-31.9, adult; I25.2 Old myocardial infarction; Z86.718 Personal history of other venous thrombosis and embolism; Z95.5 Presence of coronary angioplasty implant and graft; Z96.652 Presence of left artificial knee joint; Z90.49 Acquired absence of other specified parts of digestive tract; Z87.891 Personal history of nicotine dependence

== ENCOUNTER 2017-06-13 16:21 | Inpatient (IN) | payer OTHER ==
[2017-06-13] MEDS: Insulin Reg-HIGH-Coverage SC SCH (22:26)
[2017-06-14] MEDS ORDERED: Levothyroxine 88 MCG TAB PO SCH ×2 (06:00→10:00)
[2017-06-14] MEDS ORDERED: Pantoprazole 40 mg EC Tab PO SCH ×2 (06:00→10:00)
[2017-06-14] MEDS: Insulin Reg-HIGH-Coverage SC SCH ×4 (07:51→21:52)
--- NOTE | 2017-06-14 08:09 | HP ---
HISTORY OF PRESENT ILLNESS: The patient is a 72-year-old male with a history of end-stage renal disease, on dialysis; insulin-dependent diabetes mellitus; hypothyroidism; hepatic failure; chronically elevated ammonia levels; COPD; asbestosis and cellulitis/osteomyelitis of the foot. He was admitted to [facility] for mental status changes, confusion, which occurred after dialysis. Over last weekend, he cleared remarkably and was doing well and today, he is transferred to the Transitional Care Unit. SOCIAL HISTORY: He is a former smoker and nonalcoholic drinker. He is with children. ALLERGIES: HE HAS NO KNOWN MEDICAL ALLERGIES. MEDICATIONS: Include levothyroxine, metoprolol succinate, vitamin D, NovoLog Mix 70/30, Plavix, lactulose, nitroglycerin tablet sublingually p.r.n., ramipril, alpha lipoic acid, calcium acetate/PhosLo. The patient had physical therapy earlier this morning, was ambulating well, then went to hemodialysis. When seen, he is back in his bed. His is at bedside. The patient looks rather tired, drained, which is his usual state post dialysis. As per the patient's , he usually takes a nap for about 2 hours after dialysis. However, today, he did not nap. He is complaining, however, of pain in the left foot. There is tenderness on palpation around the fourth distal metatarsal. This is the area of his previous osteomyelitis. PHYSICAL EXAMINATION: GENERAL: Patient it is awake, alert and oriented, although he seems rather tired today. HEAD, EYES, EARS, NOSE AND THROAT: Unremarkable. NECK: Supple. There is no lymphadenopathy. No goiter. LUNGS: Clear to auscultation and percussion. HEART: Regular. ABDOMEN: Soft and nontender. EXTREMITIES: There is +1 edema and there is tenderness in the distal metatarsal of the left foot. So the patient will be undergoing physical therapy for ambulation here on TCU. He is continuing to be followed by his consultants, Dr. Dalton from Nephrology, Dr. Shah from Urology, Dr. Abbasi from Podiatry, Dr. Mejia from Gastroenterology. We will continue with his current medication and we will continue to follow the patient closely. Jim Reyes MD [facility] # [id number]
--- NOTE | 2017-06-14 08:12 | PN ---
DATE: 06/14/2017 SUBJECTIVE: This patient was seen and evaluated earlier today. Patient's was at bedside. Patient is more alert, communicative. Patient has been evaluated by the speech therapist for following period and at that time I followed the patient. PHYSICAL EXAMINATION: VITAL SIGNS: Stable. He is afebrile, blood pressure 123/73, respirations 20, O2 saturation 95%. HEENT: Atraumatic, jaundiced. NECK: Supple. HEART: S1, S2 heard. LUNGS: Bilateral air entry present. ABDOMEN: Soft. No tenderness. EXTREMITIES: Mild erythema present bilaterally. Right side foot dressing present. LABORATORY DATA: BUN 114, creatinine 9.6, hemoglobin 8.4, there is no repeat hemoglobin today, yesterday was 8.4. IMPRESSION: This is a 72- year-old patient admitted with acute on chronic kidney failure. Delbert Mejia MD
[2017-06-14] MEDS: Cholecalciferol 1,000 INTLU TAB PO SCH (09:38)
[2017-06-14] MEDS ORDERED: INSULN ASP SC SCH (10:00)
[2017-06-14] MEDS ORDERED: INSULIN ASPART PROT SC SCH (10:00)
[2017-06-14] MEDS ORDERED: Insulin Lispro (humaLOG) MIX 75/25(10 ml) SC SCH (10:00)
[2017-06-14] MEDS ORDERED: [UNRECOGNIZED DRUG - OTHER] SC SCH (10:00)
[2017-06-14] MEDS ORDERED: Lactulose 10 gm/15 ml (Rectal Use) PR SCH (10:00)
[2017-06-14] MEDS ORDERED: Metoprolol Succinate 50 mg XL Tab PO SCH (10:00)
[2017-06-14] MEDS: ALPHA LIPOIC ACID PO SCH ×2 (10:21→17:17)
--- NOTE | 2017-06-14 16:08 | CON ---
DATE: 06/14/2017 REASON FOR CONSULTATION: Anemia, increased urine output. HISTORY OF PRESENT ILLNESS: A 72-year-old male with history of NIDDM, hypertension, cirrhosis of the liver, ascites, ESRD, anemia of chronic kidney disease, was admitted to the medical side with hepatic encephalopathy, altered mental status, delirium, confusion. The patient was found to have elevated ammonia levels. The patient was treated with lactulose. Encephalopathy improved. Now, the patient is receiving physical therapy. He reports increased urine output. Question is whether he is having some renal recovery. PAST MEDICAL AND SURGICAL HISTORY: NIDDM, hypertension, hepatic encephalopathy, cirrhosis of the liver, ascites, anemia,? ESRD, peripheral vascular disease. FAMILY HISTORY: Noncontributory. SOCIAL HISTORY: No smoking, history of alcohol abuse, no drugs. ALLERGIES: NO KNOWN DRUG ALLERGIES. CURRENT MEDICATIONS: Ramipril 1.25 daily, aspirin 81, lactulose 20 g daily, insulin, Neurontin 300 b.i.d., PhosLo 667 t.i.d., Plavix 75, Protonix 40, Synthroid 88, metoprolol 50, Tylenol 650 every 6 p.r.n., vitamin D 2000 daily. REVIEW OF SYSTEMS: All systems are reviewed, pertinent positives as mentioned in the history of presenting illness, rest unremarkable. PHYSICAL EXAMINATION: GENERAL: Elderly male, walking in the hallway. VITAL SIGNS: Blood pressure 115/45, heart rate 81, respiratory rate 16, temperature 98.4. HEENT: Normocephalic, atraumatic, positive pallor. NECK: Supple, no JVD. LUNGS: Bilateral equal air entry, bilateral equal expansion, no rales. CARDIAC: S1 and S2, regular rate and rhythm, no murmur, no rub. ABDOMEN: Distended, soft, nontender, bowel sounds present. EXTREMITIES: No lower extremity edema, chronic stasis changes. INTAKE AND OUTPUT: Not charted. LABORATORY DATA: No new labs. ASSESSMENT: 1. Acute kidney injury superimposed on chronic kidney disease stage 4, end stage renal disease, ? renal recovery. 2. Anemia of chronic disease. 3. No evidence of secondary hyperparathyroidism. 4. Qfh-uxerjvw-keqwyrmjs diabetes mellitus. 5. Hypertension. 6. Cirrhosis of the liver. 7. Peripheral vascular disease. PLAN: 1. Hold dialysis tomorrow. 2. Start 24-hour urine collection for protein and creatinine clearance. 3. Monitor fingersticks and continue insulin coverage. 4. Physical therapy. Selina Garcia MD
[2017-06-14] MEDS: Insulin Lispro (humaLOG) MIX 75/25(10 ml) SC SCH (17:09)
--- NOTE | 2017-06-14 19:25 | CON ---
DATE: 06/14/2017 NEUROLOGY CONSULTATION REASON FOR CONSULTATION: Change in altered mental status. HISTORY OF PRESENT ILLNESS: This is a 72-year-old man with history of xhs-wtgxdoa-npatersae diabetes mellitus, hypertension, cirrhosis of liver, ascites, end-stage renal disease, anemia of chronic kidney disease, presents initially to the [facility] with altered mental status, delirium and confusion. Found to have elevated ammonia level above 200. Found to be having hepatic encephalopathy, which was treated with lactulose and IV hydration and his encephalopathy improved. He is currently on TCU for deconditioned state and to rehabilitation. His last ammonia level was 44, which is much lower than his initial. PAST MEDICAL HISTORY: As above in terms of uam-lfivnvd-ecennfdkn diabetes mellitus, hypertension, hepatic encephalopathy, cirrhosis of liver, ascites, anemia of chronic kidney disease, end-stage renal disease, peripheral vascular disease. FAMILY HISTORY: Noncontributory. SOCIAL HISTORY: No illicit drug use, smoking or EtOH abuse. ALLERGIES: NO KNOWN DRUG ALLERGIES. MEDICATIONS: Reviewed by nurse reconciliation sheet. REVIEW OF SYSTEMS: Fourteen-point review of systems negative except per the HPI. PHYSICAL EXAMINATION: VITAL SIGNS: Temperature 98.7, pulse rate of 79, blood pressure 125/57, respiratory rate of 18, oxygen saturation 100% by room air. GENERAL: The patient is sitting up in bed, in no acute distress. HEENT: Atraumatic, normocephalic. PERRLA. Extraocular muscles intact. NECK: Supple. No JVD. No adenopathy noted. LUNGS: Clear to auscultation. No adventitious sounds. HEART: S1, S2. Normal rate and rhythm. No murmurs, rubs or gallops. ABDOMEN: Obese, soft, nontender and nondistended. Bowel sounds are present. EXTREMITIES: No clubbing. No cyanosis. Peripheral pulses 2+ felt bilaterally. NEUROLOGIC: The patient is alert and oriented to person, place, month and year. Recall after 5 minutes is 0/3. Poor attention span and slow thought process. Cranial nerves II through XII are intact. Motor exam: Moves all extremities equally. Slight increased tone throughout. No pronator drift seen. Sensory exam: Decreased light touch and pinprick up to the calves bilaterally. Decreased vibration at the toes. DTRs are 2+ throughout, 1 at both knees and ankles. Coordination: Dfogkg-tv-qsor intact. No dysmetria noted. No asterixis noted. Gait is deferred for now. LABORATORY DATA: Today's blood sugar is 290. ASSESSMENT AND PLAN: This is a 72-year-old man with past medical history of aqv-acibfyt-pgbjvyzxg diabetes mellitus, hypertension, cirrhosis of the liver, ascites, end-stage renal disease, anemia of chronic kidney disease, who was admitted to [facility] initially for altered mental status, confusion and delirium. Found to have hepatic encephalopathy with ammonia levels of more than 200, averaging 220. We have provided lactulose and mental status currently improved on the medical side. His last ammonia level was 44. He is currently in Transitional Care Unit for rehabilitation. He is doing much better. No asterixis is seen. He is undergoing nephrology management by Dr. Garcia. At this time, I recommend, 1. To monitor electrolytes and correct accordingly. 2. Avoid hypoglycemic and hyperglycemic accelerations and keep blood sugars between 140-180. 3. Follow up with Gastroenterology's recommendations. Continue with the underlying lactulose. 4. Continue with gabapentin 300 mg p.o. daily for neuropathic relief. 5. Continue with aspirin 81 and Plavix 75 for stroke prevention. 6. Continue with physical therapy, occupational therapy and rehabilitation at Transitional Care Unit. Thank you for this consult. Asad Shah MD
--- NOTE | 2017-06-14 23:32 | PN ---
DATE: 06/14/2017 Andrew is in room 319, bed 1 of the transitional care unit with family with him most of the time, initially admitted with altered mental status after dialysis and an elevated ammonia level. He has improved clinically. He now comes to TCU for few more sessions of dialysis and monitoring. Medications adjustments and dialysis free weight monitoring and adjustment along with physical therapy. Berto Reyes MD MTDD
[2017-06-15] MEDS: Pantoprazole 40 mg EC Tab PO SCH (05:35)
[2017-06-15] MEDS: Levothyroxine 88 MCG TAB PO SCH (05:36)
[2017-06-15] MEDS: Insulin Lispro (humaLOG) MIX 75/25(10 ml) SC SCH ×2 (06:58→17:28)
[2017-06-15] MEDS: Insulin Reg-HIGH-Coverage SC SCH ×4 (06:59→22:26)
[2017-06-15] MEDS: Metoprolol Succinate 50 mg XL Tab PO SCH (07:43)
[2017-06-15 07:47] LABS: BASO # 0.05 K/mm3 (0.0-2.0); BASO % 0.9 % (0.0-3.0); EOS # 0.2 (0.0-0.7); EOS % 4.1 % (1.5-5.0); GRAN # 3.07 (1.4-6.5); HEMOGLOBIN 10.9 g/dL (14.0-18.0); LYMPH # 1.5 (1.2-3.4); LYMPH % 28.3 % (22.0-35.0); MEAN CELL VOLUME 89.3 fl (80.0-105.0); MEAN CORPUSCULAR HEMOGLOBIN 33.3 pg (25.0-35.0); MEAN CORPUSCULAR HGB CONC 37.3 g/dl (31.0-37.0); MEAN PLATELET VOLUME 11.4 fl (7.0-11.0); MONO # 0.5 (0.1-0.6); MONO % 9.7 % (1.0-6.0); RBC 3.27 10^6/uL (3.5-6.1); RED CELL DISTRIBUTION WIDTH 15.7 % (11.5-14.5); WHITE BLOOD COUNT 5.4 10^3/ul (4.5-11.0)
[2017-06-15 08:03] LABS: ALB/GLOB RATIO 0.9 (1.1-1.8); ALBUMIN 3.7 g/dL (3.0-4.8); CALCIUM 9.7 mg/dL (8.4-10.5)
--- NOTE | 2017-06-15 08:41 | CON ---
DATE: 06/14/2017 PAST MEDICAL HISTORY: Reviewed. 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 PAST SURGICAL HISTORY: Reviewed. SOCIAL HISTORY: He is a former smoker, and denies alcohol use. He is . His is at his bedside today. ALLERGIES: HE DENIES ANY KNOWN ALLERGIES. MEDICATIONS: Lists are reviewed, extensive, but includes NovoLog and Plavix. REVIEW OF SYSTEMS: A multipoint review of systems performed with the patient and his at bedside, and is essentially negative except for the current medical history. PHYSICAL EXAMINATION: GENERAL: The patient is still fatigued from yesterday's dialysis center, but he is able to rise out of the chair and lie in the bed for examination. He is alert and oriented x3. There is no acute distress present. VITAL SIGNS: Stable. EXTREMITIES: The dressings on both legs and the dressing on the left foot are all removed. There are several centimeters of multiple foci of partial thickness ulcerations on the anterior rae of both legs, and on the right leg on the medial calf also, resulting from the trauma of striking against frames of bed and other obstacles in the patient's recent history. There is local erythema surrounding. There is some slight discharge. There is some slight margins of eschar forming. There is no depth. There is no penetration to the subcutaneous tissue level. There is no lymphangitis and no streaking on either leg. The left fourth toe has a chronic ulceration on the medial side of the TIPJ, which has been under care for the last 2 to 3 months. Previous vascular studies on prior admissions indicated a significant PAD status and the patient will be at risk for an amputation of the toe, and so protracted wound care has been employed given his general medical health and trying to avoid risk of escalating the wound status. Approximately 10 days ago at an office visit, the medial wound was debrided including removal of a partial phalangectomy from the open wound that was exposed. Pathology came back as necrotic tissue and bone with osteomyelitis chronically. The wound did bleed at that time of debridement, and at inspection for the first time since today, the wound appears to be significantly improved. There is reduced erythema if any at the local wound site only. There is no evidence of toe edema or lymphangitis in the toe. The wound margins have minimized. The wound size now appears to be less than 2 mm in diameter and appears to be drying up nicely. IMPRESSION AND PLAN: All 3 wounds, both legs and the left fourth toe, are cleaned with saline and dried. Both rae and calf ulcerations are treated with a Xeroform gauze with ABD dressing and a Kerlix wrap. There is a concerted effort to avoid putting tape onto the patient's skin for fear of ripping off additional skin and making new wounds. The patient's is instructed on to the bandage change technique, which she will be responsible for after discharge. The left fourth toe is painted with Betadine, but at home the patient will use his mupirocin ointment. A single layered dry gauze is placed between the fourth and fifth toe adjacent to the wound without any kind of tape or wrap to keep the bulk down and keep the pressure between the toes down. The gauze bandage is maintained with the patient's diabetic stockings sufficiently. The patient will undergo daily dressing changes while in the hospital by the podiatry resident and is eligible to continue rehabilitation and hopes of being able to discharge back home where we may have off-again on-again problems with dehydration related to his medical conditions and renal dialysis. We will follow up for the residual wound care in the office after discharge. Emery Abbasi DPM
[2017-06-15] MEDS: Cholecalciferol 1,000 INTLU TAB PO SCH (09:47)
--- NOTE | 2017-06-15 13:27 | CP.PCM.PN ---
Subjective - Date & Time of Evaluation Date of Evaluation: 06/15/17 Time of Evaluation: 10:55 - Subjective Subjective: Seen and examined at the bedside earlier today, chart review. Patient is out of bed and his walkingchair, awake and alert denies nausea, vomiting, or abdominal pain reporting regular, no reports of bleeding. Family at bedside. No new complaints. Tolerating lactulose. Objective - Vital Signs/Intake and Output Vital Signs (last 24 hours): Temp Pulse Resp BP Pulse Ox 98.7 F 79 18 138/61 100 06/14/17 16:39 06/15/17 07:43 06/14/17 16:39 06/15/17 09:45 06/14/17 16:39 Intake and Output: 06/15/17 06/15/17 06:59 18:59 Intake Total 420 Balance 420 - Medications Medications: Current Medications Acetaminophen (Tylenol 325mg Tab) 650 mg PO Q6H PRN PRN Reason: Pain, moderate (4-7) Last Admin: 06/14/17 22:23 Dose: 650 mg Aspirin (Ecotrin) 81 mg PO 0800 [facility] Last Admin: 06/15/17 07:42 Dose: 81 mg Calcium Acetate (Phoslo) 667 mg PO WM [facility] Last Admin: 06/15/17 12:32 Dose: 667 mg Cholecalciferol (Vitamin D) 2,000 intlu PO DAILY [facility] Last Admin: 06/15/17 09:47 Dose: 2,000 intlu Clopidogrel Bisulfate (Plavix) 75 mg PO DAILY [facility] Last Admin: 06/15/17 09:47 Dose: 75 mg Gabapentin (Neurontin) 300 mg PO BID [facility] PRN Reason: Protocol Last Admin: 06/15/17 09:46 Dose: 300 mg Insulin Human Regular (Humulin R High) 0 units SC ACHS [facility] PRN Reason: Protocol Last Admin: 06/15/17 12:30 Dose: 12 units Insulin Lispro Protam/Lispro Human (Humalog Mix 75/25) 25 units SC ACBD [facility] Last Admin: 06/15/17 06:58 Dose: 25 units Lactulose (Enulose) 20 gm PO DAILY [facility] Last Admin: 06/15/17 09:46 Dose: 20 gm Levothyroxine Sodium (Synthroid) 88 mcg PO 0600 [facility] Last Admin: 06/15/17 05:36 Dose: 88 mcg Metoprolol Succinate (Toprol Xl) 50 mg PO 0800 [facility] Last Admin: 06/15/17 07:43 Dose: Not Given Nitroglycerin (Nitrostat Sl Tab) 0.4 mg SL Q15MIN PRN PRN Reason: Pain, Mild (1-3) Pantoprazole Sodium (Protonix Ec Tab) 40 mg PO 0600 [facility] Last Admin: 06/15/17 05:35 Dose: 40 mg Ramipril (Altace) 1.25 mg PO DAILY [facility] Last Admin: 06/15/17 09:45 Dose: 1.25 mg - Labs Labs: 06/15/17 07:30 06/15/17 07:30 - Constitutional Appears: No Acute Distress - Head Exam Head Exam: NORMOCEPHALIC - Eye Exam Eye Exam: Normal appearance. absent: Scleral icterus - ENT Exam ENT Exam: Mucous Membranes Moist - Neck Exam Neck Exam: Normal Inspection - Respiratory Exam Respiratory Exam: NORMAL BREATHING PATTERN. absent: Respiratory Distress - Cardiovascular Exam Cardiovascular Exam: +S1, +S2 - GI/Abdominal Exam GI & Abdominal Exam: Soft, Normal Bowel Sounds. absent: Guarding, Tenderness, Rebound - Extremities Exam Extremities Exam: absent: Calf Tenderness, Pedal Edema - Neurological Exam Neurological Exam: Alert, Awake, Oriented x3 - Skin Skin Exam: Dry, Warm Assessment and Plan - Assessment and Plan (Free Text) Assessment: ASSESSMENT: Resolved Altered Mental Status Resolved Hepatic Encephalotpathy Liver Cirrhosis ESRD on dialysis CAD, s/p PTCA DM PLAN: diet as tolerated continue Lactulose 20 gm daily monitor LFT Monitor electrolytes on ASA and Plavix on Protonix 40 mg daily Seen and discussed w/ Dr. Mejia.
--- NOTE | 2017-06-15 19:37 | PN ---
DATE: 06/15/2017 SUBJECTIVE: The patient is seen sitting in bed. He is awake, he is alert, HE is comfortable. He denies any chest pain. He denies any shortness of breath. PHYSICAL EXAMINATION: GENERAL: Elderly male, sitting in bed. VITAL SIGNS: Blood pressure 117/61, heart rate 78, respiratory rate 18, and temperature 98. HEENT: Normocephalic, atraumatic. NECK: Supple, no JVD. LUNGS: Bilateral equal air entry, bilateral equal expansion, no rales. CARDIAC: S1 and S2, regular rate and rhythm, no murmur, no rub. ABDOMEN: Obese, distended, soft, nontender, bowel sounds present. EXTREMITIES: No lower extremity edema. LABORATORY DATA: WBC 5.4, hemoglobin 10.9, hematocrit 29, and platelets 103. Sodium 134, potassium 4, chloride 99, CO2 of 22. BUN 49, creatinine 3.2. Glucose 287. Calcium 9.7, phosphorus 4.4, magnesium 2, albumin 3.7. CURRENT MEDICATIONS: Altace 1.25 b.i.d., Ecotrin, Enulose, insulin, gabapentin 300 b.i.d., PhosLo 667 t.i.d., Plavix, Protonix, Synthroid, Toprol XL, Tylenol, and vitamin D. ASSESSMENT: 1. End stage renal disease, partial renal recovery? 2. Controlled hyperparathyroidism. 3. Mild anemia. 4. Xxf-ixheqca-odzrernoa diabetes mellitus. 5. Hypertension. 6. Cirrhosis of the liver, ascites. 7. Status post hepatic encephalopathy. PLAN: 1. No dialysis today, hold off dialysis until further orders. 2. Follow up 24-hour urine. 3. Continue current medications. 4. Physical therapy. Selina Garcia MD
--- NOTE | 2017-06-15 20:44 | CP.PCM.CON ---
History of Present Illness - History of Present Illness History of Present Illness: Podiatry Consult Note - Dr. Abbasi 72M seen and evaluated at bedside in TCU for left 4th digit ulceration and bilateral leg wounds. Family present at bedside at time of visit. Patient transferred to TCU for further physical therapy. Patient reports minimal pain to left 4th digit; has been working with physical therapy and has been able to ambulate without any issues. Denies any pain to anterior leg wounds. Dressings to bilateral LE clean/dry/intact. Offers no other complaints. Denies N/V/F/D/C/ SOB/MOODY/dizziness. Review of Systems - Review of Systems All systems: reviewed and no additional remarkable complaints except (as per HPI ) Past Patient History - Infectious Disease Hx of Infectious Diseases: None - Past Social History Smoking Status: Former Smoker - CARDIAC Hx Congestive Heart Failure: Yes Hx Hypertension: Yes - PULMONARY Hx Chronic Obstructive Pulmonary Disease (COPD): Yes - NEUROLOGICAL Hx Neurological Disorder: No Other/Comment: AMS AFTER DIALYSIS - HEENT Hx HEENT Problems: Yes Hx Macular Degeneration: Yes - RENAL Hx Renal Failure: Yes (ESRD, dialysis 3x/wk) - ENDOCRINE/METABOLIC Hx Diabetes Mellitus Type 1: Yes Hx Hypothyroidism: Yes - HEMATOLOGICAL/ONCOLOGICAL Hx Blood Disorders: Yes Hx Cirrhosis: Yes - INTEGUMENTARY Hx Dermatological Problems: No - MUSCULOSKELETAL/RHEUMATOLOGICAL Hx Falls: No - GASTROINTESTINAL Hx Gastrointestinal Disorders: No - GENITOURINARY/GYNECOLOGICAL Hx Genitourinary Disorders: Yes - PSYCHIATRIC Hx Psychophysiologic Disorder: No - SURGICAL HISTORY Hx Surgeries: Yes Hx Cardiac Catheterization: Yes (5 stents) Hx Cholecystectomy: Yes Hx Coronary Stent: Yes Hx Musculoskeletal Surgery: Yes (B/L total knee replacement) - ANESTHESIA Hx Anesthesia Reactions: No Meds Allergies/Adverse Reactions: Allergies Allergy/AdvReac Type Severity Reaction Status Date / Time No Known Allergies Allergy Verified 06/13/17 19:24 - Medications Medications: Current Medications Acetaminophen (Tylenol 325mg Tab) 650 mg PO Q6H PRN PRN Reason: Pain, moderate (4-7) Last Admin: 06/14/17 22:23 Dose: 650 mg Aspirin (Ecotrin) 81 mg PO 0800 [facility] Last Admin: 06/15/17 07:42 Dose: 81 mg Calcium Acetate (Phoslo) 667 mg PO WM [facility] Last Admin: 06/15/17 17:34 Dose: 667 mg Cholecalciferol (Vitamin D) 2,000 intlu PO DAILY [facility] Last Admin: 06/15/17 09:47 Dose: 2,000 intlu Clopidogrel Bisulfate (Plavix) 75 mg PO DAILY [facility] Last Admin: 06/15/17 09:47 Dose: 75 mg Gabapentin (Neurontin) 300 mg PO BID [facility] PRN Reason: Protocol Last Admin: 06/15/17 17:33 Dose: 300 mg Insulin Human Regular (Humulin R High) 0 units SC ACHS [facility] PRN Reason: Protocol Last Admin: 06/15/17 17:31 Dose: 4 units Insulin Lispro Protam/Lispro Human (Humalog Mix 75/25) 25 units SC ACBD [facility] Last Admin: 06/15/17 17:28 Dose: 25 units Lactulose (Enulose) 20 gm PO DAILY [facility] Last Admin: 06/15/17 09:46 Dose: 20 gm Levothyroxine Sodium (Synthroid) 88 mcg PO 0600 [facility] Last Admin: 06/15/17 05:36 Dose: 88 mcg Metoprolol Succinate (Toprol Xl) 50 mg PO 0800 [facility] Last Admin: 06/15/17 07:43 Dose: Not Given Nitroglycerin (Nitrostat Sl Tab) 0.4 mg SL Q15MIN PRN PRN Reason: Pain, Mild (1-3) Pantoprazole Sodium (Protonix Ec Tab) 40 mg PO 0600 [facility] Last Admin: 06/15/17 05:35 Dose: 40 mg Ramipril (Altace) 1.25 mg PO DAILY [facility] Last Admin: 06/15/17 09:45 Dose: 1.25 mg Physical Exam - Constitutional Appears: Well, Non-toxic, No Acute Distress - Extremities Exam Additional comments: VASC: DP and PT pulses palpable 2/4. CFT <3 seconds to all digits. Temperature gradient warm to warm b/l. No edema noted b/l. NEURO: Epicritic and protective sensation grossly diminished b/l. DERM: Ulceration noted to lateral aspect of left 4th digit measuring approximately .5 x .5 x 0.2 cm - wound base is 30% fibrous with 60% granulation tissue around wound edges. No purulence, no drainage, no undermining, no tunneling, no odor, no streaking, or increased calor noted. (+)probe to bone. Superficial ulcerations noted to anterior aspect of LLE with epithelialized base and minimal erythema periwound. No drainage, no purulence, no fluctuance, no ascending cellulitis. Superficial ulcerations noted to anterior aspect of RLE with epithelialized base and minimal erythema periwound; no drainage, no purulence, no fluctuance, no ascending cellulitis. ORTHO: Minimal pain to palpation to ulceration site. No pain on palpation anterior legs b/l. - Neurological Exam Neurological exam: Alert, Oriented x3 - Psychiatric Exam Psychiatric exam: Normal Affect, Normal Mood Results - Vital Signs Recent Vital Signs: Last Vital Signs Temp 98.2 F 06/15/17 17:43 Pulse 78 06/15/17 17:43 Resp 18 06/15/17 17:43 BP 117/61 06/15/17 17:43 Pulse Ox 98 06/15/17 17:43 - Labs Result Diagrams: 06/15/17 07:30 06/15/17 07:30 Labs: Laboratory Results - last 24 hr 06/14/17 06/15/17 06/15/17 21:43 05:42 07:30 WBC 5.4 RBC 3.27 L Hgb 10.9 L Hct 29.2 L MCV 89.3 MCH 33.3 MCHC 37.3 H RDW 15.7 H Plt Count 103 L MPV 11.4 H Gran % 57.0 Lymph % (Auto) 28.3 [place] % (Auto) 9.7 H Eos % (Auto) 4.1 Baso % (Auto) 0.9 Gran # 3.07 Lymph # (Auto) 1.5 [place] # (Auto) 0.5 Eos # (Auto) 0.2 Baso # (Auto) 0.05 Sodium Potassium Chloride Carbon Dioxide Anion Gap BUN Creatinine Est GFR ( Amer) Est GFR (Non-Af Amer) POC Glucose (mg/dL) 286 H 248 H Random Glucose Calcium Phosphorus Magnesium Total Bilirubin AST ALT Alkaline Phosphatase Total Protein Albumin Globulin Albumin/Globulin Ratio 06/15/17 06/15/17 06/15/17 07:30 11:21 16:23 WBC RBC Hgb Hct MCV MCH MCHC RDW Plt Count MPV Gran % Lymph % (Auto) [place] % (Auto) Eos % (Auto) Baso % (Auto) Gran # Lymph # (Auto) [place] # (Auto) Eos # (Auto) Baso # (Auto) Sodium 134 Potassium 4.0 Chloride 99 Carbon Dioxide 22 Anion Gap 17 BUN 49 H Creatinine 3.2 H Est GFR ( Amer) 23 Est GFR (Non-Af Amer) 19 POC Glucose (mg/dL) 359 H 249 H Random Glucose 287 H Calcium 9.7 Phosphorus 4.4 Magnesium 2.0 Total Bilirubin 1.5 H AST 50 ALT 40 Alkaline Phosphatase 182 H Total Protein 7.8 Albumin 3.7 Globulin 4.1 Albumin/Globulin Ratio 0.9 L Assessment & Plan - Assessment and Plan (Free Text) Assessment: 72 y.o male with PMH of CHF, HTN, HLD, DM, PVD, CKD stage IV, liver cirrhosis AFib s/p ablation with ulceration to left fourth digit with h/o OM and bilateral leg abrasions, stable Plan: Patient seen and evaluated at bedside Plan discussed with attending Dr. Abbasi Afebrile, absent leukocytosis Continue local wound care - saline cleanse, bactroban, xeroform, DSD to wounds Continue PT/OT Stable per podiatry standpoint Podiatry will continue to follow patient while in house
--- NOTE | 2017-06-15 23:49 | PN ---
DATE: DAILY PROGRESS NOTE SUBJECTIVE: The patient is a 72-year-old male with a history of end-stage renal disease on dialysis, insulin-dependent diabetes mellitus, hypothyroidism, hepatic failure, chronic elevated ammonia levels, COPD, asbestosis and cellulitis with osteomyelitis of the foot, was admitted to [facility] for mental status changes. After last week's dialysis he did well, cleared over the weekend, two days ago was transferred to the Transitional Care Unit for physical therapy. When seen today, he is out in the halls with a rollator walker and his daughter, he is ambulating very well. He is awake, alert and oriented. Physical examination is essentially unremarkable. Vital signs are stable.. This morning laboratories shows the hemoglobin and hematocrit are 10.9 and 29.2. Blood urea nitrogen is 49, creatinine is 3.2. Patient's dialysis schedule has been reduced to twice a week. He will be undergoing dialysis tomorrow. We will be continuing to follow the patient closely. Encouraging physical therapy. Jim Reyes MD
[2017-06-16] MEDS: Pantoprazole 40 mg EC Tab PO SCH (05:29)
[2017-06-16] MEDS: Levothyroxine 88 MCG TAB PO SCH (05:29)
[2017-06-16] MEDS: Insulin Lispro (humaLOG) MIX 75/25(10 ml) SC SCH ×2 (06:52→17:23)
[2017-06-16] MEDS: Insulin Reg-HIGH-Coverage SC SCH ×4 (06:53→21:52)
[2017-06-16 07:19] LABS: URINE CREATININE 100.7 mg/dL
[2017-06-16] MEDS: Metoprolol Succinate 50 mg XL Tab PO SCH (08:10)
[2017-06-16] MEDS: Cholecalciferol 1,000 INTLU TAB PO SCH (10:34)
--- NOTE | 2017-06-16 16:20 | PN ---
DATE: 06/16/2017 SUBJECTIVE: The patient is seen doing physical therapy in the gym. He is awake. He is alert. He is comfortable. Denies any pain. Denies any shortness of breath. PHYSICAL EXAMINATION: GENERAL: Elderly male. VITAL SIGNS: Blood pressure 129/58, heart rate 63, respiratory rate 18, temperature 98.2. HEENT: Normocephalic, atraumatic. NECK: Supple. No JVD. LUNGS: Bilateral equal air entry, bilateral equal expansion. CARDIAC: S1 and S2, regular rate and rhythm, no murmur, no rub. ABDOMEN: Obese, distended, soft, nontender, bowel sounds present. EXTREMITIES: No lower extremity edema. LABORATORY DATA: Creatinine clearance 32, serum creatinine 3.2. Hemoglobin 10.9. CURRENT MEDICATIONS: Altace 1.25 b.i.d., Ecotrin, Enulose, insulin, Neurontin, PhosLo, Plavix, Protonix, Synthroid, Toprol XL, Tylenol, vitamin D. ASSESSMENT: 1. Partial renal recovery, creatinine clearance 32. 2. Anemia of chronic kidney disease. 3. ? hyperphosphatemia. 4. Adn-jkvzblq-yuezyhtls diabetes mellitus. 5. Hypertension. 6. Cirrhosis of liver. 7. Status post hepatic encephalopathy. PLAN: 1. No further dialysis. 2. Check phosphorus levels. 3. Continue other medications at this time. 4. Will require close outpatient followup. Selina Garcia MD
--- NOTE | 2017-06-16 17:43 | CP.PCM.PN ---
Subjective - Date & Time of Evaluation Date of Evaluation: 06/16/17 Time of Evaluation: 07:00 - Subjective Subjective: Podiatry Progress Note - Dr. Abbasi 72M seen and evaluated at bedside in TCU for left 4th digit ulceration and bilateral leg wounds. present at bedside at time of visit. No acute events overnight. Patient denies any pain to left 4th digit ulcer or anterior leg wounds. Ambulating without any issues. Offers no complaints today. Denies N/V/F/ D/C/SOB/MOODY/dizziness. Objective - Vital Signs/Intake and Output Vital Signs (last 24 hours): Temp Pulse Resp BP Pulse Ox 98.2 F 63 18 129/58 L 98 06/15/17 17:43 06/16/17 08:10 06/15/17 17:43 06/16/17 10:33 06/15/17 17:43 - Medications Medications: Current Medications Acetaminophen (Tylenol 325mg Tab) 650 mg PO Q6H PRN PRN Reason: Pain, moderate (4-7) Last Admin: 06/15/17 21:24 Dose: 650 mg Aspirin (Ecotrin) 81 mg PO 0800 [facility] Last Admin: 06/16/17 08:10 Dose: 81 mg Calcium Acetate (Phoslo) 667 mg PO WM [facility] Last Admin: 06/16/17 17:24 Dose: 667 mg Cholecalciferol (Vitamin D) 2,000 intlu PO DAILY [facility] Last Admin: 06/16/17 10:34 Dose: 2,000 intlu Clopidogrel Bisulfate (Plavix) 75 mg PO DAILY [facility] Last Admin: 06/16/17 10:34 Dose: 75 mg Gabapentin (Neurontin) 300 mg PO BID [facility] PRN Reason: Protocol Last Admin: 06/16/17 17:23 Dose: 300 mg Insulin Human Regular (Humulin R High) 0 units SC ACHS [facility] PRN Reason: Protocol Last Admin: 06/16/17 17:24 Dose: 4 units Insulin Lispro Protam/Lispro Human (Humalog Mix 75/25) 25 units SC ACBD [facility] Last Admin: 06/16/17 17:23 Dose: 25 units Lactulose (Enulose) 20 gm PO DAILY [facility] Last Admin: 06/16/17 10:34 Dose: 20 gm Levothyroxine Sodium (Synthroid) 88 mcg PO 0600 [facility] Last Admin: 06/16/17 05:29 Dose: 88 mcg Metoprolol Succinate (Toprol Xl) 50 mg PO 0800 [facility] Last Admin: 06/16/17 08:10 Dose: 50 mg Nitroglycerin (Nitrostat Sl Tab) 0.4 mg SL Q15MIN PRN PRN Reason: Pain, Mild (1-3) Pantoprazole Sodium (Protonix Ec Tab) 40 mg PO 0600 [facility] Last Admin: 06/16/17 05:29 Dose: 40 mg Ramipril (Altace) 1.25 mg PO DAILY [facility] Last Admin: 06/16/17 10:33 Dose: 1.25 mg - Labs Labs: 06/15/17 07:30 06/16/17 06:00 - Constitutional Appears: Well, Non-toxic, No Acute Distress - Extremities Exam Additional comments: VASC: DP and PT pulses palpable 2/4. CFT <3 seconds to all digits. Temperature gradient warm to warm b/l. No edema noted b/l. NEURO: Epicritic and protective sensation grossly diminished b/l. DERM: Ulceration noted to lateral aspect of left 4th digit measuring approximately .5 x .5 x 0.2 cm - wound base is 30% fibrous with 60% granulation tissue around wound edges. No purulence, no drainage, no undermining, no tunneling, no odor, no streaking, or increased calor noted. (+)probe to bone. Superficial ulcerations noted to anterior aspect of LLE with epithelialized base and minimal erythema periwound. No drainage, no purulence, no fluctuance, no ascending cellulitis. Superficial ulcerations noted to anterior aspect of RLE with epithelialized base and minimal erythema periwound; no drainage, no purulence, no fluctuance, no ascending cellulitis. ORTHO: Minimal pain to palpation to ulceration site. No pain on palpation anterior legs b/l. - Neurological Exam Neurological Exam: Alert, Awake, Oriented x3 - Psychiatric Exam Psychiatric exam: Normal Affect, Normal Mood Assessment and Plan - Assessment and Plan (Free Text) Assessment: 72 y.o male with PMH of CHF, HTN, HLD, DM, PVD, CKD stage IV, liver cirrhosis AFib s/p ablation with ulceration to left fourth digit with h/o OM and bilateral leg abrasions, stable Plan: Patient seen and evaluated at bedside with attending Dr. Abbasi Afebrile Continue local wound care - saline cleanse, bactroban, xeroform, DSD to anterior leg wounds; bactroban DSD to left 4th digit Continue PT/OT Stable per podiatry standpoint Podiatry will continue to follow patient while in house
[2017-06-17] MEDS: Pantoprazole 40 mg EC Tab PO SCH (05:33)
[2017-06-17] MEDS: Levothyroxine 88 MCG TAB PO SCH (05:34)
[2017-06-17] MEDS: Insulin Lispro (humaLOG) MIX 75/25(10 ml) SC SCH ×2 (06:47→17:33)
[2017-06-17] MEDS: Insulin Reg-HIGH-Coverage SC SCH ×4 (06:48→21:37)
[2017-06-17] MEDS: Metoprolol Succinate 50 mg XL Tab PO SCH (08:04)
--- NOTE | 2017-06-17 10:53 | CP.PCM.PN ---
Subjective - Date & Time of Evaluation Date of Evaluation: 06/17/17 Time of Evaluation: 10:49 - Subjective Subjective: Podiatry Progress Note - Dr. Abbasi 72M seen and evaluated for left 4th digit ulceration and bilateral leg wounds. present at bedside. No acute events overnight. Offers no complaints regarding left 4th digit ulcer or anterior leg wounds. Tolerating physical therapy, able to ambulate without issues. Patient aware he will have VNS at his house upon discharge for continued local wound care. Denies N/V/F/D/C/SOB/MOODY/ dizziness. Objective - Vital Signs/Intake and Output Vital Signs (last 24 hours): Temp Pulse Resp BP Pulse Ox 97.4 F L 70 20 125/56 L 100 06/17/17 10:39 06/17/17 10:39 06/17/17 10:39 06/17/17 10:39 06/17/17 10:39 - Medications Medications: Current Medications Acetaminophen (Tylenol 325mg Tab) 650 mg PO Q6H PRN PRN Reason: Pain, moderate (4-7) Last Admin: 06/15/17 21:24 Dose: 650 mg Aspirin (Ecotrin) 81 mg PO 0800 [facility] Last Admin: 06/17/17 08:03 Dose: 81 mg Calcium Acetate (Phoslo) 667 mg PO WM [facility] Last Admin: 06/17/17 08:03 Dose: 667 mg Cholecalciferol (Vitamin D) 2,000 intlu PO DAILY [facility] Last Admin: 06/16/17 10:34 Dose: 2,000 intlu Clopidogrel Bisulfate (Plavix) 75 mg PO DAILY [facility] Last Admin: 06/16/17 10:34 Dose: 75 mg Gabapentin (Neurontin) 300 mg PO BID [facility] PRN Reason: Protocol Last Admin: 06/16/17 17:23 Dose: 300 mg Insulin Human Regular (Humulin R High) 0 units SC ACHS [facility] PRN Reason: Protocol Last Admin: 06/17/17 06:48 Dose: 1 units Insulin Lispro Protam/Lispro Human (Humalog Mix 75/25) 25 units SC ACBD [facility] Last Admin: 06/17/17 06:47 Dose: 25 units Lactulose (Enulose) 20 gm PO DAILY [facility] Last Admin: 06/16/17 10:34 Dose: 20 gm Levothyroxine Sodium (Synthroid) 88 mcg PO 0600 [facility] Last Admin: 06/17/17 05:34 Dose: 88 mcg Metoprolol Succinate (Toprol Xl) 50 mg PO 0800 [facility] Last Admin: 06/17/17 08:04 Dose: Not Given Nitroglycerin (Nitrostat Sl Tab) 0.4 mg SL Q15MIN PRN PRN Reason: Pain, Mild (1-3) Pantoprazole Sodium (Protonix Ec Tab) 40 mg PO 0600 [facility] Last Admin: 06/17/17 05:33 Dose: 40 mg Ramipril (Altace) 1.25 mg PO DAILY [facility] Last Admin: 06/16/17 10:33 Dose: 1.25 mg - Labs Labs: 06/15/17 07:30 06/16/17 06:00 - Constitutional Appears: Well, Non-toxic, No Acute Distress - Extremities Exam Extremities Exam: Normal Inspection Additional comments: VASC: DP and PT pulses palpable 2/4. CFT <3 seconds to all digits. Temperature gradient warm to warm b/l. No edema noted b/l. NEURO: Epicritic and protective sensation grossly diminished b/l. DERM: Ulceration noted to lateral aspect of left 4th digit measuring approximately 0.5 x 0.5 x 0.2 cm - wound base is mostly granular with areas of epithelialization; hyperkeratotic rim present. No purulence, no drainage, no undermining, no tunneling, no odor, no streaking, or increased calor noted. Superficial ulcerations noted to anterior aspect of LLE are epithelializing with minimal erythema periwound. No drainage, no purulence, no fluctuance, no ascending cellulitis. Superficial ulcerations noted to anterior and medial aspects of RLE are epithelializing with minimal erythema periwound; no drainage , no purulence, no fluctuance, no ascending cellulitis. ORTHO: Minimal pain on palpation to ulceration site. No pain on palpation anterior legs b/l. - Neurological Exam Neurological Exam: Alert, Awake, Oriented x3 - Psychiatric Exam Psychiatric exam: Normal Affect, Normal Mood Assessment and Plan - Assessment and Plan (Free Text) Assessment: 72 year old male with ulceration to left fourth digit with h/o OM and bilateral leg abrasions, stable Plan: Patient seen and evaluated at bedside with attending Dr. Abbasi Afebrile Continue local wound care - saline cleanse, bactroban, xeroform, DSD to anterior leg wounds; bactroban DSD to left 4th digit Continue PT/OT Stable per podiatry standpoint Podiatry will continue to follow patient while in house
--- NOTE | 2017-06-17 11:26 | CP.PCM.PN ---
<Darline Hannah - Last Filed: 06/17/17 11:23> Subjective - Date & Time of Evaluation Date of Evaluation: 06/17/17 Time of Evaluation: 11:21 - Subjective Subjective: S&E at bedside, chart reviewed, at bedside, report that patient was anxious last night a little confused. He is A/A/O , he came back form PT, tolerating Lactulose and having BM. No reports of bleeding. Objective - Vital Signs/Intake and Output Vital Signs (last 24 hours): Temp Pulse Resp BP Pulse Ox 97.4 F L 70 20 125/56 L 100 06/17/17 10:39 06/17/17 10:39 06/17/17 10:39 06/17/17 10:39 06/17/17 10:39 - Medications Medications: Current Medications Acetaminophen (Tylenol 325mg Tab) 650 mg PO Q6H PRN PRN Reason: Pain, moderate (4-7) Last Admin: 06/15/17 21:24 Dose: 650 mg Aspirin (Ecotrin) 81 mg PO 0800 [facility] Last Admin: 06/17/17 08:03 Dose: 81 mg Calcium Acetate (Phoslo) 667 mg PO WM [facility] Last Admin: 06/17/17 08:03 Dose: 667 mg Cholecalciferol (Vitamin D) 2,000 intlu PO DAILY [facility] Last Admin: 06/16/17 10:34 Dose: 2,000 intlu Clopidogrel Bisulfate (Plavix) 75 mg PO DAILY [facility] Last Admin: 06/16/17 10:34 Dose: 75 mg Gabapentin (Neurontin) 300 mg PO BID [facility] PRN Reason: Protocol Last Admin: 06/16/17 17:23 Dose: 300 mg Insulin Human Regular (Humulin R High) 0 units SC ACHS [facility] PRN Reason: Protocol Last Admin: 06/17/17 06:48 Dose: 1 units Insulin Lispro Protam/Lispro Human (Humalog Mix 75/25) 25 units SC ACBD [facility] Last Admin: 06/17/17 06:47 Dose: 25 units Lactulose (Enulose) 20 gm PO DAILY [facility] Last Admin: 06/16/17 10:34 Dose: 20 gm Levothyroxine Sodium (Synthroid) 88 mcg PO 0600 [facility] Last Admin: 06/17/17 05:34 Dose: 88 mcg Metoprolol Succinate (Toprol Xl) 50 mg PO 0800 [facility] Last Admin: 06/17/17 08:04 Dose: Not Given Nitroglycerin (Nitrostat Sl Tab) 0.4 mg SL Q15MIN PRN PRN Reason: Pain, Mild (1-3) Pantoprazole Sodium (Protonix Ec Tab) 40 mg PO 0600 [facility] Last Admin: 06/17/17 05:33 Dose: 40 mg Ramipril (Altace) 1.25 mg PO DAILY [facility] Last Admin: 06/16/17 10:33 Dose: 1.25 mg - Labs Labs: 06/15/17 07:30 06/16/17 06:00 - Constitutional Appears: No Acute Distress - Eye Exam Eye Exam: Normal appearance. absent: Scleral icterus - ENT Exam ENT Exam: Mucous Membranes Moist - Neck Exam Neck Exam: Normal Inspection - Respiratory Exam Respiratory Exam: Clear to Ausculation Bilateral, NORMAL BREATHING PATTERN. absent: Respiratory Distress - Cardiovascular Exam Cardiovascular Exam: +S1, +S2 - GI/Abdominal Exam GI & Abdominal Exam: Soft, Normal Bowel Sounds. absent: Guarding, Tenderness, Organomegaly, Rebound - Extremities Exam Extremities Exam: absent: Calf Tenderness, Pedal Edema - Neurological Exam Neurological Exam: Alert, Awake, Oriented x3 Assessment and Plan - Assessment and Plan (Free Text) Assessment: ASSESSMENT: Resolved Altered Mental Status Resolved Hepatic Encephalotpathy Liver Cirrhosis ESRD on dialysis CAD, s/p PTCA DM PLAN: check ammonia level diet as tolerated continue Lactulose 20 gm daily monitor LFT Monitor electrolytes on ASA and Plavix on Protonix 40 mg daily Seen and discussed w/ Dr. Mejia. <Delbert Mejia V - Last Filed: 06/17/17 23:48> Objective - Vital Signs/Intake and Output Vital Signs (last 24 hours): Temp Pulse Resp BP Pulse Ox 97 F L 72 18 139/88 94 L 06/17/17 16:49 06/17/17 16:57 06/17/17 16:49 06/17/17 16:49 06/17/17 16:57 - Medications Medications: Current Medications Acetaminophen (Tylenol 325mg Tab) 650 mg PO Q6H PRN PRN Reason: Pain, moderate (4-7) Last Admin: 06/17/17 21:35 Dose: 650 mg Aspirin (Ecotrin) 81 mg PO 0800 [facility] Last Admin: 06/17/17 08:03 Dose: 81 mg Calcium Acetate (Phoslo) 667 mg PO WM [facility] Last Admin: 06/17/17 17:37 Dose: 667 mg Cholecalciferol (Vitamin D) 2,000 intlu PO DAILY [facility] Last Admin: 06/17/17 11:43 Dose: 2,000 intlu Clopidogrel Bisulfate (Plavix) 75 mg PO DAILY [facility] Last Admin: 06/17/17 11:43 Dose: 75 mg Gabapentin (Neurontin) 300 mg PO BID [facility] PRN Reason: Protocol Last Admin: 06/17/17 17:36 Dose: 300 mg Insulin Human Regular (Humulin R High) 0 units SC ACHS [facility] PRN Reason: Protocol Last Admin: 06/17/17 21:37 Dose: 2 units Insulin Lispro Protam/Lispro Human (Humalog Mix 75/25) 25 units SC ACBD [facility] Last Admin: 06/17/17 17:33 Dose: 25 units Lactulose (Enulose) 20 gm PO DAILY [facility] Last Admin: 06/17/17 11:39 Dose: Not Given Levothyroxine Sodium (Synthroid) 88 mcg PO 0600 [facility] Last Admin: 06/17/17 05:34 Dose: 88 mcg Metoprolol Succinate (Toprol Xl) 50 mg PO 0800 [facility] Last Admin: 06/17/17 08:04 Dose: Not Given Nitroglycerin (Nitrostat Sl Tab) 0.4 mg SL Q15MIN PRN PRN Reason: Pain, Mild (1-3) Pantoprazole Sodium (Protonix Ec Tab) 40 mg PO 0600 [facility] Last Admin: 06/17/17 05:33 Dose: 40 mg Ramipril (Altace) 1.25 mg PO DAILY [facility] Last Admin: 06/17/17 11:42 Dose: Not Given - Labs Labs: 06/15/17 07:30 06/16/17 06:00 Attending/Attestation - Attestation I have personally seen and examined this patient.: Yes I have fully participated in the care of the patient.: Yes I have reviewed all pertinent clinical information, including history, physical exam and plan: Yes Notes (Text): This is an addendum to GI progress report dictated by Darline Hannah APN.The patient was seen and examined earlier. Medical records, lab studies, imagings were reviewed. Last 24 hours events reviewed. Agreed with the above treatment plan as outlined in Darline Hannah APN's notes the with the addition of the following 06/17/17 23:48
[2017-06-17] MEDS: Cholecalciferol 1,000 INTLU TAB PO SCH (11:43)
--- NOTE | 2017-06-17 17:37 | PN ---
DATE: SUBJECTIVE: The patient was seen this Tuesday morning in room 319. I sat and spoke with his at great length. The patient is ambulating in the garcia and exercising at the gym. Ammonia level has improved. Clinically, he improved, was doing quite well from neurologic and mental status perspective, but had a rough day yesterday in the late afternoon and to the evening. Now this morning, he is much better. I explained the patient's the multifactorial etiology of his symptoms ranging from his cirrhosis and ascites, ammonia level, diabetes, past/recent infections, coronary artery disease, renal failure, dialysis, dehydration, etc. Awaiting input from renal consultants that his dialysis maybe dropped to only 2 times a week. I would look forward to this as many of these episodes seem to have been related to after dialysis, but we will discuss with Renal. Berto Reyes MD
--- NOTE | 2017-06-17 20:34 | PN ---
DATE: 06/17/2017 SUBJECTIVE: The patient is seen sitting in bed. He is awake. He is alert. He is comfortable. He denies any chest pain. He denies any shortness of breath. He denies any abdominal pain. PHYSICAL EXAMINATION: GENERAL: Elderly male sitting in bed. VITAL SIGNS: Blood pressure 139/88, heart rate 72, respiratory rate 18, temperature 97. HEENT: Normocephalic, atraumatic, positive pallor. NECK: Supple. No JVD. LUNGS: Bilateral equal air entry, no rales. CARDIAC: S1 and S2, regular rate and rhythm, no murmur, no rub. ABDOMEN: Obese, distended, soft, nontender, bowel sounds present. EXTREMITIES: No lower extremity edema. LABORATORY DATA: No new labs today. ASSESSMENT: 1. Acute kidney injury, end-stage renal disease, now with renal recovery. 2. Noninsulin-dependent diabetes mellitus. 3. Hypertension. 4. Cirrhosis of the liver, status post hepatic encephalopathy. 5. Peripheral vascular disease. 6. Anemia of chronic kidney disease. 7. Secondary hyperparathyroidism. PLAN: 1. No further dialysis for the time being. 2. Continue fingerstick monitoring and insulin coverage. 3. Continue antihypertensives. 4. We will continue to monitor need for EFA. 5. Continue phosphate binder for the time being. Selina Garcia MD
[2017-06-18] MEDS: Pantoprazole 40 mg EC Tab PO SCH (05:29)
[2017-06-18] MEDS: Levothyroxine 88 MCG TAB PO SCH (05:30)
[2017-06-18] MEDS: Insulin Lispro (humaLOG) MIX 75/25(10 ml) SC SCH ×2 (07:00→16:28)
[2017-06-18] MEDS: Insulin Reg-HIGH-Coverage SC SCH ×4 (07:00→21:26)
[2017-06-18] MEDS: Metoprolol Succinate 50 mg XL Tab PO SCH (08:02)
--- NOTE | 2017-06-18 10:16 | CP.PCM.PN ---
Subjective - Date & Time of Evaluation Date of Evaluation: 06/18/17 Time of Evaluation: 10:15 - Subjective Subjective: Podiatry Progress Note - Dr. Abbasi 72M seen and evaluated for left 4th digit ulceration and bilateral leg wounds. present at bedside. No acute events overnight. Offers no complaints regarding left 4th digit ulcer or anterior leg wounds. Tolerating physical therapy, able to ambulate without issues. Patient aware he will have VNS at his house upon discharge for continued local wound care. Denies N/V/F/D/C/SOB/MOODY/ dizziness. Objective - Vital Signs/Intake and Output Vital Signs (last 24 hours): Temp Pulse Resp BP Pulse Ox 97.7 F 99 H 20 127/62 99 06/18/17 06:00 06/18/17 08:02 06/18/17 06:00 06/18/17 08:02 06/18/17 06:00 - Medications Medications: Current Medications Acetaminophen (Tylenol 325mg Tab) 650 mg PO Q6H PRN PRN Reason: Pain, moderate (4-7) Last Admin: 06/18/17 05:34 Dose: 650 mg Aspirin (Ecotrin) 81 mg PO 0800 [facility] Last Admin: 06/18/17 08:03 Dose: 81 mg Calcium Acetate (Phoslo) 667 mg PO WM [facility] Last Admin: 06/18/17 08:03 Dose: 667 mg Cholecalciferol (Vitamin D) 2,000 intlu PO DAILY [facility] Last Admin: 06/17/17 11:43 Dose: 2,000 intlu Clopidogrel Bisulfate (Plavix) 75 mg PO DAILY [facility] Last Admin: 06/17/17 11:43 Dose: 75 mg Gabapentin (Neurontin) 300 mg PO BID [facility] PRN Reason: Protocol Last Admin: 06/17/17 17:36 Dose: 300 mg Insulin Human Regular (Humulin R High) 0 units SC ACHS [facility] PRN Reason: Protocol Last Admin: 06/18/17 07:00 Dose: 7 units Insulin Lispro Protam/Lispro Human (Humalog Mix 75/25) 25 units SC ACBD [facility] Last Admin: 06/18/17 07:00 Dose: 25 units Lactulose (Enulose) 20 gm PO DAILY [facility] Last Admin: 06/17/17 11:39 Dose: Not Given Levothyroxine Sodium (Synthroid) 88 mcg PO 0600 [facility] Last Admin: 06/18/17 05:30 Dose: 88 mcg Metoprolol Succinate (Toprol Xl) 50 mg PO 0800 [facility] Last Admin: 06/18/17 08:02 Dose: 50 mg Nitroglycerin (Nitrostat Sl Tab) 0.4 mg SL Q15MIN PRN PRN Reason: Pain, Mild (1-3) Pantoprazole Sodium (Protonix Ec Tab) 40 mg PO 0600 [facility] Last Admin: 06/18/17 05:29 Dose: 40 mg Ramipril (Altace) 1.25 mg PO DAILY [facility] Last Admin: 06/17/17 11:42 Dose: Not Given - Labs Labs: 06/15/17 07:30 06/16/17 06:00 - Constitutional Appears: Well, Non-toxic, No Acute Distress - Extremities Exam Additional comments: VASC: DP and PT pulses palpable 2/4. CFT <3 seconds to all digits. Temperature gradient warm to warm b/l. No edema noted b/l. NEURO: Epicritic and protective sensation grossly diminished b/l. DERM: Ulceration noted to lateral aspect of left 4th digit measuring approximately 0.5 x 0.5 x 0.2 cm - wound base is mostly granular with areas of epithelialization; hyperkeratotic rim present. No purulence, no drainage, no undermining, no tunneling, no odor, no streaking, or increased calor noted. Superficial ulcerations noted to anterior aspect of LLE are epithelializing with minimal erythema periwound. No drainage, no purulence, no fluctuance, no ascending cellulitis. Superficial ulcerations noted to anterior and medial aspects of RLE are epithelializing with minimal erythema periwound; no drainage , no purulence, no fluctuance, no ascending cellulitis. ORTHO: Minimal pain on palpation to ulceration site. No pain on palpation anterior legs b/l. - Neurological Exam Neurological Exam: Alert, Awake, Oriented x3 - Psychiatric Exam Psychiatric exam: Normal Affect, Normal Mood Assessment and Plan - Assessment and Plan (Free Text) Assessment: 72 year old male with ulceration to left fourth digit with h/o OM and bilateral leg abrasions, stable Plan: Patient seen and evaluated at bedside with attending Dr. Abbasi Afebrile Continue local wound care - saline cleanse, bactroban, xeroform, DSD to anterior leg wounds; bactroban DSD to left 4th digit Continue PT/OT Stable per podiatry standpoint Podiatry will continue to follow patient while in house
[2017-06-18 10:40] LABS: BASO # 0.06 K/mm3 (0.0-2.0); BASO % 1.1 % (0.0-3.0); EOS # 0.2 (0.0-0.7); EOS % 3.4 % (1.5-5.0); GRAN # 3.09 (1.4-6.5); GRAN % 54.8 % (50.0-68.0); HEMOGLOBIN 10.7 g/dL (14.0-18.0); LYMPH # 1.5 (1.2-3.4); LYMPH % 26.3 % (22.0-35.0); MEAN CELL VOLUME 90.3 fl (80.0-105.0); MEAN CORPUSCULAR HEMOGLOBIN 32.5 pg (25.0-35.0); MEAN PLATELET VOLUME 11.5 fl (7.0-11.0); MONO # 0.8 (0.1-0.6); MONO % 14.4 % (1.0-6.0); RBC 3.29 10^6/uL (3.5-6.1); RED CELL DISTRIBUTION WIDTH 15.9 % (11.5-14.5); WHITE BLOOD COUNT 5.6 10^3/ul (4.5-11.0)
[2017-06-18 10:50] LABS: CALCIUM 10.7 mg/dL (8.4-10.5)
[2017-06-18] MEDS: Cholecalciferol 1,000 INTLU TAB PO SCH (10:51)
--- NOTE | 2017-06-18 15:34 | PN ---
DATE: 06/18/2017 SUBJECTIVE: The patient is seen sitting in bed. He is awake. He is alert. He is comfortable. He denies any pain. He denies any shortness of breath. PHYSICAL EXAMINATION: GENERAL: Elderly male, sitting in bed. VITAL SIGNS: Blood pressure 138/66, heart rate 73, respiratory rate 18-20, temperature 98. HEENT: Normocephalic, atraumatic. NECK: Supple. No JVD. LUNGS: Bilateral equal air entry, no rales. EXTREMITIES: No lower extremity edema. LABORATORY DATA: Hemoglobin 10.7. Sodium 140, potassium 4.8, chloride 108, CO2 of 22, BUN 60, creatinine 3.0, glucose 225, calcium 10.7, phosphorus 3.6, magnesium 2.2. ASSESSMENT: 1. Off renal replacement therapy for now, chronic kidney disease stage 4. 2. No evidence of hyperphosphatemia. 3. Hypercalcemia. 4. Anemia of chronic disease. 5. Mcb-cuabnis-mxltsywpy diabetes mellitus. 6. Hypertension. 7. Cirrhosis of the liver. PLAN: 1. Discontinue PhosLo. 2. Continue lactulose. 3. Continue Altace. 4. No indication for Aranesp at this time. Continue physical therapy. Selina Garcia MD
--- NOTE | 2017-06-18 20:53 | PN ---
DATE: 06/18/2017 DAILY PROGRESS NOTE SUBJECTIVE: The patient was seen this Tuesday morning in room 319 with his at the bedside. He is awake, alert, clear, in good spirits. A bit happy that dialysis has been held by renal universal branch consultant because of apparently improved creatinine clearance on a recent 24-hour urine collection. LABORATORY DATA: Review of labs today shows creatinine 3 and BUN 60. Patient is in his usual self, awake and clear, was apparently a bit confused this morning. PHYSICAL EXAMINATION: HEAD AND NECK: Unremarkable. LUNGS: Clear. HEART: Regular, not tachycardic. EXTREMITIES: Show no edema. PLAN: We will continue physical therapy and activities in TCU, follow labs and renal function as well as look for volume overload and repeat ammonia level in the morning. Berto Reyes MD
[2017-06-19] MEDS: Levothyroxine 88 MCG TAB PO SCH (05:39)
[2017-06-19] MEDS: Pantoprazole 40 mg EC Tab PO SCH (05:39)
[2017-06-19] MEDS: Insulin Reg-HIGH-Coverage SC SCH ×4 (06:48→22:38)
[2017-06-19] MEDS: Insulin Lispro (humaLOG) MIX 75/25(10 ml) SC SCH ×2 (06:49→17:31)
[2017-06-19 07:39] LABS: BASO # 0.05 K/mm3 (0.0-2.0); BASO % 0.9 % (0.0-3.0); EOS # 0.2 (0.0-0.7); EOS % 4.1 % (1.5-5.0); GRAN # 2.73 (1.4-6.5); GRAN % 50.9 % (50.0-68.0); HEMOGLOBIN 10.7 g/dL (14.0-18.0); LYMPH # 1.8 (1.2-3.4); LYMPH % 33.3 % (22.0-35.0); MEAN CELL VOLUME 89.4 fl (80.0-105.0); MEAN CORPUSCULAR HEMOGLOBIN 32.5 pg (25.0-35.0); MEAN CORPUSCULAR HGB CONC 36.4 g/dl (31.0-37.0); MEAN PLATELET VOLUME 11.5 fl (7.0-11.0); MONO # 0.6 (0.1-0.6); MONO % 10.8 % (1.0-6.0); RBC 3.29 10^6/uL (3.5-6.1); RED CELL DISTRIBUTION WIDTH 15.6 % (11.5-14.5); WHITE BLOOD COUNT 5.4 10^3/ul (4.5-11.0)
[2017-06-19 08:02] LABS: CALCIUM 10.4 mg/dL (8.4-10.5)
[2017-06-19] MEDS: Metoprolol Succinate 50 mg XL Tab PO SCH (08:07)
[2017-06-19] MEDS: Cholecalciferol 1,000 INTLU TAB PO SCH (10:22)
--- NOTE | 2017-06-19 13:18 | CP.PCM.PN ---
Subjective - Date & Time of Evaluation Date of Evaluation: 06/19/17 Time of Evaluation: 13:16 - Subjective Subjective: Podiatry Progress Note - Dr. Abbasi 72M seen and evaluated for left 4th digit ulceration and bilateral leg wounds. present at bedside. No acute events overnight. Offers no complaints regarding left 4th digit ulcer or anterior leg wounds. Tolerating physical therapy, able to ambulate without issues. Patient aware he will have VNS at his house upon discharge for continued local wound care. Denies N/V/F/D/C/SOB/MOODY/ dizziness. Objective - Vital Signs/Intake and Output Vital Signs (last 24 hours): Temp Pulse Resp BP Pulse Ox 97.8 F 100 H 20 120/51 L 100 06/19/17 06:00 06/19/17 08:07 06/19/17 06:00 06/19/17 10:12 06/19/17 06:00 - Medications Medications: Current Medications Acetaminophen (Tylenol 325mg Tab) 650 mg PO Q6H PRN PRN Reason: Pain, moderate (4-7) Last Admin: 06/18/17 21:25 Dose: 650 mg Aspirin (Ecotrin) 81 mg PO 0800 [facility] Last Admin: 06/19/17 08:06 Dose: 81 mg Cholecalciferol (Vitamin D) 2,000 intlu PO DAILY [facility] Last Admin: 06/19/17 10:22 Dose: 2,000 intlu Clopidogrel Bisulfate (Plavix) 75 mg PO DAILY [facility] Last Admin: 06/19/17 10:21 Dose: 75 mg Gabapentin (Neurontin) 300 mg PO BID [facility] PRN Reason: Protocol Last Admin: 06/18/17 17:48 Dose: 300 mg Insulin Human Regular (Humulin R High) 0 units SC ACHS [facility] PRN Reason: Protocol Last Admin: 06/19/17 12:44 Dose: 7 units Insulin Lispro Protam/Lispro Human (Humalog Mix 75/25) 25 units SC ACBD [facility] Last Admin: 06/19/17 06:49 Dose: 25 units Lactulose (Enulose) 20 gm PO DAILY [facility] Last Admin: 06/19/17 10:21 Dose: 20 gm Levothyroxine Sodium (Synthroid) 88 mcg PO 0600 [facility] Last Admin: 06/19/17 05:39 Dose: 88 mcg Metoprolol Succinate (Toprol Xl) 50 mg PO 0800 [facility] Last Admin: 06/19/17 08:07 Dose: 50 mg Nitroglycerin (Nitrostat Sl Tab) 0.4 mg SL Q15MIN PRN PRN Reason: Pain, Mild (1-3) Pantoprazole Sodium (Protonix Ec Tab) 40 mg PO 0600 [facility] Last Admin: 06/19/17 05:39 Dose: 40 mg Ramipril (Altace) 1.25 mg PO DAILY [facility] Last Admin: 06/19/17 10:12 Dose: 1.25 mg - Labs Labs: 06/19/17 07:30 06/19/17 07:30 - Constitutional Appears: Well, Non-toxic, No Acute Distress - Extremities Exam Additional comments: VASC: DP and PT pulses palpable 2/4. CFT <3 seconds to all digits. Temperature gradient warm to warm b/l. No edema noted b/l. NEURO: Epicritic and protective sensation grossly diminished b/l. DERM: Ulceration noted to lateral aspect of left 4th digit measuring approximately 0.5 x 0.5 x 0.2 cm - wound base is mostly granular with areas of epithelialization; hyperkeratotic rim present. No purulence, no drainage, no undermining, no tunneling, no odor, no streaking, or increased calor noted. Superficial ulcerations noted to anterior aspect of LLE are epithelializing with minimal erythema periwound. No drainage, no purulence, no fluctuance, no ascending cellulitis. Superficial ulcerations noted to anterior and medial aspects of RLE are epithelializing with minimal erythema periwound; no drainage , no purulence, no fluctuance, no ascending cellulitis. ORTHO: Minimal pain on palpation to ulceration site. No pain on palpation anterior legs b/l. - Neurological Exam Neurological Exam: Alert, Awake, Oriented x3 - Psychiatric Exam Psychiatric exam: Normal Affect, Normal Mood Assessment and Plan - Assessment and Plan (Free Text) Assessment: 72 year old male with ulceration to left fourth digit with h/o OM and bilateral leg abrasions, stable Plan: Patient seen and evaluated at bedside Discussed with attending Dr. Ayleen Lee Continue local wound care - saline cleanse, bactroban, xeroform, DSD to anterior leg wounds; bactroban DSD to left 4th digit Continue PT/OT Stable per podiatry standpoint Podiatry will continue to follow patient while in house
--- NOTE | 2017-06-19 19:50 | PN ---
DATE: 06/19/2017 SUBJECTIVE: The patient is seen sitting in chair. He is awake, he is alert, he is comfortable. PHYSICAL EXAMINATION GENERAL: Elderly male sitting in chair. VITAL SIGNS: Blood pressure 120/51, heart rate 64, respiratory rate 20, temperature 97.8. HEENT: Normocephalic, atraumatic. NECK: Supple, no JVD. LUNGS: Bilateral equal air entry, bilateral equal expansion. CARDIAC: S1 and S2, regular rate and rhythm, no murmur, no rub. ABDOMEN: Obese, distended, soft, nontender, bowel sounds present. EXTREMITIES: No lower extremity edema. INTAKE AND OUTPUT: Not charted. LABORATORY DATA WBC 5.4, hemoglobin 10.7, hematocrit 29, platelets 98. Sodium 143, potassium 4.3, chloride 111, CO2 18, BUN 55, creatinine 2.7. Glucose 221, calcium 10.4, ammonia 55, phosphorus 3.6. MEDICATIONS: Altace, Ecotrin, lactulose, insulin, Neurontin, Plavix, Protonix, Synthroid, Toprol XL, Tylenol. ASSESSMENT/PLAN: 1. End stage renal disease, now with recovery of renal function, off dialysis. 2. Hypercalcemia, discontinued PhosLo. 3. Sec-iipzded-snrybgynd diabetes mellitus. 4. Hypertension. 5. Cirrhosis of liver. 6. Chronic anemia. PLAN: 1. Stay off PhosLo. 2. No dialysis. 3. Continue fingerstick monitoring and insulin coverage. 4. Continue lactulose. 5. Physical therapy. Selina Garcia MD
--- NOTE | 2017-06-19 23:27 | PN ---
DATE: 06/19/2017 SUBJECTIVE: Patient was seen this Tuesday in Transitional Care Unit with his family at the bedside including his , his sister, and I believe his brother from the [place]. Patient was out with physical therapy walking; he returned to the room. He is comfortable and in good spirits. The biggest concern is that he seems to be getting confused in the afternoon and through the course of the night. I talked to the family about this. It, at times, seems to have been related to dialysis. The dialysis has been held and yet last night and the night before were both rather rough nights for the patient. They asked for Neurology opinion and as well as Dr. Shah to see the patient. We will also do many dementia workups including B12, folic acid, thyroid function, sed rate, etc. In reviewing the patient's meds, he is not receiving any narcotics or analgesics or neuroleptics. However, I state that he is on long-term Neurontin for diabetic peripheral neuropathy. So, I will hold the Neurontin for three days and see if this makes a difference. He would not be a candidate transitional care early. We eight days and see if we can come to get to the bottom of his owning or evening confusional states and we will discuss with Neurology and see if there are suggestion, although I think it would be multifactorial related to his renal disease, kidney disease, diabetes, age, peripheral vascular disease, and perhaps the gabapentin. Berto Reyes MD
[2017-06-20] MEDS: Pantoprazole 40 mg EC Tab PO SCH (05:23)
[2017-06-20] MEDS: Levothyroxine 88 MCG TAB PO SCH (05:24)
[2017-06-20] MEDS: Insulin Reg-HIGH-Coverage SC SCH ×4 (06:46→21:43)
[2017-06-20] MEDS: Insulin Lispro (humaLOG) MIX 75/25(10 ml) SC SCH ×2 (06:46→17:00)
[2017-06-20 07:16] LABS: IRON 86 ug/dL (45-180)
[2017-06-20 07:26] LABS: % IRON SATURATION 27 % (20-55); TOTAL IRON BINDING CAPACITY 321 ug/dL (261-462)
[2017-06-20 07:31] LABS: ALB/GLOB RATIO 0.9 (1.1-1.8); ALBUMIN 3.6 g/dL (3.0-4.8); CALCIUM 10.7 mg/dL (8.4-10.5)
[2017-06-20 07:35] LABS: FREE T4 2.84 ng/dL (0.78-2.19)
[2017-06-20] MEDS: Metoprolol Succinate 50 mg XL Tab PO SCH (07:52)
[2017-06-20] MEDS: Cholecalciferol 1,000 INTLU TAB PO SCH (10:25)
[2017-06-20 12:57] LABS: FOLATE 13.6 ng/mL
--- NOTE | 2017-06-20 15:20 | CP.PCM.PN ---
Subjective - Date & Time of Evaluation Date of Evaluation: 06/20/17 Time of Evaluation: 15:10 - Subjective Subjective: Podiatry Progress Note - Dr. Abbasi 72M seen and evaluated for left 4th digit ulceration and bilateral leg wounds. present at bedside. states last night patient had mild AMS and was oriented to time in place; this lasted until 10AM today. Currently, patient states he feels more awake and alert. Is scheduled for physical therapy this afternoon. Offers no complaints to bilateral LE today. Dressing to bilateral LE clean/dry/intact. Patient will have VNS perform dressing changes upon discharge for continued local wound care. Denies N/V/F/D/C/SOB/MOODY/dizziness. Objective - Vital Signs/Intake and Output Vital Signs (last 24 hours): Temp Pulse Resp BP Pulse Ox 98 F 67 20 122/51 L 99 06/20/17 06:00 06/20/17 07:52 06/20/17 06:00 06/20/17 10:32 06/20/17 06:00 - Medications Medications: Current Medications Acetaminophen (Tylenol 325mg Tab) 650 mg PO Q6H PRN PRN Reason: Pain, moderate (4-7) Last Admin: 06/19/17 22:41 Dose: 650 mg Aspirin (Ecotrin) 81 mg PO 0800 [facility] Last Admin: 06/20/17 08:02 Dose: 81 mg Cholecalciferol (Vitamin D) 2,000 intlu PO DAILY [facility] Last Admin: 06/20/17 10:25 Dose: 2,000 intlu Clopidogrel Bisulfate (Plavix) 75 mg PO DAILY [facility] Last Admin: 06/20/17 10:25 Dose: 75 mg Gabapentin (Neurontin) 300 mg PO BID [facility] PRN Reason: Protocol Last Admin: 06/18/17 17:48 Dose: 300 mg Insulin Human Regular (Humulin R High) 0 units SC ACHS [facility] PRN Reason: Protocol Last Admin: 06/20/17 11:29 Dose: Not Given Insulin Lispro Protam/Lispro Human (Humalog Mix 75/25) 25 units SC ACBD [facility] Last Admin: 06/20/17 06:46 Dose: 25 units Lactulose (Enulose) 20 gm PO DAILY [facility] Last Admin: 06/20/17 10:25 Dose: 20 gm Levothyroxine Sodium (Synthroid) 88 mcg PO 0600 [facility] Last Admin: 06/20/17 05:24 Dose: 88 mcg Metoprolol Succinate (Toprol Xl) 50 mg PO 0800 [facility] Last Admin: 06/20/17 07:52 Dose: Not Given Nitroglycerin (Nitrostat Sl Tab) 0.4 mg SL Q15MIN PRN PRN Reason: Pain, Mild (1-3) Pantoprazole Sodium (Protonix Ec Tab) 40 mg PO 0600 [facility] Last Admin: 06/20/17 05:23 Dose: 40 mg Ramipril (Altace) 1.25 mg PO DAILY [facility] Last Admin: 06/20/17 10:32 Dose: Not Given - Labs Labs: 06/19/17 07:30 06/20/17 06:30 - Constitutional Appears: Well, Non-toxic, No Acute Distress - Extremities Exam Additional comments: VASC: DP and PT pulses palpable 2/4. CFT <3 seconds to all digits. Temperature gradient warm to warm b/l. No edema noted b/l. NEURO: Epicritic and protective sensation grossly diminished b/l. DERM: Ulceration noted to lateral aspect of left 4th digit measuring approximately 0.2 x 0.2 x 0.1 cm nearly resolved, hyperkeratotic rim present. No purulence, no drainage, no undermining, no tunneling, no odor, no streaking, or increased calor noted. Superficial ulcerations noted to anterior aspect of LLE are have epithelialized with minimal erythema periwound. No drainage, no purulence, no fluctuance, no ascending cellulitis. Superficial ulcerations noted to anterior and medial aspects of RLE have epithelialized with minimal erythema periwound; no drainage, no purulence, no fluctuance, no ascending cellulitis. ORTHO: Minimal pain on palpation to ulceration site. No pain on palpation anterior legs b/l. - Neurological Exam Neurological Exam: Alert, Awake, Oriented x3 - Psychiatric Exam Psychiatric exam: Normal Affect, Normal Mood Assessment and Plan - Assessment and Plan (Free Text) Assessment: 72 year old male with ulceration to left fourth digit with h/o OM and resolving bilateral leg abrasions Plan: Patient seen and evaluated at bedside Discussed with attending Dr. Ayleen Lee Continue local wound care - saline cleanse, bactroban, xeroform, DSD to anterior leg wounds; bactroban DSD to left 4th digit Continue PT/OT Stable per podiatry standpoint Advised patient to follow up with Dr. Abbasi in office within 1 week of discharge Podiatry will continue to follow
[2017-06-20 16:55] VITALS: RESP 18
--- NOTE | 2017-06-20 17:21 | PN ---
DATE: 06/20/2017 SUBJECTIVE: The patient is seen sitting in bed. He is awake. He is alert. He is comfortable. PHYSICAL EXAMINATION: GENERAL: Elderly male, in no acute distress. VITAL SIGNS: Blood pressure 122/51, heart rate 67, respiratory rate 20, temperature 98. HEENT: Normocephalic, atraumatic. LUNGS: Bilateral equal air entry, no rales. EXTREMITIES: No lower extremity edema. LABORATORY DATA: Sodium 142, potassium 4.5, chloride 111, CO2 of 18, BUN 53, creatinine 2.7, glucose 214, calcium 10.7, iron saturation 27, iron 86, total bili 1.5, AST 64, ALT 54, albumin 3.6. PTH 40. ASSESSMENT: 1. Chronic kidney disease stage IV, partial renal recovery. 2. Hypercalcemia, iatrogenic, now off phosphate binder and vitamin D supplement. 3. Cfz-kokfqmg-admhpbtej diabetes mellitus. 4. Hypertension. 5. Cirrhosis of the liver. 6. Peripheral vascular disease. 7. Anemia of chronic disease. PLAN: 1. Stay off PhosLo. 2. No indication for MATHEUS at this time. 3. Monitor fingersticks. 4. Continue current antihypertensive regimen. 5. Continue lactulose. Selina Garcia MD
[2017-06-21] MEDS: Pantoprazole 40 mg EC Tab PO SCH (05:37)
[2017-06-21] MEDS: Levothyroxine 88 MCG TAB PO SCH (05:38)
[2017-06-21] MEDS: Insulin Lispro (humaLOG) MIX 75/25(10 ml) SC SCH (07:40)
[2017-06-21] MEDS: Insulin Reg-HIGH-Coverage SC SCH ×2 (07:40→12:34)
[2017-06-21] MEDS: Metoprolol Succinate 50 mg XL Tab PO SCH (08:15)
[2017-06-21] MEDS: Cholecalciferol 1,000 INTLU TAB PO SCH (10:18)
[2017-06-21 10:49] VITALS: BP 121/52; PULSE 65; TEMP 97.3; O2SAT 100
--- NOTE | 2017-06-21 12:45 | PN ---
DATE: 06/20/2017 DAILY PROGRESS NOTE SUBJECTIVE: The patient is a 72-year-old male with a history of end-stage renal disease, on dialysis; insulin-dependent diabetes mellitus; hypothyroidism; hepatic failure; chronic elevated ammonia level; COPD; asbestosis, cellulitis with osteomyelitis of the foot. He was admitted to [facility] for mental status changes after dialysis. His mental status cleared. He was transferred to the Transitional Care Unit where physical therapy has been going well. Of concern is the past few days the patient seems to be getting confused in the evening similar somewhat to owning. It has been determined in the past that his mental status is not related to ammonia levels in the past. The patient has not received any dialysis on the day of these changes in the evening. Medications were considered as to be the etiology and his gabapentin was held. When seen today, he is sitting up on the bed. It is in the evening at 7:00 p.m. The patient is awake, alert and oriented. His , son sister and brother are all at bedside. The patient, however, does seem to be upset because he was initially told his dialysis will be decreased from three times a week to two times a week, then apparently he was told his dialysis may be discontinued altogether; however the dialysis office called to confirm that the patient will be at dialysis tomorrow morning to which the patient is rather upset, feeling like nobody knows what they are doing. After a long discussion with the patient, he was calmed down. He did not seem to be disoriented, just aggravated. PHYSICAL EXAMINATION: LUNGS: Clear. HEART: Regular. ABDOMEN: Soft and nontender. EXTREMITIES: Free of cyanosis, clubbing or edema. VITAL SIGNS: His blood pressure is 124/86. LABORATORY DATA: This morning, his chemistries show a BUN and creatinine to be 53 and 2.7 respectively. Sodium is 142, potassium is 4.5. The patient is looking forward to discharge in the morning and he will be followed as an outpatient. His dialysis catheter will remain in place and will be followed by visiting nurses while at home for dressing changes and flushing. He will also be followed by Podiatry at home for a practically fully healed left foot ulcer. He will also be followed by our office as well as mechanism assembler. FINAL DIAGNOSES: Mental status change, elevated ammonia levels, end-stage renal disease, insulin-dependent diabetes mellitus, hypothyroidism, hepatic failure, chronic obstructive pulmonary disease . Jim Reyes MD
--- NOTE | 2017-06-21 16:08 | PN ---
DATE: 06/21/2017 TIME OF PROGRESS NOTE: 0700 hours. LOCATION: [facility], room 319, bed 1. SUBJECTIVE: The patient was alert, oriented x3, standing in the doorway, speaking with one of the nurses when I arrived this morning, in no acute distress and no complaints of pain or problems with lower extremities. 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 He has improved significantly. His wounds have improved significantly and he is anxious for discharge, hopefully home tomorrow. He has, in the interim, been stopped, possibly temporarily from regular dialysis sessions by the ragman. OBJECTIVE: The patient has diabetes with advanced vascular disease to lower extremities. He had a long-term nonhealing full-thickness bone exposed ulceration of the left fourth toe that was debrided as part of an office-based wound care program approximately 3 weeks ago. Since his hospitalization, he has been receiving regular wound care dressing and at this point in time, there is no evidence of cellulitis. There was no discharge. There was full epithelialization of the medial side of the left fourth toe with no indications of any ongoing ulceration of the toe. The more superficial ulcerations of both legs developed during his dementia to scratch and irritate. His shins have been under regular care and wrapped for last two weeks and on physical examination today, all the wounds on the left anterior leg are healed. The right anterior leg still has a single partial-thickness wound on the mid leg medial calf location that measures approximately 1 cm x 2.5 cm x 0.01 cm in depth, has a clean bed. There was minimal marginal eschar and there was no local cellulitis. IMPRESSION AND PLAN: From the Podiatry perspective, this patient is fit and able for discharge. The left fourth toe and the left leg needs no dressings applied. The patient is allowed to begin normal bath or shower habits, being sure to dry both the extremities well after showering and apply normal topical skin cream and shoes and socks as per his diabetic plan. The right calf single remaining wound can be showered and cleaned and for the next several days until we anticipate full epithelialization, it can be covered with a Bactroban ointment and a simple OptiFlex dressing. Full instructions are given to the who has been fully attentive at the bedside on each of my visits and she will resume her normal wound care requirements as needed. The patient is given instruction to follow up at normal diabetic intervals in my office for diabetic palliative care as well as following for residual ulcer treatment as required. Emery Abbasi DPM
--- NOTE | 2017-06-21 16:23 | PN ---
DATE: SUBJECTIVE: The patient is currently seen resting in bed. He will likely be discharged home later today. His creatinine has remained stable in the mid to upper 2 range. The patient is well compensated. His ammonia level has dropped today with the use of lactulose. The patient has an indwelling PermCath for dialysis, which will likely be removed at the end of the month if his creatinine remains stable. MEDICATIONS: Medication list reviewed. The patient is on ramipril, Benadryl, Ecotrin, Enulose, insulin, Neurontin is on hold, nitroglycerin tablet p.r.n., Plavix, Protonix, Synthroid, Toprol, Tylenol, and vitamin D. PHYSICAL EXAMINATION: VITAL SIGNS: Blood pressure is 121/52, temperature 97.3, respiratory rate is 18 with a pulse of 65. Pulse ox is 100%. HEENT: Shows him to be normocephalic, atraumatic. Conjunctivae are pink. Sclerae are nonicteric. NECK: Supple. No neck vein distention. CHEST: Clear to auscultation and percussion. No rales. No rhonchi or wheezing. CARDIOVASCULAR: Shows a regular rate and rhythm without audible murmurs, rubs or gallops. ABDOMEN: Soft. Bowel sounds normal. No rebound, guarding or masses. EXTREMITIES: Show no lower extremity cyanosis, clubbing or edema. LABORATORY DATA AND IMAGING: Labs from yesterday showed a BUN of 53 with a creatinine of 2.7. Sodium 142, potassium 4.5, chloride 111 with a CO2 of 18. Calcium was 10.7 with an albumin level of 3.6. Last phosphorus level was 3.6. Bilirubin was 1.5, mild elevation of liver enzymes. Last ammonia level was 55 down from a high of 225. ASSESSMENT: 1. Status post end-stage renal disease. The patient has had recovery of enough renal function to come off dialysis. Currently, he has chronic kidney disease stage 4 and as I have discussed with him and his , he will need to be monitored closely in the office. He will return to the office for laboratory work at the end of June. If his creatinine remained stable in the mid to upper 2 range, the PermCath will be removed. 2. Mild hypercalcemia. The patient is off binders. He does remain on a vitamin D supplement which will be discontinued. 3. Euq-[id number] diabetes mellitus. The patient continues on insulin at present. He will remain on this regimen at home. 4. History of hypertension. Blood pressure control is excellent. 5. 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 The patient will remain on lactulose on a daily basis. 6. History of peripheral vascular disease. His toe infection has healed. 7. History of anemia secondary to chronic kidney disease. The patient's hemoglobin is stable at 10-11 range. PLAN: 1. As discussed with detail with the patient and his , he may remain on current medications. 2. I will discontinue vitamin D supplements. 3. He may remain on low-dose Altace therapy. 4. The patient to be cautious about taking any new medication in light of the fact that he is no longer on dialysis and he does have advanced chronic kidney disease. 5. If creatinine remained stable at the end of the month, PermCath will be removed. Manpreet Dalton MD
--- NOTE | 2017-06-21 18:34 | CP.PCM.PN ---
Subjective - Date & Time of Evaluation Date of Evaluation: 06/21/17 Time of Evaluation: 10:55 - Subjective Subjective: Seen and examined at the bedside earlier today, chart was reviewed. No acute overnight events reported. at the bedside. No new complaints. Patient is having bowel movements no reports of melena or bright red blood per rectum. Objective - Vital Signs/Intake and Output Vital Signs (last 24 hours): Temp Pulse Resp BP Pulse Ox 97.3 F L 65 18 121/52 L 100 06/21/17 10:48 06/21/17 10:48 06/21/17 10:48 06/21/17 10:48 06/21/17 10:48 - Labs Labs: 06/19/17 07:30 06/20/17 06:30 - Constitutional Appears: No Acute Distress - Eye Exam Eye Exam: Normal appearance. absent: Scleral icterus - ENT Exam ENT Exam: Mucous Membranes Moist - Respiratory Exam Respiratory Exam: NORMAL BREATHING PATTERN. absent: Respiratory Distress - Cardiovascular Exam Cardiovascular Exam: +S1, +S2 - GI/Abdominal Exam GI & Abdominal Exam: Soft, Normal Bowel Sounds. absent: Guarding, Tenderness, Rebound - Extremities Exam Extremities Exam: absent: Calf Tenderness, Pedal Edema - Neurological Exam Neurological Exam: Alert, Awake, Oriented x3 Assessment and Plan - Assessment and Plan (Free Text) Assessment: ASSESSMENT: Resolved Altered Mental Status Resolved Hepatic Encephalotpathy Liver Cirrhosis ESRD on dialysis CAD, s/p PTCA DM PLAN: l diet as tolerated continue Lactulose 20 gm daily monitor LFT Monitor electrolytes on ASA and Plavix on Protonix 40 mg daily Patient is planned for discharge today, discussed with patient and his at the bedside follow-up in outpatient office. Seen and discussed w/ Dr. Mejia.
== END 2017-06-21 14:13 | disposition home or self-care (01) | DRG 442 ==
LOC: TRCU 16:21
PROVIDERS: ADMIT Internal Medicine; ATTEND Internal Medicine
PROC: F07Z9FZ Gait Training/Functional Ambulation Treatment using Assistive, Adaptive, Supportive or Protective Equipment (ICD-10-PCS; principal; 2017-06-15)
PROC: F07L6YZ Therapeutic Exercise Treatment of Musculoskeletal System - Lower Back / Lower Extremity using Other Equipment (ICD-10-PCS; 2017-06-15)
PROC: F07Z5ZZ Bed Mobility Treatment (ICD-10-PCS; 2017-06-15)
PROC: F08Z4FZ Home Management Treatment using Assistive, Adaptive, Supportive or Protective Equipment (ICD-10-PCS; 2017-06-15)
DX: K72.90 Hepatic failure, unspecified without coma (principal); I13.2 Hypertensive heart and chronic kidney disease with heart failure and with stage 5 chronic kidney disease, or end stage renal disease; N18.4 Chronic kidney disease, stage 4 (severe); N25.81 Secondary hyperparathyroidism of renal origin; R18.8 Other ascites; L97.219 Non-pressure chronic ulcer of right calf with unspecified severity; K74.60 Unspecified cirrhosis of liver; I25.10 Atherosclerotic heart disease of native coronary artery without angina pectoris; D63.1 Anemia in chronic kidney disease; I50.9 Heart failure, unspecified; J44.9 Chronic obstructive pulmonary disease, unspecified; L97.529 Non-pressure chronic ulcer of other part of left foot with unspecified severity; E11.622 Type 2 diabetes mellitus with other skin ulcer; E03.9 Hypothyroidism, unspecified; E11.51 Type 2 diabetes mellitus with diabetic peripheral angiopathy without gangrene; E11.22 Type 2 diabetes mellitus with diabetic chronic kidney disease; E11.621 Type 2 diabetes mellitus with foot ulcer; I48.91 Unspecified atrial fibrillation; E78.5 Hyperlipidemia, unspecified; E83.39 Other disorders of phosphorus metabolism; F03.90 Unspecified dementia, unspecified severity, without behavioral disturbance, psychotic disturbance, mood disturbance, and anxiety; E11.42 Type 2 diabetes mellitus with diabetic polyneuropathy; Z99.2 Dependence on renal dialysis; Z79.4 Long term (current) use of insulin; Z87.891 Personal history of nicotine dependence; Z95.5 Presence of coronary angioplasty implant and graft

== ENCOUNTER 2017-07-25 07:39 | Day surgery (SDC) | payer MEDICARE, OTHER ==
[2017-07-21 12:51] VITALS: BMI 30.9
[2017-07-25 08:17] LABS: HEMOGLOBIN 9.4 g/dL (14.0-18.0); MEAN CELL VOLUME 89.9 fl (80.0-105.0); MEAN CORPUSCULAR HEMOGLOBIN 32.8 pg (25.0-35.0); MEAN CORPUSCULAR HGB CONC 36.4 g/dl (31.0-37.0); MEAN PLATELET VOLUME 11.4 fl (7.0-11.0); RBC 2.87 10^6/uL (3.5-6.1); RED CELL DISTRIBUTION WIDTH 15.2 % (11.5-14.5)
[2017-07-25 08:26] LABS: CALCIUM 9.4 mg/dL (8.4-10.5)
[2017-07-25 08:30] LABS: INR 1.08 (0.93-1.08); PARTIAL THROMBOPLASTIN TIME 31.4 Seconds (25.1-36.5); PROTHROMBIN TIME 12.4 SECONDS (9.4-12.5)
[2017-07-25] MEDS ORDERED: Lidocaine 2% Inj (20ml) ONE (08:54)
[2017-07-25] MEDS ORDERED: Midazolam 2 MG/2 ML VIAL ONE ×2 (08:54→10:17)
[2017-07-25] MEDS ORDERED: Sodium Chloride 0.45% 1,000 ML IV SCH (10:30)
--- NOTE | 2017-07-25 19:51 | VASCULAR ---
PROCEDURE: Removal of tunneled right IJ dialysis catheter. CLINICAL HISTORY: Acute on chronic renal failure. Improving renal function. Off dialysis. Needs tunneled catheter removed. PHYSICIAN(S): Emery Dia M.D. TECHNIQUE: The relative risks and indications of the procedure were explained to the patient and his and consent obtained. The patient was placed supine on the arteriogram table and the tunneled right IJ dialysis catheter prepped and draped in the usual sterile fashion. Conscious sedation and monitoring were provided throughout the procedure by nurse. 1% Xylocaine was used to anesthetize skin and soft tissues along the tunnel. The tunnel and cuff were bluntly dissected. The catheter was removed and pressure applied at the venous insertion site. A single interrupted suture was placed at the exit site. The patient tolerated the procedure well. IMPRESSION: 1. Removal of the patient's tunneled right IJ dialysis catheter.
== END 2017-07-25 12:30 | disposition home or self-care (01) ==
LOC: SDSVAS 07:39
PROVIDERS: ATTEND Radiology Vascular & Interventional Radiology
DX: Z49.01 Encounter for fitting and adjustment of extracorporeal dialysis catheter (principal); N18.9 Chronic kidney disease, unspecified
CPT/HCPCS: 36415; 36589; 80048; 85027; 85610; 85730; 99152; J1644; J2250; J2405; J3010; J7030

== ENCOUNTER 2017-08-18 22:58 | Inpatient (IN) | payer MEDICARE, OTHER ==
[2017-08-18 22:59] VITALS: BMI 30.9
[2017-08-18] MEDS ORDERED: Morphine 2 mg/2 mL syringe IVP STA (23:11)
[2017-08-18] MEDS ORDERED: Nitroglycerin 2% Ointment Foilpak UD TOP STA (23:11)
--- NOTE | 2017-08-18 23:11 | ED PDOC ---
Arrival/HPI - General Chief Complaint: Chest Pain Time Seen by Provider: 08/18/17 23:03 Historian: Patient - History of Present Illness Narrative History of Present Illness (Text): 08/18/17 23:11 Andrew Tanner is a 72 year old male, whose past medical history includes CAD with 5 coronary stents, cardiac ablation, CHF, IDDM, asbestosis, ESRD, DVT, hypertension, hypothyroidism, liver cirrhosis with ascites, and osteomyelitis, who presents to the emergency department brought in by EMS accompanied by family complaining of chest pain. Patient states he was going upstairs at home when he began experiencing mid-sternal chest tightness. Patient took 4 baby aspirin at home but states he is still experiencing some chest tightness. Patient notes he has experienced similar symptoms in the past. Patient denies any on fever, shortness of breath, abdominal pain, nausea, vomiting, back pain, headache, dizziness, or any other complaints. Final Inspector: Dr. Connors Symptom Onset: Gradual Symptom Course: Unchanged Quality: Tightness Activities at Onset: Light Context: Home Past Medical History - Provider Review Nursing Documentation Reviewed: Yes - Infectious Disease Hx of Infectious Diseases: None - Cardiac Hx Congestive Heart Failure: Yes Hx Hypertension: Yes - Pulmonary Hx Chronic Obstructive Pulmonary Disease (COPD): Yes - Neurological Hx Neurological Disorder: No Other/Comment: AMS AFTER DIALYSIS - HEENT Hx HEENT Disorder: Yes (glasses) Hx Macular Degeneration: Yes - Renal Hx Renal Failure: Yes Other/Comment: No longer on HD - Endocrine/Metabolic Hx Diabetes Mellitus Type 1: Yes Hx Hypothyroidism: Yes - Hematological/Oncological Hx Blood Disorders: Yes Hx Cirrhosis: Yes - Integumentary Hx Dermatological Disorder: No - Musculoskeletal/Rheumatological Hx Falls: No - Gastrointestinal Hx Gastrointestinal Disorders: No - Genitourinary/Gynecological Hx Genitourinary Disorders: Yes - Psychiatric Hx Psychophysiologic Disorder: No Hx Substance Use: No - Surgical History Hx Cardiac Catheterization: Yes (5 stents) Hx Cholecystectomy: Yes Hx Coronary Stent: Yes Hx Musculoskeletal Surgery: Yes (B/L total knee replacement) - Anesthesia Hx Anesthesia: Yes Hx Anesthesia Reactions: No Hx Malignant Hyperthermia: No - Suicidal Assessment Feels Threatened In Home Enviroment: No Family/Social History - Physician Review Nursing Documentation Reviewed: Yes Family/Social History: Unknown Family HX Smoking Status: Former Smoker Hx Alcohol Use: No Hx Substance Use: No Allergies/Home Meds Allergies/Adverse Reactions: Allergies No Known Allergies Allergy (Verified 08/18/17 23:07) Home Medications: Home Meds Medication Instructions Recorded Confirmed Levothyroxine [Synthroid] 88 mcg PO DAILY 02/17/17 08/18/17 Metoprolol Succinate [Toprol XL] 50 mg PO DAILY 02/17/17 08/18/17 Insulin Aspart Prot/Insuln Asp 25 unit SC BID 03/12/17 08/18/17 [Novolog Mix 70-30 Vial] Lactulose [Generlac] 10 ml PO DAILY 04/19/17 08/18/17 Ramipril [Altace] 1.25 mg PO DAILY 04/19/17 08/18/17 Liraglutide [Victoza 3-Anuel] 1.2 mg SC QPM 07/21/17 08/18/17 Nitroglycerin [Nitrostat] 0.4 mg SL PRN PRN 07/21/17 08/18/17 Vitamin B Complex [Super B-50 1 tab PO DAILY 07/21/17 08/18/17 Complex] Review of Systems - Physician Review All systems were reviewed & negative as marked: Yes - Review of Systems Constitutional: Normal. absent: Fevers Eyes: Normal ENT: Normal Respiratory: Normal. absent: SOB, Cough Cardiovascular: Chest Pain Gastrointestinal: Normal. absent: Abdominal Pain, Diarrhea, Nausea, Vomiting Genitourinary Male: Normal. absent: Dysuria, Frequency, Hematuria, Urinary Output Changes Musculoskeletal: Normal. absent: Back Pain, Neck Pain Skin: Normal. absent: Rash Neurological: Normal. absent: Headache, Dizziness Endocrine: Normal Hemo/Lymphatic: Normal Psychiatric: Normal Physical Exam Vital Signs Reviewed: Yes Vital Signs Temp Pulse Resp BP Pulse Ox 08/19/17 00:44 145/71 08/18/17 23:03 98 F 90 22 163/74 H 99 Temperature: Afebrile Blood Pressure: Hypertensive Pulse: Regular Respiratory Rate: Normal Appearance: Positive for: Well-Appearing, Non-Toxic, Comfortable Pain Distress: None Mental Status: Positive for: Alert and Oriented X 3 - Systems Exam Head: Present: Atraumatic, Normocephalic Pupils: Present: PERRL Extroacular Muscles: Present: EOMI Conjunctiva: Present: Normal Mouth: Present: Moist Mucous Membranes Neck: Present: Normal Range of Motion. No: Meningeal Signs, MIDLINE TENDERNESS , Paraspinal Tenderness Respiratory/Chest: Present: Clear to Auscultation, Good Air Exchange. No: Respiratory Distress, Accessory Muscle Use Cardiovascular: Present: Regular Rate and Rhythm, Normal S1, S2. No: Murmurs Abdomen: No: Tenderness, Distention, Peritoneal Signs Back: Present: Normal Inspection. No: CVA Tenderness, Midline Tenderness, Paraspinal Tenderness Upper Extremity: Present: Normal Inspection. No: Cyanosis, Edema Lower Extremity: Present: Normal Inspection. No: Edema Neurological: Present: GCS=15, CN II-XII Intact, Speech Normal Skin: Present: Warm, Dry, Normal Color. No: Rashes Psychiatric: Present: Alert, Oriented x 3, Normal Insight, Normal Concentration Medical Decision Making ED Course and Treatment: 08/18/17 23:11 Impression: 72 year old male brought in for mid-sternal chest tightness tonight. Plan: -- EKG -- CXR -- Labs, cardiac enzymes, BNP -- Morphine -- Nitroglycerin -- Reassess and disposition Prior Visits: Notes and results from previous visits were reviewed. Progress Notes: Reviewed EKG, accelerated junctional rhythm at [address]/T wave changes. 08/19/17 00:36 CXR reviewed, shows increased pulmonary vascular markings. 08/19/17 00:[address] Reyes, who is aware and agrees with plan. Accepts pt in to his service. Pt will be admitted to Telemetry for chest pain and chest pain. Requests Dr. Mcgregor and Dr. Dalton on consult. - Lab Interpretations Lab Results: 08/18/17 23:20 08/18/17 23:20 Lab Results 08/18/17 23:20: WBC 4.9, RBC 2.99 L, Hgb 9.9 L, Hct 26.8 L, MCV 89.6, MCH 33.1, MCHC 36.9, RDW 15.2 H, Plt Count 92 L, MPV 11.6 H 08/18/17 23:20: Sodium 141, Potassium 5.1 H, Chloride 109 H, Carbon Dioxide 17 L , Anion Gap 20, BUN 57 H, Creatinine 2.4 H, Est GFR ( Amer) 32, Est GFR ( Non-Af Amer) 27, Random Glucose 299 H, Calcium 9.6, Total Bilirubin 0.9, AST 51 , ALT 48, Alkaline Phosphatase 157 H D, Lactate Dehydrogenase 734 H, Total Creatine Kinase 81, Troponin I 0.03 D, NT-Pro-B Natriuret Pep 2970 H, Total Protein 8.3, Albumin 4.3, Globulin 3.9, Albumin/Globulin Ratio 1.1 08/18/17 23:20: PT 12.7 H, INR 1.11 H, APTT 32.2 I have reviewed the lab results: Yes - RAD Interpretation Radiology Orders: 08/18/17 23:11 CHEST PORTABLE [RAD] Stat Sharepoint Administrator: ED Physician - EKG Interpretation Interpreted by ED Physician: Yes Type: 12 lead EKG - Medication Orders Current Medication Orders: Insulin Human Regular (Humulin R Low) 0 units SC ACHS MOHINDER PRN Reason: Protocol Discontinued Medications Furosemide (Lasix) 40 mg IVP ONCE ONE Stop: 08/19/17 00:38 Last Admin: 08/19/17 00:44 Dose: 40 mg MAR Blood Pressure Document 08/19/17 00:44 CNR (Rec: 08/19/17 00:46 CNR [facility] [id number]) Blood Pressure Blood Pressure (100/60-150/90 mm Hg) 145/71 IVP Administration Document 08/19/17 00:44 CNR (Rec: 08/19/17 00:46 CNR [facility] [id number]) Charges for Administration # of IVP Administrations 1 Morphine Sulfate (Morphine) 2 mg IVP STAT STA Stop: 08/18/17 23:12 Last Admin: 08/18/17 23:30 Dose: 2 mg IVP Administration Document 08/18/17 23:30 CNR (Rec: 08/18/17 23:30 CNR [facility] [id number]) Charges for Administration # of IVP Administrations 1 Nitroglycerin (Nitro-Bid 2% Oint) 1 ea TOP ONCE STA Stop: 08/18/17 23:12 Last Admin: 08/18/17 23:30 Dose: 1 ea - Scribe Statement The provider has reviewed the documentation as recorded by the Scribannabelle Recio Provider Scribe Attestation: All medical record entries made by the Scribe were at my direction and personally dictated by me. I have reviewed the chart and agree that the record accurately reflects my personal performance of the history, physical exam, medical decision making, and the department course for this patient. I have also personally directed, reviewed, and agree with the discharge instructions and disposition. Disposition/Present on Arrival - Present on Arrival Any Indicators Present on Arrival: No History of DVT/PE: No History of Uncontrolled Diabetes: Yes Urinary Catheter: No History of Decub. Ulcer: No History Surgical Site Infection Following: None - Disposition Have Diagnosis and Disposition been Completed?: Yes Diagnosis: CHF (congestive heart failure), Chest pain Disposition: HOSPITALIZED Disposition Time: 01:03 Patient Plan: Admission Condition: STABLE Discharge Instructions (ExitCare): Heart Failure (ED), Chest Pain (ED) Referrals: Jim Reyes MD [Primary Care Provider] - Follow up with primary Forms: [place] (Citizen [place])
[2017-08-18 23:28] LABS: HEMOGLOBIN 9.9 g/dL (14.0-18.0); MEAN CELL VOLUME 89.6 fl (80.0-105.0); MEAN CORPUSCULAR HEMOGLOBIN 33.1 pg (25.0-35.0); MEAN CORPUSCULAR HGB CONC 36.9 g/dl (31.0-37.0); MEAN PLATELET VOLUME 11.6 fl (7.0-11.0); RBC 2.99 10^6/uL (3.5-6.1); RED CELL DISTRIBUTION WIDTH 15.2 % (11.5-14.5); WHITE BLOOD COUNT 4.9 10^3/ul (4.5-11.0)
[2017-08-18 23:36] LABS: INR 1.11 (0.93-1.08); PARTIAL THROMBOPLASTIN TIME 32.2 Seconds (25.1-36.5); PROTHROMBIN TIME 12.7 SECONDS (9.4-12.5)
[2017-08-18 23:46] LABS: TROPONIN I 0.03 ng/mL
[2017-08-19 00:05] LABS: ALB/GLOB RATIO 1.1 (1.1-1.8); ALBUMIN 4.3 g/dL (3.0-4.8); CALCIUM 9.6 mg/dL (8.4-10.5)
[2017-08-19] MEDS: Insulin Reg-LOW-Coverage SC SCH ×4 (08:21→22:37)
[2017-08-19 08:22] LABS: BASO # 0.03 K/mm3 (0.0-2.0); BASO % 0.6 % (0.0-3.0); EOS # 0.1 (0.0-0.7); GRAN # 2.8 (1.4-6.5); GRAN % 59.4 % (50.0-68.0); LYMPH % 21.9 % (22.0-35.0); MEAN CELL VOLUME 89.3 fl (80.0-105.0); MEAN CORPUSCULAR HEMOGLOBIN 33.2 pg (25.0-35.0); MEAN CORPUSCULAR HGB CONC 37.2 g/dl (31.0-37.0); MEAN PLATELET VOLUME 10.7 fl (7.0-11.0); MONO # 0.7 (0.1-0.6); MONO % 15.1 % (1.0-6.0); RBC 2.71 10^6/uL (3.5-6.1); RED CELL DISTRIBUTION WIDTH 15.2 % (11.5-14.5); WHITE BLOOD COUNT 4.7 10^3/ul (4.5-11.0)
[2017-08-19] MEDS ORDERED: Nitroglycerin 2% Ointment Foilpak UD TOP PRN (08:34)
[2017-08-19 08:38] LABS: CALCIUM 9.7 mg/dL (8.4-10.5)
[2017-08-19] MEDS: Levothyroxine 88 MCG TAB PO SCH (08:57)
[2017-08-19] MEDS: Metoprolol Succinate 50 mg XL Tab PO SCH (09:00)
[2017-08-19 09:11] LABS: TROPONIN I 3.32 ng/mL
--- NOTE | 2017-08-19 09:55 | RAD ---
HISTORY: chest pain COMPARISON: 06/09/2017 FINDINGS: LUNGS: No active pulmonary disease. PLEURA: Calcified plaque CARDIOVASCULAR: Mild cardiomegaly OSSEOUS STRUCTURES: No significant abnormalities. VISUALIZED UPPER ABDOMEN: Normal. OTHER FINDINGS: Dialysis catheter IMPRESSION: No active disease.
--- NOTE | 2017-08-19 11:22 | CARD ---
APPROVED REPORT EKG Measurement Heart [id number] <Conclusion> Accelerated Junctional rhythm vs. sinus with 1st degree AV block Possible Inferior infarct, age undetermined ST & T wave abnormality c/w ischemia, new Prolonged QTc
[2017-08-19] MEDS: Enoxaparin 80 mg Syringe SC SCH (14:00)
--- NOTE | 2017-08-19 20:14 | CON ---
DATE: 08/19/2017 REASON FOR THE CONSULTATION AND FOLLOWUP: Chest pain, unstable angina, diabetes, hypertension, hyperlipidemia, coronary artery disease, stage 4 CKD. BRIEF CLINICAL HISTORY: This 72-year-old male with past medical history significant for end-stage renal disease, dialysis last admission, admitted with chest pain, history of non-ST segment myocardial infarction on 04/21/2017 and the patient was started on dialysis, underwent drug-eluting stent in proximal circumflex, mid circumflex, obtuse marginal branch and then the patient had a staged angioplasty of LAD and RCA on 04/21/2017, admitted yesterday with chest pain and shortness of breath. The patient had recently dialysis catheter pulled, was on dialysis and now admitted with chest pain. PAST MEDICAL HISTORY: Significant for chronic renal insufficiency, started on dialysis in 03/2017, now off dialysis. PREVIOUS CARDIAC WORKUP: As follows: The patient had an echocardiogram on 03/2017 that showed ejection fraction of 60% to 65%, trace aortic regurgitation, [id number] aortic stenosis, mild mitral regurgitation, [id number] tricuspid regurgitation, RV systolic pressure of 49. The patient had cardiac catheterization and subsequently PTCA was done on 03/21/2017 that revealed left main is a large caliber vessel with calcification noted. No significant stenosis noted. Bifurcating LAD and circumflex, LAD 80% to 90% stenosis in mid segment. Distal LAD had 90% stenosis noted. Circumflex is large caliber vessel, diffusely calcified, the patient had proximal circumflex 80% stenosis, mid circumflex 90% stenosis, obtuse marginal about 99% stenosis. Right coronary artery was 80% stenosed. Ejection fraction was 60% to 65%, EDP was in the range of 16. Subsequently, the patient underwent PTCA with drug-eluting stent in the proximal and mid circumflex and obtuse marginal 1 and then the patient had staged angioplasty of RCA and LAD on 04/21/2017. At that time, successful PTCA, of mid RCA was done. Stent can be taken. Patent stent to the obtuse marginal 1. No stent was done to the LAD at that time. CURRENT MEDICATION: Aspirin 81 mg daily, insulin, nitroglycerin, Clopidogrel, levothyroxine, metoprolol succinate. REVIEW OF SYSTEMS: As per HPI. PHYSICAL EXAMINATION: VITAL SIGNS: As follows: Temperature afebrile, heart rate 80, blood pressure 117/55. HEENT: PERRLA. Extraocular muscles intact. NECK: Supple. No carotid bruit or thyromegaly. CHEST: Clear to auscultation. HEART: S1 and S2 regular. ABDOMEN: Soft. EXTREMITIES: Clubbing and cyanosis are negative. LABORATORY DATA: Blood workup are as follows: WBC 4.3, hemoglobin 9.2, hematocrit 24.2, platelet count 83. Chemistry shows sodium 140, potassium 4.3, chloride 110, carbon dioxide 21, anion gap of 18, BUN 56 and creatinine 2.5. IMPRESSION: Unstable angina, diabetes, hypertension, hyperlipidemia, coronary artery disease, multiple stents in the circumflex and percutaneous balloon angioplasty of right coronary artery and distal left anterior descending disease. RECOMMENDATIONS: In view of above, since the patient is recently off dialysis and creatinine is 2.4, now chest pain is completely asymptomatic and lot of CAD and atherosclerotic burden and most of them are, not amenable to PCI, we will observe closely and manage medically, if remains asymptomatic, but if troponin keeps trending up or develops recurrent chest pain, then consider cardiac catheterization as high risk. The patient may need dialysis after cardiac cath, was discussed with the patient and family. We will look at lipid profile, TSH. We will add on the troponin in the morning and 8 hours apart and in between keep the Lovenox, beta berkley and further recommendations during hospital course. We will follow with you. If the troponin trends up or the patient remains symptomatic, consider cardiac catheterization high risk on Tuesday and pre treat with mucomyst and hydration. The patient may need dialysis after Cath/ PTCA, discussed with the . Isabella Mcgregor MD TODD
[2017-08-20] MEDS: Pantoprazole 40 mg EC Tab PO SCH (06:19)
[2017-08-20] MEDS: Levothyroxine 88 MCG TAB PO SCH (06:19)
[2017-08-20 08:21] LABS: BASO # 0.02 K/mm3 (0.0-2.0); BASO % 0.4 % (0.0-3.0); EOS # 0.2 (0.0-0.7); EOS % 3.4 % (1.5-5.0); GRAN # 2.6 (1.4-6.5); GRAN % 55.8 % (50.0-68.0); LYMPH # 1.3 (1.2-3.4); LYMPH % 27.8 % (22.0-35.0); MEAN PLATELET VOLUME 11.6 fl (7.0-11.0); MONO # 0.6 (0.1-0.6); MONO % 12.6 % (1.0-6.0); RBC 2.73 10^6/uL (3.5-6.1); RED CELL DISTRIBUTION WIDTH 15.1 % (11.5-14.5); WHITE BLOOD COUNT 4.7 10^3/ul (4.5-11.0)
[2017-08-20] MEDS: Insulin Reg-LOW-Coverage SC SCH ×4 (08:25→22:05)
[2017-08-20] MEDS: Metoprolol Succinate 50 mg XL Tab PO SCH (09:00)
[2017-08-20 09:08] LABS: ALBUMIN 3.7 g/dL (3.0-4.8); CALCIUM 9.3 mg/dL (8.4-10.5)
[2017-08-20 09:24] LABS: TROPONIN I 1.57 ng/mL
[2017-08-20] MEDS ORDERED: Pantoprazole 40 mg EC Tab PO SCH (10:00)
[2017-08-20] MEDS ORDERED: Sod Polystyrene Sulf 15 gm/60 ml Susp PO ONE (10:14)
[2017-08-20] MEDS: Iron Complex Polysacch 150mg Cap PO SCH (10:26)
[2017-08-20] MEDS: Enoxaparin 80 mg Syringe SC SCH (10:27)
[2017-08-20] MEDS: Sodium Chloride 0.9% 1,000 ML IV SCH (11:29)
[2017-08-20 11:45] LABS: IRON 66 ug/dL (45-180)
[2017-08-20 11:54] LABS: % IRON SATURATION 21 % (20-55); TOTAL IRON BINDING CAPACITY 319 ug/dL (261-462)
--- NOTE | 2017-08-20 13:55 | PN ---
DATE: 08/20/2017 SUBJECTIVE: The patient is currently seen on 2R. He presently has no chest pain or shortness of breath. He was evaluated by Cardiology. He has multivessel coronary artery disease, unstable angina with elevated troponin levels. MEDICATIONS: Medication list reviewed. The patient is currently on Altace low-dose, aspirin, insulin, Lovenox, Nitro-Bid ointment, Plavix, Protonix, Synthroid and Toprol. PHYSICAL EXAMINATION INTAKE/OUTPUT: Intake is 480, output is not charted. VITAL SIGNS: Blood pressure 105/50, temperature 98.9, respiratory rate of 20 with a pulse of 67, pulse ox 99%. HEENT: Shows him to be normocephalic, atraumatic. Conjunctivae are pale. Sclerae are nonicteric. NECK: Supple. No neck vein distention. CHEST: Clear to auscultation and percussion. No rales, rhonchi or wheezing. CARDIOVASCULAR: Shows a regular rate and rhythm with aortic stenosis, aortic insufficiency, mitral regurgitation, tricuspid regurgitation. No S3, no S4, no rub. ABDOMEN: Soft. Mild obesity. Bowel sounds normal. No rebound, guarding or masses. EXTREMITIES: Show no lower extremity cyanosis, clubbing or edema. NEUROLOGIC: Shows no asterixis. LABORATORY DATA AND IMAGING: CBC: White blood cell count today 4.7, hemoglobin low at 9, platelet count is 86,000. Chemistries today showed a potassium level of 5.6 up from 4.7. CO2 level 19. Sodium 139 with a chloride of 108. BUN 56 with a creatinine of 2.6. Glucose is 132. Calcium, phosphorus, magnesium level were normal. Troponin levels down from 4.15 to 1.57. Albumin level was 3.7. Ammonia level is pending. ASSESSMENT: 1. Chronic kidney disease, stage IV. He is status post a period of time on dialysis. He did have adequate return of renal function to come off dialysis. His creatinine is absolutely stable in the mid 2 range. There is concern that should he require a cardiac catheterization with a dye study, he can have an acute on chronic event with his kidney function and require dialysis. We are trying to manage him conservatively from a cardiac standpoint in order to not expose him to dye. 2. Mild hyperkalemia. We will restrict the patient's potassium and hold BRIANA inhibition. 3. History of non-insulin dependant diabetes mellitus. The patient is currently on insulin. Glucose control is acceptable. 4. History of atherosclerotic heart disease, status post percutaneous transluminal coronary angioplasty and stents with multivessel coronary artery disease, presently with unstable angina and likely a non-ST elevation myocardial infarction. The patient is again being monitored on telemetry, being followed closely by Cardiology. 5. History of hypertension. Blood pressure control is excellent. 6. History of cirrhosis with bouts of hepatic encephalopathy. Repeat ammonia level is pending. The patient will continue on lactulose on an as needed basis. 7. History of peripheral vascular disease. The patient had a toe infection, which was healed. 8. History of anemia secondary to chronic kidney disease. Baseline hemoglobin is in the 10-11 range. He is currently at 9. The patient will be dosed with Aranesp and we will check his iron levels. PLAN: 1. Strict compliance with a low potassium diet. 2. We will hold ramipril in light of his mild hyperkalemia. 3. Continue to monitor glucose levels. 4. P.r.n. restart lactulose for elevated ammonia level. 5. From a renal standpoint, the patient is stable. We are hoping to avoid any contrast studies. Manpreet Dalton MD
--- NOTE | 2017-08-20 15:57 | PN ---
DATE: 08/20/2017 REASON FOR CONSULTATION AND FOLLOWUP: Chest pain, unstable angina, non-ST segment myocardial infarction, hypertension, hyperlipidemia, coronary artery disease, stage IV CKD, status post removal of dialysis catheter, admitted with unstable angina. SUBJECTIVE: is at the bedside. The patient is walking. Denies any chest pain, but feels like short-winded. OBJECTIVE: GENERAL: Not in any apparent distress. VITAL SIGNS: Temperature is afebrile, heart rate 67, blood pressure 103/49. HEENT: PERRLA, intact. NECK: Supple. No carotid bruits or thyromegaly. CHEST: Clear to auscultation. HEART: S1 and S2, regular. ABDOMEN: Soft. EXTREMITIES: Clubbing and cyanosis negative. LABORATORY DATA: WBC 4.6, hemoglobin 9, hematocrit 24.3, and platelet count 86. Chemistry shows sodium 139, potassium 5.6, chloride 108, carbon dioxide 19, anion gap of 17. BUN 56, creatinine 2.6. TSH 0.2. PRU 302 and this patient is resistant to Plavix. IMPRESSION: A 72-year-old male with past medical history significant for coronary artery disease, status post percutaneous transluminal coronary angioplasty of the circumflex mid and obtuse marginal 1 in 03/2017, and then repeat staged percutaneous transluminal coronary angioplasty of right coronary artery, plain balloon angioplasty of right coronary artery was done on 04/21/2017. Yesterday, he came with an unstable angina, chest pain, positive troponin, and stage IV chronic kidney disease. Recently started on dialysis in March, recently yesterday catheter was removed. The patient was not taken to the clam bed laborer because there is concern of going to failure and the patient is asymptomatic after he came to the hospital. He was started on Lovenox, beta-berkley, and nitrates. The patient is chest pain free. Creatinine is still 2.6, but complaining of shortness of breath. P2Y12 patient is resistant to Plavix. RECOMMENDATIONS: We will start Brilinta, get gentle hydration, start Mucomyst, and monitor renal functions. If renal function remains stable, possible cardiac catheterization on Tuesday. Explained to the patient and the family that there is risk if the patient may need the dialysis post cath and going to failure, but since the patient is having some shortness of breath and if still getting chest pain, then possible cardiac catheterization on Tuesday versus medical treatment, we will decide tomorrow. We will continue gentle hydration. We will follow with you. We will give Kayexalate one dose for high potassium and we will start gentle hydration and discontinue Plavix. As mentioned, we will reassess the patient tomorrow and depending upon tomorrow's BUN, creatinine, and troponin, we will decide for cardiac catheterization. Thank you Dr. Reyes for providing us the opportunity in taking care of Ciro. Isabella Mcgregor MD
[2017-08-20 18:35] LABS: FOLATE 16.7 ng/mL
[2017-08-21] MEDS: Pantoprazole 40 mg EC Tab PO SCH (05:50)
[2017-08-21] MEDS: Sodium Chloride 0.9% 1,000 ML IV SCH (05:52)
[2017-08-21 07:41] LABS: HEMOGLOBIN 8.6 g/dL (14.0-18.0); MEAN CELL VOLUME 88.6 fl (80.0-105.0); MEAN CORPUSCULAR HEMOGLOBIN 32.7 pg (25.0-35.0); MEAN CORPUSCULAR HGB CONC 36.9 g/dl (31.0-37.0); RBC 2.63 10^6/uL (3.5-6.1); RED CELL DISTRIBUTION WIDTH 14.9 % (11.5-14.5); WHITE BLOOD COUNT 4.4 10^3/ul (4.5-11.0)
[2017-08-21 07:58] LABS: ALBUMIN 3.5 g/dL (3.0-4.8); CALCIUM 8.7 mg/dL (8.4-10.5)
[2017-08-21] MEDS: Insulin Reg-LOW-Coverage SC SCH ×4 (08:03→21:28)
[2017-08-21] MEDS: Metoprolol Succinate 50 mg XL Tab PO SCH (08:13)
[2017-08-21 08:22] LABS: TROPONIN I 0.79 ng/mL
--- NOTE | 2017-08-21 08:42 | CP.PCM.PN ---
Subjective - Date & Time of Evaluation Date of Evaluation: 08/21/17 Time of Evaluation: 06:45 - Subjective Subjective: Awake,lying in bed, denies chest pain or shortness of breath Reason for consultation and follow up: Cardiac evaluation for midsternal chest pain/ tightness,history of coronary artery disease with 5 coronary stents, cardiac ablation, CHF, IDDM, asbestosis, ESRD was on hemodialysis, DVT, hypertension, hypothyroidism, liver cirrhosis with ascites, and osteomyelitis Seen and examined by me and Dr. Mcgregor Objective - Vital Signs/Intake and Output Vital Signs (last 24 hours): Temp Pulse Resp BP Pulse Ox 98.2 F 62 18 118/57 L 100 08/20/17 18:00 08/21/17 08:13 08/20/17 18:00 08/21/17 08:13 08/20/17 18:00 Intake and Output: 08/21/17 08/21/17 06:59 18:59 Intake Total 1540 Balance 1540 - Medications Medications: Current Medications Acetylcysteine (Mucomyst 20% Inhal Yaneli (30ml)) 6 ml PO BID [facility] Stop: 08/23/17 23:59 Aspirin (Aspirin Chewable) 81 mg PO DAILY [facility] Last Admin: 08/20/17 10:26 Dose: 81 mg Darbepoetin Juventino (Aranesp) 60 mcg SC ONCE ONE Stop: 08/21/17 10:01 Enoxaparin Sodium (Lovenox) 80 mg SC Q24H [facility] PRN Reason: Protocol Stop: 08/21/17 23:59 Last Admin: 08/20/17 10:27 Dose: 80 mg Sodium Chloride (Sodium Chloride 0.9%) 1,000 mls @ 50 mls/hr IV .Q20H [facility] Last Admin: 08/21/17 05:52 Dose: 50 mls/hr Insulin Human Regular (Humulin R Low) 0 units SC ACHS [facility] PRN Reason: Protocol Last Admin: 08/21/17 08:03 Dose: Not Given Levothyroxine Sodium (Synthroid) 88 mcg PO 0600 [facility] Last Admin: 08/20/17 06:19 Dose: 88 mcg Metoprolol Succinate (Toprol Xl) 50 mg PO BRK [facility] Last Admin: 08/21/17 08:13 Dose: 50 mg Nitroglycerin (Nitro-Bid 2% Oint) 1 ea TOP Q6 PRN PRN Reason: Pain, severe (8-10) Pantoprazole Sodium (Protonix Ec Tab) 40 mg PO 0600 [facility] Last Admin: 08/21/17 05:50 Dose: 40 mg Polysaccharide Iron Complex (Ferrex-150) 150 mg PO DAILY [facility] Last Admin: 08/20/17 10:26 Dose: 150 mg Ticagrelor (Brilinta) 90 mg PO BID [facility] Last Admin: 08/20/17 17:30 Dose: 90 mg - Labs Labs: 08/21/17 06:30 08/21/17 06:30 PT 12.7 SECONDS (9.4-12.5) H 08/18/17 23:20 INR 1.11 (0.93-1.08) H 08/18/17 23:20 APTT 32.2 Seconds (25.1-36.5) 08/18/17 23:20 - Constitutional Appears: No Acute Distress - Head Exam Head Exam: NORMOCEPHALIC - Eye Exam Eye Exam: Normal appearance - ENT Exam ENT Exam: Mucous Membranes Moist - Respiratory Exam Respiratory Exam: Clear to Ausculation Bilateral, NORMAL BREATHING PATTERN - Cardiovascular Exam Cardiovascular Exam: REGULAR RHYTHM, +S1, +S2 Additional comments: telemetry NSR 61/min - GI/Abdominal Exam GI & Abdominal Exam: Soft, Normal Bowel Sounds - Exam Additional comments: continent - Extremities Exam Extremities Exam: Normal Capillary Refill - Neurological Exam Neurological Exam: Alert, Awake, Oriented x3 - Psychiatric Exam Psychiatric exam: Normal Affect, Normal Mood - Skin Skin Exam: Intact, Normal Color, Warm Assessment and Plan - Assessment and Plan (Free Text) Assessment: A 72 year old male who came in to the ER due to midsternal chest pain/ tightness upon climbing up the stairs in their home, non-radiating. He took 4 baby aspirin with no relief. He claimed to have similar symptoms in the past. History of coronary artery disease with 5 coronary stents, cardiac ablation, CHF , IDDM, asbestosis, Chronic kidney disease was on hemodialysis, DVT, hypertension,hyperlipidemia, hypothyroidism, liver cirrhosis with ascites, and osteomyelitis. Positive troponin on this admission (Non ST segment myocardial infarction).Cardiac cath deferred at admission due to elevated BUN/creatinine and patients symptoms resolved. To stabilize renal function. Plan: Instructed to ambulate and complaints of chest discomfort and shortness of breath Will schedule cardiac catheterization Tuesday NPO post midnight Dr. Mcgregor explained risk that includes renal failure considering patient had already CKD. Troponin positive ,still elevated but trending down positive Non ST segment myocardial infarction Resistant to Plavix, started on Brillinta Continue current treatment Continue current medications Will follow up Plan and treatment discussed with Dr. Mcgregor
[2017-08-21] MEDS ORDERED: Darbepoetin Alfa 60 mcg/ml Inj SC ONE (10:00)
[2017-08-21] MEDS ORDERED: Acetylcysteine 20% Inhal Sol (30ml) PO SCH (10:00)
[2017-08-21] MEDS: Iron Complex Polysacch 150mg Cap PO SCH (10:59)
--- NOTE | 2017-08-21 11:15 | PN ---
DATE: 08/21/2017 SUBJECTIVE: The patient states that with ambulation this morning around the telemetry floor, he did have chest pain. This was communicated to the client experience specialist and the patient is now scheduled for a cardiac catheterization tomorrow. He is currently receiving Mucomyst and IV fluid hydration. The patient and his family understand that there are risks involved with the possibility of him developing contrast nephrotoxicity given the need for dye. MEDICATIONS: Medication list reviewed. The patient is currently on aspirin, Brilinta, Ferrex, insulin, Lovenox, Mucomyst, Nitro-Bid ointment, Protonix, normal saline 50 mL an hour, Synthroid on hold and Toprol. OBJECTIVE: INTAKE/OUTPUT: Intake 1540, output not charted. VITAL SIGNS: Blood pressure 118/57, temperature 98.2, respiratory rate 18 with a pulse of 62. HEENT: Shows him to be normocephalic, atraumatic. Conjunctivae are pale. Sclerae nonicteric. NECK: Supple. No neck vein distention. CHEST: clear to auscultation and percussion with no rales, rhonchi or wheezing. CARDIOVASCULAR: Regular rate and rhythm with aortic stenosis, aortic insufficiency, mitral regurgitation, tricuspid regurgitation. No S3, no S4. No rub. ABDOMEN: Soft. Bowel sounds normal. Mild obesity. No rebound, guarding or masses. EXTREMITIES: Show no cyanosis, clubbing or edema of his lower extremity. NEURO: Shows no asterixis and no focal deficits. LABORATORY DATA AND IMAGING: CBC: White blood cell count 4.4, hemoglobin slightly low at 8.6 with platelet count of 86,000. Chemistries showed BUN of 55 with a creatinine of 2.6, chloride 110 with a CO2 of 18. Glucose is 121. Calcium, phosphorus, magnesium level all normal. Liver enzymes are normal. Ammonia level is within range for the patient at 56. Troponin level has dropped to 0.79 from a high of 4.15. ASSESSMENT: 1. Chronic kidney disease stage IV, appears to be stable. The patient was on dialysis briefly earlier this year. Creatinine is now stable in the mid to upper 2 range. The patient will require a cardiac catheterization. I have discussed this in detail with Dr. Mcgregor. We will try and minimize the dye load. Hopefully, the patient will not require multiple imaging studies with placement of stents. The patient will continue to receive Mucomyst as ordered by Dr. Mcgregor, will also remain on IV fluid hydration. We will monitor the patient closely in the 24-48 hour period after the catheterization for any contrast-induced nephrotoxicity. I did explain to the patient that there might be a bump up in creatinine. Hopefully this would be reversible if it does occur. 2. Mild hyperkalemia. The patient is on a potassium restriction in his diet and BRIANA inhibition was placed on hold. The patient's potassium level is down from 5.6 to 4.9. 3. History of fim-[id number]-zchazfcpk diabetes mellitus. The patient is currently on insulin. Glucose control acceptable. 4. History of atherosclerotic heart disease with unstable angina. Positive [id number]-[id number] myocardial infarction. The patient will continue to be monitored closely on telemetry. I encouraged him not to move around too much today. 5. History of hypertension. Blood pressure control is excellent. 6. History of cirrhosis with intermittent bouts of hepatic encephalopathy. Ammonia level is within his range at 56. 7. History of peripheral vascular disease. The patient had a recent toe infection, which is healed. 8. History of anemia secondary to chronic kidney disease. The patient has had a slow decline in his hemoglobin down from 9.9 to 8.6. In light of his ongoing coronary ischemia, try and keep his hemoglobin in the 10 range. The patient received Aranesp 60 mcg one dose today on 08/21/2017. The patient's iron saturation was 21%. The patient may continue oral iron therapy along with weekly Aranesp. If hemoglobin drops any lower, suggest transfusion. PLAN: 1. Cautious IV fluid hydration and Mucomyst in preparation for tomorrow's cardiac catheterization. 2. Continue to hold ramipril. The patient did have mild hyperkalemia 24 hours ago. 3. Continue to monitor glucose levels. 4. P.r.n. restart lactulose for any further elevation of ammonia level. 5. Discussed with the patient, his and his sister in detail. 6. Close renal followup during hospitalization. Manpreet Dalton MD TODD
[2017-08-21] MEDS ORDERED: Acetylcysteine 20% Inhal Soln (4ml) PO ONE (11:45)
[2017-08-21] MEDS: Acetylcysteine 20% Inhal Soln (4ml) PO SCH (11:53)
[2017-08-21] MEDS ORDERED: Acetylcysteine 20% Inhal Soln (4ml) PO SCH (18:00)
[2017-08-22] MEDS: Sodium Chloride 0.9% 1,000 ML IV SCH (01:50)
[2017-08-22] MEDS: Pantoprazole 40 mg EC Tab PO SCH (04:59)
[2017-08-22 07:13] LABS: HEMOGLOBIN 8.4 g/dL (14.0-18.0); MEAN CELL VOLUME 88.7 fl (80.0-105.0); MEAN CORPUSCULAR HEMOGLOBIN 32.8 pg (25.0-35.0); MEAN PLATELET VOLUME 12.3 fl (7.0-11.0); RBC 2.56 10^6/uL (3.5-6.1); RED CELL DISTRIBUTION WIDTH 14.9 % (11.5-14.5); WHITE BLOOD COUNT 4.1 10^3/ul (4.5-11.0)
[2017-08-22 07:44] LABS: ALBUMIN 3.3 g/dL (3.0-4.8); CALCIUM 8.9 mg/dL (8.4-10.5)
[2017-08-22 07:48] LABS: TROPONIN I 0.52 ng/mL
[2017-08-22] MEDS: Insulin Reg-LOW-Coverage SC SCH ×4 (07:52→21:43)
[2017-08-22] MEDS: Metoprolol Succinate 50 mg XL Tab PO SCH (08:21)
--- NOTE | 2017-08-22 09:12 | PN ---
DATE: 08/20/2017 SUBJECTIVE: The patient is a 72-year-old male with a history of congestive heart failure, coronary artery disease, COPD, asbestosis, insulin-dependent diabetes mellitus, chronic hepatic dysfunction, and chronic renal failure who was admitted to [facility] with chest pain. The initial troponins in the Emergency Room were negative at 0.03; however, the morning after they had bumped to 3.32. The patient's potassium is also elevated at 5.6. When the patient is seen, his vital signs are stable. Family is at bedside. He is feeling well and offers no complaints. He was told of the elevated troponin, suggestive of a non-STEMI. He is to receive Kayexalate for the elevated potassium level. He is evaluated by Dr. Mcgregor, his heel breaster as well as Dr. Dalton, the buckle inspector. We will continue to follow the patient closely. The patient's kidney functions are rather precarious. We would like to try to avoid coronary catheterization to see the kidneys and not force the patient to resume hemodialysis. Jim Reyes MD
--- NOTE | 2017-08-22 09:14 | HP ---
HISTORY OF PRESENT ILLNESS: The patient is a 72-year-old male who was admitted to [facility] with chest pain. He noted chest pain on climbing the stairs to the bedrooms in his house, it was a retrosternal pain. They are associated with shortness of breath and diaphoresis. The patient is known to have a history of COPD; asbestosis; chronic renal failure, had been on dialysis in the past. However, has been doing very well without dialysis over the past several months. He also was known to have a history of hepatic failure, congestive heart failure, coronary artery disease. The patient developed the chest pain, presented to the Emergency Room, is evaluated and admitted. ALLERGIES: HE HAS NO KNOWN MEDICAL ALLERGIES. SOCIAL HISTORY: He is a former smoker and nonalcoholic drinker. He is , with children. MEDICATIONS AT THE TIME OF ADMISSION: Included Synthroid 88 mcg daily, Toprol-XL 50 mg p.o. daily, NovoLog Mix 70/30 25 units subcutaneously twice a day, lactulose 10 mg daily, Altace 1.25 mg daily, Victoza 1.2 mg subcutaneously in the evening and vitamin B complex. He takes nitroglycerin 0.4 mg sublingually as needed, aspirin and nitroglycerin did not relieve his chest pain at home. REVIEW OF SYSTEMS: Otherwise, unremarkable. PHYSICAL EXAMINATION: VITAL SIGNS: His blood pressure is 163/74, heart rate is 90 and he is afebrile. HEENT: Examination of the head, eyes, ears, nose and throat are unremarkable. NECK: Supple with no lymphadenopathy. No goiter. LUNGS: Clear to auscultation and percussion. HEART: Regular. Systolic murmur is appreciated. ABDOMEN; Soft, nontender with no organomegaly. EXTREMITIES: Free of cyanosis, clubbing or edema. NEUROLOGIC: The patient is awake, alert and oriented with no focal neurological signs. DATA: EKG showed regular sinus rhythm with first-degree AV block and ischemic changes in the lateral leads. Chest x-ray showed increased pulmonary vascular markings. White blood cell count is 4.9, hemoglobin and hematocrit are 9.9 and 26.8 respectively, platelet count is 92. Sodium is 141, potassium is slightly elevated at 5.1. Blood urea nitrogen and creatinine are 57 and 2.4 respectively, which is about his baseline. Nonfasting glucose is 299. His initial troponin level in the Emergency Room is 0.03. BNP is elevated at 2970. So, the patient is to be admitted with chest pain, history of coronary artery disease, history of congestive heart failure and will be reevaluated in the morning. Jim Reyes MD MTDJessica
--- NOTE | 2017-08-22 09:54 | CON ---
DATE: 08/19/2017 REASON FOR CONSULTATION: Shortness of breath, chest pain, chronic kidney disease stage IV. HISTORY OF PRESENTING ILLNESS: A 72-year-old male, known to me from outpatient followup. The patient has a history of NIDDM, hypertension, chronic kidney disease stage IV, chronic hep C, ascites, CAD, PTCA and stents, history of acute kidney injury, the patient was on dialysis for a couple of months, partial resolution. The patient is now off dialysis for at least 1 month. He is presenting with exertional angina for 3 days. Pain was extremely bad last night. The patient reports that usually pain subsides when he sits down, but yesterday pain started when he was going up the stairs and did not to gudelia when he sat down. So he came to the emergency room. He denies any radiation. He denies any left arm pain or associated diaphoresis. He denies any nausea or vomiting. Denies any fever. Denies any chills. In the emergency room, he was found to have a blood pressure of 163/74, heart rate of 90, respiratory rate of 22. Initial blood work showed troponin of 0.03, but second set troponin amy to 3.3. EKG showed accelerated junctional rhythm. ST and T-wave abnormalities consistent with ischemia. His BUN was 53 and creatinine was 2.4. This is his baseline since he came off dialysis. PAST MEDICAL AND SURGICAL HISTORY: As mentioned above, NIDDM, hypertension, had C cirrhosis, ascites, CHF, CAD, PTCA and stents, chronic kidney disease stage IV, anemia of chronic kidney disease. FAMILY HISTORY: Noncontributory. SOCIAL HISTORY: Ex-smoker, ex-alcohol use, no IV drug abuse. ALLERGIES: NO KNOWN DRUG ALLERGIES. MEDICATIONS AT HOME: Synthroid 88, lactulose, insulin, Plavix, Ecotrin, ramipril 1.25 daily, Protonix, Toprol-XL 50, Victoza 1.2. REVIEW OF SYSTEMS: All systems are reviewed, pertinent positives as mentioned in the history of presenting illness, rest unremarkable. PHYSICAL EXAMINATION: GENERAL: Elderly male, lying in bed, currently in no acute distress. VITAL SIGNS: Blood pressure 133/62, heart rate 67, respiratory rate 17, temperature 99. HEENT: Normocephalic, atraumatic, positive pallor. NECK: Supple, no JVD. LUNGS: Bilateral equal air entry, bilateral equal expansion, no rales. CARDIAC: S1 and S2. Regular rate and rhythm, no murmur, no rub. ABDOMEN: Obese, distended, soft, nontender, bowel sounds present. EXTREMITIES: Chronic stasis changes, chronic lower extremity erythema. INTAKE AND OUTPUT: Not charted. LABORATORY DATA: WBC 4.7, hemoglobin 9, hematocrit 24, platelets 83. Sodium 144, potassium 4.7, chloride 110, CO2 of 21, BUN 53, creatinine 2.5, glucose 134, calcium 9.7, LDH 612, troponin 3.3, CPK 100. ASSESSMENT: 1. Unstable angina/acute coronary syndrome. 2. History of coronary artery disease and percutaneous transluminal coronary angioplasty and stents. 3. Hepatitis C cirrhosis. 4. Chronic kidney disease stage 4, stable. 5. History of acute kidney injury requiring dialysis for a few months in the past. 6. Gho-xvuvsnf-dhcynfsmt diabetes mellitus. 7. Anemia of chronic kidney disease. 8. Peripheral vascular disease. 9. History of hepatic encephalopathy. PLAN: 1. Management of acute coronary syndrome as per Cardiology. 2. Long discussion with the patient and regarding risks and benefits of cardiac catheterization. We discussed that although there is risk of worsening renal function with exposure to dye, benefit outweighs risks. At this time, the patient is agreeable for cardiac catheterization. 3. If cardiac catheterization is planned, I would hydrate the patient with D5W with 3 ampules of bicarbonate at 1 mL/kg for at least 6 hours prior. 4. Mucomyst 600 mg b.i.d. two doses pre and two doses post cath. 5. I would hold Lasix. 6. Minimize dye load. 7. Avoid nephrotoxins. Thank you for the courtesy of this consultation. We will follow this patient closely with you. Selina Garcia MD
[2017-08-22] MEDS ORDERED: Lidocaine 2% Inj (20ml) ONE (10:08)
[2017-08-22] MEDS ORDERED: Iohexol 350mgl/ml 50 ML ONE (10:09)
[2017-08-22] MEDS ORDERED: Midazolam 2 MG/2 ML VIAL ONE (10:09)
[2017-08-22] MEDS ORDERED: Nitroglycerin 50mg in D5W 50 MG/250 ML BOTTLE IV ONE (10:09)
[2017-08-22] MEDS ORDERED: Iodixanol 320 MG/ML 200 ML BOTTLE IV ONE (10:09)
--- NOTE | 2017-08-22 10:39 | PN ---
DATE: 08/21/2017 DAILY PROGRESS NOTE The patient is a 72-year-old male with a history of chronic renal failure who had been on dialysis until a few months ago and was doing very well without dialysis. He also had a history of chronic hepatic failure, COPD, asbestosis, coronary artery disease, congestive heart failure, hypothyroidism and insulin-dependent diabetes mellitus who was admitted to the [facility] on 08/19/2017 complaining of chest pain. Original troponins were negative at 0.03. However, during his hospital stay, they peaked at 4.15. At this point, they are dropping; this morning, his troponins are down to 0.79. His ammonia level is actually good for this patient, lower than usual at 56. This morning's white blood cell count is 4.4, hemoglobin and hematocrit are 8.6 and 23.3, blood urea nitrogen and creatinine are at baseline at 55 and 2.6 respectively. His blood pressure is 122/60, heart rate is 59 and he is afebrile. When seeing his family is at bedside, he is feeling well. He was informed by Dr. Mcgregor that he will be going for coronary catheterization in the morning. We were hoping to avoid this; however, the patient ambulated around the nurses' station; during which time, he did develop chest pain and mild shortness of breath. Therefore, the decision was made to proceed with coronary catheterization. He is being followed by Dr. Mcgregor and Dr. Connors, the hair baler as well as Dr. Dalton, the practice billing associate. He is receiving Mucomyst in preparation for the IV dye during the catheterization. We will continue to follow the patient closely. Jim Reyes MD
[2017-08-22] MEDS ORDERED: Iodixanol 320 MG/ML 100 ML BOTTLE IV ONE (10:41)
--- NOTE | 2017-08-22 11:43 | CPOSTOP ---
DATE: 08/22/2017 DICTATING PHYSICIAN: Isabella Mcgregor MD. SCHOOL PATROL: Tad, paint laboratory technician. TYPE OF ANESTHESIA: Moderate conscious sedation. Total dose given 1 mg of Versed, 50 mcg of fentanyl. PRE-PROCEDURE DIAGNOSES: Yan-KT-azgyjwh myocardial infarction, unstable angina. PROCEDURE PERFORMED: Left heart catheterization. FINDINGS: Triple vessel disease, occluded RCA, heavily calcified coronaries. RECOMMENDATION: Revascularization by open heart surgery evaluation versus medical treatment. POST PROCEDURE CONDITION: Post procedure, the patient's condition is stable. VASCULAR ACCESS SITE: Right femoral artery. CLOSURE DEVICE: Mynx. TOTAL RADIATION DOSE: 7918.1 milligray unit. TOTAL FLUORO TIME: 2.1. Isabella Mcgregor MD MTDD
[2017-08-22] MEDS: Acetylcysteine 20% Inhal Soln (4ml) PO SCH ×2 (12:38→18:31)
[2017-08-22] MEDS: Iron Complex Polysacch 150mg Cap PO SCH (12:39)
--- NOTE | 2017-08-22 12:39 | CARD ---
APPROVED REPORT Procedure(s) performed: Left Heart Catheterization HISTORY The patient is a 72 year-old male with a history of : previous [place] (> 7 days), previous CHF, renal failure without dialysis, diabetes mellitus with insulin treatment , previous diagnostic cath, tobacco history() : The patient is a former smoker , previous PCI (The PCI date was 03/14/2017), hypertension , dyslipidemia . INDICATION The indication(s) include : non-STEMI , chest pain, dyspnea. CASE TECHNIQUE The patient was brought electively to the Cardiac Catheterization Laboratory in a fasting state and was prepped and draped in a sterile manner. The right femoral groin was infiltrated with 2% Lidocaine subcutaneous anesthesia. A 6 Fr x 11 cm Nereyda sheath was inserted into the right femoral artery without difficulty. Coronary angiography was performed using coronary diagnostic catheters. The left coronary system was accessed and visualized with a Diagnostic , 6F JL4 CATH DXT 100 CM catheter. The right coronary system was accessed and visualized with a Diagnostic ,6F JR 4 CATH DXT 100 CM catheter. The left ventricle was accessed and visualized with a 6F PIGTAIL 145 CATH DXT 110 CM catheter. Left ventricular/Aortic Valve gradient assessed on pullback. Left ventriculogram was performed in VERDIN projection. Closure device was deployed with a 6 Fr / 7 Fr MynxGrip without any complications. The patient tolerated the procedure well and there were no complications associated with the procedure. Vessel Analysis The patient's coronary anatomy is right dominant. The left main coronary artery is a large size vessel with diffuse calcification noted throughout this vessel and without significant stenosis. The left anterior descending artery is a medium size vessel with diffuse calcification noted throughout this vessel and with significant stenosis. There is a 70-88% stenosis in the mid segment. The first diagonal branch is a small size vessel with diffuse calcification noted throughout this vessel and without significant stenosis. The second diagonal branch is a small size vessel with diffuse calcification noted throughout this vessel and without significant stenosis. The circumflex artery is a medium size vessel with diffuse calcification noted throughout this vessel and without significant stenosis. patent stent in mid Cx. The first obtuse marginal branch is a medium size vessel with diffuse calcification noted throughout this vessel and without significant stenosis. patent stent in mid OM1 There is a 60% stenosis in the proximal segment. The right coronary artery is a large size vessel with diffuse calcification noted throughout this vessel and with significant stenosis. There is a 100% stenosis in the mid segment. The right posterior descending artery is a medium size vessel with diffuse calcification noted throughout this vessel and without significant stenosis. The right posterolateral branch is a small size vessel with diffuse calcification noted throughout this vessel and without significant stenosis. Left Ventricle The left ventricle is mildly enlarged in size with normal contractility. There was no cardiomyopathy. The left ventricular ejection fraction is estimated to be 55%. The left ventricular end diastolic pressure is 20- mmHg. There was no gradient across the aortic valve upon pullback. Conclusion Heavily calcified Coronaries Patent stent in Mid Circumflex and Mid OM1. Moderate to Severe Diz in Proximal OM1 and Mid to distal LAD. Occluded Mid RCA ( previous PTCA site, onl;y POBA was done on last time, was unable to take stent B/c calcification and tortousity odf vessel. Preserved LV FX.EF-55%, EDP-20 mmof Hg Only 20-25 cc Contrast used for Cath. Recommendations [facility] eval for revascularization ( PCI would be very comlex, possibly needs Rota ablation and high Contrast load and then pt. may end up in dialysis) VS Medical treatment. Interim continue Hydration, Betablocker, and nitrates. pt. is resistant to plavix ( [id number]), on Brilanta now. CC; DR. Reyes / Dory.
--- NOTE | 2017-08-22 15:57 | PN ---
DATE: 08/22/2017 REASON FOR CONSULTATION AND FOLLOWUP: Cardiac evaluation, non-STEMI, recurrent chest pain on walking and shortness of breath. SUBJECTIVE: The patient denies any chest pain, just with walk and gets tightness in the chest and shortness of breath, observed twice yesterday, patient got a chest pain. PHYSICAL EXAMINATION: GENERAL: Not in apparent distress. VITAL SIGNS: Temperature afebrile, heart rate 62, blood pressure . HEENT: PERRLA. Extraocular muscles intact. NECK: Supple. No carotid bruit or thyromegaly. CHEST: Clear to auscultation. HEART: S1, S2 regular. ABDOMEN: Soft. EXTREMITIES: Clubbing and cyanosis negative. LABORATORY DATA: Blood workup as follows: WBC , hemoglobin , hematocrit 22.7, platelet count 79. Chemistry shows sodium 142, potassium 5, chloride 101, carbon dioxide 17, anion gap of 17, BUN 56, creatinine 2.5. Troponin 0.54, maximum troponin 4.15. IMPRESSION: Acu-OA-jfwpsdj myocardial infarction; chronic kidney disease, recently off dialysis, recently pulled catheter who came in with chest pain and lxy-GY-nnkzzue elevation myocardial infarction. Since the patient being initially asymptomatic, the plan was to treat medically, but last 2 days, the patient with walking developed chest pain. RECOMMENDATIONS: Discussed at length with the family, , patient's sister, sat with them and saw the patient walking. After the patient walking two hour, the patient developed chest pain. In view of the above, plan is to do the cardiac catheterization. The patient is n.p.o., given IV fluid today. Potassium is 5, creatinine is 2.5, and BUN 56, on IV fluids and Mucomyst. We will do the cardiac catheterization today. Further recommendation after the cardiac catheterization. Also, Plavix was tested, found to be P2Y12 patient is resistant to Plavix. patient was started on Brilinta since night. Monitor H and H. Monitor platelet count and monitor BUN and creatinine. Further recommendations after cardiac catheterization. We will follow with you. Length of time discussed with the patient's family that post procedure, patient may need dialysis with options are limited because the patient gets the chest pain on walking two hours and asymptomatic with a shortness of breath, so options are limited. Though understanding that the patient may need the dialysis as explained to the patient's family as well and the patient. Isabella Mcgregor MD
[2017-08-22] MEDS: Nystatin 100,000 Units/gm Topical Pow(15 gm) TOP SCH (18:31)
--- NOTE | 2017-08-22 21:32 | PN ---
DATE: 08/22/2017 SUBJECTIVE: Patient is seen lying in bed. He was seen post cath. He was found to have heavily calcified coronaries, patent stent in the mid circumflex and obtuse marginal, moderate to severe disease in proximal OM and mid to distal LAD, occluded mid RCA, EF of 55%, 25 mL of dye used. Currently he denies any chest pain, shortness of breath. PHYSICAL EXAMINATION: GENERAL: Elderly male, lying in bed. VITAL SIGNS: Blood pressure 131/55, heart rate 60, respiratory rate 18, temperature 97.2. HEENT: Normocephalic, atraumatic. NECK: Supple, no JVD. LUNGS: Bilateral equal air entry, no rales. CARDIAC: S1 and S2. Regular rate and rhythm, no murmur, no rub. ABDOMEN: Distended, nontender, bowel sounds present. EXTREMITIES: No lower extremity edema. INTAKE AND OUTPUT: 850/Not charted. LABORATORY DATA: WBC 4, hemoglobin 8.4, hematocrit 23, platelets 79. Sodium 142, potassium 5, chloride 113, CO2 of 17, BUN 56, creatinine 2.5, glucose 132, calcium 8.9. Troponin 0.52. CURRENT MEDICATIONS: Mucomyst, aspirin, Brilinta, polysaccharide, insulin, normal saline at 50, Synthroid, Toprol-XL. ASSESSMENT: 1. Triple vessel disease, calcified coronaries, open heart surgery recommended. 2. Chronic kidney disease stage IV, stable. 3. History of acute kidney injury requiring dialysis. 4. Gky-dascopg-agypgcntm diabetes mellitus. 5. Hypertension. 6. Cirrhosis of the liver. 7. Severe anemia. PLAN: 1. Continue Mucomyst. 2. Continue IV fluids, discontinue 6 hours post. 3. Monitor urine output. 4. Monitor labs. 5. Cardiothoracic Surgery evaluation. Selina Garcia MD
--- NOTE | 2017-08-23 01:23 | CP.PCM.PN ---
Subjective - Date & Time of Evaluation Date of Evaluation: 08/23/17 Time of Evaluation: 01:23 - Subjective Subjective: Patient was seen at bedside because earlier he had sob, pulse ox was 100%. He has no complaints now. S/P Cardiac cath. Medical record was reviewed. This 72 year old white male was admitted with chest pain. Has PMH of COPD, CKD in the past, Asbestosis, CAD, CHF, hepatic failure. Objective - Vital Signs/Intake and Output Vital Signs (last 24 hours): Temp Pulse Resp BP Pulse Ox 98.1 F 72 20 125/43 L 100 08/22/17 23:44 08/22/17 23:44 08/22/17 23:44 08/22/17 23:44 08/22/17 23:44 Intake and Output: 08/22/17 08/23/17 18:59 06:59 Intake Total 240 Output Total 300 Balance -60 - Medications Medications: Current Medications Acetylcysteine (Acetylcysteine 20%) 6 ml PO BID [facility] Last Admin: 08/22/17 18:31 Dose: 6 ml Aspirin (Aspirin Chewable) 81 mg PO DAILY [facility] Last Admin: 08/22/17 09:27 Dose: Not Given Sodium Chloride (Sodium Chloride 0.9%) 1,000 mls @ 50 mls/hr IV .Q20H [facility] Last Admin: 08/22/17 01:50 Dose: 50 mls/hr Insulin Human Regular (Humulin R Low) 0 units SC ACHS [facility] PRN Reason: Protocol Last Admin: 08/22/17 21:43 Dose: Not Given Levothyroxine Sodium (Synthroid) 88 mcg PO 0600 [facility] Last Admin: 08/20/17 06:19 Dose: 88 mcg Metoprolol Succinate (Toprol Xl) 50 mg PO BRK [facility] Last Admin: 08/22/17 08:21 Dose: 50 mg Nitroglycerin (Nitro-Bid 2% Oint) 1 ea TOP Q6 PRN PRN Reason: Pain, severe (8-10) Nystatin (Nystop Topical Powder) 0 gm TOP BID [facility] Last Admin: 08/22/17 18:31 Dose: 1 applic Pantoprazole Sodium (Protonix Ec Tab) 40 mg PO 0600 [facility] Last Admin: 08/22/17 04:59 Dose: Not Given Polysaccharide Iron Complex (Ferrex-150) 150 mg PO DAILY [facility] Last Admin: 08/22/17 12:39 Dose: 150 mg Ticagrelor (Brilinta) 90 mg PO BID [facility] Last Admin: 08/22/17 18:31 Dose: 90 mg - Labs Labs: 08/22/17 06:30 08/22/17 06:30 PT 12.7 SECONDS (9.4-12.5) H 08/18/17 23:20 INR 1.11 (0.93-1.08) H 08/18/17 23:20 APTT 32.2 Seconds (25.1-36.5) 08/18/17 23:20 Most Recent Lab Values WBC 5.6 10^3/ul (4.5-11.0) D 08/23/17 01:50 RBC 2.78 10^6/uL (3.5-6.1) L 08/23/17 01:50 Hgb 9.1 g/dL (14.0-18.0) L 08/23/17 01:50 Hct 24.6 % (42.0-52.0) L 08/23/17 01:50 MCV 88.5 fl (80.0-105.0) 08/23/17 01:50 MCH 32.7 pg (25.0-35.0) 08/23/17 01:50 MCHC 37.0 g/dl (31.0-37.0) 08/23/17 01:50 RDW 15.0 % (11.5-14.5) H 08/23/17 01:50 Plt Count 85 10^3/uL (120.0-450.0) L 08/23/17 01:50 MPV 11.4 fl (7.0-11.0) H 08/23/17 01:50 Gran % 70.6 % (50.0-68.0) H 08/23/17 01:50 Lymph % (Auto) 18.1 % (22.0-35.0) L 08/23/17 01:50 [place] % (Auto) 8.8 % (1.0-6.0) H 08/23/17 01:50 Eos % (Auto) 2.0 % (1.5-5.0) 08/23/17 01:50 Baso % (Auto) 0.5 % (0.0-3.0) 08/23/17 01:50 Gran # 3.94 (1.4-6.5) 08/23/17 01:50 Lymph # (Auto) 1.0 (1.2-3.4) L 08/23/17 01:50 [place] # (Auto) 0.5 (0.1-0.6) 08/23/17 01:50 Eos # (Auto) 0.1 (0.0-0.7) 08/23/17 01:50 Baso # (Auto) 0.03 K/mm3 (0.0-2.0) 08/23/17 01:50 PT 12.7 SECONDS (9.4-12.5) H 08/18/17 23:20 INR 1.11 (0.93-1.08) H 08/18/17 23:20 APTT 32.2 Seconds (25.1-36.5) 08/18/17 23:20 Plt P2Y12 React Units 302 PRU (194-418) 08/20/17 07:30 Sodium 144 mmol/L (132-148) 08/23/17 01:50 Potassium 4.8 mmol/L (3.6-5.0) 08/23/17 01:50 Chloride 115 mmol/L (98-107) H 08/23/17 01:50 Carbon Dioxide 15 mmol/L (21-33) L 08/23/17 01:50 Anion Gap 19 (10-20) 08/23/17 01:50 BUN 51 mg/dL (7-21) H 08/23/17 01:50 Creatinine 2.4 mg/dl (0.8-1.5) H 08/23/17 01:50 Est GFR ( Amer) 32 08/23/17 01:50 Est GFR (Non-Af Amer) 27 08/23/17 01:50 POC Glucose (mg/dL) 271 mg/dL (65-110) H 08/23/17 16:04 Random Glucose 189 mg/dL (70-110) H 08/23/17 01:50 Hemoglobin A1c 5.0 % (4.2-6.5) 08/19/17 08:00 Calcium 9.2 mg/dL (8.4-10.5) 08/23/17 01:50 Phosphorus 3.8 mg/dL (2.5-4.5) 08/21/17 06:30 Magnesium 1.9 mg/dL (1.7-2.2) 08/21/17 06:30 Iron 66 ug/dL (45-180) 08/20/17 08:00 TIBC 319 ug/dL (261-462) 08/20/17 08:00 % Saturation 21 % (20-55) 08/20/17 08:00 Ferritin 200.0 ng/mL 08/20/17 08:00 Total Bilirubin 1.3 mg/dL (0.2-1.3) 08/23/17 01:50 AST 37 U/L (17-59) 08/23/17 01:50 ALT 39 U/L (7-56) 08/23/17 01:50 Alkaline Phosphatase 134 U/L (38-126) H 08/23/17 01:50 Ammonia 40 umol/L (9-33) H 08/23/17 08:30 Lactate Dehydrogenase 577 U/L (333-699) 08/22/17 06:30 Total Creatine Kinase 43 U/L (35-230) 08/22/17 06:30 Troponin I 0.32 ng/mL H* D 08/23/17 01:50 NT-Pro-B Natriuret Pep 4000 pg/mL (0-450) H 08/23/17 01:50 Total Protein 7.4 g/dL (5.8-8.3) 08/23/17 01:50 Albumin 3.6 g/dL (3.0-4.8) 08/23/17 01:50 Globulin 3.8 gm/dL 08/23/17 01:50 Albumin/Globulin Ratio 0.9 (1.1-1.8) L 08/23/17 01:50 Triglycerides 139 mg/dL (35-160) 08/19/17 08:00 Cholesterol 137 mg/dL (130-200) 08/19/17 08:00 LDL Cholesterol Direct 32 mg/dL (0-129) 08/19/17 08:00 HDL Cholesterol 59 mg/dL (29-60) 08/19/17 08:00 Vitamin B12 382 pg/mL (239-931) 08/20/17 08:00 Folate 16.7 ng/mL 08/20/17 08:00 TSH 3rd Generation 0.02 mIU/mL (0.46-4.68) L 08/20/17 07:30 - Constitutional Appears: Well, No Acute Distress - Head Exam Head Exam: ATRAUMATIC, NORMAL INSPECTION, NORMOCEPHALIC - Eye Exam Eye Exam: Normal appearance - ENT Exam ENT Exam: Normal External Ear Exam - Neck Exam Neck Exam: Normal Inspection - Respiratory Exam Respiratory Exam: NORMAL BREATHING PATTERN - GI/Abdominal Exam GI & Abdominal Exam: absent: Distended - Rectal Exam Rectal Exam: Deferred - Exam Additional comments: Deferred. - Extremities Exam Extremities Exam: Normal Inspection - Back Exam Back Exam: NORMAL INSPECTION - Neurological Exam Neurological Exam: Alert, Awake, Oriented x3 - Psychiatric Exam Psychiatric exam: Normal Affect, Normal Mood - Skin Skin Exam: Normal Color Assessment and Plan - Assessment and Plan (Free Text) Assessment: Resolved sob. S/P cardiac cath. CHF. CAD. Hepatic failure history. COPD. Anemia. Elevate BNP. Plan: AM labs now including troponin ,bnp, NH3-level. EKG.---------------> NSR , 1* Block, old inf infarct. BNP---> 4000 NH3-69 Lasix 40 mg iv x1
[2017-08-23 02:07] LABS: BASO # 0.03 K/mm3 (0.0-2.0); BASO % 0.5 % (0.0-3.0); EOS # 0.1 (0.0-0.7); GRAN # 3.94 (1.4-6.5); GRAN % 70.6 % (50.0-68.0); HEMOGLOBIN 9.1 g/dL (14.0-18.0); LYMPH % 18.1 % (22.0-35.0); MEAN CELL VOLUME 88.5 fl (80.0-105.0); MEAN CORPUSCULAR HEMOGLOBIN 32.7 pg (25.0-35.0); MEAN PLATELET VOLUME 11.4 fl (7.0-11.0); MONO # 0.5 (0.1-0.6); MONO % 8.8 % (1.0-6.0); RBC 2.78 10^6/uL (3.5-6.1); WHITE BLOOD COUNT 5.6 10^3/ul (4.5-11.0)
[2017-08-23 02:34] LABS: ALB/GLOB RATIO 0.9 (1.1-1.8); ALBUMIN 3.6 g/dL (3.0-4.8); CALCIUM 9.2 mg/dL (8.4-10.5)
[2017-08-23 02:36] LABS: TROPONIN I 0.32 ng/mL
[2017-08-23] MEDS: Pantoprazole 40 mg EC Tab PO SCH (05:08)
[2017-08-23] MEDS: Levothyroxine 88 MCG TAB PO SCH (05:08)
[2017-08-23] MEDS: Sodium Chloride 0.9% 1,000 ML IV SCH (06:10)
--- NOTE | 2017-08-23 07:37 | CP.PCM.PN ---
Subjective - Date & Time of Evaluation Date of Evaluation: 08/23/17 Time of Evaluation: 06:50 - Subjective Subjective: Awake,ambulating to bathroom, denies chest pain or shortness of breath at rest. Reason for consultation and follow up: Cardiac evaluation for midsternal chest pain/ tightness,history of coronary artery disease with 5 coronary stents, cardiac ablation, CHF, IDDM, asbestosis, ESRD was on hemodialysis, DVT, hypertension, hypothyroidism, liver cirrhosis with ascites, and osteomyelitis Seen and examined by me and Dr. Dahl Objective - Vital Signs/Intake and Output Vital Signs (last 24 hours): Temp Pulse Resp BP Pulse Ox 98.2 F 74 20 111/46 L 99 08/23/17 06:00 08/23/17 06:00 08/23/17 06:00 08/23/17 06:00 08/23/17 06:00 Intake and Output: 08/23/17 08/23/17 06:59 18:59 Intake Total 1680 Output Total 2075 Balance -395 - Medications Medications: Current Medications Acetylcysteine (Acetylcysteine 20%) 6 ml PO BID [facility] Last Admin: 08/22/17 18:31 Dose: 6 ml Aspirin (Aspirin Chewable) 81 mg PO DAILY [facility] Last Admin: 08/22/17 09:27 Dose: Not Given Sodium Chloride (Sodium Chloride 0.9%) 1,000 mls @ 50 mls/hr IV .Q20H [facility] Last Admin: 08/23/17 06:10 Dose: 50 mls/hr Insulin Human Regular (Humulin R Low) 0 units SC ACHS [facility] PRN Reason: Protocol Last Admin: 08/22/17 21:43 Dose: Not Given Levothyroxine Sodium (Synthroid) 88 mcg PO 0600 [facility] Last Admin: 08/23/17 05:08 Dose: 88 mcg Metoprolol Succinate (Toprol Xl) 50 mg PO BRK [facility] Last Admin: 08/22/17 08:21 Dose: 50 mg Nitroglycerin (Nitro-Bid 2% Oint) 1 ea TOP Q6 PRN PRN Reason: Pain, severe (8-10) Nystatin (Nystop Topical Powder) 0 gm TOP BID [facility] Last Admin: 08/22/17 18:31 Dose: 1 applic Pantoprazole Sodium (Protonix Ec Tab) 40 mg PO 0600 [facility] Last Admin: 08/23/17 05:08 Dose: 40 mg Polysaccharide Iron Complex (Ferrex-150) 150 mg PO DAILY [facility] Last Admin: 08/22/17 12:39 Dose: 150 mg Ticagrelor (Brilinta) 90 mg PO BID [facility] Last Admin: 08/22/17 18:31 Dose: 90 mg - Labs Labs: 08/23/17 01:50 08/23/17 01:50 PT 12.7 SECONDS (9.4-12.5) H 08/18/17 23:20 INR 1.11 (0.93-1.08) H 08/18/17 23:20 APTT 32.2 Seconds (25.1-36.5) 08/18/17 23:20 - Constitutional Appears: No Acute Distress - Head Exam Head Exam: NORMOCEPHALIC - Eye Exam Eye Exam: Normal appearance - ENT Exam ENT Exam: Mucous Membranes Moist - Cardiovascular Exam Cardiovascular Exam: REGULAR RHYTHM, +S1, +S2 Additional comments: telemetry NSR - GI/Abdominal Exam GI & Abdominal Exam: Soft, Normal Bowel Sounds - Exam Additional comments: continent - Extremities Exam Extremities Exam: Normal Capillary Refill Additional comments: right groin no bledding/no hematoma - Neurological Exam Neurological Exam: Alert, Awake, Oriented x3 - Psychiatric Exam Psychiatric exam: Normal Affect, Normal Mood - Skin Skin Exam: Intact, Normal Color, Warm Assessment and Plan - Assessment and Plan (Free Text) Assessment: A 72 year old male who came in to the ER due to midsternal chest pain/ tightness upon climbing up the stairs in their home, non-radiating. He took 4 baby aspirin with no relief. He claimed to have similar symptoms in the past. History of coronary artery disease with 5 coronary stents, cardiac ablation, CHF , IDDM, asbestosis, Chronic kidney disease was on hemodialysis, DVT, hypertension,hyperlipidemia, hypothyroidism, liver cirrhosis with ascites, and osteomyelitis. Positive troponin on this admission (Non ST segment myocardial infarction).Cardiac cath deferred at admission due to elevated BUN/creatinine and patients symptoms resolved however has chest pain and shortness of breath when walking. Dr. dahl decided to do cardiac catheterization inspite of concern of renal function.Cardiac cath done 08/22/17 and heavily calcified Right coronary artery. Dr. Dahl will present to cath conference today. Plan: Had cardiac cath yesterday with heavily calcified right coronary artery disease , Dr. Dahl will present to cardiac cath conference today to discuss plan of care Troponin positive ,still elevated but trending down positive Non ST segment myocardial infarction Resistant to Plavix, started on Brillinta Monitor renal function post cardiac cath Continue current treatment Continue current medications Will follow up Plan and treatment discussed with Dr. Dahl
[2017-08-23] MEDS: Insulin Reg-LOW-Coverage SC SCH ×4 (08:43→22:38)
[2017-08-23] MEDS: Metoprolol Succinate 50 mg XL Tab PO SCH (08:44)
--- NOTE | 2017-08-23 11:06 | RAD ---
HISTORY: ? chf COMPARISON: 08/18/2017 FINDINGS: LUNGS: No active pulmonary disease. PLEURA: Calcified pleural plaques CARDIOVASCULAR: Normal. OSSEOUS STRUCTURES: No significant abnormalities. VISUALIZED UPPER ABDOMEN: Normal. OTHER FINDINGS: None. IMPRESSION: No active disease.
[2017-08-23] MEDS: Acetylcysteine 20% Inhal Soln (4ml) PO SCH ×2 (11:11→18:04)
[2017-08-23] MEDS: Iron Complex Polysacch 150mg Cap PO SCH (11:12)
[2017-08-23] MEDS: Nystatin 100,000 Units/gm Topical Pow(15 gm) TOP SCH ×2 (11:15→18:07)
--- NOTE | 2017-08-23 13:09 | PN ---
DATE: 08/22/2017 The patient is a 72-year-old male with a history of chronic renal disease, had been on dialysis in the past until a few months ago and he is doing very well without dialysis. He also has a history of chronic hepatic failure, COPD, asbestosis, coronary artery disease, congestive heart failure, hypothyroidism, insulin-dependent diabetes mellitus who was admitted to the [facility] on 08/19/2017 with chest pain. Positive troponin's during his hospital stay. He was evaluated by roster clerk, Dr. Mcgregor. Although, his troponins were falling back to normal during his hospital stay. The patient did develop chest pain while ambulating on the floor, therefore it was decided to take the patient for coronary catheterization. The patient was prepped before the cath by his asbestos wire finisher, Dr. Dalton. He received Mucomyst. During the catheterization, the patient received only 25 mL of IV contrast in an attempt to protect his kidneys. The patient was found to have triple-vessel disease and total occlusion of the right coronary artery. The case was discussed with Dr. Mcgregor. The case will be presented to the cardiac surgeon in the morning and decision to be made on open heart surgery versus medical treatment. When seen, the patient is awake, alert and oriented. He is still lying supine. His family is at bedside. They are all in good spirits. They are aware of the findings of the catheterization and awaiting the decision by Cardiology. Jim Reyes MD
--- NOTE | 2017-08-23 14:03 | CARD ---
APPROVED REPORT EKG Measurement Heart [id number] NC [id number] <Conclusion> Sinus rhythm with 1st degree AV block Inferior infarct, age undetermined Abnormal ECG
--- NOTE | 2017-08-23 18:22 | PN ---
DATE: 08/23/2017 SUBJECTIVE: The patient is currently seen en route to Echocardiogram. Did discussion with the patient's and Dr. Reyes. The patient's options post cardiac catheterization include that of either open heart surgery or perhaps medical therapy or perhaps a Roto-Rooter job of the coronary arteries requiring a large amount of dye. Of note, the patient's creatinine is 2.4; 24 hours post the cardiac catheterization, only a small amount of contrast material was used. MEDICATIONS: Medication list reviewed. The patient is completing a course of Mucomyst, aspirin, Brilinta, Ferrex, insulin, Lasix x1 dose, Nitro-Bid, Protonix, Synthroid and Toprol. OBJECTIVE: INTAKE/OUTPUT: Intake 1920, output 2375. VITAL SIGNS: Blood pressure 136/73, temperature 98, respiratory rate 19 with a pulse of 66. HEENT: Exam shows him to be normocephalic, atraumatic. Conjunctivae are pale. Sclerae are nonicteric. NECK: Supple. No neck vein distention. CHEST: Clear to auscultation and percussion with no rales, rhonchi or wheezing. CARDIOVASCULAR: Shows a regular rate and rhythm with /AI/MR/TR. No S3, no S4. No rub. ABDOMEN: Soft. Bowel sounds normal. Mild obesity. No rebound, guarding or masses. EXTREMITIES: Show no cyanosis. No lower extremity cyanosis, clubbing or edema. LABORATORY DATA AND IMAGING DATA: CBC: White blood cell count today 5.6, hemoglobin stable at 9.1, platelet count is 85,000. Chemistries from today: BUN 51 with a creatinine of 2.4. CO2 was low at 15. The chloride of 115. Potassium is 4.8. Calcium is 9.2. Yesterday, last phosphorus level was 3.8. Last magnesium level was 1.9. Liver enzymes are normal. Last ammonia level was 40. ASSESSMENT: 1. Chronic kidney disease stage IV, stable. The patient had a brief stent on dialysis earlier this year. He is currently off dialysis. Only a small amount of contrast material was used. There appears to be no ill effects on the kidney from the dye study associated with the cardiac catheterization. The patient will complete IV fluid hydration and Mucomyst. We will continue to monitor BUN and creatinine closely over the next 24 to 48 hours. 2. Status post mild hyperkalemia. The patient is on potassium restriction and angiotensin-converting enzyme inhibition was placed on hold. The patient's potassium level is acceptable at 4.8 today. 3. Metabolic acidosis with an anion gap of 19. The patient will be started on sodium bicarbonate therapy. This is all likely secondary to chronic kidney disease. 4. History of rpx-nctbkto-rgwrjvzhi diabetes mellitus. The patient is on insulin. Glucose control is acceptable. 5. History of atherosclerotic heart disease, unstable angina. Cardiac catheterization was positive for severe triple-vessel coronary artery disease, calcified coronary arteries and occluded right coronary artery. His options include that of other medical therapy, a Roto-Rooter job with removal of plaque and perhaps, stenting or open heart surgery. 6. History of hypertension. Blood pressure control is excellent. 7. History of cirrhosis with intermittent bouts of hepatic encephalopathy. Last ammonia level was acceptable at 40. The patient receives lactulose on an as-needed basis. 8. History of peripheral vascular disease with a recent toe infection, this is healed. 9. History of anemia secondary to chronic kidney disease. We will try and keep the patient's hemoglobin in the 9 to 10 range. The patient will continue to receive Aranesp on an as-needed basis together with oral iron supplements. His last dose of Aranesp was 60 mcg on 08/21/2017. PLAN: 1. Discussed with Dr. Reyes and the patient's . The patient is en route for echocardiogram. Difficult decision making in terms of what to do from a cardiac standpoint, but it appears that conservative medical management therapy will likely not work. 2. Continue the ramipril, perhaps restart once potassium level falls into the upper 3, around 4 range. 3. Continue to monitor the glucose levels and adjust insulin. 4. P.r.n. restart lactulose for elevated ammonia levels. 5. Continue close renal followup. 6. The patient's is aware of the fact that if he does any sort of cardiac procedure whether it be open heart surgery or roto-rooter procedure of the coronary arteries. He will likely end up on dialysis. Manpreet Dalton MD [facility] # [id number]
[2017-08-24] MEDS: Levothyroxine 88 MCG TAB PO SCH (05:29)
[2017-08-24] MEDS: Pantoprazole 40 mg EC Tab PO SCH (05:29)
[2017-08-24 06:19] LABS: HEMOGLOBIN 8.9 g/dL (14.0-18.0); MEAN CELL VOLUME 87.8 fl (80.0-105.0); MEAN CORPUSCULAR HEMOGLOBIN 32.8 pg (25.0-35.0); MEAN CORPUSCULAR HGB CONC 37.4 g/dl (31.0-37.0); MEAN PLATELET VOLUME 12.5 fl (7.0-11.0); RBC 2.71 10^6/uL (3.5-6.1); RED CELL DISTRIBUTION WIDTH 14.7 % (11.5-14.5); WHITE BLOOD COUNT 4.8 10^3/ul (4.5-11.0)
[2017-08-24 06:30] LABS: ALBUMIN 3.7 g/dL (3.0-4.8); CALCIUM 9.5 mg/dL (8.4-10.5)
--- NOTE | 2017-08-24 07:22 | CP.PCM.PN ---
Subjective - Date & Time of Evaluation Date of Evaluation: 08/24/17 Time of Evaluation: 06:35 - Subjective Subjective: Awake,lying in bed, denies chest pain or shortness of breath at rest, gets shortness of breath and chest pain after walking to the bathroom Reason for consultation and follow up: Cardiac evaluation for midsternal chest pain/ tightness,history of coronary artery disease with 5 coronary stents, cardiac ablation, CHF, IDDM, asbestosis, ESRD was on hemodialysis, DVT, hypertension, hypothyroidism, liver cirrhosis with ascites, and osteomyelitis Seen and examined by me and Dr. Mcgregor Objective - Vital Signs/Intake and Output Vital Signs (last 24 hours): Temp Pulse Resp BP Pulse Ox 98.5 F 70 20 141/58 L 100 08/24/17 05:45 08/24/17 05:45 08/24/17 05:45 08/24/17 05:45 08/24/17 05:45 Intake and Output: 08/24/17 08/24/17 06:59 18:59 Intake Total 300 Output Total 800 Balance -500 - Medications Medications: Current Medications Acetylcysteine (Acetylcysteine 20%) 6 ml PO BID [facility] Last Admin: 08/23/17 18:04 Dose: 6 ml Aspirin (Aspirin Chewable) 81 mg PO DAILY [facility] Last Admin: 08/23/17 11:11 Dose: 81 mg Furosemide (Lasix) 40 mg IV ONCE ONE Stop: 08/24/17 10:01 Insulin Human Regular (Humulin R Low) 0 units SC ACHS [facility] PRN Reason: Protocol Last Admin: 08/23/17 22:38 Dose: 2 units Isosorbide Mononitrate (Imdur) 60 mg PO DAILY [facility] Levothyroxine Sodium (Synthroid) 88 mcg PO 0600 [facility] Last Admin: 08/24/17 05:29 Dose: 88 mcg Metoprolol Succinate (Toprol Xl) 50 mg PO BRK [facility] Last Admin: 08/23/17 08:44 Dose: 50 mg Nystatin (Nystop Topical Powder) 0 gm TOP BID [facility] Last Admin: 08/23/17 18:07 Dose: 1 applic Pantoprazole Sodium (Protonix Ec Tab) 40 mg PO 0600 [facility] Last Admin: 08/24/17 05:29 Dose: 40 mg Polysaccharide Iron Complex (Ferrex-150) 150 mg PO DAILY [facility] Last Admin: 08/23/17 11:12 Dose: 150 mg Sodium Bicarbonate (Sodium Bicarbonate Tab) 650 mg PO TID [facility] Last Admin: 08/23/17 18:05 Dose: 650 mg Ticagrelor (Brilinta) 90 mg PO BID [facility] Last Admin: 08/23/17 18:05 Dose: 90 mg - Labs Labs: 08/24/17 05:30 08/24/17 05:30 PT 12.7 SECONDS (9.4-12.5) H 08/18/17 23:20 INR 1.11 (0.93-1.08) H 08/18/17 23:20 APTT 32.2 Seconds (25.1-36.5) 08/18/17 23:20 - Constitutional Appears: No Acute Distress - Head Exam Head Exam: NORMOCEPHALIC - Eye Exam Eye Exam: Normal appearance - ENT Exam ENT Exam: Mucous Membranes Moist - Respiratory Exam Respiratory Exam: Decreased Breath Sounds, NORMAL BREATHING PATTERN - Cardiovascular Exam Cardiovascular Exam: REGULAR RHYTHM, +S1, +S2 Additional comments: NSR Telemetry 60's/min Chest pain and SOB on exertion - GI/Abdominal Exam GI & Abdominal Exam: Soft, Normal Bowel Sounds - Extremities Exam Extremities Exam: Normal Capillary Refill - Neurological Exam Neurological Exam: Alert, Awake, Oriented x3 - Psychiatric Exam Psychiatric exam: Normal Affect, Normal Mood - Skin Skin Exam: Intact, Normal Color, Warm Assessment and Plan - Assessment and Plan (Free Text) Assessment: A 72 year old male who came in to the ER due to midsternal chest pain/ tightness upon climbing up the stairs in their home, non-radiating. He took 4 baby aspirin with no relief. He claimed to have similar symptoms in the past. History of coronary artery disease with 5 coronary stents, cardiac ablation, CHF , IDDM, asbestosis, Chronic kidney disease was on hemodialysis, DVT, hypertension,hyperlipidemia, hypothyroidism, liver cirrhosis with ascites, and osteomyelitis. Positive troponin on this admission (Non ST segment myocardial infarction).Cardiac cath deferred at admission due to elevated BUN/creatinine and patients symptoms resolved however has chest pain and shortness of breath when walking. Dr. Mcgregor decided to do cardiac catheterization inspite of concern of renal function.Cardiac cath done 08/22/17-Heavily calcified coronaries, patent stent in mid circumflex,and mid OM,moderate to severe disease proximal OM1 and mid to distal LAD,occluded mid RCA, unable to take out stent due to calcification and tortousity of vessel.Renal on consult. Plan: Dr. Mcgregor presented case to cath conference Options of care discussed with patient and family, Medical treatment, coronary artery bypass grafting or Rota ablation with high dye contrast causing kidney failure and possibility of hemodialysis) Pending patient and family decision Unstable angina Troponin positive ,still elevated but trending down positive Non ST segment myocardial infarction Resistant to Plavix, started on Brillinta Monitor renal function post cardiac cath Continue current treatment Continue current medications Will follow up Plan and treatment discussed with Dr. Mcgregor
[2017-08-24] MEDS: Insulin Reg-LOW-Coverage SC SCH ×4 (08:13→21:26)
--- NOTE | 2017-08-24 08:25 | PN ---
DATE: 08/23/2017 REASON FOR DICTATION: Addendum to the initial progress note dictated by our nurse practitioner, Sydnee Isabel. REASON FOR ADDENDUM: Case discussed in cardiac cath conference, combined Cardiology and Cardiothoracic. The patient was felt to be high risk for surgery as well, but surgical option was considered to be better versus angioplasty that is Rotablation of RCA and LAD, but the patient definitely needs dialysis after the angioplasty. All these information given to the patient's family, the and the sister, who is a retired nurse. Third option were the medical treatment since the patient is symptomatic, so probably not top on the list. The patient had a cardiac catheterization. Only 20 mL of contrast used and IVF was given for hydration. Last night, the patient was mild short of breath. Now, this morning 40 mg of Lasix was given now and 40 was given at 2 a.m. Chest x-ray was repeated. Looks like mild congestion, so 40 mg of Lasix was given at 10 o'clock and IV fluid discontinued. In the interim, we will continue Brilinta as the patient is resistant to the Plavix. Continue baby aspirin. Continue beta-berkley. Continue nitrate. Finish the Mucomyst today, third dose and we will change to Imdur. Discussed with the family. I need the input from the family. The is going to discuss with the son and daughter and in the interim, we will continue medical treatment. Also, we will discuss with Dr. OBRIEN and we will send the films to get his opinion as well. Then, we will come to the conclusion about the line of treatment for revascularization, PTCA, Rotablation of LAD and RCA versus coronary artery bypass surgery. In the interim, continue aggressive medical treatment. Thank you, Dr. Reyes, for providing us the opportunity in taking care of the patient, Andrew Tanner. Isabella Mcgregor MD cc: Jim Reyes MD [facility]
[2017-08-24] MEDS: Metoprolol Succinate 50 mg XL Tab PO SCH (08:43)
[2017-08-24] MEDS: Iron Complex Polysacch 150mg Cap PO SCH (09:03)
[2017-08-24] MEDS: Nystatin 100,000 Units/gm Topical Pow(15 gm) TOP SCH ×2 (09:03→17:44)
[2017-08-24] MEDS: Acetylcysteine 20% Inhal Soln (4ml) PO SCH ×2 (09:23→17:43)
[2017-08-24] MEDS ORDERED: Darbepoetin Alfa 60 mcg/ml Inj SC ONE (13:26)
--- NOTE | 2017-08-24 15:25 | PN ---
DATE: 08/24/2017 SUBJECTIVE: The patient is seen sitting in bed. He is awake. He is alert. He complains of dyspnea on exertion. He complains of chest pain with exertion. He denies any pain at rest. PHYSICAL EXAMINATION: GENERAL: Elderly male, sitting in bed. VITAL SIGNS: Blood pressure 110/50, heart rate 64, respiratory rate 19, temperature 97.1. HEENT: Normocephalic, atraumatic, positive pallor. NECK: Supple, no JVD. LUNGS: Bilateral equal air entry, bilateral equal expansion. CARDIAC: S1 and S2, regular rate and rhythm, no murmur, no rub. ABDOMEN: Obese, distended, soft, nontender, bowel sounds present. EXTREMITIES: No lower extremity edema, chronic stasis changes. INTAKE AND OUTPUT: 1750/2000. LABORATORY DATA: WBC 4.8, hemoglobin 8.9, hematocrit 24, platelets 84. Sodium 142, potassium 4.6, chloride 111, CO2 of 17, BUN 52, creatinine 2.5, glucose 157, calcium 9.5, phosphorus 3.8, magnesium 1.7. Iron saturation 21%, ferritin 200, total bili 1.3, AST 39, ALT 3.7, albumin 3.7. CURRENT MEDICATIONS: Mucomyst, aspirin, Brilinta 90 b.i.d., Ferrex, insulin, Imdur, nystatin, Protonix, sodium bicarbonate 650 t.i.d., Synthroid, Toprol-XL, Lasix 40 mg IV given this morning, Nitro-Bid. ASSESSMENT: 1. Acute coronary syndrome, coronary artery disease. 2. Stable chronic kidney disease stage 4. 3. Anion gap metabolic acidosis. 4. Mvo-qmlxdpd-jzfbwzuxm diabetes mellitus. 5. Hypertension. 6. Cirrhosis of liver. 7. Peripheral vascular disease. 8. Severe anemia. PLAN: 1. Continue antianginal therapy. 2. Agree with plan for cardiothoracic evaluation for open heart surgery. 3. Venofer 200 mg IV piggyback x1 dose. 4. Aranesp 60 mcg today. 5. Continue lactulose as needed. 6. Discontinue Lasix as needed. 7. Continue sodium bicarbonate. Awaiting transfer to [facility]. Selina Garcia MD [facility] # [id number]
--- NOTE | 2017-08-24 15:39 | PN ---
DATE: 08/23/2017 DAILY PROGRESS NOTE SUBJECTIVE: I spoke with patient's this Tuesday morning outside of his room and later this Tuesday evening came back and spoke with the patient, his , sister, and son at the bedside in room 260 bed 1. The patient is awake, alert, clear. He underwent cardiac catheterization, revealed multivessel disease. I asked the patient details of his findings, he was able to clearly explain to me the findings of his cardiac catheterization and the options presented, basically being bypass surgery versus a roto blade procedure at [facility] versus medical treatment. We reviewed all the options with the risks and benefits of each including post proceedure need for dialysis, surgical morbidity and mortality and risks of medical treatment including pain and failure of myocardial infarction and . Dr. Mcgregor is meeting with his family tomorrow. His two daughters will be in with questions as they live a further distance. The patient and his have already had their preference of choice being the middle option of the three to go to [facility] for the procedure, but we will make the plan of decision after talking to the daughters. Meanwhile, he is asymptomatic and chest pain free. PHYSICAL EXAMINATION: HEAD AND NECK: Unremarkable. LUNGS: Good aeration. EXTREMITIES: Showed no significant edema. IMPRESSION: 1. Coronary artery disease. 2. Diabetes. 3. Renal insufficiency. PLAN: Information is received by Dr. Mcgregor. I also spoke with Dr. Dalton and the family, 2 occasions as noted above, may transfer to [facility] as soon as tomorrow after family meeting and the patient has reached the decision as to direction of treatment options for treatment plan. Berto Reyes MD [facility]
--- NOTE | 2017-08-24 15:42 | CARD ---
APPROVED REPORT EXAM: Two-dimensional and M-mode echocardiogram with Doppler and color Doppler. INDICATION LV Function:SystolicDiastolic Non STEMI 2D DIMENSIONS Left Atrium (2D)4.3 (1.6-4.0cm)IVSd1.5 (0.7-1.1cm) LVDd4.7 (3.9-5.9cm)LVOT Diameter2.1 (1.8-2.4cm) PWd1.3 (0.7-1.1cm)LVDs3.4 (2.5-4.0cm) FS (%) 26.8 %LVEF (%)52.4 (>50%) M-Mode DIMENSIONS Aortic Root2.70 (2.2-3.7cm)Aortic Cusp Exc.1.30 (1.5-2.0cm) Aortic Valve AoV Peak Uxhvfhfy371.0cm/sAoV VTI60.5cmAO Peak GR.29mmHg LVOT Peak Lzazmmji864.0cm/sLVOT VTI24.20cmAO Mean GR.14mmHg OSVALDO (VTI)1.30cm2 Mitral Valve MV E Bccgshmy399.0cm/sMV A Jzhavanh72.8cm/sE/A ratio2.1 TDI E/Lateral E'0.0E/Medial E'0.0 Tricuspid Valve TR Peak Tsmdjgrz961ip/sRAP [id number] Peak Gr.37mmHg [id number] LEFT VENTRICLE The left ventricle is normal size. There is mild to moderate concentric left ventricular hypertrophy. The left ventricular function is normal.EF-55% There is mild hypokinesis in the apical anterior wall. Transmitral Doppler flow pattern is Grade III-reversible restrictive diastolic dysfunction. No left ventricle thrombus noted on this study. There is no ventricular septal defect visualized. There is no left ventricular aneurysm. There is no mass noted in the left ventricle. RIGHT VENTRICLE The right ventricle is normal size. There is normal right ventricular wall thickness. The right ventricular systolic function is normal. ATRIA The left atrium is mildly dilated. The right atrium size is normal. The interatrial septum is intact with no evidence for an atrial septal defect. AORTIC VALVE The aortic valve is calcified and displays decreased opening. The aortic valve is severely sclerotic. No aortic regurgitation is present. There is mild valvular aortic stenosis. There is no aortic valvular vegetation. MITRAL VALVE The mitral valve is thickened but opens well. Mitral regurgitation is mild to moderate. There is no mitral valve stenosis. There is no evidence of mitral valve prolapse. TRICUSPID VALVE The tricuspid valve leaflets are thickened , but open well. There is mild tricuspid regurgitation.RVSP-47 mmof Hg There is no tricuspid valve stenosis. There is no tricuspid valve prolapse or vegetation. PULMONIC VALVE The pulmonary valve is normal in structure. There is trace pulmonic valvular regurgitation. There is no pulmonic valvular stenosis. GREAT VESSELS The aortic root is normal in size. The ascending aorta is normal in size. The pulmonary artery is normal. The IVC is normal in size and collapses >50% with inspiration. PERICARDIAL EFFUSION There is no pleural effusion. There is no pericardial effusion. <Conclusion> The left ventricle is normal size. There is mild to moderate concentric left ventricular hypertrophy. The left ventricular function is normal.EF-55% There is mild valvular aortic stenosis. Mitral regurgitation is mild to moderate. There is mild tricuspid regurgitation.RVSP-47 mmof Hg
[2017-08-24] MEDS ORDERED: Insulin Regular 1 UNITS/0.01 ML ML SC STA (21:19)
[2017-08-25] MEDS: Levothyroxine 88 MCG TAB PO SCH (05:37)
[2017-08-25] MEDS: Pantoprazole 40 mg EC Tab PO SCH (05:37)
[2017-08-25 06:39] LABS: ALB/GLOB RATIO 0.9 (1.1-1.8); ALBUMIN 3.2 g/dL (3.0-4.8)
[2017-08-25 06:57] LABS: HEMOGLOBIN 8.5 g/dL (14.0-18.0); MEAN CELL VOLUME 86.3 fl (80.0-105.0); MEAN CORPUSCULAR HEMOGLOBIN 33.3 pg (25.0-35.0); MEAN CORPUSCULAR HGB CONC 38.6 g/dl (31.0-37.0); RBC 2.55 10^6/uL (3.5-6.1); RED CELL DISTRIBUTION WIDTH 14.6 % (11.5-14.5); WHITE BLOOD COUNT 5.4 10^3/ul (4.5-11.0)
[2017-08-25] MEDS: Insulin Reg-LOW-Coverage SC SCH ×4 (07:59→22:25)
[2017-08-25] MEDS: Metoprolol Succinate 50 mg XL Tab PO SCH (07:59)
--- NOTE | 2017-08-25 08:14 | PN ---
DATE: 08/24/2017 Addendum to the initial progress note dictated by our nurse practitioner, Sydnee Banda. REASON FOR ADDENDUM: Length of discussion done with the patient. All options were given. 1. Medical treatment. 2. Angioplasty high risk with Rotablator. 3. Open heart surgery. In the discussion, the patient's , sister, patient's son and 2 daughters were included, including the patient. All questions were answered. Apparently, medical treatment, it looks like is not going to work because the patient walked in the telemetry and developed tightness in the chest with shortness of breath. Because of severe atherosclerotic burden and severe coronary artery with triple vessels, appears the medical treatment fails. Optimal medical treatment definitely is failing and the patient is developing chest pain while in the telemetry unit. So, the option left for the revascularization is either open heart surgery or angioplasty. Patient's family is reluctant for open heart surgery and prefer to go for angioplasty, Rotablator, though understands the complication of Rotablator that if the artery ruptures, an emergent surgery can be consulted though it is durable, and also understands the patient after the angioplasty needs dialysis. This was explained by me as well as the organizational development specialist also. The patient was on dialysis before recently off dialysis, but the patient's family has preference for Rotablation and angioplasty. So, we will transfer the patient to [facility] for high risk angioplasty with Rotablation, but before that, I will try to set up for dialysis as the patient may need high dye load and need the dialysis. We will discuss with the organizational development specialist to do pre-PTCA some dialysis, the patient can lay flat on the table and have angioplasty, and then post-dialysis, the patient can have short run of dialysis. We will discuss with Nephrology. We will discuss with you. Discussed in length with the patient. Isabella Mcgregor MD
[2017-08-25] MEDS: Iron Complex Polysacch 150mg Cap PO SCH (09:39)
[2017-08-25] MEDS: Acetylcysteine 20% Inhal Soln (4ml) PO SCH ×3 (09:54→19:54)
--- NOTE | 2017-08-25 10:07 | PQF CHF ---
This form is a permanent part of the medical record Clarification of your documentation is requested to better reflect the severity of illness and intensity of treatment of your patient. Indicators present Admitted w/ Hx CHF, BNP 4000 on admission. ECHO- normal LVF - EF- 55%. Please document Type & acuity of CHF POA [x] Diagnosis of CHF and/or history of CHF [x] BNP > 200 [] Imaging Finding of Pulmonary Edema /Pleural Effusions [] Fluid/Volume Overload [] Pitting edema [] Ejection Fraction < 40% (Indicative of Systolic Heart Failure) [x] Ejection Fraction > 40% (Indicative of Diastolic Heart Failure) [] Dyspnea / Orthopenea / Paroxysmal Nocturnal Dyspnea [] Other: Location in the medical record that reflects the above clinical findings: [x] ECHO & cath report Treatment Provided: [x] IV Lasix PHYSICIAN'S RESPONSE Based on your medical judgment of the clinical indicators outlined above, are you treating this patient for a known or suspected: [] Acute CHF [] Systolic [] Diastolic [] Combined [] Chronic CHF [] Systolic [] Diastolic [] Combined [x] Acute on Chronic CHF []Systolic [x] Diastolic [] Combined [] CHF due hypertension [] Acute systolic []Chronic systolic [] Acute/ chronic systolic [] Other, please indicate: [] [] If Unable to Determine, please check the box, sign and date. Present On Admission (POA) Indicator: [] Present at the time of admission [] Not present at the time of admission [] Clinically Undetermined In responding to this query, please exercise your independent professional judgment. The fact that a question is asked does not imply that any particular answer is desired or expected. Thank you for your clarification on this documentation. If you have any questions please call:[ ][phone] * Thank you, [ ] Minal Cohn RN CDS nurse case manager [facility]
[2017-08-25] MEDS: Nystatin 100,000 Units/gm Topical Pow(15 gm) TOP SCH ×2 (10:16→19:01)
[2017-08-25] MEDS ORDERED: Lidocaine 2% Inj (20ml) ONE (13:45)
[2017-08-25] MEDS ORDERED: Iodixanol 320 MG/ML 200 ML BOTTLE IV ONE (13:45)
[2017-08-25] MEDS ORDERED: Midazolam 2 MG/2 ML VIAL ONE (13:57)
--- NOTE | 2017-08-25 13:59 | PN ---
DATE: 08/25/2017 REASON FOR CONSULTATION AND FOLLOWUP: Unstable angina, non-ST segment myocardial infarction, renal insufficiency, stage IV-V CKD, triple-vessel disease. SUBJECTIVE: The patient's family opted for rotablation angioplasty and declined for open heart surgery. The patient denies any chest pain feel shortness of breath and some tightness in the chest. OBJECTIVE: GENERAL: Not in any apparent distress, getting iron infusion. VITAL SIGNS: Temperature is afebrile, heart rate 61, blood pressure 115/56. HEENT: PERRLA. Extraocular muscles intact. NECK: Supple. No carotid bruits or thyromegaly. CHEST: Clear to auscultation. HEART: S1 and S2, regular. ABDOMEN: Soft. EXTREMITIES: Clubbing and cyanosis negative. LABORATORY DATA: Blood workup as follows: WBC 5.5, hemoglobin 8.5, hematocrit 22, platelet count 87. Chemistry shows sodium 141, potassium 4, chloride 110, carbon dioxide 17, anion gap of 18, BUN 50, creatinine 2.6. IMPRESSION: 1. Coronary artery disease. 2. Rkl-NO-vijcqoq myocardial infarction. 3. He is status post chronic triple-vessel disease, unstable angina, having chest pain while at the Telemetry. 4. Stage IV chronic kidney disease, had dialysis and off dialysis recently, kidney function is getting worse. 5. Type 2 diabetes. 6. Hypertension. 7. Hyperlipidemia. 8. Severe atherosclerotic disease. The patient's family declined for the open heart surgery to failed medical treatment. RECOMMENDATIONS: After lengthy discussion as mentioned above in previous note, patient wanted rotablation. PLAN: Continue Brilinta as patient is resistant to Plavix, PRU 302. Continue nitrates, continue beta-berkley, continue levothyroxine. Transferred to [facility] either tomorrow or Tuesday, but we will get the dialysis catheter today, so after the angioplasty, the patient will get the dialysis. Thank you Dr. Reyes for providing us the opportunity in taking care of Andrew Tanner. We will follow with you. We will continue gentle diuretics. Keep a negative fluid balance so that the patient can lay flat during angioplasty. Isabella Mcgregor MD cc: Jim Reyes MD [facility] # [phone]
[2017-08-25] MEDS ORDERED: Sodium Chloride 0.45% 1,000 ML IV SCH (14:45)
--- NOTE | 2017-08-25 17:06 | PN ---
DATE: 08/25/2017 SUBJECTIVE: The patient is seen sitting in bed. He is awake. He is alert. He is comfortable. He denies any pain. He denies any shortness of breath. PHYSICAL EXAMINATION GENERAL: Elderly male lying in bed. VITAL SIGNS: Blood pressure 115/56, heart rate 61, respiratory rate 20, temperature 98. HEENT: Normocephalic, atraumatic, positive pallor. NECK: Supple, no JVD. LUNGS: Bilateral equal air entry, bilateral equal expansion, no rales. CARDIAC: S1 and S2, regular rate and rhythm, no murmur, no rub. ABDOMEN: Obese, distended, soft, nontender, bowel sounds present. EXTREMITIES: No lower extremity edema. INTAKE AND OUTPUT: 420/1000. LABORATORY DATA: WBC 5, hemoglobin 8.5, hematocrit 22, platelets 87. Sodium 141, potassium 4.2, chloride 110, CO2 of 17, BUN 51, creatinine 2.6, glucose 164, calcium is 9.4, total bilirubin 1.2, AST 29, ALT 33, ammonia 65, albumin 3.2, globulin 3.5. CURRENT MEDICATIONS: Mucomyst, aspirin, Brilinta, iron 150, insulin, Imdur, Lasix 40 IV daily, Protonix, Nystatin, sodium bicarbonate 650 t.i.d., Synthroid 88, Toprol-XL 50. ASSESSMENT: 1. Stable chronic kidney disease, stage IV, history of acute kidney injury requiring dialysis. 2. Triple-vessel disease, admitted with acute coronary syndrome. 3. Severe anemia. 4. Non-insulin dependant diabetes mellitus. 5. Hypertension. 6. Cirrhosis of the liver. 7. Peripheral vascular disease. PLAN: 1. Renal function appears to be stable. 2. The patient received Aranesp 60 mcg yesterday. 3. He also received Venofer one dose. 4. Case discussed with Dr. Mcgregor, as per family wishes, the patient is going to be having a PTCA and Rotablator, hence will require dialysis postprocedure most probably. Dr. Emery Dia has been requested to put a PermCath. 5. Continue sodium bicarbonate. 6. Avoid nephrotoxins. 7. Discussed with the patient and at bedside. Selina Garcia MD [facility] # [id number]
--- NOTE | 2017-08-25 18:51 | VASCULAR ---
PROCEDURE: Ultrasound and fluoroscopic tunneled right IJ dialysis catheter. CLINICAL HISTORY: ESRD PHYSICIAN(S): Emery Dia M.D. TECHNIQUE: The relative risks and indications for the procedure were explained to the patient and his and informed written consent obtained. The patient was placed supine on the arteriography table and the right neck/chest was prepped and draped in the usual sterile fashion. 1% Xylocaine was used to anesthetize the skin and soft tissues at the puncture site. Conscious sedation and monitoring were provided throughout the procedure by a nurse. Under direct ultrasound guidance, the rightinternal jugular vein was punctured with a micropuncture set. A 0.035 Glidewire was advanced into the IVC. Sequential dilatation was performed with subsequent placement of a 24 cmCannon II catheter with its tip in the right atrium. A retrograde tunnel below the right clavicle was performed. The catheter was trimmed and the hub attached. Both ports aspirate and inject easily. The catheter was secured and a dressing applied. The patient tolerated the procedure well. IMPRESSION: 1. Ultrasound and fluoroscopically placed right IJ tunneled dialysis catheter.
--- NOTE | 2017-08-26 00:09 | PN ---
DATE: 08/25/2017 DAILY PROGRESS NOTE: SUBJECTIVE: The patient was seen this () evening in room 260, bed 1 with his and sister at bedside. He is resting comfortably in bed, awake, alert, comfortable. Family had a meeting and discussed the case with Dr. Mcgregor yesterday. The patient is scheduled for Roto - ablation of the coronary artery stenosis at [facility] transfer directions from the [facility]. In the meantime, we will try our best to keep the patient optimized. A dialysis catheter was placed today in the left subclavian area with dressing applied. Berto Reyes MD MTDD
[2017-08-26 02:51] LABS: HEMOGLOBIN 8.6 g/dL (14.0-18.0); MEAN CELL VOLUME 85.7 fl (80.0-105.0); MEAN CORPUSCULAR HEMOGLOBIN 33.3 pg (25.0-35.0); MEAN CORPUSCULAR HGB CONC 38.9 g/dl (31.0-37.0); MEAN PLATELET VOLUME 9.8 fl (7.0-11.0); RBC 2.58 10^6/uL (3.5-6.1); RED CELL DISTRIBUTION WIDTH 14.9 % (11.5-14.5); WHITE BLOOD COUNT 4.8 10^3/ul (4.5-11.0)
[2017-08-26] MEDS: Pantoprazole 40 mg EC Tab PO SCH (05:33)
[2017-08-26] MEDS: Levothyroxine 88 MCG TAB PO SCH (05:33)
[2017-08-26] MEDS: Insulin Reg-LOW-Coverage SC SCH ×4 (07:48→21:58)
[2017-08-26] MEDS: Metoprolol Succinate 50 mg XL Tab PO SCH (07:48)
--- NOTE | 2017-08-26 08:04 | CP.PCM.PN ---
Subjective - Date & Time of Evaluation Date of Evaluation: 08/26/17 Time of Evaluation: 06:45 - Subjective Subjective: Lying in bed, denies chest pain or shortness of breath at rest Reason for consultation and follow up: Cardiac evaluation for midsternal chest pain/ tightness,history of coronary artery disease with 5 coronary stents, cardiac ablation, CHF, IDDM, asbestosis,CKD stage 4 was on hemodialysis, DVT, hypertension, hypothyroidism, liver cirrhosis with ascites, and osteomyelitis, triple vessel disease. Seen and examined by me and Dr. Mcgregor Objective - Vital Signs/Intake and Output Vital Signs (last 24 hours): Temp Pulse Resp BP Pulse Ox 98.0 F 64 20 122/54 L 96 08/26/17 06:00 08/26/17 07:48 08/26/17 06:00 08/26/17 07:48 08/26/17 06:00 Intake and Output: 08/26/17 08/26/17 06:59 18:59 Intake Total 240 Output Total 1450 Balance -1210 - Medications Medications: Current Medications Acetylcysteine (Acetylcysteine 20%) 6 ml PO BID [facility] Last Admin: 08/25/17 19:54 Dose: 6 ml Aspirin (Aspirin Chewable) 81 mg PO DAILY [facility] Last Admin: 08/25/17 09:39 Dose: 81 mg Furosemide (Lasix) 40 mg IV DAILY [facility] Last Admin: 08/25/17 09:38 Dose: 40 mg Insulin Human Regular (Humulin R Low) 0 units SC ACHS [facility] PRN Reason: Protocol Last Admin: 08/26/17 07:48 Dose: 2 units Isosorbide Mononitrate (Imdur) 60 mg PO DAILY [facility] Last Admin: 08/25/17 09:38 Dose: 60 mg Levothyroxine Sodium (Synthroid) 88 mcg PO 0600 [facility] Last Admin: 08/26/17 05:33 Dose: 88 mcg Metoprolol Succinate (Toprol Xl) 50 mg PO BRK [facility] Last Admin: 08/26/17 07:48 Dose: 50 mg Nystatin (Nystop Topical Powder) 0 gm TOP BID [facility] Last Admin: 08/25/17 19:01 Dose: 2 applic Polysaccharide Iron Complex (Ferrex-150) 150 mg PO DAILY [facility] Last Admin: 08/25/17 09:39 Dose: 150 mg Sodium Bicarbonate (Sodium Bicarbonate Tab) 650 mg PO TID [facility] Last Admin: 08/25/17 18:59 Dose: 650 mg Ticagrelor (Brilinta) 90 mg PO BID [facility] Last Admin: 08/25/17 18:38 Dose: Not Given - Labs Labs: 08/26/17 02:40 08/25/17 05:30 PT 12.7 SECONDS (9.4-12.5) H 08/18/17 23:20 INR 1.11 (0.93-1.08) H 08/18/17 23:20 APTT 32.2 Seconds (25.1-36.5) 08/18/17 23:20 - Constitutional Appears: No Acute Distress - Eye Exam Eye Exam: Normal appearance - ENT Exam ENT Exam: Mucous Membranes Moist - Respiratory Exam Respiratory Exam: Decreased Breath Sounds, NORMAL BREATHING PATTERN - Cardiovascular Exam Cardiovascular Exam: REGULAR RHYTHM, +S1, +S2 Additional comments: telemetry NSR 60's - GI/Abdominal Exam GI & Abdominal Exam: Soft, Normal Bowel Sounds - Extremities Exam Extremities Exam: Normal Capillary Refill - Neurological Exam Neurological Exam: Alert, Awake, Oriented x3 - Psychiatric Exam Psychiatric exam: Normal Affect, Normal Mood - Skin Skin Exam: Intact, Normal Color, Warm Assessment and Plan - Assessment and Plan (Free Text) Assessment: A 72 year old male who came in to the ER due to midsternal chest pain/ tightness upon climbing up the stairs in their home, non-radiating. He took 4 baby aspirin with no relief. He claimed to have similar symptoms in the past. History of coronary artery disease with 5 coronary stents, cardiac ablation, CHF , IDDM, asbestosis, Chronic kidney disease was on hemodialysis, DVT, hypertension,hyperlipidemia, hypothyroidism, liver cirrhosis with ascites, and osteomyelitis. Positive troponin on this admission (Non ST segment myocardial infarction).Cardiac cath deferred at admission due to elevated BUN/creatinine and patients symptoms resolved however has chest pain and shortness of breath when walking. Dr. Mcgregor decided to do cardiac catheterization inspite of concern of renal function.Cardiac cath done 08/22/17-Heavily calcified coronaries, patent stent in mid circumflex,and mid OM,moderate to severe disease proximal OM1 and mid to distal LAD,occluded mid RCA, unable to take out stent due to calcification and tortousity of vessel.Renal on consult. Shiley catheter inserted for possible hemodialysis. for transfer to [facility] for Rotablation angioplasty. Plan: Shiley catheter inserted yesterday, bleeding at site last night according to RN pressure dressing applied, so far no further bleeding Family and patient decided to have Rotablation angioplasty For transfer to [facility] when bed available Unstable angina Denies chest pain at rest Stable blood pressure and heart rate Resistant to Plavix, started on Brillinta Continue current treatment Continue current medications Will follow up Plan and treatment discussed with Dr. Mcgregor
[2017-08-26] MEDS: Acetylcysteine 20% Inhal Soln (4ml) PO SCH ×2 (10:31→17:56)
[2017-08-26] MEDS: Iron Complex Polysacch 150mg Cap PO SCH (10:32)
[2017-08-26] MEDS: Nystatin 100,000 Units/gm Topical Pow(15 gm) TOP SCH ×2 (10:34→17:50)
--- NOTE | 2017-08-26 11:05 | RAD ---
HISTORY: bleeding R sub clav access. r/o hemothorax COMPARISON: 08/23/2017 FINDINGS: LUNGS: No active pulmonary disease. PLEURA: Calcified pleural plaques CARDIOVASCULAR: Mild cardiomegaly OSSEOUS STRUCTURES: No significant abnormalities. VISUALIZED UPPER ABDOMEN: Normal. OTHER FINDINGS: Right-sided dialysis catheter IMPRESSION: No active disease.
--- NOTE | 2017-08-26 20:40 | PN ---
DATE: 08/26/2017 SUBJECTIVE: The patient is currently seen on telemetry, comfortable supine in bed. He is status post placement of a right chest wall PermCath. The patient's decision together with the upper shaper is to be transferred to [facility] for rotablation of the coronary arteries. As the patient understands, this requires a large dye load. He understands that there is a good chance his BUN and creatinine could rise in an irreversible way and that he might require chronic dialysis; however, every attempt will be made to try and dialyze him immediately post procedure to remove his most contrast material as possible. Currently, the patient is chest pain free. MEDICATIONS Medication list reviewed. The patient is on acetylcysteine, aspirin, Brilinta, Ferrex, insulin, Imdur, IV Lasix, nystatin powder, sodium bicarbonate, Synthroid, and Toprol. PHYSICAL EXAMINATION: INTAKE AND OUTPUT: Intake is 300, output is 925. VITAL SIGNS: Blood pressure 117/55, temperature 98.1, pulse of 76 with respiratory rate of 18. HEENT: Normocephalic, atraumatic. Conjunctiva pale. Sclerae nonicteric. NECK: Supple. No neck vein distention. CHEST: Clear to auscultation and percussion with no rales, rhonchi, or wheezing. Positive new PermCath, right chest wall. Presently, no bleeding into the dressing. CARDIOVASCULAR: Regular rate and rhythm with /AI/MR/TR. No S3. No S4. No rub. ABDOMEN: Soft. Bowel sounds normal. No rebound, guarding, or masses noted. EXTREMITIES: No cyanosis, clubbing, or edema of the lower extremity. LABORATORY DATA: CBC: White blood cell count 4.8 with a hemoglobin of 8.6 and platelet count of 75,000. Chemistries done yesterday showed a BUN of 51 with a creatinine of 2.6, well within his baseline range. CO2 is 17. Chloride was 110. Sodium and potassium were normal. Glucose is 164. Ammonia level has been stable, last one was 50, down from 65. ASSESSMENT: 1. Chronic kidney disease stage 4, stable. Concern here is that the patient will require a large dye load for rotablation of the coronary arteries to be done at [facility] early next week. The patient will likely receive dialysis in the immediate post dye catheterization time period to help hopefully minimize the possible contrast nephrotoxicity, which will likely take place. If we are not successful and BUN and creatinine continue to rise, the patient will need to restart dialysis. 2. Status post mild hyperkalemia. Potassium level is now normal. Angiotensin-converting enzyme inhibitor therapy is presently on hold. 3. Metabolic acidosis with a CO2 level of 17. The patient will continue sodium bicarbonate therapy. 4. History of mto-nfuepzi-uvecwzpxp diabetes mellitus, currently on insulin. Glucose control is acceptable. 5. History of atherosclerotic heart disease, unstable angina, non-ST elevation myocardial infarction, acute coronary syndrome. Cardiac catheterization was positive for severe triple-vessel coronary artery disease, calcified coronary arteries, and occluded right coronary artery. 6. History of hypertension. Blood pressure control is excellent. 7. History of cirrhosis. Ammonia level is within acceptable limits. The patient receives lactulose on an as-needed basis. 8. History of peripheral vascular disease with recent toe infection. This has resolved. 9. History of anemia secondary to chronic kidney disease. The patient will continue receiving Aranesp. His last Aranesp dose was 60 mcg on 08/21/2017. The patient should receive another dose of Aranesp on 08/28/2017. The patient's iron saturations were acceptable at 21% and the patient should continue oral iron therapy. PLAN: 1. Discussed with the patient and the patient's sister. Agree with plan for immediate dialysis post cardiac catheterization and rotablation procedure to try and minimize nephrotoxicity. 2. Discussed with the patient the real possibility that he could develop irreversible worsening of his kidneys, which could lead him back to needing dialysis. 3. We will check his blood tests, likely one more time before transferring to [facility]. 4. Monitor if any bleeding as the patient remains on Brilinta. He did have initial bleeding at the site of PermCath insertion. Manpreet Dalton MD MTDJessica
[2017-08-27] MEDS: Levothyroxine 88 MCG TAB PO SCH (05:48)
[2017-08-27 08:00] LABS: BASO # 0.04 K/mm3 (0.0-2.0); BASO % 0.7 % (0.0-3.0); EOS # 0.2 (0.0-0.7); EOS % 3.8 % (1.5-5.0); GRAN # 3.23 (1.4-6.5); GRAN % 58.6 % (50.0-68.0); HEMOGLOBIN 9.4 g/dL (14.0-18.0); LYMPH # 1.5 (1.2-3.4); LYMPH % 26.7 % (22.0-35.0); MEAN CELL VOLUME 86.8 fl (80.0-105.0); MEAN CORPUSCULAR HEMOGLOBIN 32.6 pg (25.0-35.0); MEAN CORPUSCULAR HGB CONC 37.6 g/dl (31.0-37.0); MEAN PLATELET VOLUME 11.5 fl (7.0-11.0); MONO # 0.6 (0.1-0.6); MONO % 10.2 % (1.0-6.0); RBC 2.88 10^6/uL (3.5-6.1); RED CELL DISTRIBUTION WIDTH 14.9 % (11.5-14.5); WHITE BLOOD COUNT 5.5 10^3/ul (4.5-11.0)
[2017-08-27] MEDS: Metoprolol Succinate 50 mg XL Tab PO SCH (08:10)
[2017-08-27] MEDS: Insulin Reg-LOW-Coverage SC SCH ×4 (08:10→22:08)
[2017-08-27 08:13] LABS: CALCIUM 9.4 mg/dL (8.4-10.5)
[2017-08-27] MEDS: Iron Complex Polysacch 150mg Cap PO SCH (10:17)
[2017-08-27] MEDS: Acetylcysteine 20% Inhal Soln (4ml) PO SCH ×2 (10:19→18:12)
[2017-08-27] MEDS: Nystatin 100,000 Units/gm Topical Pow(15 gm) TOP SCH ×2 (10:23→18:12)
--- NOTE | 2017-08-27 14:10 | CARD ---
APPROVED REPORT EKG Measurement Heart [id number] MA 304P [id number] <Conclusion> Sinus rhythm with 1st degree AV block with premature atrial complexes Inferior infarct, age undetermined Abnormal ECG
--- NOTE | 2017-08-27 14:38 | PN ---
DATE: 08/27/2017 SUBJECTIVE: The patient is seen sitting in bed. He is awake. He is alert. He is comfortable. He denies any nausea or vomiting. He denies any diarrhea. He denies any shortness of breath. PHYSICAL EXAMINATION: GENERAL: Elderly male, sitting in bed. VITAL SIGNS: Blood pressure 118/60, heart rate 68, respiratory rate 20, temperature 98.1. HEENT: Normocephalic, atraumatic, positive pallor. NECK: Supple. No JVD. LUNGS: Bilateral equal air entry, bilateral equal expansion. CARDIAC: S1 and S2. Regular rate and rhythm, no murmur, no rub. ABDOMEN: Distended, soft, nontender, bowel sounds present. EXTREMITIES: No lower extremity edema. INTAKE AND OUTPUT: 420/1425 LABORATORY DATA: WBC 5.5, hemoglobin 9.4, hematocrit 25, platelets 96. Sodium 140, potassium 4.3, chloride 105, CO2 of 20, BUN 50, creatinine 2.9, glucose 215, calcium 9.4, phosphorus 3.5, magnesium 1.7. CURRENT MEDICATIONS: Mucomyst, aspirin, Brilinta, oral iron, insulin, Imdur, Lasix 40 IV daily. Nystatin, sodium bicarbonate 650 t.i.d., Synthroid, Toprol-XL. ASSESSMENT: 1. Acute kidney injury superimposed on chronic kidney disease stage IV, prerenal azotemia. 2. History of acute kidney injury in the past requiring hemodialysis. 3. Coronary artery disease, needs percutaneous transluminal coronary angioplasty and Rotablator. 4. Idi-jhdmrti-sqzpaiojp diabetes mellitus. 5. Hypertension, well controlled. 6. Cirrhosis of the liver. 7. Anemia of chronic disease. 8. Peripheral vascular disease. PLAN: 1. Change Lasix to 40 mg p.o. daily. 2. Restart lactulose 15 mg maintenance dose for his hepatic encephalopathy. 3. Hold Lasix tomorrow. 4. Monitor fingersticks and continue insulin coverage. 5. Avoid nephrotoxins. 6. Continue antianginal therapy. Selina Garcia MD
--- NOTE | 2017-08-27 16:27 | PN ---
DATE: 08/27/2017 CARDIOLOGY FOLLOWUP (Dr. Mcgregor) SUBJECTIVE: Patient is chest pain free. PHYSICAL EXAMINATION: VITAL SIGNS: Blood pressure is 118/60, the heart rate is in the 60s. NECK: Negative JVD. LUNGS: Without rales. HEART: S1, S2. EXTREMITIES: Without edema. LABORATORY DATA: BUN and creatinine 15 and 2.9. Glucose is 215. IMPRESSION: 1. Multivessel coronary artery disease. 2. Renal insufficiency. 3. Diabetes mellitus. 4. Angina. Given these findings, the patient is currently stable. Awaiting transfer to [facility] for Rotablator of the RCA. Emery Resendiz MD
--- NOTE | 2017-08-27 22:12 | PN ---
DATE: 08/27/2017 SUBJECTIVE: Patient was seen this Tuesday morning in room 260, bed 1, on telemetry with his sister, a registered nurse at the bedside. He is awake and comfortable and in good spirits. No chest pain, shortness of breath, or discomfort. There has been no further bleeding at the surgical site for the dialysis catheter insertion; he is in no pain and relatively comfortable. Medications were reviewed. Labs are showing improvement. He is scheduled for transfer to [facility] for roto-ablation of his coronary artery occlusion on Tuesday. Berto Reyes MD MTDD
--- NOTE | 2017-08-27 23:53 | PN ---
DATE: 08/26/2017 SUBJECTIVE: The patient was seen this Tuesday morning in room 260, bed 1 with his at the bedside. He was sleeping comfortably, but his night was disrupted by some bleeding from the IV dialysis access site. There is now a liter of saline in a bag resting applying pressure on the site, there is no active bleeding at this time. PHYSICAL EXAMINATION: HEENT: Head and neck are unremarkable. Conjunctivae slightly pale, but at baseline. LUNGS: Show good aeration, right and left. I do not feel any dullness at the base on the right nor can I percuss any dullness at the right base. HEART: Regular, not tachycardic, in fact borderline bradycardiac. EXTREMITIES: Thin, with no edema. IMPRESSION AND PLAN: Coronary artery disease, unstable angina, severe renal insufficiency. The patient is ready to be transferred to [facility] on Tuesday for rotablation of the coronary artery occlusion. I left a message at the office of Dr. Emery Dia to reassess the IV placement and we will order a portable chest x-ray for this morning. Berto Reyes MD
[2017-08-28] MEDS: Levothyroxine 88 MCG TAB PO SCH (06:00)
[2017-08-28] MEDS: Metoprolol Succinate 50 mg XL Tab PO SCH (08:17)
[2017-08-28] MEDS: Insulin Reg-LOW-Coverage SC SCH ×4 (08:17→22:00)
[2017-08-28] MEDS: Nystatin 100,000 Units/gm Topical Pow(15 gm) TOP SCH ×2 (09:58→17:28)
[2017-08-28] MEDS: Acetylcysteine 20% Inhal Soln (4ml) PO SCH ×2 (09:58→23:23)
[2017-08-28] MEDS: Iron Complex Polysacch 150mg Cap PO SCH (09:58)
--- NOTE | 2017-08-28 14:32 | PN ---
DATE: 08/28/2017 CARDIOLOGY FOLLOWUP SUBJECTIVE: The patient is chest pain free. PHYSICAL EXAMINATION: VITAL SIGNS: Blood pressure is 141/65, heart rates in the 60s. NECK: Negative JVD. LUNGS: Without rales. HEART: With S1, S2. EXTREMITIES: Without edema. LABORATORY DATA: Hemoglobin is 9.4. Chemistries, glucose is 221. IMPRESSION: 1. Triple-vessel coronary artery disease. 2. Diabetes mellitus. 3. Hypercholesterolemia. 4. Renal insufficiency. PLAN: Given these findings, the patient is for transfer to [facility] in the morning for Rotablator of the RCA. Emery Resendiz MD
--- NOTE | 2017-08-28 14:55 | PN ---
DATE: 08/28/2017 DAILY PROGRESS NOTE SUBJECTIVE: The patient was seen this Tuesday morning in room 260, bed 1 with his and sister and a registered nurse at the bedside. He is awake, alert, clear, and in good spirits on this Father's day, ready for transfer to [facility] tomorrow morning. PHYSICAL EXAMINATION: HEAD AND NECK: Unremarkable. LUNGS: Show good aeration, right and left. HEART: Not tachycardic. ABDOMEN: Soft. EXTREMITIES: Show no edema. LABORATORY DATA: Reviewed and are acceptable. Given his degree of renal insufficiency, I spoke with the patient and his family about the possibility of returning to [facility] after his procedure at [facility]. Of course, this will depend on whether or not dialysis will be needed and of course the outcome of the procedure. The patient is ready for transfer on the morning. TCU eval requested. Berto Reyes MD MTDJessica
[2017-08-28] MEDS ORDERED: Insulin Regular 1 UNITS/0.01 ML ML SC STA ×2 (22:47→22:48)
--- NOTE | 2017-08-28 22:48 | CP.PCM.PN ---
Subjective - Date & Time of Evaluation Date of Evaluation: 08/28/17 Time of Evaluation: 22:46 - Subjective Subjective: S:Patient was seen for blood glucose-485mg%. Has no complaints. Denies having eaten extra food. Is on sliding scale insulin coverage and for 400 mg % can have 5 units regular insulin. Medical record was reviewed. O: Last Vital Signs 3 Temp 97.8 F 08/28/17 23:59 Pulse 73 08/28/17 23:59 Resp 20 08/28/17 23:59 BP 151/69 H 08/28/17 23:59 Pulse Ox 100 08/28/17 23:59 Awake, alert , not in distress. LUNGS:Normal breathing pattern. A:Hyperglycemia. P:Regular insulin 10 Units SC stat. Objective - Vital Signs/Intake and Output Vital Signs (last 24 hours): Temp Pulse Resp BP Pulse Ox 97.1 F L 68 19 138/67 100 08/28/17 18:00 08/28/17 18:00 08/28/17 18:00 08/28/17 18:00 08/28/17 06:00 Intake and Output: 08/28/17 08/29/17 18:59 06:59 Intake Total 360 Balance 360 - Medications Medications: Current Medications Acetylcysteine (Acetylcysteine 20%) 6 ml PO BID [facility] Last Admin: 08/28/17 09:58 Dose: 6 ml Aspirin (Aspirin Chewable) 81 mg PO DAILY [facility] Last Admin: 08/28/17 09:58 Dose: 81 mg Furosemide (Lasix) 40 mg PO DAILY [facility] Insulin Human Regular (Humulin R Low) 0 units SC ACHS [facility] PRN Reason: Protocol Last Admin: 08/28/17 17:25 Dose: 4 units Isosorbide Mononitrate (Imdur) 60 mg PO DAILY [facility] Last Admin: 08/28/17 09:58 Dose: 60 mg Lactulose (Enulose) 10 gm PO DAILY [facility] Last Admin: 08/28/17 09:58 Dose: 10 gm Levothyroxine Sodium (Synthroid) 88 mcg PO 0600 [facility] Last Admin: 08/28/17 06:00 Dose: 88 mcg Metoprolol Succinate (Toprol Xl) 50 mg PO BRK [facility] Last Admin: 08/28/17 08:17 Dose: 50 mg Nystatin (Nystop Topical Powder) 0 gm TOP BID [facility] Last Admin: 08/28/17 17:28 Dose: 1 applic Polysaccharide Iron Complex (Ferrex-150) 150 mg PO DAILY [facility] Last Admin: 08/28/17 09:58 Dose: 150 mg Sodium Bicarbonate (Sodium Bicarbonate Tab) 650 mg PO TID [facility] Last Admin: 08/28/17 14:21 Dose: 650 mg Ticagrelor (Brilinta) 90 mg PO BID [facility] Last Admin: 08/28/17 17:28 Dose: 90 mg - Labs Labs: 08/27/17 07:30 08/27/17 07:30 PT 12.7 SECONDS (9.4-12.5) H 08/18/17 23:20 INR 1.11 (0.93-1.08) H 08/18/17 23:20 APTT 32.2 Seconds (25.1-36.5) 08/18/17 23:20
[2017-08-29] VITALS: RESP 20
[2017-08-29] MEDS: Levothyroxine 88 MCG TAB PO SCH (05:53)
[2017-08-29 06:31] VITALS: BP 142/71; PULSE 74; TEMP 97.9; O2SAT 98
--- NOTE | 2017-08-29 06:45 | CP.PCM.PN ---
Subjective - Date & Time of Evaluation Date of Evaluation: 08/29/17 Time of Evaluation: 06:30 - Subjective Subjective: Awake, awaiting transport to [facility], denies chest pain or shortness of breath at rest Reason for consultation and follow up: Cardiac evaluation for midsternal chest pain/ tightness,history of coronary artery disease with 5 coronary stents, cardiac ablation, CHF, IDDM, asbestosis,CKD stage 4 was on hemodialysis, DVT, hypertension, hypothyroidism, liver cirrhosis with ascites, and osteomyelitis, triple vessel disease. Seen and examined by me and Dr. Connors Objective - Vital Signs/Intake and Output Vital Signs (last 24 hours): Temp Pulse Resp BP Pulse Ox 97.9 F 74 20 142/71 98 08/29/17 06:00 08/29/17 06:00 08/29/17 06:00 08/29/17 06:00 08/29/17 06:00 Intake and Output: 08/28/17 08/29/17 18:59 06:59 Intake Total 360 360 Output Total 1875 Balance 360 -1515 - Medications Medications: Current Medications Acetylcysteine (Acetylcysteine 20%) 6 ml PO BID [facility] Last Admin: 08/28/17 23:23 Dose: 6 ml Aspirin (Aspirin Chewable) 81 mg PO DAILY [facility] Last Admin: 08/28/17 09:58 Dose: 81 mg Furosemide (Lasix) 40 mg PO DAILY [facility] Insulin Human Regular (Humulin R Low) 0 units SC ACHS [facility] PRN Reason: Protocol Last Admin: 08/28/17 17:25 Dose: 4 units Isosorbide Mononitrate (Imdur) 60 mg PO DAILY [facility] Last Admin: 08/28/17 09:58 Dose: 60 mg Lactulose (Enulose) 10 gm PO DAILY [facility] Last Admin: 08/28/17 09:58 Dose: 10 gm Levothyroxine Sodium (Synthroid) 88 mcg PO 0600 [facility] Last Admin: 08/29/17 05:53 Dose: 88 mcg Metoprolol Succinate (Toprol Xl) 50 mg PO BRK [facility] Last Admin: 08/28/17 08:17 Dose: 50 mg Nystatin (Nystop Topical Powder) 0 gm TOP BID [facility] Last Admin: 08/28/17 17:28 Dose: 1 applic Polysaccharide Iron Complex (Ferrex-150) 150 mg PO DAILY [facility] Last Admin: 08/28/17 09:58 Dose: 150 mg Sodium Bicarbonate (Sodium Bicarbonate Tab) 650 mg PO TID [facility] Last Admin: 08/28/17 23:22 Dose: 650 mg Ticagrelor (Brilinta) 90 mg PO BID [facility] Last Admin: 08/28/17 17:28 Dose: 90 mg - Labs Labs: 08/27/17 07:30 08/28/17 22:05 PT 12.7 SECONDS (9.4-12.5) H 08/18/17 23:20 INR 1.11 (0.93-1.08) H 08/18/17 23:20 APTT 32.2 Seconds (25.1-36.5) 08/18/17 23:20 - Constitutional Appears: No Acute Distress - Head Exam Head Exam: NORMOCEPHALIC - Eye Exam Eye Exam: Normal appearance - ENT Exam ENT Exam: Mucous Membranes Moist - Respiratory Exam Respiratory Exam: Clear to Ausculation Bilateral, NORMAL BREATHING PATTERN - Cardiovascular Exam Cardiovascular Exam: REGULAR RHYTHM, +S1, +S2 Additional comments: Telemetry-NSR right subclavian shiley catheter - GI/Abdominal Exam GI & Abdominal Exam: Soft, Normal Bowel Sounds - Extremities Exam Extremities Exam: Normal Capillary Refill - Neurological Exam Neurological Exam: Alert, Awake, Oriented x3 - Psychiatric Exam Psychiatric exam: Normal Affect, Normal Mood - Skin Skin Exam: Intact, Normal Color, Warm Assessment and Plan - Assessment and Plan (Free Text) Assessment: A 72 year old male who came in to the ER due to midsternal chest pain/ tightness upon climbing up the stairs in their home, non-radiating. He took 4 baby aspirin with no relief. He claimed to have similar symptoms in the past. History of coronary artery disease with 5 coronary stents, cardiac ablation, CHF , IDDM, asbestosis, Chronic kidney disease was on hemodialysis, DVT, hypertension,hyperlipidemia, hypothyroidism, liver cirrhosis with ascites, and osteomyelitis. Positive troponin on this admission (Non ST segment myocardial infarction).Cardiac cath deferred at admission due to elevated BUN/creatinine and patients symptoms resolved however has chest pain and shortness of breath when walking. Dr. Mcgregor decided to do cardiac catheterization inspite of concern of renal function.Cardiac cath done 08/22/17-Heavily calcified coronaries, patent stent in mid circumflex,and mid OM,moderate to severe disease proximal OM1 and mid to distal LAD,occluded mid RCA, unable to take out stent due to calcification and tortousity of vessel.Renal on consult. Shiley catheter inserted for possible hemodialysis. for transfer today to [facility] for Rotablation angioplasty. Plan: For transfer today to [facility] Scheduled Rotablation angioplasty at 9:30 am Shiley catheter inserted for possible hemodialysis Denies chest pain at rest Stable blood pressure and heart rate Resistant to Plavix, started on Brillinta Glucose elevated Continue current treatment Continue current medications Will follow up Plan and treatment discussed with Dr. Connors
== END 2017-08-29 08:28 | disposition home or self-care (01) | DRG 280 ==
LOC: ED 22:58 → ERH 08-19 00:39 → 2RNO 08-19 02:38
PROVIDERS: ADMIT Internal Medicine; ATTEND Internal Medicine
PROC: 4A023N7 Measurement of Cardiac Sampling and Pressure, Left Heart, Percutaneous Approach (ICD-10-PCS; principal; 2017-08-22)
PROC: B2151ZZ Fluoroscopy of Left Heart using Low Osmolar Contrast (ICD-10-PCS; 2017-08-22)
PROC: B2111ZZ Fluoroscopy of Multiple Coronary Arteries using Low Osmolar Contrast (ICD-10-PCS; 2017-08-22)
PROC: 0JH63XZ Insertion of Tunneled Vascular Access Device into Chest Subcutaneous Tissue and Fascia, Percutaneous Approach (ICD-10-PCS; 2017-08-25)
PROC: 05HM33Z Insertion of Infusion Device into Right Internal Jugular Vein, Percutaneous Approach (ICD-10-PCS; 2017-08-25)
PROC: B543ZZA Ultrasonography of Right Jugular Veins, Guidance (ICD-10-PCS; 2017-08-25)
DX: I21.4 Non-ST elevation (NSTEMI) myocardial infarction (principal); I50.33 Acute on chronic diastolic (congestive) heart failure; I13.2 Hypertensive heart and chronic kidney disease with heart failure and with stage 5 chronic kidney disease, or end stage renal disease; N17.9 Acute kidney failure, unspecified; N18.4 Chronic kidney disease, stage 4 (severe); R18.8 Other ascites; E87.2 Acidosis; J44.9 Chronic obstructive pulmonary disease, unspecified; K74.60 Unspecified cirrhosis of liver; E11.22 Type 2 diabetes mellitus with diabetic chronic kidney disease; I25.110 Atherosclerotic heart disease of native coronary artery with unstable angina pectoris; B18.2 Chronic viral hepatitis C; D63.1 Anemia in chronic kidney disease; E11.51 Type 2 diabetes mellitus with diabetic peripheral angiopathy without gangrene; E87.5 Hyperkalemia; H35.30 Unspecified macular degeneration; I25.82 Chronic total occlusion of coronary artery; E11.65 Type 2 diabetes mellitus with hyperglycemia; I08.3 Combined rheumatic disorders of mitral, aortic and tricuspid valves; E03.9 Hypothyroidism, unspecified; K72.10 Chronic hepatic failure without coma; E78.00 Pure hypercholesterolemia, unspecified; E78.5 Hyperlipidemia, unspecified; Z96.653 Presence of artificial knee joint, bilateral; Z87.891 Personal history of nicotine dependence; Z79.82 Long term (current) use of aspirin; Z95.5 Presence of coronary angioplasty implant and graft; Z79.4 Long term (current) use of insulin; Z87.09 Personal history of other diseases of the respiratory system; Z86.718 Personal history of other venous thrombosis and embolism

== ENCOUNTER 2017-10-05 23:27 | Inpatient (IN) | payer MEDICARE, OTHER ==
[2017-10-05] MEDS ORDERED: Morphine 2 mg/ml ISec IVP STA (23:46)
[2017-10-05] MEDS ORDERED: Nitroglycerin 2% Ointment Foilpak UD TOP STA (23:48)
[2017-10-05] MEDS ORDERED: Nitroglycerin 2% Ointment Foilpak UD TOP ONE (23:52)
[2017-10-05] MEDS ORDERED: Morphine 2 mg/ml ISec ONE (23:53)
[2017-10-05] MEDS ORDERED: Aspirin 325 mg EC Tablets PO ONE (23:53)
--- NOTE | 2017-10-05 23:53 | ED PDOC ---
Arrival/HPI - General Chief Complaint: Chest Pain Time Seen by Provider: 10/05/17 23:30 Historian: Patient - History of Present Illness Narrative History of Present Illness (Text): 10/06/17 00:03 72 year old male, whose past medical history includes CAD with 6 coronary stents , cardiac ablation, CHF, IDDM, asbestosis, ESRD, DVT, hypertension, hypothyroidism, liver cirrhosis with ascites, and osteomyelitis, who presents to the Emergency department with left sided chest pain tonight. Patient has been experiencing intermittent chest pain for approximately 1 month and had a recent cardiac stent placement in august of 2017. Patient was seen yesterday by his nougat candy maker helper and started on Roxera which he took tonight. Patient states tonight he developed worsening, non-radiating left-sided chest pain at 21:00. Patient regularly takes Brilinta and Aspirin. Patient denies any fever, nausea , vomiting, diarrhea, headache, dizziness, abdominal pain, or any other complaints. PMD: Dr. Reyes Library Attendant: Dr. Mcgregor Time/Duration: 1 hour Symptom Onset: Gradual Symptom Course: Unchanged Activities at Onset: Light Context: Home Past Medical History - Provider Review Nursing Documentation Reviewed: Yes - Infectious Disease Hx of Infectious Diseases: None - Cardiac Hx Congestive Heart Failure: Yes Hx Hypertension: Yes - Pulmonary Hx Respiratory Disorders: Yes Hx Chronic Obstructive Pulmonary Disease (COPD): Yes - Neurological Hx Neurological Disorder: No - HEENT Hx HEENT Disorder: Yes (glasses) Hx Macular Degeneration: Yes - Renal Hx Renal Failure: Yes (Pt not on dialysis since may 2017) - Endocrine/Metabolic Hx Diabetes Mellitus Type 1: Yes Hx Hypothyroidism: Yes - Hematological/Oncological Hx Blood Disorders: Yes Hx Cirrhosis: Yes (liver) - Integumentary Hx Dermatological Disorder: No - Musculoskeletal/Rheumatological Hx Musculoskeletal Disorders: Yes Hx Falls: No Hx Osteomyelitis: Yes - Gastrointestinal Hx Gastrointestinal Disorders: No - Genitourinary/Gynecological Hx Genitourinary Disorders: No - Psychiatric Hx Psychophysiologic Disorder: No Hx Substance Use: No - Surgical History Hx Cardiac Catheterization: Yes Hx Cholecystectomy: Yes Hx Coronary Stent: Yes (5 stents) Hx Musculoskeletal Surgery: Yes (B/L total knee replacement) - Anesthesia Hx Anesthesia: Yes Hx Anesthesia Reactions: No Hx Malignant Hyperthermia: No - Suicidal Assessment Feels Threatened In Home Enviroment: No Family/Social History - Physician Review Nursing Documentation Reviewed: Yes Family/Social History: No Known Family HX Smoking Status: Never Smoked Hx Alcohol Use: No Hx Substance Use: No Allergies/Home Meds Allergies/Adverse Reactions: Allergies No Known Allergies Allergy (Verified 10/05/17 23:31) Home Medications: Home Meds Medication Instructions Recorded Confirmed Levothyroxine [Synthroid] 88 mcg PO DAILY 02/17/17 10/05/17 Metoprolol Succinate XL [Toprol XL] 50 mg PO DAILY 02/17/17 10/05/17 Insulin Aspart Prot/Insuln Asp 25 unit SC BID 03/12/17 10/05/17 [Novolog Mix 70-30 Vial] Lactulose [Generlac] 10 ml PO DAILY 04/19/17 10/05/17 Ramipril [Altace] 1.25 mg PO DAILY 04/19/17 10/05/17 Liraglutide [Victoza 3-Anuel] 1.2 mg SC QPM 07/21/17 10/05/17 Nitroglycerin [Nitrostat] 0.4 mg SL PRN PRN 07/21/17 10/05/17 Vitamin B Complex [Super B-50 1 tab PO DAILY 07/21/17 10/05/17 Complex] Review of Systems - Physician Review All systems were reviewed & negative as marked: Yes - Review of Systems Constitutional: Normal. absent: Fevers Eyes: Normal ENT: Normal Respiratory: absent: SOB Cardiovascular: Chest Pain (Left sided chest pain) Gastrointestinal: Normal. absent: Abdominal Pain, Diarrhea, Nausea, Vomiting Genitourinary Male: Normal Musculoskeletal: Normal Skin: Normal Neurological: Normal. absent: Headache, Dizziness Endocrine: Normal Hemo/Lymphatic: Normal Psychiatric: Normal Physical Exam Vital Signs Reviewed: Yes Vital Signs Pulse Resp BP Pulse Ox 10/05/17 23:30 90 19 163/78 H 100 Temperature: Afebrile Blood Pressure: Hypertensive Pulse: Regular Respiratory Rate: Normal Appearance: Positive for: Well-Appearing, Non-Toxic, Comfortable Pain Distress: None Mental Status: Positive for: Alert and Oriented X 3 - Systems Exam Head: Present: Atraumatic, Normocephalic Pupils: Present: PERRL Extroacular Muscles: Present: EOMI Conjunctiva: Present: Normal Mouth: Present: Moist Mucous Membranes Neck: Present: Normal Range of Motion Respiratory/Chest: Present: Clear to Auscultation, Good Air Exchange. No: Respiratory Distress, Accessory Muscle Use Cardiovascular: Present: Regular Rate and Rhythm, Normal S1, S2. No: Murmurs Abdomen: No: Tenderness, Distention, Peritoneal Signs Back: Present: Normal Inspection Upper Extremity: Present: Normal Inspection. No: Cyanosis, Edema Lower Extremity: Present: Normal Inspection. No: Edema Neurological: Present: GCS=15, CN II-XII Intact, Speech Normal Skin: Present: Warm, Dry, Normal Color. No: Rashes Psychiatric: Present: Alert, Oriented x 3, Normal Insight, Normal Concentration Medical Decision Making ED Course and Treatment: 10/05/17 23:56 Impression: 72 year old male presents to the emergency department with left- sided chest pain. Plan: -- EKG -- Chest X-ray -- Labs -- Aspirin -- Morphine -- Nitroglycerin -- Reassess and disposition Prior Visits: Notes and results from previous visits were reviewed. Patient was last seen in the emergency department on 08/18/17 for chest pain. Patient was admitted to the hospital for further evaluation. Progress Notes: Reviewed EKG, NSR at 89 bpm. 1st degree AV block. Non-specific ST/T wave changes laterally 10/06/17 00:30 Chest X-ray reviewed, shows: mildly increased pulmonary-vascular marking 10/06/17 01:[address] Reyes, who is aware and agrees with plan. Accepts pt in to his service. Pt will go to Telemetry observation for chest pain. Requests Dr. Mcgregor and Dr. Dalton on consult. - Lab Interpretations Lab Results: 10/05/17 23:35 10/05/17 23:35 Lab Results 10/05/17 23:35: WBC 5.9, RBC 3.22 L, Hgb 10.7 L, Hct 28.5 L, MCV 88.5, MCH 33.2 , MCHC 37.5 H, RDW 14.6 H, Plt Count 98 L, MPV 11.8 H 10/05/17 23:35: Sodium 141, Potassium 5.5 H, Chloride 112 H, Carbon Dioxide 15 L , Anion Gap 20, BUN 52 H, Creatinine 2.1 H, Est GFR ( Amer) 38, Est GFR ( Non-Af Amer) 31, Random Glucose 228 H, Calcium 9.0, Total Bilirubin 1.2, AST 68 H D, ALT 43, Alkaline Phosphatase 145 H D, Lactate Dehydrogenase 971 H, Total Creatine Kinase 65, Troponin I 0.03 D, NT-Pro-B Natriuret Pep 3020 H, Total Protein 8.2, Albumin 4.0, Globulin 4.2, Albumin/Globulin Ratio 1.0 L 10/05/17 23:35: PT 12.3, INR 1.08, APTT 31.7 I have reviewed the lab results: Yes - RAD Interpretation Radiology Orders: 10/05/17 23:48 CHEST PORTABLE [RAD] Stat Barrelhead Inspector: ED Physician - EKG Interpretation Interpreted by ED Physician: Yes Type: 12 lead EKG - Medication Orders Current Medication Orders: Discontinued Medications Aspirin (Aspirin) 325 mg PO ONCE STA Stop: 10/05/17 23:47 Last Admin: 10/05/17 23:55 Dose: 325 mg Furosemide (Lasix) 40 mg IVP ONCE ONE Stop: 10/06/17 00:23 Morphine Sulfate (Morphine) 2 mg IVP STAT STA Stop: 10/05/17 23:47 Last Admin: 10/05/17 23:55 Dose: 2 mg MAR Pain Assessment Document 10/05/17 23:55 JOL (Rec: 10/06/17 00:13 [id number] Pain Reassessment Is this a pain reassessment? No Sleep Is patient sleeping during reassessment? No Presence of Pain Presence of Pain Yes Pain Scale Used Pain Scale Used Numeric Location Left, Right or Bilateral Left Pain Location Body Site Chest Description Intensity of Pain at present 6 Pain Behavior Grasping Site Restlessness Facial Grimacing IVP Administration Document 10/05/17 23:55 JOL (Rec: 10/06/17 00:13 [id number]) Charges for Administration # of IVP Administrations 1 Nitroglycerin (Nitro-Bid 2% Oint) 1 ea TOP ONCE STA Stop: 10/05/17 23:49 Last Admin: 10/05/17 23:55 Dose: 1 ea Sodium Polystyrene Sulfonate (Kayexalate Susp) 30 gm PO ONCE ONE Stop: 10/06/17 00:24 - Scribe Statement The provider has reviewed the documentation as recorded by the Scribannabelle Messina, Training with Ursula All medical record entries made by the Scribe were at my direction and personally dictated by me. I have reviewed the chart and agree that the record accurately reflects my personal performance of the history, physical exam, medical decision making, and the department course for this patient. I have also personally directed, reviewed, and agree with the discharge instructions and disposition. Disposition/Present on Arrival - Present on Arrival Any Indicators Present on Arrival: No History of DVT/PE: No History of Uncontrolled Diabetes: No Urinary Catheter: No History of Decub. Ulcer: No History Surgical Site Infection Following: None - Disposition Have Diagnosis and Disposition been Completed?: Yes Diagnosis: CHF (congestive heart failure), Chest pain, Renal insufficiency Disposition: HOSPITALIZED Disposition Time: 02:26 Patient Plan: Admission Condition: STABLE Discharge Instructions (ExitCare): Heart Failure (ED), Chest Pain (ED) Referrals: Jim Reyes MD [Primary Care Provider] - Follow up with primary Forms: [employer] (Slovenian)
[2017-10-05 23:57] LABS: HEMOGLOBIN 10.7 g/dL (14.0-18.0); MEAN CELL VOLUME 88.5 fl (80.0-105.0); MEAN CORPUSCULAR HEMOGLOBIN 33.2 pg (25.0-35.0); MEAN CORPUSCULAR HGB CONC 37.5 g/dl (31.0-37.0); MEAN PLATELET VOLUME 11.8 fl (7.0-11.0); RBC 3.22 10^6/uL (3.5-6.1); RED CELL DISTRIBUTION WIDTH 14.6 % (11.5-14.5); WHITE BLOOD COUNT 5.9 10^3/ul (4.5-11.0)
[2017-10-06 00:17] LABS: TROPONIN I 0.03 ng/mL
[2017-10-06 00:21] LABS: INR 1.08 (0.93-1.08); PARTIAL THROMBOPLASTIN TIME 31.7 Seconds (25.1-36.5); PROTHROMBIN TIME 12.3 SECONDS (9.4-12.5)
[2017-10-06] MEDS ORDERED: Sod Polystyrene Sulf 15 gm/60 ml Susp PO ONE (00:23)
[2017-10-06 04:36] VITALS: BMI 27.2
[2017-10-06 06:05] VITALS: O2SAT 99
[2017-10-06 07:56] LABS: ALBUMIN 3.8 g/dL (3.0-4.8); CALCIUM 9.6 mg/dL (8.4-10.5)
[2017-10-06 08:27] LABS: TROPONIN I 1.2 ng/mL
--- NOTE | 2017-10-06 09:14 | RAD ---
Date of service: 10/05/2017 HISTORY: CHEST PAIN COMPARISON: 08/26/2017 FINDINGS: LUNGS: No active pulmonary disease. PLEURA: Calcified pleural plaques CARDIOVASCULAR: Normal. OSSEOUS STRUCTURES: No significant abnormalities. VISUALIZED UPPER ABDOMEN: Normal. OTHER FINDINGS: None. IMPRESSION: No active disease.
[2017-10-06] MEDS ORDERED: Metoprolol Succinate 50 mg XL Tab PO SCH (10:15)
[2017-10-06 10:56] LABS: FREE T4 2.17 ng/dL (0.78-2.19)
[2017-10-06] MEDS: Insulin Human NPH/Reg 70/30 Vial(3 ml) SC SCH ×2 (11:24→18:00)
[2017-10-06] MEDS: Metoprolol Succinate 50 mg XL Tab PO SCH (11:25)
[2017-10-06 11:46] LABS: HDL CHOLESTEROL 37 mg/dL (29-60); LDL CHOLESTEROL 59 mg/dL (0-129)
--- NOTE | 2017-10-06 11:46 | CP.PCM.CON ---
History of Present Illness - History of Present Illness History of Present Illness: Awake. alert, denies chest pain now, but upon admission non-radiating left- sided chest pain, denies shortness of breath Reason for consultation: Cardiac evaluation of chest pain, History of coronary artery disease, with 6 coronary stents, cardiac ablation, congestive heart failure. Brief history of present illness:A 72 year old male who came in to the ER due to left sided chest pain non radiating. Patient known to service. He was just in the office for follow up yesrterday. History of coronary artery disease, with 6 coronary stents, cardiac ablation, CHF, IDDM, asbestosis, ESRD, DVT, hypertension, hypothyroidism, liver cirrhosis with ascites, and osteomyelitis. Seen and examined by me and Dr. Mcgregor Review of Systems - Review of Systems All systems: reviewed and no additional remarkable complaints except Review of Systems: from HPI Past Patient History - Infectious Disease Hx of Infectious Diseases: None - Past Social History Smoking Status: Never Smoked - CARDIAC Hx Cardiac Disorders: Yes Hx Cardia Arrhythmia: Yes (Afib) Hx Congestive Heart Failure: Yes Hx Hypertension: Yes Other/Comment: Cardiac Ablation - PULMONARY Hx Respiratory Disorders: Yes Hx Chronic Obstructive Pulmonary Disease (COPD): Yes - NEUROLOGICAL Hx Neurological Disorder: No - HEENT Hx HEENT Problems: Yes (glasses) - RENAL Hx Chronic Kidney Disease: Yes Hx Renal Failure: Yes (Pt not on dialysis since may 2017) - ENDOCRINE/METABOLIC Hx Endocrine Disorders: Yes Hx Diabetes Mellitus Type 1: Yes Hx Hypothyroidism: Yes - HEMATOLOGICAL/ONCOLOGICAL Hx Blood Disorders: Yes Hx Cirrhosis: Yes (liver) - INTEGUMENTARY Hx Dermatological Problems: No - MUSCULOSKELETAL/RHEUMATOLOGICAL Hx Musculoskeletal Disorders: Yes Hx Falls: No Hx Osteomyelitis: Yes - GASTROINTESTINAL Hx Gastrointestinal Disorders: No - GENITOURINARY/GYNECOLOGICAL Hx Genitourinary Disorders: No - PSYCHIATRIC Hx Psychophysiologic Disorder: No Hx Substance Use: No - SURGICAL HISTORY Hx Surgeries: Yes Hx Cardiac Catheterization: Yes Hx Cholecystectomy: Yes Hx Coronary Stent: Yes (6 stents) Hx Musculoskeletal Surgery: Yes (B/L total knee replacement) - ANESTHESIA Hx Anesthesia: Yes Hx Anesthesia Reactions: No Hx Malignant Hyperthermia: No Meds Allergies/Adverse Reactions: Allergies Allergy/AdvReac Type Severity Reaction Status Date / Time No Known Allergies Allergy Verified 10/05/17 23:31 - Medications Medications: Current Medications Acetaminophen (Tylenol 325mg Tab) 650 mg PO Q6H PRN PRN Reason: Pain, Mild (1-3) Aspirin (Aspirin Chewable) 81 mg PO DAILY [facility] Last Admin: 10/06/17 11:24 Dose: 81 mg Famotidine (Pepcid) 20 mg PO 10 MOHINEDR Lactulose (Enulose) 10 gm PO DAILY [facility] Levothyroxine Sodium (Synthroid) 88 mcg PO 0600 [facility] Metoprolol Succinate (Toprol Xl) 50 mg PO BRK [facility] Last Admin: 10/06/17 11:25 Dose: 50 mg Nitroglycerin (Nitro-Bid 2% Oint) 1 ea TOP Q6 [facility] Ticagrelor (Brilinta) 90 mg PO BID [facility] Last Admin: 10/06/17 11:24 Dose: 90 mg Vitamin B Complex/Vit C/Folic Acid (Nephro-Yves) 1 tab PO 0800 [facility] Physical Exam - Constitutional Appears: No Acute Distress - Eye Exam Eye Exam: Normal appearance - ENT Exam ENT Exam: Mucous Membranes Moist - Respiratory Exam Respiratory Exam: Decreased Breath Sounds, NORMAL BREATHING PATTERN - Cardiovascular Exam Cardiovascular Exam: REGULAR RHYTHM, +S1, +S2 Additional comments: denies chest pain now - GI/Abdominal Exam GI & Abdominal Exam: Normal Bowel Sounds, Soft - Extremities Exam Additional comments: left rae wound with dressing - Psychiatric Exam Psychiatric exam: Normal Affect - Skin Skin Exam: Intact, Warm Results - Vital Signs Recent Vital Signs: Last Vital Signs Temp 98.5 F 10/06/17 06:00 Pulse 72 10/06/17 11:25 Resp 20 10/06/17 06:00 BP 154/70 H 10/06/17 11:25 Pulse Ox 99 10/06/17 06:00 - Labs Result Diagrams: 10/05/17 23:35 10/06/17 07:30 Labs: Laboratory Results - last 24 hr 10/06/17 10/06/17 10/06/17 07:18 07:30 07:30 Sodium 145 Potassium 4.8 Chloride 112 H Carbon Dioxide 17 L Anion Gap 21 H BUN 48 H Creatinine 2.2 H Est GFR ( Amer) 36 Est GFR (Non-Af Amer) 29 POC Glucose (mg/dL) 159 H Random Glucose 160 H Calcium 9.6 Total Bilirubin 0.8 AST 52 ALT 46 Alkaline Phosphatase 128 H Troponin I 1.20 H* D Total Protein 7.5 Albumin 3.8 Globulin 3.7 Albumin/Globulin Ratio 1.0 L Free T4 2.17 TSH 3rd Generation < 0.02 L Assessment & Plan - Assessment and Plan (Free Text) Assessment: A 72 year old male who came in to the ER due to left sided chest pain non radiating. Patient known to service. He was just in the office for follow up yesterday. History of coronary artery disease, with 6 coronary stents, cardiac ablation, CHF, IDDM, asbestosis, ESRD, DVT, hypertension, hypothyroidism, liver cirrhosis with ascites, and osteomyelitis. Patient was [facility] admitted [place] [facility] [place]. Treated medically and cardiac cath deferred initially due to elevated BUN/Creatinine. Chest pain was resolved however he got short of breath on ambulation and on exertion. Dr. Mcgregor decided to perform the cardiac catheterization inspite of concern of renal function. Explained to patient and family the possibility of hemodialysis post cardiac cath. A shiley catheter was inserted in anticipation of hemodialysis if necessary. Review of cardiac work up: 08/23/17- ECHO done- left ventricular hyperthropy, LVEF 55%, moderate MR,mild TR 08/22/17 Cardiac cath done- heavily calcified coronaries, Patent stent in circumflex and mid OM1 moderate to severe disease proximal OM1 and mid to distal LAD Occluded mid RCA, (previous PTCA site) unable to take out stent due to calcification and tortousity of vessel Preserved LVEF 55%, EDP 20 mmhg Cath result discussed with patient and family. Option for high risk PTCA and open heart surgery discussed with patient and family, and decision opted for high risk PTCA thus patient was transferred to [facility] 08/29/17. 08/29/17- Successful Rotoablation angioplasty of RCA at [facility] Plan: Positive troponin For emergent cardiac cath today BUN/creatinine 48/2.2 Started IV fluids for hydration Instructed NPO Will follow up Plan and treatment discussed with Dr. Mcgregor Thank you Dr. Reyes for the opportunity of taking care of Mr. Andrew Tabares - Date & Time Date: 10/06/17 Time: 06:40
[2017-10-06] MEDS ORDERED: Acetylcysteine 20% Inhal Soln (4ml) PO STA (12:05)
[2017-10-06] MEDS ORDERED: Lidocaine 2% Inj (20ml) ONE (12:34)
[2017-10-06] MEDS ORDERED: Iodixanol 320 MG/ML 100 ML BOTTLE IV ONE (12:35)
[2017-10-06] MEDS ORDERED: Iodixanol 320 MG/ML 200 ML BOTTLE IV ONE (12:35)
[2017-10-06] MEDS ORDERED: Iohexol 350mgl/ml 50 ML ONE (12:35)
[2017-10-06] MEDS ORDERED: Nitroglycerin 50mg in D5W 0 MG/0 ML BOTTLE IV ONE (12:35)
--- NOTE | 2017-10-06 13:04 | PN ---
DATE: 10/06/2017 This progress note is in addition to the consult dictated this morning by the nurse practitioner, Chalo. REASON FOR DICTATION: Repeat troponin shows elevated 1.2, first admitting troponin was 0.03. Patient was complaining of chest pain last night. This has now resolved, but has troponin of 1.2, rising troponin and the creatinine is 2.2. In view of above, discussed with family. We will schedule the patient's cardiac catheterization this afternoon. We will start hydrating with 100 mL of normal saline. We will give Mucomyst and cardiac catheterization this afternoon. Further recommendation after cardiac catheterization. Discussed with patient's family. We will proceed for cardiac catheterization. We will resume Brilinta, aspirin. We will follow with you. Isabella Mcgregor MD
[2017-10-06] MEDS ORDERED: Midazolam 2 MG/2 ML VIAL ONE ×2 (13:12→14:01)
[2017-10-06] MEDS ORDERED: Phenylephrine 10 mg/ml Inj ONE (13:23)
[2017-10-06] MEDS ORDERED: Eptifibatide 20 mg/10mL Inj IVP ONE (13:24)
[2017-10-06] MEDS ORDERED: Morphine 4 mg/ml ISec ONE (13:49)
[2017-10-06] MEDS ORDERED: Eptifibatide 0.75 mg/ml 75 MG/100 ML BOTTLE IV ONE (14:40)
--- NOTE | 2017-10-06 14:45 | US ---
Date of service: 10/06/2017 HISTORY: ascitis COMPARISON: None. TECHNIQUE: Sonographic evaluation of the abdomen. FINDINGS: LIVER: Measures 18.8 cm. Normal echogenicity of the liver parenchyma. No mass. No intrahepatic bile duct dilatation. GALLBLADDER: Status post cholecystectomy COMMON BILE DUCT: Measures 6 mm. No stones. No dilatation. PANCREAS: Unremarkable as visualized. No mass. No ductal dilatation. RIGHT KIDNEY: Measures 11.1cm. Normal echogenicity. No calculus, mass, or hydronephrosis. LEFT KIDNEY: Measures 9.0cm. Normal echogenicity. No calculus, mass, or hydronephrosis. SPLEEN: Splenomegaly. The spleen measures 16.3 cm in greatest dimension. AORTA: No aneurysmal dilatation. IVC: Unremarkable. OTHER FINDINGS: None. IMPRESSION: Splenomegaly. Mild hepatomegaly. Status post cholecystectomy.
--- NOTE | 2017-10-06 15:22 | CPOSTOP ---
DATE: 10/06/2017 CARDIOVASCULAR LAB POST PROCEDURE NOTE DICTATING PHYSICIAN: Isabella Mcgregor MD. POWDER MIXER: Susan cardiopulmonary technician and eeg tech. TYPE OF ANESTHESIA USED: Moderate conscious sedation, total dose 3 mg of Versed, 150 of fentanyl given. Periodically started 1 mg of Versed, 50 o fentanyl. PRE-PROCEDURE DIAGNOSES: Unstable angina, [id number] myocardial infarction, coronary artery disease. PROCEDURE PERFORMED: 1. Left heart catheterization. 2. Stenting of proximal and mild left anterior descending artery. FINDINGS: LAD proximal 80%, mid LAD 99% stenosis. FINAL DIAGNOSIS: Multivessel coronary artery disease. POST PROCEDURE CONDITION: Post procedure, the patient's condition is stable. VASCULAR ACCESS SITE: Right femoral artery. CLOSURE DEVICE APPLIED: Mynx. TOTAL RADIATION DOSE: 39,111.2 milligray unit. TOTAL FLUORO TIME: 31.6 minutes. Isabella Mcgregor MD MTDD
[2017-10-06] MEDS: Eptifibatide 0.75 mg/ml 75 MG/100 ML BOTTLE IV SCH (15:38)
--- NOTE | 2017-10-06 17:02 | CARD ---
APPROVED REPORT Date of service: 10/06/2017 Procedure(s) performed: Left Heart Catheterization PTCA with Stenting of Mid LAD with JOANNA PTCA with Stenting of Proximal LAD HISTORY The patient is a 72 year-old male with a history of : previous CHF, renal failure without dialysis, diabetes mellitus with insulin treatment , chronic lung disease, previous diagnostic cath, tobacco history() : The patient is a current smoker , previous PCI (The PCI date was 08/2017), hypertension , dyslipidemia , Hx of CAd S/p Multiple PTCA recently PTCA of RCA after rota ablation in [facility], CKD was on dialysis now off dialysis, HTN admitted with ACS/ NSTAMI. INDICATION The indication(s) include : non-STEMI . CASE TECHNIQUE The patient was brought emergently to the Cardiac Catheterization Laboratory in a fasting state and was prepped and draped in a sterile manner. The right femoral groin was infiltrated with 2% Lidocaine subcutaneous anesthesia. A 6 Fr x 10 cm Boston sheath was inserted into the right femoral artery without difficulty. Coronary angiography was performed using coronary diagnostic catheters. The left coronary system was accessed and visualized with a Diagnostic , 5F JL 4 CATH DXT 100 CM catheter. The right coronary system was accessed and visualized with a Diagnostic ,5 Fr JR 4 catheter. The left ventricle was accessed and visualized with a 5F PIGTAIL 145 CATH DXT 110 CM catheter. Left ventricular/Aortic Valve gradient assessed on pullback. Left ventriculogram was performed in VERDIN projection. The patient tolerated the procedure well and there were no complications associated with the procedure. Vessel Analysis The patient's coronary anatomy is right dominant. The left main coronary artery is a large size vessel with diffuse calcification noted throughout this vessel and without significant stenosis. The left main bifurcates to the left anterior descending and circumflex. The left anterior descending artery is a medium size vessel with diffuse calcification noted throughout this vessel and with significant stenosis. There is a 95% stenosis in the mid segment. proximal LAD has 80% stenosis The first diagonal branch is a small size vessel with diffuse calcification noted throughout this vessel and without significant stenosis. The second diagonal branch is a small size vessel with diffuse calcification noted throughout this vessel and without significant stenosis. The circumflex artery is a medium size vessel with diffuse calcification noted throughout this vessel and without significant stenosis. The first obtuse marginal branch is a medium size vessel with diffuse calcification noted throughout this vessel and without significant stenosis. There is a 60% stenosis in the proximal segment. patent stent npted in mid segment The right coronary artery is a large size vessel with diffuse calcification noted throughout this vessel and with significant stenosis. There is a 80% stenosis in the proximal to mid segment. patent stent noted in mid to distal segment The right posterior descending artery is a medium size vessel with diffuse calcification noted throughout this vessel and without significant stenosis. The right posterolateral branch is a small size vessel with diffuse calcification noted throughout this vessel and without significant stenosis. Left Ventricle The left ventricle is borderline in size with normal contractility. There was no cardiomyopathy. The left ventricular ejection fraction is estimated to be 55%. The left ventricular end diastolic pressure is 15 mmHg. There was no gradient across the aortic valve upon pullback. PCI Technique Lesion Anticoagulation was achieved with Heparin and , Integrilin. Percutaneous coronary intervention was performed on the mid left anterior descending artery segment. The lesion stenosis prior to intervention was 95% with JERRY 1 flow. A 6 Fr XB 3.5 Guide Catheter was used to engage the ostium. A Luge 182 Interventional Guidewire was used to cross the lesion. BALLOON DILATION A Balloon catheter 2.5 x 8 mm Trek RX NC was inserted and inflated up to 12.00atm for 8seconds. STENT DEPLOYMENT A drug-eluting stent STENT RESOLUTE SUSAN 2.5 X 08 was inserted and inflated up to 12.00atm for 21seconds. POST STENT DEPLOYMENT BALLOON DILATION A Balloon catheter 2.5 x 8 mm Trek RX NC was inserted and inflated up to 12.00atm for 8seconds. Final angiography reveals 30-40 % stenosis with JERRY 3 flow. PCI Technique Lesion 2 Percutaneous Coronary Intervention was performed on the proximal left anterior descending artery segment. The lesion stenosis prior to intervention was 80% with JERRY 2 flow. A 6 Fr XB 3.5 Guide Catheter was used to engage the ostium. A 0.014 x 182 cm Choice PT Extra Support Interventional Guidewire was used to cross the lesion. BALLOON DILATION A Balloon catheter 2.5 x 8 mm Trek RX NC was inserted and inflated up to 18.00atm for 8seconds. STENT DEPLOYMENT A drug-eluting stent STENT RESOLUTE SUSAN 2.5 X 08 was inserted and inflated up to 18.00atm for 8seconds. Final angiography reveals 0 % stenosis with JERRY 3 flow. Conclusion Multi Vessel CAD Heavily calcified Coronaries with Diffuse atherosclerotic burden Patent stent in RCA recently placed but proximal to stent focal 805 stenosis. Patent stent in Cx/ OM1 Multiple highgrade stenosis in LAD Proximal and Mid segment with heavily calcified vessel Preserved LV Fx. EF-55%, EDP-15 mmof Hg.No gradient across aortic valve. Successful PTCA with JOANNA of proxmal and Mid LAD. Only 100 cc contrast used. Recommendations Aggressive Medical TherapyCardiac Risk Reduction Program Continue ASA and Brilanta ( pt is resistant to Plavix PRU-302 on last admission) for one year. Monitor renal Fx for 24-48 hours Hydrate for 24-48 hours with po mucomyst Resume ranexa at home If on optimal medical treatment remains symptomatic then consider POCI or RCA, provided renal fx remains stable. Cc; Kesha Contreras / Dory.
[2017-10-06] MEDS: Nitroglycerin 2% Ointment Foilpak UD TOP SCH ×2 (17:51→20:28)
--- NOTE | 2017-10-06 18:52 | CARD ---
APPROVED REPORT Date of service: 10/06/2017 EKG Measurement Heart [id number] MT [id number] <Conclusion> Sinus rhythm with 1st degree AV block ST & T wave abnormality, consider anterolateral ischemia Prolonged QT Abnormal ECG
--- NOTE | 2017-10-06 19:02 | CARD ---
APPROVED REPORT Date of service: 10/05/2017 EKG Measurement Heart [id number] VA 296P [id number] <Conclusion> Sinus rhythm with 1st degree AV block ST & T wave abnormality, consider lateral ischemia Abnormal ECG
[2017-10-06 20:12] LABS: BASO # 0.02 K/mm3 (0.0-2.0); BASO % 0.5 % (0.0-3.0); EOS # 0.2 (0.0-0.7); EOS % 4.4 % (1.5-5.0); GRAN # 2.47 (1.4-6.5); GRAN % 60.4 % (50.0-68.0); HEMOGLOBIN 9.6 g/dL (14.0-18.0); LYMPH % 24.2 % (22.0-35.0); MEAN CELL VOLUME 88.2 fl (80.0-105.0); MEAN CORPUSCULAR HEMOGLOBIN 32.4 pg (25.0-35.0); MEAN CORPUSCULAR HGB CONC 36.8 g/dl (31.0-37.0); MEAN PLATELET VOLUME 11.5 fl (7.0-11.0); MONO # 0.4 (0.1-0.6); MONO % 10.5 % (1.0-6.0); RBC 2.96 10^6/uL (3.5-6.1); RED CELL DISTRIBUTION WIDTH 14.5 % (11.5-14.5); WHITE BLOOD COUNT 4.1 10^3/ul (4.5-11.0)
[2017-10-06 20:23] LABS: CALCIUM 8.6 mg/dL (8.4-10.5)
[2017-10-06] MEDS: Sodium Chloride 0.9% 1,000 ML IV SCH ×2 (20:28→23:23)
[2017-10-06] MEDS: Acetylcysteine 20% Inhal Soln (4ml) PO SCH (20:39)
[2017-10-07] MEDS: Nitroglycerin 2% Ointment Foilpak UD TOP SCH ×4 (00:27→17:24)
[2017-10-07] MEDS: Eptifibatide 0.75 mg/ml 75 MG/100 ML BOTTLE IV SCH ×2 (02:11→04:42)
[2017-10-07] MEDS: Sodium Chloride 0.9% 1,000 ML IV SCH ×2 (04:41→17:37)
[2017-10-07] MEDS: Levothyroxine 88 MCG TAB PO SCH (05:14)
[2017-10-07 06:55] LABS: BASO # 0.02 K/mm3 (0.0-2.0); BASO % 0.4 % (0.0-3.0); EOS # 0.2 (0.0-0.7); EOS % 3.5 % (1.5-5.0); GRAN # 3.19 (1.4-6.5); GRAN % 64.9 % (50.0-68.0); HEMOGLOBIN 9.1 g/dL (14.0-18.0); LYMPH % 20.4 % (22.0-35.0); MEAN CELL VOLUME 87.9 fl (80.0-105.0); MEAN CORPUSCULAR HEMOGLOBIN 32.5 pg (25.0-35.0); MEAN PLATELET VOLUME 11.2 fl (7.0-11.0); MONO # 0.5 (0.1-0.6); MONO % 10.8 % (1.0-6.0); RBC 2.8 10^6/uL (3.5-6.1); RED CELL DISTRIBUTION WIDTH 14.3 % (11.5-14.5); WHITE BLOOD COUNT 4.9 10^3/ul (4.5-11.0)
[2017-10-07 07:10] LABS: ALB/GLOB RATIO 0.9 (1.1-1.8); ALBUMIN 3.1 g/dL (3.0-4.8); CALCIUM 8.4 mg/dL (8.4-10.5)
[2017-10-07] MEDS: Multivitamin Vitamin B Complex (Nephro-Vite) Tab PO SCH (08:19)
[2017-10-07] MEDS: Metoprolol Succinate 50 mg XL Tab PO SCH (08:19)
[2017-10-07] MEDS: Insulin Human NPH/Reg 70/30 Vial(3 ml) SC SCH ×2 (09:33→18:40)
[2017-10-07] MEDS: Acetylcysteine 20% Inhal Soln (4ml) PO SCH ×2 (09:35→17:24)
[2017-10-07] MEDS: Insulin Reg-MEDIUM-Coverage SC SCH ×3 (11:39→22:00)
--- NOTE | 2017-10-07 14:09 | HP ---
CHIEF COMPLAINT: Chest pain, upper chest pressure like discomfort. HISTORY OF PRESENT ILLNESS: This is a 72-year-old man with history of diabetes, COPD, asbestosis, chronic renal failure who had been on dialysis in the past, but is doing well now without dialysis. He has a history of cirrhosis, liver failure, congestive heart failure and coronary artery disease. He developed chest pain during the course of yesterday afternoon, evening and late at night and came to the Emergency Room. He was treated with nitrates and admitted. PAST MEDICAL HISTORY: As outlined above. ALLERGIES: HE HAS NO KNOWN ALLERGIES TO MEDICATIONS. SOCIAL HISTORY: He is a former smoker. He does not drink alcohol any longer although there is a history of heavy use in the distant past. He is with grown children. MEDICATIONS AT HOME: Include Synthroid, insulin, metoprolol, lactulose, Altace, Victoza and sublingual nitroglycerin on a p.r.n. basis. REVIEW OF SYSTEMS: Significant for multitude of complaints related to the diagnoses listed above. PHYSICAL EXAMINATION: GENERAL: Patient was seen in room 276, bed 2 with his and sister (she is a retired registered nurse) at the bedside. He is resting comfortably in bed in no pain and no discomfort. HEAD AND NECK: Unremarkable. Conjunctivae pink. Neck is supple. There is no JVD. No carotid bruits. LUNGS: Show good aeration, right and left. HEART: Regular, not tachycardic. ABDOMEN: Slightly distended. I do not feel a fluid wave or shift. EXTREMITIES: Show only minimal trace edema. IMPRESSION: 1. Acute coronary artery syndrome in a patient with known coronary artery disease. 2. Chronic renal insufficiency. 3. Diabetes. 4. Peripheral vascular disease. 5. Cirrhosis with ascites. 6. Hepatic encephalopathy, chronic, mild, controlled. PLAN: Patient is already admitted, but Cardiology consult has been ordered. I will additionally order some Nitrostat for chest pain and continue the nitroglycerin paste as well as aspirin, his insulin coverage and check with Cardiology regarding our plans. Follow troponins and labs. Berto Reyes MD
--- NOTE | 2017-10-07 14:27 | PN ---
DATE: 10/07/2017 REASON FOR CONSULTATION AND FOLLOWUP: Acute non-STEMI, status post angioplasty with two stents in LAD. SUBJECTIVE: The patient denies any chest pain, shortness of breath, or any palpitation. OBJECTIVE: GENERAL: Not in apparent distress. VITAL SIGNS: Temperature afebrile, heart rate 60, blood pressure /61. HEENT: PERRLA. Extraocular muscles intact. NECK: Supple. No carotid bruit or thyromegaly. CHEST: Clear to auscultation. HEART: S1 and S2 regular. ABDOMEN: Soft. EXTREMITIES: Clubbing and cyanosis negative. LABORATORY DATA: Blood workup as follows: WBC 4.9, hemoglobin , hematocrit 24.6, platelet count 73. Chemistry shows sodium 140, potassium 5, chloride 114, carbon dioxide 17, anion gap of 16, BUN 44, creatinine 2.2. IMPRESSION: Status post [id number] myocardial infarction, coronary artery disease, status post percutaneous transluminal coronary angioplasty of right coronary artery with rotablation four weeks ago at [facility], admitted with recurrent chest pain, unstable angina, status post percutaneous transluminal coronary angioplasty of the two drug eluting stents in left anterior descending artery, chronic renal insufficiency, off dialysis, baseline creatinine 2.4 to 2.3, history of diabetes, hypertension, hyperlipidemia. RECOMMENDATIONS: Continue Integrilin for renal adjusted dose until 09:00 a.m. Continue aspirin. Continue Brilinta. Patient is resistant to Plavix, PRU of 302. Continue Mucomyst for today. Continue IV fluid until tomorrow. Monitor renal function. If remains stable, we will discharge home tomorrow. Discussed with the . We will monitor the renal function. Discussed with Dr. Berto Reyes. We will repeat blood workup, CBC and SMA-7 tomorrow and if patient remains with stable BUN and creatinine, we will discharge him home tomorrow. Follow up in two weeks. If the renal function remains stable and patient remains symptomatic, consider PTCA of RCA in four weeks. Isabella Mcgregor MD cc: Berto Reyes MD
--- NOTE | 2017-10-07 15:20 | CON ---
DATE: 10/07/2017 REASON FOR CONSULTATION: Chronic kidney disease stage IV, chest pain, cardiac catheterization. HISTORY OF PRESENT ILLNESS: A 72-year-old male, known to us from outpatient followup, dialysis in the past. The patient was seen by Cardiology as outpatient on Tuesday. He was thought to be stable. Later that night developed chest pain. Came to the emergency room. Underwent cardiac catheterization and two stents to the LAD yesterday. The patient was given IV fluids and Mucomyst vesna-procedure. Currently, he is seen sitting in bed. He is awake. He is alert. He is comfortable. He denies any chest pain. He denies any shortness of breath. Creatinine today remains unchanged at 2.2. PAST MEDICAL AND SURGICAL HISTORY: NIDDM, hypertension, CAD, cirrhosis of the liver, acute kidney injury and requiring dialysis, chronic kidney disease stage IV, peripheral vascular disease, history of alcohol abuse, anemia of chronic kidney disease. FAMILY HISTORY: Noncontributory. SOCIAL HISTORY: No smoking, no alcohol use, no IV drug abuse. ALLERGIES: NO KNOWN DRUG ALLERGIES. MEDICATIONS: Mucomyst; aspirin; Brilinta 90 b.i.d.; Enulose; Pepcid; normal saline at 75 was given, stopped now; Synthroid; Toprol XL 50; Tylenol. REVIEW OF SYSTEMS: All systems are reviewed, pertinent positives as mentioned in history of presenting illness, rest unremarkable. PHYSICAL EXAMINATION: GENERAL: Elderly male sitting in bed. VITAL SIGNS: Blood pressure 129/61, heart rate 68, respiratory rate 20, temperature 98.6. HEENT: Normocephalic, atraumatic, positive pallor. NECK: Supple, no JVD. LUNGS: Bilateral equal air entry, bilateral equal expansion, no rales. CARDIAC: S1 and S2. Regular rate and rhythm. No murmur, no rub. ABDOMEN: Obese, distended, soft, nontender, bowel sounds present. EXTREMITIES: No lower extremity edema. INTAKE AND OUTPUT: 3616/2600. LABORATORY DATA: WBC 4.9, hemoglobin 9.1, hematocrit 25, platelets 73. Sodium 142, potassium 5, chloride 114, CO2 of 17, BUN 44, creatinine 2.2, glucose 146, calcium 8.4, phosphorus 4.3, magnesium 1.7, albumin 3.1. ASSESSMENT: 1. Stable chronic kidney disease, stage 4. 2. Unstable angina, status post percutaneous transluminal coronary angioplasty and two stents to the left anterior descending artery, postop day #1. 3. Non-insulin dependant diabetes mellitus. 4. Hypertension. 5. Cirrhosis of the liver. 6. Chronic thrombocytopenia. 7. Anemia of chronic kidney disease. 8. Peripheral vascular disease. PLAN: 1. Monitor creatinine. 2. Monitor urine output. 3. Avoid nephrotoxins. 4. Monitor fingersticks and continue insulin coverage. 5. Continue outpatient medications. Selina Garcia MD
--- NOTE | 2017-10-07 17:26 | CARD ---
APPROVED REPORT Date of service: 10/07/2017 EKG Measurement Heart [id number] MO [id number] <Conclusion> Sinus rhythm with 1st degree AV block ST & T wave abnormality, consider anterolateral ischemia Prolonged QT Abnormal ECG
[2017-10-08] MEDS: Nitroglycerin 2% Ointment Foilpak UD TOP SCH ×3 (01:09→12:49)
[2017-10-08] MEDS: Levothyroxine 88 MCG TAB PO SCH (05:35)
[2017-10-08 07:49] LABS: BASO # 0.02 K/mm3 (0.0-2.0); BASO % 0.4 % (0.0-3.0); EOS # 0.2 (0.0-0.7); EOS % 3.4 % (1.5-5.0); GRAN # 3.06 (1.4-6.5); LYMPH % 20.4 % (22.0-35.0); MEAN CELL VOLUME 87.9 fl (80.0-105.0); MEAN CORPUSCULAR HEMOGLOBIN 32.3 pg (25.0-35.0); MEAN CORPUSCULAR HGB CONC 36.7 g/dl (31.0-37.0); MONO # 0.7 (0.1-0.6); MONO % 14.8 % (1.0-6.0); RBC 2.48 10^6/uL (3.5-6.1); RED CELL DISTRIBUTION WIDTH 14.3 % (11.5-14.5)
[2017-10-08 07:52] LABS: CALCIUM 8.3 mg/dL (8.4-10.5)
[2017-10-08] MEDS: Metoprolol Succinate 50 mg XL Tab PO SCH (07:58)
[2017-10-08] MEDS: Multivitamin Vitamin B Complex (Nephro-Vite) Tab PO SCH (07:58)
[2017-10-08] MEDS: Insulin Reg-MEDIUM-Coverage SC SCH ×2 (09:27→12:47)
[2017-10-08] MEDS: Insulin Human NPH/Reg 70/30 Vial(3 ml) SC SCH (09:27)
--- NOTE | 2017-10-08 10:09 | CP.PCM.PN ---
Subjective - Date & Time of Evaluation Date of Evaluation: 10/08/17 Time of Evaluation: 06:30 - Subjective Subjective: Easily awaken, alert, denies chest pain Reason for consultation: Cardiac evaluation of chest pain, History of coronary artery disease, with 6 coronary stents, cardiac ablation, congestive heart failure. Seen and examined by me and Dr. Connors Objective - Vital Signs/Intake and Output Vital Signs (last 24 hours): Temp Pulse Resp BP Pulse Ox 98.3 F 66 20 107/53 L 99 10/08/17 06:00 10/08/17 07:58 10/08/17 06:00 10/08/17 07:58 10/08/17 06:00 Intake and Output: 10/08/17 10/08/17 06:59 18:59 Intake Total 1660 Output Total 800 Balance 860 - Medications Medications: Current Medications Acetaminophen (Tylenol 325mg Tab) 650 mg PO Q6H PRN PRN Reason: Pain, Mild (1-3) Last Admin: 10/08/17 05:32 Dose: 650 mg Aspirin (Aspirin Chewable) 81 mg PO DAILY [facility] Last Admin: 10/08/17 09:26 Dose: 81 mg Famotidine (Pepcid) 20 mg PO DAILY [facility] Last Admin: 10/08/17 09:26 Dose: 20 mg Insulin Human Regular (Humulin R Med) 0 units SC ACHS [facility] PRN Reason: Protocol Last Admin: 10/08/17 09:27 Dose: 3 units Lactulose (Enulose) 10 gm PO DAILY [facility] Last Admin: 10/08/17 09:26 Dose: 10 gm Levothyroxine Sodium (Synthroid) 88 mcg PO 0600 [facility] Last Admin: 10/08/17 05:35 Dose: 88 mcg Metoprolol Succinate (Toprol Xl) 50 mg PO BRK [facility] Last Admin: 10/08/17 07:58 Dose: 50 mg Nitroglycerin (Nitro-Bid 2% Oint) 1 ea TOP Q6 [facility] Last Admin: 10/08/17 05:33 Dose: 1 ea Ticagrelor (Brilinta) 90 mg PO BID [facility] Last Admin: 10/08/17 09:26 Dose: 90 mg Vitamin B Complex/Vit C/Folic Acid (Nephro-Yves) 1 tab PO 0800 [facility] Last Admin: 10/08/17 07:58 Dose: 1 tab - Labs Labs: 10/08/17 07:00 10/08/17 07:00 PT 12.3 SECONDS (9.4-12.5) 10/05/17 23:35 INR 1.08 (0.93-1.08) 10/05/17 23:35 APTT 31.7 Seconds (25.1-36.5) 10/05/17 23:35 - Constitutional Appears: No Acute Distress - Eye Exam Eye Exam: Normal appearance - ENT Exam ENT Exam: Mucous Membranes Moist - Respiratory Exam Respiratory Exam: Clear to Ausculation Bilateral, NORMAL BREATHING PATTERN - Cardiovascular Exam Cardiovascular Exam: +S1, +S2 Additional comments: NSR 1st degree block - GI/Abdominal Exam GI & Abdominal Exam: Soft, Normal Bowel Sounds - Extremities Exam Extremities Exam: Normal Capillary Refill - Neurological Exam Neurological Exam: Alert, Awake, Oriented x3 - Psychiatric Exam Psychiatric exam: Normal Affect - Skin Skin Exam: Intact, Warm Assessment and Plan - Assessment and Plan (Free Text) Assessment: A 72 year old male who came in to the ER due to left sided chest pain non radiating. Patient known to service. He was just in the office for follow up yesterday. History of coronary artery disease, with 6 coronary stents, cardiac ablation, CHF, IDDM, asbestosis, ESRD, DVT, hypertension, hypothyroidism, liver cirrhosis with ascites, and osteomyelitis. Patient was previously admitted [facility] for NSTEMI. Treated medically and cardiac cath deferred initially due to elevated BUN/Creatinine. Chest pain was resolved however he got short of breath on ambulation and on exertion. Dr. Mcgregor decided to perform the cardiac catheterization inspite of concern of renal function. Explained to patient and family the possibility of hemodialysis post cardiac cath. A shiley catheter was inserted in anticipation of hemodialysis if necessary. 08/23/17- ECHO done- left ventricular hyperthropy, LVEF 55%, moderate MR,mild TR 08/22/17 Cardiac cath done- heavily calcified coronaries, Patent stent in circumflex and mid OM1 moderate to severe disease proximal OM1 and mid to distal LAD Occluded mid RCA, (previous PTCA site) unable to take out stent due to calcification and tortousity of vessel Preserved LVEF 55%, EDP 20 mmhg Cath result discussed with patient and family. Option for high risk PTCA and open heart surgery discussed with patient and family, and decision opted for high risk PTCA thus patient was transferred to [facility] 08/29/17. 08/29/17- Successful Rotoablation angioplasty of RCA at [facility] . 10/06/17- Admitting for chest pain, admitting troponin was 0.03. repeat troponin went up to 1.2. Emergent cardiac cath with PTCA with stent to the proximal and mid LAD. Plan: Cardiac status stable post cath/PTCA of LAD Renal status stable Controlled glucose Continue current medications Continue current treatment May discharge and follow up in office Will follow up Plan and treatment discussed with Dr. Connors
--- NOTE | 2017-10-08 10:19 | PN ---
DATE: 10/08/2017 DAILY PROGRESS NOTE SUBJECTIVE: The patient is a 72-year-old male with a history of coronary artery disease, congestive heart failure, emphysema, hypertension, hypothyroidism, cirrhosis, ascites and hepatorenal failure, who was admitted on 10/06/2017 with chest pain. He underwent coronary catheterization and stents were placed in a proximal and mid region of the LAD. Only 100 mL of contrast was used because of the patient's chronic renal failure and the patient tolerated it well. He was receiving Mucomyst orally and IV fluids post procedure. Yesterday's laboratory studies showed the blood urea nitrogen to be 44 and creatinine of 2.2; however, today his hemoglobin has dropped from 9 down to 8. Because of the patient's multiple comorbidities and coronary disease, I will be transfusing 1 unit of packed cells prior to pending discharge, either later on today or tomorrow. Jim Reyes MD
[2017-10-08 13:02] VITALS: TEMP 98
[2017-10-08 13:51] VITALS: PULSE 59; RESP 20
[2017-10-08 15:30] VITALS: BP 120/66
--- NOTE | 2017-10-08 15:35 | PN ---
DATE: 10/08/2017 SUBJECTIVE: The patient is seen sitting in bed. He is awake. He is alert. He is comfortable. He denies any pain. Denies any shortness of breath. His hemoglobin dropped from 9.1 to 8, he is scheduled to receive a transfusion. PHYSICAL EXAMINATION: GENERAL: Elderly male sitting in bed. VITAL SIGNS: Blood pressure 120/54, heart rate 59, respiratory rate 20, temperature 98. HEENT: Normocephalic, atraumatic, positive pallor. NECK: Supple, no JVD. LUNGS: Bilateral equal air entry, bilateral equal expansion. CARDIAC: S1 and S2, regular rate and rhythm, no murmur, no rub. ABDOMEN: Obese, distended, soft, nontender, bowel sounds present. EXTREMITIES: No lower extremity edema. INTAKE AND OUTPUT: 3845/800. LABORATORY DATA: Hemoglobin 8. Sodium 139, potassium 4.9, chloride 114, CO2 16, BUN 44, creatinine 2.2, glucose 106, calcium 8.3, phosphorus 3.8, magnesium 1.8. CURRENT MEDICATIONS: Aspirin, Brilinta, Enulose, insulin, Pepcid, Synthroid, Toprol-XL. ASSESSMENT AND PLAN: 1. Stable chronic kidney disease, stage IV. 2. Status post unstable angina, cardiac cath, percutaneous transluminal coronary angioplasty and stent to left anterior descending. 3. Anemia (?) delusional. 4. Noninsulin-dependent diabetes mellitus. 5. Hypertension. 6. Cirrhosis of the liver. 7. Peripheral vascular disease. PLAN: 1. Agree with 1 unit of blood transfusion. 2. Lasix 40 mg x1 dose. 3. No objection to discharge post transfusion. Selina Garcia MD
--- NOTE | 2017-10-10 08:49 | PN ---
DATE: 10/07/2017 DAILY PROGRESS NOTE SUBJECTIVE: The patient is a 72-year-old male with a history of coronary artery disease, congestive heart failure, emphysema, hypertension, hypothyroidism, cirrhosis, ascites, hepatorenal failure, who was admitted on 10/06/2017 with complaining of chest pain. The patient was taken to the labor/excavator where 2 stents were placed in the LAD proximally and medially. The patient tolerated the procedure well. During the catheterization, it was noted he had an ejection fraction of 65%. EKG is showing regular sinus rhythm with first-degree AV block. When seen today, the patient is awake, alert and oriented. He is in good spirits. He denies any chest pain. His family is at bedside. Although the patient received only 100 mL of contrast during the catheterization, Dr. Mcgregor is being very diligent and still treating him with Mucomyst and IV fluids for another 48 hours for his renal functions. This morning, the blood urea nitrogen is 44, creatinine is 2.2. Hemoglobin and hematocrit are 9.1 and 24.6 respectively. So, the patient will be reevaluated in the morning. Jim Reyes MD MTDJessica
== END 2017-10-08 17:16 | disposition home or self-care (01) | DRG 247 ==
LOC: ED 23:27 → ERH 10-06 02:20 → 2RSO 10-06 03:42
PROVIDERS: ADMIT Internal Medicine; ATTEND Internal Medicine
PROC: 027034Z Dilation of Coronary Artery, One Artery with Drug-eluting Intraluminal Device, Percutaneous Approach (ICD-10-PCS; principal; 2017-10-06)
PROC: 3E033PZ Introduction of Platelet Inhibitor into Peripheral Vein, Percutaneous Approach (ICD-10-PCS; 2017-10-06)
PROC: 4A023N7 Measurement of Cardiac Sampling and Pressure, Left Heart, Percutaneous Approach (ICD-10-PCS; 2017-10-06)
PROC: B2151ZZ Fluoroscopy of Left Heart using Low Osmolar Contrast (ICD-10-PCS; 2017-10-06)
PROC: B2111ZZ Fluoroscopy of Multiple Coronary Arteries using Low Osmolar Contrast (ICD-10-PCS; 2017-10-06)
PROC: 30233N1 Transfusion of Nonautologous Red Blood Cells into Peripheral Vein, Percutaneous Approach (ICD-10-PCS; 2017-10-08)
DX: I21.4 Non-ST elevation (NSTEMI) myocardial infarction (principal); I13.2 Hypertensive heart and chronic kidney disease with heart failure and with stage 5 chronic kidney disease, or end stage renal disease; N18.4 Chronic kidney disease, stage 4 (severe); R18.8 Other ascites; I25.110 Atherosclerotic heart disease of native coronary artery with unstable angina pectoris; I50.9 Heart failure, unspecified; I44.0 Atrioventricular block, first degree; E03.9 Hypothyroidism, unspecified; I48.91 Unspecified atrial fibrillation; E11.22 Type 2 diabetes mellitus with diabetic chronic kidney disease; E11.51 Type 2 diabetes mellitus with diabetic peripheral angiopathy without gangrene; K72.10 Chronic hepatic failure without coma; K74.60 Unspecified cirrhosis of liver; D63.1 Anemia in chronic kidney disease; H35.30 Unspecified macular degeneration; D69.6 Thrombocytopenia, unspecified; J43.9 Emphysema, unspecified; Z96.653 Presence of artificial knee joint, bilateral; E78.5 Hyperlipidemia, unspecified; Z79.4 Long term (current) use of insulin; Z95.5 Presence of coronary angioplasty implant and graft; Z99.2 Dependence on renal dialysis; Z87.09 Personal history of other diseases of the respiratory system; Z87.891 Personal history of nicotine dependence

== ENCOUNTER 2017-10-24 07:20 | Day surgery (SDC) | payer MEDICARE, OTHER ==
[2017-10-20 13:13] VITALS: BMI 27.1
--- NOTE | 2017-10-22 02:42 | HP ---
Copied To: Isabella Mcgregor MD Attending MD: Isabella Mcgregor MD REASON FOR ADMISSION: Left heart cath, possible angioplasty, unstable angina, history of coronary artery disease, status post stent, history of end-stage renal disease. BRIEF CLINICAL HISTORY: This is a 72-year-old male with extensive history of coronary artery disease, history of multiple stents. Recently, the patient had rotablation of RCA, history of end-stage renal disease, on dialysis, now off dialysis, history of recent intervention on 10/06/2017 for unstable angina and non-ST elevation myocardial infarction. Yesterday, the patient was seen in the office complaining of recurrent chest pain. The patient had a focal critical disease in RCA where the patient had rotablation done, 80% stenosis. So, the patient admitted electively for progressively worsening angina and crescendo angina for possible PTCA of RCA. PAST MEDICAL HISTORY: Significant for extensive history of coronary artery disease, status post multiple stents; diabetes; hypertension; hyperlipidemia; end-stage renal disease, on dialysis, now off dialysis; history of rotablation of RCA at [facility] and recently the patient had PTCA of LAD on 10/06/2017 with mid LAD and proximal LAD, two stents, now admitted with unstable angina. SOCIAL HISTORY: Denies any smoking. Denies any history of alcohol abuse. CURRENT MEDICATIONS: The patient is taking vitamin B complex, Brilinta, Ranexa, ranitidine, ramipril, nitroglycerin, metoprolol, levothyroxine, lactulose. The patient's PRU test revealed the patient is resistant to Plavix, so the patient is on Brilinta. REVIEW OF SYSTEMS: As per HPI. PHYSICAL EXAMINATION: VITAL SIGNS: As follows; height of the patient is 5 feet 8 inches, weight of the patient is 195 pounds, body mass index 30 kg/m2. VITAL SIGNS: Temperature afebrile, heart rate 80, blood pressure 120/80. HEENT: PERRLA, intact. NECK: Supple. No carotid bruits or thyromegaly. CHEST: Clear to auscultation. HEART: S1 and S2, regular. ABDOMEN: Soft. EXTREMITIES: Clubbing and cyanosis negative. LABORATORY DATA: Blood workup as of 10/08/2017, WBC 5, hemoglobin 8, hematocrit 21.8, platelet count 73. Chemistry showed sodium 139, potassium 4.9, chloride 114, carbon dioxide 16, anion gap 14, BUN 44, creatinine 2.2. IMPRESSION: Crescendo angina, worsening chest pain on minimal activity, history of coronary artery disease, history of multiple stents, history of recent coronary intervention on 10/06/2017 with percutaneous transluminal coronary angioplasty of proximal and distal left anterior descending. RECOMMENDATIONS: PTCA of RCA. Further recommendation will be done after the angioplasty. We will follow with you. We will review the blood work if available. Further recommendation after the cardiac catheterization. We will follow with you. Thank you, Dr. Reyes, for providing us the opportunity in taking care of the patient, Andrew Tanner. Isabella Mcgregor MD
[2017-10-24 08:02] LABS: BASO # 0.05 K/mm3 (0.0-2.0); EOS # 0.2 (0.0-0.7); GRAN # 3.1 (1.4-6.5); GRAN % 62.2 % (50.0-68.0); HEMOGLOBIN 10.4 g/dL (14.0-18.0); LYMPH % 20.7 % (22.0-35.0); MEAN CORPUSCULAR HEMOGLOBIN 31.9 pg (25.0-35.0); MEAN CORPUSCULAR HGB CONC 36.2 g/dl (31.0-37.0); MEAN PLATELET VOLUME 12.1 fl (7.0-11.0); MONO # 0.7 (0.1-0.6); MONO % 13.1 % (1.0-6.0); RBC 3.26 10^6/uL (3.5-6.1); RED CELL DISTRIBUTION WIDTH 14.8 % (11.5-14.5)
[2017-10-24 08:12] LABS: INR 1.05; PARTIAL THROMBOPLASTIN TIME 31.1 Seconds (25.1-36.5); PROTHROMBIN TIME 12.1 SECONDS (9.4-12.5)
[2017-10-24 08:13] LABS: CALCIUM 9.6 mg/dL (8.4-10.5)
[2017-10-24] MEDS ORDERED: Iohexol 350mgl/ml 50 ML ONE (11:20)
[2017-10-24] MEDS ORDERED: Lidocaine PF 2% (5 ml) Inj (For Cardiac Arrhy) ONE (11:20)
[2017-10-24] MEDS ORDERED: Iodixanol 320 MG/ML 200 ML BOTTLE IV ONE (11:20)
[2017-10-24] MEDS ORDERED: Midazolam 2 MG/2 ML VIAL ONE ×2 (11:43→12:02)
[2017-10-24] MEDS ORDERED: Eptifibatide 20 mg/10mL Inj IVP ONE (11:59)
--- NOTE | 2017-10-24 13:56 | CPOSTOP ---
Copied To: Isablela Mcgregor MD Attending MD: Isabella Mcgregor MD DATE: 10/24/2017 CARDIOVASCULAR LAB POSTPROCEDURE NOTE DICTATING PHYSICIAN: Isabella Mcgregor MD HOURLY TEAM MEMBERS: JUAN PABLO Urbina. TYPE OF ANESTHESIA USED: Moderate conscious sedation, a total 2 mg of Versed, 100 of fentanyl given. PRE-PROCEDURE DIAGNOSIS: Unstable angina, crescendo angina, worsening since last week. PROCEDURE PERFORMED: Right coronary angiogram and stenting of the right coronary artery complex. FINDINGS: Critical disease in RCA proximal to the stent 80%, distal to the stent 80%, in the stent 90% stenosis. FINAL DIAGNOSIS: Single-vessel right coronary artery disease. POST PROCEDURE CONDITION: The patient's condition is stable. VASCULAR ACCESS SITE: Right femoral artery. CLOSURE DEVICE APPLIED: Mynx. TOTAL RADIATION DOSE: 88833.7 milligray unit. TOTAL FLUORO TIME: 12.7 minutes. TOTAL CONTRAST USED: 30 mL. Isabella Mcgregor MD
--- NOTE | 2017-10-24 16:59 | CARD ---
APPROVED REPORT Date of service: 10/24/2017 Procedure(s) performed: Selective Right Coronary Angiography PTCA with Stenting of Proximal RCA PTCA with Balloon Angioplasty of Mid RCA for Instet Restenosis. PTCA with Stenting of distal RCA with JOANNA HISTORY The patient is a 72 year-old male with a history of : most recent EF: 52.4%. (EF Method: Echocardiogram), previous CHF, renal failure without dialysis, peripheral vascular disease, diabetes mellitus with insulin treatment , previous diagnostic cath, tobacco history() : The patient is a former smoker , previous PCI (The PCI date was 10/07/2017), hypertension , was seen in office with recurrent angina, new onset. INDICATION The indication(s) include : unstable angina . CASE TECHNIQUE The patient was brought electively to the Cardiac Catheterization Laboratory in a fasting state and was prepped and draped in a sterile manner. The right femoral groin was infiltrated with 2% Lidocaine subcutaneous anesthesia. A 6 Fr x 11 cm Nereyda sheath was inserted into the right femoral artery without difficulty. Coronary angiography was performed using coronary diagnostic catheters. The right coronary system was accessed and visualized with a Guider,6 Fr JR 3.5 catheter. Closure device was deployed with a 6 Fr / 7 Fr MynxGrip without any complications. The patient tolerated the procedure well and there were no complications associated with the procedure. Vessel Analysis The patient's coronary anatomy is right dominant. The right coronary artery is a large size vessel with diffuse calcification noted throughout this vessel and with significant stenosis. There is a 80% stenosis in the proximal segment. Mid RCA instent 90%, and distal RCA has80% stenosis The right posterior descending artery is a medium size vessel with diffuse calcification noted throughout this vessel and without significant stenosis. Left Ventricle No LV gram and No left coronaries injection done B/c of renal insufficiency, minimal quantity of contrast used. PCI Technique Lesion Anticoagulation was achieved with Heparin an Integrellin Bollus. Percutaneous coronary intervention was performed on the proximal right coronary artery. The lesion stenosis prior to intervention was 80% with JERRY 2 flow. A 6 Fr JR 3.5 Guide Catheter was used to engage the ostium. A Luge 182 Interventional Guidewire was used to cross the lesion. BALLOON DILATION A Balloon catheter 2.5 x 8 mm Trek RX was inserted and inflated up to dudley for seconds. STENT DEPLOYMENT A drug-eluting stent STENT RESOLUTE SUSAN 2.75 X 08 was inserted and inflated up to 12.00atm for 20seconds. Final angiography reveals 0 % stenosis with JERRY 3 flow. PCI Technique Lesion 2 Percutaneous Coronary Intervention was performed on the mid right coronary artery has instent restenosis. The lesion stenosis prior to intervention was 90% with JERRY 2 flow. A 6 Fr JR 3.5 Guide Catheter was used to engage the ostium. A Luge 182 Interventional Guidewire was used to cross the lesion. BALLOON DILATION A Balloon catheter 3.0 x 12 mm Trek RX NC was inserted and inflated up to 16.00atm for 30seconds. Final angiography reveals 10-20 % stenosis with JERRY 3 flow. PCI Technique Lesion 3 Percutaneous Coronary Intervention was performed on the Dstal right coronary artery. The lesion stenosis prior to intervention was 80% with JERRY 2 flow. A 6 Fr JR 3.5 and guide liner Guide Catheter was used to engage the ostium. A Luge 182 Interventional Guidewire was used to cross the lesion. BALLOON DILATION A Balloon catheter 2.5 x 8 mm Trek RX was inserted and inflated up to 14.00atm for 10seconds. STENT DEPLOYMENT A drug-eluting stent STENT RESOLUTE SUSAN 2.75 X12 was inserted and inflated up to 14.00atm for 10seconds. Final angiography reveals 0 % stenosis with JERRY 3 flow. Conclusion Proximal RCA has 80%, Mid RCA has 90% Instent restenosis, and distal RCA has 80% stenosis. Successful PTCA with JOANNA of Proxmal and distal RCA, and POBA of Mid RCA. Total 30 cc Contrast used. Recommendations Cardiac Rehabilitation Referral Aggressive Medical TherapyCardiac Risk Reduction Program Weight Loss Reduction Program Continue ASA and Brilinta. Hydrate over night , Monitor Renal FX. CC; DRs. Kesha Reyes,/ Dory.
[2017-10-24 17:03] LABS: BASO # 0.03 K/mm3 (0.0-2.0); BASO % 0.9 % (0.0-3.0); EOS # 0.1 (0.0-0.7); EOS % 3.2 % (1.5-5.0); GRAN # 1.92 (1.4-6.5); GRAN % 56.5 % (50.0-68.0); HEMOGLOBIN 10.5 g/dL (14.0-18.0); LYMPH % 28.8 % (22.0-35.0); MEAN CELL VOLUME 88.3 fl (80.0-105.0); MEAN CORPUSCULAR HEMOGLOBIN 32.3 pg (25.0-35.0); MEAN CORPUSCULAR HGB CONC 36.6 g/dl (31.0-37.0); MEAN PLATELET VOLUME 11.6 fl (7.0-11.0); MONO # 0.4 (0.1-0.6); MONO % 10.6 % (1.0-6.0); RBC 3.25 10^6/uL (3.5-6.1); RED CELL DISTRIBUTION WIDTH 14.6 % (11.5-14.5); WHITE BLOOD COUNT 3.4 10^3/ul (4.5-11.0)
[2017-10-24 17:15] LABS: CALCIUM 9.1 mg/dL (8.4-10.5)
--- NOTE | 2017-10-24 17:25 | CARD ---
APPROVED REPORT Date of service: 10/24/2017 EKG Measurement Heart [id number] <Conclusion> Undetermined rhythm Inferior infarct, age undetermined Abnormal ECG
[2017-10-24] MEDS: Insulin Reg-LOW-Coverage SC SCH ×2 (17:59→21:26)
[2017-10-24] MEDS: Acetylcysteine 20% Inhal Soln (4ml) PO SCH (18:00)
[2017-10-24] MEDS: Insulin Lispro (humaLOG) MIX 75/25(10 ml) SC SCH (18:22)
[2017-10-24] MEDS: Sodium Chloride 0.9% 1,000 ML IV SCH (18:36)
[2017-10-25] MEDS: Sodium Chloride 0.9% 1,000 ML IV SCH (03:00)
[2017-10-25 06:23] VITALS: PULSE 67; RESP 20; TEMP 97.9; O2SAT 100
[2017-10-25 07:11] LABS: BASO # 0.03 K/mm3 (0.0-2.0); BASO % 0.6 % (0.0-3.0); EOS # 0.2 (0.0-0.7); EOS % 3.2 % (1.5-5.0); GRAN # 2.68 (1.4-6.5); GRAN % 57.2 % (50.0-68.0); HEMOGLOBIN 9.2 g/dL (14.0-18.0); LYMPH # 1.1 (1.2-3.4); MEAN CELL VOLUME 86.9 fl (80.0-105.0); MEAN CORPUSCULAR HEMOGLOBIN 31.8 pg (25.0-35.0); MEAN CORPUSCULAR HGB CONC 36.7 g/dl (31.0-37.0); MEAN PLATELET VOLUME 11.9 fl (7.0-11.0); MONO # 0.8 (0.1-0.6); RBC 2.89 10^6/uL (3.5-6.1); RED CELL DISTRIBUTION WIDTH 14.7 % (11.5-14.5); WHITE BLOOD COUNT 4.7 10^3/ul (4.5-11.0)
[2017-10-25 07:26] LABS: CALCIUM 8.9 mg/dL (8.4-10.5)
[2017-10-25] MEDS: Insulin Reg-LOW-Coverage SC SCH (09:21)
[2017-10-25] MEDS: Insulin Lispro (humaLOG) MIX 75/25(10 ml) SC SCH (09:21)
[2017-10-25] MEDS: Acetylcysteine 20% Inhal Soln (4ml) PO SCH (09:31)
[2017-10-25 09:33] VITALS: BP 114/42
[2017-10-25] MEDS ORDERED: Metoprolol Succinate 25 mg XL Tab PO SCH (10:00)
[2017-10-25] MEDS ORDERED: Levothyroxine 88 MCG TAB PO SCH (10:00)
[2017-10-25] MEDS ORDERED: Metoprolol Succinate 50 mg XL Tab PO SCH (10:00)
[2017-10-25] MEDS ORDERED: Multivitamin Therapeutic Tab PO SCH (10:00)
--- NOTE | 2017-10-25 18:39 | DS ---
Copied To: Isabella Mcgregor MD Attending MD: Isabella Mcgregor MD. 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 Brooks plan was to stage angioplasty of RCA in 4 views in the patient because in view of symptomatology, the patient admitted yesterday for PTCA and cath, the patient underwent 2-way stent in the RCA, small stents proximal and distal to the previous stent and plain balloon angioplasty for in-stent restenosis of mid RCA. Rest of hospital course remained uneventful. PHYSICAL EXAMINATION: VITAL SIGNS: Temperature afebrile, heart rate 67, blood pressure 114/42. HEENT: PERRLA. Extraocular muscles intact. NECK: Supple. No carotid bruit or thyromegaly. CHEST: Clear to auscultation. HEART: S1 and S2, regular. ABDOMEN: Soft. EXTREMITIES: Clubbing and cyanosis negative. LABORATORY DATA: Blood workup as follows: WBC 4.7, hemoglobin 9.1, hematocrit 25.1, and platelet count 77. Chemistry shows sodium 140, potassium 5.2, chloride 111, carbon dioxide 17, anion gap of 17. BUN 61, creatinine 2.6. IMPRESSION: Chronic kidney disease stage III, history of coronary artery disease, unstable angina, diabetes, hypertension, hyperlipidemia, multiple stents in the past. RECOMMENDATIONS: Discharge home. Continue ramipril 1.25 mg daily, continue ticagrelor that is Brilinta, continue aspirin, continue insulin, continue levothyroxine, and decrease the metoprolol succinate to 25 mg because the patient becomes bradycardic and Mobitz type II. Discussed with the and discussed with the sister who is a retired nurse. Follow up BMP in 1 week is recommended. Thank you Dr. Reyes, for providing us the opportunity in taking care of the patient, Andrew Tanner. Isabella Mcgregor MD [facility] # [id number]
== END 2017-10-25 10:30 | disposition home or self-care (01) ==
LOC: CATH 07:20 → 2A 13:05 → 2RSO 13:05 → CATH 10-25 10:30
PROVIDERS: ATTEND Internal Medicine Cardiovascular Disease
DX: I25.110 Atherosclerotic heart disease of native coronary artery with unstable angina pectoris (principal); T82.858A Stenosis of other vascular prosthetic devices, implants and grafts, initial encounter; I50.9 Heart failure, unspecified; I13.2 Hypertensive heart and chronic kidney disease with heart failure and with stage 5 chronic kidney disease, or end stage renal disease; E11.22 Type 2 diabetes mellitus with diabetic chronic kidney disease; N18.6 End stage renal disease; E11.51 Type 2 diabetes mellitus with diabetic peripheral angiopathy without gangrene; E78.5 Hyperlipidemia, unspecified; I25.2 Old myocardial infarction; Z79.4 Long term (current) use of insulin; Z87.891 Personal history of nicotine dependence
CPT/HCPCS: 36415; 80048; 80061; 82948; 85025; 85175; 85610; 85730; 86850; 86900; 93005; 93454; 99152; 99153; C1725 ×2; C1760; C1769 ×2; C1874 ×2; C1887 ×2; C2629; C9600; J1327; J1644 ×2; J1940; J2250; J3010; J7030; Q9966; Q9967

== ENCOUNTER 2018-01-25 00:43 | Observation (INO) | payer MEDICARE, OTHER ==
[2018-01-25 00:44] VITALS: BMI 27.1
--- NOTE | 2018-01-25 01:05 | ED PDOC ---
Arrival/HPI - General Chief Complaint: Chest Pain Time Seen by Provider: 01/25/18 00:54 Historian: Patient - History of Present Illness Narrative History of Present Illness (Text): 01/25/18 01:04 Andrew Tanner is a 72 year old male, whose past medical history includes CAD with multiple coronary stents (last one in September 2017), cardiac ablation, CHF, IDDM, asbestosis, ESRD, DVT, hypertension, hypothyroidism, liver cirrhosis with ascites, and osteomyelitis, who presents to the emergency department accompanied by complaining of chest pain. Patient states he was sitting on his bed watching TV when he developed mid-sternal chest pain with shortness of breath. Patient was given 2 Nitroglycerin tablets by his with some improvement, but states he is still experiencing chest pressure. Patient denies any fever, chills , nausea, vomiting, diarrhea, urinary symptoms, back pain, neck pain, headache, dizziness, or any other complaints. Dry Drug Worker: Dr. Mcgregor Time/Duration: Prior to Arrival Symptom Onset: Gradual Symptom Course: Unchanged Quality: Tightness Activities at Onset: Light Context: Home Past Medical History - Provider Review Nursing Documentation Reviewed: Yes - Infectious Disease Hx of Infectious Diseases: None - Cardiac Hx Pacemaker: No - Pulmonary Hx Respiratory Disorders: Yes Hx Chronic Obstructive Pulmonary Disease (COPD): Yes - Neurological Hx Paralysis: No - HEENT Hx HEENT Disorder: Yes (glasses) - Renal Hx Renal Disorder: Yes Hx Renal Failure: Yes (Pt not on dialysis since may 2017) - Endocrine/Metabolic Hx Endocrine Disorders: Yes Hx Diabetes Mellitus Type 1: Yes Hx Hypothyroidism: Yes - Hematological/Oncological Hx Blood Transfusions: Yes Hx Blood Transfusion Reaction: No - Integumentary Hx Dermatological Disorder: No - Musculoskeletal/Rheumatological Hx Musculoskeletal Disorders: Yes - Gastrointestinal Hx Gastrointestinal Disorders: No - Genitourinary/Gynecological Hx Genitourinary Disorders: No - Psychiatric Hx Emotional Abuse: No Hx Physical Abuse: No Hx Substance Use: No - Surgical History Hx Cardiac Catheterization: Yes Hx Cholecystectomy: Yes Hx Coronary Stent: Yes (6 stents) Hx Musculoskeletal Surgery: Yes (B/L total knee replacement) - Anesthesia Hx Anesthesia Reactions: No Hx Malignant Hyperthermia: No - Suicidal Assessment Feels Threatened In Home Enviroment: No Family/Social History - Physician Review Nursing Documentation Reviewed: Yes Family/Social History: Unknown Family HX Smoking Status: Never Smoked Hx Alcohol Use: No Hx Substance Use: No Allergies/Home Meds Allergies/Adverse Reactions: Allergies No Known Allergies Allergy (Verified 10/20/17 13:13) Home Medications: Home Meds Medication Instructions Recorded Confirmed Metoprolol Succinate XL [Toprol XL] 25 mg PO DAILY 02/17/17 01/25/18 Insulin Aspart Prot/Insuln Asp 25 unit SC 0700,1700 03/12/17 01/25/18 [Novolog Mix 70-30 Vial] Lactulose [Generlac] 15 ml PO DAILY 04/19/17 10/24/17 Ramipril [Altace] 1.25 mg PO DAILY 04/19/17 01/25/18 Liraglutide [Victoza 3-Anuel] 1.2 mg SC QPM 07/21/17 01/25/18 Nitroglycerin [Nitrostat] 0.4 mg SL PRN PRN 07/21/17 01/25/18 Vitamin B Complex [Super B-50 1 tab PO DAILY 07/21/17 01/25/18 Complex] Ticagrelor [Brilinta] 90 mg PO BID 10/06/17 01/25/18 Levothyroxine [Synthroid] 88 mcg PO DAILY 10/20/17 01/25/18 Ranitidine HCl [Acid House Wirer Helper 150] 150 mg PO BID 10/20/17 01/25/18 Ranolazine [Ranexa] 500 mg PO BID 10/20/17 01/25/18 Cefadroxil [Duricef] 500 mg PO BID 01/25/18 01/25/18 Review of Systems - Physician Review All systems were reviewed & negative as marked: Yes - Review of Systems Constitutional: Normal. absent: Fevers Eyes: Normal ENT: Normal Respiratory: SOB Cardiovascular: Chest Pain Gastrointestinal: Normal. absent: Abdominal Pain, Diarrhea, Nausea, Vomiting Genitourinary Male: Normal. absent: Dysuria, Frequency, Hematuria, Urinary Output Changes Musculoskeletal: Normal. absent: Back Pain, Neck Pain Skin: Normal. absent: Rash Neurological: Normal. absent: Headache, Dizziness Endocrine: Normal Hemo/Lymphatic: Normal Psychiatric: Normal Physical Exam Vital Signs Reviewed: Yes Vital Signs Temp Pulse Pulse Resp BP Pulse Ox 01/25/18 00:58 74 01/25/18 00:55 98.1 F 80 18 168/82 H 100 Temperature: Afebrile Blood Pressure: Hypertensive Pulse: Regular Respiratory Rate: Normal Appearance: Positive for: Well-Appearing, Non-Toxic, Comfortable Pain Distress: None Mental Status: Positive for: Alert and Oriented X 3 - Systems Exam Head: Present: Atraumatic, Normocephalic Pupils: Present: PERRL Extroacular Muscles: Present: EOMI Conjunctiva: Present: Normal Mouth: Present: Moist Mucous Membranes Neck: Present: Normal Range of Motion. No: Meningeal Signs, MIDLINE TENDERNESS, Paraspinal Tenderness Respiratory/Chest: Present: Clear to Auscultation, Good Air Exchange. No: Respiratory Distress, Accessory Muscle Use Cardiovascular: Present: Regular Rate and Rhythm, Normal S1, S2. No: Murmurs Abdomen: No: Tenderness, Distention, Peritoneal Signs Back: Present: Normal Inspection. No: CVA Tenderness, Midline Tenderness, Paraspinal Tenderness Upper Extremity: Present: Normal Inspection. No: Cyanosis, Edema Lower Extremity: Present: Normal Inspection. No: Edema Neurological: Present: GCS=15, CN II-XII Intact, Speech Normal Skin: Present: Warm, Dry, Normal Color. No: Rashes Psychiatric: Present: Alert, Oriented x 3, Normal Insight, Normal Concentration Medical Decision Making ED Course and Treatment: 01/25/18 01:04 Impression: 72 year old male complaining of mid-sternal chest pain and shortness of breath. Plan: -- EKG -- Chest X-ray -- Labs, cardiac enzymes, BNP -- Aspirin -- Morphine -- Nitropaste -- Reassess and disposition Prior Visits: Notes and results from previous visits were reviewed. Progress Notes: Reviewed EKG, NSR at 84 bpm. 1st degree AV block. Lateral ST/T changes. 01/25/18 03:19 Chest X-ray reviewed, shows mildly increased pulmonary vascular markings. 01/25/18 04:[address] Reyes, who is aware and agrees with plan. Accepts pt in to his service. Pt will go to Telemetry observation for chest pain and CHF. Requests Dr. Mcgregor on consult. - Lab Interpretations I have reviewed the lab results: Yes - RAD Interpretation Fur Finisher: ED Physician - EKG Interpretation Interpreted by ED Physician: Yes Type: 12 lead EKG - Scribe Statement The provider has reviewed the documentation as recorded by the Serjio Recio Provider Scribe Attestation: All medical record entries made by the Scribe were at my direction and personally dictated by me. I have reviewed the chart and agree that the record accurately reflects my personal performance of the history, physical exam, medical decision making, and the department course for this patient. I have also personally directed, reviewed, and agree with the discharge instructions and disposition. Disposition/Present on Arrival - Present on Arrival Any Indicators Present on Arrival: No History of DVT/PE: Yes History of Uncontrolled Diabetes: Yes Urinary Catheter: No History of Decub. Ulcer: No History Surgical Site Infection Following: None - Disposition Have Diagnosis and Disposition been Completed?: Yes Diagnosis: Chest pain, CHF (congestive heart failure) Disposition Time: 04:50 Patient Plan: Observation Condition: STABLE Discharge Instructions (ExitCare): Chest Pain (ED), Heart Failure (ED) Referrals: Jim Reyes MD [Primary Care Provider] - Follow up with primary Forms: [facility] (Slovenian)
[2018-01-25] MEDS ORDERED: Morphine 2 mg/ml ISec IVP STA (01:08)
[2018-01-25] MEDS ORDERED: Nitroglycerin 2% Ointment Foilpak UD TOP STA (01:08)
[2018-01-25 01:13] LABS: HEMOGLOBIN 10.4 g/dL (14.0-18.0); MEAN CORPUSCULAR HEMOGLOBIN 32.7 pg (25.0-35.0); MEAN CORPUSCULAR HGB CONC 36.2 g/dl (31.0-37.0); MEAN PLATELET VOLUME 10.8 fl (7.0-11.0); RBC 3.18 10^6/uL (3.5-6.1); RED CELL DISTRIBUTION WIDTH 15.3 % (11.5-14.5); WHITE BLOOD COUNT 5.6 10^3/uL (4.5-11.0)
[2018-01-25 01:21] LABS: MEAN CELL VOLUME 90.3 fl (80.0-105.0)
[2018-01-25 01:23] LABS: CALCIUM 9.1 mg/dL (8.4-10.5)
[2018-01-25 01:30] LABS: INR 1.08; PARTIAL THROMBOPLASTIN TIME 29.9 Seconds (25.1-36.5); PROTHROMBIN TIME 12.3 SECONDS (9.4-12.5)
[2018-01-25 01:43] LABS: ALBUMIN 3.8 g/dL (3.0-4.8); TROPONIN I 0.04 ng/mL
[2018-01-25] MEDS ORDERED: Sod Polystyrene Sulf 15 gm/60 ml Susp PO STA (04:49)
[2018-01-25 06:48] VITALS: O2SAT 100
[2018-01-25 08:58] LABS: BASO # 0.02 K/mm3 (0.0-2.0); BASO % 0.4 % (0.0-3.0); EOS # 0.2 (0.0-0.7); GRAN # 2.94 (1.4-6.5); GRAN % 58.8 % (50.0-68.0); HEMOGLOBIN 10.1 g/dL (14.0-18.0); LYMPH # 1.2 (1.2-3.4); LYMPH % 24.6 % (22.0-35.0); MEAN CELL VOLUME 90.3 fl (80.0-105.0); MEAN CORPUSCULAR HEMOGLOBIN 32.6 pg (25.0-35.0); MEAN CORPUSCULAR HGB CONC 36.1 g/dl (31.0-37.0); MEAN PLATELET VOLUME 11.1 fl (7.0-11.0); MONO # 0.7 (0.1-0.6); MONO % 13.2 % (1.0-6.0); RBC 3.1 10^6/uL (3.5-6.1); RED CELL DISTRIBUTION WIDTH 15.4 % (11.5-14.5)
[2018-01-25 09:02] LABS: ALBUMIN 3.8 g/dL (3.0-4.8); CALCIUM 9.3 mg/dL (8.4-10.5)
[2018-01-25] MEDS ORDERED: RANITIDINE HCL 150 MG PO SCH (10:00)
[2018-01-25] MEDS ORDERED: Non Formulary Medication (Ranolazine [Ranexa] 500 MG) PO SCH ×2 (10:00)
--- NOTE | 2018-01-25 10:00 | RAD ---
Date of service: 01/25/2018 HISTORY: fever COMPARISON: 10/05/2017 FINDINGS: LUNGS: No active pulmonary disease. PLEURA: Calcified pleural plaques. CARDIOVASCULAR: Minimal aortic calcification Mild cardiomegaly no pulmonary vascular congestion. OSSEOUS STRUCTURES: No significant abnormalities. VISUALIZED UPPER ABDOMEN: Normal. OTHER FINDINGS: None. IMPRESSION: No active disease.
[2018-01-25 10:23] LABS: TROPONIN I 0.89 ng/mL
[2018-01-25] MEDS: Levothyroxine 88 MCG TAB PO SCH (11:03)
[2018-01-25] MEDS: Nitroglycerin 2% Ointment Foilpak UD TOP SCH ×3 (11:13→21:38)
[2018-01-25] MEDS: Enoxaparin 80 mg Syringe SC SCH (11:13)
[2018-01-25] MEDS: Insulin Reg-LOW-Coverage SC SCH ×3 (12:05→17:44)
--- NOTE | 2018-01-25 12:42 | CARD ---
APPROVED REPORT Date of service: 01/25/2018 EKG Measurement Heart [id number] <Conclusion> Sinus rhythm with marked 1st degree AV block ST & T wave abnormality, consider lateral ischemia Abnormal ECG
--- NOTE | 2018-01-25 12:53 | CON ---
DATE: 01/25/2018 CONSULT SERVICE: Cardiology. REASON FOR THE CONSULTATION: Cardiac evaluation, admitted with a chest pain and difficulty in breathing, congestive heart failure, history of coronary artery disease. BRIEF CLINICAL HISTORY: This is a 72-year-old male with past medical history significant for coronary artery disease status post multiple stent, last stent in September in RCA, history of cardiac ablation, history of CHF, asbestosis, insulin dependent diabetes, history of chronic kidney disease at one point was off dialysis, history of DVT, hypertension, hypothyroidism, history of liver cirrhosis, ascites, history of osteomyelitis, came in yesterday with complaint of chest pain, started 2-3 days ago. Patient used to take nitro and p.r.n. in addition to Ranexa. Yesterday, patient after dinner was going up feel little tightness in the chest, took subinguinal nitro, got better and again it happened, so gave another nitro and then associated with a shortness of breath, came to the emergency room. Denies any chest pain now. PAST MEDICAL HISTORY: Significant for extensive coronary artery disease status post multiple stents, diabetes, hypertension, hyperlipidemia, end-stage renal disease on dialysis now off dialysis, history of rotablation of RCA at [facility] recently with PTCA and history of recent PTCA of LAD on 10/06/2017 and then straight PTCA of RCA of 10/20/2017. SOCIAL HISTORY: Denies any smoking. Denies any history of alcohol abuse. CURRENT MEDICATIONS: Patient is taking at home vitamin B complex, Brilinta, Ranexa, ranitidine, ramipril, nitroglycerin, metoprolol, Victoza, levothyroxine, lactulose, insulin, Duricef and aspirin. Recent cardiac workup as follows; patient had a last catheterization done 10/24/2017 whereas patient had a stenting of the proximal RCA, plain balloon angioplasty of the mid RCA for in-stent stenosis and stent of the distal RCA with a JOANNA date 10/24/2017. Prior to that, patient had cardiac catheterization on 10/06/2017 where the stent of the mid LAD, drug eluting stent was done and a stenting of the proximal LAD was done and prior to that, patient had rotablation of RCA and PTCA was done 08/31/2017 because of heavily calcified artery, history of CKD was on dialysis at that time, then patient's off dialysis, but history of hyperkalemia on maintenance dose of lactulose. Last cardiac catheterization, ejection fraction 55%, end diastolic pressure was 15. Last echo 08/23/2017 that revealed ejection fraction 55%, mild valvular aortic stenosis, mild valvular aortic stenosis, mitral regurgitation [id number] and there is a mild tricuspid regurgitation, RV systolic pressure 57. REVIEW OF SYSTEMS: As per HPI. Patient had also PRU test was done at one point and found to be resistant to Plavix so patient was started on Brilinta. Review of systems as per HPI and negative except per HPI. PHYSICAL EXAMINATION VITAL SIGNS: Height of the patient is 5 feet 8 inches, weight of the patient 180 pounds, body mass index 27.4 kg/m2. Rest of the vitals: Temperature afebrile, heart rate 77, blood pressure 116/63. HEENT: PERRLA. Extraocular muscles intact. NECK: Supple. No carotid bruits or thyromegaly. CHEST: Clear to auscultation. HEART: S1 and S2 regular. ABDOMEN: Soft. EXTREMITIES: Clubbing and cyanosis negative. LABORATORY DATA: Blood workup as follows: WBC 5, hemoglobin 10.8, hematocrit 28.0, platelet count 85,000. Chemistry shows sodium 130, potassium 5.5, chloride 109, carbon dioxide 20, anion gap of 15, BUN 60, creatinine 2.8. EKG shows normal sinus ST-T changes in the lateral lead. IMPRESSION: A 72-year-old male with past medical history significant for extensive coronary artery disease, multiple stent, history of rotablation of right coronary artery in 08/1999 at [facility] followed by subsequent 2 interventions in September and October, last intervention in October in right coronary artery, history of chronic kidney disease, at one point patient was off dialysis, admitted yesterday with elevated BNP and chest pain, unstable angina, acute coronary artery syndrome, history of chronic kidney disease, diabetes, hypertension, hyperlipidemia. RECOMMENDATION: We will give 40 mg of Lasix stat, repeat stat SMA-7, SMA-7 at 1:00 a.m. was potassium 5.5, use Kayexalate at 30 mL, repeat troponin positive. Discussed in length with . If the troponin trend, we will consider cardiac enzymes and I will try to treat medically. We will start baseline medication including Ranexa and put the nitro paste. Ranexa is not , I told the patient to advise to bring from the home medication. We will hold lisinopril for now, continue low-dose beta-berkley and we will put p.o. Lasix. Thank you Dr. Reyes for providing us an opportunity in taking care of the patient, Andrew Tanner. We will repeat the echo to assess LV function. Isabella Mcgregor MD
--- NOTE | 2018-01-25 15:21 | HP ---
DATE OF EXAM: 01/25/2018 The patient is a 72-year-old male who developed chest pain while at rest watching TV. It was not relieved after two sublingual nitroglycerin tablets. It was not associated with any radiation. The patient did experience some shortness of breath. However, he was nondiaphoretic, denies palpitations, denies nausea or vomiting. So after the second nitroglycerin sublingual failed to relieve the discomfort, the patient presented to the emergency room where he is evaluated and admitted. The patient is known to have a history of coronary artery disease with multiple coronary stents, the last one was placed in September 2017. He is status post cardiac ablation for atrial fibrillation. He is known to have a history of congestive heart failure, insulin-dependent diabetes mellitus, asbestosis, deep vein thrombosis, hypothyroidism, cirrhosis of the liver with ascites. He also has a history of CKD and had been on dialysis several months ago. HISTORY OF PRESENT ILLNESS: The history of present illness is as above. The patient is also known to have a history of chronic kidney disease. He had been on dialysis in the past; however, has been doing very well off dialysis for the past several months. REVIEW OF SYSTEMS: Otherwise unremarkable. SOCIAL HISTORY: He is a nonsmoker, nonalcoholic drinker. ALLERGIES: HAS NO KNOWN MEDICAL ALLERGIES. FAMILY HISTORY: He is with children. MEDICATIONS: At the time of admission included, NovoLog 70/30 mix 25 units subcutaneously twice a day. He is also taking Victoza 1.25 mg subcutaneously at bedtime, metoprolol 25 mg once a day, lactulose 15 mg daily, Altace 1.25 mg daily, he has the sublingual nitroglycerin tablets 0.4 mg as needed, Brilinta 90 mg twice a day, Synthroid 88 mcg daily, ranitidine 150 mg twice a day, Ranexa 500 mg twice a day and Duricef 500 mg twice a day. PHYSICAL EXAMINATION: VITAL SIGNS: On physical exam, his blood pressure is 168/82, respirations are 18, heart rate is 80 beats per minute and he is afebrile. HEAD, EYES, EARS, NOSE AND THROAT: Unremarkable. NECK: Supple with no lymphadenopathy. No goiter. HEART: Sounds are regular. There is systolic murmur appreciated. LUNGS: Clear anteriorly and laterally. ABDOMEN: Round, soft, nontender with no organomegaly. EXTREMITIES: Free of cyanosis, clubbing or edema. NEUROLOGICALLY: The patient is awake, alert and oriented with no focal neurological signs. LABORATORY DATA: His EKG showed regular sinus rhythm with first-degree AV block and possible lateral ischemia. His chest x-ray shows no acute disease. White blood cell count was 5.6, hemoglobin and hematocrit are 10.4 and 28.7 respectively and platelet count is 86,000. PT/INR is normal and PTT is 29.9. Serum chemistry shows sodium to be 138, potassium is 5.5, chloride is 109, carbon dioxide is 20, blood urea nitrogen is 60 and creatinine is 2.8 which is around his usual baseline with the chronic kidney disease and his glucose is 235. Liver enzymes are normal. Troponin is intermediate at 0.04. BNP is mildly elevated at 985. The patient is admitted to the telemetry floor. Repeat cardiac enzymes will be followed. Consultation with the doffer, Dr. Mcgregor is requested. Dr. Mcgregor has seen the patient and ordered a an echocardiogram. If needed, the patient may undergo coronary catheterization; however, we will try to avoid this because of his renal function and fear the patient having to return to hemodialysis. Jim Reyes MD MTDD
--- NOTE | 2018-01-25 15:38 | PN ---
DATE: 01/25/2018 SUBJECTIVE: A.M lab came back. Potassium 5, hemoglobin 10.1. BUN 56, albumin 3.1. Troponin is pending, but the floor called and the repeat troponin is 0.89. ASSESSMENT AND PLAN: We will treat the patient if unstable angina. Thought, the patient is in renal insufficiency. The patient is currently chest-pain free. Further recommendations will depend on hospital course. We will follow up serial CPK and troponin. We will give 1 dose of Lovenox. Further recommendations during the hospital course. Isabella Mcgregor MD
--- NOTE | 2018-01-25 16:21 | RAD ---
Date of service: 01/25/2018 HISTORY: F/U pneumonia and compare COMPARISON: Earlier same day TECHNIQUE: Chest PA and lateral FINDINGS: LUNGS: No active pulmonary disease. PLEURA: No significant pleural effusion identified. No pneumothorax apparent. CARDIOVASCULAR: Aortic calcifications Normal cardiac size. No pulmonary vascular congestion. OSSEOUS STRUCTURES: No significant abnormalities. VISUALIZED UPPER ABDOMEN: Normal. OTHER FINDINGS: None. IMPRESSION: No active disease.
[2018-01-25] MEDS ORDERED: INSULIN ASPART PROT SC SCH (17:00)
[2018-01-25] MEDS ORDERED: [UNRECOGNIZED DRUG - OTHER] SC SCH (17:00)
[2018-01-25] MEDS ORDERED: Insulin Lispro (humaLOG) MIX 75/25(10 ml) SC SCH (17:00)
[2018-01-25] MEDS ORDERED: INSULN ASP SC SCH (17:00)
--- NOTE | 2018-01-25 17:50 | CARD ---
APPROVED REPORT Date of service: 01/25/2018 EXAM: Two-dimensional and M-mode echocardiogram with Doppler and color Doppler. INDICATION Chest Pain 2D DIMENSIONS Left Atrium (2D)4.5 (1.6-4.0cm)IVSd1.6 (0.7-1.1cm) LVDd4.1 (3.9-5.9cm)PWd1.1 (0.7-1.1cm) LVDs2.7 (2.5-4.0cm)FS (%) 33.8 % LVEF (%)63.1 (>50%) M-Mode DIMENSIONS Aortic Root2.70 (2.2-3.7cm)Aortic Cusp Exc.1.30 (1.5-2.0cm) Aortic Valve AoV Peak Jqzboalf182.0cm/Ema Peak GR.17mmHg Mitral Valve E/A ratio0.0 TDI E/Lateral E'0.0E/Medial E'0.0 Tricuspid Valve TR Peak [id number]/sRAP [id number] Peak Gr.27mmHg [id number] LEFT VENTRICLE The left ventricle is normal size. There is mild concentric left ventricular hypertrophy. Proximal septal thickening is noted. The left ventricular function is normal.EF-60-65% There is mild hypokinesis in the mid-inferolateral wall. Transmitral Doppler flow pattern is Grade III-reversible restrictive diastolic dysfunction. No left ventricle thrombus noted on this study. There is no ventricular septal defect visualized. There is no left ventricular aneurysm. There is no mass noted in the left ventricle. RIGHT VENTRICLE The right ventricle is normal size. There is normal right ventricular wall thickness. The right ventricular systolic function is normal. ATRIA The left atrium is mildly dilated. The right atrium size is normal. The interatrial septum is intact with no evidence for an atrial septal defect. AORTIC VALVE The aortic valve is calcified and displays decreased opening. The aortic valve is severely sclerotic. There is trace aortic regurgitation. There is mild valvular aortic stenosis, VS Severe aortic sclerosis. There is no aortic valvular vegetation. MITRAL VALVE The mitral valve is calcified but opens well. Mitral annular calcification is moderate to severe. Mitral regurgitation is trace to Mild. There is no mitral valve stenosis. There is no evidence of mitral valve prolapse. TRICUSPID VALVE The tricuspid valve leaflets are thickened , but open well. There is Mild to Moderarte tricuspid regurgitation.RVSP-37 mmof Hg. There is no tricuspid valve stenosis. There is no tricuspid valve prolapse or vegetation. PULMONIC VALVE The pulmonic valve is mildly thickened. There is trace to mild pulmonic valvular regurgitation. There is no pulmonic valvular stenosis. GREAT VESSELS The aortic root is normal in size. The ascending aorta is normal in size. The pulmonary artery is normal. The IVC is normal in size and collapses >50% with inspiration. PERICARDIAL EFFUSION There is no pleural effusion. There is no pericardial effusion. <Conclusion> The left ventricle is normal size. There is mild concentric left ventricular hypertrophy. Proximal septal thickening is noted. The left ventricular function is normal.EF-60-65% There is trace aortic regurgitation. There is mild valvular aortic stenosis, VS Severe aortic sclerosis. Mitral regurgitation is trace to Mild. There is Mild to Moderarte tricuspid regurgitation.RVSP-37 mmof Hg. There is trace to mild pulmonic valvular regurgitation. There is no pericardial effusion.
[2018-01-25] MEDS: RANOLAZINE 500 MG PO SCH (17:54)
[2018-01-25] MEDS ORDERED: LIRAGLUTIDE 1.2 MG SC SCH ×2 (18:00)
[2018-01-25] MEDS ORDERED: RANOLAZINE 500 MG PO SCH (18:00)
[2018-01-25 21:11] LABS: TROPONIN I 0.53 ng/mL
[2018-01-26] MEDS: Insulin Reg-LOW-Coverage SC SCH ×3 (00:33→12:19)
[2018-01-26] MEDS: Nitroglycerin 2% Ointment Foilpak UD TOP SCH ×2 (04:00→09:43)
[2018-01-26 06:36] LABS: BASO # 0.05 K/mm3 (0.0-2.0); BASO % 0.9 % (0.0-3.0); EOS # 0.1 (0.0-0.7); EOS % 2.3 % (1.5-5.0); GRAN # 3.37 (1.4-6.5); HEMOGLOBIN 10.2 g/dL (14.0-18.0); LYMPH # 1.3 (1.2-3.4); LYMPH % 23.3 % (22.0-35.0); MEAN CORPUSCULAR HEMOGLOBIN 32.8 pg (25.0-35.0); MEAN CORPUSCULAR HGB CONC 36.4 g/dl (31.0-37.0); MEAN PLATELET VOLUME 11.1 fl (7.0-11.0); MONO # 0.8 (0.1-0.6); MONO % 13.5 % (1.0-6.0); RBC 3.11 10^6/uL (3.5-6.1); RED CELL DISTRIBUTION WIDTH 15.3 % (11.5-14.5); WHITE BLOOD COUNT 5.6 10^3/uL (4.5-11.0)
[2018-01-26 06:44] LABS: CALCIUM 8.9 mg/dL (8.4-10.5)
[2018-01-26] MEDS ORDERED: Insulin Lispro (humaLOG) MIX 75/25(10 ml) SC SCH (07:00)
[2018-01-26 07:26] LABS: TROPONIN I 0.37 ng/mL
[2018-01-26] MEDS ORDERED: Sod Polystyrene Sulf 15 gm/60 ml Susp PO STA (08:12)
--- NOTE | 2018-01-26 08:38 | CP.PCM.PN ---
Subjective - Date & Time of Evaluation Date of Evaluation: 01/26/18 Time of Evaluation: 07:00 - Subjective Subjective: Awake, alert, denies chest pain Reason for consultation and follow up:Cardiac evaluation of chest pain and difficulty breathing, history of coronary artery disease with multiple stents, congestive heart failure, hypertension Seen and examined by me and Dr. Mcgregor Objective - Vital Signs/Intake and Output Vital Signs (last 24 hours): Temp Pulse Resp BP Pulse Ox 98.0 F 63 19 110/59 L 100 01/26/18 06:00 01/26/18 06:00 01/26/18 06:00 01/26/18 06:00 01/26/18 06:00 Intake and Output: 01/26/18 01/26/18 06:59 18:59 Intake Total 1600 Output Total 600 Balance 1000 - Medications Medications: Current Medications Aspirin (Ecotrin) 81 mg PO DAILY [facility] Last Admin: 01/25/18 11:03 Dose: 81 mg Enoxaparin Sodium (Lovenox) 80 mg SC DAILY [facility]; Protocol Last Admin: 01/25/18 11:13 Dose: 80 mg Famotidine (Pepcid) 20 mg PO BID [facility] Last Admin: 01/25/18 17:46 Dose: 20 mg Furosemide (Lasix) 40 mg PO DAILY [facility] Insulin Human Regular (Humulin R Low) [address] [facility]; Protocol Last Admin: 01/26/18 00:33 Dose: Not Given Insulin Lispro Protam/Lispro Human (Humalog Mix 75/25) 75 units SC 0700 [facility] Insulin Lispro Protam/Lispro Human (Humalog Mix 75/25) 25 units SC 1700 [facility] Last Admin: 01/25/18 17:45 Dose: 25 units Lactulose (Enulose) 15 gm PO HS [facility] Last Admin: 01/26/18 00:33 Dose: Not Given Levothyroxine Sodium (Synthroid) 88 mcg PO DAILY [facility] Last Admin: 01/25/18 11:03 Dose: 88 mcg Metoprolol Succinate (Toprol Xl) 25 mg PO DAILY [facility] Metoprolol Tartrate (Lopressor) 25 mg PO BID [facility] Last Admin: 01/25/18 17:46 Dose: 25 mg Nitroglycerin (Nitro-Bid 2% Oint) 0.5 ea TOP Q6H [facility] Last Admin: 01/26/18 04:00 Dose: 0.5 ea Nitroglycerin (Nitrostat Sl Tab) 0.4 mg SL Q5M PRN PRN Reason: Other Non-Formulary Medication (Vitamin B Complex [Super B-50 Complex]) 1 tab PO DAILY [facility] Non-Formulary Medication (Liraglutide [Victoza 3-Anuel]) 1.2 mg SC QPM [facility] Last Admin: 01/25/18 17:54 Dose: Not Given Non Formulary Medication ( Ranolazine [Ranexa] Er 500 Mg) 500 mg PO BID [facility] Last Admin: 01/25/18 17:54 Dose: 500 mg Ramipril (Altace) 1.25 mg PO DAILY [facility] Ticagrelor (Brilinta) 90 mg PO BID [facility] Last Admin: 01/25/18 17:46 Dose: 90 mg - Labs Labs: 01/26/18 06:00 01/26/18 06:00 PT 12.3 SECONDS (9.4-12.5) 01/25/18 00:57 INR 1.08 01/25/18 00:57 APTT 29.9 Seconds (25.1-36.5) 01/25/18 00:57 - Constitutional Appears: Non-toxic, No Acute Distress - Head Exam Head Exam: NORMAL INSPECTION, NORMOCEPHALIC - Eye Exam Eye Exam: Normal appearance Pupil Exam: NORMAL ACCOMODATION - ENT Exam ENT Exam: Mucous Membranes Moist, Normal Exam - Respiratory Exam Respiratory Exam: Decreased Breath Sounds, Clear to Ausculation Bilateral, NORMAL BREATHING PATTERN - Cardiovascular Exam Cardiovascular Exam: Irregular Rhythm, +S1, +S2 Additional comments: Atrial flutter telemetry 60's - GI/Abdominal Exam GI & Abdominal Exam: Distended, Soft, Normal Bowel Sounds - Extremities Exam Extremities Exam: Full ROM - Neurological Exam Neurological Exam: Alert, Awake, Oriented x3 - Psychiatric Exam Psychiatric exam: Normal Affect, Normal Mood - Skin Skin Exam: Dry, Normal Color, Warm Assessment and Plan - Assessment and Plan (Free Text) Assessment: A 72 year old male who came in to the ER due to midsternal chest pain with shortness of breath. History of coronary artery disease with multiple stents (last one was in September 2017),cardiac ablation,CHF,IDDM,asbestosis,DV T,hypertension,hypothyroidism,hyperlipidemia, liver cirrhosis with ascites, osteomyelitis. History of chronic kidney disease, at one point patient was on hemodialysis, now off dialysis.Patient is resistant to Plavix. On Brilinta.Admitted for unstable angina,acute coronary syndrome. Troponin trending down. Denies chest pain and shortness of breath. Will treat medically for now. Also BUN/Creatinine elevated. Plan: Denies chest pain or shortness of breath Troponin trending down- 0.89/0.53/0.37 Will maximize medical treatment for now Dr. Mcgregor spoke with Elevated K today 5.4 Will give Kayexalate 30 gms x 1 Telemetry atrial flutter at 60's controlled rate On ASA 81 mg daily, lovenox 80 mg daily,Lasix 40 mg daily, Synthroid 88 mcg daily,Toprol 25 mg daily,Nitrobid top every 6 hours Ranexa 500 mg BID, Ramipril 1.25 mg daily, Brilinta 90 mg BID Chest X ray today unremarkable Blood pressure controlled Continue current treatment Continue current medications Chart reviewed Will follow up Plan and treatment discussed with Dr. Mcgregor
[2018-01-26] MEDS: Enoxaparin 80 mg Syringe SC SCH (09:25)
[2018-01-26] MEDS: Levothyroxine 88 MCG TAB PO SCH (09:27)
[2018-01-26] MEDS: RANOLAZINE 500 MG PO SCH (09:47)
[2018-01-26] MEDS ORDERED: VITAMIN B COMPLEX PO SCH (10:00)
[2018-01-26] MEDS ORDERED: Metoprolol Succinate 25 mg XL Tab PO SCH (10:00)
[2018-01-26 11:57] VITALS: BP 99/50; PULSE 67; RESP 18; TEMP 98
--- NOTE | 2018-01-26 17:08 | PN ---
DATE: 01/26/2018 REASON FOR CONSULTATION AND FOLLOWUP: Shortness of breath, unstable angina. Troponin trended down. Acute kidney failure. History of coronary artery disease. This note is an addition to dictated by nurse practitioner. The patient is much comfortable and walks on the hallway. No further episode of chest pain. Currently, on Ranexa. LABORATORY DATA: Today, hemoglobin 10.2, and hematocrit 28. BUN today is 60, creatinine 3.4, and potassium 5.4. Troponin trended down to 0.37. Chest x-ray shows no active disease, significantly improved CHF. The patient had echocardiography done yesterday that revealed ejection fraction of 60 to 65%, trace aortic regurgitation, mild valvular aortic stenosis versus aortic sclerosis, trace to mild mitral regurgitation, mild to moderate tricuspid regurgitation, pressure 37. IMPRESSION: In summary, this is a 72-year-old male with past medical history significant for coronary artery disease, status post multiple stent as mentioned in H and P, admitted with shortness of breath,worsening renal insufficiency, troponin positive, most likely secondary to renal insufficiency, which is trending down. RECOMMENDATION: Hold lisinopril because of worsening renal insufficiency. Continue aspirin. Continue Brilinta. The patient is resistant to Plavix. Continue Synthroid and continue Toprol-XL 25 mg daily. Discontinue Nitrobid. Continue Ranexa. Possible discharge home today. We will follow with you. I discussed with Dr. Reyes, explained to . Continue p.r.n. nitroglycerin; I will increase to 1 g twice a day, Ranexa 1000 mg b.i.d. from today. Thank you Dr. Reyes for providing us the opportunity in taking care of the patient, Andrew Tanner. As mentioned, we will discontinue Ramipril. Continue aspirin. Continue Brilinta. Continue insulin, Lasix 40 p.o. daily. Continue metoprolol 25 mg p.o. daily and as mentioned Ranexa 1 g twice a day. New prescription for 1000 mg twice a day given. The patient is okay to be discharged. We will follow up as outpatient. Isabella Mcgregor MD
[2018-01-26] MEDS ORDERED: Non Formulary Medication (Ranolazine [Ranexa] 1,000 MG) PO SCH (18:00)
== END 2018-01-26 16:42 | disposition home or self-care (01) ==
LOC: ED 00:43 → ERH 04:50 → 2RSO 06:20
PROVIDERS: ADMIT Internal Medicine; ATTEND Internal Medicine
DX: I24.9 Acute ischemic heart disease, unspecified (principal); I25.110 Atherosclerotic heart disease of native coronary artery with unstable angina pectoris; I13.2 Hypertensive heart and chronic kidney disease with heart failure and with stage 5 chronic kidney disease, or end stage renal disease; I50.9 Heart failure, unspecified; N18.9 Chronic kidney disease, unspecified; J44.9 Chronic obstructive pulmonary disease, unspecified; I08.3 Combined rheumatic disorders of mitral, aortic and tricuspid valves; E10.22 Type 1 diabetes mellitus with diabetic chronic kidney disease; I44.0 Atrioventricular block, first degree; E03.9 Hypothyroidism, unspecified; R06.00 Dyspnea, unspecified; Z96.653 Presence of artificial knee joint, bilateral; Z95.5 Presence of coronary angioplasty implant and graft; Z79.02 Long term (current) use of antithrombotics/antiplatelets; Z79.4 Long term (current) use of insulin; Z86.718 Personal history of other venous thrombosis and embolism; Z77.090 Contact with and (suspected) exposure to asbestos
CPT/HCPCS: 36415; 71045; 71046; 80048; 80053; 80061; 82550; 82948; 83036; 83615; 83735; 83880; 84100; 84443; 84484; 85025; 85027; 85610; 85730; 87070; 87181; 93005; 93306; 96372; 96374; 96375; 96376; 99285; G0378; J1650; J1940; J2270

== ENCOUNTER 2018-02-19 10:58 | Observation (INO) | payer MEDICARE, OTHER ==
[2018-02-19 11:01] VITALS: BMI 28.4
--- NOTE | 2018-02-19 11:59 | ED PDOC ---
Arrival/HPI - General Chief Complaint: Dizziness/Lightheaded Time Seen by Provider: 02/19/18 11:07 Historian: Patient, Spouse (), Family (son) - History of Present Illness Narrative History of Present Illness (Text): 02/19/18 11:50 A 72 year old male, whose past medical history includes CAD with multiple (11) coronary stents (last one in September 2017), cardiac ablation, CHF, IDDM, asbestosis, ESRD, DVT, hypertension, hypothyroidism, liver cirrhosis with ascites, and osteomyelitis, dialysis for 3 months(no longer has any sessions), presents to the emergency department complaining of dizziness/lightheadedness (describe as room-spinning sensation) this morning upon waking up at 10:00. Patient is accompanied by and son here in the ER. Patient reports when standing/sitting/laying down/ambulating, experiences dizziness. Worse when moving his head. Son and both states patient appears more tired/weak than baseline. No unilateral weakness or slurred speech. mentions patient also experiencing a intermittent dry cough, and notes last time patient had all these symptoms, before Thanksgiving, patient had similar symptoms of dizziness, fatigue, and cough. Patient was seen by a physician and was told to have red throat. Was prescribed antibiotics and cough medicine. Only difference between last time and today is that patient's blood pressure is lower than baseline. Patient denies any fever, chills, headache, slurred speech, weakness, appetite changes, constipation, diarrhea, dysuria, rash, or any other complaints at this time. Patient takes Lisinopril 10 mg. Has not taken cough medication last night. Time/Duration: Other (10:00) Past Medical History - Provider Review Nursing Documentation Reviewed: Yes - Infectious Disease Hx of Infectious Diseases: None - Cardiac Hx Angina: Yes Hx Cardiac Arrhythmia: Yes Hx Congestive Heart Failure: Yes Hx Hypertension: Yes Hx Peripheral Edema: Yes - Pulmonary Hx Respiratory Disorders: Yes Hx Chronic Obstructive Pulmonary Disease (COPD): Yes - Neurological Hx Neurological Disorder: No - HEENT Hx HEENT Disorder: Yes (glasses) - Renal Hx Renal Disorder: Yes Hx Renal Failure: Yes (Pt not on dialysis since may 2017) - Endocrine/Metabolic Hx Endocrine Disorders: Yes Hx Diabetes Mellitus Type 1: Yes Hx Hypothyroidism: Yes - Hematological/Oncological Hx Blood Disorders: Yes Hx Cirrhosis: Yes (liver) - Integumentary Hx Dermatological Disorder: No - Musculoskeletal/Rheumatological Hx Musculoskeletal Disorders: Yes Hx Arthritis: Yes Hx Osteomyelitis: Yes - Gastrointestinal Hx Gastrointestinal Disorders: No - Genitourinary/Gynecological Hx Genitourinary Disorders: No - Psychiatric Hx Substance Use: No - Surgical History Hx Cardiac Catheterization: Yes Hx Cholecystectomy: Yes Hx Coronary Stent: Yes (11 stents as per patient) Hx Musculoskeletal Surgery: Yes (B/L total knee replacement) - Anesthesia Hx Anesthesia Reactions: No Hx Malignant Hyperthermia: No - Suicidal Assessment Feels Threatened In Home Enviroment: No Family/Social History - Physician Review Nursing Documentation Reviewed: Yes Family/Social History: No Known Family HX Smoking Status: Former Smoker Hx Alcohol Use: No Hx Substance Use: No Allergies/Home Meds Allergies/Adverse Reactions: Allergies No Known Allergies Allergy (Verified 02/19/18 11:02) Home Medications: Home Meds Medication Instructions Recorded Confirmed RX: Metoprolol Succinate XL 25 mg PO DAILY 02/17/17 01/25/18 [Toprol XL] RX: Insulin Aspart Prot/Insuln Asp 25 unit SC 0700,1700 03/12/17 01/25/18 [Novolog Mix 70-30 Vial] RX: Lactulose [Generlac] 15 ml PO DAILY 04/19/17 01/26/18 Liraglutide [Victoza 3-Anuel] 1.2 mg SC QPM 07/21/17 01/25/18 RX: Nitroglycerin [Nitrostat] 0.4 mg SL PRN PRN 07/21/17 01/25/18 RX: Vitamin B Complex [Super B-50 1 tab PO DAILY 07/21/17 01/25/18 Complex] Ticagrelor [Brilinta] 90 mg PO BID 10/06/17 01/25/18 Levothyroxine [Synthroid] 88 mcg PO DAILY 10/20/17 01/25/18 Ranitidine HCl [Acid General Hardware Salesperson 150] 150 mg PO BID 10/20/17 01/25/18 Ranolazine [Ranexa] 1,000 mg PO BID 10/20/17 01/26/18 RX: Cefadroxil [Duricef] 500 mg PO BID 01/25/18 01/25/18 Review of Systems - Physician Review All systems were reviewed & negative as marked: Yes - Review of Systems Constitutional: absent: Fevers, Night Sweats Eyes: absent: Vision Changes ENT: absent: Hearing Changes Respiratory: Cough (dry cough) Cardiovascular: absent: Chest Pain, Palpitations Gastrointestinal: absent: Abdominal Pain, Stool Changes, Constipation, Diarrhea, Nausea, Vomiting, Appetite Changes Genitourinary Male: absent: Dysuria, Frequency, Hematuria Musculoskeletal: absent: Arthralgias, Back Pain, Neck Pain Skin: absent: Pruritis Neurological: Dizziness (and lightheadeness (described as room-spinning sensation)). absent: Headache, Focal Weakness, Gait Changes, Speech Changes, Facial Droop, Disequilibrium, Seizure Endocrine: absent: Diaphoresis, Polyuria Physical Exam Vital Signs Reviewed: Yes Vital Signs Temp Pulse Resp BP Pulse Ox 02/19/18 10:58 97.6 F 65 22 117/54 L 100 Temperature: Afebrile Blood Pressure: Normal Pulse: Regular Respiratory Rate: Normal Appearance: Positive for: Well-Appearing, Non-Toxic, Comfortable Pain Distress: None Mental Status: Positive for: Alert and Oriented X 3 Finger Stick Blood Glucose: 81 - Systems Exam Head: Present: Atraumatic Pupils: Present: PERRL Extroacular Muscles: Present: EOMI. No: Gaze Palsy Conjunctiva: Present: Normal Ears: Present: Normal, NORMAL TM Mouth: Present: Moist Mucous Membranes Pharnyx: Present: Normal. No: ERYTHEMA, EXUDATE Nose (External): Present: Atraumatic Nose (Internal): Present: Normal Inspection Neck: Present: Normal Range of Motion. No: Meningeal Signs, MIDLINE TENDERNESS Respiratory/Chest: Present: Clear to Auscultation, Good Air Exchange. No: Respiratory Distress Cardiovascular: Present: Regular Rate and Rhythm, Normal S1, S2 Abdomen: Present: Normal Bowel Sounds. No: Tenderness, Distention, Peritoneal Signs, Rebound, Guarding Back: Present: Normal Inspection. No: CVA Tenderness Upper Extremity: Present: Normal Inspection, Normal ROM, NORMAL PULSES, Capillary Refill < 2s. No: Cyanosis, Edema Lower Extremity: Present: Normal Inspection, NORMAL PULSES, Normal ROM, Capillary Refill < 2 s. No: Edema, CALF TENDERNESS Neurological: Present: GCS=15, CN II-XII Intact, Speech Normal, Motor Func Grossly Intact, Normal Cerebellar Funct, Gait Normal Skin: Present: Warm, Dry Psychiatric: Present: Alert, Oriented x 3, Normal Insight Medical Decision Making ED Course and Treatment: 02/19/18 11:54 Impression: 72 year old male with dizziness/lightheadedness (room-spinning sensation) and intermittent dry cough. intermittent room spinning, ?orthostatic at home. Likely fluid depleted. No dark or bloody stool. No new meds. No abdominal pain. No cerebellar signs on my exam. No meningeal signs. No CP or shortness of breath. No trauma or fall. Given co-morbidities will seek imaging and labs. Plan: -- EKG -- Head CT -- Chest X-ray -- Labs -- Venous Blood Gas -- Blood Culture -- Urine Culture -- Urinalysis -- IV Fluids -- Reassess and disposition Prior Visits: Notes and results from previous visits were reviewed. Patient was last seen in the emergency department on 01/25/2018 for chest pain. Patient was placed under observation. Progress Notes: EKG: Ordered, reviewed, and independently interpreted the EKG. Rate : 65 BPM Rhythm : NSR Interpretation : No STEMI, no ST-segment elevations or depressions, no T-wave inversions, normal intervals. Comparison : No previous EKG for comparison. 11:56 Blood pressure readings: Supine - 107/50; semi-upright - 100/43; vertical - 89/49. Upon seeing patient, blood pressure was 89/49. IVF running. 02/19/2018 13:[address] IMPRESSION: No acute intracranial findings. Dictator: Jim Kumar MD 02/19/2018 14:01 Chest X-ray IMPRESSION: No active disease. Dictator: Jim Kumar MD 02/19/18 15:40 labs, largely unremarkable imaging largely unremarkable Ambulated pt around ER: Per moving at roughly 1/2 normal speed, dizzy at end of walk appreciate consult w/ Dr. Hsu: to obs to his service pt and family agreeable 02/19/18 18:25 - Lab Interpretations Lab Results: Lab Results 02/19/18 11:32: POC Glucose (mg/dL) 81 I have reviewed the lab results: Yes - RAD Interpretation Radiology Orders: 02/19/18 11:49 HEAD W/O CONTRAST [CT] Stat CHEST TWO VIEWS (PA/LAT) [RAD] Stat - Medication Orders Current Medication Orders: Sodium Chloride (Sodium Chloride 0.9%) 500 mls @ 50 mls/hr IV .Q10H MOHINDER - Scribe Statement The provider has reviewed the documentation as recorded by the Jimboibe Roseline Marques Provider Scribe Attestation: All medical record entries made by the Scribe were at my direction and personally dictated by me. I have reviewed the chart and agree that the record accurately reflects my personal performance of the history, physical exam, medical decision making, and the department course for this patient. I have also personally directed, reviewed, and agree with the discharge instructions and disposition. Disposition/Present on Arrival - Present on Arrival Any Indicators Present on Arrival: No History of DVT/PE: No History of Uncontrolled Diabetes: No Urinary Catheter: No History of Decub. Ulcer: No History Surgical Site Infection Following: None - Disposition Have Diagnosis and Disposition been Completed?: No Diagnosis: Weakness Disposition: HOSPITALIZED Disposition Time: 15:15 Patient Problems: Current Active Problems Problem Status Onset Weakness Acute Condition: GOOD
[2018-02-19] MEDS ORDERED: Sodium Chloride 0.9% 500 ML IV SCH (12:00)
[2018-02-19 12:57] LABS: BASO # 0.03 K/mm3 (0.0-2.0); BASO % 0.5 % (0.0-3.0); EOS # 0.2 (0.0-0.7); EOS % 3.3 % (1.5-5.0); GRAN # 4.01 (1.4-6.5); GRAN % 66.3 % (50.0-68.0); HEMOGLOBIN 10.5 g/dL (14.0-18.0); LYMPH % 16.7 % (22.0-35.0); MEAN CELL VOLUME 90.7 fl (80.0-105.0); MEAN CORPUSCULAR HEMOGLOBIN 32.6 pg (25.0-35.0); MEAN PLATELET VOLUME 10.6 fl (7.0-11.0); MONO # 0.8 (0.1-0.6); MONO % 13.2 % (1.0-6.0); RBC 3.22 10^6/uL (3.5-6.1); RED CELL DISTRIBUTION WIDTH 15.6 % (11.5-14.5); WHITE BLOOD COUNT 6.1 10^3/uL (4.5-11.0)
[2018-02-19 13:07] LABS: INR 1.08; PARTIAL THROMBOPLASTIN TIME 29.7 Seconds (25.1-36.5); PROTHROMBIN TIME 12.4 SECONDS (9.4-12.5)
--- NOTE | 2018-02-19 13:22 | CT ---
Date of service: 02/19/2018 PROCEDURE: CT HEAD WITHOUT CONTRAST. HISTORY: hypotensive, dizzy COMPARISON: None available. TECHNIQUE: Axial computed tomography images were obtained through the head/brain without intravenous contrast. Radiation dose: Total exam DLP = 847.45 mGy-cm. This CT exam was performed using one or more of the following dose reduction techniques: Automated exposure control, adjustment of the mA and/or kV according to patient size, and/or use of iterative reconstruction technique. FINDINGS: HEMORRHAGE: No intracranial hemorrhage. BRAIN: No mass effect or edema. No atrophy or chronic microvascular ischemic changes. VENTRICLES: Unremarkable. No hydrocephalus. CALVARIUM: Unremarkable. PARANASAL SINUSES: Unremarkable as visualized. No significant inflammatory changes. MASTOID AIR CELLS: Unremarkable as visualized. No inflammatory changes. OTHER FINDINGS: None. IMPRESSION: No acute intracranial findings
[2018-02-19 13:28] LABS: CALCIUM 9.1 mg/dL (8.4-10.5)
[2018-02-19 13:39] LABS: TROPONIN I 0.03 ng/mL
[2018-02-19 14:02] LABS: INFLUENZA A B NEGATIVE FOR FLU A/B (NEGATIVE)
--- NOTE | 2018-02-19 14:05 | RAD ---
Date of service: 02/19/2018 HISTORY: hypotensive/ dizzy COMPARISON: 01/25/2018 TECHNIQUE: Chest PA and lateral FINDINGS: LUNGS: No active pulmonary disease. PLEURA: Calcified pleural plaques CARDIOVASCULAR: Mild aortic calcification Normal cardiac size. No pulmonary vascular congestion. OSSEOUS STRUCTURES: No significant abnormalities. VISUALIZED UPPER ABDOMEN: Normal. OTHER FINDINGS: None. IMPRESSION: No active disease.
--- NOTE | 2018-02-19 15:31 | CARD ---
APPROVED REPORT Date of service: 02/19/2018 EKG Measurement Heart [id number] PA 432P [id number] <Conclusion> Poor data quality, interpretation may be adversely affected Sinus rhythm with 1st degree AV block Nonspecific ST and T wave abnormality Prolonged QT Abnormal ECG
[2018-02-19 16:01] LABS: VENOUS BLOOD GAS BASE EXCESS -4.9 mmol/L (0.0-2.0); VENOUS BLOOD GAS PO2 55 mm/Hg (30-55); VENOUS BLOOD PH 7.33 (7.32-7.43)
[2018-02-19 17:03] LABS: URINE BILIRUBIN NEGATIVE (NEGATIVE); URINE BLOOD NEGATIVE (NEGATIVE); URINE GLUCOSE (UA) NEGATIVE (NEGATIVE); URINE LEUKOCYTE ESTERASE TRACE Leu/uL (NEGATIVE); URINE PROTEIN NEGATIVE mg/dL (<30 mg/dL); URINE UROBILINOGEN 0.2 E.U./dL (<1 E.U./dL)
[2018-02-19 17:07] LABS: URINE APPEARANCE CLEAR (CLEAR); URINE COLOR YELLOW (YELLOW)
[2018-02-19 17:20] LABS: URINE BACTERIA NEG (NEG); URINE EPITHELIAL CELLS 0 - 2 /hpf (0-5); URINE RBC NEGATIVE /hpf (0-2); URINE WBC 0 - 2 /hpf (0-6)
[2018-02-20] MEDS ORDERED: RANOLAZINE 1000 MG PO SCH (10:00)
[2018-02-20] MEDS ORDERED: Metoprolol Succinate 25 mg XL Tab PO SCH (10:00)
[2018-02-20] MEDS ORDERED: Levothyroxine 88 MCG TAB PO SCH (10:00)
[2018-02-20] MEDS ORDERED: Multivitamin Therapeutic Tab PO SCH (10:00)
[2018-02-20 10:11] VITALS: BP 104/43; PULSE 67
[2018-02-20 10:50] VITALS: RESP 18; TEMP 98; O2SAT 98
[2018-02-20 11:15] LABS: CALCIUM 8.8 mg/dL (8.4-10.5)
[2018-02-20] MEDS ORDERED: Sod Polystyrene Sulf 15 gm/60 ml Susp PO ONE (11:42)
[2018-02-20] MEDS ORDERED: Insulin Reg-LOW-Coverage SC STA (12:20)
[2018-02-20] MEDS ORDERED: Insulin Reg-LOW-Coverage SC SCH (16:30)
[2018-02-20] MEDS ORDERED: Insulin Lispro (humaLOG) MIX 75/25(10 ml) SC SCH (17:00)
[2018-02-20] MEDS ORDERED: LIRAGLUTIDE 1.2 MG SC SCH (18:00)
== END 2018-02-20 14:14 | disposition home or self-care (01) ==
LOC: ED 10:58 → ERH 15:04 → 5RNO 17:43
PROVIDERS: ADMIT Internal Medicine; ATTEND Internal Medicine
DX: R42 Dizziness and giddiness (principal); R53.1 Weakness; E03.9 Hypothyroidism, unspecified; I13.2 Hypertensive heart and chronic kidney disease with heart failure and with stage 5 chronic kidney disease, or end stage renal disease; I25.10 Atherosclerotic heart disease of native coronary artery without angina pectoris; I50.9 Heart failure, unspecified; J44.9 Chronic obstructive pulmonary disease, unspecified; J61 Pneumoconiosis due to asbestos and other mineral fibers; K74.60 Unspecified cirrhosis of liver; N18.6 End stage renal disease; Z79.4 Long term (current) use of insulin; Z90.49 Acquired absence of other specified parts of digestive tract; Z95.5 Presence of coronary angioplasty implant and graft; Z96.653 Presence of artificial knee joint, bilateral; Z99.2 Dependence on renal dialysis; E10.22 Type 1 diabetes mellitus with diabetic chronic kidney disease
CPT/HCPCS: 36415; 70450; 71046; 80048; 80053; 81001; 82803; 82948; 83735; 83880; 84443; 84484; 85025; 85610; 85730; 86850; 86900; 87040; 87070; 87086; 87430; 87804; 93005; 99283; G0378; J7040

== ENCOUNTER 2018-04-02 11:37 | Inpatient (IN) | payer MEDICARE, OTHER ==
[2018-04-02 11:40] VITALS: BMI 27.6
[2018-04-02 12:10] LABS: HEMOGLOBIN 9.6 g/dL (14.0-18.0); MEAN CORPUSCULAR HEMOGLOBIN 33.7 pg (25.0-35.0); MEAN CORPUSCULAR HGB CONC 36.2 g/dl (31.0-37.0); MEAN PLATELET VOLUME 10.4 fl (7.0-11.0); RBC 2.85 10^6/uL (3.5-6.1); RED CELL DISTRIBUTION WIDTH 16.8 % (11.5-14.5); WHITE BLOOD COUNT 5.4 10^3/uL (4.5-11.0)
[2018-04-02 12:11] LABS: INR 1.09; PROTHROMBIN TIME 12.5 SECONDS (9.4-12.5)
--- NOTE | 2018-04-02 12:11 | ED PDOC ---
Arrival/HPI - General Chief Complaint: Dizziness/Lightheaded Time Seen by Provider: 04/02/18 11:37 - History of Present Illness Narrative History of Present Illness (Text): 73 y/o M c PMHx CAD, stent x 11, CHF, ESRD, no longer on HD, HTN, liver cirrhosis p/w near syncope today. Family at bedside states patient was sitting on couch, got up to go to bathroom, felt lightheaded, sat back down. Describes spinning of room but no longer. No slurred speech. No full LOC. No trauma or fall. Denies chest pain, dyspnea, GI bleeding, diarrhea. PMD Amy Cards: Dory Dalton Past Medical History - Infectious Disease Hx of Infectious Diseases: None - Cardiac Hx Angina: Yes Hx Cardiac Arrhythmia: Yes Hx Congestive Heart Failure: Yes Hx Hypertension: Yes Hx Peripheral Edema: Yes Other/Comment: 11 Cardiac stents - Pulmonary Hx Respiratory Disorders: Yes Hx Chronic Obstructive Pulmonary Disease (COPD): Yes - Neurological Hx Neurological Disorder: No - HEENT Hx HEENT Disorder: Yes (glasses) - Renal Hx Renal Disorder: Yes Hx Renal Failure: Yes (Pt not on dialysis since may 2017) - Endocrine/Metabolic Hx Endocrine Disorders: Yes Hx Diabetes Mellitus Type 1: Yes Hx Hypothyroidism: Yes - Hematological/Oncological Hx Blood Disorders: Yes Hx Cirrhosis: Yes (liver) - Integumentary Hx Dermatological Disorder: No - Musculoskeletal/Rheumatological Hx Musculoskeletal Disorders: Yes Hx Arthritis: Yes Hx Osteomyelitis: Yes - Gastrointestinal Hx Gastrointestinal Disorders: No - Genitourinary/Gynecological Hx Genitourinary Disorders: No - Psychiatric Hx Emotional Abuse: No Hx Physical Abuse: No Hx Substance Use: No - Surgical History Hx Cardiac Catheterization: Yes Hx Cholecystectomy: Yes Hx Coronary Stent: Yes (11 stents as per patient) Hx Musculoskeletal Surgery: Yes (B/L total knee replacement) - Anesthesia Hx Anesthesia Reactions: No Hx Malignant Hyperthermia: No - Suicidal Assessment Feels Threatened In Home Enviroment: No Family/Social History Family/Social History: No Known Family HX Smoking Status: Former Smoker Hx Alcohol Use: No Hx Substance Use: No Allergies/Home Meds Allergies/Adverse Reactions: Allergies No Known Allergies Allergy (Verified 02/19/18 11:02) Home Medications: Home Meds Medication Instructions Recorded Confirmed Metoprolol Succinate XL [Toprol XL] 25 mg PO DAILY 02/17/17 04/02/18 Insulin Aspart Prot/Insuln Asp 25 unit SC 0700,1700 03/12/17 04/02/18 [Novolog Mix 70-30 Vial] Lactulose [Generlac] 15 ml PO DAILY 04/19/17 04/02/18 Liraglutide [Victoza 3-Anuel] 1.2 mg SC QPM 07/21/17 04/02/18 Nitroglycerin [Nitrostat] 0.4 mg SL PRN PRN 07/21/17 04/02/18 Vitamin B Complex [Super B-50 1 tab PO DAILY 07/21/17 04/02/18 Complex] Ticagrelor [Brilinta] 90 mg PO BID 10/06/17 04/02/18 Levothyroxine [Synthroid] 88 mcg PO DAILY 10/20/17 04/02/18 Ranitidine HCl [Acid Bulk Station Operator 150] 150 mg PO BID 10/20/17 04/02/18 Ranolazine [Ranexa] 1,000 mg PO BID 10/20/17 04/02/18 Review of Systems - Physician Review All systems were reviewed & negative as marked: Yes - Review of Systems Constitutional: absent: Fevers Cardiovascular: absent: Chest Pain Physical Exam - Physical Exam Narrative Physical Exam (Text): Gen: NAD head: NC/AT Eyes: Constricted, sluggishly reactive. EOMI. ENT: MMM Neck: Supple Chest: No tenderness CV: Regular rate. Murmur Lungs: CTA b/l Abd: Soft, NT back: NO CVA tenderness Skin: no rash Extremities: No tenderness, no edema Neuro: Alert, oriented x 2. Sensation to light touch intact bilaterally. Vital Signs Pulse Resp BP Pulse Ox 04/02/18 12:05 65 18 116/58 L 100 Finger Stick Blood Glucose: 164 Medical Decision Making ED Course and Treatment: EKG 1st degree block, 67 bpm, no ST elevations, unchanged from previous Impression: 73 y/o M c significant cardiac history with near syncope and now lethargic. Differential: Dehydration, electrolyte abnormality, uremia, vaso vagal, orthostatic hypotension, ACS CXR no consolidation. Labs consistent with dehydration, acute renal insufficiency, hyperammonemia. Dr. Reyes accepts patient to his service. Consults placed for cardiology and nephrology. Disposition/Present on Arrival - Present on Arrival Any Indicators Present on Arrival: No History of DVT/PE: No History of Uncontrolled Diabetes: No Urinary Catheter: No History of Decub. Ulcer: No History Surgical Site Infection Following: None - Disposition Have Diagnosis and Disposition been Completed?: Yes Diagnosis: Hyperammonemia, Renal insufficiency, Near syncope, Dehydration Disposition: HOSPITALIZED Disposition Time: 13:15 Patient Plan: Admission, Telemetry Condition: GUARDED Forms: [employer] (Romanian)
[2018-04-02] MEDS ORDERED: Sodium Chloride 0.9% 1,000 ML IV STA ×2 (12:39→12:57)
[2018-04-02 13:06] LABS: ALBUMIN 3.8 g/dL (3.0-4.8); CALCIUM 9.3 mg/dL (8.4-10.5)
[2018-04-02 13:16] LABS: TROPONIN I 0.06 ng/mL
[2018-04-02 13:31] LABS: URINE BILIRUBIN NEGATIVE (NEGATIVE); URINE BLOOD NEGATIVE (NEGATIVE); URINE GLUCOSE (UA) NEGATIVE (NEGATIVE); URINE LEUKOCYTE ESTERASE NEGATIVE Leu/uL (NEGATIVE); URINE PROTEIN NEGATIVE mg/dL (<30 mg/dL); URINE UROBILINOGEN 0.2 E.U./dL (<1 E.U./dL)
[2018-04-02 13:33] LABS: URINE APPEARANCE CLEAR (CLEAR); URINE COLOR YELLOW (YELLOW)
--- NOTE | 2018-04-02 13:33 | RAD ---
Date of service: 04/02/2018 HISTORY: r/o PNA COMPARISON: 02/19/2018 FINDINGS: LUNGS: No pulmonary infiltrate. Bilateral calcified pleural plaques including bilateral diaphragmatic pleural calcification, consistent with asbestos related pleural disease. PLEURA: No significant pleural effusion identified, no pneumothorax apparent. CARDIOVASCULAR: No aortic atherosclerotic calcification present. Normal cardiac size. No pulmonary vascular congestion. OSSEOUS STRUCTURES: No significant abnormalities. VISUALIZED UPPER ABDOMEN: Normal. OTHER FINDINGS: None. IMPRESSION: Asbestos related pleural disease. No acute infiltrate.
[2018-04-02 14:13] LABS: BARBITURATES, UR NEGATIVE (NEGATIVE); BENZODIAZEPINES, UR NEGATIVE (NEGATIVE); OPIATES, UR NEGATIVE (NEGATIVE); PHENCYCLIDINE, UR NEGATIVE (NEGATIVE)
[2018-04-02] MEDS ORDERED: Metoprolol Succinate 25 mg XL Tab PO STA (16:28)
[2018-04-02] MEDS: Insulin Reg-LOW-Coverage SC SCH (21:53)
[2018-04-03] MEDS: Insulin Reg-LOW-Coverage SC SCH ×4 (08:48→21:51)
[2018-04-03 09:48] LABS: BASO # 0.02 K/mm3 (0.0-2.0); BASO % 0.4 % (0.0-3.0); EOS # 0.3 (0.0-0.7); EOS % 4.8 % (1.5-5.0); GRAN # 3.3 (1.4-6.5); GRAN % 58.2 % (50.0-68.0); HEMOGLOBIN 9.3 g/dL (14.0-18.0); LYMPH # 1.4 (1.2-3.4); LYMPH % 24.4 % (22.0-35.0); MEAN CELL VOLUME 92.8 fl (80.0-105.0); MEAN CORPUSCULAR HEMOGLOBIN 33.7 pg (25.0-35.0); MEAN CORPUSCULAR HGB CONC 36.3 g/dl (31.0-37.0); MEAN PLATELET VOLUME 11.4 fl (7.0-11.0); MONO # 0.7 (0.1-0.6); MONO % 12.2 % (1.0-6.0); RBC 2.76 10^6/uL (3.5-6.1); RED CELL DISTRIBUTION WIDTH 16.6 % (11.5-14.5); WHITE BLOOD COUNT 5.7 10^3/uL (4.5-11.0)
[2018-04-03 09:59] LABS: ALBUMIN 3.7 g/dL (3.0-4.8); ALT/SGPT 32 U/L (7-56); AST/SGOT 27 U/L (17-59); BLOOD UREA NITROGEN 70 mg/dL (7-21); CALCIUM 9.2 mg/dL (8.4-10.5); GFR NON-AFRICAN AMERICAN 17; IRON 127 ug/dL (45-180); URIC ACID 13.6 mg/dL (3.5-8.5)
--- NOTE | 2018-04-03 10:00 | CARD ---
APPROVED REPORT Date of service: 04/02/2018 EKG Measurement Heart [id number] <Conclusion> Sinus rhythm with first degree AV block Nonspecific IVCD Cannot rule out Anterior infarct, age undetermined Abnormal ECG
[2018-04-03 10:09] LABS: % IRON SATURATION 39 % (20-55); TOTAL IRON BINDING CAPACITY 330 ug/dL (261-462)
[2018-04-03 10:10] LABS: TROPONIN I 0.05 ng/mL
[2018-04-03] MEDS ORDERED: Metoprolol Succinate 25 mg XL Tab PO STA (11:02)
--- NOTE | 2018-04-03 12:51 | CON ---
DATE: 04/03/2018 REASON FOR CONSULTATION: Acute kidney injury, dizziness, presyncope. HISTORY OF PRESENTING ILLNESS: A 73-year-old male known to us from outpatient followup. The patient presented to the emergency room yesterday because he went to the bathroom and then after he got up, he felt dizzy and lightheaded, and sat on the floor and was confused for a little while. He was brought to the emergency room. In the emergency room, he was found to be somewhat hypotensive, blood pressure was 116/58. His WBC count was found to be normal. His blood work showed an elevated BUN of 76 and a creatinine of 4. This is higher than his baseline. The patient denies any history of any fevers or chills. He denies any history of cough or shortness of breath. He does report diarrhea because of the lactulose that he takes. He reports that he often feels dizzy after he has a bowel movement. He also reports that his Lasix was recently increased last week from 20 mg daily to 40 mg daily. PAST MEDICAL AND SURGICAL HISTORY: NIDDM, hypertension, CAD, PTCA and stents x2, cirrhosis of the liver, chronic kidney disease stage IV, episode of acute kidney injury requiring dialysis, peripheral vascular disease, history of alcohol abuse, anemia of chronic kidney disease, history of hepatic encephalopathy. FAMILY HISTORY: Noncontributory. SOCIAL HISTORY: No smoking, no alcohol use, no IV drug abuse. ALLERGIES: NO KNOWN DRUG ALLERGIES. MEDICATIONS AT HOME: Brilinta, Ranexa 1000 b.i.d., ranitidine 150 b.i.d., Toprol XL 25, Victoza, Synthroid 88, lactulose 5 mg daily, insulin, aspirin. REVIEW OF SYSTEMS: All systems are reviewed, pertinent positives are mentioned in the history of presenting illness, rest unremarkable. PHYSICAL EXAMINATION: GENERAL: Elderly male, sitting in bed. VITAL SIGNS: Blood pressure 124/68, heart rate 67, respiratory rate 18, temperature 97.4. HEENT: Normocephalic, atraumatic, positive pallor. NECK: Supple, no JVD. LUNGS: Bilateral equal entry, bilateral equal expansion, no rales. CARDIAC: S1, S2, regular rate and rhythm, no murmur, no rub. ABDOMEN: Distended, obese, soft, nontender, bowel sounds present. EXTREMITIES: No lower extremity edema. INTAKE AND OUTPUT: 1305/675 LABORATORY DATA: WBC 5.7, hemoglobin 9.3, hematocrit 26, platelets 89. Sodium 135, potassium 5.2, chloride 105, CO2 of 19, BUN 70, creatinine 3.6, glucose 271, calcium 9.2, phosphorus 4.3, magnesium 2.4, uric acid 13.6. Iron saturation 39, iron 127, AST 27, ALT 32, albumin 3.7. Urinalysis, yellow, clear, pH 6, specific gravity 1025, protein negative, glucose negative, ketones negative. Urine toxicology negative. CURRENT MEDICATIONS: Brilinta, Ecotrin, lactulose 10 g daily, insulin, Victoza, Ranexa 1000 b.i.d., Synthroid, Toprol XL, the patient received normal saline at 75. ASSESSMENT: 1. Acute kidney injury superimposed on chronic kidney disease stage IV, prerenal azotemia suspect in the setting of recently increased Lasix from 20 mg to 40 mg. 2. Dizziness, lightheadedness, suspect orthostatic changes. 3. Non-insulin dependent diabetes mellitus. 4. Coronary artery disease, history of percutaneous coronary intervention and stents x2. 5. Cirrhosis of the liver. 6. History of hepatic encephalopathy. PLAN: 1. Discussed with the patient and will need to adjust Lasix. His Lasix was recently increased last week from 20 mg daily to 40 mg daily. Perhaps he will need 20 mg alternating with 40 mg. 2. Renal parameters are almost at baseline now. 3. Continue lactulose. 4. Push p.o. fluids. 5. No indication for renal replacement therapy. 6. Monitor vital signs in three positions. Selina Garcia MD
[2018-04-03] MEDS: Sodium Chloride 0.9% 1,000 ML IV SCH (15:00)
[2018-04-03 16:43] LABS: FOLATE > 20.0 ng/mL
[2018-04-03] MEDS: RANEXA 1000 MG PO SCH (17:52)
[2018-04-03] MEDS ORDERED: LIRAGLUTIDE 1.2 MG SC SCH (18:00)
--- NOTE | 2018-04-03 18:17 | PN ---
DATE: 04/03/2018 Addendum for initial consult dictated this morning. SUBJECTIVE: Orthostatic blood pressure was checked, found to be significant orthostatic hypotension. On lying down, the patient's blood pressure 140/80 and on standing 114, so 36 mm drop in blood pressure noted on standing. Probably, that could be the reason the patient had dizziness, near syncope because the patient was on increased dose of diuretic as well as the patient had diarrhea. PLAN: We will restart IV fluids 75 mL an 1 hour for 1 liter, also most recent echo review dated 01/25/2018, that showed normal LV size ejection fraction of 65%, trace aortic regurgitation, mild valvular aortic stenosis versus severe aortic sclerosis, [id number] mitral regurgitation, [id number] tricuspid regurgitation, RV systolic pressure of 37, [id number] pulmonary insufficiency. No pericardial effusion dated, 01/25/2018. So, the plan was the patient still with possible discharge. Since the patient is having orthostatic, we will give IV fluid and check blood work tomorrow. Thank you for providing us the opportunity in taking care of the patient, Andrew Tanner. Isabella Mcgregor MD
--- NOTE | 2018-04-03 18:32 | CARD ---
APPROVED REPORT Date of service: 04/03/2018 EKG Measurement Heart [id number] <Conclusion> Sinus rhythm with first degree AV block Nonspecific IVCD ST & T wave abnormality, consider lateral ischemia Abnormal ECG
--- NOTE | 2018-04-03 19:55 | CON ---
DATE: 04/03/2018 REASON FOR CONSULTATION: Cardiac evaluation, history of CAD, history of multiple stent, history of end-stage renal disease, off dialysis, admitted with dizziness, lightheaded and possible syncope. BRIEF CLINICAL HISTORY: This is a 73-year-old male with extensive history of coronary artery disease, extensive history of multiple stent , end-stage renal disease, was at one point on dialysis, off dialysis based on creatinine around 3 to 4, history of liver cirrhosis, hypertension, hyperlipidemia, came in to the emergency room with complaints of that patient feels dizzy while standing up and not sure possibly he passed out very briefly or did not pass out, not sure. Denies any chest pain, shortness of breath, any palpitation prior to the emergency room. Admitting hemoglobin 9.3. Admitting BUN 76 and creatinine 4.0. PAST MEDICAL HISTORY: Significant for extensive history of coronary artery disease, multiple stents, diabetes, hypertension, hyperlipidemia, end-stage renal disease, was at one point on dialysis, now off dialysis, recent history of rotablation of RCA at [facility], history of recent PTCA of LAD on 10/06/2017 and then the patient had PTCA with rotablation 10/20/2017 was done. RECENT CARDIAC WORKUP FOLLOWS: The patient had a last catheterization done on 10/24/2017 whereas patient had a stenting of the proximal RCA, plain balloon angioplasty of the mid RCA for in-stent stenosis and stent of the distal RCA with a JOANNA on 10/24/2017. Prior to that, patient had cardiac catheterization on 10/06/2017 where the stent of the mid LAD, drug-eluting stent was done and stenting of the proximal LAD was done, and prior to that, patient had rotablation of RCA was done at [facility] 08/31/2017 because of heavily calcified tortuous artery, history of CKD, at one point, the patient was on dialysis, now off dialysis, history of hyperkalemia on maintenance dose of lactulose. Last catheterization, ejection fraction 55%, end diastolic pressure was 15. Last echo dated 08/23/2017 that revealed ejection fraction 55%, mild valvular aortic stenosis, mitral regurgitation [id number], mild tricuspid regurgitation, RV systolic pressure 57. PRU test was done at one point and found to be resistant to Plavix. The patient is currently on Brilinta. SOCIAL HISTORY: Denies any smoking. Denies any history of alcohol abuse. CURRENT MEDICATIONS: The patient is taking at home vitamin B complex, Brilinta, Ranexa, ranitidine, nitroglycerin, metoprolol, levothyroxine, lactulose, insulin and aspirin. REVIEW OF SYSTEMS: As per HPI. PHYSICAL EXAMINATION VITAL SIGNS: Height of the patient is 5 feet 8 inches, weight of the patient 206 pounds, body mass index 30 kg/m2. Rest of the vitals: Temperature afebrile, heart rate 67, blood pressure 124/68. HEENT: PERRLA. Extraocular muscles intact. NECK: Supple. No carotid bruits or thyromegaly. CHEST: Clear to auscultation. HEART: S1 and S2 regular. ABDOMEN: Soft. EXTREMITIES: Clubbing and cyanosis negative. LABORATORY DATA: Blood workup: WBC 5.7, hemoglobin 9.3, hematocrit 25.6, and platelet count 89. Chemistry shows sodium 135, potassium 5.2, chloride 105, CO2 of 19, anion gap of 15, BUN 70, creatinine 3.6. IMPRESSION: A 73-year-old male with past medical history significant for extensive history of coronary artery disease, multiple stent, last catheterization of stent of distal right coronary artery and in-stent stenosis, percutaneous transluminal coronary angioplasty was done, prior to that the patient had rotablation of right coronary artery, prior to that the patient had percutaneous transluminal coronary angioplasty of left anterior descending done. Last echo shows preserved left ventricular function syncope, and history of end-stage renal disease, on dialysis. RECOMMENDATIONS: So far, troponin was negative. No complaint of chest pain, resume medication including Ranexa from home medication. We will follow closely. The patient admitted with worsening renal insufficiency, on hydration. Renal function is improving. We will get echo, if not done for the last six months. We will get lipid profile, TSH, hemoglobin A1c as well and resume all previous medications. We will also get orthostatic hypotension. Further recommendations during hospital course. We will follow with you. Thank you Dr. Reyes, for providing us the opportunity in taking care of the patient, Andrew Tanner. Isabella Mcgregor MD [facility] # [id number]
--- NOTE | 2018-04-04 00:25 | CP.PCM.PN ---
<Abdiel Johnson - Last Filed: 04/04/18 00:55> Subjective - Date & Time of Evaluation Date of Evaluation: 04/04/18 Time of Evaluation: 00:15 - Subjective Subjective: S: 73 y/o M c PMHx CAD, stent x 11, CHF, ESRD, no longer on HD, HTN, liver cirrhosis admitted for a syncope work up. Patient complains of pressure-like chest pain at 5/10 in severity. He states that the chest pain does not radiate anywhere. The chest pain resolved after given 2 sublingual doses of Nitroglycerin. Patient denies fevers, chills, shortness of breath, palpitations, diaphoresis, or abdominal pain. O: HEENT: PERRLA Lungs: CTA b/l Heart: RRR, S1, S2, systolic murmur Abdomen: soft, NT, ND A: Patient complains of pressure-like chest pain that resolved after 2 doses of 0.4 mg SL Nitroglycerin. Will rule out unstable angina, JERRY score: 3, moderate risk. P: - Reviewed TSH, free T4, and lipid panel: WNL - Cardiology on board, Dr. Connors - Stat EKG: Accelerated junctional rhythm, non-specific interventricular conduction delay - Repeat EKG in the morning - Trend troponins - CBC, CMP, Mg - Will continue to monitor Objective - Vital Signs/Intake and Output Vital Signs (last 24 hours): Temp Pulse Resp BP Pulse Ox 98.1 F 63 18 119/52 L 100 04/03/18 18:00 04/03/18 18:00 04/03/18 18:00 04/03/18 18:00 04/03/18 06:00 Intake and Output: 04/03/18 04/04/18 18:59 06:59 Intake Total 1140 300 Balance 1140 300 - Medications Medications: Current Medications Aspirin (Ecotrin) 81 mg PO DAILY [facility] Famotidine (Pepcid) 20 mg PO BID [facility] Last Admin: 04/03/18 21:52 Dose: 20 mg Sodium Chloride (Sodium Chloride 0.9%) 1,000 mls @ 75 mls/hr IV .[id number] [facility] Stop: 04/04/18 23:59 Last Admin: 04/03/18 15:00 Dose: 75 mls/hr Insulin Human Regular (Humulin R Low) 0 units SC ACHS [facility]; Protocol Last Admin: 04/03/18 21:51 Dose: Not Given Lactulose (Generlac) 10 gm ND DAILY [facility] Levothyroxine Sodium (Synthroid) 88 mcg PO DAILY [facility] Metoprolol Succinate (Toprol Xl) 25 mg PO DAILY [facility] Nitroglycerin (Nitrostat Sl Tab) 0.4 mg SL Q5M PRN PRN Reason: CHEST-PAIN Last Admin: 04/03/18 23:35 Dose: 0.4 mg Liraglutide [Victoza 3-Anuel] 1.2 Mg ( Home Med) 1.2 mg SC QPM [facility] Last Admin: 04/03/18 17:51 Dose: Not Given Ranexa 1,000 Mg ((Home Med)) 1,000 mg PO BID [facility] Last Admin: 04/03/18 17:52 Dose: Not Given Ticagrelor (Brilinta) 90 mg PO BID [facility] Last Admin: 04/03/18 17:51 Dose: 90 mg - Labs Labs: 04/03/18 09:35 04/03/18 09:35 PT 12.5 SECONDS (9.4-12.5) 04/02/18 11:50 INR 1.09 04/02/18 11:50 APTT 30.5 Seconds (25.1-36.5) 04/02/18 12:48 <Sangeeta Chaparro - Last Filed: 04/04/18 03:31> Objective - Vital Signs/Intake and Output Vital Signs (last 24 hours): Temp Pulse Resp BP Pulse Ox 97.6 F 71 20 122/69 100 04/04/18 00:01 04/04/18 02:00 04/04/18 00:01 04/04/18 00:01 04/04/18 00:01 Intake and Output: 04/03/18 04/04/18 18:59 06:59 Intake Total 1140 300 Balance 1140 300 - Medications Medications: Current Medications Aspirin (Ecotrin) 81 mg PO DAILY [facility] Famotidine (Pepcid) 20 mg PO BID [facility] Last Admin: 04/03/18 21:52 Dose: 20 mg Sodium Chloride (Sodium Chloride 0.9%) 1,000 mls @ 75 mls/hr IV .[id number] [facility] Stop: 04/04/18 23:59 Last Admin: 04/03/18 15:00 Dose: 75 mls/hr Insulin Human Regular (Humulin R Low) 0 units SC ACHS [facility]; Protocol Last Admin: 04/03/18 21:51 Dose: Not Given Lactulose (Generlac) 10 gm ND DAILY [facility] Levothyroxine Sodium (Synthroid) 88 mcg PO DAILY [facility] Metoprolol Succinate (Toprol Xl) 25 mg PO DAILY [facility] Nitroglycerin (Nitrostat Sl Tab) 0.4 mg SL Q5M PRN PRN Reason: CHEST-PAIN Last Admin: 04/03/18 23:35 Dose: 0.4 mg Liraglutide [Victoza 3-Anuel] 1.2 Mg ( Home Med) 1.2 mg SC QPM [facility] Last Admin: 04/03/18 17:51 Dose: Not Given Ranexa 1,000 Mg ((Home Med)) 1,000 mg PO BID [facility] Last Admin: 04/03/18 17:52 Dose: Not Given Ticagrelor (Brilinta) 90 mg PO BID [facility] Last Admin: 04/03/18 17:51 Dose: 90 mg - Labs Labs: 04/03/18 09:35 04/04/18 00:43 PT 12.5 SECONDS (9.4-12.5) 04/02/18 11:50 INR 1.09 04/02/18 11:50 APTT 30.5 Seconds (25.1-36.5) 04/02/18 12:48 Attending/Attestation - Attestation I have personally seen and examined this patient.: No I have fully participated in the care of the patient.: No I have reviewed all pertinent clinical information, including history, physical exam and plan: No
[2018-04-04 01:20] VITALS: RESP 20
[2018-04-04 01:21] LABS: TROPONIN I 0.04 ng/mL
[2018-04-04] MEDS: Sodium Chloride 0.9% 1,000 ML IV SCH (05:03)
[2018-04-04 06:39] LABS: BASO # 0.04 K/mm3 (0.0-2.0); BASO % 0.7 % (0.0-3.0); EOS # 0.3 (0.0-0.7); EOS % 5.1 % (1.5-5.0); GRAN # 3.36 (1.4-6.5); GRAN % 58.9 % (50.0-68.0); LYMPH # 1.2 (1.2-3.4); LYMPH % 20.8 % (22.0-35.0); MEAN CELL VOLUME 92.6 fl (80.0-105.0); MEAN CORPUSCULAR HEMOGLOBIN 33.5 pg (25.0-35.0); MEAN CORPUSCULAR HGB CONC 36.1 g/dl (31.0-37.0); MEAN PLATELET VOLUME 11.1 fl (7.0-11.0); MONO # 0.8 (0.1-0.6); MONO % 14.5 % (1.0-6.0); RBC 2.69 10^6/uL (3.5-6.1); RED CELL DISTRIBUTION WIDTH 16.2 % (11.5-14.5); WHITE BLOOD COUNT 5.7 10^3/uL (4.5-11.0)
[2018-04-04 06:51] LABS: CALCIUM 9.1 mg/dL (8.4-10.5)
[2018-04-04 06:52] LABS: TROPONIN I 0.05 ng/mL
--- NOTE | 2018-04-04 08:15 | CP.PCM.PN ---
Subjective - Date & Time of Evaluation Date of Evaluation: 04/04/18 Time of Evaluation: 06:30 - Subjective Subjective: Awake, alert, no distress, had an episode of chest pain last night Reason for consultation and follow up: Cardiac evaluation of near syncope, history of coronary artery disease with multiple stents Seen and examined by me and Dr. Mcgregor Objective - Vital Signs/Intake and Output Vital Signs (last 24 hours): Temp Pulse Resp BP Pulse Ox 99.9 F H 66 20 121/55 L 100 04/04/18 06:00 04/04/18 06:00 04/04/18 06:00 04/04/18 06:00 04/04/18 06:00 Intake and Output: 04/04/18 04/04/18 06:59 18:59 Intake Total 1680 Output Total 1100 Balance 580 - Medications Medications: Current Medications Aspirin (Ecotrin) 81 mg PO DAILY [facility] Famotidine (Pepcid) 20 mg PO BID [facility] Last Admin: 04/03/18 21:52 Dose: 20 mg Sodium Chloride (Sodium Chloride 0.9%) 1,000 mls @ 75 mls/hr IV .[id number] [facility] Stop: 04/04/18 23:59 Last Admin: 04/04/18 05:03 Dose: 75 mls/hr Insulin Human Regular (Humulin R Low) 0 units SC [facility]; Protocol Last Admin: 04/03/18 21:51 Dose: Not Given Lactulose (Generlac) 10 gm NC DAILY [facility] Levothyroxine Sodium (Synthroid) 88 mcg PO DAILY [facility] Metoprolol Succinate (Toprol Xl) 25 mg PO DAILY [facility] Nitroglycerin (Nitrostat Sl Tab) 0.4 mg SL Q5M PRN PRN Reason: CHEST-PAIN Last Admin: 04/03/18 23:35 Dose: 0.4 mg Liraglutide [Victoza 3-Anule] 1.2 Mg ( Home Med) 1.2 mg SC QPM [facility] Last Admin: 04/03/18 17:51 Dose: Not Given Ranexa 1,000 Mg ((Home Med)) 1,000 mg PO BID [facility] Last Admin: 04/03/18 17:52 Dose: Not Given Ticagrelor (Brilinta) 90 mg PO BID [facility] Last Admin: 04/03/18 17:51 Dose: 90 mg - Labs Labs: 04/04/18 06:15 04/04/18 06:15 PT 12.5 SECONDS (9.4-12.5) 04/02/18 11:50 INR 1.09 04/02/18 11:50 APTT 30.5 Seconds (25.1-36.5) 04/02/18 12:48 - Constitutional Appears: Non-toxic, No Acute Distress - Head Exam Head Exam: NORMAL INSPECTION, NORMOCEPHALIC - Eye Exam Eye Exam: Normal appearance Pupil Exam: NORMAL ACCOMODATION - ENT Exam ENT Exam: Mucous Membranes Moist, Normal Exam - Respiratory Exam Respiratory Exam: Clear to Ausculation Bilateral, NORMAL BREATHING PATTERN - Cardiovascular Exam Cardiovascular Exam: REGULAR RHYTHM, +S1, +S2 Additional comments: Telemetry NSR with 1st degree heart block denies chest pain now - GI/Abdominal Exam GI & Abdominal Exam: Soft, Normal Bowel Sounds - Extremities Exam Extremities Exam: Full ROM, Normal Capillary Refill - Neurological Exam Neurological Exam: Alert, Awake, Oriented x3 - Psychiatric Exam Psychiatric exam: Normal Affect, Normal Mood - Skin Skin Exam: Dry, Normal Color, Warm Assessment and Plan - Assessment and Plan (Free Text) Assessment: A 73 year old male who came in to the Er due to dizziness, near syncope. History of coronary artery disease with extensive history of multiple stents, end stage renal disease was at some point on hemodialysis, off hemodialysis now, baseline creatinine about 3-4. hypertnesion, liver cirrhosis,hyperlipidemia. Denies chest pain upon admission. Positive for orthostatic hypotension. IV fluids given. Last night had episode of chest pain with relief with Nitroglycerin sublingual. No EKG changes. Will treat mediaclly. Ask to bring Renexa, non formulary to [facility]. Chest pain free now. Plan: Episode of chest pain last night relieved with Nitro sublingual x 2 no EKG changes to bring Renexa medications, non formulary to [facility] Denies chest pain now Repeat orthostatic vital signs, if normal , possible discharge Continue IV fluids No further cardiac work up at this point Continue current treatment Continue current medications Will follow up Plan and treatment discussed with Dr. Mcgregor
[2018-04-04] MEDS ORDERED: Metoprolol Succinate 25 mg XL Tab PO SCH (10:00)
[2018-04-04] MEDS ORDERED: Lactulose 10 gm/15 ml (Rectal Use) PR SCH (10:00)
[2018-04-04] MEDS ORDERED: Levothyroxine 88 MCG TAB PO SCH (10:00)
[2018-04-04] MEDS: Insulin Reg-LOW-Coverage SC SCH ×2 (10:04→12:16)
[2018-04-04] MEDS: RANEXA 1000 MG PO SCH (10:05)
--- NOTE | 2018-04-04 10:20 | HP ---
DATE OF EXAM: 04/04/2018 HISTORY OF PRESENT ILLNESS: The patient is a 73-year-old male who was brought to the emergency room by his family after being confused and having a near syncopal episode at home. Apparently, the patient was up, spent a long time in the bathroom standing by the sink, was staring into space and as he tried to move, he collapsed to the floor. He was caught and held by his . There was no trauma in the fall. He was brought to the emergency room and he is evaluated and admitted. The patient is known to have a history of congestive heart failure, insulin-dependent diabetes mellitus, asbestosis, deep vein thrombosis, hypothyroidism, cirrhosis of the liver with ascites. He has chronic renal failure but has been doing well without dialysis for the past several months. He also has a history of coronary artery disease with multiple coronary stents. He is status post cardiac ablation for atrial fibrillation. He was last admitted in 01/2018 for syncope and chest pain. SOCIAL HISTORY: The patient is a former smoker. He is a nonalcoholic drinker. He is with children. ALLERGIES: HE HAS NO KNOWN MEDIAL ALLERGIES. MEDICATIONS: Medications at the time of admission included metoprolol 25 mg daily, NovoLog mix 70/30 25 units twice a day. He is on lactulose 15 mg daily, Victoza 1.2 mg subcutaneously daily. He has Nitrostat tablets 0.4 mg sublingually as needed. He is on vitamin B complex, Brilinta 90 mg twice a day, Synthroid 88 mcg daily, ranitidine 150 mg twice a day and Ranexa 1000 mg twice a day. REVIEW OF SYSTEMS: Otherwise unremarkable. The patient was seen in his office visits within the past week. He was doing well and ambulating well with a walker. PHYSICAL EXAMINATION: GENERAL: The patient is mildly obtunded. Examination of the head, eyes, ears, nose and Throat: Negative. The patient had reported seeing insects/spiders climbing on the wall prior to this hospitalization. These hallucination were at transient lasting only 2 or 3 seconds. However, there were several episodes prior to this hospitalization. NECK: Supple with no lymphadenopathy. No goiter. LUNGS: Clear to auscultation and percussion. HEART: Regular. ABDOMEN: Soft, nontender. EXTREMITIES: Free of cyanosis, clubbing or edema. LABORATORY STUDIES: Show the white blood cell count to be 5.7, hemoglobin and hematocrit are 9.3 and 25.6 respectively, platelet count is 89. Sodium is 135, potassium is 5.2, blood urea nitrogen is 70 and creatinine is 3.6. These renal functions are slightly elevated compared to the patient's baseline. Glucose is 271. His blood pressure is 124/68, heart rate is 67 beats per minute and he is afebrile. EKG shows sinus rhythm with first-degree AV block and nonspecific intraventricular conduction delay. The patient will be admitted. He will be rehydrated with IV fluids, will be asking his cross country/track and field coach, Dr. Mcgregor, and his physician extender, Dr. Dalton, and Dr. Garcia to evaluate the patient. The patient will be reevaluated in the morning. Jim Reyes MD
--- NOTE | 2018-04-04 11:45 | PN ---
DATE: 04/03/2018 SUBJECTIVE: The patient is a 73-year-old male who was admitted with near syncope and dehydration yesterday. The patient is known to have a history of coronary artery disease, chronic renal failure, congestive heart failure, status post PTCA many times, status post ablation for atrial fibrillation. He has hypothyroidism, insulin-dependent diabetes mellitus. The patient had some hallucinations of insects or small rodents running around his house, these hallucinatory episodes lasted only a few minutes each time. The patient is being seen by his nephrologists, Dr. Garcia and Dr. Dalton as well as his cardiologists, Dr. Connors and Dr. Mcgregor. He received IV fluids for increased BUN and creatinine above his baseline during his hospital stay. PHYSICAL EXAMINATION: GENERAL: When seen today, the patient is feeling much better. His family is at bedside. He is sitting up at the edge of the bed. He is awake, alert, and oriented. He is feeling well. He feels that these hallucinations of insects and mice may be a prodrome to worsening dehydration. MEDICATIONS: He states Dr. Mcgregor suggested he decrease his Lasix to 40 mg every other day alternating with 20 mg every other day. ASSESSMENT AND PLAN: He is feeling well. We are hoping to discharge the patient in the morning. The nursing staff told me the patient was slightly orthostatic when examined, that his blood pressure dropped approximately 10 points with a change from sitting to standing. We will continue with the intravenous fluids overnight, reevaluate the patient in the morning and consider discharge at that time. Jim Reyes MD
--- NOTE | 2018-04-04 13:09 | PN ---
DATE: 04/04/2018 REASON FOR CONSULTATION AND FOLLOWUP: Near syncope, history of multiple stents in the past, positive orthostatic hypotension. SUBJECTIVE: The patient feels better. No chest pain, had chest pain entirely. but now completely resolved. OBJECTIVE: GENERAL: Not in apparent distress, getting IV fluid, because yesterday the patient had orthostatic hypotension. VITAL SIGNS: Temperature afebrile, heart rate 60, blood pressure 120/55. HEENT: PERRLA. Extraocular muscles intact. NECK: Supple. No carotid bruits or thyromegaly. CHEST: Clear to auscultation. HEART: S1 and S2 regular. ABDOMEN: Soft. EXTREMITIES: Clubbing and cyanosis negative. LABORATORY DATA: Blood workup as follows; WBC 5.3, hemoglobin 9, hematocrit 24.9 and platelet count 84. Chemistry shows sodium 138, potassium 5.0, chloride 109, carbon dioxide 20, anion gap of 14, BUN of 62 and creatinine 3.1. Troponin 0.04, 0.05. History of 2 episodes of chest pain, but no evidence of acute PA. Troponin remains flat 0.04, 0.05, and 0.04 in face of chronic kidney disease with creatinine clearance 20 mL, troponin not significant. IMPRESSION: A 73-year-old male with the past medical history significant for coronary artery disease, status post multiple stents, admitted with near syncope, hypotension, orthostatic hypotension, acute kidney injury, chronic renal insufficiency, started an IV fluids. Yesterday, the patient . PLAN: Continue aggressive antianginal medication. I spoke to the . The patient is on Ranexa, but here is a nonformulary to bring the patient, will bring to the home. In the interim, continue Brilinta, continue aspirin, continue nitroglycerin p.r.n., continue Nitro paste and continue IV fluids. We will check orthostatic again. If the patient remains orthostatic, we will discontinue telemetry and possible discharge home. Discussed with the nurse, taking care. Discussed with the . Thank you Dr. Reyes, for providing us the opportunity in taking care of the patient, Ciro. We will follow with you. Isabella Mcgregor MD
[2018-04-04 13:53] VITALS: BP 109/55; PULSE 69; TEMP 98; O2SAT 99
--- NOTE | 2018-04-04 20:07 | CARD ---
APPROVED REPORT Date of service: 04/03/2018 EKG Measurement Heart [id number] <Conclusion> Sinus rhythm with first degree AV block Nonspecific IVCD ST & T wave abnormality, consider lateral ischemia Abnormal ECG
--- NOTE | 2018-04-04 23:07 | PN ---
DATE: 04/04/2018 SUBJECTIVE: The patient is seen sitting in bed. He is awake. He is alert. He is comfortable. PHYSICAL EXAMINATION: GENERAL: Elderly male, sitting in bed. VITAL SIGNS: Blood pressure 109/55, heart rate 69, respiratory rate 20. Afebrile. NECK: Supple, no JVD. LUNGS: Bilateral equal entry. Bilateral equal expansion. CARDIAC: S1 and S2. Regular rate and rhythm. No murmur. No rub. ABDOMEN: Obese, distended, soft, nontender. Bowel sounds present. EXTREMITIES: No lower extremity edema. INTAKE AND OUTPUT: 2820/1100. LABORATORY DATA: WBC 5.7, hemoglobin 9, hematocrit 25, platelets 84. Sodium 138, potassium 5.1, chloride 109, CO2 of 20, BUN 63, creatinine 3.1, glucose 221, calcium 9.1, phosphorus 3.9, magnesium 2.3. MEDICATIONS: Brilinta, Ecotrin, lactulose, Victoza, Pepcid, Ranexa 1000 mg b.i.d., normal saline at 75 mL, Synthroid, Toprol-XL. ASSESSMENT AND PLAN: 1. Acute kidney injury superimposed on chronic kidney disease stage IV, resolved acute kidney injury. 2. Hyperkalemia secondary to severe hyperglycemia. 3. Hyperglycemia. 4. Noninsulin-dependent diabetes mellitus. 5. Hypotension. 6. Cirrhosis of the liver. 7. Coronary artery disease, history of percutaneous transluminal coronary angioplasty and stents. PLAN: 1. Discontinue IV fluids. 2. Continue insulin coverage. 3. Continue antianginal medications. 4. Continue lactulose. 5. No objection to discharge. Selina Garcia MD
--- NOTE | 2018-04-04 23:25 | CARD ---
APPROVED REPORT Date of service: 04/04/2018 EKG Measurement Heart [id number] <Conclusion> Accelerated Junctional rhythm Diffuse non diagnostic ST & T wave abnormalities Prolonged QT Abnormal ECG
== END 2018-04-04 14:45 | disposition home or self-care (01) | DRG 683 ==
LOC: ED 11:37 → ERH 13:28 → 2RNO 22:01
PROVIDERS: ADMIT Internal Medicine; ATTEND Internal Medicine
DX: N17.9 Acute kidney failure, unspecified (principal); E72.20 Disorder of urea cycle metabolism, unspecified; I13.0 Hypertensive heart and chronic kidney disease with heart failure and stage 1 through stage 4 chronic kidney disease, or unspecified chronic kidney disease; N18.4 Chronic kidney disease, stage 4 (severe); I95.1 Orthostatic hypotension; E86.0 Dehydration; I25.10 Atherosclerotic heart disease of native coronary artery without angina pectoris; K74.60 Unspecified cirrhosis of liver; J44.9 Chronic obstructive pulmonary disease, unspecified; E03.9 Hypothyroidism, unspecified; E10.22 Type 1 diabetes mellitus with diabetic chronic kidney disease; D63.1 Anemia in chronic kidney disease; E87.5 Hyperkalemia; E10.65 Type 1 diabetes mellitus with hyperglycemia; E10.51 Type 1 diabetes mellitus with diabetic peripheral angiopathy without gangrene; I50.9 Heart failure, unspecified; I08.3 Combined rheumatic disorders of mitral, aortic and tricuspid valves; Z79.02 Long term (current) use of antithrombotics/antiplatelets; Z79.890 Hormone replacement therapy; Z95.5 Presence of coronary angioplasty implant and graft; Z96.653 Presence of artificial knee joint, bilateral; Z87.891 Personal history of nicotine dependence

== ENCOUNTER 2018-05-07 19:09 | Inpatient (IN) | payer MEDICARE, OTHER ==
[2018-05-07 19:09] VITALS: BMI 27.6
[2018-05-07] MEDS ORDERED: Sodium Chloride 0.9% 500 ML IV STA (20:18)
[2018-05-07 21:15] LABS: BASO # 0.02 K/mm3 (0.0-2.0); BASO % 0.4 % (0.0-3.0); EOS # 0.2 (0.0-0.7); EOS % 3.5 % (1.5-5.0); HEMOGLOBIN 9.5 g/dL (14.0-18.0); LYMPH # 0.8 (1.2-3.4); LYMPH % 15.9 % (22.0-35.0); MEAN CORPUSCULAR HEMOGLOBIN 33.6 pg (25.0-35.0); MEAN CORPUSCULAR HGB CONC 35.7 g/dl (31.0-37.0); MEAN PLATELET VOLUME 10.2 fl (7.0-11.0); MONO # 0.7 (0.1-0.6); RBC 2.83 10^6/uL (3.5-6.1); RED CELL DISTRIBUTION WIDTH 15.8 % (11.5-14.5); WHITE BLOOD COUNT 5.2 10^3/uL (4.5-11.0)
[2018-05-07 21:19] LABS: VENOUS BLOOD GAS PO2 23 mm/Hg (30-55)
[2018-05-07 21:25] LABS: CALCIUM 9.6 mg/dL (8.4-10.5)
[2018-05-07 21:35] LABS: TROPONIN I 0.02 ng/mL
--- NOTE | 2018-05-08 00:05 | ED PDOC ---
Arrival/HPI <RobiManpreet - Last Filed: 05/08/18 00:24> - General Historian: Patient, Family - History of Present Illness Narrative History of Present Illness (Text): Andrew Tanner is a 73 year old male, whose past medical history includes CHF, CAD with multiple cardiac stents, and renal insufficiency, who presents to the emergency department today with changes in mental status and episodes of vomiting for the past 1.5 days. Patient states he just feels fatigued and denies any abdominal pain, chest pain, shortness of breath, headache, or trauma/injury. Family states he takes Lactulose for cirrhosis and did not take his dose today due to vomiting. Family states he has had altered mental status in the past due to dehydration and are concerned he may be dehydrated again. Symptom Onset: Gradual Symptom Course: Unchanged Activities at Onset: Light Context: Home <Burton Hallcam Billingsley - Last Filed: 05/08/18 01:20> - General Chief Complaint: GI Problem Time Seen by Provider: 05/07/18 19:56 Past Medical History - Provider Review Nursing Documentation Reviewed: Yes - Travel History Have you recently traveled outside [place] w/in the past 3 mons?: No - Infectious Disease Hx of Infectious Diseases: None - Tetanus Immunization Tetanus Immunization: Unknown - Cardiac Hx Angina: Yes Hx Cardiac Arrhythmia: Yes Hx Congestive Heart Failure: Yes Hx Hypertension: Yes Hx Peripheral Edema: Yes Other/Comment: 11 Cardiac stents - Pulmonary Hx Respiratory Disorders: Yes Hx Chronic Obstructive Pulmonary Disease (COPD): Yes - Neurological Hx Neurological Disorder: No - HEENT Hx HEENT Disorder: Yes (glasses) - Renal Hx Renal Disorder: Yes Hx Renal Failure: Yes (Pt not on dialysis since may 2017) - Endocrine/Metabolic Hx Endocrine Disorders: Yes Hx Diabetes Mellitus Type 1: Yes Hx Hypothyroidism: Yes - Hematological/Oncological Hx Blood Disorders: Yes Hx Cirrhosis: Yes (liver) - Integumentary Hx Dermatological Disorder: No - Musculoskeletal/Rheumatological Hx Falls: No - Gastrointestinal Hx Gastrointestinal Disorders: No - Genitourinary/Gynecological Hx Genitourinary Disorders: No - Psychiatric Hx Emotional Abuse: No Hx Physical Abuse: No Hx Substance Use: No - Surgical History Hx Cardiac Catheterization: Yes Hx Cholecystectomy: Yes Hx Coronary Stent: Yes (11 stents as per patient) Hx Musculoskeletal Surgery: Yes (B/L total knee replacement) - Anesthesia Hx Anesthesia: Yes Hx Anesthesia Reactions: No Hx Malignant Hyperthermia: No - Suicidal Assessment Feels Threatened In Home Enviroment: No <Janel Hall - Last Filed: 05/08/18 01:20> Family/Social History - Physician Review Nursing Documentation Reviewed: Yes Family/Social History: Unknown Family HX Smoking Status: Former Smoker Hx Alcohol Use: Yes (former) Hx Substance Use: No <Janel Hall - Last Filed: 05/08/18 01:20> Allergies/Home Meds <Manpreet Powell - Last Filed: 05/08/18 00:24> <Janel Hall - Last Filed: 05/08/18 01:20> Allergies/Adverse Reactions: Allergies No Known Allergies Allergy (Verified 05/07/18 19:43) Home Medications: Home Meds Medication Instructions Recorded Confirmed Metoprolol Succinate XL [Toprol XL] 25 mg PO DAILY 02/17/17 05/07/18 Insulin Aspart Prot/Insuln Asp 25 unit SC 0700,1700 03/12/17 05/07/18 [Novolog Mix 70-30 Vial] Lactulose [Generlac] 15 ml PO DAILY 04/19/17 05/07/18 Liraglutide [Victoza 3-Anuel] 1.2 mg SC QPM 07/21/17 05/07/18 Nitroglycerin [Nitrostat] 0.4 mg SL PRN PRN 07/21/17 05/07/18 Vitamin B Complex [Super B-50 1 tab PO DAILY 07/21/17 05/07/18 Complex] Ticagrelor [Brilinta] 90 mg PO BID 10/06/17 05/07/18 Levothyroxine [Synthroid] 88 mcg PO DAILY 10/20/17 05/07/18 Ranitidine HCl [Acid Touch Up Worker 150] 150 mg PO BID 10/20/17 05/07/18 Ranolazine [Ranexa] 1,000 mg PO BID 10/20/17 05/07/18 Isosorbide Dinitrate 30 mg PO DAILY 05/07/18 05/07/18 Metolazone 5 mg PO DAILY 05/07/18 05/07/18 Review of Systems - Physician Review All systems were reviewed & negative as marked: Yes - Review of Systems Constitutional: Fatigue. absent: Fevers Respiratory: Normal. absent: SOB, Cough Cardiovascular: Normal. absent: Chest Pain, Palpitations Gastrointestinal: Vomiting. absent: Abdominal Pain, Constipation, Diarrhea Genitourinary Male: absent: Dysuria, Frequency, Hematuria Musculoskeletal: absent: Arthralgias, Back Pain, Neck Pain Skin: absent: Rash Neurological: Other (+AMS). absent: Headache, Dizziness Psychiatric: absent: Anxiety, Depression <Janel Hall - Last Filed: 05/08/18 01:20> Physical Exam Vital Signs Temp Pulse Resp BP Pulse Ox 05/07/18 22:30 62 17 101/55 L 100 05/07/18 19:40 97.6 F 67 18 106/66 100 <Manpreet Powell - Last Filed: 05/08/18 00:24> Vital Signs Reviewed: Yes Vital Signs Temp Pulse Resp BP Pulse Ox 05/07/18 22:30 62 17 101/55 L 100 05/07/18 19:40 97.6 F 67 18 106/66 100 Temperature: Afebrile Blood Pressure: Normal Pulse: Regular Respiratory Rate: Normal Appearance: Positive for: Well-Appearing, Non-Toxic, Comfortable Pain Distress: None Mental Status: Positive for: other (Alert and oriented x 1 (person)) - Systems Exam Head: Present: Atraumatic, Normocephalic Pupils: Present: PERRL Extroacular Muscles: Present: EOMI Conjunctiva: Present: Normal Mouth: Present: Moist Mucous Membranes Neck: Present: Normal Range of Motion Respiratory/Chest: Present: Clear to Auscultation, Good Air Exchange. No: Respiratory Distress, Accessory Muscle Use Cardiovascular: Present: Regular Rate and Rhythm, Normal S1, S2. No: Murmurs Abdomen: No: Tenderness, Distention, Peritoneal Signs, Rebound, Guarding Back: Present: Normal Inspection Upper Extremity: Present: Normal Inspection. No: Cyanosis, Edema Lower Extremity: Present: Normal Inspection. No: Edema (No pitting edema) Neurological: Present: GCS=15, Speech Normal Skin: Present: Warm, Dry, Normal Color. No: Rashes Psychiatric: Present: Alert. No: Oriented x 3 (Oriened to person only) <Janel Hall - Last Filed: 05/08/18 01:20> Medical Decision Making - Lab Interpretations Lab Results: pO2 23 mm/Hg (30-55) L 05/07/18 21:06 VBG pH 7.40 (7.32-7.43) 05/07/18 21:06 VBG pCO2 36.0 (40-60) L 05/07/18 21:06 VBG HCO3 22.3 mmol/l (21-28) 05/07/18 21:06 VBG Total CO2 23.4 mmol.L (22-28) 05/07/18 21:06 VBG O2 Sat (Calc) 49.1 % (40-65) 05/07/18 21:06 VBG Base Excess -2.0 mmol/L (0.0-2.0) L 05/07/18 21:06 VBG Potassium 4.6 mmol/L (3.6-5.2) 05/07/18 21:06 Sodium 137.0 mmol/L (132-148) 05/07/18 21:06 Chloride 107.0 mmol/L (98-107) 05/07/18 21:06 Glucose 146 mg/dl (75-110) H 05/07/18 21:06 Lactate 1.5 mmol/L (0.7-2.1) 05/07/18 21:06 FiO2 21.0 % 05/07/18 21:06 Troponin I 0.02 ng/mL D 05/07/18 20:50 Total Bilirubin 0.9 mg/dL (0.2-1.3) 05/07/18 20:50 AST 33 U/L (17-59) 05/07/18 20:50 ALT 9 U/L (7-56) 05/07/18 20:50 Alkaline Phosphatase 130 U/L (38-126) H 05/07/18 20:50 Total Protein 8.0 g/dL (5.8-8.3) 05/07/18 20:50 Albumin 4.0 g/dL (3.0-4.8) 05/07/18 20:50 Globulin 4.0 gm/dL 05/07/18 20:50 Albumin/Globulin Ratio 1.0 (1.1-1.8) L 05/07/18 20:50 - RAD Interpretation Radiology Orders: 05/07/18 20:16 CHEST PORTABLE [RAD] Stat 05/07/18 20:17 HEAD W/O CONTRAST [CT] Stat - Medication Orders Current Medication Orders: Discontinued Medications Sodium Chloride (Sodium Chloride 0.9%) 500 mls @ 999 mls/hr IV .Q31M STA Stop: 05/07/18 20:48 Last Admin: 05/07/18 21:01 Dose: 999 mls/hr eMAR Start Stop Document 05/07/18 21:01 (Rec: 05/07/18 21:01 [id number]) Intravenous Solution Start Date 05/07/18 Start Time 21:01 Lactulose (Enulose) 20 gm PO ONCE STA Stop: 05/07/18 22:56 Last Admin: 05/07/18 23:14 Dose: 20 gm Ondansetron HCl (Zofran Inj) 4 mg IVP STAT STA Stop: 05/07/18 20:19 Last Admin: 05/07/18 21:00 Dose: 4 mg IVP Administration Document 05/07/18 21:00 EB (Rec: 05/07/18 21:00 [id number]) Charges for Administration # of IVP Administrations 1 <Manpreet Powell - Last Filed: 05/08/18 00:24> ED Course and Treatment: Impression: 73 year old male complaining changes in mental status, vomiting, and fatigue. Plan: -- CT Head w/o contrast -- EKG -- CXR -- CBC, CMP, urine cultures -- VBG -- Ammonia level -- Cardiac enzymes -- Urinalysis, urine cultures -- IV fluids -- Lactulose -- Zofran -- Reassess and disposition Prior Visits: Notes and results from previous visits were reviewed. Progress Notes: patient given a 500 mL normal saline bolus patient reassessment: Patient resting comfortably. Alert and oriented 1 but states that he feels better. Again denies chest pain or shortness of breath. Denies abdominal pain CBC hemoglobin 9.5 CMP BUN 70 creatinine 4.5 glucose 141 Ammonia level is 60 troponin 0.02 lactic acid within normal limits EKG shows sinus rhythm with first-degree AV block at [address] elevations UA no leukocytes Chest x-ray no effusion, no cardiomegaly, no infiltrate; asbestos like pleural disease noted head CT:FINDINGS: BRAIN No acute intraparenchymal hemorrhage. No mass lesion. No CT evidence for acute territorial infarct. No midline shift or extra-axial collections. Moderate age appropriate diffuse cerebral/cerebellar atrophy noted. There are bilateral periventricular and subcortical white matter hypolucencies compatible with mild chronic microvascular disease. VENTRICLES: No hydrocephalus. VASCULAR: Dense atherosclerotic vascular plaquing seen within the right vertebral artery and bilateral carotid siphons. ORBITS: The orbits are unremarkable. SINUSES AND MASTOIDS: The paranasal sinuses and mastoid air cells are clear. BONES: No fracture. SOFT TISSUES: Unremarkable. IMPRESSION: 1. No acute intracranial abnormality. 2. Moderate age-appropriate diffuse cerebral/cerebellar atrophy. 3. Mild chronic microvascular disease. 4. Atherosclerotic vascular plaquing as described above. 5. No significant interval change. Electronically signed on May 07, 2018 11:43:34 PM EST by: Andrew Beal M.D., SHONA Certified By [facility] [employer] Trained MRI and CT Specialist lactulose 20 mg given by mouth pt seen and evaluated by dr. powell. Case was discussed in depth with Dr. Martha Reyes. accepts admission. advised giving NS at 80cc/hr. All results discussed with family and patient in depth. impression; AMS, Elevated ammonia, renal insufficiency, hypotension admit tele - Lab Interpretations Lab Results: pO2 23 mm/Hg (30-55) L 05/07/18 21:06 VBG pH 7.40 (7.32-7.43) 05/07/18 21:06 VBG pCO2 36.0 (40-60) L 05/07/18 21:06 VBG HCO3 22.3 mmol/l (21-28) 05/07/18 21:06 VBG Total CO2 23.4 mmol.L (22-28) 05/07/18 21:06 VBG O2 Sat (Calc) 49.1 % (40-65) 05/07/18 21:06 VBG Base Excess -2.0 mmol/L (0.0-2.0) L 05/07/18 21:06 VBG Potassium 4.6 mmol/L (3.6-5.2) 05/07/18 21:06 Sodium 137.0 mmol/L (132-148) 05/07/18 21:06 Chloride 107.0 mmol/L (98-107) 05/07/18 21:06 Glucose 146 mg/dl (75-110) H 05/07/18 21:06 Lactate 1.5 mmol/L (0.7-2.1) 05/07/18 21:06 FiO2 21.0 % 05/07/18 21:06 Troponin I 0.02 ng/mL D 05/07/18 20:50 Total Bilirubin 0.9 mg/dL (0.2-1.3) 05/07/18 20:50 AST 33 U/L (17-59) 05/07/18 20:50 ALT 9 U/L (7-56) 05/07/18 20:50 Alkaline Phosphatase 130 U/L (38-126) H 05/07/18 20:50 Total Protein 8.0 g/dL (5.8-8.3) 05/07/18 20:50 Albumin 4.0 g/dL (3.0-4.8) 05/07/18 20:50 Globulin 4.0 gm/dL 05/07/18 20:50 Albumin/Globulin Ratio 1.0 (1.1-1.8) L 05/07/18 20:50 - RAD Interpretation Radiology Orders: 05/07/18 20:16 CHEST PORTABLE [RAD] Stat 05/07/18 20:17 HEAD W/O CONTRAST [CT] Stat - Medication Orders Current Medication Orders: Discontinued Medications Sodium Chloride (Sodium Chloride 0.9%) 500 mls @ 999 mls/hr IV .Q31M STA Stop: 05/07/18 20:48 Last Admin: 05/07/18 21:01 Dose: 999 mls/hr eMAR Start Stop Document 05/07/18 21:01 (Rec: 05/07/18 21:01 [id number]) Intravenous Solution Start Date 05/07/18 Start Time 21:01 Lactulose (Enulose) 20 gm PO ONCE STA Stop: 05/07/18 22:56 Last Admin: 05/07/18 23:14 Dose: 20 gm Ondansetron HCl (Zofran Inj) 4 mg IVP STAT STA Stop: 05/07/18 20:19 Last Admin: 05/07/18 21:00 Dose: 4 mg IVP Administration Document 05/07/18 21:00 (Rec: 05/07/18 21:00 [id number]) Charges for Administration # of IVP Administrations 1 <Janel Hall T - Last Filed: 05/08/18 01:20> - PA / BANQUET STEWARD / Resident Statement MD/DO has reviewed & agrees with the documentation as recorded. MD/DO has examined the patient and agrees with the treatment plan. <Manpreet Powell - Last Filed: 05/08/18 00:24> - Scribe Statement The provider has reviewed the documentation as recorded by the Serjio Recio Provider Scribe Attestation: All medical record entries made by the Scribe were at my direction and personally dictated by me. I have reviewed the chart and agree that the record accurately reflects my personal performance of the history, physical exam, medical decision making, and the department course for this patient. I have also personally directed, reviewed, and agree with the discharge instructions and disposition. <Janel Hall - Last Filed: 05/08/18 01:20> Disposition/Present on Arrival <Manpreet Powell - Last Filed: 05/08/18 00:24> - Present on Arrival Any Indicators Present on Arrival: No History of DVT/PE: No History of Uncontrolled Diabetes: No Urinary Catheter: No History of Decub. Ulcer: No History Surgical Site Infection Following: None - Disposition Have Diagnosis and Disposition been Completed?: Yes Disposition Time: 22:20 Patient Plan: Admission, Telemetry <Janel Hall - Last Filed: 05/08/18 01:20> - Disposition Diagnosis: Renal insufficiency, Weakness, Altered mental status, Hyperammonemia Disposition: HOSPITALIZED Condition: FAIR
[2018-05-08 00:35] LABS: URINE APPEARANCE CLEAR (CLEAR); URINE BILIRUBIN NEGATIVE (NEGATIVE); URINE BLOOD NEGATIVE (NEGATIVE); URINE COLOR YELLOW (YELLOW); URINE GLUCOSE (UA) NEGATIVE (NEGATIVE); URINE LEUKOCYTE ESTERASE NEGATIVE Leu/uL (NEGATIVE); URINE PROTEIN TRACE mg/dL (<30 mg/dL); URINE UROBILINOGEN 0.2 E.U./dL (<1 E.U./dL)
[2018-05-08 00:48] LABS: URINE EPITHELIAL CELLS 0 - 2 /hpf (0-5); URINE RBC 0 - 2 /hpf (0-2); URINE WBC 0 - 2 /hpf (0-6)
[2018-05-08] MEDS: Sodium Chloride 0.9% 500 ML IV SCH ×2 (01:25→10:16)
--- NOTE | 2018-05-08 09:15 | CARD ---
APPROVED REPORT Date of service: 05/07/2018 EKG Measurement Heart [id number] <Conclusion> Sinus rhythm with 1st degree AV block Poor R wave progression in Precordial leads Possible Anterior infarct, age undetermined Abnormal ECG
[2018-05-08] MEDS: Levothyroxine 88 MCG TAB PO SCH (10:14)
[2018-05-08 10:50] LABS: ALBUMIN 3.9 g/dL (3.0-4.8); CALCIUM 9.4 mg/dL (8.4-10.5)
[2018-05-08 10:55] LABS: TROPONIN I 0.02 ng/mL
--- NOTE | 2018-05-08 11:04 | CT ---
Date of service: 05/07/2018 PROCEDURE: CT HEAD WITHOUT CONTRAST. HISTORY: AMS COMPARISON: Comparison made with CT brain dated 02/19/2018 TECHNIQUE: Axial computed tomography images were obtained through the head/brain without intravenous contrast. Radiation dose: Total exam DLP = 1030.76 mGy-cm. This CT exam was performed using one or more of the following dose reduction techniques: Automated exposure control, adjustment of the mA and/or kV according to patient size, and/or use of iterative reconstruction technique. FINDINGS: HEMORRHAGE: No intracranial hemorrhage. BRAIN: Mild chronic periventricular white matter ischemic changes. Moderate generalized volume loss No obvious parenchymal nor extra-axial masses or collections seen on this noncontrast exam. Vascular calcifications both carotid siphons and right vertebral artery. VENTRICLES: No obstructive hydrocephalus. CALVARIUM: There are no acute calvarial fractures. PARANASAL SINUSES: Minimal mucosal thickening seen within a few ethmoid air cells extending superiorly into the inferior margin the hypoplastic frontal sinus.. MASTOID AIR CELLS: Unremarkable as visualized. No inflammatory changes. OTHER FINDINGS: Changes of bilateral cataract surgery. IMPRESSION: Normal CT of the Head.
[2018-05-08] MEDS: Non Formulary Medication (Ranolazine [Ranexa] 1,000 MG) PO SCH ×2 (11:12→17:31)
--- NOTE | 2018-05-08 11:45 | CP.PCM.APN ---
Subjective - Date & Time of Evaluation Date of Evaluation: 05/08/18 Time of Evaluation: 09:30 - Subjective Subjective: pt seen and examined at bedside with rn for c/o chest pain , labs reordered and ekg ordered. pt appears to be in no distress, family at his bedside, pt denies sob or radiation called pmd, ordered ekg and trop as well as SL nitro , spoke to Dr Wasserman re : consult needed for cp Review of Systems - Cardiovascular Cardiovascular: Chest Pain, Chest Pain at Rest Objective - Vital Signs/Intake and Output Vital Signs (last 24 hours): Temp Pulse Resp BP Pulse Ox 98.2 F 75 20 134/70 99 05/08/18 06:00 05/08/18 11:18 05/08/18 10:24 05/08/18 11:18 05/08/18 10:24 Intake and Output: 05/08/18 05/08/18 06:59 18:59 Intake Total 0 400 Balance 0 400 - Medications Medications: Current Medications Aspirin (Ecotrin) 81 mg PO DAILY [facility] Last Admin: 05/08/18 10:14 Dose: 81 mg Famotidine (Pepcid) 40 mg PO HS [facility] Sodium Chloride (Sodium Chloride 0.9%) 500 mls @ 80 mls/hr IV .Q6H15M [facility] Last Admin: 05/08/18 10:16 Dose: 80 mls/hr Lactulose (Enulose) 20 gm PO DAILY [facility] Levothyroxine Sodium (Synthroid) 88 mcg PO DAILY [facility] Last Admin: 05/08/18 10:14 Dose: 88 mcg Metoprolol Succinate (Toprol Xl) 25 mg PO DAILY [facility] Non-Formulary Medication (Ranolazine [Ranexa]) 1,000 mg PO BID [facility] Last Admin: 05/08/18 11:12 Dose: 1,000 mg Ticagrelor (Brilinta) 90 mg PO BID [facility] Last Admin: 05/08/18 10:14 Dose: 90 mg - Labs Labs: 05/07/18 20:50 05/08/18 10:20 - Constitutional Appears: No Acute Distress - Head Exam Head Exam: NORMOCEPHALIC - Eye Exam Eye Exam: Normal appearance Pupil Exam: NORMAL ACCOMODATION - ENT Exam ENT Exam: Normal Exam - Neck Exam Neck Exam: Normal Inspection - Respiratory Exam Respiratory Exam: NORMAL BREATHING PATTERN - Cardiovascular Exam Cardiovascular Exam: +S1, +S2 - GI/Abdominal Exam GI & Abdominal Exam: Soft, Normal Bowel Sounds - Extremities Exam Extremities Exam: Full ROM, Normal Capillary Refill - Neurological Exam Neurological Exam: Awake - Psychiatric Exam Psychiatric exam: Normal Affect - Skin Skin Exam: Dry, Intact Assessment and Plan - Assessment and Plan (Free Text) Plan: ITS Impressions Head CT 05/07/18 20:17 IMPRESSION: Normal CT of the Head. 73 yr old white male with pmh sif gor cad with stents, chf, RI, cirrhosis, amd and dehydration in the past who was admitted for evalaution after vomiting at home and episode of AMS. Pt was found to have elevated ammonia in the 60s which was treated with lactulose. this morning pt c/o chest pain i reordered pt meds, stat ekg , trop, called Dr Wasserman on consult and left vm for PMD re : pt condition All Active Problems Altered mental status (Acute) Hyperammonemia (Acute) Renal insufficiency (Acute) Weakness (Acute) CHF (congestive heart failure) (Acute) Cellulitis of lower leg (Acute) Chest pain (Acute) Dehydration (Acute) ESRD (end stage renal disease) on dialysis (Acute) Hyperglycemia (Acute) Metabolic encephalopathy (Acute) Near syncope (Acute) will continue to monitor clinical course BPCI/TIC - BPCIA/TIC Educated pt/family on BPCIA/CIR/Med to Bed Programs: N/A Flyers given, including [facility] Beneficiary letter: N/A Pt/family verbalized understanding & agreed to program: N/A
--- NOTE | 2018-05-08 12:00 | CARD ---
APPROVED REPORT Date of service: 05/08/2018 EKG Measurement Heart [id number] <Conclusion> Accelerated Junctional rhythm with underlying Atrial Fibrillation. Left axis deviation Incomplete left bundle branch block. ST-T Changes
[2018-05-08] MEDS: Sodium Chloride 0.9% 1,000 ML IV SCH (12:35)
--- NOTE | 2018-05-08 13:02 | RAD ---
Date of service: 05/07/2018 HISTORY: AMS COMPARISON: No prior. FINDINGS: LUNGS: No active pulmonary disease. PLEURA: Scattered calcified pleural plaques are again seen consistent with prior exposure to asbestos. Clinical correlation recommended. CARDIOVASCULAR: Minor aortic there atherosclerotic calcification present. Heart appears borderline/mildly enlarged. No pulmonary vascular congestion. OSSEOUS STRUCTURES: No significant abnormalities. VISUALIZED UPPER ABDOMEN: Metallic clips right upper quadrant of the abdomen consistent prior cholecystectomy OTHER FINDINGS: None. IMPRESSION: No acute infiltrates. Findings consistent prior exposure to asbestos as detailed above.
[2018-05-08] MEDS: Metoprolol Succinate 25 mg XL Tab PO SCH (13:08)
[2018-05-08] MEDS: Pantoprazole 40mg/100mL NS 40 MG/100 ML BAG IVPB SCH ×4 (13:09→21:40)
[2018-05-08 15:30] LABS: IRON 124 ug/dL (45-180)
[2018-05-08 15:39] LABS: % IRON SATURATION 37 % (20-55); TOTAL IRON BINDING CAPACITY 333 ug/dL (261-462)
[2018-05-08 16:04] LABS: INR 1.3; PROTHROMBIN TIME 14.4 SECONDS (9.4-12.5)
[2018-05-08] MEDS: Insulin Lispro (humaLOG) LOW Coverage SC SCH ×2 (17:30→21:33)
[2018-05-08] MEDS: Insulin Lispro (humaLOG) MIX 75/25(10 ml) SC SCH (17:31)
--- NOTE | 2018-05-08 19:22 | CP.PCM.PN ---
Subjective - Date & Time of Evaluation Date of Evaluation: 05/08/18 Time of Evaluation: 09:00 - Subjective Subjective: PGY5 GI Initial Consult Andrew Tanner is a 72-year-old male with a history of end-stage renal disease on HD?, hypertension, coronary artery disease, status post UT, with liver cirrhosis (etiology BAR?) history of hepatic encephalopathy was brought to the emergency room by his family for altered mental status. The patient is known to our service from previous admissions. He is on lactulose and the patient patient's reports that he takes it daily to have 1 BM daily. No reports of any melena or bright red blood per rectum. No nausea, vomiting, hematemesis. His ammonia on admission was 83. Pt was given lactulose 2 doses since admission and he has had 2-3 BM. Denies any fever, chills or diaphoresis, diarrhea, cough. Past medical history is end-stage renal disease on dialysis,[id number] diabetes, liver cirrhosis, hepatic encephalopathy, atrial fibrillation, CHF, cellulitis of lower extremities, coronary artery disease, UT, hypothyroidism Surgical history: Hernia repair, left knee replacement, cholecystectomy, PTCA on 03/21/2017 with drug-eluting stent Social history: No history of tobacco, history of EtOH, no history of illicit drug use Family history: Denies any GI related malignancy ROS: Systems reviewed with positive findings see HPI. Objective - Vital Signs/Intake and Output Vital Signs (last 24 hours): Temp Pulse Resp BP Pulse Ox 97.5 F L 70 18 119/58 L 99 05/08/18 18:00 05/08/18 18:00 05/08/18 18:00 05/08/18 18:00 05/08/18 10:24 Intake and Output: 05/08/18 05/09/18 18:59 06:59 Intake Total 2500 Balance 2500 - Medications Medications: Current Medications Aspirin (Ecotrin) 81 mg PO DAILY [facility] Last Admin: 05/08/18 10:14 Dose: 81 mg Famotidine (Pepcid) 20 mg PO Q12 [facility] Sodium Chloride (Sodium Chloride 0.9%) 1,000 mls @ 80 mls/hr IV .[id number] [facility] Last Admin: 05/08/18 12:35 Dose: Not Given Pantoprazole Sodium (Protonix 40mg Ivpb) 40 mg in 100 mls @ 20 mls/hr IVPB .Q5H [facility] Stop: 05/11/18 08:00 Last Admin: 05/08/18 17:31 Dose: Not Given Insulin Human Lispro (Humalog Low) 0 units SC ACHS [facility]; Protocol Last Admin: 05/08/18 17:30 Dose: 1 unit Insulin Lispro Protam/Lispro Human (Humalog Mix 75/25) 25 units SC 0700,1700 [facility] Last Admin: 05/08/18 17:31 Dose: 25 units Lactulose (Enulose) 20 gm PO DAILY [facility] Levothyroxine Sodium (Synthroid) 88 mcg PO DAILY [facility] Last Admin: 05/08/18 10:14 Dose: 88 mcg Metoprolol Succinate (Toprol Xl) 25 mg PO DAILY [facility] Last Admin: 05/08/18 13:08 Dose: 25 mg Nitroglycerin (Nitrostat Sl Tab) 0.4 mg SL Q5M PRN PRN Reason: Pain, Chest Non-Formulary Medication (Ranolazine [Ranexa]) 1,000 mg PO BID [facility] Last Admin: 05/08/18 17:31 Dose: 1,000 mg Liraglutide [Victoza (3-Anuel] 1.2 Mg)) 1.2 mg SC QPM [facility] Last Admin: 05/08/18 17:32 Dose: Not Given Ondansetron HCl (Zofran Odt) 4 mg PO Q8H [facility] Last Admin: 05/08/18 13:08 Dose: 4 mg Ticagrelor (Brilinta) 90 mg PO BID [facility] Last Admin: 05/08/18 17:34 Dose: 90 mg - Labs Labs: 05/07/18 20:50 05/08/18 10:20 PT 14.4 SECONDS (9.4-12.5) H 05/08/18 15:45 INR 1.30 05/08/18 15:45 - Constitutional Appears: Non-toxic, No Acute Distress - Head Exam Head Exam: ATRAUMATIC, NORMOCEPHALIC - Eye Exam Eye Exam: Normal appearance - ENT Exam ENT Exam: Mucous Membranes Moist, Normal Exam - Neck Exam Neck Exam: Normal Inspection - Respiratory Exam Respiratory Exam: Clear to Ausculation Bilateral, NORMAL BREATHING PATTERN. absent: Rales, Rhonchi, Wheezes, Respiratory Distress - Cardiovascular Exam Cardiovascular Exam: REGULAR RHYTHM, +S1, +S2 - GI/Abdominal Exam GI & Abdominal Exam: Soft, Normal Bowel Sounds. absent: Distended, Firm, Guarding, Rigid, Tenderness, Mass, Organomegaly, Rebound - Extremities Exam Extremities Exam: Pedal Edema - Neurological Exam Neurological Exam: Alert, Awake Additional comments: oriented to person and place but not time; +asterix - Psychiatric Exam Additional comments: could not assess - Skin Skin Exam: Dry, Intact, Normal Color, Warm
--- NOTE | 2018-05-08 19:29 | CP.PCM.CON ---
<Morro Garrido - Last Filed: 05/08/18 19:35> History of Present Illness - History of Present Illness History of Present Illness: PGY5 Initial GI Consult PGY5 GI Initial Consult Andrew Tanner is a 72-year-old male with a history of end-stage renal disease on HD?, hypertension, coronary artery disease, status post WI, with liver cirrhosis (etiology BAR?) history of hepatic encephalopathy was brought to the emergency room by his family for altered mental status. The patient is known to our service from previous admissions. He is on lactulose and the patient patient's reports that he takes it daily to have 1 BM daily. No reports of any melena or bright red blood per rectum. No nausea, vomiting, hematemesis. His ammonia on admission was 83. Pt was given lactulose 2 doses since admission and he has had 2-3 BM. Denies any fever, chills or diaphoresis, diarrhea, cough. Past medical history is end-stage renal disease on dialysis,[id number] diabetes, liver cirrhosis, hepatic encephalopathy, atrial fibrillation, CHF, cellulitis of lower extremities, coronary artery disease, WI, hypothyroidism Surgical history: Hernia repair, left knee replacement, cholecystectomy, PTCA on 03/21/2017 with drug-eluting stent Social history: No history of tobacco, history of EtOH, no history of illicit drug use Family history: Denies any GI related malignancy ROS: Systems reviewed with positive findings see HPI. Past Patient History - Infectious Disease Hx of Infectious Diseases: None - Tetanus Immunizations Tetanus Immunization: Unknown - Past Social History Smoking Status: Former Smoker - CARDIAC Hx Angina: Yes Hx Cardia Arrhythmia: Yes Hx Congestive Heart Failure: Yes Hx Hypertension: Yes Hx Peripheral Edema: Yes Other/Comment: 11 Cardiac stents - PULMONARY Hx Respiratory Disorders: Yes Hx Chronic Obstructive Pulmonary Disease (COPD): Yes - NEUROLOGICAL Hx Neurological Disorder: No - HEENT Hx HEENT Problems: Yes (glasses) - RENAL Hx Chronic Kidney Disease: Yes Hx Renal Failure: Yes (Pt not on dialysis since may 2017) - ENDOCRINE/METABOLIC Hx Endocrine Disorders: Yes Hx Diabetes Mellitus Type 1: Yes Hx Hypothyroidism: Yes - HEMATOLOGICAL/ONCOLOGICAL Hx Blood Disorders: Yes Hx Cirrhosis: Yes (liver) - INTEGUMENTARY Hx Dermatological Problems: No - MUSCULOSKELETAL/RHEUMATOLOGICAL Hx Falls: No - GASTROINTESTINAL Hx Gastrointestinal Disorders: No - GENITOURINARY/GYNECOLOGICAL Hx Genitourinary Disorders: No - PSYCHIATRIC Hx Emotional Abuse: No Hx Physical Abuse: No - SURGICAL HISTORY Hx Cardiac Catheterization: Yes Hx Cholecystectomy: Yes Hx Coronary Stent: Yes (11 stents as per patient) Hx Musculoskeletal Surgery: Yes (B/L total knee replacement) - ANESTHESIA Hx Anesthesia: Yes Hx Anesthesia Reactions: No Hx Malignant Hyperthermia: No Meds Allergies/Adverse Reactions: Allergies Allergy/AdvReac Type Severity Reaction Status Date / Time No Known Allergies Allergy Verified 05/07/18 19:43 - Medications Medications: Current Medications Aspirin (Ecotrin) 81 mg PO DAILY [facility] Last Admin: 05/08/18 10:14 Dose: 81 mg Famotidine (Pepcid) 20 mg PO Q12 [facility] Sodium Chloride (Sodium Chloride 0.9%) 1,000 mls @ 80 mls/hr IV .[id number] [facility] Last Admin: 05/08/18 12:35 Dose: Not Given Pantoprazole Sodium (Protonix 40mg Ivpb) 40 mg in 100 mls @ 20 mls/hr IVPB .Q5H [facility] Stop: 05/11/18 08:00 Last Admin: 05/08/18 17:31 Dose: Not Given Insulin Human Lispro (Humalog Low) 0 units SC ACHS [facility]; Protocol Last Admin: 05/08/18 17:30 Dose: 1 unit Insulin Lispro Protam/Lispro Human (Humalog Mix 75/25) 25 units SC 0700,1700 [facility] Last Admin: 05/08/18 17:31 Dose: 25 units Lactulose (Enulose) 20 gm PO DAILY [facility] Levothyroxine Sodium (Synthroid) 88 mcg PO DAILY [facility] Last Admin: 05/08/18 10:14 Dose: 88 mcg Metoprolol Succinate (Toprol Xl) 25 mg PO DAILY [facility] Last Admin: 05/08/18 13:08 Dose: 25 mg Nitroglycerin (Nitrostat Sl Tab) 0.4 mg SL Q5M PRN PRN Reason: Pain, Chest Non-Formulary Medication (Ranolazine [Ranexa]) 1,000 mg PO BID [facility] Last Admin: 05/08/18 17:31 Dose: 1,000 mg Liraglutide [Victoza (3-Anuel] 1.2 Mg)) 1.2 mg SC QPM [facility] Last Admin: 05/08/18 17:32 Dose: Not Given Ondansetron HCl (Zofran Odt) 4 mg PO Q8H [facility] Last Admin: 05/08/18 13:08 Dose: 4 mg Ticagrelor (Brilinta) 90 mg PO BID [facility] Last Admin: 05/08/18 17:34 Dose: 90 mg Physical Exam - Constitutional Appears: Non-toxic, No Acute Distress - Head Exam Head Exam: ATRAUMATIC, NORMOCEPHALIC - Eye Exam Eye Exam: Normal appearance Pupil Exam: NORMAL ACCOMODATION - ENT Exam ENT Exam: Mucous Membranes Moist, Normal Exam - Neck Exam Neck exam: Positive for: Normal Inspection - Respiratory Exam Respiratory Exam: Clear to Auscultation Bilateral, NORMAL BREATHING PATTERN. absent: Rales, Rhonchi, Wheezes, Respiratory Distress - Cardiovascular Exam Cardiovascular Exam: REGULAR RHYTHM, +S1, +S2 - GI/Abdominal Exam GI & Abdominal Exam: Distended, Normal Bowel Sounds, Soft. absent: Firm, Guarding, Hernia, Rebound, Rigid - Extremities Exam Extremities exam: Positive for: pedal edema. Negative for: joint swelling - Neurological Exam Neurological exam: Alert Additional comments: oriented to person and place but not time - Psychiatric Exam Psychiatric exam: Normal Affect, Normal Mood - Skin Skin Exam: Dry, Intact, Normal Color, Warm Results - Vital Signs Recent Vital Signs: Last Vital Signs Temp 97.5 F L 05/08/18 18:00 Pulse 70 05/08/18 18:00 Resp 18 05/08/18 18:00 BP 119/58 L 05/08/18 18:00 Pulse Ox 99 05/08/18 10:24 - Labs Result Diagrams: 05/07/18 20:50 05/08/18 10:20 Labs: Laboratory Results - last 24 hr 05/07/18 05/07/18 05/07/18 20:50 20:50 21:06 WBC 5.2 RBC 2.83 L Hgb 9.5 L Hct 26.6 L MCV 94.0 MCH 33.6 MCHC 35.7 RDW 15.8 H Plt Count 97 L MPV 10.2 Neut % (Auto) 66.2 Lymph % (Auto) 15.9 L [place] % (Auto) 14.0 H Eos % (Auto) 3.5 Baso % (Auto) 0.4 Lymph # (Auto) 0.8 L [place] # (Auto) 0.7 H Eos # (Auto) 0.2 Baso # (Auto) 0.02 Absolute Neuts (auto) 3.45 PT INR pO2 23 L VBG pH 7.40 VBG pCO2 36.0 L VBG HCO3 22.3 VBG Total CO2 23.4 VBG O2 Sat (Calc) 49.1 VBG Base Excess -2.0 L VBG Potassium 4.6 Glucose 146 H Lactate 1.5 FiO2 21.0 Sodium 138 137.0 Potassium 4.5 Chloride 105 107.0 Carbon Dioxide 21 Anion Gap 16 BUN 70 H Creatinine 4.5 H Est GFR ( Amer) 16 Est GFR (Non-Af Amer) 13 Random Glucose 141 H Calcium 9.6 Phosphorus Magnesium Iron TIBC % Saturation Total Bilirubin 0.9 AST 33 ALT 9 Alkaline Phosphatase 130 H Ammonia Lactate Dehydrogenase 590 Total Creatine Kinase 58 Troponin I 0.02 D Total Protein 8.0 Albumin 4.0 Globulin 4.0 Albumin/Globulin Ratio 1.0 L Venous Blood Potassium 4.6 Urine Color Urine Appearance Urine pH Ur Specific [place] Urine Protein Urine Glucose (UA) Urine Ketones Urine Blood Urine Nitrate Urine Bilirubin Urine Urobilinogen Ur Leukocyte Esterase Urine RBC Urine WBC Ur Epithelial Cells Urine Bacteria 05/07/18 05/08/18 05/08/18 22:29 00:15 07:00 WBC RBC Hgb Hct MCV MCH MCHC RDW Plt Count MPV Neut % (Auto) Lymph % (Auto) [place] % (Auto) Eos % (Auto) Baso % (Auto) Lymph # (Auto) [place] # (Auto) Eos # (Auto) Baso # (Auto) Absolute Neuts (auto) PT INR pO2 VBG pH VBG pCO2 VBG HCO3 VBG Total CO2 VBG O2 Sat (Calc) VBG Base Excess VBG Potassium Glucose Lactate FiO2 Sodium Potassium Chloride Carbon Dioxide Anion Gap BUN Creatinine Est GFR ( Amer) Est GFR (Non-Af Amer) Random Glucose Calcium Phosphorus Magnesium Iron 124 TIBC 333 % Saturation 37 Total Bilirubin AST ALT Alkaline Phosphatase Ammonia 60 H Lactate Dehydrogenase Total Creatine Kinase Troponin I Total Protein Albumin Globulin Albumin/Globulin Ratio Venous Blood Potassium Urine Color Yellow Urine Appearance Clear Urine pH 6.0 Ur Specific [place] 1.025 Urine Protein Trace H Urine Glucose (UA) Negative Urine Ketones Negative Urine Blood Negative Urine Nitrate Negative Urine Bilirubin Negative Urine Urobilinogen 0.2 Ur Leukocyte Esterase Negative Urine RBC 0 - 2 Urine WBC 0 - 2 Ur Epithelial Cells 0 - 2 Urine Bacteria None 05/08/18 05/08/18 05/08/18 10:20 10:20 15:45 WBC RBC Hgb Hct MCV MCH MCHC RDW Plt Count MPV Neut % (Auto) Lymph % (Auto) [place] % (Auto) Eos % (Auto) Baso % (Auto) Lymph # (Auto) [place] # (Auto) Eos # (Auto) Baso # (Auto) Absolute Neuts (auto) PT 14.4 H INR 1.30 pO2 VBG pH VBG pCO2 VBG HCO3 VBG Total CO2 VBG O2 Sat (Calc) VBG Base Excess VBG Potassium Glucose Lactate FiO2 Sodium 137 Potassium 4.9 Chloride 106 Carbon Dioxide 18 L Anion Gap 17 BUN 69 H Creatinine 4.2 H Est GFR ( Amer) 17 Est GFR (Non-Af Amer) 14 Random Glucose 216 H Calcium 9.4 Phosphorus 4.6 H Magnesium 2.2 Iron TIBC % Saturation Total Bilirubin 1.2 AST 34 ALT 15 Alkaline Phosphatase 128 H Ammonia 83 H Lactate Dehydrogenase Total Creatine Kinase Troponin I 0.02 Total Protein 7.8 Albumin 3.9 Globulin 3.9 Albumin/Globulin Ratio 1.0 L Venous Blood Potassium Urine Color Urine Appearance Urine pH Ur Specific [place] Urine Protein Urine Glucose (UA) Urine Ketones Urine Blood Urine Nitrate Urine Bilirubin Urine Urobilinogen Ur Leukocyte Esterase Urine RBC Urine WBC Ur Epithelial Cells Urine Bacteria Assessment & Plan - Assessment and Plan (Free Text) Assessment: Andrew Tanner is a 72-year-old male with a history of end-stage renal disease on HD?, hypertension, coronary artery disease, status post WI, with liver cirrhosis (etiology BAR?) history of hepatic encephalopathy was brought to the emergency room by his family for altered mental status. Decompensated Liver Cirrhosis etiology unknown (BAR?) MELD-Na 05/08/18: 25 HE Grade 2, improving ESRD CAD Hx of colon polyps Plan: -start xifaxan 550mg BID -will eval tomorrow for additional Lactulose -Daily MELD labs -recommend U/S Liver duplex with AFP for HCC screening -low sodium diet as tolerated -Dialysis as per nephrology -r/o infectous source, CXR (neg), blood cultures pending, UA neg -will continue to follow D/W Dr. Mejia <Delbert Mejia V - Last Filed: 05/09/18 00:24> Meds - Medications Medications: Current Medications Aspirin (Ecotrin) 81 mg PO DAILY [facility] Last Admin: 05/08/18 10:14 Dose: 81 mg Famotidine (Pepcid) 20 mg PO Q12 [facility] Last Admin: 05/08/18 21:39 Dose: 20 mg Sodium Chloride (Sodium Chloride 0.9%) 1,000 mls @ 80 mls/hr IV .[id number] [facility] Last Admin: 05/08/18 12:35 Dose: Not Given Pantoprazole Sodium (Protonix 40mg Ivpb) 40 mg in 100 mls @ 20 mls/hr IVPB .Q5H [facility] Stop: 05/11/18 08:00 Last Admin: 05/08/18 21:40 Dose: 20 mls/hr Insulin Human Lispro (Humalog Low) 0 units SC ACHS [facility]; Protocol Last Admin: 05/08/18 21:33 Dose: Not Given Insulin Lispro Protam/Lispro Human (Humalog Mix 75/25) 25 units SC 0700,1700 [facility] Last Admin: 05/08/18 17:31 Dose: 25 units Lactulose (Enulose) 20 gm PO DAILY [facility] Levothyroxine Sodium (Synthroid) 88 mcg PO DAILY [facility] Last Admin: 05/08/18 10:14 Dose: 88 mcg Metoprolol Succinate (Toprol Xl) 25 mg PO DAILY [facility] Last Admin: 05/08/18 13:08 Dose: 25 mg Nitroglycerin (Nitrostat Sl Tab) 0.4 mg SL Q5M PRN PRN Reason: Pain, Chest Non-Formulary Medication (Ranolazine [Ranexa]) 1,000 mg PO BID [facility] Last Admin: 05/08/18 17:31 Dose: 1,000 mg Liraglutide [Victoza (3-Anuel] 1.2 Mg)) 1.2 mg SC QPM [facility] Last Admin: 05/08/18 17:32 Dose: Not Given Ondansetron HCl (Zofran Odt) 4 mg PO Q8H [facility] Last Admin: 05/08/18 21:39 Dose: 4 mg Rifaximin (Xifaxan) 550 mg PO BID [facility]; Protocol Last Admin: 05/08/18 21:39 Dose: 550 mg Ticagrelor (Brilinta) 90 mg PO BID [facility] Last Admin: 05/08/18 17:34 Dose: 90 mg Results - Vital Signs Recent Vital Signs: Last Vital Signs Temp 97.5 F L 05/08/18 18:00 Pulse 70 05/08/18 18:00 Resp 18 05/08/18 18:00 BP 119/58 L 05/08/18 18:00 Pulse Ox 99 05/08/18 10:24 - Labs Result Diagrams: 05/07/18 20:50 05/08/18 10:20 Labs: Laboratory Results - last 24 hr 05/07/18 05/08/18 05/08/18 22:29 00:15 07:00 PT INR Sodium Potassium Chloride Carbon Dioxide Anion Gap BUN Creatinine Est GFR ( Amer) Est GFR (Non-Af Amer) Random Glucose Calcium Phosphorus Magnesium Iron 124 TIBC 333 % Saturation 37 Ferritin Total Bilirubin AST ALT Alkaline Phosphatase Ammonia 60 H Troponin I Total Protein Albumin Globulin Albumin/Globulin Ratio Urine Color Yellow Urine Appearance Clear Urine pH 6.0 Ur Specific [place] 1.025 Urine Protein Trace H Urine Glucose (UA) Negative Urine Ketones Negative Urine Blood Negative Urine Nitrate Negative Urine Bilirubin Negative Urine Urobilinogen 0.2 Ur Leukocyte Esterase Negative Urine RBC 0 - 2 Urine WBC 0 - 2 Ur Epithelial Cells 0 - 2 Urine Bacteria None 05/08/18 05/08/18 05/08/18 07:00 10:20 10:20 PT INR Sodium 137 Potassium 4.9 Chloride 106 Carbon Dioxide 18 L Anion Gap 17 BUN 69 H Creatinine 4.2 H Est GFR ( Amer) 17 Est GFR (Non-Af Amer) 14 Random Glucose 216 H Calcium 9.4 Phosphorus 4.6 H Magnesium 2.2 Iron TIBC % Saturation Ferritin 91.9 Total Bilirubin 1.2 AST 34 ALT 15 Alkaline Phosphatase 128 H Ammonia 83 H Troponin I 0.02 Total Protein 7.8 Albumin 3.9 Globulin 3.9 Albumin/Globulin Ratio 1.0 L Urine Color Urine Appearance Urine pH Ur Specific [place] Urine Protein Urine Glucose (UA) Urine Ketones Urine Blood Urine Nitrate Urine Bilirubin Urine Urobilinogen Ur Leukocyte Esterase Urine RBC Urine WBC Ur Epithelial Cells Urine Bacteria 05/08/18 15:45 PT 14.4 H INR 1.30 Sodium Potassium Chloride Carbon Dioxide Anion Gap BUN Creatinine Est GFR ( Amer) Est GFR (Non-Af Amer) Random Glucose Calcium Phosphorus Magnesium Iron TIBC % Saturation Ferritin Total Bilirubin AST ALT Alkaline Phosphatase Ammonia Troponin I Total Protein Albumin Globulin Albumin/Globulin Ratio Urine Color Urine Appearance Urine pH Ur Specific [place] Urine Protein Urine Glucose (UA) Urine Ketones Urine Blood Urine Nitrate Urine Bilirubin Urine Urobilinogen Ur Leukocyte Esterase Urine RBC Urine WBC Ur Epithelial Cells Urine Bacteria Attending/Attestation - Attestation I have personally seen and examined this patient.: Yes I have fully participated in the care of the patient.: Yes I have reviewed all pertinent clinical information: Yes Notes (Text): This is an addendum to GI progress report dictated by the GI Fellow. The patient was seen and examined earlier. Medical records, lab studies, imagings were reviewed. Last 24 hours events reviewed. Agreed with the above treatment plan as outlined in GI Fellow 's notes with the addition of the following 05/09/18 00:23
--- NOTE | 2018-05-08 20:27 | CON ---
DATE: 05/08/2018 LOCATION: The patient is in room 263, bed 1. REASON FOR CONSULTATION: Chest pain, coronary artery disease, renal dysfunction, and cirrhosis of liver. HISTORY OF PRESENT ILLNESS: The patient is a 73-year-old male who has extensive history of coronary artery disease with multiple stents and also has renal failure, was on dialysis temporarily later on dialysis was discontinued, because BUN and creatinine stayed stable, creatinine was between 2 and 3. The patient also known to have hypertension and hyperlipidemia. He was admitted to hospital that he was feeling very weak and generalized aches and pain and he vomited at home twice yesterday. He felt nauseous. Denies abdominal pain. While in the hospital, the patient has episode of chest pain this morning, which was sharp in the middle of the chest. The patient states different pain than his cardiac pain which used to be like tightness, but this was sharp pain and now he is pain free. The patient's ammonia level was found to be high and also tremor of left extremity, which is related to his metabolic state with ammonia high and BUN and creatinine high and history of cirrhosis of liver. The patient lying flat in bed without any shortness of breath. PAST MEDICAL HISTORY: Significant for coronary artery disease, multiple stent insertion, diabetes, hypertension, hyperlipidemia, renal failure was on dialysis one time, later on dialysis was stopped because of improvement in BUN and creatinine which was still elevated, creatinine was between 2 and 3 and BUN was around 60, sometime BUN was around 40. The patient has recent history of rotablation of RCA at [facility], history of recent PTCA of LAD on 10/06/2017 and then the patient had PTCA with rotablation on 10/20/2017. RECENT CARDIAC WORKUP: The patient had catheterization done on 10/24/2017 when the patient had a stenting of the proximal RCA, plain balloon angioplasty of the mid RCA for in-stent restenosis and stent of the distal RCA with a drug eluting stent on 10/24/2017. Prior to that, the patient had cardiac catheterization on 10/06/2017 where the stent of the mid LAD, drug-eluting stent was done and stenting of the proximal LAD was done, and prior to that, the patient had rotablation of RCA at [facility] on 08/31/2017, because of heavily calcified tortuous artery, history of end-stage renal failure, at one point, the patient was on dialysis, but later was off dialysis because of improvement in BUN and creatinine, but he never went into normal, baseline creatinine between 2.5 to 3 and BUN around 60, but sometime BUN did go down to 40. The patient has history of hyperkalemia, and also had been on lactulose due to cirrhosis of liver. Last catheterization, ejection fraction noted to be 55%, end diastolic pressure was 15. Echo dated 08/23/2017 showed ejection fraction 55%, mild valvular aortic stenosis, mitral regurgitation [id number], mild tricuspid regurgitation, RV systolic pressure of 57 mmHg suggestive of moderate pulmonary hypertension. PRU test was done at one point and found to be patient resistant to Plavix, so the patient was switched over to Brilinta. PERSONAL HISTORY: Denies smoking. Denies alcohol abuse. HOME MEDICATIONS: Included metolazone 5 mg daily, isosorbide 30 mg daily, metoprolol succinate XL 25 mg daily, Victoza 3-1.25 mg subcutaneous every p.m., Synthroid 88 mcg p.o. daily, lactulose 15 mL p.o. daily, insulin 70/30, NovoLog 25 units subcutaneous morning and evening, Brilinta 90 mg b.i.d., Ranexa 1000 mg b.i.d., ranitidine HCL 150 mg p.o. b.i.d., and aspirin 81 mg daily. REVIEW OF SYSTEMS: All the systems reviewed, positives mentioned in the history, otherwise negative. ALLERGIES: THE PATIENT DENIES ANY ALLERGIES. PHYSICAL EXAMINATION: VITAL SIGNS: Blood pressure 134/70, respirations 18, pulse 75, and temperature 97.8. HEENT: Head is normocephalic. Eyes; pupils normal. Conjunctivae slightly pale. NECK: JVP low. Carotids equal. THORAX: AP diameter normal. LUNGS: Clear. CARDIOVASCULAR: S1 and S2. Ejection systolic murmur grade 2-3/6. No rub. ABDOMEN: Soft. No tenderness. No organomegaly. Bowel sounds normal. EXTREMITIES: No clubbing. No cyanosis. No leg edema. LABORATORY DATA: WBC 5.2, hemoglobin 9.5, hematocrit 26.6, and platelet 97. Sodium 137, potassium 4.9, BUN 69, creatinine 4.2, and random glucose 216, phosphorus 4.6, magnesium 2.2, AST 34, ALT 15, alkaline phosphatase 128, ammonia level yesterday was 62, today is 83, troponin 0.02 x2, total protein 7.8, albumin 3.9. Chest x-ray clear. EKG; not good quality, because the patient was having tremor, but on close review EKG shows sinus rhythm, but due to tremors sometime it gives impression of atrial fibrillation with junctional rhythm, but actually the patient is on prolonged NE sinus rhythm, first degree AV block. CT of the head is normal. DIAGNOSES: Atypical chest pain, sharp pain, the patient stated when he had heart pain that was pressured, so this is a different type of pain; coronary artery disease; history of multiple stents insertion and balloon angioplasty; renal failure; hypertension; hyperlipidemia; diabetes mellitus; elevated ammonia level; cirrhosis of liver; thrombocytopenia; anemia; renal failure. The patient had episode of confusion at home as per family. PLAN: The patient's chest pain is not typical of cardiac, it was atypical pain, different than the pain which he used to have with cardiac problem, which was like chest pressure. We will continue Brilinta 90 mg b.i.d., aspirin 81 mg daily, and lactulose. The patient got multiple doses of lactulose and now is on lactulose 20 g p.o. daily. Insulin has been ordered, Lispro mixed 75/25 at 25 units subcutaneously b.i.d., Pepcid 20 mg p.o. every 12 hours, Protonix 40 mg IV daily, Ranolazine 1000 mg b.i.d., IV fluid continued because the patient also has sign of dehydration, Levothyroxine 88 mcg p.o. daily, and metoprolol succinate 25 mg p.o. daily. We will continue present therapy and we will follow with you closely. Isabella Connors MD MTDD
--- NOTE | 2018-05-09 00:51 | CON ---
DATE: 05/08/2018 REASON FOR CONSULTATION: Altered mental status, acute kidney injury superimposed on chronic kidney disease, stage IV. HISTORY OF PRESENT ILLNESS: A 73-year-old male known to me from prior evaluation, the patient was brought to the emergency room by family members because of altered mental status, lethargy, decreased p.o. intake, decreased appetite, episodes of vomiting. As per the caregiver, the patient was extremely fatigued, but he was not complaining of any abdominal pain or cough or shortness of breath. He denied any changes in his urine output. He denied any changes in his bowel movements. He is on lactulose 10 mg daily. He is also on Lasix 40 mg alternating with 20 mg every other day. In the emergency room, he was found to be somewhat hypotensive. His initial blood work showed a BUN of 17, a creatinine of 4.5. His last creatinine was 3.1 in March. Consultation is requested for acute kidney injury. PAST MEDICAL AND SURGICAL HISTORY: NIDDM, hypertension, cirrhosis of the liver, hepatic encephalopathy, acute kidney injury requiring dialysis, chronic kidney disease stage IV, CAD, PTCA and stents, peripheral vascular disease, anemia of chronic disease, COPD, CHF. FAMILY HISTORY: Noncontributory. SOCIAL HISTORY: Ex-smoker, Ex-alcohol abuser, no IV drug abuse. ALLERGIES: NO KNOWN DRUG ALLERGIES. MEDICATIONS AT HOME: Metolazone 5, furosemide 40/20 every other day, Brilinta, Ranexa, aspirin, lactulose, Synthroid 88, Victoza, Toprol-XL 25, isosorbide. REVIEW OF SYSTEMS: All systems are reviewed, pertinent positives as mentioned in history of presenting illness, rest unremarkable. PHYSICAL EXAMINATION: GENERAL: Elderly male lying in bed, lethargic, but responsive. VITAL SIGNS: Blood pressure 113/53, heart rate 75, respiratory rate 18 to 20, temperature 97.8. HEENT: Normocephalic, atraumatic, positive pallor. NECK: Supple, no JVD. LUNGS: Bilateral equal air entry, bilateral equal expansion, no rales. CARDIAC: S1, S2, regular rate and rhythm, no murmur, no rub. ABDOMEN: Obese, distended, soft, nontender, bowel sounds present. EXTREMITIES: No lower extremity edema. INTAKE AND OUTPUT: Not charted. LABORATORY DATA: WBC 5.2, hemoglobin 9.5, hematocrit 26.6, platelets 97. Sodium 137, potassium 4.9, chloride 106, CO2 of 18, BUN 69, creatinine 4.2, glucose 216, calcium 9.4, phosphorus 4.6, magnesium 2.2, albumin 3.9, ammonia level 83. Urinalysis, yellow, clear, pH 6, specific gravity 1.025, protein trace. CURRENT MEDICATIONS: Brilinta, Ecotrin, Enulose, insulin, liraglutide, Pepcid, Protonix, Ranexa 1000 b.i.d., normal saline at 80, Synthroid, Toprol-XL 25, Zofran. ASSESSMENT: 1. Acute kidney injury superimposed on chronic kidney disease stage IV. 2. Prerenal azotemia in the setting of decreased p.o. intake, lethargy, nausea, vomiting, and continued Lasix and metolazone. 3. [id number] diabetes mellitus. 4. Hypertension. 5. Cirrhosis of the liver, decompensated. 6. Coronary artery disease/Percutaneous transluminal coronary angioplasty and stents, compensated. 7. Anemia. 8. Altered mental status. PLAN: 1. Continue IV fluids, the patient appears dehydrated. 2. Continue to hold Lasix and metolazone. 3. Renal parameters are slowly improving. 4. Check CBC again in a.m. 5. Check iron stores. 6. No indication for renal replacement therapy at this time. Selina Garcia MD
[2018-05-09] MEDS: Sodium Chloride 0.9% 1,000 ML IV SCH ×3 (01:05→22:00)
[2018-05-09] MEDS: Pantoprazole 40mg/100mL NS 40 MG/100 ML BAG IVPB SCH (02:50)
[2018-05-09 06:29] LABS: INR 1.17; PROTHROMBIN TIME 13.2 SECONDS (9.4-12.5)
[2018-05-09 06:44] LABS: BASO # 0.03 K/mm3 (0.0-2.0); BASO % 0.6 % (0.0-3.0); EOS # 0.2 (0.0-0.7); EOS % 3.1 % (1.5-5.0); HEMOGLOBIN 9.3 g/dL (14.0-18.0); LYMPH # 0.9 (1.2-3.4); LYMPH % 19.2 % (22.0-35.0); MEAN CELL VOLUME 94.9 fl (80.0-105.0); MEAN CORPUSCULAR HEMOGLOBIN 34.2 pg (25.0-35.0); MEAN PLATELET VOLUME 10.4 fl (7.0-11.0); MONO # 0.5 (0.1-0.6); MONO % 10.2 % (1.0-6.0); RBC 2.72 10^6/uL (3.5-6.1); RED CELL DISTRIBUTION WIDTH 15.9 % (11.5-14.5); WHITE BLOOD COUNT 4.8 10^3/uL (4.5-11.0)
[2018-05-09 06:48] LABS: ALB/GLOB RATIO 0.9 (1.1-1.8); ALBUMIN 3.7 g/dL (3.0-4.8); CALCIUM 9.3 mg/dL (8.4-10.5)
[2018-05-09] MEDS: Insulin Lispro (humaLOG) LOW Coverage SC SCH ×4 (08:12→22:35)
[2018-05-09] MEDS: Insulin Lispro (humaLOG) MIX 75/25(10 ml) SC SCH ×2 (08:30→17:44)
--- NOTE | 2018-05-09 08:59 | US ---
PROCEDURE: Portal vein duplex ultrasound. CLINICAL HISTORY: Cirrhosis. Deteriorating liver function. Evaluate for portal vein thrombosis. PHYSICIAN(S): Emery Dia M.D. FINDINGS: The visualized hepatic parenchyma is heterogeneous and somewhat poorly seen. No obvious lesion is noted on these limited images. The extrahepatic portal vein is patent with hepatopetal flow. Hepatic artery is prominent and patent the 3 central hepatic veins are patent. The spleen is enlarged. No ascites is appreciated in the upper abdomen IMPRESSION: 1. Patent portal vein with hepatopetal flow.
[2018-05-09] MEDS ORDERED: Lactulose 10 gm/15 ml (Rectal Use) PR SCH (10:00)
[2018-05-09] MEDS: Metoprolol Succinate 25 mg XL Tab PO SCH (10:45)
[2018-05-09] MEDS: Non Formulary Medication (Ranolazine [Ranexa] 1,000 MG) PO SCH ×2 (10:46→17:44)
[2018-05-09] MEDS: Levothyroxine 88 MCG TAB PO SCH (10:46)
--- NOTE | 2018-05-09 11:27 | CP.PCM.PN ---
Subjective - Date & Time of Evaluation Date of Evaluation: 05/09/18 Time of Evaluation: 07:20 - Subjective Subjective: PGY5 GI Follow-up Alert and oriented x 3 Tolerating diet Denies any abd pain +BM ROS: 12 point ROS conducted, neg other than above Objective - Vital Signs/Intake and Output Vital Signs (last 24 hours): Temp Pulse Resp BP Pulse Ox 97.8 F 72 20 123/60 97 05/09/18 06:00 05/09/18 10:45 05/09/18 06:00 05/09/18 10:45 05/09/18 06:00 Intake and Output: 05/09/18 05/09/18 06:59 18:59 Intake Total 0 Output Total 300 Balance -300 - Medications Medications: Current Medications Aspirin (Ecotrin) 81 mg PO DAILY [facility] Last Admin: 05/09/18 10:46 Dose: 81 mg Sodium Chloride (Sodium Chloride 0.9%) 1,000 mls @ 80 mls/hr IV .[id number] [facility] Last Admin: 05/09/18 01:05 Dose: Not Given Insulin Human Lispro (Humalog Low) 0 units SC ACHS [facility]; Protocol Last Admin: 05/09/18 08:12 Dose: Not Given Insulin Lispro Protam/Lispro Human (Humalog Mix 75/25) 25 units SC 0700,1700 [facility] Last Admin: 05/09/18 08:30 Dose: 25 units Lactulose (Enulose) 20 gm PO DAILY [facility] Last Admin: 05/09/18 10:45 Dose: 20 gm Levothyroxine Sodium (Synthroid) 88 mcg PO DAILY [facility] Last Admin: 05/09/18 10:46 Dose: 88 mcg Metoprolol Succinate (Toprol Xl) 25 mg PO DAILY [facility] Last Admin: 05/09/18 10:45 Dose: 25 mg Nitroglycerin (Nitrostat Sl Tab) 0.4 mg SL Q5M PRN PRN Reason: Pain, Chest Non-Formulary Medication (Ranolazine [Ranexa]) 1,000 mg PO BID [facility] Last Admin: 05/09/18 10:46 Dose: 1,000 mg Liraglutide [Victoza (3-Anuel] 1.2 Mg)) 1.2 mg SC QPM [facility] Last Admin: 05/08/18 17:32 Dose: Not Given Ondansetron HCl (Zofran Odt) 4 mg PO Q8H [facility] Last Admin: 05/09/18 06:12 Dose: 4 mg Pantoprazole Sodium (Protonix Ec Tab) 40 mg PO 0600 [facility] Rifaximin (Xifaxan) 550 mg PO BID [facility]; Protocol Last Admin: 05/09/18 10:45 Dose: 550 mg Ticagrelor (Brilinta) 90 mg PO BID [facility] Last Admin: 05/09/18 10:46 Dose: 90 mg - Labs Labs: 05/09/18 06:00 05/09/18 06:00 PT 13.2 SECONDS (9.4-12.5) H 05/09/18 06:00 INR 1.17 05/09/18 06:00 - Constitutional Appears: Non-toxic, No Acute Distress - Head Exam Head Exam: ATRAUMATIC, NORMOCEPHALIC - Eye Exam Eye Exam: Normal appearance - ENT Exam ENT Exam: Mucous Membranes Moist, Normal Exam - Neck Exam Neck Exam: Normal Inspection - Respiratory Exam Respiratory Exam: Clear to Ausculation Bilateral, NORMAL BREATHING PATTERN. absent: Rales, Rhonchi, Wheezes, Respiratory Distress - Cardiovascular Exam Cardiovascular Exam: REGULAR RHYTHM, +S1, +S2 - GI/Abdominal Exam GI & Abdominal Exam: Soft, Normal Bowel Sounds. absent: Distended, Firm, Guarding, Rigid, Tenderness, Mass, Organomegaly, Pulsatile Mass, Rebound - Extremities Exam Extremities Exam: Pedal Edema (improved since yesterday) - Neurological Exam Neurological Exam: Alert, Awake, Oriented x3 - Psychiatric Exam Psychiatric exam: Normal Affect, Normal Mood - Skin Skin Exam: Dry, Intact, Normal Color, Warm Assessment and Plan - Assessment and Plan (Free Text) Assessment: Andrew Tanner is a 72-year-old male with a history of end-stage renal disease on HD?, hypertension, coronary artery disease, status post [place], with liver cirrhosis (etiology BAR?) history of hepatic encephalopathy was brought to the emergency room by his family for altered mental status. Decompensated Liver Cirrhosis etiology unknown (BAR?) MELD-Na 05/09/18: 24 HE Grade 2, resolved [place] on CKD ([place] Cr~3.5-4) CAD Hx of colon polyps Plan: -continue xifaxan 550mg BID -Educated family and pt about proper use of lactulose and titration of dose so pt will have 2-3 BM (only) daily -Abd U/S w/ duplex 05/09/2018: no obvious lesion (though limited study) and patent portal flow; would benefit from Triple Phase CT but nephrotoxic risk is too high (which was discussed with family)... AFP pending; Repeat in 6 months -low sodium diet as tolerated -*correction*: pt is not currently getting dialysis for the last 1 year -nephrology on board, recommendations noted -agree with fluids -consider albumin? -as pt is not currently a good candidate for EGD therefore variceal screening; will speak to Cardiology in regards of possibly switching Metoprolol to Carvedilol (if possible) D/W Dr. Mejia
--- NOTE | 2018-05-09 13:55 | PN ---
DATE: 05/09/2018 REASON FOR CONSULTATION AND FOLLOWUP: Extensive history of coronary artery disease, admitted with altered mental status secondary to acute kidney injury, renal failure, elevated ammonia level and chest pain. SUBJECTIVE: The patient denies any chest pain, shortness of breath, much awake and alert. is at the bedside. Denies any chest pain. Denies any prior episode of chest pain prior to coming here except one episode of sharp chest pain. OBJECTIVE: GENERAL: Not in apparent. VITAL SIGNS: Temperature afebrile, heart rate 64, blood pressure 106/52. HEENT: PERRLA. Extraocular muscles intact. NECK: Supple. No carotid bruits or thyromegaly. CHEST: Clear to auscultation. HEART: S1 and S2 regular. ABDOMEN: Soft. EXTREMITIES: Clubbing and cyanosis, negative. LABORATORY DATA: Blood workup as follows; WBC , hemoglobin 9, hematocrit 25.8, platelet count 87. Chemistry shows sodium 130, potassium 5.1, chloride 110, carbon dioxide 20, anion gap of 13, BUN 63, creatinine 4.1. Total bilirubin 1.4, AST 34, ALT 15, ammonia level 45. Admitting ammonia level was 60, yesterday was 83. IMPRESSION: A 73-year-old male with very extensive history of coronary artery disease, status post right coronary artery, multiple stent including rotablation at [facility] at 08/31/2017 followed by the mid to distal right coronary artery stent of 10/24/2017. Prior to that the patient had mid left anterior descending stent 10/06/2017; history of chronic kidney disease, at one point the patient was on dialysis, now of dialysis; admitted due to altered mental status and found to be elevated BUN and creatinine as well as elevated ammonia level 83, now was trending. The patient got lactulose as well as getting IV fluid. The patient has one episode of chest pain with sharp in nature, but so far troponin remains negative. Troponin is flat, no evidence of acute myocardial infarction. Chest pain was atypical in nature, history of hypertension, history of hyperlipidemia, and diabetes. RECOMMENDATIONS: Continue lactulose, mild gentle hydration, avoid nephrotoxic medication. Continue baby aspirin, continue Brilinta, the patient is resistant to Plavix. Continue lactulose. Monitor ammonia level. Continue levothyroxine, continue metoprolol, continue Xifaxan for hepatic insufficiency and for hepatic encephalopathy. We will follow with you. Thank you Dr. Reyes, for providing us the opportunity in taking care of the patient, Andrew Tanner. Isabella Mcgregor MD
--- NOTE | 2018-05-09 17:54 | PN ---
DATE: 05/09/2018 SUBJECTIVE: The patient is currently seen sitting comfortably on telemetry. He is with his sister. He is eating well and appears to be in no acute distress and appears to be back to baseline levels. His ammonia level had been treated with appropriate therapy and is now lower. MEDICATIONS: Medication list reviewed. The patient is on Brilinta, Ecotrin, lactulose, insulin, Victoza, nitroglycerin tablets, Protonix, Ranexa, normal saline, Synthroid, Toprol, Xifaxan, and Zofran p.r.n. OBJECTIVE: INTAKE/OUTPUT: Intake is 2500, output is 300. VITAL SIGNS: Blood pressure 123/63, temperature 97.6, pulse of 72, respiratory rate of 18, pulse ox is 97%. HEENT: Exam shows him to be normocephalic, atraumatic. Conjunctivae are pale. Sclerae are nonicteric. NECK: Supple. No neck vein distention. CHEST: Clear to auscultation and percussion. No rales, rhonchi, or wheezing. CARDIOVASCULAR: Shows a regular rate and rhythm. Positive /AI/MR/TR. No S3, no S4, no rub. ABDOMEN: Soft. Bowel sounds normal. Nondistended. No rebound, guarding, or masses. No appreciable organomegaly. EXTREMITIES: Show no lower extremity cyanosis, clubbing, or edema. NEUROLOGIC: Shows no asterixis. LABORATORY DATA AND IMAGING: Abdominal ultrasound done on 05/08/2018 shows no ascites in the upper abdomen, slightly enlarged spleen. Patent portal vein with hepatic flow. Admitting head CT scan showed no acute findings. Labs: CBC; white blood cell count 4.8, hemoglobin 9.3 with a platelet count of 87,000. Chemistries show a sodium of 138, potassium 5, CO2 of 20 with a chloride of 110. BUN is 63 with a creatinine of 4.1. Baseline BUN is in the 50s with a baseline creatinine in the upper 2 range. Glucose was 109. Phosphorus, calcium, magnesium levels are all normal. Bilirubin 1.4, liver enzymes otherwise unremarkable. Albumin is 3.7. Urine is unremarkable. Microbiology, blood cultures are negative at 24 hours. Iron saturations are 37%. ASSESSMENT: 1. Acute renal insufficiency superimposed on chronic kidney disease stage IV with baseline BUN in the mid 50s with the baseline creatinine in the [id number] 2 range. In all likelihood, prerenal azotemia is secondary to decreased oral intake, continued use of diuretics, nausea and vomiting. The patient had no diarrhea. The patient will continue on IV fluid hydration until his BUN and creatinine will fall to baseline levels. 2. History of insulin-dependent diabetes mellitus. The patient remains on insulin therapy. 3. History of hypertension, well controlled on present medical therapy. 4. History of cirrhosis of the liver with history of hepatic encephalopathy. Ammonia level has dropped from 83 to 45. Liver enzymes are acceptable. 5. History of arteriosclerotic heart disease, status post percutaneous transluminal coronary angioplasty and stent, status post rotablation in the summer of 2018. 6. History of anemia, currently stable. Hemoglobin is in the 9-10 range secondary to chronic kidney disease. 7. History of altered mental status secondary to elevated ammonia levels. 8. History of peripheral vascular disease, stable. 9. History of hypothyroidism. The patient remains on thyroid replacement therapy. We will check a T4, TSH level. PLAN: 1. I will continue IV fluid hydration perhaps one more day. Caution not to overhydrate the patient. 2. Continue to hold Lasix and metolazone. These medications should be used only for lower extremity edema, hyperkalemia, or ascites. 3. Continue to monitor labs on a daily basis. 4. No IV iron supplement is necessary, iron saturation is 37%. 5. The patient is improving quickly. He should continue Xifaxan and lactulose. The patient states he will likely be discharged in 48 hours. Manpreet Dalton MD
--- NOTE | 2018-05-09 20:18 | HP ---
DATE OF EXAM: 05/09/2018 ADMITTING HISTORY AND PHYSICAL HISTORY OF PRESENT ILLNESS: The patient is a 73-year-old male who presents to the emergency room complaining of nausea and vomiting for the past one and a half days. His family noted also some mental status changes. The patient was not as a sharp and clear as he had been in the past. Onset of pain was shortly after eating a hot dog and tater tots from [employer]. He became weak, complained of pain all over his body in his joints and his muscles, therefore presented to the emergency room and is admitted. PAST MEDICAL HISTORY: The patient is known to have a past medical history positive for congestive heart failure, insulin-dependent diabetes mellitus, asbestosis, deep vein thrombosis, hypothyroidism, cirrhosis of the liver with ascites. He has chronic renal failure has been doing well without dialysis for the past several months. He has multiple coronary stents placed in the past, status post cardiac ablation for atrial fibrillation. SOCIAL HISTORY: He is known to be a former smoker. He is a nonalcoholic drinker. He is , with children. ALLERGIES: HE HAS NO MEDICAL ALLERGIES. MEDICATIONS: At the time of admission included metoprolol succinate 25 mg daily, NovoLog mix 70/30 at 25 units in the morning and in the evening, lactulose 15 ml p.o. daily, Victoza 1.2 mg subcutaneously in the evening. He has nitroglycerin sublingual tablets to be taken as needed for chest pain. Vitamin B complex, Brilinta 90 mg p.o. twice a day, Synthroid 88 mcg daily, ranitidine 150 mg twice a day, Ranexa 1000 mg twice a day, isosorbide dinitrate 30 mg daily and metolazone 5 mg daily. REVIEW OF SYSTEMS: As above. The patient is specially complaining of overall aches and pains in the muscles. PHYSICAL EXAMINATION: VITAL SIGNS: His blood pressure is 106/66, heart rate is 67 beats per minute, and he is afebrile at 97.6 degrees Fahrenheit. HEAD, EYES, EARS, NOSE AND THROAT: Unremarkable. NECK: Supple with no lymphadenopathy. No goiter. LUNGS: Clear to auscultation and percussion. HEART: Regular. No murmurs are appreciated. ABDOMEN: Diffusely tender on palpation. There is no rebound. No Batres's punch. No CVA tenderness. EXTREMITIES: Free of cyanosis, clubbing or edema. NEUROLOGIC: The patient is awake, alert and oriented. However, he appears to be weak and tired. LABORATORY DATA: Studies show the white blood cell count to be 5.2, hemoglobin and hematocrit are 9.5 and 26.6 respectively, and platelet count is low at 97. Sodium is 138, potassium is 4.5, blood urea nitrogen is 70 which is higher than his baseline which is usually between 50 and 60, creatinine is 4.5 which is also higher than his baseline which is usually between two and a half and three. Ammonia level is 60. Urinalysis is negative. CAT scan of the head is negative. EKG shows regular sinus rhythm with first-degree AV block and poor R-wave progression in precordial leads. Chest x- ray shows no acute disease, but there are pleural plaques consistent with his history of asbestosis. Liver enzymes show the total bilirubin to be normal at 0.9, AST and ALT are normal at 33 and 9 respectively, alkaline phosphatase is mildly elevated at 130. IMPRESSION AND PLAN: The patient is to be started on IV fluids for rehydration. Consultation is requested from Dr. Garcia, his paving and surfacing labourer; Dr. Connors, his bowl turner. We will also request a consult from Dr. Mejia, his occasional babysitter. The patient's will be reevaluated in the morning. Jim Reyes MD
[2018-05-09 23:08] VITALS: O2SAT 100
--- NOTE | 2018-05-10 00:42 | PN ---
DATE: 05/09/2018 SUBJECTIVE: The patient was seen this Tuesday evening in room 263, bed 1. Sitting up in bed, comfortable, awake and alert, in good spirits with his and sister and son at the bedside. Vomiting has quieted. Mental status has improved dramatically and patient's feels his symptoms are related to diarrhea as well as elevated ammonia levels. He seems to be having troubled with lactulose and the diarrhea. It causes giving him dehydration and altered mental status and lethargy. PLAN: He is started on Xifaxan. We will follow. The patient is hoping for discharge soon depending on his p.o. intake and morning labs. Berto Reyes MD MTDD
[2018-05-10] MEDS ORDERED: Pantoprazole 40 mg EC Tab PO SCH (06:00)
[2018-05-10 06:18] LABS: BASO # 0.03 K/mm3 (0.0-2.0); BASO % 0.6 % (0.0-3.0); EOS # 0.2 (0.0-0.7); EOS % 3.5 % (1.5-5.0); HEMOGLOBIN 8.7 g/dL (14.0-18.0); LYMPH # 1.1 (1.2-3.4); LYMPH % 22.5 % (22.0-35.0); MEAN CELL VOLUME 94.5 fl (80.0-105.0); MEAN CORPUSCULAR HEMOGLOBIN 34.3 pg (25.0-35.0); MEAN CORPUSCULAR HGB CONC 36.3 g/dl (31.0-37.0); MEAN PLATELET VOLUME 10.6 fl (7.0-11.0); MONO # 0.6 (0.1-0.6); MONO % 13.1 % (1.0-6.0); RBC 2.54 10^6/uL (3.5-6.1); RED CELL DISTRIBUTION WIDTH 15.8 % (11.5-14.5); WHITE BLOOD COUNT 4.8 10^3/uL (4.5-11.0)
[2018-05-10 06:23] LABS: INR 1.24
[2018-05-10 07:01] LABS: ALB/GLOB RATIO 0.9 (1.1-1.8); ALBUMIN 3.5 g/dL (3.0-4.8); CALCIUM 8.9 mg/dL (8.4-10.5)
[2018-05-10] MEDS: Insulin Lispro (humaLOG) LOW Coverage SC SCH (07:30)
[2018-05-10] MEDS: Insulin Lispro (humaLOG) MIX 75/25(10 ml) SC SCH (07:54)
[2018-05-10] MEDS: Sodium Chloride 0.9% 1,000 ML IV SCH (07:56)
--- NOTE | 2018-05-10 08:02 | CP.PCM.PN ---
Subjective - Date & Time of Evaluation Date of Evaluation: 05/10/18 Time of Evaluation: 06:25 - Subjective Subjective: Awake, sitting side of bed, feels better Reason for consultation and follow up: Cardiac follow up for extensive coronary artery disease admitted for altered mental status secondary to acute kidney injury, elevated ammonia level Seen and examined by me and Dr. Mcgregor Objective - Vital Signs/Intake and Output Vital Signs (last 24 hours): Temp Pulse Resp BP Pulse Ox 98.2 F 61 20 107/58 L 100 05/10/18 06:00 05/10/18 06:00 05/10/18 06:00 05/10/18 06:00 05/10/18 06:00 Intake and Output: 05/10/18 05/10/18 06:59 18:59 Intake Total 2400 Output Total 1025 Balance 2400 -1025 - Medications Medications: Current Medications Aspirin (Ecotrin) 81 mg PO DAILY [facility] Last Admin: 05/09/18 10:46 Dose: 81 mg Sodium Chloride (Sodium Chloride 0.9%) 1,000 mls @ 80 mls/hr IV .[id number] [facility] Last Admin: 05/10/18 07:56 Dose: Not Given Insulin Human Lispro (Humalog Low) 0 units SC ACHS [facility]; Protocol Last Admin: 05/09/18 22:35 Dose: Not Given Insulin Lispro Protam/Lispro Human (Humalog Mix 75/25) 25 units SC 0700,1700 [facility] Last Admin: 05/10/18 07:54 Dose: Not Given Lactulose (Enulose) 20 gm PO DAILY [facility] Last Admin: 05/09/18 10:45 Dose: 20 gm Levothyroxine Sodium (Synthroid) 88 mcg PO DAILY [facility] Last Admin: 05/09/18 10:46 Dose: 88 mcg Metoprolol Succinate (Toprol Xl) 25 mg PO DAILY [facility] Last Admin: 05/09/18 10:45 Dose: 25 mg Nitroglycerin (Nitrostat Sl Tab) 0.4 mg SL Q5M PRN PRN Reason: Pain, Chest Non-Formulary Medication (Ranolazine [Ranexa]) 1,000 mg PO BID [facility] Last Admin: 05/09/18 17:44 Dose: 1,000 mg Liraglutide [Victoza (3-Anuel] 1.2 Mg)) 1.2 mg SC QPM [facility] Last Admin: 05/09/18 17:45 Dose: Not Given Ondansetron HCl (Zofran Odt) 4 mg PO Q8H [facility] Last Admin: 05/10/18 05:30 Dose: Not Given Pantoprazole Sodium (Protonix Ec Tab) 40 mg PO 0600 [facility] Last Admin: 05/10/18 05:30 Dose: 40 mg Rifaximin (Xifaxan) 550 mg PO BID [facility]; Protocol Last Admin: 05/09/18 17:44 Dose: 550 mg Ticagrelor (Brilinta) 90 mg PO BID [facility] Last Admin: 05/09/18 17:44 Dose: 90 mg - Labs Labs: 05/10/18 05:55 05/10/18 05:55 PT 14.0 SECONDS (9.4-12.5) H 05/10/18 05:55 INR 1.24 05/10/18 05:55 - Constitutional Appears: Non-toxic, No Acute Distress - Head Exam Head Exam: NORMAL INSPECTION, NORMOCEPHALIC - Eye Exam Eye Exam: Normal appearance Pupil Exam: NORMAL ACCOMODATION - ENT Exam ENT Exam: Mucous Membranes Moist, Normal Exam - Neck Exam Neck Exam: Full ROM, Normal Inspection - Respiratory Exam Respiratory Exam: Clear to Ausculation Bilateral, NORMAL BREATHING PATTERN - Cardiovascular Exam Cardiovascular Exam: REGULAR RHYTHM, +S1, +S2 - GI/Abdominal Exam GI & Abdominal Exam: Soft, Normal Bowel Sounds - Extremities Exam Extremities Exam: Full ROM, Normal Capillary Refill - Neurological Exam Neurological Exam: Alert, Awake, Oriented x3 - Psychiatric Exam Psychiatric exam: Normal Affect, Normal Mood - Skin Skin Exam: Dry, Normal Color, Warm Assessment and Plan - Assessment and Plan (Free Text) Assessment: A 73 year old male who was brought to the ER due to altered mental status due to elevated ammonia. History of congestive heart failure, IDDM, deep vein thrombosis, liver cirrhosis, asbestosis, chronic renal failure, history of extensive coronary artery disease post multiple stents, including high risk rotoblation stent of RCA at [facility] on 08/31/2017 followed [place] mid to distal [place] [facility]. Stent of LAD on 10/06/17. History of chronic kidney disease and at one point had hemodialysis. Admitted for dehydration and elevated ammonia level of 83. Lactulose was given. IV fluids for hydration. Ammonia level trending. Feels much better today.Cardiac status stable. Plan: No distress, feels better today Cardiac status stable Heart rate stable Blood pressure stable Repeat ammonia level today Continue current treatment Continue current medications GI and Renal on consult Will follow up Plan and treatment discussed with Dr. Mcgregor
[2018-05-10] MEDS: Non Formulary Medication (Ranolazine [Ranexa] 1,000 MG) PO SCH (09:28)
[2018-05-10] MEDS: Levothyroxine 88 MCG TAB PO SCH (09:29)
[2018-05-10] MEDS: Metoprolol Succinate 25 mg XL Tab PO SCH (09:29)
--- NOTE | 2018-05-10 11:34 | CARD ---
APPROVED REPORT Date of service: 05/10/2018 EKG Measurement Heart [id number] <Conclusion> Sinus rhythm with 1st degree AV block Inferior infarct, age Old. ST-T Changes.
[2018-05-10 12:34] VITALS: BP 133/72; PULSE 68; RESP 18; TEMP 97.3
--- NOTE | 2018-05-10 17:52 | PN ---
DATE: 05/10/2018 SUBJECTIVE: The patient is seen sitting in bed. Awake, alert, is comfortable. He denies any pain. He denies any shortness of breath. He denies any bad taste. PHYSICAL EXAMINATION: GENERAL: Elderly male sitting in bed. VITAL SIGNS: Blood pressure 132/72, heart rate 68, respiratory rate 18, temperature 97.3. HEENT: Normocephalic, atraumatic, positive pallor. NECK: Supple, no JVD. LUNGS: Bilateral equal entry, bilateral equal expansion. CARDIAC: S1, S2, regular rate and rhythm, no murmur, no rub. ABDOMEN: Soft, nondistended, nontender, bowel sounds present. EXTREMITIES: No lower extremity edema. INTAKE AND OUTPUT: Not charted. LABORATORY DATA: Hemoglobin 8.7, potassium 5.1, BUN 56, creatinine 3.5, glucose 134, calcium 8.9, albumin 3.5, ammonia level 70. Urine culture E coli. CURRENT MEDICATIONS: Aspirin, Brilinta, lactulose 20 g daily, insulin, Victoza, Protonix, Ranexa, Synthroid, Toprol XL, Xifaxan, Zofran. ASSESSMENT: 1. Acute kidney injury superimposed on chronic kidney disease stage IV, secondary to dehydration, ? precipitated by urinary tract infection. 2. Hepatic encephalopathy. 3. Non-insulin dependent diabetes mellitus. 4. Hypertension. 5. Coronary artery disease/percutaneous transluminal coronary angioplasty and stents. PLAN: 1. acute kidney injury. 2. No uremic signs or symptoms. 3. No plans for renal replacement therapy. 4. Lasix 40 mg p.o. three to four times per week as needed. 5. Continue lactulose. 6. Treat E-coli urinary tract infection? Selina Garcia MD
--- NOTE | 2018-05-11 09:07 | DS ---
HISTORY OF PRESENT ILLNESS: The patient is a 24-year-old male with a history of congestive heart failure, insulin-dependent diabetes mellitus, asbestosis, deep vein thrombosis, hypothyroidism, cirrhosis of the liver with ascites, chronic renal failure who has been doing well without dialysis for the past several months and coronary artery disease status post PTCA with multiple stent placements. He is also status post cardiac ablation for atrial fibrillation. He was admitted on May 08, 2018 with weakness, nausea and vomiting for the past 1-2 days. Onset was after eating a hotdog from [employer]. During his hospital stay, the patient was treated with IV fluids and his symptoms subsided. His BUN and creatinine were slightly higher than his normal baseline. Today his blood urea nitrogen is down to 56 and creatinine is 3.5. Baseline is usually around the 50s or 60s for the BUN and 2.5 to 3 for creatinine. He was seen by his saw grinder, Dr. Connors, his patient resource coordinator, Dr. Garcia during the hospital stay. The patient is doing well, he is awake, alert and oriented. His family is at bedside and he his to be discharged. He has been started on Xifaxan 550 mg twice a day. This will be called into the local [facility] for the patient to continue. Also he had been his seen by Gastroenterology Dr. Mejia and his lactulose has been altered. The patient has been instructed to alter the lactulose so he could have 2 to 3 bowel movements per day and not 5 or 6 as the patient had been having. The patient is discharged in a improved condition. FINAL DIAGNOSES: 1. Gastritis. 2. Dehydration. 3. Chronic renal failure. 4. Congestive heart failure. 5. Insulin-dependent diabetes mellitus. 6. Asbestosis. 7. Hypothyroidism. 8. Liver cirrhosis. 9. Coronary artery disease status post percutaneous transluminal coronary angioplasty. Jim Reyes MD MTDJessica
== END 2018-05-10 14:05 | disposition home or self-care (01) | DRG 433 ==
LOC: ED 19:09 → ERH 05-08 00:39 → 2RNO 05-08 02:24 → UNDODISIN 05-10 13:40
PROVIDERS: ADMIT Internal Medicine; ATTEND Internal Medicine
DX: K74.60 Unspecified cirrhosis of liver (principal); N17.9 Acute kidney failure, unspecified; N18.4 Chronic kidney disease, stage 4 (severe); I13.0 Hypertensive heart and chronic kidney disease with heart failure and stage 1 through stage 4 chronic kidney disease, or unspecified chronic kidney disease; N39.0 Urinary tract infection, site not specified; I50.9 Heart failure, unspecified; E86.0 Dehydration; B96.20 Unspecified Escherichia coli [E. coli] as the cause of diseases classified elsewhere; E11.22 Type 2 diabetes mellitus with diabetic chronic kidney disease; I08.3 Combined rheumatic disorders of mitral, aortic and tricuspid valves; E11.51 Type 2 diabetes mellitus with diabetic peripheral angiopathy without gangrene; E03.9 Hypothyroidism, unspecified; I25.10 Atherosclerotic heart disease of native coronary artery without angina pectoris; D63.8 Anemia in other chronic diseases classified elsewhere; E78.5 Hyperlipidemia, unspecified; I48.91 Unspecified atrial fibrillation; J44.9 Chronic obstructive pulmonary disease, unspecified; D69.6 Thrombocytopenia, unspecified; Z79.4 Long term (current) use of insulin; Z87.891 Personal history of nicotine dependence; Z95.5 Presence of coronary angioplasty implant and graft; Z79.02 Long term (current) use of antithrombotics/antiplatelets; Z79.82 Long term (current) use of aspirin; I25.2 Old myocardial infarction; Z86.718 Personal history of other venous thrombosis and embolism; Z86.010 Personal history of colon polyps; Z87.09 Personal history of other diseases of the respiratory system

== ENCOUNTER 2018-05-20 20:50 | Inpatient (IN) | payer MEDICARE, OTHER ==
[2018-05-20 20:53] VITALS: BMI 28.1
[2018-05-20] MEDS ORDERED: Sodium Chloride 0.9% 1,000 ML IV STA ×3 (21:09→22:40)
--- NOTE | 2018-05-20 21:11 | ED PDOC ---
Arrival/HPI - General Chief Complaint: Syncope Time Seen by Provider: 05/20/18 20:52 Historian: Patient, Spouse - History of Present Illness Narrative History of Present Illness (Text): 05/20/18 21:11 Andrew Tanner is a 73 year old male, whose past medical history includes CHF, CAD with multiple cardiac stents, cirrhosis, and Stage 4 renal failure, who presents to the emergency department accompanied by status post syncopal episode. states patient had a witnessed syncopal episode while using the bathroom this evening prior to arrival and subsequently vomited. Patient notes he currently feels weak and "tired." notes patient has had decreased appetite and low blood pressure over the past few days. Patient denies any headache, chest pain, abdominal pain, or any other complaints. Symptom Onset: Gradual Symptom Course: Unchanged Activities at Onset: Light Context: Home Past Medical History - Provider Review Nursing Documentation Reviewed: Yes - Infectious Disease Hx of Infectious Diseases: None - Tetanus Immunization Tetanus Immunization: Unknown - Cardiac Hx Cardiac Disorders: Yes (CAD, 11 cardiac stents, angina, cardiac arrythmia,) Hx Congestive Heart Failure: Yes Hx Hypertension: Yes - Pulmonary Hx Respiratory Disorders: Yes Hx Chronic Obstructive Pulmonary Disease (COPD): Yes - Neurological Hx Neurological Disorder: No - HEENT Hx HEENT Disorder: Yes (glasses) - Renal Hx Renal Failure: Yes (renal insufficiency) - Endocrine/Metabolic Hx Diabetes Mellitus Type 1: Yes Hx Hypothyroidism: Yes - Hematological/Oncological Hx Blood Disorders: Yes Hx Cirrhosis: Yes (liver) - Integumentary Hx Dermatological Disorder: No - Musculoskeletal/Rheumatological Hx Falls: No - Gastrointestinal Hx Gastrointestinal Disorders: No - Genitourinary/Gynecological Hx Genitourinary Disorders: No - Psychiatric Hx Emotional Abuse: No Hx Physical Abuse: No Hx Substance Use: No - Surgical History Hx Cardiac Catheterization: Yes Hx Cholecystectomy: Yes Hx Coronary Stent: Yes (11 stents as per patient) Hx Musculoskeletal Surgery: Yes (B/L total knee replacement) - Anesthesia Hx Anesthesia: Yes Hx Anesthesia Reactions: No Hx Malignant Hyperthermia: No - Suicidal Assessment Feels Threatened In Home Enviroment: No Family/Social History - Physician Review Nursing Documentation Reviewed: Yes Family/Social History: Unknown Family HX Smoking Status: Former Smoker Hx Alcohol Use: Yes (former) Hx Substance Use: No Allergies/Home Meds Allergies/Adverse Reactions: Allergies No Known Allergies Allergy (Verified 05/20/18 20:57) Home Medications: Home Meds Medication Instructions Recorded Confirmed Metoprolol Succinate XL [Toprol XL] 25 mg PO DAILY 02/17/17 05/20/18 Insulin Aspart Prot/Insuln Asp 25 unit SC 0700,1700 03/12/17 05/20/18 [Novolog Mix 70-30 Vial] Lactulose [Generlac] 15 ml PO DAILY 04/19/17 05/20/18 Liraglutide [Victoza 3-Anuel] 1.2 mg SC QPM 07/21/17 05/20/18 Nitroglycerin [Nitrostat] 0.4 mg SL PRN PRN 07/21/17 05/20/18 Vitamin B Complex [Super B-50 1 tab PO DAILY 07/21/17 05/07/18 Complex] Ticagrelor [Brilinta] 90 mg PO BID 10/06/17 05/20/18 Levothyroxine [Synthroid] 88 mcg PO DAILY 10/20/17 05/20/18 Ranitidine HCl [Acid Deliver Driver 150] 150 mg PO BID 10/20/17 05/20/18 Ranolazine [Ranexa] 1,000 mg PO BID 10/20/17 05/20/18 Isosorbide Dinitrate 30 mg PO DAILY 05/07/18 05/20/18 Metolazone 5 mg PO DAILY 05/07/18 05/20/18 Review of Systems - Physician Review All systems were reviewed & negative as marked: Yes - Review of Systems Constitutional: Fatigue, Other (+generalized weakness) Eyes: Normal ENT: Normal Respiratory: Normal. absent: SOB, Cough Cardiovascular: Syncope. absent: Chest Pain Gastrointestinal: Vomiting, Appetite Changes (+decreased appetite). absent: Abdominal Pain Genitourinary Male: Normal. absent: Dysuria, Frequency Musculoskeletal: Normal. absent: Back Pain, Neck Pain Skin: Normal. absent: Rash Neurological: Normal. absent: Headache Endocrine: Normal Hemo/Lymphatic: Normal Psychiatric: Normal Physical Exam Vital Signs Reviewed: Yes Temperature: Afebrile Blood Pressure: Hypotensive Pulse: Regular Respiratory Rate: Normal Appearance: Positive for: Non-Toxic Pain Distress: None Mental Status: Positive for: Lethargic - Systems Exam Head: Present: Atraumatic, Normocephalic Pupils: Present: PERRL Extroacular Muscles: Present: EOMI Conjunctiva: Present: Normal Mouth: Present: Moist Mucous Membranes Neck: Present: Normal Range of Motion Respiratory/Chest: Present: Clear to Auscultation, Good Air Exchange. No: Respiratory Distress, Accessory Muscle Use Cardiovascular: Present: Regular Rate and Rhythm, Normal S1, S2. No: Murmurs Abdomen: No: Tenderness, Distention, Peritoneal Signs Back: Present: Normal Inspection Upper Extremity: Present: Normal Inspection. No: Cyanosis, Edema Lower Extremity: Present: Normal Inspection. No: Edema Neurological: Present: GCS=15, CN II-XII Intact, Speech Normal Skin: Present: Warm, Dry, Normal Color. No: Rashes Psychiatric: Present: Lethargic Medical Decision Making ED Course and Treatment: 05/20/18 21:11 Impression: 73 year old male brought in s/p syncopal episode with generalized weakness, fatigue, and loss of appetite. Plan: -- CT Head w/o contrast -- EKG -- Chest X-ray -- Labs, cardiac enzymes, ammonia level -- IV fluids -- Reassess and disposition Prior Visits: Notes and results from previous visits were reviewed. Progress Notes: Reviewed EKG, junctional rhythm at 53 bpm. Incomplete LBBB. Non-specific T wave changes. 05/20/18 22:41 Pt remains hypotensive after 3 boluses of IV fluids in Emergency department, will order on Dopamine drip. Labs reviewed, troponin: 1.70, creatinine: 5.3, BUN: 78. Case discussed with Dr. Reyes, who is aware and agrees with plan. Accepts pt in to his service. Requests Dr. Mcgregor, Dr. Dalton, and Dr. Mejia on consult. Pt to be admitted to CCU for hypotension, syncope, renal insufficiency, dehydration, possible NSTEMI. 05/20/18 22:[address] Chaparro, surface lay out technician, who is aware and agrees to evaluate pt for ICU admission. 05/20/18 23:19 Called to pt bedside. Pt bradycardic, hypotensive, and unresponsive. Atropine ordered. Manufacturing Scheduler present at bedside. Family states pt is DNR/DNI. - Critical Care Critical Care Minutes: 30 minutes - Lab Interpretations I have reviewed the lab results: Yes - RAD Interpretation Radiology Orders: 05/20/18 20:57 HEAD W/O CONTRAST [CT] Stat 05/20/18 20:58 CHEST PORTABLE [RAD] Stat Cigar Head Perforator: ED Physician - EKG Interpretation Interpreted by ED Physician: Yes Type: 12 lead EKG - Medication Orders Current Medication Orders: Sodium Chloride (Sodium Chloride 0.9%) 1,000 mls @ 999 mls/hr IV .Q1H1M STA Stop: 05/20/18 22:09 - Scribe Statement The provider has reviewed the documentation as recorded by the Serjio Recio Provider Scribe Attestation: All medical record entries made by the Scribe were at my direction and pe rsonally dictated by me. I have reviewed the chart and agree that the record accurately reflects my personal performance of the history, physical exam, medical decision making, and the department course for this patient. I have also personally directed, reviewed, and agree with the discharge instructions and disposition. Disposition/Present on Arrival - Present on Arrival Any Indicators Present on Arrival: No History of DVT/PE: No History of Uncontrolled Diabetes: Yes Urinary Catheter: No History of Decub. Ulcer: No History Surgical Site Infection Following: None - Disposition Have Diagnosis and Disposition been Completed?: Yes Diagnosis: Dehydration, Renal insufficiency, Hypotension, NSTEMI (non-ST elevated myocardial infarction) Disposition: HOSPITALIZED Disposition Time: 23:25 Condition: CRITICAL
[2018-05-20 21:28] LABS: HEMOGLOBIN 8.1 g/dL (14.0-18.0); MEAN CELL VOLUME 95.8 fl (80.0-105.0); MEAN CORPUSCULAR HGB CONC 35.5 g/dl (31.0-37.0); MEAN PLATELET VOLUME 12.4 fl (7.0-11.0); RBC 2.38 10^6/uL (3.5-6.1); RED CELL DISTRIBUTION WIDTH 17.3 % (11.5-14.5); WHITE BLOOD COUNT 7.2 10^3/uL (4.5-11.0)
[2018-05-20 21:36] LABS: INR 1.17; PARTIAL THROMBOPLASTIN TIME 31.9 Seconds (26.9-38.3)
[2018-05-20 21:39] LABS: ALBUMIN 3.8 g/dL (3.0-4.8); CALCIUM 8.8 mg/dL (8.4-10.5)
[2018-05-20 22:26] LABS: TROPONIN I 1.7 ng/mL
[2018-05-20] MEDS ORDERED: DOPamine 400mg/250ml D5W 400 MG/250 ML BAG IV ONE (22:47)
[2018-05-20] MEDS ORDERED: DOPamine 400mg/250ml D5W 400 MG/250 ML BAG IV PRN (22:50)
[2018-05-20] MEDS ORDERED: Morphine 2 mg/ml ISec IVP PRN (23:48)
--- NOTE | 2018-05-21 00:37 | CP.PCM.CON ---
<Letty Leblanc - Last Filed: 05/21/18 01:09> History of Present Illness - History of Present Illness History of Present Illness: Letty Leblanc, PGY2, ICU Consult Note for Dr Chaparro: CC: vomiting, syncope Andrew Tanner is a 73 year old male, whose past medical history includes CHF, CAD with multiple cardiac stents, cirrhosis, and Stage 4 renal failure, presents to ED for syncopal episode. At the time of my exam, patient was confused, minimally responsive, BP 65/40s. Patient's (POA) and family at bedside. As per , patient had an episode of jerking movements of his body, vomiting, + urinary incontinence, tongue biting. Patient was unresponsive for 5 mins post seizure, EMS was called and patient was brought to ED. In ED, patient was afebrile with low BP 80/35, HR 40s, breathing on nasal cannula. Patient was give 3 L NS bolus and started on a dopamine drip with BP 65/30s, HR 30s, at the time of my exam. Patient also turned unresponsive. Patient's was asked about further care, stated that she wants to make patient DNR/DNI, wants no invasive procedures like central lines, imaging studies, wants patient to be comfortable. Patient's dopamine drip increased to 20 mcg/kg/min, given 1 mg IV atropine and epinephrine 1 mg IV x2. Patient's blood pressure transiently increased to 110/70s, with HR 98. As per family wishes, it was decided to stop further interventions. Patient's dopamine drip was stopped. Started on prn ativan and prn morphine for comfort care. Family at bedside. All questions and concerns answered. Not further examined as per family's wishes. Ginny Mcnamara, palliative nurse consulted. Does not need ICU care. Can go to med-surg floor. comfort care. Case seen and discussed with ICU attending, Dr Chaparro. Past Patient History - Infectious Disease Hx of Infectious Diseases: None - Tetanus Immunizations Tetanus Immunization: Unknown - Past Social History Smoking Status: Former Smoker - CARDIAC Hx Cardiac Disorders: Yes (CAD, 11 cardiac stents, angina, cardiac arrythmia,) Hx Congestive Heart Failure: Yes Hx Hypertension: Yes - PULMONARY Hx Respiratory Disorders: Yes Hx Chronic Obstructive Pulmonary Disease (COPD): Yes - NEUROLOGICAL Hx Neurological Disorder: No - HEENT Hx HEENT Problems: Yes (glasses) - RENAL Hx Renal Failure: Yes (renal insufficiency) - ENDOCRINE/METABOLIC Hx Diabetes Mellitus Type 1: Yes Hx Hypothyroidism: Yes - HEMATOLOGICAL/ONCOLOGICAL Hx Blood Disorders: Yes Hx Cirrhosis: Yes (liver) - INTEGUMENTARY Hx Dermatological Problems: No - MUSCULOSKELETAL/RHEUMATOLOGICAL Hx Falls: No - GASTROINTESTINAL Hx Gastrointestinal Disorders: No - GENITOURINARY/GYNECOLOGICAL Hx Genitourinary Disorders: No - PSYCHIATRIC Hx Emotional Abuse: No Hx Physical Abuse: No Hx Substance Use: No - SURGICAL HISTORY Hx Cardiac Catheterization: Yes Hx Cholecystectomy: Yes Hx Coronary Stent: Yes (11 stents as per patient) Hx Musculoskeletal Surgery: Yes (B/L total knee replacement) - ANESTHESIA Hx Anesthesia: Yes Hx Anesthesia Reactions: No Hx Malignant Hyperthermia: No Meds Allergies/Adverse Reactions: Allergies Allergy/AdvReac Type Severity Reaction Status Date / Time No Known Allergies Allergy Verified 05/20/18 20:57 - Medications Medications: Current Medications Lorazepam (Ativan) 0.5 mg IVP Q6H PRN; Protocol PRN Reason: Anxiety Morphine Sulfate (Morphine) 1 mg IVP Q4H PRN PRN Reason: Agitation Results - Vital Signs Recent Vital Signs: Last Vital Signs Temp 97.3 F L 05/20/18 21:02 Pulse 49 L 05/20/18 22:59 Resp 20 05/20/18 22:31 BP 80/35 L 05/20/18 22:59 Pulse Ox 100 05/20/18 22:31 - Labs Result Diagrams: 05/20/18 21:10 05/20/18 21:10 Labs: Laboratory Results - last 24 hr 05/20/18 05/20/18 05/20/18 21:10 21:10 21:10 WBC 7.2 D RBC 2.38 L Hgb 8.1 L Hct 22.8 L MCV 95.8 MCH 34.0 MCHC 35.5 RDW 17.3 H Plt Count 156 MPV 12.4 H PT 13.0 H INR 1.17 APTT 31.9 Sodium 132 Potassium 4.9 Chloride 100 Carbon Dioxide 14 L Anion Gap 22 H BUN 78 H Creatinine 5.3 H Est GFR ( Amer) 13 Est GFR (Non-Af Amer) 11 Random Glucose 167 H Calcium 8.8 Total Bilirubin 1.0 AST 31 ALT 17 Alkaline Phosphatase 127 H Ammonia Lactate Dehydrogenase 672 Total Creatine Kinase 110 Troponin I 1.70 H* D Total Protein 7.5 Albumin 3.8 Globulin 3.7 Albumin/Globulin Ratio 1.0 L 05/20/18 21:10 WBC RBC Hgb Hct MCV MCH MCHC RDW Plt Count MPV PT INR APTT Sodium Potassium Chloride Carbon Dioxide Anion Gap BUN Creatinine Est GFR ( Amer) Est GFR (Non-Af Amer) Random Glucose Calcium Total Bilirubin AST ALT Alkaline Phosphatase Ammonia 86 H Lactate Dehydrogenase Total Creatine Kinase Troponin I Total Protein Albumin Globulin Albumin/Globulin Ratio <Sangeeta Chaparro - Last Filed: 05/21/18 06:50> Meds - Medications Medications: Current Medications Lorazepam (Ativan) 0.5 mg IVP Q6H PRN; Protocol PRN Reason: Anxiety Morphine Sulfate (Morphine) 1 mg IVP Q4H PRN PRN Reason: Agitation Last Admin: 05/21/18 04:01 Dose: 1 mg Results - Vital Signs Recent Vital Signs: Last Vital Signs Temp 97.2 F L 05/21/18 06:00 Pulse 31 L 05/21/18 06:00 Resp 17 05/21/18 06:00 BP 66/41 L 05/21/18 01:55 Pulse Ox 95 05/21/18 06:00 - Labs Result Diagrams: 05/20/18 21:10 05/20/18 21:10 Labs: Laboratory Results - last 24 hr 05/20/18 05/20/18 05/20/18 21:10 21:10 21:10 WBC 7.2 D RBC 2.38 L Hgb 8.1 L Hct 22.8 L MCV 95.8 MCH 34.0 MCHC 35.5 RDW 17.3 H Plt Count 156 MPV 12.4 H PT 13.0 H INR 1.17 APTT 31.9 Sodium 132 Potassium 4.9 Chloride 100 Carbon Dioxide 14 L Anion Gap 22 H BUN 78 H Creatinine 5.3 H Est GFR ( Amer) 13 Est GFR (Non-Af Amer) 11 Random Glucose 167 H Calcium 8.8 Total Bilirubin 1.0 AST 31 ALT 17 Alkaline Phosphatase 127 H Ammonia Lactate Dehydrogenase 672 Total Creatine Kinase 110 Troponin I 1.70 H* D Total Protein 7.5 Albumin 3.8 Globulin 3.7 Albumin/Globulin Ratio 1.0 L 05/20/18 21:10 WBC RBC Hgb Hct MCV MCH MCHC RDW Plt Count MPV PT INR APTT Sodium Potassium Chloride Carbon Dioxide Anion Gap BUN Creatinine Est GFR ( Amer) Est GFR (Non-Af Amer) Random Glucose Calcium Total Bilirubin AST ALT Alkaline Phosphatase Ammonia 86 H Lactate Dehydrogenase Total Creatine Kinase Troponin I Total Protein Albumin Globulin Albumin/Globulin Ratio Attending/Attestation - Attestation I have personally seen and examined this patient.: No I have fully participated in the care of the patient.: Yes I have reviewed all pertinent clinical information: Yes Notes (Text): 05/21/18 06:48 Seen. Pt. deteriorated during clinical interview. Gave 1 atropine and 2 epin epherine. Family decided on DNR/DNI. CPR aborted and pt. made dying comfort measures.
[2018-05-21 01:56] VITALS: BP 66/41
[2018-05-21 06:24] VITALS: PULSE 31; RESP 17; TEMP 97.2; O2SAT 95
--- NOTE | 2018-05-21 09:04 | CP.PCM.PRO ---
Pronouncement of Note - Clinical Findings Physical Exam: No Response Verbal/Painful Stimuli, Absent Peripheral Puls es{Carotid & Femoral}, Absent Heart & Breath Sounds, Pupils Fixed & Dilated, Absence of Vital Signs - Pronouncement Time Time of Pronouncement of : 08:55 - Notifications Pronouncement Notifications: Family Notified (at bedside at time of pronouncement), Atending Notified Tubing Machine Operator Notified: Yes - Autopsy Autopsy Requested: No (Not by family, pending determination by M.Cristobal) - [place] [id number]
--- NOTE | 2018-05-21 19:49 | CARD ---
APPROVED REPORT Date of service: 05/20/2018 EKG Measurement Heart [id number] <Conclusion> Normal sinus rhythm with marked 1st degree AV block Nonspecific intraventricular block T wave abnormality, consider lateral ischemia Abnormal ECG
--- NOTE | 2018-05-22 00:56 | HP ---
DATE OF EXAM: 05/20/2018 ONE DAY ADMITTING HISTORY AND PHYSICAL AND EXPIRATION NOTE CHIEF COMPLAINT: Weakness, hypotension. HISTORY OF PRESENT ILLNESS: This was a 73-year-old man who presents to the emergency room chronically ill, but worsening acutely with generalized weakness. He was found to be hyposensitive, given IV fluids, evaluated for ICU, but the ER discussed the case with family since do not resuscitate order was in effect. He was admitted to medical monitoring floor for treatment. PAST MEDICAL HISTORY: The patient was known for congestive heart failure, diabetes treated with insulin, hypothyroidism, cirrhosis of liver, asbestosis, deep vein thrombosis, ascites, chronic renal failure with creatinine in the range of 4, coronary artery disease with multiple stents and status post cardiac ablation for atrial fibrillation. SOCIAL HISTORY: He was a former smoker. No longer drinks alcohol. He was , with grown children. ALLERGIES: HE HAD NO ALLERGIES TO MEDICATIONS. HOME MEDICATIONS: Include insulin, lactulose, metoprolol, Victoza, Brilinta, Synthroid, ranitidine, and Ranexa PHYSICAL EXAMINATION: See the ER note regarding the patient's status at the time of admission into the ER. COURSE OF HOSPITAL STAY: The patient was admitted to the medical floor, treated with IV fluids, consultants who knew the patient were notified. ER physician spoke to the family about palliative care and consultation with Minal Mcnamara was made. He was admitted to the medical floor with focus to be on comfort measures. He in the early Tuesday morning hours. I spoke with the family at the bedside, they were sad, but not surprised by his passing, it had been a long and difficult recent course with several hospitalizations just in the past few months. The patient was aware of his status as well. The family was thankful to the nursing staff for the care they had given in his final hours as well as to the entire medical treating team. FINAL DISCHARGE DIAGNOSES: 1. Coronary artery disease. 2. Congestive heart failure. 3. Renal failure. 4. Hepatic failure with cirrhosis and encephalopathy. 5. Diabetes. 6. History of hypertension. I spoke with director biomedical engineering office, body was released. We will sign the certificate. Berto Reyes MD [facility] # [id number]
== END 2018-05-21 08:55 ==
LOC: ED 20:50 → ERH 23:24 → 2RNO 05-21 01:02
PROVIDERS: ADMIT Internal Medicine; ATTEND Internal Medicine
DX: I21.4 Non-ST elevation (NSTEMI) myocardial infarction (principal); I13.0 Hypertensive heart and chronic kidney disease with heart failure and stage 1 through stage 4 chronic kidney disease, or unspecified chronic kidney disease; N18.4 Chronic kidney disease, stage 4 (severe); I95.9 Hypotension, unspecified; I50.9 Heart failure, unspecified; I25.10 Atherosclerotic heart disease of native coronary artery without angina pectoris; K74.60 Unspecified cirrhosis of liver; E03.9 Hypothyroidism, unspecified; E10.22 Type 1 diabetes mellitus with diabetic chronic kidney disease; E86.0 Dehydration; I48.91 Unspecified atrial fibrillation; J44.9 Chronic obstructive pulmonary disease, unspecified; J61 Pneumoconiosis due to asbestos and other mineral fibers; R32 Unspecified urinary incontinence; R56.9 Unspecified convulsions; Z51.5 Encounter for palliative care; Z66 Do not resuscitate; Z79.02 Long term (current) use of antithrombotics/antiplatelets; Z79.4 Long term (current) use of insulin; Z79.890 Hormone replacement therapy; Z87.891 Personal history of nicotine dependence; Z90.49 Acquired absence of other specified parts of digestive tract; Z95.5 Presence of coronary angioplasty implant and graft; Z96.653 Presence of artificial knee joint, bilateral